=== PATIENT | male | born 1965 | race Caucasian/White ===

== ENCOUNTER 2018-12-15 11:38 | Emergency (ER) | payer OTHER ==
--- NOTE | 2018-12-15 12:35 | ER ---
Nurse's Notes [facility] Name: Frandy Gomes Age: 53 yrs Sex: Male : 1965 Arrival Date: 12/15/2018 Time: 11:42 Bed 18 Private MD: Diagnosis: Cellulitis of right upper limb Presentation: 12/15 11:52 Presenting complaint: Right hand swelling x 1 week. Transition of care: patient was not hb received from another setting of care. Onset of symptoms was November 2018. Risk Assessment: Do you want to hurt yourself or someone else? Patient reports no desire to harm self or others. Initial Sepsis Screen: Does the patient meet any 2 criteria? No. Patient's initial sepsis screen is negative. Does the patient have a suspected source of infection? No. Patient's initial sepsis screen is negative. Care prior to arrival: None. 11:52 Method Of Arrival: Ambulatory hb 11:52 Acuity: VARINDER 4 hb Historical: - Allergies: 11:52 No Known Allergies; hb - Immunization history:: Adult Immunizations up to date. - Social history:: Smoking status: Patient uses tobacco products, smokes one-half pack cigarettes per day. - Ebola Screening: : No symptoms or risks identified at this time. Screenin:01 Abuse screen: Denies threats or abuse. Denies injuries from another. Nutritional ca1 screening: No deficits noted. Tuberculosis screening: No symptoms or risk factors identified. Fall Risk None identified. Assessment: 12:01 General: Appears in no apparent distress. comfortable, Behavior is calm, cooperative, ca1 appropriate for age. Pain: Complains of pain in right hand Pain currently is 6 out of 10 on a pain scale. Quality of pain is described as burning, Pain began a week ago. Neuro: Level of Consciousness is awake, alert, obeys commands, Oriented to person, place, time, situation, Appropriate for age. Cardiovascular: Heart tones S1 S2 present Capillary refill < 3 seconds Patient's skin is warm and dry. Pulses are all present. Respiratory: Airway is patent Respiratory effort is even, unlabored, Respiratory pattern is regular, symmetrical, Breath sounds are clear bilaterally. GI: Abdomen is flat, non-distended, Bowel sounds present X 4 quads. Abd is soft and non tender X 4 quads. : No deficits noted. No signs and/or symptoms were reported regarding the genitourinary system. EENT: No deficits noted. No signs and/or symptoms were reported regarding the EENT system. Derm: Derm: Skin is healthy with good turgor, Skin is pink, warm \T\ dry. cellulitis noted on R hand and R wrist. Musculoskeletal: Circulation, motion, and sensation intact. Capillary refill < 3 seconds, Range of motion: intact in all extremities, Swelling present in right hand. 13:02 Reassessment: Patient appears in no apparent distress at this time. Patient is alert, ca1 oriented x 3, equal unlabored respirations, skin warm/dry/pink. Pt kept 15 minutes for observation following administration of tetanus toxoid. Vital Signs: 11:52 BP 134 / 87; Pulse 106; Resp 16; Temp 98.3; Pulse Ox 100% on R/A; Weight 74.84 kg; hb Height 5 ft. 6 in. (167.64 cm); Pain 3/10; 13:02 BP 116 / 81; Pulse 98; Resp 17 S; Pulse Ox 98% on R/A; ca1 11:52 Body Mass Index 26.63 (74.84 kg, 167.64 cm) hb ED Course: 11:42 Patient arrived in ED. mr 11:45 Aamir Sung, ARLETTE is PHCP. pm1 11:45 Justin Jose MD is Attending Physician. pm1 11:52 Arm band placed on. hb 11:53 Triage completed. hb 12:00 Luzma Nova, RN is Primary Nurse. ca1 12:01 Patient has correct armband on for positive identification. Bed in low position. Call ca1 light in reach. Side rails up X 1. Pulse ox on. NIBP on. 12:01 No provider procedures requiring assistance completed. Patient did not have IV access ca1 during this emergency room visit. 12:19 X-ray completed. Portable x-ray completed in exam room. Patient tolerated procedure jb2 well. 12:23 Hand Right 3 View XRAY In Process Unspecified. EDMS Administered Medications: 13:01 Drug: Tetanus-Diphtheria Toxoid Adult 0.5 ml {Supervisor [employer]: [employer]. Exp: ca1 08/10/2020. Lot #: [id number]. } Route: IM; Site: left deltoid; 13:20 Follow up: Response: No adverse reaction ca1 Outcome: 12:33 Discharge ordered by MD. pm1 13:19 Discharged to home ambulatory. ca1 13:19 Condition: stable 13:19 Discharge instructions given to patient, Instructed on discharge instructions, follow up and referral plans. medication usage, Demonstrated understanding of instructions, follow-up care, medications, Prescriptions given X 3. 13:20 Patient left the ED. ca1 Signatures: Dispatcher [employer] Noyola Jesse jb2 Aamir Sung, COMMERCIAL SALES CONSULTANT COMMERCIAL SALES CONSULTANT pm1 Melisa Epps RN RN Luzma Nova RN RN ca1 Corrections: (The following items were deleted from the chart) 13:02 12:01 Derm: Skin is healthy with good turgor, Skin is pink, warm \T\ dry. ca1 ca1
--- NOTE | 2018-12-15 12:35 | EDPHYS ---
Physician Documentation [facility] Name: Frandy Gomes Age: 53 yrs Sex: Male : 1965 Arrival Date: 12/15/2018 Time: 11:42 Bed 18 Private MD: ED Physician Justin Jose HPI: 12/15 12:32 This 53 yrs old Male presents to ER via Ambulatory with complaints of Hand pm1 Swelling. 12:32 The patient or guardian reports pain, swelling. The complaints affect the right hand. pm1 Context: The problem was sustained at home, resulted from an unknown cause. 12:32 Onset: The symptoms/episode began/occurred 1 week(s) ago. Modifying factors: The pm1 symptoms are alleviated by nothing, the symptoms are aggravated by movement. Associated signs and symptoms: The patient has no apparent associated signs or symptoms, Pertinent negatives: cyanosis distally, decreased sensation distally, fever, numbness distally, tingling distally. Severity of symptoms: in the emergency department the symptoms are unchanged. The patient has not recently seen a physician, and does not have an established primary care provider, just moved to [facility]. Historical: - Allergies: 11:52 No Known Allergies; hb - Immunization history:: Adult Immunizations up to date. - Social history:: Smoking status: Patient uses tobacco products, smokes one-half pack cigarettes per day. - Ebola Screening: : No symptoms or risks identified at this time. ROS: 12:32 Constitutional: Negative for fever, chills, and weight loss, Eyes: Negative for injury, pm1 pain, redness, and discharge, ENT: Negative for injury, pain, and discharge, Neck: Negative for injury, pain, and swelling, Cardiovascular: Negative for chest pain, palpitations, and edema, Respiratory: Negative for shortness of breath, cough, wheezing, and pleuritic chest pain, Abdomen/GI: Negative for abdominal pain, nausea, vomiting, diarrhea, and constipation, Back: Negative for injury and pain. 12:32 Skin: Negative for injury, rash, and discoloration, Neuro: Negative for headache, weakness, numbness, tingling, and seizure. 12:32 MS/extremity: Positive for pain, swelling, of the right hand. Exam: 12:32 Constitutional: This is a well developed, well nourished patient who is awake, alert, pm1 and in no acute distress. Head/Face: Normocephalic, atraumatic. Chest/axilla: Normal chest wall appearance and motion. Nontender with no deformity. No lesions are appreciated. Cardiovascular: Regular rate and rhythm with a normal S1 and S2. No gallops, murmurs, or rubs. Normal PMI, no JVD. No pulse deficits. Respiratory: Lungs have equal breath sounds bilaterally, clear to auscultation and percussion. No rales, rhonchi or wheezes noted. No increased work of breathing, no retractions or nasal flaring. Abdomen/GI: Soft, non-tender, with normal bowel sounds. No distension or tympany. No guarding or rebound. No evidence of tenderness throughout. Back: No spinal tenderness. No costovertebral tenderness. Full range of motion. Skin: Warm, dry with normal turgor. Normal color with no rashes, no lesions, and no evidence of cellulitis. 12:32 Musculoskeletal/extremity: Extremities: grossly normal except: noted in the dorsum of right hand: swelling, tenderness, There is no evidence of decreased ROM, deformity. 12:32 Neuro: Orientation: is normal, Motor: is normal, moves all fours, Gait: is steady, at a normal pace, without difficulty. Vital Signs: 11:52 BP 134 / 87; Pulse 106; Resp 16; Temp 98.3; Pulse Ox 100% on R/A; Weight 74.84 kg; hb Height 5 ft. 6 in. (167.64 cm); Pain 3/10; 13:02 BP 116 / 81; Pulse 98; Resp 17 S; Pulse Ox 98% on R/A; ca1 11:52 Body Mass Index 26.63 (74.84 kg, 167.64 cm) hb MDM: 11:45 Patient medically screened. pm1 11:56 Data reviewed: vital signs. Data interpreted: Pulse oximetry: on room air is 100 %. pm1 Interpretation: normal. 12:32 Counseling: I had a detailed discussion with the patient and/or guardian regarding: the pm1 historical points, exam findings, and any diagnostic results supporting the discharge/admit diagnosis, radiology results, the need for outpatient follow up, to return to the emergency department if symptoms worsen or persist or if there are any questions or concerns that arise at home. 12:55 ED course: patient reports that he has just moved here to this location 1 week ago from pm1 [place]. He has not seen a PCP in many months. has two pages of medications that he wants refilled. Wants Keppra 1000mg PO BID refilled that he has not taken for 1 year. No seizures since stopping Keppra. Wants insulin syringes and test strips. Has insulin bottles at home. Wants an inhaler for history of COPD. Will prescribe medications for cellulitis of hand, abx PO and topical with pain medication. Will prescribe inhaler, syringes and test strips. The rest of the patient's medications need to be restarted by a PCP. 12/15 11:54 Order name: Hand Right 3 View XRAY; Complete Time: 12:46 pm1 Administered Medications: 13:01 Drug: Tetanus-Diphtheria Toxoid Adult 0.5 ml {Supervisor [employer]: [employer]. Exp: ca1 08/10/2020. Lot #: [id number]. } Route: IM; Site: left deltoid; 13:20 Follow up: Response: No adverse reaction ca1 Disposition: 13:28 Co-signature as Attending Physician, Justin Jose MD I agree with the assessment and kdr plan of care. Disposition: 12/15/18 12:33 Discharged to Home. Impression: Cellulitis of right upper limb. - Condition is Stable. - Discharge Instructions: Cellulitis, Adult. - Prescriptions for Bactroban 2 % Topical Ointment - Apply to affected area 1 application by TOPICAL route every 12 hours; 30 gram. Bactrim DS 800- 160 mg Oral Tablet - take 1 tablet by ORAL route every 12 hours for 10 days; 20 tablet. Albuterol Sulfate 90 mcg/actuation - inhale 1-2 puff by INHALATION route every 4-6 hours; 1 Inhaler. Tylenol- Codeine #3 300-30 mg Oral Tablet - take 2 tablets by ORAL route every 6 hours As needed; 20 tablet. - Medication Reconciliation Form, Thank You Letter, Antibiotic Education, Prescription Opioid Use form. - Follow up: Emergency Department; When: As needed; Reason: Worsening of condition. Follow up: Private Physician; When: 2 - 3 days; Reason: Recheck today's complaints, Continuance of care, Re-evaluation by your physician. - Problem is new. - Symptoms have improved. Signatures: Dispatcher [employer] EDMS Justin Jose MD MD kdr Aamir Sung NP [employer] pm1 Melisa Epps, RN RN Luzma Nova RN RN ca1 Corrections: (The following items were deleted from the chart) 13:20 12:33 12/15/2018 12:33 Discharged to Home. Impression: Cellulitis of right upper limb. ca1 Condition is Stable. Discharge Instructions: Cellulitis, Adult. Prescriptions for Bactroban 2 % Topical Ointment - Apply to affected area 1 application by TOPICAL route every 12 hours; 30 gram, Bactrim DS 800-160 mg Oral Tablet - take 1 tablet by ORAL route every 12 hours for 10 days; 20 tablet, Albuterol Sulfate 90 mcg/actuation - inhale 1-2 puff by INHALATION route every 4-6 hours; 1 Inhaler. and Forms are Medication Reconciliation Form, Thank You Letter, Antibiotic Education, Prescription Opioid Use. Follow up: Emergency Department; When: As needed; Reason: Worsening of condition. Follow up: Private Physician; When: 2 - 3 days; Reason: Recheck today's complaints, Continuance of care, Re-evaluation by your physician. Problem is new. Symptoms have improved. pm1
--- NOTE | 2018-12-15 12:36 | RAD REPORT ---
EXAM DESCRIPTION: RAD - Hand Right 3 View - 12/15/2018 12:20 pm CLINICAL HISTORY: Right hand pain FINDINGS: No fracture or dislocation is seen. No bone or joint abnormality
[2018-12-15] MEDS ORDERED: TETANUS & DIPHTHERIA TOX,ADULT 0.5 ML VIAL ONE (12:57)
[2018-12-15 13:24] VITALS: TEMP 98.3
[2018-12-15 13:26] VITALS: BP 116/81; O2SAT 98
== END 2018-12-15 13:20 | disposition home or self-care (01) ==
LOC: ER 11:38
DX: L03.113 Cellulitis of right upper limb (principal); F17.210 Nicotine dependence, cigarettes, uncomplicated; J44.9 Chronic obstructive pulmonary disease, unspecified; Z23 Encounter for immunization
CPT/HCPCS: 90471; 90714; 99284

== ENCOUNTER 2018-12-20 10:42 | Inpatient (IN) | payer OTHER ==
--- OUTSIDE RECORDS SUMMARY | 2018-12-20 10:46 | XMS REPORT ---
:1965 [facility] [address] [place] [address] Care Team Providers Name Role Phone Unavailable Unavailable Unavailable Payers Payer Name Policy Type Policy Number Effective Date Expiration Date Problems This patient has no known problems. Allergies, Adverse Reactions, Alerts Allergy Allergy Status Severity Reaction(s) Onset Inactive Treating Comments Name Type Date Date Clinician No Known DA Active U 2016-04 Allergies -17 00:00:0 0 No Known DA Active U 2016-01 Allergies -03 00:00:0 0 Medications This patient has no known medications. Encounters Start End Encounter Admission Attending Care Care Encounter Date/Time Date/Time Type Type Clinicians Facility Department ID 2018-09-03 2018-09-03 Emergency E [id number] 00:28:00 00:28:00 2018-05-12 2018-05-12 Outpatient [facility] [id number] 00:00:00 00:00:00 2018-04-13 2018-04-13 Outpatient [facility] [id number] 00:00:00 00:00:00 2018-02-23 2018-02-23 Outpatient [facility] [id number] 00:00:00 00:00:00 2018-02-19 2018-02-19 Outpatient [facility] [id number] 00:00:00 00:00:00 2018-02-16 2018-02-16 Outpatient [facility]HS [facility] [id number] 00:00:00 00:00:00 2018-01-25 2018-01-25 Outpatient [facility]HS [facility] [id number] 00:00:00 00:00:00 2018-01-22 2018-01-22 Outpatient [facility]HS [facility] [id number] 15:47:04 15:47:04 2018-01-20 2018-01-20 Outpatient [facility]HS [facility] [id number] 00:00:00 00:00:00 2018-01-19 2018-01-19 Outpatient [facility] [id number] 15:13:11 15:13:11 2018-01-19 2018-01-19 Outpatient [facility]HS [facility] [id number] 00:00:00 00:00:00 2017-12-17 2017-12-17 Outpatient [facility] [id number] 00:00:00 00:00:00 2017-11-10 2017-11-10 Outpatient [facility]HS [facility] [id number] 00:00:00 00:00:00 2017-10-29 2017-10-29 Outpatient [facility] [id number] 00:00:00 00:00:00 2017-10-06 2017-10-06 Outpatient [facility] [id number] 00:00:00 00:00:00 2017-09-15 2017-09-15 Outpatient [facility] [id number] 09:41:29 09:41:29 2017-08-27 2017-08-27 Outpatient [facility] [id number] 08:29:31 08:29:31 2017-08-26 2017-08-26 Outpatient [facility] [id number] 00:00:00 00:00:00 2017-08-21 2017-08-21 Outpatient [facility] [id number] 13:11:02 13:11:02 2017-08-17 2017-08-17 Outpatient [facility] [id number] 00:00:00 00:00:00 2017-08-13 2017-08-13 Outpatient [facility] [id number] 00:00:00 00:00:00 2017-07-10 2017-07-10 Outpatient [facility] [id number] 11:10:51 11:10:51 2017-07-10 2017-07-10 Outpatient [facility] [id number] 10:58:18 10:58:18 2017-07-10 2017-07-10 Outpatient [facility] [id number] 10:27:13 10:27:13 2017-07-09 2017-07-09 Outpatient [facility] [id number] 00:00:00 00:00:00 2017-07-08 2017-07-08 Outpatient [facility] [id number] 09:18:37 09:18:37 2017-07-08 2017-07-08 Outpatient [facility] [id number] 00:00:00 00:00:00 2017-07-08 2017-07-08 Outpatient [facility] [id number] 00:00:00 00:00:00 2017-07-08 2017-07-08 Outpatient [facility] [id number] 00:00:00 00:00:00 2017-06-30 2017-06-30 Outpatient [facility] [id number] 00:00:00 00:00:00 2017-06-29 2017-06-29 Outpatient [facility] [id number] 00:00:00 00:00:00 2017-06-18 2017-06-18 Outpatient [facility] [id number] 00:00:00 00:00:00 2017-05-07 2017-05-07 Outpatient [facility] [id number] 00:00:00 00:00:00 2017-04-21 2017-04-21 Outpatient [facility] [id number] 10:37:11 10:37:11 2017-04-21 2017-04-21 Outpatient [facility] [id number] 10:22:34 10:22:34 2017-04-21 2017-04-21 Outpatient [facility] [id number] 00:00:00 00:00:00 2017-04-14 2017-04-14 Outpatient [facility] [id number] 00:00:00 00:00:00 2017-04-14 2017-04-14 Outpatient [facility] [id number] 00:00:00 00:00:00 2017-02-23 2017-02-23 Outpatient [facility] [id number] 00:00:00 00:00:00 2017-02-18 2017-02-18 Outpatient [facility] [id number] 00:00:00 00:00:00 2017-02-18 2017-02-18 Outpatient [facility] [id number] 00:00:00 00:00:00 2017-02-11 2017-02-11 Outpatient [facility] [id number] 10:36:34 10:36:34 2017-02-03 2017-02-03 Outpatient [facility] [id number] 00:00:00 00:00:00 2017-01-29 2017-01-29 Outpatient [facility] [id number] 00:00:00 00:00:00 2017-01-20 2017-01-20 Outpatient [facility] [id number] 00:00:00 00:00:00 2017-01-06 2017-01-06 Outpatient [facility] [id number] 00:00:00 00:00:00 2016-12-29 2016-12-29 Outpatient [facility] [id number] 00:00:00 00:00:00 2016-12-22 2016-12-22 Outpatient [facility] [id number] 00:00:00 00:00:00 2016-12-05 2016-12-05 Outpatient [facility] [id number] 00:00:00 00:00:00 2016-11-25 2016-11-25 Outpatient [facility] [id number] 00:00:00 00:00:00 2016-11-07 2016-11-07 Outpatient [facility] [id number] 00:00:00 00:00:00 2016-10-22 2016-10-22 Outpatient [facility] [id number] 00:00:00 00:00:00 2016-10-22 2016-10-22 Outpatient [facility] [id number] 00:00:00 00:00:00 2016-10-14 2016-10-14 Outpatient [facility]HS [facility] [id number] 00:00:00 00:00:00 2016-10-14 2016-10-14 Outpatient [facility] [id number] 00:00:00 00:00:00 2016-10-14 2016-10-14 Outpatient [facility] [id number] 00:00:00 00:00:00 2016-10-13 2016-10-13 Outpatient [facility]HS [facility] [id number] 00:00:00 00:00:00 2016-10-06 2016-10-06 Outpatient [facility] [id number] 00:00:00 00:00:00 2016-09-26 2016-09-26 Outpatient [facility] [id number] 13:05:03 13:05:03 2016-09-26 2016-09-26 Outpatient [facility] [id number] 11:08:45 11:08:45 2016-09-26 2016-09-26 Outpatient [facility] [id number] 00:00:00 00:00:00 2016-09-23 2016-09-23 Outpatient [facility] [id number] 08:22:53 08:22:53 2016-09-22 2016-09-22 Outpatient [facility] [id number] 00:00:00 00:00:00 2016-09-02 2016-09-02 Outpatient [facility] [id number] 10:13:54 10:13:54 2016-09-02 2016-09-02 Outpatient [facility] [id number] 09:14:14 09:14:14 2016-09-01 2016-09-01 Outpatient [facility] [id number] 00:00:00 00:00:00 2016-08-27 2016-08-27 Outpatient [facility] [id number] 12:05:53 12:05:53 2016-08-27 2016-08-27 Outpatient [facility] [id number] 00:00:00 00:00:00 2016-08-06 2016-08-06 Outpatient [facility] [id number] 09:30:09 09:30:09 2016-08-05 2016-08-05 Outpatient [facility] [id number] 07:45:01 07:45:01 2016-08-05 2016-08-05 Outpatient [facility] [id number] 07:31:35 07:31:35 2016-08-05 2016-08-05 Outpatient [facility] [id number] 07:03:38 07:03:38 2016-08-05 2016-08-05 Outpatient [facility] [id number] 00:00:00 00:00:00 2016-07-30 2016-07-30 Outpatient [facility] [id number] 08:54:41 08:54:41 2016-07-30 2016-07-30 Outpatient [facility] [id number] 08:31:03 08:31:03 2016-07-30 2016-07-30 Outpatient [facility]HS [id number] 00:00:00 00:00:00 2016-07-04 2016-07-04 Outpatient [facility] [id number] 13:13:54 13:13:54 2016-06-18 2016-06-18 Emergency [facility] [id number] 06:01:16 06:01:16 2016-06-18 2016-06-18 Emergency [facility] [id number] 03:35:11 03:35:11 2016-06-12 2016-06-12 Outpatient [facility] [id number] 15:43:01 15:43:01 2016-06-10 2016-06-10 Outpatient [facility] [id number] 15:07:17 15:07:17 2016-06-03 2016-06-03 Emergency [facility] [id number] 22:18:53 22:18:53 2016-06-03 2016-06-03 Emergency [facility] [id number] 21:25:09 21:25:09 2016-06-03 2016-06-03 Outpatient [facility] [id number] 13:20:06 13:20:06 2016-04-24 2016-04-24 Outpatient [facility] [id number] 15:07:56 15:07:56 2016-04-01 2016-04-01 Outpatient [facility] [id number] 00:00:00 00:00:00 2016-03-19 2016-03-19 Outpatient [facility] [id number] 09:28:43 09:28:43 2016-03-17 2016-03-17 Outpatient [facility] [id number] 14:23:13 14:23:13 2016-03-17 2016-03-17 Outpatient [facility] [id number] 11:07:20 11:07:20 2016-03-17 2016-03-17 Outpatient [facility] [id number] 10:16:12 10:16:12 2016-03-11 2016-03-11 Outpatient [facility] [id number] 11:14:32 11:14:32 2016-02-18 2016-02-18 Outpatient [facility] [id number] 10:29:58 10:29:58 2016-02-12 2016-02-12 Outpatient [facility] [id number] 11:32:37 11:32:37 2016-02-12 2016-02-12 Outpatient [facility] [id number] 10:50:02 10:50:02 2016-02-08 2016-02-08 Outpatient [facility] [id number] 09:42:08 09:42:08 Results Test Description Test Time Test Comments Text Results Atomic Results Result Comments POC Glucose 2018-10-04 10:46:21 Test Item Value Reference Range Comments Glucose POC (test code=Glucose 427 mg/dL 70-115 Notify RN or MDIf you consider your POC) patient critically ill, the Eliza-Accu Check Infrom II meter should not be used for Glucose determination. Draw a venous Glucose and send to the main Lab for analysis. POC [id number] 07:41:17 Test Item Value Reference Range Comments Glucose POC (test 268 mg/dL 70-115 Notify RN or MDIf you consider code=Glucose POC) your patient critically ill, the Eliza-Accu Check Infrom II meter should not be used for Glucose determination. Draw a venous Glucose and send to the main Lab for analysis. POC [id number] 20:06:15 Test Item Value Reference Range Comments Glucose POC (test 259 mg/dL 70-115 If you consider your patient code=Glucose POC) critically ill, the Eliza-Accu Check Infrom II meter should not be used for Glucose determination. Draw a venous Glucose and send to the main Lab for analysis. POC [id number] 16:24:53 Test Item Value Reference Range Comments Glucose POC (test 171 mg/dL 70-115 If you consider your patient code=Glucose POC) critically ill, the Eliza-Accu Check Infrom II meter should not be used for Glucose determination. Draw a venous Glucose and send to the main Lab for analysis. Troponin [id number] 13:20:34 Test Item Value Reference Range Comments Troponin-T (test 14.390 ng/L 0.000-22.000 The CV of the assay at 99th code=Troponin-T) percentile for both male and female patient population is < 10%. A rise and fall in MARKELL with at least one value above the 99th percentile with clinical evidence of myocardial ischemia would support a diagnosis of AMI. A delta of at least 20% is recommended to access acute changes in results above the 99th percentile in serial measurements. Stable MARKELL levels (<20%) delta above the 99th percentile URL would support a diagnosis of chronic myocardial injury. Creatine [id number] 13:19:47 Test Item Value Reference Range Comments CK (test code=CK) 138 U/L 39-308 Creatine Kinase MB [id number] 13:18:50 Test Item Value Reference Range Comments CKMB (test code=CKMB) 4.8 ng/mL 0.0-4.9 Creatine Kinase MB [id number] 13:18:50 Test Item Value Reference Range Comments CKMB (test code=CKMB) 4.8 ng/mL 0.0-4.9 CKMB % (test code=CKMB %) 3.5 % 0.0-3.4 Drugs of Abuse Urine [id number] 13:05:26 Test Item Value Reference Range Comments Amphetamine Screen Ur (test Negative Negative For diagnostic purposes code=Amphetamine Screen Ur) only. Positive results should always be assessed in conjunction with a patient's medical history. Barbiturate Screen Ur (test Negative Negative code=Barbiturate Screen Ur) Benzodiazepines Ur (test Negative Negative code=Benzodiazepines Ur) Cocaine Screen Ur (test Negative Negative code=Cocaine Screen Ur) U Methadone (test code=U Negative Negative Methadone) Opiate Screen Ur (test Negative Negative code=Opiate Screen Ur) U PCP Scrn (test code=U PCP Negative Negative Scrn) U Propoxyphene (test code=U Negative Negative Propoxyphene) Cannabinoid Screen Ur (test Negative Negative code=Cannabinoid Screen Ur) POC [id number] 11:32:18 Test Item Value Reference Range Comments Glucose POC (test 296 mg/dL 70-115 If you consider your patient code=Glucose POC) critically ill, the Eliza-Accu Check Infrom II meter should not be used for Glucose determination. Draw a venous Glucose and send to the main Lab for analysis. Thyroid Stimulating [id number] 07:33:08 Test Item Value Reference Range Comments TSH (test code=TSH) 1.020 mIU/mL 0.270-4.200 Hemoglobin [id number] 07:32:52 Test Item Value Reference Range Comments Hemoglobin A1c (test 11.0 % 4.8-5.9 Non Diabetic 4.8-5.9%Diabetic code=Hemoglobin A1c) <7.0% Lipid [id number] 07:27:53 Test Item Value Reference Range Comments Cholesterol Total (test 156 mg/dL 0-200 RISK OF HEART code=Cholesterol Total) DISEASEPublished by [place] Heart Association Analyte Optimal Borderline Increased RiskCHOL <200 200-239 >240TRIG <150 150-199 >200HDL Male >60 <40HDL Female >60 <50LDL <100 130-159 >160LDL Near optimal is 100-129 Triglycerides (test 429 mg/dL 9-200 code=Triglycerides) HDL (test code=HDL) 23 mg/dL 40-60 LDL (test code=LDL) N/A Trig >400 0-130 LDL calculation is mg/dL unreliable when Triglyceride is greater than 400. VLDL (test code=VLDL) N/A Trig >400 5-40 VLDL calculation is mg/dL unreliable when Triglyceride is greater than 400. Chol/HDL (test 6.8 ratio 0.0-5.0 code=Chol/HDL) LDL/HDL Ratio (test N/A Trig >400 LDL/HDL Ratio calculation code=LDL/HDL Ratio) is unreliable when Triglyceride is greater than 400. Magnesium [id number] 07:27:53 Test Item Value Reference Range Comments Magnesium Level (test code=Magnesium Level) 1.5 mg/dL 1.7-2.5 Phosphorus [id number] 07:27:53 Test Item Value Reference Range Comments Phosphorus Level (test code=Phosphorus Level) 2.80 mg/dL 2.70-4.50 Comprehensive Metabolic [id number] 07:27:52 Test Item Value Reference Range Comments Sodium Level (test code=Sodium 138.0 mmol/L 135.0-145.0 Level) Potassium Level (test code=Potassium 4.1 mmol/L 3.5-5.1 Level) Chloride Level (test code=Chloride 100 mmol/L 98-105 Level) CO2 (test code=CO2) 20 mmol/L 22-29 Anion Gap (test code=Anion Gap) 18 mmol/L 7-16 BUN (test code=BUN) 11.40 mg/dL 6.00-20.00 Creatinine Level (test 0.90 mg/dL 0.70-1.20 code=Creatinine Level) BUN/Creat Ratio (test code=BUN/Creat 13 Ratio) Glucose Level (test code=Glucose 193 mg/dL 70-115 Level) Calcium Level (test code=Calcium 8.5 mg/dL 8.3-10.5 Level) Alk Phos (test code=Alk Phos) 194 U/L 40-129 Bilirubin Total (test code=Bilirubin <0.1 mg/dL 0.1-0.9 Total) Albumin Level (test code=Albumin 3.9 g/dL 3.5-5.2 Level) Protein Total (test code=Protein 6.6 g/dL 6.4-8.3 Total) ALT (test code=ALT) 13 U/L 1-41 AST (test code=AST) 17 U/L 1-40 Specimen Hemolyzed. Globulin (test code=Globulin) 2.7 g/dL 2.9-3.1 A/G Ratio (test code=A/G Ratio) 1.4 ratio Comprehensive Metabolic [id number] 07:27:52 Test Item Value Reference Range Comments Sodium Level (test 138.0 mmol/L 135.0-145.0 code=Sodium Level) Potassium Level (test 4.1 mmol/L 3.5-5.1 code=Potassium Level) Chloride Level (test 100 mmol/L 98-105 code=Chloride Level) CO2 (test code=CO2) 20 mmol/L 22-29 Anion Gap (test 18 mmol/L 7-16 code=Anion Gap) BUN (test code=BUN) 11.40 mg/dL 6.00-20.00 Creatinine Level (test 0.90 mg/dL 0.70-1.20 code=Creatinine Level) BUN/Creat Ratio (test 13 code=BUN/Creat Ratio) Glucose Level (test 193 mg/dL 70-115 code=Glucose Level) Calcium Level (test 8.5 mg/dL 8.3-10.5 code=Calcium Level) Alk Phos (test code=Alk 194 U/L 40-129 Phos) Bilirubin Total (test <0.1 mg/dL 0.1-0.9 code=Bilirubin Total) Albumin Level (test 3.9 g/dL 3.5-5.2 code=Albumin Level) Protein Total (test 6.6 g/dL 6.4-8.3 code=Protein Total) ALT (test code=ALT) 13 U/L 1-41 AST (test code=AST) 17 U/L 1-40 Specimen Hemolyzed. Globulin (test 2.7 g/dL 2.9-3.1 code=Globulin) A/G Ratio (test code=A/G 1.4 ratio Ratio) eGFR AA (test code=eGFR >60 mL/min/1.73 m2 eGFR (estimated AA) Glomerular Filtration Rate) is an estimated value, calculated from the patient's serum creatinine using the MDRD equation. It is NOT the patient's actual GFR. The eGFR provides a more clinically useful measure of kidney disease than serum creatinine alone.This calculation takes sex and race into account, if the information is provided. If the race is not provided, and the patient is -[place], multiply by 1.212. If sex is not provided, and the patient is female, multiply by 0.742. Results for patients <18 years of age have not been validated by the MDRD study and should be interpreted with caution. eGFR Result Interpretation:eGFR > or=60 is in the Normal RangeeGFR < 60 may mean kidney diseaseeGFR < 15 may mean kidney failure Ranges recommended by the National Kidney Foundation, http://nkdep.nih.gov Comprehensive Metabolic [id number] 07:27:52 Test Item Value Reference Range Comments Sodium Level (test 138.0 mmol/L 135.0-145.0 code=Sodium Level) Potassium Level (test 4.1 mmol/L 3.5-5.1 code=Potassium Level) Chloride Level (test 100 mmol/L 98-105 code=Chloride Level) CO2 (test code=CO2) 20 mmol/L 22-29 Anion Gap (test 18 mmol/L 7-16 code=Anion Gap) BUN (test code=BUN) 11.40 mg/dL 6.00-20.00 Creatinine Level (test 0.90 mg/dL 0.70-1.20 code=Creatinine Level) BUN/Creat Ratio (test 13 code=BUN/Creat Ratio) Glucose Level (test 193 mg/dL 70-115 code=Glucose Level) Calcium Level (test 8.5 mg/dL 8.3-10.5 code=Calcium Level) Alk Phos (test code=Alk 194 U/L 40-129 Phos) Bilirubin Total (test <0.1 mg/dL 0.1-0.9 code=Bilirubin Total) Albumin Level (test 3.9 g/dL 3.5-5.2 code=Albumin Level) Protein Total (test 6.6 g/dL 6.4-8.3 code=Protein Total) ALT (test code=ALT) 13 U/L 1-41 AST (test code=AST) 17 U/L 1-40 Specimen Hemolyzed. Globulin (test 2.7 g/dL 2.9-3.1 code=Globulin) A/G Ratio (test code=A/G 1.4 ratio Ratio) eGFR AA (test code=eGFR >60 mL/min/1.73 m2 eGFR (estimated AA) Glomerular Filtration Rate) is an estimated value, calculated from the patient's serum creatinine using the MDRD equation. It is NOT the patient's actual GFR. The eGFR provides a more clinically useful measure of kidney disease than serum creatinine alone.This calculation takes sex and race into account, if the information is provided. If the race is not provided, and the patient is -[place], multiply by 1.212. If sex is not provided, and the patient is female, multiply by 0.742. Results for patients <18 years of age have not been validated by the MDRD study and should be interpreted with caution. eGFR Result Interpretation:eGFR > or=60 is in the Normal RangeeGFR < 60 may mean kidney diseaseeGFR < 15 may mean kidney failure Ranges recommended by the National Kidney Foundation, http://nkdep.nih.gov eGFR Non-AA (test >60.00 mL/min/1.73 eGFR (estimated code=eGFR Non-AA) m2 Glomerular Filtration Rate) is an estimated value, calculated from the patient's serum creatinine using the MDRD equation. It is NOT the patient's actual GFR. The eGFR provides a more clinically useful measure of kidney disease than serum creatinine alone.This calculation takes sex and race into account, if the information is provided. If the race is not provided, and the patient is -[place], multiply by 1.212. If sex is not provided, and the patient is female, multiply by 0.742. Results for patients <18 years of age have not been validated by the MDRD study and should be interpreted with caution. eGFR Result Interpretation:eGFR > or=60 is in the Normal RangeeGFR < 60 may mean kidney diseaseeGFR < 15 may mean kidney failure Ranges recommended by the National Kidney Foundation, http://nkdep.nih.gov POC [id number] 07:20:10 Test Item Value Reference Range Comments Glucose POC (test 225 mg/dL 70-115 If you consider your patient code=Glucose POC) critically ill, the Eliza-Accu Check Infrom II meter should not be used for Glucose determination. Draw a venous Glucose and send to the main Lab for analysis. Creatine [id number] 07:19:03 Test Item Value Reference Range Comments CK (test code=CK) 119 U/L 39-308 Troponin [id number] 07:19:03 Test Item Value Reference Range Comments Troponin-T (test 19.390 ng/L 0.000-22.000 The CV of the assay at 99th code=Troponin-T) percentile for both male and female patient population is < 10%. A rise and fall in MARKELL with at least one value above the 99th percentile with clinical evidence of myocardial ischemia would support a diagnosis of AMI. A delta of at least 20% is recommended to access acute changes in results above the 99th percentile in serial measurements. Stable MARKELL levels (<20%) delta above the 99th percentile URL would support a diagnosis of chronic myocardial injury. Creatine Kinase MB [id number] 07:17:15 Test Item Value Reference Range Comments CKMB (test code=CKMB) 3.8 ng/mL 0.0-4.9 Creatine Kinase MB [id number] 07:17:15 Test Item Value Reference Range Comments CKMB (test code=CKMB) 3.8 ng/mL 0.0-4.9 CKMB % (test code=CKMB %) 3.2 % 0.0-3.4 Complete Blood Count without [id number] 06:59:02 Test Item Value Reference Range Comments WBC (test code=WBC) 6.5 x10 4.4-10.5 RBC (test code=RBC) 4.01 x10 4.10-5.70 Hgb (test code=Hgb) 11.3 g/dL 13.4-17.4 Hct (test code=Hct) 33.6 % 38.7-52.0 MCV (test code=MCV) 83.80 fL 80.00-100.00 MCH (test code=MCH) 28.2 pg 27.0-32.5 MCHC (test code=MCHC) 33.60 g/dL 32.00-37.50 RDW CV (test code=RDW CV) 16.6 % 11.5-14.5 Platelets (test code=Platelets) 177.0 x10 140.0-440.0 MPV (test code=MPV) 9.6 fL nRBC (test code=nRBC) 0 NRBC Abs (test code=NRBC Abs) 0.00 x10 IPF (test code=IPF) 0 % POC [id number] 06:12:19 Test Item Value Reference Range Comments Glucose POC (test 267 mg/dL 70-115 If you consider your patient code=Glucose POC) critically ill, the Eliza-Accu Check Infrom II meter should not be used for Glucose determination. Draw a venous Glucose and send to the main Lab for analysis. POC [id number] 05:00:38 Test Item Value Reference Range Comments Glucose POC (test 61 mg/dL 70-115 If you consider your patient code=Glucose POC) critically ill, the Eliza-Accu Check Infrom II meter should not be used for Glucose determination. Draw a venous Glucose and send to the main Lab for analysis. POC [id number] 04:01:42 Test Item Value Reference Range Comments Glucose POC (test 151 mg/dL 70-115 Notify RN or MDIf you consider code=Glucose POC) your patient critically ill, the Eliza-Accu Check Infrom II meter should not be used for Glucose determination. Draw a venous Glucose and send to the main Lab for analysis. POC [id number] 03:15:14 Test Item Value Reference Range Comments Glucose POC (test 501 mg/dL 70-115 Notify RN or MDIf you consider code=Glucose POC) your patient critically ill, the [facility]-Accu Check Infrom II meter should not be used for Glucose determination. Draw a venous Glucose and send to the main Lab for analysis. Lactic Acid, Plasma (Venous)2018-10-03 02:23:55 Test Item Value Reference Range Comments Lactic Acid, Plasma (Venous) (test code=Lactic 1.9 mmol/L 0.5-1.9 Acid, Plasma (Venous)) POC [id number] 02:08:55 Test Item Value Reference Range Comments pH Art (test code=pH Art) 7.32 7.35-7.45 pH Temp Andrei Art (test code=pH Temp Andrei Art) 7.32 pCO2 Art (test code=pCO2 Art) 42 mmHg 35-45 pCO2 Temp Andrei Art (test code=pCO2 Temp Andrei 42 mmHg Art) pO2 Art (test code=pO2 Art) 77 mmHg 80-100 pO2 Temp Andrei Art (test code=pO2 Temp Andrei Art) 77 mmHg ctHb Art (test code=ctHb Art) 10.4 g/dL 12.2-17.4 O2 Sat Art (test code=O2 Sat Art) 94.4 % 80.0-100.0 FO2Hb Art (test code=FO2Hb Art) 91.2 % 0.0-100.0 FCOHb Art (test code=FCOHb Art) 2.4 % 0.0-20.0 FMetHb Art (test code=FMetHb Art) 1.0 % 0.0-20.0 HCO3 Art (test code=HCO3 Art) 21.2 mmol/L 22.0-26.0 L Hct Art (test code=Hct Art) 32 % 34-52 Na Art (test code=Na Art) 139 mmol/L 135-145 K Art (test code=K Art) 3.1 mmol/L 3.5-4.5 iCa Art (test code=iCa Art) 1.16 mmol/L 1.00-1.50 Cl Art (test code=Cl Art) 105 mmol/L 95-105 Glu Art (test code=Glu Art) 275 mg/dL 75-115 Base Excess Arterial (test code=Base Excess -4.7 Arterial) FiO2 Art (test code=FiO2 Art) 21 % Lactate Art (test code=Lactate Art) 1.6 mmol/L 0.5-2.2 Draw Site (test code=Draw Site) Brachial. R POC [id number] 01:25:51 Test Item Value Reference Range Comments Glucose POC (test 366 mg/dL 70-115 If you consider your patient code=Glucose POC) critically ill, the Eliza-Accu Check Infrom II meter should not be used for Glucose determination. Draw a venous Glucose and send to the main Lab for analysis. [id number] 22:30:52 Test Item Value Reference Range Comments Acetone (Ketones) (test code=Acetone (Ketones)) Negative Negative Lot # (test code=Lot #) [id number] Expiration Dt (test code=Expiration Dt) [id number] Neg Control (test code=Neg Control) Negative Pos Control (test code=Pos Control) Positive Urinalysis with Culture, if [id number] 22:29:03 Test Item Value Reference Range Comments UA Color (test code=UA Color) STRAW Yellow UA Appear (test code=UA CLEAR Clear Appear) UA pH (test code=UA pH) 5 UA Spec Grav (test code=UA 1.020 1.001-1.035 Spec Grav) UA Glucose (test code=UA 1000 mg/dL Negative Glucose) UA Bili (test code=UA Bili) NEG Negative UA Ketones (test code=UA NEG Negative Ketones) UA Blood (test code=UA Blood) NEG Negative UA Protein (test code=UA NEG Negative Protein) UA Urobilinogen (test code=UA 0.2 mg/dL Urobilinogen) UA Nitrite (test code=UA NEG Negative Nitrite) UA Leuk Est (test code=UA Leuk NEG Negative Est) UA Micro Ind? (test code=UA Not Indicated Not Indicated Result created by rule Micro Ind?) [email or web address] Comprehensive Metabolic [id number] 22:13:44 Test Item Value Reference Range Comments Sodium Level (test 120.0 mmol/L 135.0-145.0 code=Sodium Level) Potassium Level (test 5.2 mmol/L 3.5-5.1 code=Potassium Level) Chloride Level (test 81 mmol/L 98-105 code=Chloride Level) CO2 (test code=CO2) 21 mmol/L 22-29 Anion Gap (test 18 mmol/L 7-16 code=Anion Gap) BUN (test code=BUN) 17.60 mg/dL 6.00-20.00 Creatinine Level (test 1.50 mg/dL 0.70-1.20 code=Creatinine Level) BUN/Creat Ratio (test 12 code=BUN/Creat Ratio) Glucose Level (test 920 mg/dL 70-115 Critical results called code=Glucose Level) to Luiz BOSS at 10/02/2018 22:13:21 CDT_ by RS_. Read back and verified? _yes Calcium Level (test 8.4 mg/dL 8.3-10.5 code=Calcium Level) Alk Phos (test code=Alk 236 U/L 40-129 Phos) Bilirubin Total (test 0.3 mg/dL 0.1-0.9 code=Bilirubin Total) Albumin Level (test 4.1 g/dL 3.5-5.2 code=Albumin Level) Protein Total (test 6.7 g/dL 6.4-8.3 code=Protein Total) ALT (test code=ALT) 14 U/L 1-41 AST (test code=AST) 16 U/L 1-40 Globulin (test 2.6 g/dL 2.9-3.1 code=Globulin) A/G Ratio (test code=A/G 1.6 ratio Ratio) eGFR AA (test code=eGFR 59 mL/min/1.73 m2 eGFR (estimated AA) Glomerular Filtration Rate) is an estimated value, calculated from the patient's serum creatinine using the MDRD equation. It is NOT the patient's actual GFR. The eGFR provides a more clinically useful measure of kidney disease than serum creatinine alone.This calculation takes sex and race into account, if the information is provided. If the race is not provided, and the patient is -[place], multiply by 1.212. If sex is not provided, and the patient is female, multiply by 0.742. Results for patients <18 years of age have not been validated by the MDRD study and should be interpreted with caution. eGFR Result Interpretation:eGFR > or=60 is in the Normal RangeeGFR < 60 may mean kidney diseaseeGFR < 15 may mean kidney failure Ranges recommended by the National Kidney Foundation, http://nkdep.nih.gov eGFR Non-AA (test 48.96 mL/min/1.73 eGFR (estimated code=eGFR Non-AA) m2 Glomerular Filtration Rate) is an estimated value, calculated from the patient's serum creatinine using the MDRD equation. It is NOT the patient's actual GFR. The eGFR provides a more clinically useful measure of kidney disease than serum creatinine alone.This calculation takes sex and race into account, if the information is provided. If the race is not provided, and the patient is -[place], multiply by 1.212. If sex is not provided, and the patient is female, multiply by 0.742. Results for patients <18 years of age have not been validated by the MDRD study and should be interpreted with caution. eGFR Result Interpretation:eGFR > or=60 is in the Normal RangeeGFR < 60 may mean kidney diseaseeGFR < 15 may mean kidney failure Ranges recommended by the National Kidney Foundation, http://nkdep.nih.gov Alcohol [id number] 22:02:32 Test Item Value Reference Range Comments Ethanol Level (test 0.30 g/dL 0.00-0.01 Critical results called to RN, code=Ethanol Level) Cathy Hardy at 10/02/2018 22:01:54 CDT_ by RS_. Read back and verified? _yesIntoxicated 0.080 g/dL or more Ethanol Inst (test 302 code=Ethanol Inst) Magnesium [id number] 21:53:52 Test Item Value Reference Range Comments Magnesium Level (test code=Magnesium Level) 1.6 mg/dL 1.7-2.5 Phosphorus [id number] 21:53:52 Test Item Value Reference Range Comments Phosphorus Level (test code=Phosphorus Level) 4.40 mg/dL 2.70-4.50 Automated [id number] 21:32:53 Test Item Value Reference Range Comments Neutro Auto (test code=Neutro Auto) 57.7 % 36.0-70.0 Lymph Auto (test code=Lymph Auto) 28.4 % 12.0-44.0 [place] Auto (test code=[place] Auto) 10.8 % 0.0-11.0 Eos, Auto (test code=Eos, Auto) 1.4 % 0.0-7.0 Basophil Auto (test code=Basophil Auto) 0.7 % 0.0-2.0 Neutro Absolute (test code=Neutro Absolute) 5.5 x10 1.6-7.4 Lymph Absolute (test code=Lymph Absolute) 2.69 x10 .50-4.60 [place] Absolute (test code=[place] Absolute) 1.02 x10 .00-1.20 Eos Absolute (test code=Eos Absolute) 0.13 x10 0.00-0.74 Baso Absolute (test code=Baso Absolute) 0.07 x10 0.00-0.21 IG [id number] 21:32:53 Test Item Value Reference Range Comments IG (test code=IG) 1.0 % 0.0-5.0 IG Abs (test code=IG Abs) 0 x10 Complete Blood Count with [id number] 21:32:52 Test Item Value Reference Range Comments WBC (test code=WBC) 9.5 x10 4.4-10.5 RBC (test code=RBC) 3.85 x10 4.10-5.70 Hgb (test code=Hgb) 10.8 g/dL 13.4-17.4 Hct (test code=Hct) 33.5 % 38.7-52.0 MCV (test code=MCV) 87.00 fL 80.00-100.00 MCHC (test code=MCHC) 32.20 g/dL 32.00-37.50 RDW CV (test code=RDW CV) 16.8 % 11.5-14.5 MCH (test code=MCH) 28.1 pg 27.0-32.5 Platelets (test 246.0 x10 140.0-440.0 code=Platelets) MPV (test code=MPV) 10.4 fL Slide Review (test code=Slide Auto Auto Result created by Review) GL_SJM_SLIDE_REV_AUTO nRBC (test code=nRBC) 0 NRBC Abs (test code=NRBC Abs) 0.00 x10 IPF (test code=IPF) 0 % POC [id number] 20:55:21 Test Item Value Reference Range Comments pH Art (test code=pH Art) 7.28 7.35-7.45 pH Temp Andrei Art (test code=pH Temp Andrei Art) 7.28 pCO2 Art (test code=pCO2 Art) 45 mmHg 35-45 pCO2 Temp Andrei Art (test code=pCO2 Temp Andrei 45 mmHg Art) pO2 Art (test code=pO2 Art) 71 mmHg 80-100 pO2 Temp Andrei Art (test code=pO2 Temp Andrei Art) 71 mmHg ctHb Art (test code=ctHb Art) 11.0 g/dL 12.2-17.4 O2 Sat Art (test code=O2 Sat Art) 91.2 % 80.0-100.0 FO2Hb Art (test code=FO2Hb Art) 87.9 % 0.0-100.0 FCOHb Art (test code=FCOHb Art) 3.6 % 0.0-20.0 FMetHb Art (test code=FMetHb Art) 0.0 % 0.0-20.0 HCO3 Art (test code=HCO3 Art) 21.3 mmol/L 22.0-26.0 L Hct Art (test code=Hct Art) 34 % 34-52 Na Art (test code=Na Art) 124 mmol/L 135-145 K Art (test code=K Art) 4.8 mmol/L 3.5-4.5 iCa Art (test code=iCa Art) 1.15 mmol/L 1.00-1.50 Cl Art (test code=Cl Art) 86 mmol/L 95-105 Glu Art (test code=Glu Art) 892 mg/dL 75-115 L Base Excess Arterial (test code=Base Excess -5.3 Arterial) FiO2 Art (test code=FiO2 Art) 21 % Lactate Art (test code=Lactate Art) 3.1 mmol/L 0.5-2.2 Draw Site (test code=Draw Site) Radial. R COMPREHENSIVE METABOLIC [id number] 22:26:00 Test Item Value Reference Range Comments SODIUM (test code=NA) 137 MMOL/L 137-145 POTASSIUM (test code=K) 4.8 MMOL/L 3.5-5.1 CHLORIDE (test code=CL) 83 MMOL/L 98-107 CARBON DIOXIDE (test code=CO2) 28 MMOL/L 22-30 ANION GAP (test code=GAP) 31 MMOL/L 14-24 GLUCOSE (test code=GLU) 613 MG/DL 74-106 CALLED TO TRUDY A & READBACK ON 08/25/18 AT 2225 Elizabeth Madrigal BLOOD UREA NITROGEN (test 14 MG/DL 9-20 code=BUN) GLOMERULAR FILTRATION RATE > 60 Reporting units: (test code=GFR) ml/min/1.73 m2 (Modified MDRD Formula)Reference Range: > or=60 ml/min/1.73 m2 CREATININE (test code=CREAT) 0.90 MG/DL 0.66-1.25 TOTAL PROTEIN (test code=PROT) 9.6 G/DL 6.2-7.6 ALBUMIN (test code=ALB) 5.2 G/DL 3.5-5.0 CALCIUM (test code=CA) 9.5 MG/DL 8.4-10.2 BILIRUBIN TOTAL (test 0.8 MG/DL 0.2-1.3 code=BILT) SGOT/AST (test code=AST) 120 UNITS/L 17-59 SGPT/ALT (test code=ALT) 92 UNITS/L 21-72 ALKALINE PHOSPHATASE (test 255 UNITS/L 38-126 code=ALKP) [id number] 22:26:00 Test Item Value Reference Range Comments ALCOHOL (test code=ALC) 282.0 MG/DL <10 CALLED TO TRUDY Ortiz & READBACK ON 08/25/18 AT 2226 Elizabeth Madrigal CBC W/O [id number] 22:00:00 Test Item Value Reference Range Comments WHITE BLOOD CELL (test code=WBC) 8.6 K/MM3 3.8-9.8 RED BLOOD CELL (test code=RBC) 4.73 M/MM3 3.95-5.67 HEMOGLOBIN (test code=HGB) 13.0 G/DL 12.4-16.7 HEMATOCRIT (test code=HCT) 39.0 % 35.9-49.5 MEAN CELL VOLUME (test code=MCV) 83 fL 81.7-96.1 MEAN CELL HGB (test code=MCH) 27.5 pg 27.6-33.2 MEAN CELL HGB CONCETRATION (test code=MCHC) 33.3 % 32.9-35.5 RED CELL DISTRIBUTION WIDTH (test code=RDW) 14.9 % 12.1-15.2 PLATELET COUNT (test code=PLT) 194 K/MM3 129-368 NEUTROPHIL # (test code=NT#) 5.67 K/mm3 2.0-7.6 IMMATURE GRANULOCYTE # (test code=IG#) 0.05 x10 3/uL 0-0.03 LYMPHOCYTE # (test code=LY#) 2.40 K/mm3 1.0-3.8 MONOCYTE # (test code=MO#) 0.41 K/mm3 0.1-0.8 EOSINOPHIL # (test code=EO#) 0.02 K/mm3 0.0-0.2 BASOPHIL # (test code=BA#) 0.06 K/mm3 0.0-0.2 NUCLEATED RBC # (test code=NRBC#) 0.00 K/mm3 0.0-0.1 - XR CHEST [id number] 21:09:00 Patient Name: PRIYANKA EVANGELISTA Unit No: [id number] EXAMS: CPT CODE: [id number] XR CHEST 1V [id number] Location of dictation: B2 Portable chest one view. HISTORY: Hyperglycemia, COPD COMMENT: Compared to 05/15/2016. The heart and mediastinum are normal. The lungs are clear. Visualized soft tissues and skeletal structures are unremarkable. 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 There has been no significant changes. IMPRESSION: No active disease in the chest. at 2108 Reported and signed by: Nohelia Keen CC: Aamir Thomason Technologist: Anh Beard (RT) Transcrpt Date/Tm/Trnsp: 08/25/2018 (2108) [facility] Orig Print D/T: S: 08/25/2018 (2112) [facility] NAME: PRIYANKA EVANGELISTA [id number] PHYS: [place] [address] : 1965 AGE: 53 SEX: M LOC: [facility]ERS PHONE #: [phone] EXAM DATE: 08/25/2018 STATUS: PRE ER FAX #: [phone] RADIOLOGY NO: PAGE 1 Signed ReportGLUCOSE BEDSIDE [id number] 20:44:00 Test Item Value Reference Range Comments GLUCOSE BEDSIDE TESTING (test > 600 MG/DL 60-99 Notified Nurse~ code=GLUBED) XR Ribs w/ PA Chest [id number] 01:15:17Patient: PRIYANKA EVANGELISTA Date/Time07/20/2018 00: 30 CDTReason for ExamInjuryReportLOCATION: [id number]: 53-year-old male who presents with rib pain.COMMENT:A frontal radiograph of the chest was obtained with frontal and bilateral oblique projections of both right and left rib cage.The chest examination demonstrates well-expanded and clear lungs.The cardiac silhouette, nata, and mediastinum unremarkable. The skeleton is radiographically intact.An orthopedic replacement is seen in the left shoulder.The rib cage images demonstrate no acute or destructive bony lesions in either the right or left rib cage.IMPRESSION:Unremarkable radiographic examination of the chest, and right and left rib cage. Final Dictated by: MD Salguero RobertLDchristen DT/TM: 07/20/2018 1:13 amSigned by: MD Salguero Robert LSigned (Electronic Signature): 07/20/2018 1:15 amGLUCOSE BEDSIDE [id number] 16:12:00 Test Item Value Reference Range Comments GLUCOSE BEDSIDE TESTING (test code=GLUBED) 271 MG/DL 60-99 [id number] 14:56:00 Test Item Value Reference Range Comments ALCOHOL (test code=ALC) 296.0 MG/DL <10 CALLED TO FANTASMA& READBACK ON 06/10/18 AT 1456 BY Romina Valdes HEPATIC FUNCTION [id number] 14:54:00 Test Item Value Reference Range Comments TOTAL PROTEIN (test code=PROT) 8.9 G/DL 6.2-7.6 ALBUMIN (test code=ALB) 5.2 G/DL 3.5-5.0 BILIRUBIN TOTAL (test code=BILT) 0.7 MG/DL 0.2-1.3 BILIRUBIN DIRECT (test code=BILD) 0.0 MG/DL 0.0-0.3 SGOT/AST (test code=AST) 48 UNITS/L 17-59 SGPT/ALT (test code=ALT) 39 UNITS/L 21-72 ALKALINE PHOSPHATASE (test code=ALKP) 317 UNITS/L 38-126 DRUGS OF ABUSE SCREEN [id number] 14:16:00 Test Item Value Reference Range Comments UR COCAINE (test code=COCAU) NEGATIVE NEGATIVE Cut off Value: 300 ng/mL UR CANNABINOIDS (THC) (test NEGATIVE NEGATIVE Cut off Value: 50 ng/mL code=CANU) UR AMPHETAMINE (test code=AMPHU) NEGATIVE NEGATIVE Cut off Value: 1000 ng/mL UR BARBITURATE QUAL (test NEGATIVE NEGATIVE Cut off Value: 200 ng/mL code=BARBQLU) UR BENZODIAZEPINE (test NEGATIVE NEGATIVE Cut off Value: 200 ng/mL code=BENZU) UR OPIATES QUAL (test NEGATIVE NEGATIVE Cut off Value: 300 ng/mL code=OPIAQLU) UR PHENCYCLIDINE (PCP) (test NEGATIVE NEGATIVE Cut off Value: 25 ng/mL code=PHENCU) BASIC METABOLIC [id number] 14:05:00 Test Item Value Reference Range Comments SODIUM (test code=NA) 134 MMOL/L 137-145 POTASSIUM (test code=K) 4.8 MMOL/L 3.5-5.1 CHLORIDE (test code=CL) 93 MMOL/L 98-107 CARBON DIOXIDE (test code=CO2) 24 MMOL/L 22-30 ANION GAP (test code=GAP) 22 MMOL/L 14-24 GLUCOSE (test code=GLU) 426 MG/DL 74-106 CALLED TO Yohan BROWNE& READBACK ON 06/10/18 AT 1405 BY Tereza Love BLOOD UREA NITROGEN (test 15 MG/DL 9-20 code=BUN) GLOMERULAR FILTRATION RATE > 60 Reporting units: ml/min/1.73 (test code=GFR) m2 (Modified MDRD Formula)Reference Range: > or=60 ml/min/1.73 m2 CREATININE (test code=CREAT) 0.70 MG/DL 0.66-1.25 CALCIUM (test code=CA) 9.5 MG/DL 8.4-10.2 URINALYSIS [id number] 14:00:00 Test Item Value Reference Range Comments UA COLOR (test code=COLU) YELLOW YELLOW UA APPEARANCE (test code=APPU) CLEAR CLEAR UA GLUCOSE DIPSTICK (test 1000 MG/DL NORMAL code=DGLUU) UA BILIRUBIN DIPSTICK (test NEGATIVE MG/DL NEGATIVE code=BILU) UA KETONE DIPSTICK (test NEGATIVE MG/DL NEGATIVE code=KETU) UA SPECIFIC GRAVITY (test 1.005 1.003-1.030 code=SGU) UA BLOOD DIPSTICK (test code=HAILEE) NEGATIVE Ben/mm3 NEGATIVE UA PH DIPSTICK (test code=MARLYN) 5.0 5.0-9.0 UA PROTEIN DIPSTICK (test NEGATIVE MG/DL NEGATIVE code=PROU) UA UROBILINIOGEN DIPSTICK (test NORMAL MG/DL NORMAL code=URO) UA NITRITE DIPSTICK (test NEGATIVE NEGATIVE code=LILA) UA LEUKOCYTE ESTERASE DIPSTICK NEGATIVE /mm3 NEGATIVE (test code=LEUU) UA CULTURE NEEDED? (test NEGATIVE, NO CULTURE Culture Chk code=UACULT) Criteria URINALYSIS [id number] 13:59:00 Test Item Value Reference Range Comments UA COLOR (test code=COLU) YELLOW YELLOW UA APPEARANCE (test code=APPU) CLEAR CLEAR UA GLUCOSE DIPSTICK (test code=DGLUU) 1000 MG/DL NORMAL UA BILIRUBIN DIPSTICK (test code=BILU) NEGATIVE MG/DL NEGATIVE UA KETONE DIPSTICK (test code=KETU) NEGATIVE MG/DL NEGATIVE UA SPECIFIC GRAVITY (test code=SGU) 1.005 1.003-1.030 UA BLOOD DIPSTICK (test code=HAILEE) NEGATIVE Ben/mm3 NEGATIVE UA PH DIPSTICK (test code=MARLYN) 5.0 5.0-9.0 UA PROTEIN DIPSTICK (test code=PROU) NEGATIVE MG/DL NEGATIVE UA UROBILINIOGEN DIPSTICK (test code=URO) NORMAL MG/DL NORMAL UA NITRITE DIPSTICK (test code=LILA) NEGATIVE NEGATIVE UA LEUKOCYTE ESTERASE DIPSTICK (test NEGATIVE /mm3 NEGATIVE code=LEUU) UA CULTURE NEEDED? (test code=UACULT) Criteria Culture Chk PROTHROMBIN [id number] 13:41:00 Test Item Value Reference Range Comments PROTHROMBIN TIME PATIENT (test 11.1 SECONDS 9.6-11.6 code=PTP) INTERNATIONAL NORMAL RATIO 1.1 0.8-1.1 The INR is to be used only (test code=INR) for monitoring oral anticoagulanttherapy. INDICATION INR VALUE 1. Prophylaxis, deep venous thrombosis, including high risk surgery. 2.0 - 3.0 2. Prophylaxis, deep venous thrombosis, hip surgery, treatment for deep venous thrombosis or pulmonary prevention of systemic embolism in patients with valvular heart disease, atrial fibrillation, tissue heart valve, or acute myocardial infarction. 2.0 - 3.0 3. Mechanical prosthesis heart valves, recurrent systemic embolism. 3.0 - 4.5 CBC W/AUTO [id number] 13:30:00 Test Item Value Reference Range Comments WHITE BLOOD CELL (test code=WBC) 8.6 K/MM3 3.8-9.8 RED BLOOD CELL (test code=RBC) 3.33 M/MM3 3.95-5.67 HEMOGLOBIN (test code=HGB) 10.2 G/DL 12.4-16.7 HEMATOCRIT (test code=HCT) 29.9 % 35.9-49.5 MEAN CELL VOLUME (test code=MCV) 90 fL 81.7-96.1 MEAN CELL HGB (test code=MCH) 30.6 pg 27.6-33.2 MEAN CELL HGB CONCETRATION (test code=MCHC) 34.1 % 32.9-35.5 RED CELL DISTRIBUTION WIDTH (test code=RDW) 15.0 % 12.1-15.2 PLATELET COUNT (test code=PLT) 277 K/MM3 129-368 MEAN PLATELET VOLUME (test code=MPV) 9.0 fl 7.4-10.4 NEUTROPHIL % (test code=NT%) 65.2 % 43-75 IMMATURE GRANULOCYTE % (test code=IG%) 0.8 % 0.0-2.0 LYMPHOCYTE % (test code=LY%) 25.1 % 14-44 MONOCYTE % (test code=MO%) 7.8 % 4-13 EOSINOPHIL % (test code=EO%) 0.1 % 0-6 BASOPHIL % (test code=BA%) 1.0 % 0-2 NUCLEATED RBC % (test code=NRBC%) 0.0 % 0-1.0 NEUTROPHIL # (test code=NT#) 5.62 K/mm3 2.0-7.6 IMMATURE GRANULOCYTE # (test code=IG#) 0.07 x10 3/uL 0-0.03 LYMPHOCYTE # (test code=LY#) 2.16 K/mm3 1.0-3.8 MONOCYTE # (test code=MO#) 0.67 K/mm3 0.1-0.8 EOSINOPHIL # (test code=EO#) 0.01 K/mm3 0.0-0.2 BASOPHIL # (test code=BA#) 0.09 K/mm3 0.0-0.2 NUCLEATED RBC # (test code=NRBC#) 0.00 K/mm3 0.0-0.1 GLUCOSE BEDSIDE [id number] 13:01:00 Test Item Value Reference Range Comments GLUCOSE BEDSIDE TESTING (test code=GLUBED) 427 MG/DL 60-99 Notified Nurse~ CHEMISTRY 8 [id number] 13:00:00 Test Item Value Reference Range Comments IONIZED CALCIUM (test MMOL/L 1.12-1.24 code=CAIABG) ISTAT-TCO2 VENOUS (test MMOL/L 23-32 code=TCO2VP) ISTAT-SODIUM (test code=NAP) MMOL/L 137-144 ISTAT-POTASSIUM (test code=KP) MMOL/L 3.1-4.8 ISTAT-CHLORIDE (test code=CLP) MMOL/L 97-108 ISTAT-GLUCOSE (test code=GLUP) MG/DL 60-99 ISTAT-BUN (test code=BUNP) MG/DL 9-21 BEDSIDE CREATININE (test MG/DL 0.6-1.4 code=CREATBED) GLOMERULAR FILTRATION RATE POC 70 56-130 Reporting units: ml/min/1.73 (test code=GFRBED) m2 (Modified MDRD Formula)Reference Range: > or=60 ml/min/1.73 m2 CHEMISTRY 8 [id number] 13:00:00 Test Item Value Reference Range Comments IONIZED CALCIUM (test 1.05 MMOL/L 1.12-1.24 code=CAIABG) ISTAT-TCO2 VENOUS (test 23 MMOL/L 23-32 code=TCO2VP) ISTAT-SODIUM (test code=NAP) 132 MMOL/L 137-144 ISTAT-POTASSIUM (test 4.6 MMOL/L 3.1-4.8 code=KP) ISTAT-CHLORIDE (test 90 MMOL/L 97-108 code=CLP) ISTAT-GLUCOSE (test 426 MG/DL 60-99 code=GLUP) ISTAT-BUN (test code=BUNP) 13 MG/DL 9-21 BEDSIDE CREATININE (test 1.1 MG/DL 0.6-1.4 code=CREATBED) GLOMERULAR FILTRATION RATE 70 56-130 Reporting units: ml/min/1.73 POC (test code=GFRBED) m2 (Modified MDRD Formula)Reference Range: > or=60 ml/min/1.73 m2 BASIC METABOLIC [id number] 11:41:00 Test Item Value Reference Range Comments SODIUM (test code=NA) 142 MMOL/L 137-145 POTASSIUM (test code=K) 4.0 MMOL/L 3.5-5.1 CHLORIDE (test code=CL) 109 MMOL/L 98-107 CARBON DIOXIDE (test code=CO2) 20 MMOL/L 22-30 GLUCOSE (test code=GLU) 294 MG/DL 74-106 BLOOD UREA NITROGEN (test 13 MG/DL 9-20 code=BUN) GLOMERULAR FILTRATION RATE > 60 Reporting units: ml/min/1.73 (test code=GFR) m2 (Modified MDRD Formula)Reference Range: > or=60 ml/min/1.73 m2 CREATININE (test code=CREAT) 0.90 MG/DL 0.66-1.25 CALCIUM (test code=CA) 8.2 MG/DL 8.4-10.2 CBC W/AUTO [id number] 11:37:00 Test Item Value Reference Range Comments WHITE BLOOD CELL (test code=WBC) 7.2 K/MM3 3.8-9.8 RED BLOOD CELL (test code=RBC) 3.15 M/MM3 3.95-5.67 HEMOGLOBIN (test code=HGB) 9.6 G/DL 12.4-16.7 HEMATOCRIT (test code=HCT) 28.9 % 35.9-49.5 MEAN CELL VOLUME (test code=MCV) 92 fL 81.7-96.1 MEAN CELL HGB (test code=MCH) 30.5 pg 27.6-33.2 MEAN CELL HGB CONCETRATION (test code=MCHC) 33.2 % 32.9-35.5 RED CELL DISTRIBUTION WIDTH (test code=RDW) 14.6 % 12.1-15.2 PLATELET COUNT (test code=PLT) 278 K/MM3 129-368 MEAN PLATELET VOLUME (test code=MPV) 9.3 fl 7.4-10.4 NEUTROPHIL % (test code=NT%) 59.6 % 43-75 IMMATURE GRANULOCYTE % (test code=IG%) 1.4 % 0.0-2.0 LYMPHOCYTE % (test code=LY%) 29.6 % 14-44 MONOCYTE % (test code=MO%) 8.0 % 4-13 EOSINOPHIL % (test code=EO%) 0.4 % 0-6 BASOPHIL % (test code=BA%) 1.0 % 0-2 NUCLEATED RBC % (test code=NRBC%) 0.0 % 0-1.0 NEUTROPHIL # (test code=NT#) 4.30 K/mm3 2.0-7.6 IMMATURE GRANULOCYTE # (test code=IG#) 0.10 x10 3/uL 0-0.03 LYMPHOCYTE # (test code=LY#) 2.14 K/mm3 1.0-3.8 MONOCYTE # (test code=MO#) 0.58 K/mm3 0.1-0.8 EOSINOPHIL # (test code=EO#) 0.03 K/mm3 0.0-0.2 BASOPHIL # (test code=BA#) 0.07 K/mm3 0.0-0.2 NUCLEATED RBC # (test code=NRBC#) 0.00 K/mm3 0.0-0.1 [id number] 11:00:00 Test Item Value Reference Range Comments ALCOHOL (test code=ALC) 323.0 MG/DL <10 CALLED TO BERTHA.T& READBACK ON 06/08/18 AT 1100 BY Romina Valdes - XR HIP W/PEL UNI 2+V [id number] 09:57:00 Patient Name: PRIYANKA EVANGELISTA Unit No: [id number] EXAMS: CPT CODE: [id number] XR HIP W/PEL UNI 2+[place] [address] Right hip History: pain Comparison: May 31, 2018and May 30, 2018 Location: R16 Two views of the right hip are submitted. IMPRESSION: Orthopedic hardware is again identified traversing a previously identified intertrochanteric fracture of the proximal right femur. No new fracture and no dislocation is identified. The joint space appears unremarkable. at 0957 Reported and signed by: Nicholas Cotter MD CC: Evan Alfonso MD Technologist: Carter Chatman, RT(R) Transcrpt Date/Tm/Trnsp: 06/08 (0957) [email or web address] OrigPrint D/T: S: 06/08/2018 (1001) [facility] NAME: PRIYANKA EVANGELISTA [id number] PHYS: [place] [address] : 1965 AGE : 53 SEX: M LOC: UNK PHONE #: [phone] EXAM DATE: 06/08/2018 STATUS: DEP ER FAX #: [phone] RADIOLOGY NO: PAGE 1 Signed Report- XR HIP W/PEL UNI 2+V [id number] 09:57:00 Patient Name: PRIYANKA EVANGELISTA Unit No: [id number] EXAMS: CPT CODE: [id number] XR HIP W/PEL UNI 2+[place] [address] Right hip History: pain Comparison: May 31, 2018and May 30, 2018 Location: R16 Two views of the right hip are submitted. IMPRESSION: Orthopedic hardware is again identified traversing a previously identified intertrochanteric fracture of the proximal right femur. No new fracture and no dislocation is identified. The joint space appears unremarkable. at 0957 Reported and signed by: Nicholas Cotter MD CC: Evan Alfonso MD Technologist: Carter Chatman, RT(R) Transcrpt Date/Tm/Trnsp: 06/08/2018 (0957) t.[email or web address].PMT OrigPrint D/T: S: 02/2019 (1001) [facility] NAME: PRIYANKA EVANGELISTA [id number] PHYS : [place] [address] : 02/1966 AGE: 53 SEX: M LOC: Z.ERS PHONE #: [phone] EXAM DATE: 06/08/2018 STATUS: REG ER FAX #: [phone] RADIOLOGY NO: PAGE 1 Signed ReportGLUCOSE BEDSIDE [id number] 12:55:00 Test Item Value Reference Range Comments GLUCOSE BEDSIDE TESTING (test code=GLUBED) 160 MG/DL 60-99 GLUCOSE BEDSIDE [id number] 10:49:00 Test Item Value Reference Range Comments GLUCOSE BEDSIDE TESTING (test code=GLUBED) 186 MG/DL 60-99 BASIC METABOLIC [id number] 06:15:00 Test Item Value Reference Range Comments SODIUM (test code=NA) 124 MMOL/L 137-145 POTASSIUM (test code=K) 4.3 MMOL/L 3.5-5.1 CHLORIDE (test code=CL) 89 MMOL/L 98-107 CARBON DIOXIDE (test code=CO2) 25 MMOL/L 22-30 GLUCOSE (test code=GLU) 184 MG/DL 74-106 BLOOD UREA NITROGEN (test 14 MG/DL 9-20 code=BUN) GLOMERULAR FILTRATION RATE > 60 Reporting units: ml/min/1.73 (test code=GFR) m2 (Modified MDRD Formula)Reference Range: > or=60 ml/min/1.73 m2 CREATININE (test code=CREAT) 0.60 MG/DL 0.66-1.25 CALCIUM (test code=CA) 8.8 MG/DL 8.4-10.2 CBC W/AUTO [id number] 05:54:00 Test Item Value Reference Range Comments WHITE BLOOD CELL (test code=WBC) 4.9 K/MM3 3.8-9.8 RED BLOOD CELL (test code=RBC) 3.00 M/MM3 3.95-5.67 HEMOGLOBIN (test code=HGB) 9.2 G/DL 12.4-16.7 HEMATOCRIT (test code=HCT) 27.2 % 35.9-49.5 MEAN CELL VOLUME (test code=MCV) 91 fL 81.7-96.1 MEAN CELL HGB (test code=MCH) 30.7 pg 27.6-33.2 MEAN CELL HGB CONCETRATION (test code=MCHC) 33.8 % 32.9-35.5 RED CELL DISTRIBUTION WIDTH (test code=RDW) 14.2 % 12.1-15.2 PLATELET COUNT (test code=PLT) 125 K/MM3 129-368 MEAN PLATELET VOLUME (test code=MPV) 9.6 fl 7.4-10.4 NEUTROPHIL % (test code=NT%) 65.6 % 43-75 IMMATURE GRANULOCYTE % (test code=IG%) 0.6 % 0.0-2.0 LYMPHOCYTE % (test code=LY%) 21.1 % 14-44 MONOCYTE % (test code=MO%) 11.3 % 4-13 EOSINOPHIL % (test code=EO%) 1.0 % 0-6 BASOPHIL % (test code=BA%) 0.4 % 0-2 NUCLEATED RBC % (test code=NRBC%) 0.0 % 0-1.0 NEUTROPHIL # (test code=NT#) 3.19 K/mm3 2.0-7.6 IMMATURE GRANULOCYTE # (test code=IG#) 0.03 x10 3/uL 0-0.03 LYMPHOCYTE # (test code=LY#) 1.03 K/mm3 1.0-3.8 MONOCYTE # (test code=MO#) 0.55 K/mm3 0.1-0.8 EOSINOPHIL # (test code=EO#) 0.05 K/mm3 0.0-0.2 BASOPHIL # (test code=BA#) 0.02 K/mm3 0.0-0.2 NUCLEATED RBC # (test code=NRBC#) 0.00 K/mm3 0.0-0.1 GLUCOSE BEDSIDE [id number] 21:08:00 Test Item Value Reference Range Comments GLUCOSE BEDSIDE TESTING (test code=GLUBED) 198 MG/DL 60-99 GLUCOSE BEDSIDE [id number] 18:21:00 Test Item Value Reference Range Comments GLUCOSE BEDSIDE TESTING (test code=GLUBED) 217 MG/DL 60-99 [id number] 13:23:00 Test Item Value Reference Range Comments MAGNESIUM (test code=MAG) 1.6 MG/DL 1.6-2.3 GLUCOSE BEDSIDE [id number] 12:58:00 Test Item Value Reference Range Comments GLUCOSE BEDSIDE TESTING (test code=GLUBED) 334 MG/DL 60-99 GLUCOSE BEDSIDE [id number] 12:40:00 Test Item Value Reference Range Comments GLUCOSE BEDSIDE TESTING (test code=GLUBED) 193 MG/DL 60-99 GLUCOSE BEDSIDE [id number] 10:59:00 Test Item Value Reference Range Comments GLUCOSE BEDSIDE TESTING (test code=GLUBED) 173 MG/DL 60-99 BASIC METABOLIC [id number] 06:55:00 Test Item Value Reference Range Comments SODIUM (test code=NA) 122 MMOL/L 137-145 POTASSIUM (test code=K) 4.3 MMOL/L 3.5-5.1 CHLORIDE (test code=CL) 86 MMOL/L 98-107 CARBON DIOXIDE (test code=CO2) 27 MMOL/L 22-30 ANION GAP (test code=GAP) 13 MMOL/L 14-24 GLUCOSE (test code=GLU) 198 MG/DL 74-106 BLOOD UREA NITROGEN (test 13 MG/DL 9-20 code=BUN) GLOMERULAR FILTRATION RATE > 60 Reporting units: ml/min/1.73 (test code=GFR) m2 (Modified MDRD Formula)Reference Range: > or=60 ml/min/1.73 m2 CREATININE (test code=CREAT) 0.70 MG/DL 0.66-1.25 CALCIUM (test code=CA) 8.8 MG/DL 8.4-10.2 GLUCOSE BEDSIDE [id number] 06:37:00 Test Item Value Reference Range Comments GLUCOSE BEDSIDE TESTING (test code=GLUBED) 220 MG/DL 60-99 CBC W/AUTO [id number] 06:17:00 Test Item Value Reference Range Comments WHITE BLOOD CELL (test code=WBC) 6.0 K/MM3 3.8-9.8 RED BLOOD CELL (test code=RBC) 3.07 M/MM3 3.95-5.67 HEMOGLOBIN (test code=HGB) 9.4 G/DL 12.4-16.7 HEMATOCRIT (test code=HCT) 27.9 % 35.9-49.5 MEAN CELL VOLUME (test code=MCV) 91 fL 81.7-96.1 MEAN CELL HGB (test code=MCH) 30.6 pg 27.6-33.2 MEAN CELL HGB CONCETRATION (test code=MCHC) 33.7 % 32.9-35.5 RED CELL DISTRIBUTION WIDTH (test code=RDW) 14.2 % 12.1-15.2 PLATELET COUNT (test code=PLT) 134 K/MM3 129-368 MEAN PLATELET VOLUME (test code=MPV) 9.9 fl 7.4-10.4 NEUTROPHIL % (test code=NT%) 69.4 % 43-75 IMMATURE GRANULOCYTE % (test code=IG%) 0.7 % 0.0-2.0 LYMPHOCYTE % (test code=LY%) 18.6 % 14-44 MONOCYTE % (test code=MO%) 10.1 % 4-13 EOSINOPHIL % (test code=EO%) 0.7 % 0-6 BASOPHIL % (test code=BA%) 0.5 % 0-2 NUCLEATED RBC % (test code=NRBC%) 0.0 % 0-1.0 NEUTROPHIL # (test code=NT#) 4.15 K/mm3 2.0-7.6 IMMATURE GRANULOCYTE # (test code=IG#) 0.04 x10 3/uL 0-0.03 LYMPHOCYTE # (test code=LY#) 1.11 K/mm3 1.0-3.8 MONOCYTE # (test code=MO#) 0.60 K/mm3 0.1-0.8 EOSINOPHIL # (test code=EO#) 0.04 K/mm3 0.0-0.2 BASOPHIL # (test code=BA#) 0.03 K/mm3 0.0-0.2 NUCLEATED RBC # (test code=NRBC#) 0.00 K/mm3 0.0-0.1 [id number] 21:42:00 Test Item Value Reference Range Comments MAGNESIUM (test code=MAG) 1.9 MG/DL 1.6-2.3 GLUCOSE BEDSIDE [id number] 21:08:00 Test Item Value Reference Range Comments GLUCOSE BEDSIDE TESTING (test code=GLUBED) 101 MG/DL 60-99 GLUCOSE BEDSIDE [id number] 15:54:00 Test Item Value Reference Range Comments GLUCOSE BEDSIDE TESTING (test code=GLUBED) 261 MG/DL 60-99 Notified Nurse~ GLUCOSE BEDSIDE [id number] 11:18:00 Test Item Value Reference Range Comments GLUCOSE BEDSIDE TESTING (test code=GLUBED) 321 MG/DL 60-99 Notified Nurse~ BASIC METABOLIC [id number] 08:23:00 Test Item Value Reference Range Comments SODIUM (test code=NA) 121 MMOL/L 137-145 POTASSIUM (test code=K) 5.0 MMOL/L 3.5-5.1 CHLORIDE (test code=CL) 84 MMOL/L 98-107 CARBON DIOXIDE (test code=CO2) 27 MMOL/L 22-30 ANION GAP (test code=GAP) 15 MMOL/L 14-24 GLUCOSE (test code=GLU) 344 MG/DL 74-106 CALLED TO [facility].Damaso & READBACK ON 06/01/18 AT 0822 BY Romina Valdes BLOOD UREA NITROGEN (test 14 MG/DL 9-20 code=BUN) GLOMERULAR FILTRATION RATE > 60 Reporting units: ml/min/1.73 (test code=GFR) m2 (Modified MDRD Formula)Reference Range: > or=60 ml/min/1.73 m2 CREATININE (test code=CREAT) 0.80 MG/DL 0.66-1.25 CALCIUM (test code=CA) 8.9 MG/DL 8.4-10.2 CBC W/AUTO [id number] 07:18:00 Test Item Value Reference Range Comments WHITE BLOOD CELL (test code=WBC) 6.5 K/MM3 3.8-9.8 RED BLOOD CELL (test code=RBC) 3.37 M/MM3 3.95-5.67 HEMOGLOBIN (test code=HGB) 10.3 G/DL 12.4-16.7 HEMATOCRIT (test code=HCT) 30.4 % 35.9-49.5 MEAN CELL VOLUME (test code=MCV) 90 fL 81.7-96.1 MEAN CELL HGB (test code=MCH) 30.6 pg 27.6-33.2 MEAN CELL HGB CONCETRATION (test code=MCHC) 33.9 % 32.9-35.5 RED CELL DISTRIBUTION WIDTH (test code=RDW) 14.1 % 12.1-15.2 PLATELET COUNT (test code=PLT) 155 K/MM3 129-368 MEAN PLATELET VOLUME (test code=MPV) 9.6 fl 7.4-10.4 NEUTROPHIL % (test code=NT%) 70.8 % 43-75 IMMATURE GRANULOCYTE % (test code=IG%) 0.3 % 0.0-2.0 LYMPHOCYTE % (test code=LY%) 19.6 % 14-44 MONOCYTE % (test code=MO%) 8.6 % 4-13 EOSINOPHIL % (test code=EO%) 0.2 % 0-6 BASOPHIL % (test code=BA%) 0.5 % 0-2 NUCLEATED RBC % (test code=NRBC%) 0.0 % 0-1.0 NEUTROPHIL # (test code=NT#) 4.59 K/mm3 2.0-7.6 IMMATURE GRANULOCYTE # (test code=IG#) 0.02 x10 3/uL 0-0.03 LYMPHOCYTE # (test code=LY#) 1.27 K/mm3 1.0-3.8 MONOCYTE # (test code=MO#) 0.56 K/mm3 0.1-0.8 EOSINOPHIL # (test code=EO#) 0.01 K/mm3 0.0-0.2 BASOPHIL # (test code=BA#) 0.03 K/mm3 0.0-0.2 NUCLEATED RBC # (test code=NRBC#) 0.00 K/mm3 0.0-0.1 GLUCOSE BEDSIDE [id number] 06:36:00 Test Item Value Reference Range Comments GLUCOSE BEDSIDE TESTING (test code=GLUBED) 296 MG/DL 60-99 [id number] 22:45:00 Test Item Value Reference Range Comments MAGNESIUM (test code=MAG) 1.2 MG/DL 1.6-2.3 GLUCOSE BEDSIDE [id number] 19:56:00 Test Item Value Reference Range Comments GLUCOSE BEDSIDE TESTING (test code=GLUBED) 316 MG/DL 60-99 Notified Nurse~ - XR HIP W/PEL UNI 2+V [id number] 13:13:00 Patient Name: PRIYANKA EVANGELISTA Unit No: [id number] EXAMS: CPT CODE: [id number] XR HIP W/PEL UNI 2+[place] [id number] Right hip History: RIGHT FEMUR FRACTURE Comparison: May 30, 2018 Location: R16 13 views of the right hip from the C-arm are submitted. IMPRESSION: The images demonstrate placement of orthopedic hardware traversing a previously identified fracture of the proximal right femur. There is approximation of fracture fragments. at 1313 Reported and signed by: Nicholas Cotter MD CC: Clarissa Reilly DO Technologist: RT Shalom(R) Transcrpt Date/Tm/Trnsp: 05/31/2018 (1313) t.SDR.PMT Orig Print D/T: S: 05/31/2018 (1316) [facility] NAME: PRIYANKA EVANGELISTA [address] [place] [address] PHYS: [place] [address] : 1965 AGE: 53 SEX: M LOC: UNK PHONE #: [phone] EXAM DATE: 05/31/2018 STATUS: DIS IN FAX #: [phone] RADIOLOGY NO: PAGE 1 Signed Report- XR HIP W/ PEL UNI 2+V [id number] 13:13:00 Patient Name: PRIYANKA EVANGELISTA Unit No: [id number] EXAMS: CPT CODE: [id number] XR HIP W/PEL UNI 2+[place] [address] Right hip History: RIGHT FEMUR FRACTURE Comparison: May 30, 2018 Location: R16 13 views of the right hip from the C-arm are submitted. IMPRESSION: The images demonstrate placement of orthopedic hardware traversing a previously identified fracture of the proximal right femur. There is approximation of fracture fragments. at 1313 Reported and signed by: Nicholas Cotter MD CC: Clarissa Reilly DO Technologist: Rohan Machado RT(R) Transcrpt Date/Tm/Trnsp: 05/31/2018 (1313) t.ANGLER.PMT Orig Print D/T: S: 05/31/2018 (5936) [facility] NAME: PRIYANKA EVANGELISTA [address] [address] PHYS: [place] [address] : 1965 AGE: 53 SEX: M LOC: Z.534 A PHONE #: [phone] EXAM DATE: 05/31/2018 STATUS: ADM IN FAX #: [phone] RADIOLOGY NO: PAGE 1 Signed [id number] 12:56:00 Test Item Value Reference Range Comments HEMOGLOBIN (test code=HGB) 11.1 G/DL 12.4-16.7 Specimen comments: Patient in PACUComments to [employer] Trolley Driver: Patient in [id number] 12:56:00 Test Item Value Reference Range Comments HEMATOCRIT (test code=HCT) 34.1 % 35.9-49.5 Specimen comments: Patient in PACUComments to [employer] Trolley Driver: Patient in PACUGLUCOSE BEDSIDE [id number] 09:21:00 Test Item Value Reference Range Comments GLUCOSE BEDSIDE TESTING (test code=GLUBED) 191 MG/DL 60-99 LIPID PROFILE (CORONARY RISK)2018-05-31 07:50:00 Test Item Value Reference Range Comments TRIGLYCERIDES (test code=TRIG) 93 MG/DL TRIGLYCERIDES REFERENCE RANGE:Normal: <150 mg/dLBorderline High: 150-199 mg/dLHigh: 200-499 mg/dLVery High: >=500 mg/dL CHOLESTEROL (test code=CHOL) 191 MG/DL <200 HDL CHOLESTEROL (test 58 MG/DL 40-59 code=HDL) LIPOPROTEIN LDL (test 136 MG/DL 0-99 code=LDL) OPTIMAL.........<100 mg/dLNEAR OPTIMAL/ABOVE OPTIMAL.........100-129 mg/dL BORDERLINE HIGH.........130-159 mg/dL HIGH.........160-189 mg/dL VERY HIGH.........>/=190 mg/dL [id number] 07:50:00 Test Item Value Reference Range Comments MAGNESIUM (test code=MAG) 1.3 MG/DL 1.6-2.3 THYROID STIMULATING [id number] 07:50:00 Test Item Value Reference Range Comments THYROID STIMULATING HORMONE 3.190 MIU/L 0.465-4.68 Please be aware that bias (test code=TSH) results for TSH may occur forpatient who are taking Biotin supplements. LIPID PROFILE (CORONARY RISK)2018-05-31 07:30:00 Test Item Value Reference Range Comments TRIGLYCERIDES (test code=TRIG) 93 MG/DL TRIGLYCERIDES REFERENCE RANGE:Normal: <150 mg/dLBorderline High: 150-199 mg/dLHigh: 200-499 mg/dLVery High: >=500 mg/dL CHOLESTEROL (test code=CHOL) 191 MG/DL <200 HDL CHOLESTEROL (test 58 MG/DL 40-59 code=HDL) LIPOPROTEIN LDL (test 136 MG/DL 0-99 code=LDL) OPTIMAL.........<100 mg/dLNEAR OPTIMAL/ABOVE OPTIMAL.........100-129 mg/dL BORDERLINE HIGH.........130-159 mg/dL HIGH.........160-189 mg/dL VERY HIGH.........>/=190 mg/dL [id number] 07:30:00 Test Item Value Reference Range Comments MAGNESIUM (test code=MAG) 1.3 MG/DL 1.6-2.3 THYROID STIMULATING [id number] 07:30:00 Test Item Value Reference Range Comments THYROID STIMULATING HORMONE (test code=TSH) MIU/L 0.465-4.68 LIPID PROFILE (CORONARY RISK)2018-05-31 07:19:00 Test Item Value Reference Range Comments TRIGLYCERIDES (test code=TRIG) 93 MG/DL TRIGLYCERIDES REFERENCE RANGE:Normal: <150 mg/dLBorderline High: 150-199 mg/dLHigh: 200-499 mg/dLVery High: >=500 mg/dL CHOLESTEROL (test code=CHOL) 191 MG/DL <200 HDL CHOLESTEROL (test 58 MG/DL 40-59 code=HDL) LIPOPROTEIN LDL (test MG/DL 0-99 code=LDL) [id number] 07:19:00 Test Item Value Reference Range Comments MAGNESIUM (test code=MAG) 1.3 MG/DL 1.6-2.3 THYROID STIMULATING [id number] 07:19:00 Test Item Value Reference Range Comments THYROID STIMULATING HORMONE (test code=TSH) MIU/L 0.465-4.68 GLYCOSYLATED HEMOGLOBIN [id number] 22:01:00 Test Item Value Reference Range Comments GLYCOSYLATED HEMOGLOBIN 10.7 % 4.8-5.9 Any condition that shortens (HA1C) (test code=GLYHGB) erythocyte survival or decreasesmean erythrocyte age (e.g., recovery from acute blood loss,hemolytic anemia) will falsely lower HGBA1c resultsregardless of the method used. HGBA1c results from patientswith HbSS, HbCC, and HbSc must be interpreted with cautiongiven the pathological processes, including anemia,increased red cell turnover, transfusion requirements, thatadversely impact HGBA1c as a marker of long-term glycemiccontrol. Alternative forms of testing such as fructosamineshould be considered for these patients. MEAN BLOOD GLUCOSE (test 260 MG/DL 70-110 code=MBG) COMPREHENSIVE METABOLIC [id number] 20:45:00 Test Item Value Reference Range Comments SODIUM (test code=NA) 139 MMOL/L 137-145 POTASSIUM (test code=K) 4.9 MMOL/L 3.5-5.1 CHLORIDE (test code=CL) 101 MMOL/L 98-107 CARBON DIOXIDE (test code=CO2) 24 MMOL/L 22-30 ANION GAP (test code=GAP) 19 MMOL/L 14-24 GLUCOSE (test code=GLU) 332 MG/DL 74-106 CALLED TO [facility] HBE=869& READBACK ON 05/30/18 AT 2044 BY Jeremías Oh BLOOD UREA NITROGEN (test 7 MG/DL 9-20 code=BUN) GLOMERULAR FILTRATION RATE > 60 Reporting units: (test code=GFR) ml/min/1.73 m2 (Modified MDRD Formula)Reference Range: > or=60 ml/min/1.73 m2 CREATININE (test code=CREAT) 0.80 MG/DL 0.66-1.25 TOTAL PROTEIN (test code=PROT) 7.6 G/DL 6.2-7.6 ALBUMIN (test code=ALB) 4.3 G/DL 3.5-5.0 CALCIUM (test code=CA) 9.6 MG/DL 8.4-10.2 BILIRUBIN TOTAL (test < 0.1 MG/DL 0.2-1.3 code=BILT) SGOT/AST (test code=AST) 31 UNITS/L 17-59 SGPT/ALT (test code=ALT) 22 UNITS/L 21-72 ALKALINE PHOSPHATASE (test 192 UNITS/L 38-126 code=ALKP) GLUCOSE BEDSIDE [id number] 16:40:00 Test Item Value Reference Range Comments GLUCOSE BEDSIDE TESTING (test code=GLUBED) 314 MG/DL 60-99 URINALYSIS [id number] 15:07:00 Test Item Value Reference Range Comments UA COLOR (test code=COLU) YELLOW YELLOW UA APPEARANCE (test code=APPU) CLEAR CLEAR UA GLUCOSE DIPSTICK (test code=DGLUU) 1000 MG/DL NORMAL UA BILIRUBIN DIPSTICK (test code=BILU) NEGATIVE MG/DL NEGATIVE UA KETONE DIPSTICK (test code=KETU) NEGATIVE MG/DL NEGATIVE UA SPECIFIC GRAVITY (test code=SGU) 1.010 1.003-1.030 UA BLOOD DIPSTICK (test code=HAILEE) NEGATIVE Ben/mm3 NEGATIVE UA PH DIPSTICK (test code=MARLYN) 5.0 5.0-9.0 UA PROTEIN DIPSTICK (test code=PROU) NEGATIVE MG/DL NEGATIVE UA UROBILINIOGEN DIPSTICK (test code=URO) NORMAL MG/DL NORMAL UA NITRITE DIPSTICK (test code=LILA) NEGATIVE NEGATIVE UA LEUKOCYTE ESTERASE DIPSTICK (test NEGATIVE /mm3 NEGATIVE code=LEUU) UA CULTURE NEEDED? (test code=UACULT) Criteria Culture Chk URINALYSIS [id number] 15:07:00 Test Item Value Reference Range Comments UA COLOR (test code=COLU) YELLOW YELLOW UA APPEARANCE (test code=APPU) CLEAR CLEAR UA GLUCOSE DIPSTICK (test 1000 MG/DL NORMAL code=DGLUU) UA BILIRUBIN DIPSTICK (test NEGATIVE MG/DL NEGATIVE code=BILU) UA KETONE DIPSTICK (test NEGATIVE MG/DL NEGATIVE code=KETU) UA SPECIFIC GRAVITY (test 1.010 1.003-1.030 code=SGU) UA BLOOD DIPSTICK (test code=HAILEE) NEGATIVE Ben/mm3 NEGATIVE UA PH DIPSTICK (test code=MARLYN) 5.0 5.0-9.0 UA PROTEIN DIPSTICK (test NEGATIVE MG/DL NEGATIVE code=PROU) UA UROBILINIOGEN DIPSTICK (test NORMAL MG/DL NORMAL code=URO) UA NITRITE DIPSTICK (test NEGATIVE NEGATIVE code=LILA) UA LEUKOCYTE ESTERASE DIPSTICK NEGATIVE /mm3 NEGATIVE (test code=LEUU) UA CULTURE NEEDED? (test NEGATIVE, NO CULTURE Culture Chk code=UACULT) Criteria GLUCOSE BEDSIDE [id number] 12:16:00 Test Item Value Reference Range Comments GLUCOSE BEDSIDE TESTING (test code=GLUBED) 368 MG/DL 60-99 COMPREHENSIVE METABOLIC [id number] 11:34:00 Test Item Value Reference Range Comments SODIUM (test code=NA) 140 MMOL/L 137-145 POTASSIUM (test code=K) 5.1 MMOL/L 3.5-5.1 CHLORIDE (test code=CL) 99 MMOL/L 98-107 CARBON DIOXIDE (test code=CO2) 27 MMOL/L 22-30 ANION GAP (test code=GAP) 19 MMOL/L 14-24 GLUCOSE (test code=GLU) 487 MG/DL 74-[address] ALFONSO & READBACK ON 05/30/18 AT 1127 Elizabeth Madrigal BLOOD UREA NITROGEN (test 6 MG/DL 9-20 code=BUN) GLOMERULAR FILTRATION RATE > 60 Reporting units: (test code=GFR) ml/min/1.73 m2 (Modified MDRD Formula)Reference Range: > or=60 ml/min/1.73 m2 CREATININE (test code=CREAT) 0.80 MG/DL 0.66-1.25 TOTAL PROTEIN (test code=PROT) 8.2 G/DL 6.2-7.6 ALBUMIN (test code=ALB) 4.7 G/DL 3.5-5.0 CALCIUM (test code=CA) 9.9 MG/DL 8.4-10.2 BILIRUBIN TOTAL (test < 0.1 MG/DL 0.2-1.3 code=BILT) SGOT/AST (test code=AST) 41 UNITS/L 17-59 SGPT/ALT (test code=ALT) 28 UNITS/L 21-72 ALKALINE PHOSPHATASE (test 204 UNITS/L 38-126 code=ALKP) [id number] 11:34:00 Test Item Value Reference Range Comments ALCOHOL (test code=ALC) 348.0 MG/DL <[address] ALFONSO& READBACK ON 05/30/18 AT 1133 BY Elizabeth Machado PROTHROMBIN [id number] 11:11:00 Test Item Value Reference Range Comments PROTHROMBIN TIME PATIENT (test 11.3 SECONDS 9.6-11.6 code=PTP) INTERNATIONAL NORMAL RATIO 1.1 0.8-1.1 The INR is to be used only (test code=INR) for monitoring oral anticoagulanttherapy. INDICATION INR VALUE 1. Prophylaxis, deep venous thrombosis, including high risk surgery. 2.0 - 3.0 2. Prophylaxis, deep venous thrombosis, hip surgery, treatment for deep venous thrombosis or pulmonary prevention of systemic embolism in patients with valvular heart disease, atrial fibrillation, tissue heart valve, or acute myocardial infarction. 2.0 - 3.0 3. Mechanical prosthesis heart valves, recurrent systemic embolism. 3.0 - 4.5 PTT [id number] 11:11:00 Test Item Value Reference Range Comments PTT ACTIVATED (test code=APTT) 25.5 SECONDS 22.0-33.0 CBC W/AUTO [id number] 10:57:00 Test Item Value Reference Range Comments WHITE BLOOD CELL (test code=WBC) 5.5 K/MM3 3.8-9.8 RED BLOOD CELL (test code=RBC) 4.08 M/MM3 3.95-5.67 HEMOGLOBIN (test code=HGB) 12.5 G/DL 12.4-16.7 HEMATOCRIT (test code=HCT) 37.3 % 35.9-49.5 MEAN CELL VOLUME (test code=MCV) 91 fL 81.7-96.1 MEAN CELL HGB (test code=MCH) 30.6 pg 27.6-33.2 MEAN CELL HGB CONCETRATION (test code=MCHC) 33.5 % 32.9-35.5 RED CELL DISTRIBUTION WIDTH (test code=RDW) 14.8 % 12.1-15.2 PLATELET COUNT (test code=PLT) 238 K/MM3 129-368 MEAN PLATELET VOLUME (test code=MPV) 9.6 fl 7.4-10.4 NEUTROPHIL % (test code=NT%) 51.3 % 43-75 IMMATURE GRANULOCYTE % (test code=IG%) 1.1 % 0.0-2.0 LYMPHOCYTE % (test code=LY%) 38.6 % 14-44 MONOCYTE % (test code=MO%) 5.7 % 4-13 EOSINOPHIL % (test code=EO%) 1.5 % 0-6 BASOPHIL % (test code=BA%) 1.8 % 0-2 NUCLEATED RBC % (test code=NRBC%) 0.0 % 0-1.0 NEUTROPHIL # (test code=NT#) 2.80 K/mm3 2.0-7.6 IMMATURE GRANULOCYTE # (test code=IG#) 0.06 x10 3/uL 0-0.03 LYMPHOCYTE # (test code=LY#) 2.11 K/mm3 1.0-3.8 MONOCYTE # (test code=MO#) 0.31 K/mm3 0.1-0.8 EOSINOPHIL # (test code=EO#) 0.08 K/mm3 0.0-0.2 BASOPHIL # (test code=BA#) 0.10 K/mm3 0.0-0.2 NUCLEATED RBC # (test code=NRBC#) 0.00 K/mm3 0.0-0.1 - XR HIP W/PEL UNI 2+V [id number] 09:50:00 Patient Name: PRIYANKA EVANGELISTA Unit No: [id number] EXAMS: CPT CODE: [id number] XR HIP W/PEL UNI 2+[place] [id number] Location code: R 16 Right hip 2 views the: Indication: R hip pain. Comparison: none Findings Degenerative changes of lower lumbar spine. Left hip intramedullary marjorie and pin. Pelvic structures intact. Sacroiliac joints and symphysis pubis intact. Right hip articulation is intact. Intertrochanteric fracture of the right hip, with mild fragment displacement. Soft tissues unremarkable. IMPRESSION: Intertrochanteric fracture right hip. at 0950 Reported and signed by: Christiano Zapata M.D. CC: Evan Alfonso MD Technologist:Noah Rodrigues RT(R); Holger Goff (RT)(R) Transcrpt Date/Tm/Trnsp: 05/30/2018 (0950) [email or web address] Orig Print D/T: S: 05/30/2018 (3553) [facility] NAME: PRIYANKA EVANGELISTA [id number] PHYS: [place] [address] : 1965 AGE: 53 SEX: M LOC: [employer] PHONE #: [phone] EXAM DATE: 05/30/2018 STATUS: DIS IN FAX #: [phone] RADIOLOGY NO: PAGE 1 Signed Report- XR HIP W/PEL UNI 2+V [id number] 09:50:00 Patient Name: PRIYANKA EVANGELISTA Unit No: [id number] EXAMS: CPT CODE: [id number] XR HIP W/PEL UNI 2+[place] [address] Location code: R 16 Right hip 2 views the: Indication: R hip pain. Comparison: none Findings Degenerative changes of lower lumbar spine. Left hip intramedullary marjorie and pin. Pelvic structures intact. Sacroiliac joints and symphysis pubis intact. Right hip articulation is intact. Intertrochanteric fracture of the right hip, with mild fragment displacement. Soft tissues unremarkable. IMPRESSION: Intertrochanteric fracture right hip. at 0950 Reported and signed by: Christiano Zapata M.D. CC: Evan Alfonso MD Technologist:RT Naveed(R); Holger Goff (RT)(R) Transcrpt Date/Tm/Trnsp: 05/30/2018 (6650) [email or web address] Orig Print D/T: S: (0953) [facility] NAME: PRIYANKA EVANGELISTA [id number] PHYS : [place] [address] : 02/1966 AGE: 53 SEX: M LOC: .[employer] PHONE #: [phone] EXAM DATE: STATUS: PRE ER FAX #: [phone] RADIOLOGY NO: PAGE 1 Signed Report- XR HIP W/PEL UNI 2+V [id number] 14:25:00 Patient Name: PRIYANKA EVANGELISTA Unit No: [id number] EXAMS: CPT CODE: [id number] XR HIP W/PEL UNI 2+[place] [address] Fluoroscopy Left hip nailing FINDINGS: An intramedullary nail with an intertrochanteric screw transfixes an intertrochanteric fracture. Hardware appears intact Fluoroscopy time utilized 77 seconds. Please refer to operative report for further details. Electronically Signed by Leonila Lane on 2016at 1425 Reported and signed by: Johnson Lane M.D. CC: Adrianne Tracy MD; Lisa Narvaez Technologist: Rohan Machado, RT(R); Gwen Bales RT(R) Transcrpt Date/Tm/Trnsp: 05/16/2016 (1421) [email or web address] Orig Print D/T:S: 05/16/2016 (1428) [facility] NAME: PRIYANKA EVANGELISTA [id number] PHYS: [place] [address] : 1965 AGE: 51 SEX: M LOC: [employer] PHONE #: [phone] EXAM DATE: 05/16/2016 STATUS: UNK FAX #: [phone] RADIOLOGY NO: PAGE 1 Signed Report- XR WRIST 3+V [id number] 19:15:00 Patient Name: PRIYANKA EVANGELISTA Unit No: [id number] EXAMS: CPT CODE: [id number] XR WRIST 3+[place] [address] Location n 13 Left Wrist, 3 views History: Wristpain Comparison: None available Findings: There is a nondisplaced transverse (but slightly obliqued) fracture at the distal radial metaphysis. No definite intra-articular extension. There is surrounding soft tissue swelling. Other osseous structures atthe wrist appear intact and well aligned. Impression: Nondisplaced fracture of the distal radial metaphysis without evidence of intra-articular extension. at 1915 Reported and signed by: Jacklyn Matamoros M.D. CC: Adrianne Tracy MD Technologist: Gwen Bales, RT(R) Transcrpt Date/Tm/Trnsp: 2015 (1914) [place] Orig Print D/T: S: 01/31/2016 (1917) [facility] NAME: PRIYANKA EVANGELISTA [address] PHYS: [place] [address] : 1965 AGE: 50 SEX: M LOC: [employer] PHONE #: [phone] EXAM DATE: 2015 STATUS: [employer] FAX #: [phone] RADIOLOGY NO: PAGE 1 Signed Report
--- NOTE | 2018-12-20 11:25 | ER ---
Nurse's Notes [facility] Name: Frandy Gomes Age: 53 yrs Sex: Male : 1965 Arrival Date: 12/20/2018 Time: 10:51 Bed 28 Private MD: Diagnosis: Cutaneous abscess of right hand;Cutaneous abscess of hand;Type 2 diabetes mellitus;Hypo-osmolality and hyponatremia;Hypomagnesemia Presentation: 12/20 10:53 Presenting complaint: Patient states: Redness, swelling, and drainage to the right hand aj1 for the past 6 months. He was seen at this ER on December 15 for the same complaint and discharged with a prescription for Bactrim, which he took but it didn't help and has gotten worse. Also reports that he has been out of all of his medications. Transition of care: patient was not received from another setting of care. Onset of symptoms was 2018. Risk Assessment: Do you want to hurt yourself or someone else? Patient reports no desire to harm self or others. Initial Sepsis Screen: Does the patient meet any 2 criteria? No. Patient's initial sepsis screen is negative. Does the patient have a suspected source of infection? Yes: Skin breakdown/wound. Care prior to arrival: None. 10:53 Method Of Arrival: EMS: [facility] aj1 10:53 Acuity: VARINDER 3 aj1 Triage Assessment: 10:58 General: Appears in no apparent distress. uncomfortable, Behavior is calm, cooperative, aj1 appropriate for age. Pain: Complains of pain in right hand Pain currently is 10 out of 10 on a pain scale. Historical: - Allergies: 10:58 No Known Allergies; aj1 - PMHx: 10:58 Diabetes - NIDDM; Seizures; Hypertension; Hyperlipidemia; GERD; COPD; titanium marjorie in aj1 arm and hip; - Immunization history:: Flu vaccine is up to date. - Social history:: Smoking status: Patient uses tobacco products, 2 cigarettes per day. - Ebola Screening: : Patient denies travel to an Ebola-affected area in the 21 days before illness onset. - Family history:: not pertinent. Screenin:04 Abuse screen: Denies threats or abuse. Denies injuries from another. Nutritional aj1 screening: No deficits noted. Tuberculosis screening: No symptoms or risk factors identified. 15:40 Fall Risk None identified. rv Assessment: 11:04 General: Appears in no apparent distress. uncomfortable, Behavior is calm, cooperative, aj1 appropriate for age. Pain: Complains of pain in right hand Pain currently is 10 out of 10 on a pain scale. Neuro: Level of Consciousness is awake, alert, obeys commands, Oriented to person, place, time, situation, Speech is normal. Cardiovascular: Patient's skin is warm and dry. Respiratory: Airway is patent Respiratory effort is even, unlabored, Respiratory pattern is regular, symmetrical. GI: No signs and/or symptoms were reported involving the gastrointestinal system. : No signs and/or symptoms were reported regarding the genitourinary system. EENT: No signs and/or symptoms were reported regarding the EENT system. Derm: redness, swelling, drainage, and blistering noted to right hand. Musculoskeletal: No signs and/or symptoms reported regarding the musculoskeletal system. Circulation, motion, and sensation intact. 12:00 Reassessment: Patient appears in no apparent distress at this time. No changes from aj1 previously documented assessment. Patient and/or family updated on plan of care and expected duration. Pain level reassessed. Patient is alert, oriented x 3, equal unlabored respirations, skin warm/dry/pink. 13:00 Reassessment: Patient appears in no apparent distress at this time. No changes from aj1 previously documented assessment. Patient and/or family updated on plan of care and expected duration. Pain level reassessed. Patient is alert, oriented x 3, equal unlabored respirations, skin warm/dry/pink. 14:00 Reassessment: Patient and/or family updated on plan of care and expected duration. Pain aj1 level reassessed. General: Appears in no apparent distress. comfortable, Behavior is calm, cooperative, appropriate for age. Neuro: Level of Consciousness is awake, alert, obeys commands, Speech is normal. Cardiovascular: Patient's skin is warm and dry. Respiratory: Airway is patent Respiratory effort is even, unlabored, Respiratory pattern is regular, symmetrical. GI: No signs and/or symptoms were reported involving the gastrointestinal system. 15:01 Reassessment: Patient appears in no apparent distress at this time. No changes from aj1 previously documented assessment. Patient and/or family updated on plan of care and expected duration. Pain level reassessed. Patient is alert, oriented x 3, equal unlabored respirations, skin warm/dry/pink. 16:00 Reassessment: Patient appears in no apparent distress at this time. No changes from aj1 previously documented assessment. Patient and/or family updated on plan of care and expected duration. Pain level reassessed. Patient is alert, oriented x 3, equal unlabored respirations, skin warm/dry/pink. Vital Signs: 10:58 BP 120 / 81; Pulse 89; Resp 18; Temp 98.6; Pulse Ox 100% on R/A; Weight 78.47 kg (R); aj1 Height 5 ft. 8 in. (172.72 cm) (R); Pain 10/10; 12:00 BP 97 / 56; Pulse 88; Resp 18; Pulse Ox 98% on R/A; aj1 13:00 BP 100 / 67; Pulse 83; Resp 18; Pulse Ox 99% on R/A; aj1 15:02 BP 107 / 84; Pulse 86; Resp 18; Pulse Ox 100% on R/A; aj1 15:40 BP 105 / 84; Pulse 87; Resp 18; Pulse Ox 99% ; rv 16:23 Temp 98.4(O); aj1 10:58 Body Mass Index 26.30 (78.47 kg, 172.72 cm) aj1 ED Course: 10:51 Patient arrived in ED. aj1 10:52 Robbie Talley MD is Attending Physician. [facility] 10:53 Payton Whelan, RN is Primary Nurse. aj1 10:56 Triage completed. aj1 10:58 Arm band placed on. aj1 11:04 Patient has correct armband on for positive identification. Placed in gown. Bed in low aj1 position. Call light in reach. 11:04 No provider procedures requiring assistance completed. aj1 11:22 Anne Abrams MD is Hospitalizing Provider. jessica 11:34 EKG done, by senior electronics technician. reviewed by Robbie Talley MD. at1 11:52 Initial lab(s) drawn, by la, sent to lab. First set of blood cultures drawn by la. lt1 11:55 Inserted saline lock: 20 gauge in left forearm, using aseptic technique. lt1 12:15 Inserted saline lock: 20 gauge in left forearm, using aseptic technique. aj1 12:15 Second set of blood cultures drawn by la. aj1 12:18 XRAY Chest (1 view) In Process Unspecified. EDMS 12:18 Hand Right 3 View XRAY In Process Unspecified. EDMS 13:13 Zulema Hamilton MD is Hospitalizing Provider. [facility] 16:24 Patient admitted, IV remains in place. aj1 Administered Medications: 12:00 Drug: morphine 2 mg Route: IVP; Site: left forearm; aj1 12:30 Follow up: Response: No adverse reaction; RASS: Alert and Calm (0) aj1 12:00 Drug: Zofran 4 mg Route: IVP; Site: left forearm; aj1 12:30 Follow up: Response: No adverse reaction aj1 12:28 CANCELLED (medication not available at this time): Unasyn 3 grams IVPB once over 30 aj1 mins; (mix in 100 mL NS) 12:28 Not Given (Patient reports he had a tetanus shot earlier this month): aj1 Tetanus-Diphtheria Toxoid Adult 0.5 ml IM once 12:29 Drug: Zosyn 3.375 grams Route: IVPB; Infused Over: 60 mins; Site: right forearm; aj1 13:30 Follow up: IV Status: Completed infusion; IV Intake: 100ml aj1 13:21 Drug: NS 0.9% 1000 ml Route: IV; Rate: 1 bolus; Site: left forearm; aj1 14:40 Follow up: IV Status: Completed infusion; IV Intake: 1000ml aj1 13:21 Drug: NS 0.9% 1000 ml Route: IV; Rate: 125 ml/hr; Site: left forearm; aj1 16:26 Follow up: IV Status: Completed infusion; IV Intake: 400ml aj1 13:23 Drug: Insulin Regular Human 10 units {Co-Signature: jl7 (Rd Hancock RN).} Route: aj1 Sub-Q; Site: left upper abdomen; 15:03 Follow up: Response: No adverse reaction aj1 13:24 Drug: Insulin Regular Human 10 units {Co-Signature: jl7 (Rd Hancock RN).} Route: IVP; aj1 Site: left forearm; 15:03 Follow up: Response: No adverse reaction aj1 13:30 Drug: vancoMYCIN 1 grams Route: IVPB; Infused Over: 2 hrs; Site: left forearm; aj1 16:26 Follow up: IV Status: Completed infusion; IV Intake: 200ml aj1 14:10 Drug: morphine 2 mg {Note: RASS.} Route: IVP; Site: left forearm; aj1 15:02 Follow up: Response: No adverse reaction; RASS: Alert and Calm (0) aj1 14:39 Drug: Magnesium Sulfate 1 grams Route: IVPB; Infused Over: 1 hrs; Site: left forearm; aj1 16:26 Follow up: IV Status: Completed infusion; IV Intake: 100ml aj1 Point of Care Testing: Blood Glucose: 13:20 Blood Glucose: 389 mg/dL; aj1 13:52 Blood Glucose: 376 mg/dL; aj1 Ranges: Intake: 13:30 IV: 100ml; Total: 100ml. aj1 14:40 IV: 1000ml; Total: 1100ml. aj1 16:26 IV: 100ml; Total: 1200ml. aj1 16:26 IV: 200ml; Total: 1400ml. aj1 16:26 IV: 400ml; Total: 1800ml. aj1 Outcome: 11:24 Decision to Hospitalize by Provider. [facility] 16:25 Admitted to Med/surg accompanied by tech, via wheelchair, with chart, Report called to ajWarren Bauman RN on 2nd floor 16:25 Condition: stable 16:25 Discharge instructions given to patient, Instructed on the need for admit, Demonstrated understanding of instructions. 16:27 Patient left the ED. aj1 Signatures: Dispatcher [employer] EDPayton Nava, RN RN aj1 Robbie Talley MD MD cha Gonzales, Amanda, spanish linguist EKG Tat1 Blue Rasheed RN RN rv Tran, Leah [address] Hancock RN jl7 Corrections: (The following items were deleted from the chart) 13:20 13:19 Blood Glucose: Blood Glucose Gmlwfrk=028 mg/dL. aj1 aj1
--- NOTE | 2018-12-20 11:26 | EDPHYS ---
Physician Documentation [facility] Name: Farndy Gomes Age: 53 yrs Sex: Male : 1965 Arrival Date: 12/20/2018 Time: 10:51 Bed 28 Private MD: ED Physician Robbie Talley HPI: 12/20 11:18 This 53 yrs old Male presents to ER via EMS with complaints of Hand Swelling. jessica 11:18 The patient or guardian reports decreased range of motion, pain, swelling, tenderness. jessica The complaints affect the right hand diffusely. Context: The problem was sustained at an unknown location. Onset: The symptoms/episode began/occurred 21 day(s) ago. Modifying factors: The symptoms are alleviated by elevation, the symptoms are aggravated by movement, dependent position. Associated signs and symptoms: The patient has no apparent associated signs or symptoms. Severity of symptoms: At their worst the symptoms were moderate, in the emergency department the symptoms are unchanged, despite home interventions, are actually worse. The patient has not experienced similar symptoms in the past. Historical: - Allergies: 10:58 No Known Allergies; aj1 - PMHx: 10:58 Diabetes - NIDDM; Seizures; Hypertension; Hyperlipidemia; GERD; COPD; titanium marjorie in aj1 arm and hip; - Immunization history:: Flu vaccine is up to date. - Social history:: Smoking status: Patient uses tobacco products, 2 cigarettes per day. - Ebola Screening: : Patient denies travel to an Ebola-affected area in the 21 days before illness onset. - Family history:: not pertinent. ROS: 11:18 Constitutional: Negative for fever, chills, and weight loss, Eyes: Negative for injury, jessica pain, redness, and discharge, ENT: Negative for injury, pain, and discharge, Neck: Negative for injury, pain, and swelling, Cardiovascular: Negative for chest pain, palpitations, and edema, Respiratory: Negative for shortness of breath, cough, wheezing, and pleuritic chest pain, Abdomen/GI: Negative for abdominal pain, nausea, vomiting, diarrhea, and constipation, Back: Negative for injury and pain, : Negative for injury, bleeding, discharge, and swelling, Skin: Negative for injury, rash, and discoloration, Neuro: Negative for headache, weakness, numbness, tingling, and seizure, Psych: Negative for depression, anxiety, suicide ideation, homicidal ideation, and hallucinations, Allergy/Immunology: Negative for hives, rash, and allergies, Endocrine: Negative for neck swelling, polydipsia, polyuria, polyphagia, and marked weight changes, Hematologic/Lymphatic: Negative for swollen nodes, abnormal bleeding, and unusual bruising. 11:18 MS/extremity: Positive for decreased range of motion, pain, swelling, tenderness, of the right hand. Exam: 11:18 Constitutional: This is a well developed, well nourished patient who is awake, alert, jessica and in no acute distress. Head/Face: Normocephalic, atraumatic. Eyes: Pupils equal round and reactive to light, extra-ocular motions intact. Lids and lashes normal. Conjunctiva and sclera are non-icteric and not injected. Cornea within normal limits. Periorbital areas with no swelling, redness, or edema. ENT: Nares patent. No nasal discharge, no septal abnormalities noted. Tympanic membranes are normal and external auditory canals are clear. Oropharynx with no redness, swelling, or masses, exudates, or evidence of obstruction, uvula midline. Mucous membranes moist. Neck: Trachea midline, no thyromegaly or masses palpated, and no cervical lymphadenopathy. Supple, full range of motion without nuchal rigidity, or vertebral point tenderness. No Meningismus. Chest/axilla: Normal chest wall appearance and motion. Nontender with no deformity. No lesions are appreciated. Cardiovascular: Regular rate and rhythm with a normal S1 and S2. No gallops, murmurs, or rubs. Normal PMI, no JVD. No pulse deficits. Respiratory: Lungs have equal breath sounds bilaterally, clear to auscultation and percussion. No rales, rhonchi or wheezes noted. No increased work of breathing, no retractions or nasal flaring. Abdomen/GI: Soft, non-tender, with normal bowel sounds. No distension or tympany. No guarding or rebound. No evidence of tenderness throughout. Back: No spinal tenderness. No costovertebral tenderness. Full range of motion. Male : Normal genitalia with no discharge or lesions. Skin: Warm, dry with normal turgor. Normal color with no rashes, no lesions, and no evidence of cellulitis. Neuro: Awake and alert, GCS 15, oriented to person, place, time, and situation. Cranial nerves II-XII grossly intact. Motor strength 5/5 in all extremities. Sensory grossly intact. Cerebellar exam normal. Normal gait. Psych: Awake, alert, with orientation to person, place and time. Behavior, mood, and affect are within normal limits. 11:18 Musculoskeletal/extremity: ROM: limited active range of motion due to pain, limited passive range of motion due to pain, Circulation is intact in all extremities. Sensation intact. Compartment Syndrome exam of affected extremity: is normal. DVT Exam: negative Homans' sign noted on exam, no appreciated bluish discoloration, pain, swelling, tenderness, erythema, increased warmth, that is moderate. Vital Signs: 10:58 BP 120 / 81; Pulse 89; Resp 18; Temp 98.6; Pulse Ox 100% on R/A; Weight 78.47 kg (R); aj1 Height 5 ft. 8 in. (172.72 cm) (R); Pain 10/10; 12:00 BP 97 / 56; Pulse 88; Resp 18; Pulse Ox 98% on R/A; aj1 13:00 BP 100 / 67; Pulse 83; Resp 18; Pulse Ox 99% on R/A; aj1 15:02 BP 107 / 84; Pulse 86; Resp 18; Pulse Ox 100% on R/A; aj1 15:40 BP 105 / 84; Pulse 87; Resp 18; Pulse Ox 99% ; rv 16:23 Temp 98.4(O); aj1 10:58 Body Mass Index 26.30 (78.47 kg, 172.72 cm) [facility] MDM: 10:52 Patient medically screened. [facility] 13:12 Data reviewed: vital signs, nurses notes, lab test result(s), radiologic studies, plain jessica films. 12/20 11:18 Order name: Basic Metabolic Panel; Complete Time: 13:10 [facility] 12/20 11:18 Order name: CBC with Diff [facility] 12/20 11:18 Order name: LFT's; Complete Time: 13:10 [facility] 12/20 11:18 Order name: Magnesium; Complete Time: 13:10 [facility] 12/20 11:18 Order name: NT PRO-BNP; Complete Time: 13:10 [facility] 12/20 11:18 Order name: PT-INR [facility] 12/20 11:18 Order name: Troponin (emerg Dept Use Only); Complete Time: 13:10 [facility] 12/20 11:18 Order name: XRAY Chest (1 view); Complete Time: 13:10 [facility] 12/20 11:18 Order name: Blood Culture Adult (2) [facility] 12/20 11:18 Order name: UDS; Complete Time: 12:30 [facility] 12/20 11:18 Order name: Hand Right 3 View XRAY; Complete Time: 13:10 [facility] 12/20 11:18 Order name: EKG; Complete Time: 11:22 [facility] 12/20 11:18 Order name: Cardiac monitoring; Complete Time: 12:30 [facility] 12/20 11:18 Order name: EKG - Nurse/Tech; Complete Time: 12:30 [facility] 12/20 11:18 Order name: IV Saline Lock; Complete Time: 12:30 [facility] 12/20 11:18 Order name: Labs collected and sent; Complete Time: 12:30 [facility] 12/20 11:18 Order name: O2 Per Protocol; Complete Time: 11:28 [facility] 12/20 11:18 Order name: O2 Sat Monitoring; Complete Time: 11:28 [facility] Administered Medications: 12:00 Drug: morphine 2 mg Route: IVP; Site: left forearm; aj1 12:30 Follow up: Response: No adverse reaction; RASS: Alert and Calm (0) aj1 12:00 Drug: Zofran 4 mg Route: IVP; Site: left forearm; aj1 12:30 Follow up: Response: No adverse reaction aj1 12:28 CANCELLED (medication not available at this time): Unasyn 3 grams IVPB once over 30 aj1 mins; (mix in 100 mL NS) 12:28 Not Given (Patient reports he had a tetanus shot earlier this month): aj1 Tetanus-Diphtheria Toxoid Adult 0.5 ml IM once 12:29 Drug: Zosyn 3.375 grams Route: IVPB; Infused Over: 60 mins; Site: right forearm; aj1 13:30 Follow up: IV Status: Completed infusion; IV Intake: 100ml aj1 13:21 Drug: NS 0.9% 1000 ml Route: IV; Rate: 1 bolus; Site: left forearm; aj1 14:40 Follow up: IV Status: Completed infusion; IV Intake: 1000ml aj1 13:21 Drug: NS 0.9% 1000 ml Route: IV; Rate: 125 ml/hr; Site: left forearm; aj1 16:26 Follow up: IV Status: Completed infusion; IV Intake: 400ml 13:23 Drug: Insulin Regular Human 10 units {Co-Signature: sherlyn (Rd Hancock RN).} Route: aj1 Sub-Q; Site: left upper abdomen; 15:03 Follow up: Response: No adverse reaction 13:24 Drug: Insulin Regular Human 10 units {Co-Signature: sherlyn (Rd Hancock RN).} Route: IVP; aj1 Site: left forearm; 15:03 Follow up: Response: No adverse reaction 13:30 Drug: vancoMYCIN 1 grams Route: IVPB; Infused Over: 2 hrs; Site: left forearm; aj1 16:26 Follow up: IV Status: Completed infusion; IV Intake: 200ml 14:10 Drug: morphine 2 mg {Note: RASS.} Route: IVP; Site: left forearm; aj1 15:02 Follow up: Response: No adverse reaction; RASS: Alert and Calm (0) 14:39 Drug: Magnesium Sulfate 1 grams Route: IVPB; Infused Over: 1 hrs; Site: left forearm; aj 16:26 Follow up: IV Status: Completed infusion; IV Intake: 100ml aj Point of Care Testing: Blood Glucose: 13:20 Blood Glucose: 389 mg/dL; 13:52 Blood Glucose: 376 mg/dL; aj1 Ranges: Critical Glucose Levels:Adult <50 mg/dl or >400 mg/dl <40 mg/dl or >180 mg/dl Disposition: 12/20/18 11:24 Hospitalization ordered by Zulema Hamilton for Inpatient Admission. Preliminary diagnosis are Cutaneous abscess of right hand, Cutaneous abscess of hand, Type 2 diabetes mellitus, Hypo-osmolality and hyponatremia, Hypomagnesemia. - Bed requested for Telemetry/MedSurg (Inpatient). - Status is Inpatient Admission. aj1 - Condition is Fair. - Problem is new. - Symptoms have improved. UTI on Admission? No Signatures: Dispatcher [employer] Payton Grullon RN RN aj1 Mayuri Toro RN RN dw Anderson, Corey, MD MD cha Jahala Leal RN jl7 Corrections: (The following items were deleted from the chart) 12:28 11:19 Unasyn 3 grams IVPB once over 30 mins; (mix in 100 mL NS) ordered. [facility] aj1 13:13 11:24 Hospitalization Ordered by Anne Abrams MD for Inpatient Admission. Preliminary [facility] diagnosis is Cutaneous abscess of right hand; Cutaneous abscess of hand; Type 2 diabetes mellitus. Bed requested for Telemetry/MedSurg (Inpatient). Status is Inpatient Admission. Condition is Fair. Problem is new. Symptoms have improved. UTI on Admission? No. [facility] 13:13 13:13 12/20/2018 11:24 Hospitalization Ordered by Anne Abrams MD for Inpatient [facility] Admission. Preliminary diagnosis is Cutaneous abscess of right hand; Cutaneous abscess of hand; Type 2 diabetes mellitus; Hypo-osmolality and hyponatremia; Hypomagnesemia. Bed requested for Telemetry/MedSurg (Inpatient). Status is Inpatient Admission. Condition is Fair. Problem is new. Symptoms have improved. UTI on Admission? No. [facility] 14:49 13:13 12/20/2018 11:24 Hospitalization Ordered by Zulema Hamilton MD for Inpatient Admission. Preliminary diagnosis is Cutaneous abscess of right hand; Cutaneous abscess of hand; Type 2 diabetes mellitus; Hypo-osmolality and hyponatremia; Hypomagnesemia. Bed requested for Telemetry/MedSurg (Inpatient). Status is Inpatient Admission. Condition is Fair. Problem is new. Symptoms have improved. UTI on Admission? No. jessica 14:56 14:49 12/20/2018 11:24 Hospitalization Ordered by Zulema Hamilton MD for Inpatient Admission. Preliminary diagnosis is Cutaneous abscess of right hand; Cutaneous abscess of hand; Type 2 diabetes mellitus; Hypo-osmolality and hyponatremia; Hypomagnesemia. Bed requested for Telemetry/MedSurg (Inpatient). Status is Inpatient Admission. Condition is Fair. Problem is new. Symptoms have improved. UTI on Admission? No. dw 16:27 14:56 12/20/2018 11:24 Hospitalization Ordered by Zulema Hamilton MD for Inpatient [facility] Admission. Preliminary diagnosis is Cutaneous abscess of right hand; Cutaneous abscess of hand; Type 2 diabetes mellitus; Hypo-osmolality and hyponatremia; Hypomagnesemia. Bed requested for Telemetry/MedSurg (Inpatient). Status is Inpatient Admission. Condition is Fair. Problem is new. Symptoms have improved. UTI on Admission? No. dw
[2018-12-20] MEDS ORDERED: MORPHINE 2 MG/ML SYR ONE ×2 (11:30→14:00)
[2018-12-20] MEDS ORDERED: TETANUS & DIPHTHERIA TOX,ADULT 0.5 ML VIAL ONE (11:31)
[2018-12-20] MEDS ORDERED: ONDANSETRON 4 MG/2 ML VIAL ONE (11:31)
[2018-12-20] MEDS ORDERED: VANCOMYCIN/NS 1 gm 1 GM/250 ML BAG IV ONE (11:45)
[2018-12-20] MEDS ORDERED: AMPICILLIN/SULBACT 3 GM in NA CHLORIDE 0.9% 100 ML IVPB ONE (11:45)
[2018-12-20] MEDS ORDERED: PIPER/TAZO/NS 3.375gm 3.375 GM/100 ML BAG ONE (12:07)
[2018-12-20 12:11] LABS: Protime INR 1.23
[2018-12-20 12:13] LABS: Basophils % 0.3 % (0-1.3); Hematocrit 34.2 % (39.6-49.0); Lymphocytes % 9.1 % (15.3-44.8); MPV 8.8 fL (7.6-11.3); RBC Red Blood Cell Count 3.87 M/uL (4.33-5.43)
--- NOTE | 2018-12-20 12:14 | RAD REPORT ---
EXAM DESCRIPTION: RAD - Chest Single View - 12/20/2018 12:05 pm CLINICAL HISTORY: COUGH Chest pain. COMPARISON: No comparisons FINDINGS: Portable technique limits examination quality. The lungs are grossly clear. The heart is normal in size. No displaced fractures.Proximal left humeru s prosthesis. IMPRESSION: No acute intrathoracic process suspected.
--- NOTE | 2018-12-20 12:18 | RAD REPORT ---
EXAM DESCRIPTION: RAD - Hand Right 3 View - 12/20/2018 12:04 pm CLINICAL HISTORY: Pain;Swelling COMPARISON: Hand Right 3 View dated 12/15/2018 FINDINGS: A large amount of soft tissue swelling is seen along the dorsal aspect of the hand, progre ssive since the comparative study. No subcutaneous gas seen. No underlying fracture evident.
[2018-12-20 12:21] LABS: Barbiturates NEGATIVE (NEGATIVE); Benzodiazepines NEGATIVE (NEGATIVE); Cocaine NEGATIVE (NEGATIVE); METHAMPHETAM NEGATIVE (NEGATIVE); Methadone NEGATIVE (NEGATIVE); Opiates POSITIVE (NEGATIVE); Phencyclidine NEGATIVE (NEGATIVE); THC Cannibis NEGATIVE (NEGATIVE)
[2018-12-20 12:29] LABS: ALT/SGPT 52 U/L (12-78); AST/SGOT 64 U/L (15-37); Albumin 3.2 g/dL (3.4-5.0); Alkaline Phosphatase 268 U/L (45-117); BUN Blood Urea Nitrogen 19 mg/dL (7-18); Bicarbonate 20 mmol/L (21-32); Bilirubin Direct 0.2 mg/dL (0-0.2); Bilirubin Total 0.5 mg/dL (0.2-1.0); Magnesium 1.7 mg/dL (1.8-2.4); NT PRO-BNP 131 pg/mL (<125); Potassium 4.5 mmol/L (3.5-5.1); Sodium Level 124 mmol/L (136-145); Troponin (Emerg Dept Use Only) < 0.02 ng/mL (0.0-0.045)
[2018-12-20 12:30] LABS: Glucose Level 444 mg/dL (74-106)
[2018-12-20] MEDS ORDERED: INSULIN -REGULAR HUMAN 50 UNIT/0.5 ML ML ONE (13:06)
[2018-12-20] MEDS ORDERED: NA CHLORIDE 0.9% 2,000 ML ONE (13:06)
--- NOTE | 2018-12-20 13:35 | EKG ---
Test Date: 2018-12-20 Test Time: 11:32:36 Marketing Database Coordinator: TALIB MEASUREMENT RESULTS: Intervals: Rate: 85 ME: 138 QRSD: 84 QT: 352 QTc: 418 Hutchinson: P: 63 ME: 138 QRS: 54 T: 25 INTERPRETIVE STATEMENTS: Normal sinus rhythm Normal ECG No previous ECG available for comparison Electronically Signed On 12-20-18 13:34:09 CDT by Nagi Nogueira
[2018-12-20] MEDS ORDERED: MAGNESIUM SULFATE 1 gm IVPB 1 GM/100 ML BAG IV ONE (14:00)
[2018-12-20] MEDS ORDERED: VANCOMYCIN/NS 1 gm 1 GM/250 ML BAG IVPB SCH (16:02)
[2018-12-20] MEDS ORDERED: IPRATROPIUM BROM 0.5MG/2.5ML NEB PRN (16:02)
[2018-12-20] MEDS ORDERED: CEFEPIME 2 GM VIAL IV SCH (16:02)
[2018-12-20] MEDS ORDERED: ONDANSETRON 4 MG/2 ML VIAL IV PRN (16:02)
[2018-12-20] MEDS ORDERED: ALBUTEROL 2.5 MG/3 ML NEB SOL NEB PRN (16:02)
[2018-12-20] MEDS ORDERED: ACETAMINOPHEN 500 MG TAB PO PRN (16:02)
[2018-12-20] MEDS: MORPHINE 2 MG/ML SYR IV PRN ×2 (17:03→21:19)
[2018-12-20] MEDS: INSULIN -REGULAR HUMAN 50 UNIT/0.5 ML ML SQ SCH ×2 (17:03→20:52)
[2018-12-20] MEDS: NA CHLORIDE 0.9% 1,000 ML IV SCH (17:04)
[2018-12-20] MEDS ORDERED: LORazepam 2 MG/ML VIAL IV PRN (17:10)
[2018-12-20] MEDS: THIAMINE HCL 100 MG TABLET PO SCH (17:36)
[2018-12-20] MEDS: FOLIC ACID 1 MG TABLET PO SCH (17:37)
[2018-12-20 18:02] VITALS: BMI 25.2
[2018-12-20] MEDS ORDERED: PANTOPRAZOLE 40 MG INJ IVP ONE (19:46)
[2018-12-20] MEDS ORDERED: SODIUM CHLORIDE 0.9% 10ML INJ IV PRN (19:46)
[2018-12-20] MEDS: CEFEPIME/SWI 2gm 2 GM/20 ML SYR IV SCH (19:59)
--- NOTE | 2018-12-20 23:11 | HP ---
Date of Admission: 12/20/2018 Consultants: Dr. Salinas. Chief Complaint: Abscess on the right hand. History Of Present Illness: Patient is a 53-year-old male with multiple comorbid conditions including diabetes, hypertension, hyperlipidemia, seizures, GERD, COPD, depression, sleep apnea, who was in his usual state of health until 3 weeks prior to admission when the patient had lesion on his 3rd digit of the right hand which scabbed over. Patient continued to pick at it, then subsequently had worsening edema, swelling, erythema of the dorsum of the hand. Patient came in on the to the ER, was evaluated and was seen on the of this month, was evaluated and given p.o. antibiotics and to follow up with his physician. However, patient had worsening of his symptoms and therefore comes into the ER for further evaluation. Patient's symptoms are constant, moderate, progressively worsening. Does report some subjective fever and chills. His workup revealed white blood cell count of 10.6, glucose was 444. X -ray of the hand showed significant swelling along the dorsal aspect of the hand progressive since the . No subcutaneous gas. No fracture. Patient was then referred for admission. When seen in the ER, he was awake, alert, oriented x3, in some mild to moderate distress. Past Medical History: Diabetes mellitus type 2, insulin requiring; hypertension ; hyperlipidemia; seizure disorder; GERD; COPD, non-oxygen dependent; major depressive disorder; obstructive sleep apnea, not on CPAP. Past Surgical History: Patient has titanium implant in the hip and the left arm. Allergies: NO KNOWN DRUG ALLERGIES. Medications: List reviewed. Social History: Patient smokes 2 to 3 cigarettes per day. Has a longstanding history of smoking alcohol. Patient was a heavy drinker in the past and drinking vodka daily. Currently drinks 6 pack in a week. Patient lives locally , recently moved from [place]. Family History: Mother has lymphoma. Father of a heart attack. Grandfather of complications from alcoholism. Review of Systems: Ten-point system reviewed, negative except as per HPI. Physical Examination: Vital Signs: Temperature 98.6, heart rate 89, blood pressure 120/81, respirations 18, O2 100% on room air. General: Awake, alert, oriented x3, in some mild distress due to pain. Appears older than his stated age, ill male. HEENT: Normocephalic, atraumatic. PERRLA. EOMI. Moist mucous membranes. Oropharynx is clear. Poor dentition. Conjunctiva is anicteric. Neck: Supple. No JVD. Trachea midline. CV: S1 and S2. Regular rate and rhythm. Peripheral pulses present. Respiratory: Moving air well bilaterally. No wheezing or stridor. No use of accessory muscles. Gastrointestinal: Abdomen is soft, nontender, nondistended. Positive bowel sounds. No guarding or rigidity. Extremities: No clubbing, cyanosis. Patient has edema of the dorsum of the right hand. No lower extremity edema. No calf tenderness. Neuro: Cranial nerves 2 through 12 intact grossly. No focal neurological deficit. Speech is normal. Skin: Right hand erythema, swelling, warm to touch. Patient has wound on the dorsal aspect of his hand with pustular drainage. Psych: Mood is somewhat anxious. Affect is congruent with mood. Insight and judgment are fair. Laboratory Data: INR 1.23, sodium 124, potassium 4.5, chloride 90, CO2 of 20, BUN 19, creatinine 1.09, glucose 444, calcium 8.7, magnesium 1.7, AST 64, ALT 52 , total bilirubin 0.5. Troponin less than 0.02. Alkaline phosphatase 268, albumin 3.2. UDS positive for opiates. WBC 10.6, H and H 11.6 and 34.2, platelets 226, neutrophils 81%. Blood cultures are pending. Imaging Studies: X-ray of the hand shows diffuse soft tissue swelling of the dorsum of the right hand progressive since comparison study. No subcutaneous gas. No underlying fractures. Chest x-ray personally reviewed shows no acute intrathoracic process. EKG shows normal sinus rhythm and rate of 85. No previous EKG for comparison. Assessment: A 53-year-old male with: 1. Right hand dorsal aspect diabetic wound, failed outpatient treatment with Bactrim. Patient was started on Bactrim on the . Dr. Salinas has been consulted. Patient will need I and D. Neurovascularly intact. Patient denies any IV drug use in the hand. 2. Cellulitis of the right hand. Continue with IV antibiotics. Obtain cultures. 3. Acute hypertension likely related to above. Patient has been bolused 1 L normal saline. We will continue to monitor. Continue with IV fluids maintenance. 4. Diabetes mellitus type 2, not well controlled. We will check hemoglobin A1c. We will start on sliding scale insulin and diabetic education. 5. Mixed hyperlipidemia. 6. History of seizure disorder. Patient is on Keppra, has not had a seizure for over a year and a half. 7. Gastroesophageal reflux disease without esophagitis. 8. Chronic obstructive pulmonary disease, non-oxygen dependent chronic bronchitis. We will continue with nebulizer treatments as needed. 9. Major depressive disorder, in remission, single episode. We will continue with selective serotonin reuptake inhibitors. 10. Obstructive sleep apnea. 11. Deep venous thrombosis prophylaxis, SCDs. No chemical anticoagulation due to impending surgery. Plan: We will admit the patient to Med-Surg, placed as inpatient. Dr. Talley did speak with Dr. Salinas who recommended admission for further evaluation and treatment, debridement in am. ALTON Voice ID: [id number] MTDD
[2018-12-20] MEDS: GABAPENTIN 300 MG CAP PO SCH (23:43)
[2018-12-21] MEDS: MORPHINE 2 MG/ML SYR IV PRN ×3 (01:43→20:30)
[2018-12-21] MEDS: NA CHLORIDE 0.9% 1,000 ML IV SCH ×4 (02:24→22:02)
[2018-12-21 06:15] LABS: Basophils % 0.2 % (0-1.3); Hematocrit 31.8 % (39.6-49.0); Lymphocytes % 11.2 % (15.3-44.8); MPV 8.4 fL (7.6-11.3)
[2018-12-21 06:28] LABS: Potassium 4.3 mmol/L (3.5-5.1)
[2018-12-21] MEDS: INSULIN -REGULAR HUMAN 50 UNIT/0.5 ML ML SQ SCH ×4 (07:30→20:48)
[2018-12-21] MEDS ORDERED: NA CHLORIDE 0.9% 1,000 ML ONE (08:22)
[2018-12-21] MEDS ORDERED: INSULIN -REGULAR HUMAN 50 UNIT/0.5 ML ML ONE ×2 (08:47→10:03)
[2018-12-21] MEDS: CEFEPIME/SWI 2gm 2 GM/20 ML SYR IV SCH ×2 (08:54→20:31)
[2018-12-21] MEDS ORDERED: MIDAZOLAM HCL 2 MG/2 ML INJ ONE (09:01)
[2018-12-21] MEDS ORDERED: FENTANYL CITR 100 MCG/2 ML ONE (09:01)
[2018-12-21] MEDS ORDERED: PROPOFOL 200 MG/20 ML VIAL IV ONE (09:01)
[2018-12-21] MEDS ORDERED: LIDOCAINE 1% MPF 5 ML VIAL ONE (09:01)
[2018-12-21] MEDS: VANCOMYCIN 1.25 GM in NA CHLORIDE 0.9% 250 ML IVPB SCH (09:11)
[2018-12-21] MEDS: HYDROMORPHONE HCL 2 MG/ML inj ONE ×4 (10:03→10:23)
[2018-12-21] MEDS ORDERED: CODEINE 30MG/APAP 300MG TAB PO PRN (10:48)
[2018-12-21] MEDS: GABAPENTIN 300 MG CAP PO SCH ×3 (11:03→20:31)
[2018-12-21] MEDS: FOLIC ACID 1 MG TABLET PO SCH (11:03)
[2018-12-21] MEDS: THIAMINE HCL 100 MG TABLET PO SCH (11:04)
[2018-12-21] MEDS: MEPERIDINE HCL 50 MG/ML IM PRN (14:32)
--- NOTE | 2018-12-21 17:02 | P.PN ---
Subjective Date of Service: 12/21/18 Subjective: Improving Patient seen and examined at bedside. No family at bedside. Chart reviewed and case discussed with nursing staff. Patient continues to go down a smoke, even after being told the. He states that the baby has a nicotine patch, he will continue to go down to smoke. Continues to complain of pain on the right hand. Ambulating appropriately. no acute events noted overnight Review of Systems 10-point ROS is otherwise unremarkable Physical Examination - Vital Signs Temperature: 97.9 F Blood Pressure: 100/65 Pulse: 96 Respirations: 18 Pulse Ox (%): 98 - Physical Exam General: Alert, In no apparent distress, Oriented x3 HEENT: Atraumatic, PERRLA, EOMI Neck: Supple, JVD not distended Respiratory: Clear to auscultation bilaterally, Normal air movement Cardiovascular: Regular rate/rhythm, Normal S1 S2 Gastrointestinal: Normal bowel sounds, No tenderness Musculoskeletal: Tenderness, Other (wound on dorsal aspect of right hand. bandaged, clear/dry/intact) Integumentary: No rashes Neurological: Normal speech, Normal tone, Normal affect Lymphatics: No axilla or inguinal lymphadenopathy Assessment And Plan - Plan A 53-year-old male with: 1. Right hand dorsal aspect diabetic wound, failed outpatient treatment with Bactrim. Patient was started on Bactrim on the . Dr. Salinas has been consulted. Patient is s/p I and D, POD#0. Neurovascularly intact. Patient denies any IV drug use in the hand. 2. Cellulitis of the right hand. Continue with IV antibiotics. pending cultures. 3. Acute hypotension likely related to above. Patient has been bolused 1 L normal saline. We will continue to monitor. Continue with IV fluids maintenance. 4. Diabetes mellitus type 2, not well controlled. Hemoglobin A1c elevated at 9.3. We will continue on sliding scale insulin and diabetic education. He will likely need to be discharged on diabetes medications. 5. Mixed hyperlipidemia. 6. History of seizure disorder. Patient is on Keppra, has not had a seizure for over a year and a half. 7. Gastroesophageal reflux disease without esophagitis. 8. Chronic obstructive pulmonary disease, non-oxygen dependent chronic bronchitis. We will continue with nebulizer treatments as needed. 9. Major depressive disorder, in remission, single episode. We will continue with selective serotonin reuptake inhibitors. 10. Obstructive sleep apnea. 11. Deep venous thrombosis prophylaxis, SCDs. No chemical anticoagulation due to impending surgery. Plan: Patient's return to the OR on for washout and closure. Continue IV antibiotics. Anticipate discharge on or Thursday after closure, if all goes well. Discharge Plan: Home
--- NOTE | 2018-12-21 20:22 | OP ---
Surgeon: Yo Salinas MD Preoperative Diagnosis: Abscess of the right dorsal hand. Postoperative Diagnosis: Abscess of the right dorsal hand. Procedure Performed: Debridement of skin, subcu tissue, I and D of abscess. Anesthesia: General. Procedure In Detail: After satisfactory induction of general anesthesia, right hand was prepped with Betadine scrub, Betadine paint, dry sterile drapes placed in usual manner. The arm was elevated and tourniquet was inflated to 250 mmHg. Hand placed on [place] table. A curvilinear incision made ove r dorsum of the hand extending from the metacarpal head of the middle finger extending down to the wr ist. A scalpel was used to excise skin, watery white pus was obtained. This was cultured and then d ecided to dissect areas of loculated pus. The wound was scrubbed with Betadine scrub brush and jet l avage, irrigated with 3 L of dilute Betadine solution. The tourniquet was released. Electrocautery was used for hemostasis. Wound was packed with half-inch NuGauze soaked in Betadine, Kerlix. Patien t tolerated the procedure well and returned to Recovery. IRAIDA/DAVIN Voice ID: [id number] Report ID: [id number]
[2018-12-21] MEDS: FERROUS SULFATE 325 MG TAB PO SCH (21:00)
[2018-12-21] MEDS ORDERED: TRAZODONE 50 MG TABLET PO PRN (21:00)
[2018-12-21] MEDS ORDERED: HOME MED 1 EA UNK (Duloxetine Hcl [Duloxetine Hcl] 1 TAB) PO SCH (21:00)
[2018-12-21] MEDS ORDERED: HOME MED 1 EA UNK (Gabapentin [Gabapentin] 1 TAB) PO SCH (21:00)
[2018-12-21] MEDS ORDERED: ALBUTEROL INHALER 60 PUFF/8 GM IH PRN (21:00)
[2018-12-21] MEDS: DULOXETINE 30 MG CAP PO SCH (21:42)
[2018-12-22] MEDS: VANCOMYCIN 1.25 GM in NA CHLORIDE 0.9% 250 ML IVPB SCH ×2 (01:46→20:27)
[2018-12-22 05:45] LABS: Basophils % 0.5 % (0-1.3); Hematocrit 29.8 % (39.6-49.0); Lymphocytes % 15.2 % (15.3-44.8); MPV 8.8 fL (7.6-11.3); RBC Red Blood Cell Count 3.44 M/uL (4.33-5.43)
[2018-12-22] MEDS: PANTOPRAZOLE 40MG TABLET PO SCH (05:45)
[2018-12-22] MEDS: NA CHLORIDE 0.9% 1,000 ML IV SCH ×3 (08:44→20:37)
[2018-12-22] MEDS ORDERED: FOLIC ACID 1 MG TABLET PO SCH (09:00)
[2018-12-22] MEDS: PIROXICAM 20 MG PO SCH (09:00)
[2018-12-22] MEDS ORDERED: PANTOPRAZOLE SODIUM PO SCH (09:00)
[2018-12-22] MEDS: LISINOPRIL 10 MG TAB PO SCH (09:00)
[2018-12-22] MEDS: INSULIN -REGULAR HUMAN 50 UNIT/0.5 ML ML SQ SCH ×4 (09:20→20:50)
[2018-12-22] MEDS: METFORMIN ER 500 MG TAB PO SCH ×2 (09:21→17:22)
[2018-12-22] MEDS: FOLIC ACID 1 MG TABLET PO SCH (09:22)
[2018-12-22] MEDS: FENOFIBRATE 160 MG TAB PO SCH (09:22)
[2018-12-22] MEDS: levETIRAcetam 500 MG TAB PO SCH (09:23)
[2018-12-22] MEDS: DULOXETINE 30 MG CAP PO SCH ×2 (09:23→20:38)
[2018-12-22] MEDS: FERROUS SULFATE 325 MG TAB PO SCH ×2 (09:23→20:38)
[2018-12-22] MEDS: ASPIRIN 81 MG CHEWABLE TABLET PO SCH (09:23)
[2018-12-22] MEDS: THIAMINE HCL 100 MG TABLET PO SCH (09:23)
[2018-12-22] MEDS: GABAPENTIN 300 MG CAP PO SCH ×3 (09:23→20:38)
[2018-12-22] MEDS: LORATADINE 10 MG TAB PO SCH (09:24)
[2018-12-22] MEDS: MORPHINE 2 MG/ML SYR IV PRN ×3 (09:28→17:22)
[2018-12-22] MEDS: CEFEPIME/SWI 2gm 2 GM/20 ML SYR IV SCH ×2 (09:42→20:28)
--- NOTE | 2018-12-22 11:24 | P.PN ---
Subjective Date of Service: 12/22/18 Subjective: No new changes, No C/O voiced Patient seen and examined at bedside. No family at bedside. Chart reviewed and case discussed with nursing staff. Patient continues to go down a smoke, even after being told the. He states that the baby has a nicotine patch, he will continue to go down to smoke. Continues to complain of pain on the right hand. Ambulating appropriately. no acute events noted overnight Review of Systems 10-point ROS is otherwise unremarkable Physical Examination - Vital Signs Temperature: 97.5 F Blood Pressure: 119/71 Pulse: 80 Respirations: 19 Pulse Ox (%): 99 - Physical Exam General: Alert, In no apparent distress, Oriented x3 HEENT: Atraumatic, PERRLA, EOMI Neck: Supple, JVD not distended Respiratory: Clear to auscultation bilaterally, Normal air movement Cardiovascular: Regular rate/rhythm, Normal S1 S2 Gastrointestinal: Normal bowel sounds, No tenderness Musculoskeletal: Other (Bnadage clean/dry/intact) Integumentary: No rashes Neurological: Normal speech, Normal tone, Normal affect Lymphatics: No axilla or inguinal lymphadenopathy Assessment And Plan - Plan A 53-year-old male with: 1. Right hand dorsal aspect diabetic wound, failed outpatient treatment with Bactrim. Patient was started on Bactrim on the . Dr. Salinas has been consulted. Patient is s/p I and D, POD#1. Neurovascularly intact. Patient denies any IV drug use in the hand. 2. Cellulitis of the right hand. Continue with IV antibiotics. pending cultures. 3. Acute hypotension likely related to above. Patient has been bolused 1 L normal saline. We will continue to monitor. Continue with IV fluids maintenance. 4. Diabetes mellitus type 2, not well controlled. Hemoglobin A1c elevated at 9.3. We will continue on sliding scale insulin and diabetic education. He will likely need to be discharged on diabetes medications. 5. Mixed hyperlipidemia. 6. History of seizure disorder. Patient is on Keppra, has not had a seizure for over a year and a half. 7. Gastroesophageal reflux disease without esophagitis. 8. Chronic obstructive pulmonary disease, non-oxygen dependent chronic bronchitis. We will continue with nebulizer treatments as needed. 9. Major depressive disorder, in remission, single episode. We will continue with selective serotonin reuptake inhibitors. 10. Obstructive sleep apnea. 11. Deep venous thrombosis prophylaxis, SCDs. No chemical anticoagulation due to impending surgery. Plan: Patient's return to the OR on for washout and closure. Continue IV antibiotics. Anticipate discharge on or Thursday after closure, if all goes well.
[2018-12-22] MEDS: MEPERIDINE HCL 50 MG/ML IM PRN ×2 (11:37→19:09)
--- NOTE | 2018-12-22 18:49 | PN ---
The patient's range of motion improving. Hand pain has gone down. Surgery tomorrow. He is n.p.o. a t midnight. The plan will be debridement site for graft closure. He was warned again not to smoke. IRAIDA/DAVIN Voice ID: [id number] Report ID: [id number]
[2018-12-22] MEDS: MUPIROCIN 2% OINT 22GM TUBE TOP SCH (20:28)
[2018-12-22] MEDS ORDERED: NA CHLORIDE 0.9% 500 ML IV ONE (22:39)
[2018-12-22] MEDS ORDERED: HYDROMORPHONE HCL 1 MG/ML INJ IV ONE (23:00)
[2018-12-23] MEDS: NA CHLORIDE 0.9% 1,000 ML IV SCH ×4 (00:24→18:20)
[2018-12-23] MEDS ORDERED: FENTANYL CITR 100 MCG/2 ML IV ONE (02:00)
[2018-12-23] MEDS: MORPHINE 2 MG/ML SYR IV PRN ×3 (04:50→20:57)
[2018-12-23 05:51] LABS: Absolute Lymphocytes (CBC) 0.9 K/uL (0.7-4.9); Basophils % 0.6 % (0-1.3); Hematocrit 30.5 % (39.6-49.0); Lymphocytes % 17.5 % (15.3-44.8); MPV 8.8 fL (7.6-11.3); RBC Red Blood Cell Count 3.45 M/uL (4.33-5.43)
[2018-12-23 06:18] LABS: BUN Blood Urea Nitrogen 8 mg/dL (7-18); Bicarbonate 28 mmol/L (21-32); Glucose Level 182 mg/dL (74-106); Potassium 4.4 mmol/L (3.5-5.1); Sodium Level 135 mmol/L (136-145)
[2018-12-23] MEDS: PANTOPRAZOLE 40MG TABLET PO SCH ×2 (06:20→12:21)
[2018-12-23] MEDS: MEPERIDINE HCL 50 MG/ML IM PRN (06:48)
[2018-12-23] MEDS: INSULIN -REGULAR HUMAN 50 UNIT/0.5 ML ML SQ SCH ×4 (07:30→21:00)
[2018-12-23] MEDS: METFORMIN ER 500 MG TAB PO SCH ×3 (08:00→17:00)
[2018-12-23] MEDS: THIAMINE HCL 100 MG TABLET PO SCH ×2 (09:00→12:15)
[2018-12-23] MEDS: ASPIRIN 81 MG CHEWABLE TABLET PO SCH (09:00)
[2018-12-23] MEDS: VANCOMYCIN 1.25 GM in NA CHLORIDE 0.9% 250 ML IVPB SCH ×2 (09:00→21:01)
[2018-12-23] MEDS: FERROUS SULFATE 325 MG TAB PO SCH ×4 (09:00→21:00)
[2018-12-23] MEDS: PIROXICAM 20 MG PO SCH (09:00)
[2018-12-23] MEDS: DULOXETINE 30 MG CAP PO SCH ×3 (09:00→21:00)
[2018-12-23] MEDS: GABAPENTIN 300 MG CAP PO SCH ×4 (09:00→21:00)
[2018-12-23] MEDS: LORATADINE 10 MG TAB PO SCH ×2 (09:00→12:15)
[2018-12-23] MEDS: MUPIROCIN 2% OINT 22GM TUBE TOP SCH ×3 (09:00→21:00)
[2018-12-23] MEDS: CEFEPIME/SWI 2gm 2 GM/20 ML SYR IV SCH ×2 (09:00→21:01)
[2018-12-23] MEDS: FENOFIBRATE 160 MG TAB PO SCH (09:00)
[2018-12-23] MEDS: FOLIC ACID 1 MG TABLET PO SCH (09:00)
[2018-12-23] MEDS: levETIRAcetam 500 MG TAB PO SCH ×2 (09:00→12:15)
[2018-12-23] MEDS: LISINOPRIL 10 MG TAB PO SCH ×2 (09:00→12:16)
[2018-12-23] MEDS ORDERED: FENTANYL CITR 100 MCG/2 ML ONE (09:12)
[2018-12-23] MEDS ORDERED: LIDOCAINE 2% MPF 5 ML VIAL ONE (09:12)
[2018-12-23] MEDS ORDERED: PROPOFOL 200 MG/20 ML VIAL IV ONE (09:12)
[2018-12-23] MEDS ORDERED: MIDAZOLAM HCL 2 MG/2 ML INJ ONE (09:12)
[2018-12-23] MEDS ORDERED: NA CHLORIDE 0.9% 1,000 ML ONE (09:40)
[2018-12-23] MEDS ORDERED: KETOROLAC 30 MG/ML INJ ONE (11:21)
[2018-12-23] MEDS: HYDROMORPHONE HCL 1 MG/ML INJ ONE ×2 (11:30→11:35)
--- NOTE | 2018-12-23 11:31 | P.PN ---
Subjective Date of Service: 12/23/18 Subjective: No new changes Patient seen and examined at bedside. No family at bedside. Chart reviewed and case discussed with nursing staff. Patient continues to go down a smoke, even after being told the. He states that the baby has a nicotine patch, he will continue to go down to smoke. Continues to complain of pain on the right hand. Ambulating appropriately. no acute events noted overnight Review of Systems 10-point ROS is otherwise unremarkable Physical Examination - Vital Signs Temperature: 97.0 F Blood Pressure: 131/87 Pulse: 77 Respirations: 16 Pulse Ox (%): 95 - Physical Exam General: Alert, In no apparent distress HEENT: Atraumatic, PERRLA, EOMI Neck: Supple, JVD not distended Respiratory: Clear to auscultation bilaterally, Normal air movement Cardiovascular: Regular rate/rhythm, Normal S1 S2 Gastrointestinal: Normal bowel sounds, No tenderness Musculoskeletal: Other (Bandage clean, dry intact.) Integumentary: No rashes Neurological: Normal speech, Normal tone, Normal affect Lymphatics: No axilla or inguinal lymphadenopathy Assessment And Plan - Plan A 53-year-old male with: 1. Right hand dorsal aspect diabetic wound, failed outpatient treatment with Bactrim. Patient was started on Bactrim on the . Dr. Salinas has been consulted. Patient is s/p I and D, POD#3. Neurovascularly intact. Patient denies any IV drug use in the hand. 2. Cellulitis of the right hand. Continue with IV antibiotics. pending cultures. 3. Acute hypotension likely related to above. Patient has been bolused 1 L normal saline. We will continue to monitor. Continue with IV fluids maintenance. 4. Diabetes mellitus type 2, not well controlled. Hemoglobin A1c elevated at 9.3. We will continue on sliding scale insulin and diabetic education. He will likely need to be discharged on diabetes medications. 5. Mixed hyperlipidemia. 6. History of seizure disorder. Patient is on Keppra, has not had a seizure for over a year and a half. 7. Gastroesophageal reflux disease without esophagitis. 8. Chronic obstructive pulmonary disease, non-oxygen dependent chronic bronchitis. We will continue with nebulizer treatments as needed. 9. Major depressive disorder, in remission, single episode. We will continue with selective serotonin reuptake inhibitors. 10. Obstructive sleep apnea. 11. Deep venous thrombosis prophylaxis, SCDs. No chemical anticoagulation due to impending surgery. Plan: Patient's return to the OR today for washout and closure. Continue IV antibiotics. Anticipate discharge home in the next 24-48 hr if clinical stability.
[2018-12-23] MEDS ORDERED: METOPROLOL TARTRATE 5 MG/5 ML INJ IV ONE (18:33)
--- NOTE | 2018-12-23 22:42 | OP ---
Surgeon: Yo Salinas MD Tugboat Pilot: Keenan. Preoperative Diagnosis: Infected dorsal hand. Postoperative Diagnosis: Infected dorsal hand. Procedure Performed: Debridement of the skin and subcutaneous tissue and range of motion. Anesthesia: General. Procedure In Detail: After satisfactory induction of general anesthesia, the hand was prepped with B etadine scrub, Betadine paint, dry sterile drapes applied in the usual manner. The arm was elevated and exsanguinated with an Esmarch. Tourniquet inflated to 250 mmHg. Hand placed on force ps and curette were used to debride skin and subcu tissue as needed. The wound was scrubbed with Bet adine scrub brush, jet lavaged, irrigated with 3 L of dilute Betadine solution. Tourniquet was relea sed. The 2 flaps were debrided of necrotic tissue on the edges back to the bleeding tissue. The wou nd was left open, packed with Betadine-soaked quarter-inch Nu Gauze and Kerlix. The patient tolerate d the procedure well and returned to Recovery. IRAIDA/DAVIN Voice ID: [id number] Report ID: [id number]
[2018-12-24] MEDS: MEPERIDINE HCL 50 MG/ML IM PRN (00:05)
[2018-12-24] MEDS ORDERED: INSULIN 70/30 100 UNITS/ML SQ ONE ×2 (00:39→03:01)
[2018-12-24] MEDS: MORPHINE 2 MG/ML SYR IV PRN (03:05)
[2018-12-24] MEDS: HYDROCODONE/APAP 10/325 TAB PO PRN ×3 (05:57→18:20)
[2018-12-24] MEDS: PANTOPRAZOLE 40MG TABLET PO SCH (05:57)
[2018-12-24] MEDS: NA CHLORIDE 0.9% 1,000 ML IV SCH ×4 (05:59→21:48)
[2018-12-24] MEDS: INSULIN -REGULAR HUMAN 50 UNIT/0.5 ML ML SQ SCH ×4 (07:30→21:00)
[2018-12-24] MEDS: LISINOPRIL 10 MG TAB PO SCH (09:00)
[2018-12-24] MEDS: PIROXICAM 20 MG PO SCH (09:00)
[2018-12-24] MEDS: LORATADINE 10 MG TAB PO SCH (09:21)
[2018-12-24] MEDS: THIAMINE HCL 100 MG TABLET PO SCH (09:21)
[2018-12-24] MEDS: FERROUS SULFATE 325 MG TAB PO SCH ×2 (09:21→21:35)
[2018-12-24] MEDS: MUPIROCIN 2% OINT 22GM TUBE TOP SCH ×2 (09:21→21:00)
[2018-12-24] MEDS: ASPIRIN 81 MG CHEWABLE TABLET PO SCH (09:21)
[2018-12-24] MEDS: levETIRAcetam 500 MG TAB PO SCH (09:22)
[2018-12-24] MEDS: DULOXETINE 30 MG CAP PO SCH ×2 (09:22→21:38)
[2018-12-24] MEDS: FOLIC ACID 1 MG TABLET PO SCH (09:22)
[2018-12-24] MEDS: METFORMIN ER 500 MG TAB PO SCH ×2 (09:22→16:35)
[2018-12-24] MEDS: FENOFIBRATE 160 MG TAB PO SCH (09:22)
[2018-12-24] MEDS: GABAPENTIN 300 MG CAP PO SCH ×3 (09:22→21:35)
[2018-12-24] MEDS: MEPERIDINE HCL 50 MG/ML IV PRN ×3 (09:25→21:35)
[2018-12-24] MEDS: CEFEPIME/SWI 2gm 2 GM/20 ML SYR IV SCH ×2 (09:32→21:39)
[2018-12-24] MEDS: VANCOMYCIN 1.25 GM in NA CHLORIDE 0.9% 250 ML IVPB SCH ×2 (09:32→21:39)
--- NOTE | 2018-12-24 11:20 | P.PN ---
Subjective Date of Service: 12/24/18 Patient seen and examined at bedside. No family at bedside. Chart reviewed and case discussed with nursing staff. Patient continues to go down a smoke, even after being told no. He is adamant on going to go down to smoke. He states that the baby has a nicotine patch, he will continue to go down to smoke. Continues to complain of pain on the right hand. no acute events noted overnight Review of Systems 10-point ROS is otherwise unremarkable Physical Examination - Vital Signs Temperature: 97.9 F Blood Pressure: 110/72 Pulse: 69 Respirations: 17 Pulse Ox (%): 96 - Physical Exam General: Alert, In no apparent distress, Oriented x3 HEENT: Atraumatic, PERRLA, EOMI Neck: Supple, JVD not distended Respiratory: Clear to auscultation bilaterally, Normal air movement Cardiovascular: Regular rate/rhythm, Normal S1 S2 Gastrointestinal: Normal bowel sounds, No tenderness Musculoskeletal: No tenderness Integumentary: Skin lesion (bandage clean/dry/intact) Neurological: Normal speech, Normal tone, Normal affect Lymphatics: No axilla or inguinal lymphadenopathy Assessment And Plan - Plan A 53-year-old male with: 1. Right hand dorsal aspect diabetic wound, failed outpatient treatment with Bactrim. Patient was started on Bactrim on the . Dr. Salinas has been consulted. Patient is s/p I and D, POD#3. Neurovascularly intact. Patient denies any IV drug use in the hand. 2. Cellulitis of the right hand. Continue with IV antibiotics. pending cultures. 3. Acute hypotension likely related to above. Patient has been bolused 1 L normal saline. We will continue to monitor. Continue with IV fluids maintenance. 4. Diabetes mellitus type 2, not well controlled. Hemoglobin A1c elevated at 9.3. We will continue on sliding scale insulin and diabetic education. He will likely need to be discharged on diabetes medications. 5. Mixed hyperlipidemia. 6. History of seizure disorder. Patient is on Keppra, has not had a seizure for over a year and a half. 7. Gastroesophageal reflux disease without esophagitis. 8. Chronic obstructive pulmonary disease, non-oxygen dependent chronic bronchitis. We will continue with nebulizer treatments as needed. 9. Major depressive disorder, in remission, single episode. We will continue with selective serotonin reuptake inhibitors. 10. Obstructive sleep apnea. 11. Nicotine dependence: Offered nicotine patch to patient but he refuses. States he will continue to go down to smoke. counseled. 11. Deep venous thrombosis prophylaxis, SCDs. No chemical anticoagulation due to impending surgery. Plan: Continue IV antibiotics. Will discuss with Dr. Salinas in regards to further plans.
[2018-12-24 12:06] LABS: Absolute Lymphocytes (CBC) 0.8 K/uL (0.7-4.9); Basophils % 0.6 % (0-1.3); Hematocrit 27.7 % (39.6-49.0); Lymphocytes % 14.8 % (15.3-44.8); MPV 8.3 fL (7.6-11.3); RBC Red Blood Cell Count 3.16 M/uL (4.33-5.43)
[2018-12-24 12:22] LABS: ALT/SGPT 33 U/L (12-78); AST/SGOT 20 U/L (15-37); Albumin 2.8 g/dL (3.4-5.0); Alkaline Phosphatase 210 U/L (45-117); BUN Blood Urea Nitrogen 10 mg/dL (7-18); Bicarbonate 29 mmol/L (21-32); Bilirubin Total 0.2 mg/dL (0.2-1.0); Glucose Level 74 mg/dL (74-106); Potassium 4.3 mmol/L (3.5-5.1); Protein, Total 6.7 g/dL (6.4-8.2); Sodium Level 134 mmol/L (136-145)
[2018-12-24] MEDS: NPH (HUMAN) 100 UNITS/ML INSULIN SQ SCH ×2 (14:00→21:00)
[2018-12-25] MEDS: HYDROCODONE/APAP 10/325 TAB PO PRN ×4 (01:13→23:46)
[2018-12-25] MEDS: MEPERIDINE HCL 50 MG/ML IV PRN ×4 (03:49→19:34)
[2018-12-25] MEDS: PANTOPRAZOLE 40MG TABLET PO SCH (06:19)
[2018-12-25 07:17] LABS: Basophils % 0.6 % (0-1.3); Hematocrit 28.8 % (39.6-49.0); Lymphocytes % 24.3 % (15.3-44.8); MPV 8.4 fL (7.6-11.3); RBC Red Blood Cell Count 3.26 M/uL (4.33-5.43)
[2018-12-25] MEDS: INSULIN -REGULAR HUMAN 50 UNIT/0.5 ML ML SQ SCH (07:30)
[2018-12-25 07:32] LABS: ALT/SGPT 33 U/L (12-78); AST/SGOT 25 U/L (15-37); Albumin 2.9 g/dL (3.4-5.0); Alkaline Phosphatase 220 U/L (45-117); BUN Blood Urea Nitrogen 9 mg/dL (7-18); Bicarbonate 28 mmol/L (21-32); Bilirubin Total 0.2 mg/dL (0.2-1.0); Glucose Level 250 mg/dL (74-106); Potassium 4.4 mmol/L (3.5-5.1); Protein, Total 6.8 g/dL (6.4-8.2); Sodium Level 133 mmol/L (136-145)
[2018-12-25] MEDS: NA CHLORIDE 0.9% 1,000 ML IV SCH ×2 (07:45→15:45)
[2018-12-25] MEDS: MUPIROCIN 2% OINT 22GM TUBE TOP SCH ×2 (09:00→20:24)
[2018-12-25] MEDS: LISINOPRIL 10 MG TAB PO SCH (09:00)
[2018-12-25] MEDS: PIROXICAM 20 MG PO SCH (09:00)
[2018-12-25] MEDS: NPH (HUMAN) 100 UNITS/ML INSULIN SQ SCH ×3 (09:00→20:13)
[2018-12-25] MEDS: FERROUS SULFATE 325 MG TAB PO SCH ×2 (09:37→20:12)
[2018-12-25] MEDS: CEFEPIME/SWI 2gm 2 GM/20 ML SYR IV SCH ×2 (09:37→20:13)
[2018-12-25] MEDS: FENOFIBRATE 160 MG TAB PO SCH (09:37)
[2018-12-25] MEDS: VANCOMYCIN 1.25 GM in NA CHLORIDE 0.9% 250 ML IVPB SCH ×2 (09:37→20:12)
[2018-12-25] MEDS: METFORMIN ER 500 MG TAB PO SCH ×2 (09:37→17:21)
[2018-12-25] MEDS: LORATADINE 10 MG TAB PO SCH (09:38)
[2018-12-25] MEDS: THIAMINE HCL 100 MG TABLET PO SCH (09:38)
[2018-12-25] MEDS: DULOXETINE 30 MG CAP PO SCH ×2 (09:38→12:33)
[2018-12-25] MEDS: FOLIC ACID 1 MG TABLET PO SCH (09:39)
[2018-12-25] MEDS: GABAPENTIN 300 MG CAP PO SCH ×3 (09:39→20:12)
[2018-12-25] MEDS: levETIRAcetam 500 MG TAB PO SCH (09:39)
[2018-12-25] MEDS: ASPIRIN 81 MG CHEWABLE TABLET PO SCH (09:39)
--- NOTE | 2018-12-25 10:47 | P.PN ---
Subjective Date of Service: 12/25/18 Subjective: No new changes Patient seen and examined at bedside. No family at bedside. Chart reviewed and case discussed with nursing staff. Patient continues to go down a smoke, even after being told no. He is adamant on going to go down to smoke. He states that even if he has a nicotine patch, he will continue to go down to smoke. Continues to complain of pain on the right hand. no acute events noted overnight Refused his insulin this morning bc he states his BS will get too low (BS was 200's) He also has been intermittently refusing BP meds bc he does not want his BP to get too low as he needs his pain medications. Review of Systems 10-point ROS is otherwise unremarkable Physical Examination - Vital Signs Temperature: 96.8 F Blood Pressure: 116/81 Pulse: 74 Respirations: 16 Pulse Ox (%): 95 - Physical Exam General: Alert, In no apparent distress, Oriented x3 HEENT: Atraumatic, PERRLA, EOMI Neck: Supple, JVD not distended Respiratory: Clear to auscultation bilaterally, Normal air movement Cardiovascular: Regular rate/rhythm, Normal S1 S2 Gastrointestinal: Normal bowel sounds, No tenderness Musculoskeletal: No tenderness Integumentary: Diabetic ulcer (Bandage clean/dry/intact) Neurological: Normal speech, Normal tone, Normal affect Lymphatics: No axilla or inguinal lymphadenopathy Assessment And Plan - Plan A 53-year-old male with: 1. Right hand dorsal aspect diabetic wound, failed outpatient treatment with Bactrim. Patient was started on Bactrim on the 18. Dr. Salinas has been consulted. Patient is s/p I and D, POD#5. Neurovascularly intact. Patient denies any IV drug use in the hand. 2. Cellulitis of the right hand. Continue with IV antibiotics. pending cultures. 3. Acute hypotension likely related to above. Patient has been bolused 1 L normal saline. We will continue to monitor. Continue with IV fluids maintenance. 4. Diabetes mellitus type 2, not well controlled. Hemoglobin A1c elevated at 9.3. We will continue on sliding scale insulin and diabetic education. He will likely need to be discharged on diabetes medications. 5. Mixed hyperlipidemia. 6. History of seizure disorder. Patient is on Keppra, has not had a seizure for over a year and a half. 7. Gastroesophageal reflux disease without esophagitis. 8. Chronic obstructive pulmonary disease, non-oxygen dependent chronic bronchitis. We will continue with nebulizer treatments as needed. 9. Major depressive disorder, in remission, single episode. We will continue with selective serotonin reuptake inhibitors. 10. Obstructive sleep apnea. 11. Nicotine dependence: Offered nicotine patch to patient but he refuses. States he will continue to go down to smoke. counseled. 11. Deep venous thrombosis prophylaxis, SCDs. No chemical anticoagulation due to impending surgery. Plan: Continue IV antibiotics. Will discuss with Dr. Salinas in regards to further plans.
[2018-12-26] MEDS: MEPERIDINE HCL 50 MG/ML IV PRN ×4 (01:25→20:34)
[2018-12-26] MEDS: PANTOPRAZOLE 40MG TABLET PO SCH (05:28)
[2018-12-26] MEDS: NA CHLORIDE 0.9% 1,000 ML IV SCH ×4 (05:52→23:45)
[2018-12-26 06:23] LABS: Absolute Lymphocytes (CBC) 0.9 K/uL (0.7-4.9); Basophils % 0.6 % (0-1.3); Lymphocytes % 23.1 % (15.3-44.8); MPV 8.2 fL (7.6-11.3); RBC Red Blood Cell Count 3.26 M/uL (4.33-5.43)
[2018-12-26 06:40] LABS: ALT/SGPT 31 U/L (12-78); AST/SGOT 25 U/L (15-37); Albumin 2.9 g/dL (3.4-5.0); Alkaline Phosphatase 234 U/L (45-117); BUN Blood Urea Nitrogen 10 mg/dL (7-18); Bicarbonate 32 mmol/L (21-32); Bilirubin Total 0.2 mg/dL (0.2-1.0); Glucose Level 145 mg/dL (74-106); Potassium 4.3 mmol/L (3.5-5.1); Protein, Total 6.9 g/dL (6.4-8.2); Sodium Level 138 mmol/L (136-145)
[2018-12-26] MEDS: PIROXICAM 20 MG PO SCH (09:00)
[2018-12-26] MEDS: DULOXETINE 30 MG CAP PO SCH (09:40)
[2018-12-26] MEDS: ASPIRIN 81 MG CHEWABLE TABLET PO SCH (09:40)
[2018-12-26] MEDS: levETIRAcetam 500 MG TAB PO SCH (09:40)
[2018-12-26] MEDS: THIAMINE HCL 100 MG TABLET PO SCH (09:40)
[2018-12-26] MEDS: HYDROCODONE/APAP 10/325 TAB PO PRN ×2 (09:40→18:35)
[2018-12-26] MEDS: FENOFIBRATE 160 MG TAB PO SCH (09:40)
[2018-12-26] MEDS: FERROUS SULFATE 325 MG TAB PO SCH ×2 (09:41→20:20)
[2018-12-26] MEDS: LORATADINE 10 MG TAB PO SCH (09:41)
[2018-12-26] MEDS: GABAPENTIN 300 MG CAP PO SCH ×3 (09:41→20:20)
[2018-12-26] MEDS: NPH (HUMAN) 100 UNITS/ML INSULIN SQ SCH ×3 (09:41→20:20)
[2018-12-26] MEDS: FOLIC ACID 1 MG TABLET PO SCH (09:41)
[2018-12-26] MEDS: LISINOPRIL 10 MG TAB PO SCH (09:42)
[2018-12-26] MEDS: VANCOMYCIN 1.25 GM in NA CHLORIDE 0.9% 250 ML IVPB SCH ×2 (09:45→20:19)
[2018-12-26] MEDS: CEFEPIME/SWI 2gm 2 GM/20 ML SYR IV SCH ×2 (09:45→20:20)
[2018-12-26] MEDS: METFORMIN ER 500 MG TAB PO SCH ×2 (10:01→18:32)
[2018-12-26] MEDS: MUPIROCIN 2% OINT 22GM TUBE TOP SCH ×2 (11:30→21:00)
--- NOTE | 2018-12-26 13:05 | P.PN ---
Subjective Date of Service: 12/26/18 Patient seen and examined at bedside. No family at bedside. Chart reviewed and case discussed with nursing staff. Patient continues to go down a smoke, even after being told no. He is adamant on going to go down to smoke. He states that even if he has a nicotine patch, he will continue to go down to smoke. Continues to complain of pain on the right hand. No acute events noted overnight Refused his insulin this morning bc he states his BS will get too low (BS was 200's) He also has been intermittently refusing BP meds bc he does not want his BP to get too low as he needs his pain medications. Review of Systems 10-point ROS is otherwise unremarkable Physical Examination - Vital Signs Temperature: 97.0 F Blood Pressure: 136/85 Pulse: 65 Respirations: 16 Pulse Ox (%): 99 - Physical Exam General: Alert, In no apparent distress HEENT: Atraumatic, PERRLA, EOMI Neck: Supple, JVD not distended Respiratory: Clear to auscultation bilaterally, Normal air movement Cardiovascular: Regular rate/rhythm, Normal S1 S2 Gastrointestinal: Normal bowel sounds, No tenderness Musculoskeletal: No tenderness Integumentary: No rashes Neurological: Normal speech, Normal tone, Normal affect Lymphatics: No axilla or inguinal lymphadenopathy - Studies Microbiology Data (last 24 hrs): 12/20/18 12:24 Blood - Blood Aerobic Blood Culture - Final No growth in 5 days. 12/20/18 12:24 Blood - Blood Anaerobic Blood Culture - Final No growth in 5 days. 12/20/18 11:52 Blood - Blood Aerobic Blood Culture - Final No growth in 5 days. 12/20/18 11:52 Blood - Blood Anaerobic Blood Culture - Final No growth in 5 days. Assessment And Plan - Plan A 53-year-old male with: 1. Right hand dorsal aspect diabetic wound, failed outpatient treatment with Bactrim. Patient was started on Bactrim on the . Dr. Salinas has been consulted. Patient is s/p I and D, POD#5. Neurovascularly intact. Patient denies any IV drug use in the hand. 2. Cellulitis of the right hand. Continue with IV antibiotics. pending cultures. 3. Acute hypotension likely related to above. Patient has been bolused 1 L normal saline. We will continue to monitor. Continue with IV fluids maintenance. 4. Diabetes mellitus type 2, not well controlled. Hemoglobin A1c elevated at 9.3. We will continue on sliding scale insulin and diabetic education. He will likely need to be discharged on diabetes medications. 5. Mixed hyperlipidemia. 6. History of seizure disorder. Patient is on Keppra, has not had a seizure for over a year and a half. 7. Gastroesophageal reflux disease without esophagitis. 8. Chronic obstructive pulmonary disease, non-oxygen dependent chronic bronchitis. We will continue with nebulizer treatments as needed. 9. Major depressive disorder, in remission, single episode. We will continue with selective serotonin reuptake inhibitors. 10. Obstructive sleep apnea. 11. Nicotine dependence: Offered nicotine patch to patient but he refuses. States he will continue to go down to smoke. counseled. 11. Deep venous thrombosis prophylaxis, SCDs. No chemical anticoagulation due to impending surgery. Plan: Continue IV antibiotics. Plan for closure on Friday December 28, 2018.
[2018-12-27] MEDS: MEPERIDINE HCL 50 MG/ML IV PRN ×3 (02:11→17:12)
[2018-12-27] MEDS: HYDROCODONE/APAP 10/325 TAB PO PRN ×3 (05:52→20:35)
[2018-12-27] MEDS: PANTOPRAZOLE 40MG TABLET PO SCH (05:52)
[2018-12-27] MEDS: NA CHLORIDE 0.9% 1,000 ML IV SCH ×6 (05:55→23:45)
[2018-12-27 06:06] LABS: Absolute Lymphocytes (CBC) 0.8 K/uL (0.7-4.9); Basophils % 0.7 % (0-1.3); Hematocrit 29.8 % (39.6-49.0); Lymphocytes % 15.2 % (15.3-44.8); MPV 7.9 fL (7.6-11.3); RBC Red Blood Cell Count 3.36 M/uL (4.33-5.43)
[2018-12-27 06:16] LABS: ALT/SGPT 28 U/L (12-78); AST/SGOT 21 U/L (15-37); Alkaline Phosphatase 197 U/L (45-117); BUN Blood Urea Nitrogen 11 mg/dL (7-18); Bicarbonate 33 mmol/L (21-32); Bilirubin Total 0.2 mg/dL (0.2-1.0); Glucose Level 118 mg/dL (74-106); Potassium 4.2 mmol/L (3.5-5.1); Protein, Total 7.1 g/dL (6.4-8.2); Sodium Level 138 mmol/L (136-145)
[2018-12-27] MEDS: METFORMIN ER 500 MG TAB PO SCH ×2 (08:30→17:06)
[2018-12-27] MEDS: FERROUS SULFATE 325 MG TAB PO SCH ×2 (08:30→20:36)
[2018-12-27] MEDS: FOLIC ACID 1 MG TABLET PO SCH (08:30)
[2018-12-27] MEDS: THIAMINE HCL 100 MG TABLET PO SCH (08:30)
[2018-12-27] MEDS: GABAPENTIN 300 MG CAP PO SCH ×3 (08:30→20:36)
[2018-12-27] MEDS: MUPIROCIN 2% OINT 22GM TUBE TOP SCH ×2 (09:00→20:46)
[2018-12-27] MEDS: PIROXICAM 20 MG PO SCH (09:00)
[2018-12-27] MEDS ORDERED: DRISDOL (VITAMIN D=ERGOCALCIFEROL) 50000 UNIT CAP PO SCH (09:00)
[2018-12-27] MEDS: NPH (HUMAN) 100 UNITS/ML INSULIN SQ SCH ×4 (09:00→20:34)
[2018-12-27] MEDS: VANCOMYCIN 1.25 GM in NA CHLORIDE 0.9% 250 ML IVPB SCH (09:00)
[2018-12-27] MEDS: LORATADINE 10 MG TAB PO SCH (09:05)
[2018-12-27] MEDS: ASPIRIN 81 MG CHEWABLE TABLET PO SCH (09:05)
[2018-12-27] MEDS: DULOXETINE 30 MG CAP PO SCH (09:05)
[2018-12-27] MEDS: CEFEPIME/SWI 2gm 2 GM/20 ML SYR IV SCH ×2 (09:05→20:36)
[2018-12-27] MEDS: levETIRAcetam 500 MG TAB PO SCH (09:05)
--- NOTE | 2018-12-27 10:55 | P.PN ---
Subjective Date of Service: 12/27/18 Subjective: No new changes Patient seen and examined at bedside. No family at bedside. Chart reviewed and case discussed with nursing staff. Patient continues to go down a smoke, even after being told no. He is adamant on going to go down to smoke. He states that even if he has a nicotine patch, he will continue to go down to smoke. Continues to complain of pain on the right hand. No acute events noted overnight Refused his insulin this morning bc he states his BS will get too low (BS was 200's) He also has been intermittently refusing BP meds bc he does not want his BP to get too low as he needs his pain medications. Review of Systems 10-point ROS is otherwise unremarkable Physical Examination - Vital Signs Temperature: 97.1 F Blood Pressure: 132/84 Pulse: 67 Respirations: 18 Pulse Ox (%): 100 - Physical Exam General: Alert, In no apparent distress, Oriented x3 HEENT: Atraumatic, PERRLA, EOMI Neck: Supple, JVD not distended Respiratory: Clear to auscultation bilaterally, Normal air movement Cardiovascular: Regular rate/rhythm, Normal S1 S2 Gastrointestinal: Normal bowel sounds, No tenderness Musculoskeletal: No tenderness Integumentary: No rashes, Other (Bandage clear, dry, intact) Neurological: Normal speech, Normal tone, Normal affect Lymphatics: No axilla or inguinal lymphadenopathy Assessment And Plan - Plan A 53-year-old male with: 1. Right hand dorsal aspect diabetic wound, failed outpatient treatment with Bactrim. Patient was started on Bactrim on the . Dr. Salinas has been consulted. Patient is s/p I and D, POD#5. Neurovascularly intact. Patient denies any IV drug use in the hand. 2. Cellulitis of the right hand. Continue with IV antibiotics. pending cultures. 3. Acute hypotension likely related to above. Patient has been bolused 1 L normal saline. We will continue to monitor. Continue with IV fluids maintenance. 4. Diabetes mellitus type 2, not well controlled. Hemoglobin A1c elevated at 9.3. We will continue on sliding scale insulin and diabetic education. He will likely need to be discharged on diabetes medications. 5. Mixed hyperlipidemia. 6. History of seizure disorder. Patient is on Keppra, has not had a seizure for over a year and a half. 7. Gastroesophageal reflux disease without esophagitis. 8. Chronic obstructive pulmonary disease, non-oxygen dependent chronic bronchitis. We will continue with nebulizer treatments as needed. 9. Major depressive disorder, in remission, single episode. We will continue with selective serotonin reuptake inhibitors. 10. Obstructive sleep apnea. 11. Nicotine dependence: Offered nicotine patch to patient but he refuses. States he will continue to go down to smoke. counseled. 11. Deep venous thrombosis prophylaxis, SCDs. No chemical anticoagulation due to impending surgery. Social work consult for diabetes resources and primary care physician set up. Plan: Continue IV antibiotics. Plan for closure on Friday December 28, 2018.
[2018-12-27] MEDS: FENOFIBRATE 160 MG TAB PO SCH (11:20)
[2018-12-27] MEDS: LISINOPRIL 10 MG TAB PO SCH (11:49)
[2018-12-27] MEDS ORDERED: VANCOMYCIN 1.25 GM in NA CHLORIDE 0.9% 250 ML IVPB SCH (21:00)
[2018-12-28] MEDS: MEPERIDINE HCL 50 MG/ML IV PRN ×2 (00:04→09:56)
[2018-12-28] MEDS: D50W 25 GM/50 ML SYRINGE IV PRN ×2 (01:54→12:35)
[2018-12-28] MEDS: HYDROCODONE/APAP 10/325 TAB PO PRN ×3 (03:21→20:55)
[2018-12-28] MEDS: PANTOPRAZOLE 40MG TABLET PO SCH (05:05)
[2018-12-28] MEDS: FOLIC ACID 1 MG TABLET PO SCH (07:39)
[2018-12-28] MEDS: GABAPENTIN 300 MG CAP PO SCH ×3 (07:39→20:53)
[2018-12-28] MEDS: NPH (HUMAN) 100 UNITS/ML INSULIN SQ SCH (07:39)
[2018-12-28] MEDS: METFORMIN ER 500 MG TAB PO SCH ×2 (07:39→17:07)
[2018-12-28] MEDS: ASPIRIN 81 MG CHEWABLE TABLET PO SCH (07:39)
[2018-12-28] MEDS: DULOXETINE 30 MG CAP PO SCH (07:39)
[2018-12-28] MEDS: LORATADINE 10 MG TAB PO SCH (07:39)
[2018-12-28] MEDS: FERROUS SULFATE 325 MG TAB PO SCH ×2 (07:39→20:52)
[2018-12-28] MEDS: PIROXICAM 20 MG PO SCH (07:40)
[2018-12-28] MEDS: THIAMINE HCL 100 MG TABLET PO SCH (07:40)
[2018-12-28] MEDS: FENOFIBRATE 160 MG TAB PO SCH (07:40)
[2018-12-28] MEDS: NA CHLORIDE 0.9% 1,000 ML IV SCH ×2 (07:45→15:45)
[2018-12-28] MEDS ORDERED: NA CHLORIDE 0.9% 1,000 ML ONE ×2 (08:28→12:45)
[2018-12-28] MEDS ORDERED: FENTANYL CITR 100 MCG/2 ML ONE ×2 (08:32→09:10)
[2018-12-28] MEDS ORDERED: LIDOCAINE 2% MPF 5 ML VIAL ONE ×2 (08:32→09:11)
[2018-12-28] MEDS ORDERED: MIDAZOLAM HCL 2 MG/2 ML INJ ONE ×2 (08:32→09:11)
[2018-12-28] MEDS ORDERED: PROPOFOL 200 MG/20 ML VIAL IV ONE ×2 (08:32→09:10)
[2018-12-28] MEDS: LISINOPRIL 10 MG TAB PO SCH (09:00)
[2018-12-28] MEDS: MUPIROCIN 2% OINT 22GM TUBE TOP SCH ×2 (09:00→20:53)
[2018-12-28] MEDS: levETIRAcetam 500 MG TAB PO SCH (09:00)
[2018-12-28] MEDS: CEFEPIME/SWI 2gm 2 GM/20 ML SYR IV SCH ×2 (09:56→20:53)
[2018-12-28] MEDS: VANCOMYCIN 1.25 GM in NA CHLORIDE 0.9% 250 ML IVPB SCH (09:57)
[2018-12-28] MEDS ORDERED: MINERAL OIL, LITE 10 ML VIAL ONE (10:47)
[2018-12-28] MEDS ORDERED: Mastisol Adhesive Liq ONE (11:38)
[2018-12-28] MEDS: HYDROMORPHONE HCL 2 MG/ML inj ONE ×4 (12:05→12:20)
--- NOTE | 2018-12-28 12:24 | P.PN ---
Subjective Date of Service: 12/28/18 Subjective: No new changes Patient seen and examined at bedside. No family at bedside. Chart reviewed and case discussed with nursing staff. Patient continues to go down a smoke, even after being told no. He is adamant on going to go down to smoke. He states that even if he has a nicotine patch, he will continue to go down to smoke. Continues to complain of pain on the right hand. No acute events noted overnight Overnight, blood sugar dropped to 50s, he was given glucagon. He continued to go down to smoke overnight. He also drank some coffee and reportedly had eaten a cinnamon roll at 3:00 a.m. even though he was aware that he was nothing teacher drink after midnight for surgery today. Review of Systems 10-point ROS is otherwise unremarkable Physical Examination - Vital Signs Temperature: 98.3 F Blood Pressure: 147/98 Pulse: 69 Respirations: 18 Pulse Ox (%): 98 - Physical Exam General: Alert, In no apparent distress HEENT: Atraumatic, PERRLA, EOMI Neck: Supple, JVD not distended Respiratory: Clear to auscultation bilaterally, Normal air movement Cardiovascular: Regular rate/rhythm, Normal S1 S2 Gastrointestinal: Normal bowel sounds, No tenderness Musculoskeletal: No tenderness Integumentary: No rashes Neurological: Normal speech, Normal tone, Normal affect Lymphatics: No axilla or inguinal lymphadenopathy Assessment And Plan - Plan A 53-year-old male with: 1. Right hand dorsal aspect diabetic wound, failed outpatient treatment with Bactrim. Patient was started on Bactrim on the . Dr. Salinas has been consulted. Patient is s/p I and D, POD#5. Neurovascularly intact. Patient denies any IV drug use in the hand. 2. Cellulitis of the right hand. Continue with IV antibiotics. pending cultures. 3. Acute hypotension likely related to above. Patient has been bolused 1 L normal saline. We will continue to monitor. Continue with IV fluids maintenance. 4. Diabetes mellitus type 2, not well controlled. Hemoglobin A1c elevated at 9.3. We will continue on sliding scale insulin and diabetic education. He will likely need to be discharged on diabetes medications. 5. Mixed hyperlipidemia. 6. History of seizure disorder. Patient is on Keppra, has not had a seizure for over a year and a half. 7. Gastroesophageal reflux disease without esophagitis. 8. Chronic obstructive pulmonary disease, non-oxygen dependent chronic bronchitis. We will continue with nebulizer treatments as needed. 9. Major depressive disorder, in remission, single episode. We will continue with selective serotonin reuptake inhibitors. 10. Obstructive sleep apnea. 11. Nicotine dependence: Offered nicotine patch to patient but he refuses. States he will continue to go down to smoke. counseled. 11. Deep venous thrombosis prophylaxis, SCDs. No chemical anticoagulation due to impending surgery. Social work consult for diabetes resources and primary care physician set up. Plan: Continue IV antibiotics. Plan for closure today. Anticipate discharge home tomorrow on oral doxycycline and clindamycin.
[2018-12-28] MEDS: MEPERIDINE HCL 25 MG/0.5 ML ONE ×2 (12:45→12:50)
[2018-12-28] MEDS ORDERED: NPH (HUMAN) 100 UNITS/ML INSULIN SQ SCH (17:00)
[2018-12-28 21:28] VITALS: O2SAT 95
[2018-12-28] MEDS ORDERED: GLUCAGON 1 MG/VIAL IM PRN (22:12)
--- NOTE | 2018-12-28 22:57 | OP ---
Surgeon: Yo Salinas MD Preoperative Diagnosis: Open wound of the right hand. Postoperative Diagnosis: Open wound of the right hand. Procedure Performed: Debridement of skin and subcutaneous tissue, flap advancement, and split-thickn ess skin graft. Anesthesia: General. Description Of Procedure: After satisfactory induction of general anesthesia, the right thigh and ri [facility] arm were prepped with Betadine scrub, Betadine paint, dry sterile drapes placed in the usual [facility] er. Arm was elevated and exsanguinated with an Esmarch. Tourniquet was inflated to 250 mmHg. Hand placed on a [place] table. Curette was used to scrape the wound cleaned as well as forceps and tenot tor scissors. The flaps were undermined and advanced. Then, the skin was harvested from the anterior lateral thigh approximately 9 cm long. It was meshed 1 and 1.5. Opsite was placed over the donor. The graft was held in place with izaiah and the flaps advanced with izaiah closure. D ressings of Xeroform and foam rubber sponge held in place with izaiah. Kerlix. Patient tolerated the procedure well and returned to Recovery. IRAIDA/DAVIN Voice ID: [id number] Report ID: [id number]
[2018-12-29] MEDS: HYDROCODONE/APAP 10/325 TAB PO PRN ×4 (02:04→15:42)
[2018-12-29] MEDS: VANCOMYCIN 1.25 GM in NA CHLORIDE 0.9% 250 ML IVPB SCH (02:06)
[2018-12-29] MEDS: PANTOPRAZOLE 40MG TABLET PO SCH (06:03)
[2018-12-29] MEDS: NA CHLORIDE 0.9% 1,000 ML IV SCH ×2 (07:45→08:45)
[2018-12-29] MEDS: PIROXICAM 20 MG PO SCH (09:00)
[2018-12-29] MEDS: GABAPENTIN 300 MG CAP PO SCH ×2 (09:32→15:41)
[2018-12-29] MEDS: FENOFIBRATE 160 MG TAB PO SCH (09:32)
[2018-12-29] MEDS: FERROUS SULFATE 325 MG TAB PO SCH (09:33)
[2018-12-29] MEDS: LISINOPRIL 10 MG TAB PO SCH (09:33)
[2018-12-29] MEDS: FOLIC ACID 1 MG TABLET PO SCH (09:33)
[2018-12-29] MEDS: ASPIRIN 81 MG CHEWABLE TABLET PO SCH (09:34)
[2018-12-29] MEDS: METFORMIN ER 500 MG TAB PO SCH (09:34)
[2018-12-29] MEDS: LORATADINE 10 MG TAB PO SCH (09:34)
[2018-12-29] MEDS: levETIRAcetam 500 MG TAB PO SCH (09:35)
[2018-12-29] MEDS: THIAMINE HCL 100 MG TABLET PO SCH (09:35)
[2018-12-29] MEDS: DULOXETINE 30 MG CAP PO SCH (09:36)
[2018-12-29] MEDS: CEFEPIME/SWI 2gm 2 GM/20 ML SYR IV SCH (09:36)
[2018-12-29] MEDS: MUPIROCIN 2% OINT 22GM TUBE TOP SCH (09:41)
[2018-12-29] MEDS: NPH (HUMAN) 100 UNITS/ML INSULIN SQ SCH ×2 (10:13→12:23)
[2018-12-29] MEDS: INSULIN -REGULAR HUMAN 50 UNIT/0.5 ML ML SQ SCH ×2 (10:21→11:30)
[2018-12-29 13:00] VITALS: BP 150/87; TEMP 97.4
--- NOTE | 2018-12-29 17:18 | P.DS ---
Admission Date: 12/20/18 Discharge Date: 12/29/18 Disposition: ROUTINE DISCHARGE Discharge Condition: GOOD Reason for Admission: Right hand wound Consultations: Dr. cartwright Brief History of Present Illness: Patient is a 53-year-old male with multiple comorbid conditions including diabetes, hypertension, hyperlipidemia, seizures, GERD, COPD, depression, sleep apnea, who was in his usual state of health until 3 weeks prior to admission when the patient had lesion on his 3rd digit of the right hand which scabbed over. Patient continued to pick at it, then subsequently had worsening edema, swelling, erythema of the dorsum of the hand. Patient came in on the to the ER, was evaluated and was seen on the of this month, was evaluated and given p.o. antibiotics and to follow up with his physician. However, patient had worsening of his symptoms and therefore comes into the ER for further evaluation. Patient's symptoms are constant, moderate, progressively worsening. Does report some subjective fever and chills. His workup revealed white blood cell count of 10.6, glucose was 444. X-ray of the hand showed significant swelling along the dorsal aspect of the hand progressive since the . No subcutaneous gas. No fracture. Patient was then referred for admission. When seen in the ER, he was awake, alert, oriented x3, in some mild to moderate distress. Hospital Course: Patient was admitted with right hand dorsal aspect diabetic wound, which failed outpatient treatment with Bactrim. Dr. Cartwright was consulted. He underwent I and D, washout, and then closure of the wound. Patient tolerated the procedures well. He continued to complain of pain throughout the stay, he was provided with IV pain control which was transitioned to oral. His cultures were positive for MRSA. It seems that patient has a history of noncompliance as he has been taking his insulin on and off. He also refused it here upon multiple [place] [facility] despite education and counseling, he continued to go downstairs to smoke. He was counseled extensively as patient has a diabetic wound with them RSA, it is not safe for him to be smoking. He would continue to go down to smoke regardless. He was very rude to the nursing staff and refused multiple medications except for his pain medications. He does have somebody that was bringing him cigarettes here in the hospital. But when told that he would be discharged, he stated that he is aware to go and he does not want to leave the hospital. He was counseled and educated on wound care changes dressing as well as care. Social work was consulted for diabetes resources and primary care physicians setup. He was provided a list of primary care physicians on the area that accepts his insurance. He was also counseled on proper care for his diabetes, which seems to be uncontrolled. Likely because patient not taking insulin as he is supposed to. His diagnoses and treatment plan was explained to him. All questions were answered. He was medically stable for discharge. He was then discharged home in a safe and stable manner after he was cleared for discharge by . Vital Signs/Physical Exam: Temp Pulse Resp BP Pulse Ox 97.4 F 69 16 150/87 H 98 12/29/18 12:00 12/29/18 12:00 12/29/18 15:42 12/29/18 12:00 12/29/18 15:42 General: Alert, In no apparent distress, Oriented x3 HEENT: Atraumatic, PERRLA, EOMI Neck: Supple, JVD not distended Respiratory: Clear to auscultation bilaterally, Normal air movement Cardiovascular: Regular rate/rhythm, Normal S1 S2 Gastrointestinal: Normal bowel sounds, No tenderness Musculoskeletal: No tenderness Integumentary: Other (Wound on hand bandaged, clean/dry/intact; graft site noted , ) Neurological: Normal speech, Normal tone, Normal affect Lymphatics: No axilla or inguinal lymphadenopathy Laboratory Data at Discharge: WBC 5.1 K/uL (4.3-10.9) D 12/27/18 05:20 Hgb 10.1 g/dL (13.6-17.9) L 12/27/18 05:20 Hct 29.8 % (39.6-49.0) L 12/27/18 05:20 Plt Count 206 K/uL (152-406) 12/27/18 05:20 PT 14.4 SECONDS (9.5-12.5) H 12/20/18 11:52 INR 1.23 12/20/18 11:52 Sodium 138 mmol/L (136-145) 12/27/18 05:20 Potassium 4.2 mmol/L (3.5-5.1) 12/27/18 05:20 BUN 11 mg/dL (7-18) 12/27/18 05:20 Creatinine 0.77 mg/dL (0.55-1.3) 12/28/18 07:50 Glucose 118 mg/dL (74-106) H 12/27/18 05:20 Magnesium 1.7 mg/dL (1.8-2.4) L 12/20/18 11:52 Total Bilirubin 0.2 mg/dL (0.2-1.0) 12/27/18 05:20 AST 21 U/L (15-37) 12/27/18 05:20 ALT 28 U/L (12-78) 12/27/18 05:20 Alkaline Phosphatase 197 U/L (45-117) H 12/27/18 05:20 Home Medications: Albuterol Sulfate [Proair Hfa] 2 puff IH Q4HP PRN 12/20/18 Aspirin Chewable [Aspirin Chewable*] 1 tab PO DAILY 12/20/18 Duloxetine HCl 1 tab PO BEDTIME 12/20/18 Duloxetine HCl 1 tab PO DAILY 12/20/18 Ergocalciferol (Vitamin D2) [Vitamin D2] 50,000 unit PO SEECOM 12/20/18 Fenofibrate 1 tab PO DAILY 12/20/18 Ferrous Sulfate [Ferrous Sulfate*] 1 tab PO BID 12/20/18 Folic Acid 1 tab PO DAILY 12/20/18 Gabapentin 1 tab PO TID 12/20/18 Lisinopril 1 tab PO DAILY 12/20/18 Loratadine [Claritin*] 10 mg PO DAILY 12/20/18 Metformin ER [Glucophage ER*] 1,000 mg PO BIDWM 12/20/18 Pantoprazole Sodium 1 tab PO DAILY 12/20/18 Piroxicam 20 mg PO DAILY 12/20/18 Trazodone [Desyrel*] 1 tab PO BEDTIME PRN 12/20/18 levETIRAcetam [Keppra*] 1,000 mg PO DAILY 12/20/18 Blood Sugar Diagnostic [Onetouch Verio] 1 each MC DAILY #100 strip 12/29/18 Clindamycin HCl 300 mg PO Q6H #56 capsule 12/29/18 Doxycycline Hyclate 100 mg PO BID #28 tablet. 12/29/18 Doxycycline Hyclate 200 mg PO BID 14 Days #56 capsule 12/29/18 Insulin NPH Human [Novolin N (Humulin N)*] 35 units SQ TIDWM #500 ml 12/29/18 Lancets [Onetouch Lancets] 1 each MC DAILY #100 each 12/29/18 Mupirocin Oint [Bactroban 2% Ointment*] 1 appl TOP BID #1 tube 12/29/18 Tramadol HCl [Ultram] 50 mg PO Q6HP PRN #20 tablet 12/29/18 New Medications: Tramadol HCl [Ultram] 50 mg PO Q6HP PRN #20 tablet PRN Reason: Pain Scale 5-7 (Moderate) Blood Sugar Diagnostic [Onetouch Verio] 1 each MC DAILY #100 strip Clindamycin HCl 300 mg PO Q6H #56 capsule Doxycycline Hyclate 100 mg PO BID #28 tablet. Insulin NPH Human [Novolin N (Humulin N)*] 35 units SQ TIDWM #500 ml Lancets [Onetouch Lancets] 1 each MC DAILY #100 each Mupirocin Oint [Bactroban 2% Ointment*] 1 appl TOP BID #1 tube Patient Discharge Instructions: Please follow up with Dr. Cartwright next Thursday. Return to the Emergency room for worsening symptoms. Diet: ADA Activity: Ad sukhwinder Followup: Yo Cartwright MD [ACTIVE - CAN ADMIT] - Time spent managing pt's care (in minutes): 60
== END 2018-12-29 16:40 | disposition home or self-care (01) | DRG 623 ==
LOC: ER 10:42 → ERHOLD 12:25 → 2ND 16:03
PROVIDERS: ADMIT Family Medicine; ATTEND Family Medicine
PROC: 0JBJ0ZZ Excision of Right Hand Subcutaneous Tissue and Fascia, Open Approach (ICD-10-PCS; 2018-12-21)
PROC: 0JBJ0ZZ Excision of Right Hand Subcutaneous Tissue and Fascia, Open Approach (ICD-10-PCS; 2018-12-23)
PROC: 0HXFXZZ Transfer Right Hand Skin, External Approach (ICD-10-PCS; principal; 2018-12-28 09:00)
DX: E11.628 Type 2 diabetes mellitus with other skin complications (principal); L03.113 Cellulitis of right upper limb; I10 Essential (primary) hypertension; K21.9 Gastro-esophageal reflux disease without esophagitis; J44.9 Chronic obstructive pulmonary disease, unspecified; F32.9 Major depressive disorder, single episode, unspecified; E11.65 Type 2 diabetes mellitus with hyperglycemia; E78.2 Mixed hyperlipidemia; G40.909 Epilepsy, unspecified, not intractable, without status epilepticus; F17.210 Nicotine dependence, cigarettes, uncomplicated; G47.30 Sleep apnea, unspecified; Z71.6 Tobacco abuse counseling
CPT/HCPCS: 36415; 71045; 80048; 80053; 80076; 80202; 80307; 82565; 82947; 82962; 83036; 83735; 83880; 84484; 85025; 85610; 87040; 87070; 87075; 87077; 87186; 87205; 88304; 88305; 90714; 93005; 94760; 96365; 96366; 96368; 96372; 96375; 99285; C9113; J0295; J0692; J1170; J2175; J2250; J2270; J2405; J2543; J2704; J3010; J3370; J3475; J7030

== ENCOUNTER 2019-01-08 19:12 | Emergency (ER) | payer OTHER ==
[2019-01-08] MEDS ORDERED: HYDROCODONE/APAP 10/325 TAB ONE (20:11)
[2019-01-08] MEDS ORDERED: NA CHLORIDE 0.9% 1,000 ML ONE ×2 (20:11→21:01)
[2019-01-08] MEDS ORDERED: FAMOTIDINE 20 MG/2 ML VIAL IV ONE (20:21)
[2019-01-08 20:52] LABS: Potassium 5.2 mmol/L (3.5-5.1)
[2019-01-08] MEDS ORDERED: INSULIN -REGULAR HUMAN 50 UNIT/0.5 ML ML ONE (21:03)
--- NOTE | 2019-01-08 22:24 | ER ---
Nurse's Notes [facility] Name: Frandy Gomes Age: 53 yrs Sex: Male : 1965 Arrival Date: 01/08/2019 Time: 19:15 Bed 27 Private MD: Diagnosis: Pain in right hand-post surgical pain;Pain in left hip;Hyperglycemia, unspecified;Patient's other noncompliance with medication regimen Presentation: 01/08 19:16 Presenting complaint: EMS states: C/O pain on R hand S/P Surgical intervention a week wh ago. Pt states he had a procedure done here last week and wasn't able to get his prescriptions. Pain is 10/10 on a pain scale. Pt has Hx of Diabetes, HTN and GERD not taking his home meds. Pt is also C/O of hip pain and acid reflux. EMS checked BS and states it was HIGH from glucometer reading. Transition of care: patient was not received from another setting of care. Onset of symptoms was January 08, 2019. Risk Assessment: Do you want to hurt yourself or someone else? Patient reports no desire to harm self or others. Initial Sepsis Screen: Does the patient meet any 2 criteria? No. Patient's initial sepsis screen is negative. Initial Sepsis Screen: Does the patient have a suspected source of infection? Yes: Skin breakdown/wound. Care prior to arrival: BS checked with reading of HIGH from EMS glucometer. 19:16 [facility] 19:16 Acuity: VARINDER 3 Triage Assessment: 19:25 General: Appears in no apparent distress. unkempt. 19:25 General: Behavior is cooperative, appropriate for age. Historical: - Allergies: 19:25 No Known Allergies; - Home Meds: 19:25 Unable to obtain [Active]; - PMHx: 19:25 COPD; Diabetes - NIDDM; GERD; Hyperlipidemia; Hypertension; Seizures; titanium marjorie in arm and hip; - Immunization history:: Adult Immunizations not up to date. - Social history:: Smoking status: Patient uses tobacco products. - Ebola Screening: : Patient negative for fever greater than or equal to 101.5 degrees Fahrenheit, and additional compatible Ebola Virus Disease symptoms Patient denies exposure to infectious person. Screenin:21 Abuse screen: Denies threats or abuse. Denies injuries from another. Nutritional screening: No deficits noted. Tuberculosis screening: No symptoms or risk factors identified. Fall Risk None identified. Assessment: 19:26 General: Appears in no apparent distress. Behavior is cooperative, appropriate for age. wh Pain: Complains of pain in right hand and left hip Pain does not radiate. Pain currently is 10 out of 10 on a pain scale. Quality of pain is described as aching, Pain began 2-3 days ago. Neuro: Level of Consciousness is awake, alert, obeys commands, Oriented to person, place, time, situation, Appropriate for age. Cardiovascular: Heart tones S1 S2. Respiratory: Airway is patent Respiratory effort is even, unlabored, Respiratory pattern is regular, symmetrical, Breath sounds are clear bilaterally. GI: Abdomen is flat, non-distended. : No signs and/or symptoms were reported regarding the genitourinary system. EENT: No signs and/or symptoms were reported regarding the EENT system. Derm: Surgical wound S/P procedure on R Hand. Musculoskeletal: Circulation, motion, and sensation intact. 20:33 Reassessment: Patient appears in no apparent distress at this time. No changes from previously documented assessment. Patient and/or family updated on plan of care and expected duration. Pain level reassessed. Patient is alert, oriented x 3, equal unlabored respirations, skin warm/dry/pink. C/O Acid reflux Provider notified. 21:45 Reassessment: Patient appears in no apparent distress at this time. No changes from previously documented assessment. Patient and/or family updated on plan of care and expected duration. Pain level reassessed. Patient is alert, oriented x 3, equal unlabored respirations, skin warm/dry/pink. Patient denies pain at this time. Patient states feeling better. Patient states symptoms have improved. 23:03 Reassessment: Patient appears in no apparent distress at this time. No changes from previously documented assessment. Patient and/or family updated on plan of care and expected duration. Pain level reassessed. Patient is alert, oriented x 3, equal unlabored respirations, skin warm/dry/pink. Patient denies pain at this time. Patient states feeling better. Patient states symptoms have improved. Vital Signs: 19:22 BP 124 / 90; Pulse 81; Resp 18; Temp 99.2; Pulse Ox 100% on R/A; 19:35 Weight 75.3 kg; Height 5 ft. 6 in. (167.64 cm); 20:33 BP 104 / 71; Pulse 80; Resp 18; Pulse Ox 100% on R/A; wh 22:30 BP 110 / 76; Pulse 78; Resp 18; Pulse Ox 99% on R/A; 19:35 Body Mass Index 26.79 (75.30 kg, 167.64 cm) ED Course: 19:15 Patient arrived in ED. bb 19:16 Soraya Aguirre is Primary Nurse. wh 19:18 Aamir Sung NP is PHCP. pm1 19:18 Jamey Monroy MD is Attending Physician. pm1 19:21 Triage completed. 19:22 Patient has correct armband on for positive identification. Placed in gown. Bed in low wh position. Call light in reach. Side rails up X 1. Pulse ox on. NIBP on. 19:22 Patient Wound cleaned. 20:11 Radiology exam delayed due to PT NEEDED TO USE THE RESTROOM FIRST AND WANTED PAIN MEDS mh1 FIRST. WILL TRY BACK IN 20 MIN. 20:48 Hip Left 2 View XRAY In Process Unspecified. EDMS 22:24 Yo Salinas MD is Referral Physician. pm1 Administered Medications: 20:17 Drug: NS 0.9% 1000 ml Route: IV; Rate: 1000 ml; Site: right forearm; 23:06 Follow up: Response: No adverse reaction; IV Status: Completed infusion 20:18 Drug: [place] 10 mg-325 mg 1 tabs Route: PO; 23:06 Follow up: Response: No adverse reaction; Pain is decreased; RASS: Alert and Calm (0) 20:34 Drug: Pepcid 20 mg Route: IVP; Site: right forearm; 23:06 Follow up: Response: No adverse reaction 21:11 Drug: Insulin Regular Human 10 units {Co-Signature: aj1 (Payton Whelan RN).} Route: IVP; Site: right forearm; 23:07 Follow up: Response: No adverse reaction; Blood sugar is lowered 21:26 Drug: NS 0.9% 1000 ml Route: IV; Rate: 1000 ml; Site: right forearm; 23:07 Follow up: Response: No adverse reaction; IV Status: Completed infusion Point of Care Testing: Blood Glucose: 19:35 Blood Glucose: High (>450 mg/dL); 22:05 Blood Glucose: 347 mg/dL; 19:35 NOtified Provider Ranges: Outcome: 22:23 Discharge ordered by . pm1 23:08 Patient left the ED. Signatures: Dispatcher [employer] EDMary Holcomb 1 Negrita Warner RN RN bb Aamir Sung NP [employer] OPERATOR pm1 Soraya Aguirre Payton Whelan RN aj1
--- NOTE | 2019-01-08 22:24 | EDPHYS ---
Physician Documentation [facility] Name: Frandy Gomes Age: 53 yrs Sex: Male : 1965 Arrival Date: 01/08/2019 Time: 19:15 Bed 27 Private MD: ED Physician Jamey Monroy HPI: 01/08 19:36 This 53 yrs old Male presents to ER via EMS with complaints of Post Surgical pm1 Pain to Right Hand. 19:36 Right hand pain post debridement for cellulitis to dorsal aspect of right hand. The pm1 patient has been recently been admitted at [facility], was discharged last week. Patient was admitted to hospital on 12/20/2018 for failed cellulitis to right hand post failed outpatient antibiotic therapy. Right hand debridement by Dr. Salinas and patient was discharged home on 12/29/2018. Patient's prescriptions were called into [facility] pharmacy on discharge, but patient reports that he has not picked up any of his medications and is not taking any of his home medications. Patient presents to ER today with complaints of post surgical pain to right hand. He has chronic pain to left hip and would like it evaluated also . Historical: - Allergies: 19:25 No Known Allergies; - Home Meds: 19:25 Unable to obtain [Active]; - PMHx: 19:25 COPD; Diabetes - NIDDM; GERD; Hyperlipidemia; Hypertension; Seizures; titanium marjorie in arm and hip; - Immunization history:: Adult Immunizations not up to date. - Social history:: Smoking status: Patient uses tobacco products. - Ebola Screening: : Patient negative for fever greater than or equal to 101.5 degrees Fahrenheit, and additional compatible Ebola Virus Disease symptoms Patient denies exposure to infectious person. ROS: 19:36 Constitutional: Negative for fever, chills, and weight loss, Eyes: Negative for injury, pm1 pain, redness, and discharge, ENT: Negative for injury, pain, and discharge, Neck: Negative for injury, pain, and swelling, Cardiovascular: Negative for chest pain, palpitations, and edema, Respiratory: Negative for shortness of breath, cough, wheezing, and pleuritic chest pain, Abdomen/GI: Negative for abdominal pain, nausea, vomiting, diarrhea, and constipation, Back: Negative for injury and pain. 19:36 Skin: Negative for injury, rash, and discoloration, Neuro: Negative for headache, weakness, numbness, tingling, and seizure. 19:36 MS/extremity: Positive for pain, of the right hand and left hip, Negative for decreased range of motion, deformity. Exam: 19:36 Constitutional: This is a well developed, well nourished patient who is awake, alert, pm1 and in no acute distress. Head/Face: Normocephalic, atraumatic. Eyes: Pupils equal round and reactive to light, extra-ocular motions intact. Lids and lashes normal. Conjunctiva and sclera are non-icteric and not injected. Cornea within normal limits. Periorbital areas with no swelling, redness, or edema. ENT: Nares patent. No nasal discharge, no septal abnormalities noted. Tympanic membranes are normal and external auditory canals are clear. Oropharynx with no redness, swelling, or masses, exudates, or evidence of obstruction, uvula midline. Mucous membranes moist. Neck: Trachea midline, no thyromegaly or masses palpated, and no cervical lymphadenopathy. Supple, full range of motion without nuchal rigidity, or vertebral point tenderness. No Meningismus. Chest/axilla: Normal chest wall appearance and motion. Nontender with no deformity. No lesions are appreciated. Cardiovascular: Regular rate and rhythm with a normal S1 and S2. No gallops, murmurs, or rubs. Normal PMI, no JVD. No pulse deficits. Respiratory: Lungs have equal breath sounds bilaterally, clear to auscultation and percussion. No rales, rhonchi or wheezes noted. No increased work of breathing, no retractions or nasal flaring. Abdomen/GI: Soft, non-tender, with normal bowel sounds. No distension or tympany. No guarding or rebound. No evidence of tenderness throughout. Back: No spinal tenderness. No costovertebral tenderness. Full range of motion. 19:36 Musculoskeletal/extremity: Extremities: grossly normal except: noted in the left hip: tenderness, There is no evidence of decreased ROM, deformity, swelling, noted in the right hand: no evidence of cellulitis, abscess, drainage. 19:36 Skin: Wound recheck: Dorsal aspect of right hand without any signs of cellulitis, warmth dehiscence or discharge. No decreased range of motion of fingers. Vital Signs: 19:22 BP 124 / 90; Pulse 81; Resp 18; Temp 99.2; Pulse Ox 100% on R/A; 19:35 Weight 75.3 kg; Height 5 ft. 6 in. (167.64 cm); wh 20:33 BP 104 / 71; Pulse 80; Resp 18; Pulse Ox 100% on R/A; wh 22:30 BP 110 / 76; Pulse 78; Resp 18; Pulse Ox 99% on R/A; wh 19:35 Body Mass Index 26.79 (75.30 kg, 167.64 cm) MDM: 19:24 Patient medically screened. pm1 19:27 Data reviewed: vital signs. Data interpreted: Pulse oximetry: on room air is 100 %. pm1 Interpretation: normal. 22:23 Counseling: I had a detailed discussion with the patient and/or guardian regarding: the pm1 historical points, exam findings, and any diagnostic results supporting the discharge/admit diagnosis, lab results, radiology results, the need for outpatient follow up, to return to the emergency department if symptoms worsen or persist or if there are any questions or concerns that arise at home. 22:55 ED course: Patient requesting tramadol instead of tylenol #3. pm1 01/08 19:35 Order name: BMP; Complete Time: 21:05 pm1 12 22:05 Order name: Glucometer Result Nova; Complete Time: 22:26 01/08 19:35 Order name: Hip Left 2 View XRAY pm1 01/08 19:35 Order name: IV Saline Lock; Complete Time: 20:18 pm1 Administered Medications: 20:17 Drug: NS 0.9% 1000 ml Route: IV; Rate: 1000 ml; Site: right forearm; 23:06 Follow up: Response: No adverse reaction; IV Status: Completed infusion 20:18 Drug: Marshall 10 mg-325 mg 1 tabs Route: PO; 23:06 Follow up: Response: No adverse reaction; Pain is decreased; RASS: Alert and Calm (0) 20:34 Drug: Pepcid 20 mg Route: IVP; Site: right forearm; 23:06 Follow up: Response: No adverse reaction 21:11 Drug: Insulin Regular Human 10 units {Co-Signature: aj1 (Payton Whelan RN).} Route: IVP; Site: right forearm; 23:07 Follow up: Response: No adverse reaction; Blood sugar is lowered 21:26 Drug: NS 0.9% 1000 ml Route: IV; Rate: 1000 ml; Site: right forearm; 23:07 Follow up: Response: No adverse reaction; IV Status: Completed infusion Point of Care Testing: Blood Glucose: 19:35 Blood Glucose: High (>450 mg/dL); 22:05 Blood Glucose: 347 mg/dL; 19:35 NOtified Provider Ranges: Critical Glucose Levels:Adult <50 mg/dl or >400 mg/dl <40 mg/dl or >180 mg/dl Disposition: 01/09 04:42 Co-signature as Attending Physician, Jamey Monroy MD. Disposition: 01/08/19 22:23 Discharged to Home. Impression: Pain in right hand - post surgical pain, Pain in left hip, Hyperglycemia, unspecified, Patient's other noncompliance with medication regimen. - Condition is Stable. - Discharge Instructions: Hyperglycemia, Blood Glucose Monitoring, Adult, Hip Pain, Surgical Wound Debridement, Care After. - Prescriptions for Tramadol 50 mg Oral Tablet - take 1 tablet by ORAL route every 8 hours as needed; 12 tablet. - Medication Reconciliation Form, Thank You Letter, Antibiotic Education, Prescription Opioid Use form. - Follow up: Emergency Department; When: As needed; Reason: Worsening of condition. Follow up: Private Physician; When: 2 - 3 days; Reason: Recheck today's complaints, Continuance of care, Re-evaluation by your physician. Follow up: Yo Salinas MD; When: 2 - 3 days; Reason: Recheck today's complaints, Continuance of care, Re-evaluation by your physician. - Problem is new. - Symptoms have improved. Signatures: Dispatcher [employer] EDMS Davis Conde RN RN la1 Aamir Sung, ARLETTE [employer]BERING TE[employer]ER pm1 Soraya Aguirre Jamey Monroy MD MD Payton Whelan RN aj1 Corrections: (The following items were deleted from the chart) 01/08 22:24 22:23 01/08/2019 22:23 Discharged to Home. Impression: Pain in right hand - post pm1 surgical pain; Pain in left hip; Hyperglycemia, unspecified; Patient's other noncompliance with medication regimen. Condition is Stable. Forms are Medication Reconciliation Form, Thank You Letter, Antibiotic Education, Prescription Opioid Use. Follow up: Emergency Department; When: As needed; Reason: Worsening of condition. Follow up: Private Physician; When: 2 - 3 days; Reason: Recheck today's complaints, Continuance of care, Re-evaluation by your physician. Problem is new. Symptoms have improved. pm1 23:08 22:24 01/08/2019 22:23 Discharged to Home. Impression: Pain in right hand - post wh surgical pain; Pain in left hip; Hyperglycemia, unspecified; Patient's other noncompliance with medication regimen. Condition is Stable. Discharge Instructions: Hyperglycemia, Blood Glucose Monitoring, Adult, Hip Pain. Forms are Medication Reconciliation Form, Thank You Letter, Antibiotic Education, Prescription Opioid Use. Follow up: Emergency Department; When: As needed; Reason: Worsening of condition. Follow up: Private Physician; When: 2 - 3 days; Reason: Recheck today's complaints, Continuance of care, Re-evaluation by your physician. Follow up: Yo Salinas; When: 2 - 3 days; Reason: Recheck today's complaints, Continuance of care, Re-evaluation by your physician. Problem is new. Symptoms have improved. pm1
[2019-01-08 23:12] VITALS: TEMP 99.2
[2019-01-08 23:14] VITALS: BP 110/76; O2SAT 99
--- NOTE | 2019-01-09 08:01 | RAD REPORT ---
EXAM DESCRIPTION: RAD - Hip Left 2 View - 01/08/2019 9:00 pm CLINICAL HISTORY: Left hip pain, prior fracture COMPARISON: None. FINDINGS: AP and frogleg views of the left hip were obtained. Surgical hardware is in place from danie or fracture repair. No hardware fracture. No acute fracture changes are identifiable. There is subtle slight flattening of the contour of the femoral head along the superior and superolateral margin. Th ere is relative lucency in the femoral head along the superolateral margin. Early AVN changes are pos sible. There are mild degenerative changes along the superior acetabular rim. Movement of the hardwar e cannot be evaluated in the absence of comparison. No periosteal reaction. No suspicious soft tissue finding. IMPRESSION: No acute fracture changes are seen. No acute hardware finding suspected. Subtle contour changes and lucency in the superior and superolateral aspect of the femoral head could indicate developing AVN.
== END 2019-01-08 23:08 | disposition home or self-care (01) ==
LOC: ER 19:12
DX: M25.552 Pain in left hip (principal); E11.65 Type 2 diabetes mellitus with hyperglycemia; I10 Essential (primary) hypertension; Z91.14 Patient's other noncompliance with medication regimen; Z72.0 Tobacco use
CPT/HCPCS: 96361; 80048; 36415; 82962 ×2; 73502; 96375; 96374; 99284; J7030 ×2

== ENCOUNTER 2019-04-07 08:11 | Day surgery (SDC) | payer OTHER ==
--- OUTSIDE RECORDS SUMMARY | 2019-04-07 08:15 | XMS REPORT ---
:1965 [facility] [address] [place] [address] Care Team Providers Name Role Phone Unavailable [...] Facility Department ID 2018-09-03 2018-09-03 Emergency E [facility] [id number] 00:28:00 00:28:00 2018-05-12 2018-05-12 Outpatient [facility] [id number] 00:00:00 00:00:00 2018-04-13 2018-04-13 Outpatient [facility] [id number] 00:00:00 00:00:00 2018-02-23 2018-02-23 Outpatient [facility] [id number] 00:00:00 00:00:00 2018-02-19 2018-02-19 Outpatient [facility] [id number] 00:00:00 00:00:00 2018-02-16 2018-02-16 Outpatient [facility] [id number] 00:00:00 00:00:00 2018-01-25 2018-01-25 Outpatient [facility] [id number] 00:00:00 00:00:00 2018-01-22 2018-01-22 Outpatient [facility] [id number] 15:47:04 15:47:04 2018-01-20 2018-01-20 Outpatient [facility] [id number] 00:00:00 00:00:00 2018-01-19 2018-01-19 Outpatient [facility] [id number] 15:13:11 15:13:11 2018-01-19 2018-01-19 Outpatient [facility] [id number] 00:00:00 00:00:00 2017-12-17 2017-12-17 Outpatient [facility] [id number] 00:00:00 00:00:00 2017-11-10 2017-11-10 Outpatient [facility] [id number] 00:00:00 00:00:00 2017-10-29 2017-10-29 Outpatient [facility] [id number] 00:00:00 00:00:00 2017-10-06 2017-10-06 Outpatient [facility] [id number] 00:00:00 00:00:00 2017-09-15 2017-09-15 Outpatient [facility] [id number] 09:41:29 09:41:29 2017-08-27 2017-08-27 Outpatient [facility] [id number] 08:29:31 08:29:31 2017-08-26 2017-08-26 Outpatient [facility] [id number] 00:00:00 00:00:00 2017-08-21 2017-08-21 Outpatient [facility] [id number] 13:11:02 13:11:02 2017-08-17 2017-08-17 Outpatient [facility] [id number] 00:00:00 00:00:00 2017-08-13 2017-08-13 Outpatient [facility] [id number] 00:00:00 00:00:00 2017-07-10 2017-07-10 Outpatient [facility] [id number] 11:10:51 11:10:51 2017-07-10 2017-07-10 Outpatient [facility] [id number] 10:58:18 10:58:18 2017-07-10 2017-07-10 Outpatient [facility] [id number] 10:27:13 10:27:13 2017-07-09 2017-07-09 Outpatient [facility] [id number] 00:00:00 00:00:00 2017-07-08 2017-07-08 Outpatient [facility] [id number] 09:18:37 09:18:37 2017-07-08 2017-07-08 Outpatient [facility] [id number] 00:00:00 00:00:00 2017-07-08 2017-07-08 Outpatient [facility] [id number] 00:00:00 00:00:00 2017-07-08 2017-07-08 Outpatient [facility] [id number] 00:00:00 00:00:00 2017-06-30 2017-06-30 Outpatient [facility] [id number] 00:00:00 00:00:00 2017-06-29 2017-06-29 Outpatient [facility] [id number] 00:00:00 00:00:00 2017-06-18 2017-06-18 Outpatient [facility] [id number] 00:00:00 00:00:00 2017-05-07 2017-05-07 Outpatient [facility] [id number] 00:00:00 00:00:00 2017-04-21 2017-04-21 Outpatient [facility] [id number] 10:37:11 10:37:11 2017-04-21 2017-04-21 Outpatient [facility] [id number] 10:22:34 10:22:34 2017-04-21 2017-04-21 Outpatient [facility] [id number] 00:00:00 00:00:00 2017-04-14 2017-04-14 Outpatient [facility] [id number] 00:00:00 00:00:00 2017-04-14 2017-04-14 Outpatient [facility] [id number] 00:00:00 00:00:00 2017-02-23 2017-02-23 Outpatient [facility] [id number] 00:00:00 00:00:00 2017-02-18 2017-02-18 Outpatient [facility] [id number] 00:00:00 00:00:00 2017-02-18 2017-02-18 Outpatient [facility] [id number] 00:00:00 00:00:00 2017-02-11 2017-02-11 Outpatient [facility] [id number] 10:36:34 10:36:34 2017-02-03 2017-02-03 Outpatient [facility] [id number] 00:00:00 00:00:00 2017-01-29 2017-01-29 Outpatient [facility] [id number] 00:00:00 00:00:00 2017-01-20 2017-01-20 Outpatient [facility] [id number] 00:00:00 00:00:00 2017-01-06 2017-01-06 Outpatient [facility] [id number] 00:00:00 00:00:00 2016-12-29 2016-12-29 Outpatient [facility] [id number] 00:00:00 00:00:00 2016-12-22 2016-12-22 Outpatient [facility] [id number] 00:00:00 00:00:00 2016-12-05 2016-12-05 Outpatient [facility] [id number] 00:00:00 00:00:00 2016-11-25 2016-11-25 Outpatient [facility] [id number] 00:00:00 00:00:00 2016-11-07 2016-11-07 Outpatient [facility] [id number] 00:00:00 00:00:00 2016-10-22 2016-10-22 Outpatient [facility] [id number] 00:00:00 00:00:00 2016-10-22 2016-10-22 Outpatient [facility] [id number] 00:00:00 00:00:00 2016-10-14 2016-10-14 Outpatient [facility] [id number] 00:00:00 00:00:00 2016-10-14 2016-10-14 Outpatient [facility] [id number] 00:00:00 00:00:00 2016-10-14 2016-10-14 Outpatient [facility] [id number] 00:00:00 00:00:00 2016-10-13 2016-10-13 Outpatient [facility] [id number] 00:00:00 00:00:00 2016-10-06 2016-10-06 Outpatient [facility] [id number] 00:00:00 00:00:00 2016-09-26 2016-09-26 Outpatient [facility] [id number] 13:05:03 13:05:03 2016-09-26 2016-09-26 Outpatient [facility] [id number] 11:08:45 11:08:45 2016-09-26 2016-09-26 Outpatient [facility] [id number] 00:00:00 00:00:00 2016-09-23 2016-09-23 Outpatient [facility] [id number] 08:22:53 08:22:53 2016-09-22 2016-09-22 Outpatient [facility] [id number] 00:00:00 00:00:00 2016-09-02 2016-09-02 Outpatient [facility] [id number] 10:13:54 10:13:54 2016-09-02 2016-09-02 Outpatient [facility] [id number] 09:14:14 09:14:14 2016-09-01 2016-09-01 Outpatient [facility] [id number] 00:00:00 00:00:00 2016-08-27 2016-08-27 Outpatient [facility] [id number] 12:05:53 12:05:53 2016-08-27 2016-08-27 Outpatient [facility] [id number] 00:00:00 00:00:00 2016-08-06 2016-08-06 Outpatient [facility] [id number] 09:30:09 09:30:09 2016-08-05 2016-08-05 Outpatient [facility] [id number] 07:45:01 07:45:01 2016-08-05 2016-08-05 Outpatient [facility] [id number] 07:31:35 07:31:35 2016-08-05 2016-08-05 Outpatient [facility] [id number] 07:03:38 07:03:38 2016-08-05 2016-08-05 Outpatient [facility] [id number] 00:00:00 00:00:00 2016-07-30 2016-07-30 Outpatient [facility] [id number] 08:54:41 08:54:41 2016-07-30 2016-07-30 Outpatient [facility] [id number] 08:31:03 08:31:03 2016-07-30 2016-07-30 Outpatient [facility] [id number] 00:00:00 00:00:00 2016-07-04 2016-07-04 Outpatient [facility] [id number] 13:13:54 13:13:54 2016-06-18 2016-06-18 Emergency [facility] [id number] 06:01:16 06:01:16 2016-06-18 2016-06-18 Emergency [facility] [id number] 03:35:11 03:35:11 2016-06-12 2016-06-12 Outpatient [facility] [id number] 15:43:01 15:43:01 2016-06-10 2016-06-10 Outpatient [facility] [id number] 15:07:17 15:07:17 2016-06-03 2016-06-03 Emergency [facility] [id number] 22:18:53 22:18:53 2016-06-03 2016-06-03 Emergency [facility] [id number] 21:25:09 21:25:09 2016-06-03 2016-06-03 Outpatient [facility] [id number] 13:20:06 13:20:06 2016-04-24 2016-04-24 Outpatient [facility] [id number] 15:07:56 15:07:56 2016-04-01 2016-04-01 Outpatient [facility] [id number] 00:00:00 00:00:00 2016-03-19 2016-03-19 Outpatient [facility] [id number] 09:28:43 09:28:43 2016-03-17 2016-03-17 Outpatient [facility] [id number] 14:23:13 14:23:13 2016-03-17 2016-03-17 Outpatient [facility] [id number] 11:07:20 11:07:20 2016-03-17 2016-03-17 Outpatient [facility] [id number] 10:16:12 10:16:12 2016-03-11 2016-03-11 Outpatient [facility] [id number] 11:14:32 11:14:32 2016-02-18 2016-02-18 Outpatient [facility] [id number] 10:29:58 10:29:58 2016-02-12 2016-02-12 Outpatient [facility] [id number] 11:32:37 11:32:37 2016-02-12 2016-02-12 Outpatient [facility] [id number] 10:50:02 10:50:02 2016-02-08 2016-02-08 Outpatient [facility] [id number] 09:42:08 09:42:08 Results Test Description Test Time [...] to the main Lab for analysis. POC [id number] 07:41:17 Test Item Value Reference Range Comments Glucose POC (test 268 mg/dL 70-115 Notify RN or MDIf you consider code=Glucose POC) your patient critically ill, the Eliza-Accu Check Infrom II meter should not be used for Glucose determination. Draw a venous Glucose and send to the main Lab for analysis. POC [id number] 20:06:15 Test Item Value Reference Range Comments Glucose POC (test 259 mg/dL 70-115 If you consider your patient code=Glucose POC) critically ill, the Eliza-Accu Check Infrom II meter should not be used for Glucose determination. Draw a venous Glucose and send to the main Lab for analysis. POC [id number] 16:24:53 Test Item Value Reference Range Comments Glucose POC (test 171 mg/dL 70-115 If you consider your patient code=Glucose POC) critically ill, the Eliza-Accu Check Infrom II meter should not be used for Glucose determination. Draw a venous Glucose and send to the main Lab for analysis. Troponin [id number] 13:20:34 Test Item Value Reference Range Comments [...] a diagnosis of chronic myocardial injury. Creatine [id number] 13:19:47 Test Item Value Reference Range Comments CK (test code=CK) 138 U/L 39-308 Creatine Kinase MB [id number] 13:18:50 Test Item Value Reference Range Comments CKMB (test code=CKMB) 4.8 ng/mL 0.0-4.9 Creatine Kinase MB [id number] 13:18:50 Test Item Value Reference Range Comments CKMB (test code=CKMB) 4.8 ng/mL 0.0-4.9 CKMB % (test code=CKMB %) 3.5 % 0.0-3.4 Drugs of Abuse Urine [id number] 13:05:26 Test Item Value Reference Range Comments [...] (test Negative Negative code=Cannabinoid Screen Ur) POC [id number] 11:32:18 Test Item Value Reference Range Comments Glucose POC (test 296 mg/dL 70-115 If you consider your patient code=Glucose POC) critically ill, the Eliza-Accu Check Infrom II meter should not be used for Glucose determination. Draw a venous Glucose and send to the main Lab for analysis. Thyroid Stimulating [id number] 07:33:08 Test Item Value Reference Range Comments TSH (test code=TSH) 1.020 mIU/mL 0.270-4.200 Hemoglobin [id number] 07:32:52 Test Item Value Reference Range Comments Hemoglobin A1c (test 11.0 % 4.8-5.9 Non Diabetic 4.8-5.9%Diabetic code=Hemoglobin A1c) <7.0% Lipid [id number] 07:27:53 Test Item Value Reference Range Comments Cholesterol Total (test 156 mg/dL 0-200 RISK OF HEART code=Cholesterol Total) DISEASEPublished by Canadian Heart Association Analyte Optimal Borderline Increased RiskCHOL [...] when Triglyceride is greater than 400. Magnesium [id number] 07:27:53 Test Item Value Reference Range Comments Magnesium Level (test code=Magnesium Level) 1.5 mg/dL 1.7-2.5 Phosphorus [id number] 07:27:53 Test Item Value Reference Range Comments Phosphorus Level (test code=Phosphorus Level) 2.80 mg/dL 2.70-4.50 Comprehensive Metabolic [id number] 07:27:52 Test Item Value Reference Range Comments [...] (test code=A/G Ratio) 1.4 ratio Comprehensive Metabolic [id number] 07:27:52 Test Item Value Reference Range Comments [...] is not provided, and the patient is -Canadian, multiply by 1.212. If sex is not [...] the National Kidney Foundation, http://nkdep.nih.gov Comprehensive Metabolic Omdow0913-30-60 07:27:52 Test Item Value Reference Range Comments [...] is not provided, and the patient is -Canadian, multiply by 1.212. If sex is not [...] is not provided, and the patient is -Canadian, multiply by 1.212. If sex is not [...] by the National Kidney Foundation, http://nkdep.nih.gov POC Nigwiig3687-86-99 07:20:10 Test Item Value Reference Range Comments Glucose POC (test 225 mg/dL 70-115 If you consider your patient code=Glucose POC) critically ill, the Eliza-Accu Check Infrom II meter should not be used for Glucose determination. Draw a venous Glucose and send to the main Lab for analysis. Creatine [id number] 07:19:03 Test Item Value Reference Range Comments CK (test code=CK) 119 U/L 39-308 Troponin [id number] 07:19:03 Test Item Value Reference Range Comments [...] of chronic myocardial injury. Creatine Kinase MB [id number] 07:17:15 Test Item Value Reference Range Comments CKMB (test code=CKMB) 3.8 ng/mL 0.0-4.9 Creatine Kinase MB [id number] 07:17:15 Test Item Value Reference Range Comments CKMB (test code=CKMB) 3.8 ng/mL 0.0-4.9 CKMB % (test code=CKMB %) 3.2 % 0.0-3.4 Complete Blood Count without [id number] 06:59:02 Test Item Value Reference Range Comments [...] x10 IPF (test code=IPF) 0 % POC [id number] 06:12:19 Test Item Value Reference Range Comments Glucose POC (test 267 mg/dL 70-115 If you consider your patient code=Glucose POC) critically ill, the Eliza-Accu Check Infrom II meter should not be used for Glucose determination. Draw a venous Glucose and send to the main Lab for analysis. POC [id number] 05:00:38 Test Item Value Reference Range Comments Glucose POC (test 61 mg/dL 70-115 If you consider your patient code=Glucose POC) critically ill, the Eliza-Accu Check Infrom II meter should not be used for Glucose determination. Draw a venous Glucose and send to the main Lab for analysis. POC [id number] 04:01:42 Test Item Value Reference Range Comments Glucose POC (test 151 mg/dL 70-115 Notify RN or MDIf you consider code=Glucose POC) your patient critically ill, the Eliza-Accu Check Infrom II meter should not be used for Glucose determination. Draw a venous Glucose and send to the main Lab for analysis. POC [id number] 03:15:14 Test Item Value Reference Range Comments [...] 1.9 mmol/L 0.5-1.9 Acid, Plasma (Venous)) POC [id number] 02:08:55 Test Item Value Reference Range Comments [...] Site (test code=Draw Site) Brachial. R POC [id number] 01:25:51 Test Item Value Reference Range Comments Glucose POC (test 366 mg/dL 70-115 If you consider your patient code=Glucose POC) critically ill, the Eliza-Accu Check Infrom II meter should not be used for Glucose determination. Draw a venous Glucose and send to the main Lab for analysis. [id number] 22:30:52 Test Item Value Reference Range Comments Acetone (Ketones) (test code=Acetone (Ketones)) Negative Negative Lot # (test code=Lot #) [id number] Expiration Dt (test code=Expiration Dt) [id number] Neg Control (test code=Neg Control) Negative Pos Control (test code=Pos Control) Positive Urinalysis with Culture, if [id number] 22:29:03 Test Item Value Reference Range Comments [...] by rule Micro Ind?) GL_SJM_UA_MICRO_IND Comprehensive Metabolic [id number] 22:13:44 Test Item Value Reference Range Comments [...] is not provided, and the patient is -Canadian, multiply by 1.212. If sex is not [...] is not provided, and the patient is -Canadian, multiply by 1.212. If sex is not [...] by the National Kidney Foundation, http://nkdep.nih.gov Alcohol Wqfaz1616-36-23 22:02:32 Test Item Value Reference Range Comments Ethanol Level (test 0.30 g/dL 0.00-0.01 Critical results called to RN, code=Ethanol Level) Cathy Hardy at 10/02/2018 22:01:54 CDT_ by RS_. Read back and verified? _yesIntoxicated 0.080 g/dL or more Ethanol Inst (test 302 code=Ethanol Inst) Magnesium [id number] 21:53:52 Test Item Value Reference Range Comments Magnesium Level (test code=Magnesium Level) 1.6 mg/dL 1.7-2.5 Phosphorus [id number] 21:53:52 Test Item Value Reference Range Comments Phosphorus Level (test code=Phosphorus Level) 4.40 mg/dL 2.70-4.50 Automated [id number] 21:32:53 Test Item Value Reference Range Comments Neutro Auto (test code=Neutro Auto) 57.7 % 36.0-70.0 Lymph Auto (test code=Lymph Auto) 28.4 % 12.0-44.0 Imperial Auto (test code=Imperial Auto) 10.8 % 0.0-11.0 Eos, Auto (test code=Eos, Auto) 1.4 % 0.0-7.0 Basophil Auto (test code=Basophil Auto) 0.7 % 0.0-2.0 Neutro Absolute (test code=Neutro Absolute) 5.5 x10 1.6-7.4 Lymph Absolute (test code=Lymph Absolute) 2.69 x10 .50-4.60 Imperial Absolute (test code=Imperial Absolute) 1.02 x10 .00-1.20 Eos Absolute (test code=Eos Absolute) 0.13 x10 0.00-0.74 Baso Absolute (test code=Baso Absolute) 0.07 x10 0.00-0.21 IG [id number] 21:32:53 Test Item Value Reference Range Comments IG (test code=IG) 1.0 % 0.0-5.0 IG Abs (test code=IG Abs) 0 x10 Complete Blood Count with Seegpcffyqpk5287-85-30 21:32:52 Test Item Value Reference Range Comments [...] x10 IPF (test code=IPF) 0 % POC [id number] 20:55:21 Test Item Value Reference Range Comments [...] (test code=Draw Site) Radial. R COMPREHENSIVE METABOLIC [id number] 22:26:00 Test Item Value Reference Range Comments SODIUM (test code=NA) 137 MMOL/L 137-145 POTASSIUM (test code=K) 4.8 MMOL/L 3.5-5.1 CHLORIDE (test code=CL) 83 MMOL/L 98-107 CARBON DIOXIDE (test code=CO2) 28 MMOL/L 22-30 ANION GAP (test code=GAP) 31 MMOL/L 14-24 GLUCOSE (test code=GLU) 613 MG/DL 74-106 CALLED TO TRUDY Burnett & TRISHA ON 08/25/18 AT 2225 Elizabeth Madrigal BLOOD [...] ALKALINE PHOSPHATASE (test 255 UNITS/L 38-126 code=ALKP) [id number] 22:26:00 Test Item Value Reference Range Comments ALCOHOL (test code=ALC) 282.0 MG/DL <10 CALLED TO TRUDY Ortiz & READBACK ON 08/25/18 AT 2226 Elizabeth Madrigal CBC W/O [id number] 22:00:00 Test Item Value Reference Range Comments [...] code=NRBC#) 0.00 K/mm3 0.0-0.1 - XR CHEST [id number] 21:09:00 Patient Name: PRIYANKA EVANGELISTA Unit No: [id number] EXAMS: CPT CODE: [id number] XR CHEST 1V 16697 Location of dictation: B2 Portable chest one [...] Anh Beard (RT) Transcrpt Date/Tm/Trnsp: 08/25/2018 (2108) [facility] Orig Print D/T: S: 08/25/2018 (2112) [facility] NAME: PRIYANKA EVANGELISTA [id number] PHYS: [place] [address] : 1965 AGE: 53 SEX: M LOC: Z.ERS PHONE #: [phone] EXAM DATE: 08/25/2018 STATUS: PRE ER FAX #: [phone] RADIOLOGY NO: PAGE 1 Signed ReportGLUCOSE BEDSIDE [id number] 20:44:00 Test Item Value Reference Range Comments GLUCOSE BEDSIDE TESTING (test > 600 MG/DL 60-99 Notified Nurse~ code=GLUBED) XR Ribs w/ PA Chest Oysxskpmu3665-05-79 01:15:17Patient: PRIYANKA EVANGELISTA Date/Time07/20/2018 00: 30 CDTReason for ExamInjuryReportLOCATION: [id number]: 53-year-old male who presents with rib pain.COMMENT:A [...] left rib cage. Final Dictated by: MD Jose M, RobertLDictated DT/TM: 07/20/2018 1:13 amSigned by: MD Salguero Robert LSigned (Electronic Signature): 07/20/2018 1:15 amGLUCOSE BEDSIDE [id number] 16:12:00 Test Item Value Reference Range Comments GLUCOSE BEDSIDE TESTING (test code=GLUBED) 271 MG/DL 60-99 [id number] 14:56:00 Test Item Value Reference Range Comments ALCOHOL (test code=ALC) 296.0 MG/DL <10 CALLED TO FANTASMA& READBACK ON 06/10/18 AT 1456 BY Romina Valdes HEPATIC FUNCTION [id number] 14:54:00 Test Item Value Reference Range Comments TOTAL PROTEIN (test code=PROT) 8.9 G/DL 6.2-7.6 ALBUMIN (test code=ALB) 5.2 G/DL 3.5-5.0 BILIRUBIN TOTAL (test code=BILT) 0.7 MG/DL 0.2-1.3 BILIRUBIN DIRECT (test code=BILD) 0.0 MG/DL 0.0-0.3 SGOT/AST (test code=AST) 48 UNITS/L 17-59 SGPT/ALT (test code=ALT) 39 UNITS/L 21-72 ALKALINE PHOSPHATASE (test code=ALKP) 317 UNITS/L 38-126 DRUGS OF ABUSE SCREEN [id number] 14:16:00 Test Item Value Reference Range Comments [...] off Value: 25 ng/mL code=PHENCU) BASIC METABOLIC [id number] 14:05:00 Test Item Value Reference Range Comments [...] CALCIUM (test code=CA) 9.5 MG/DL 8.4-10.2 URINALYSIS [id number] 14:00:00 Test Item Value Reference Range Comments [...] NO CULTURE Culture Chk code=UACULT) Criteria URINALYSIS [id number] 13:59:00 Test Item Value Reference Range Comments [...] NEEDED? (test code=UACULT) Criteria Culture Chk PROTHROMBIN [id number] 13:41:00 Test Item Value Reference Range Comments [...] systemic embolism. 3.0 - 4.5 CBC W/AUTO [id number] 13:30:00 Test Item Value Reference Range Comments [...] (test code=NRBC#) 0.00 K/mm3 0.0-0.1 GLUCOSE BEDSIDE [id number] 13:01:00 Test Item Value Reference Range Comments GLUCOSE BEDSIDE TESTING (test code=GLUBED) 427 MG/DL 60-99 Notified Nurse~ CHEMISTRY 8 [id number] 13:00:00 Test Item Value Reference Range Comments [...] Range: > or=60 ml/min/1.73 m2 CHEMISTRY 8 [id number] 13:00:00 Test Item Value Reference Range Comments [...] Range: > or=60 ml/min/1.73 m2 BASIC METABOLIC [id number] 11:41:00 Test Item Value Reference Range Comments [...] (test code=CA) 8.2 MG/DL 8.4-10.2 CBC W/AUTO [id number] 11:37:00 Test Item Value Reference Range Comments [...] RBC # (test code=NRBC#) 0.00 K/mm3 0.0-0.1 [id number] 11:00:00 Test Item Value Reference Range Comments ALCOHOL (test code=ALC) 323.0 MG/DL <10 CALLED TO BERTHA.T& READBACK ON 06/08/18 AT 1100 BY Romina Valdes - XR HIP W/PEL UNI 2+V [id number] 09:57:00 Patient Name: PRIYANKA EVANGELISTA Unit No: [id number] EXAMS: CPT CODE: [id number] XR HIP W/PEL UNI 2+[place] [address] Right hip History: pain Comparison: May 31, [...] Carter Chatman, RT(R) Transcrpt Date/Tm/Trnsp: 06/08 (0957) t.SDR.[facility] OrigPrint D/T: S: 06/08/2018 (1001) [facility] NAME: PRIYANKA EVANGELISTA [id number] PHYS: [place] [address] : 1965 AGE : 53 SEX: M LOC: UNK PHONE #: [phone] EXAM DATE: 06/08/2018 STATUS: DEP FAX #: [phone] RADIOLOGY NO: PAGE 1 Signed Report- XR HIP W/PEL UNI 2+V [id number] 09:57:00 Patient Name: PRIYANKA EVANGELISTA Unit No: [id number] EXAMS: CPT CODE: [id number] XR HIP W/PEL UNI 2+[place] [id number] Right hip History: pain Comparison: May 31, [...] (0957) t.SDR.PMT OrigPrint D/T: S: 02/2019 (1001) [facility] NAME: PRIYANKA EVANGELISTA [id number] PHYS : [place] [address] : 02/1966 AGE: 53 SEX: M LOC: KATHY PHONE #: [phone] EXAM DATE: 06/08/2018 STATUS: REG ER FAX #: [phone] RADIOLOGY NO: PAGE 1 Signed ReportGLUCOSE BEDSIDE [id number] 12:55:00 Test Item Value Reference Range Comments GLUCOSE BEDSIDE TESTING (test code=GLUBED) 160 MG/DL 60-99 GLUCOSE BEDSIDE [id number] 10:49:00 Test Item Value Reference Range Comments GLUCOSE BEDSIDE TESTING (test code=GLUBED) 186 MG/DL 60-99 BASIC METABOLIC [id number] 06:15:00 Test Item Value Reference Range Comments [...] (test code=CA) 8.8 MG/DL 8.4-10.2 CBC W/AUTO [id number] 05:54:00 Test Item Value Reference Range Comments [...] (test code=NRBC#) 0.00 K/mm3 0.0-0.1 GLUCOSE BEDSIDE [id number] 21:08:00 Test Item Value Reference Range Comments GLUCOSE BEDSIDE TESTING (test code=GLUBED) 198 MG/DL 60-99 GLUCOSE BEDSIDE [id number] 18:21:00 Test Item Value Reference Range Comments GLUCOSE BEDSIDE TESTING (test code=GLUBED) 217 MG/DL 60-99 [id number] 13:23:00 Test Item Value Reference Range Comments MAGNESIUM (test code=MAG) 1.6 MG/DL 1.6-2.3 GLUCOSE BEDSIDE [id number] 12:58:00 Test Item Value Reference Range Comments GLUCOSE BEDSIDE TESTING (test code=GLUBED) 334 MG/DL 60-99 GLUCOSE BEDSIDE [id number] 12:40:00 Test Item Value Reference Range Comments GLUCOSE BEDSIDE TESTING (test code=GLUBED) 193 MG/DL 60-99 GLUCOSE BEDSIDE [id number] 10:59:00 Test Item Value Reference Range Comments GLUCOSE BEDSIDE TESTING (test code=GLUBED) 173 MG/DL 60-99 BASIC METABOLIC [id number] 06:55:00 Test Item Value Reference Range Comments [...] (test code=CA) 8.8 MG/DL 8.4-10.2 GLUCOSE BEDSIDE [id number] 06:37:00 Test Item Value Reference Range Comments GLUCOSE BEDSIDE TESTING (test code=GLUBED) 220 MG/DL 60-99 CBC W/AUTO [id number] 06:17:00 Test Item Value Reference Range Comments [...] RBC # (test code=NRBC#) 0.00 K/mm3 0.0-0.1 [id number] 21:42:00 Test Item Value Reference Range Comments MAGNESIUM (test code=MAG) 1.9 MG/DL 1.6-2.3 GLUCOSE BEDSIDE [id number] 21:08:00 Test Item Value Reference Range Comments GLUCOSE BEDSIDE TESTING (test code=GLUBED) 101 MG/DL 60-99 GLUCOSE BEDSIDE [id number] 15:54:00 Test Item Value Reference Range Comments GLUCOSE BEDSIDE TESTING (test code=GLUBED) 261 MG/DL 60-99 Notified Nurse~ GLUCOSE BEDSIDE [id number] 11:18:00 Test Item Value Reference Range Comments GLUCOSE BEDSIDE TESTING (test code=GLUBED) 321 MG/DL 60-99 Notified Nurse~ BASIC METABOLIC [id number] 08:23:00 Test Item Value Reference Range Comments SODIUM (test code=NA) 121 MMOL/L 137-145 POTASSIUM (test code=K) 5.0 MMOL/L 3.5-5.1 CHLORIDE (test code=CL) 84 MMOL/L 98-107 CARBON DIOXIDE (test code=CO2) 27 MMOL/L 22-30 ANION GAP (test code=GAP) 15 MMOL/L 14-24 GLUCOSE (test code=GLU) 344 MG/DL 74-106 [facility] READBACK ON 06/01/18 AT 0822 BY Romina Valdes BLOOD UREA NITROGEN (test 14 MG/DL 9-20 code=BUN) GLOMERULAR FILTRATION RATE > 60 Reporting units: ml/min/1.73 (test code=GFR) m2 (Modified MDRD Formula)Reference Range: > or=60 ml/min/1.73 m2 CREATININE (test code=CREAT) 0.80 MG/DL 0.66-1.25 CALCIUM (test code=CA) 8.9 MG/DL 8.4-10.2 CBC W/AUTO [id number] 07:18:00 Test Item Value Reference Range Comments [...] (test code=NRBC#) 0.00 K/mm3 0.0-0.1 GLUCOSE BEDSIDE [id number] 06:36:00 Test Item Value Reference Range Comments GLUCOSE BEDSIDE TESTING (test code=GLUBED) 296 MG/DL 60-99 [id number] 22:45:00 Test Item Value Reference Range Comments MAGNESIUM (test code=MAG) 1.2 MG/DL 1.6-2.3 GLUCOSE BEDSIDE [id number] 19:56:00 Test Item Value Reference Range Comments GLUCOSE BEDSIDE TESTING (test code=GLUBED) 316 MG/DL 60-99 Notified Nurse~ - XR HIP W/PEL UNI 2+V [id number] 13:13:00 Patient Name: PRIYANKA EVANGELISTA Unit No: [id number] EXAMS: CPT CODE: [id number] XR HIP W/PEL UNI 2+[place] [address] Right hip History: RIGHT FEMUR FRACTURE Comparison: [...] (1313) t.ANGLER.PMT Orig Print D/T: S: 05/31/2018 (1316) [facility] NAME: PRIYANKA EVANGELISTA [id number] PHYS: [place] [address] : 1965 AGE: 53 SEX: M LOC: Postachio PHONE #: [phone] EXAM DATE: 05/31/2018 STATUS: DIS IN FAX #: [phone] RADIOLOGY NO: PAGE 1 Signed Report- XR HIP W/ PEL UNI 2+V [id number] 13:13:00 Patient Name: PRIYANKA EVANGELISTA Unit No: [id number] EXAMS: CPT CODE: [id number] XR HIP W/PEL UNI 2+[place] [address] Right hip History: RIGHT FEMUR FRACTURE Comparison: [...] Technologist: Rohan Machado RT(R) Transcrpt Date/Tm/Trnsp: 05/31/2018 (1333) t.SDR.PMT Orig Print D/T: S: 05/31/2018 (4320) [facility] NAME: PRIYANKA EVANGELISTA [id number] PHYS: [place] [address] : 1965 AGE: 53 SEX: M LOC: Z.534 A PHONE #: [phone] EXAM DATE: 05/31/2018 STATUS: ADM IN FAX #: [phone] RADIOLOGY NO: PAGE 1 Signed [id number] 12:56:00 Test Item Value Reference Range Comments HEMOGLOBIN (test code=HGB) 11.1 G/DL 12.4-16.7 Specimen comments: Patient in PACUComments to Environmental Services Lead: Patient in [id number] 12:56:00 Test Item Value Reference Range Comments HEMATOCRIT (test code=HCT) 34.1 % 35.9-49.5 Specimen comments: Patient in PACUComments to Environmental Services Lead: Patient in PACUGLUCOSE BEDSIDE [id number] 09:21:00 Test Item Value Reference Range Comments [...] HIGH.........130-159 mg/dL HIGH.........160-189 mg/dL VERY HIGH.........>/=190 mg/dL [id number] 07:50:00 Test Item Value Reference Range Comments MAGNESIUM (test code=MAG) 1.3 MG/DL 1.6-2.3 THYROID STIMULATING [id number] 07:50:00 Test Item Value Reference Range Comments [...] HIGH.........130-159 mg/dL HIGH.........160-189 mg/dL VERY HIGH.........>/=190 mg/dL [id number] 07:30:00 Test Item Value Reference Range Comments MAGNESIUM (test code=MAG) 1.3 MG/DL 1.6-2.3 THYROID STIMULATING [id number] 07:30:00 Test Item Value Reference Range Comments THYROID STIMULATING HORMONE (test code=TSH) MIU/L 0.465-4.68 LIPID PROFILE (CORONARY RISK)2018-05-31 07:19:00 Test Item Value Reference Range Comments TRIGLYCERIDES (test code=TRIG) 93 MG/DL TRIGLYCERIDES REFERENCE RANGE:Normal: <150 mg/dLBorderline High: 150-199 mg/dLHigh: 200-499 mg/dLVery High: >=500 mg/dL CHOLESTEROL (test code=CHOL) 191 MG/DL <200 HDL CHOLESTEROL (test 58 MG/DL 40-59 code=HDL) LIPOPROTEIN LDL (test MG/DL 0-99 code=LDL) [id number] 07:19:00 Test Item Value Reference Range Comments MAGNESIUM (test code=MAG) 1.3 MG/DL 1.6-2.3 THYROID STIMULATING [id number] 07:19:00 Test Item Value Reference Range Comments THYROID STIMULATING HORMONE (test code=TSH) MIU/L 0.465-4.68 GLYCOSYLATED HEMOGLOBIN [id number] 22:01:00 Test Item Value Reference Range Comments [...] (test 260 MG/DL 70-110 code=MBG) COMPREHENSIVE METABOLIC [id number] 20:45:00 Test Item Value Reference Range Comments SODIUM (test code=NA) 139 MMOL/L 137-145 POTASSIUM (test code=K) 4.9 MMOL/L 3.5-5.1 CHLORIDE (test code=CL) 101 MMOL/L 98-107 CARBON DIOXIDE (test code=CO2) 24 MMOL/L 22-30 ANION GAP (test code=GAP) 19 MMOL/L 14-24 GLUCOSE (test code=GLU) 332 MG/DL 74-106 CALLED TO GERA CUMMINS QSB=245& READBACK ON 05/30/18 AT 2045 BY Jeremías Oh BLOOD UREA NITROGEN (test [...] (test 192 UNITS/L 38-126 code=ALKP) GLUCOSE BEDSIDE [id number] 16:40:00 Test Item Value Reference Range Comments GLUCOSE BEDSIDE TESTING (test code=GLUBED) 314 MG/DL 60-99 URINALYSIS [id number] 15:07:00 Test Item Value Reference Range Comments [...] NEEDED? (test code=UACULT) Criteria Culture Chk URINALYSIS [id number] 15:07:00 Test Item Value Reference Range Comments [...] CULTURE Culture Chk code=UACULT) Criteria GLUCOSE BEDSIDE [id number] 12:16:00 Test Item Value Reference Range Comments GLUCOSE BEDSIDE TESTING (test code=GLUBED) 368 MG/DL 60-99 COMPREHENSIVE METABOLIC [id number] 11:34:00 Test Item Value Reference Range Comments [...] ALKALINE PHOSPHATASE (test 204 UNITS/L 38-126 code=ALKP) [id number] 11:34:00 Test Item Value Reference Range Comments ALCOHOL (test code=ALC) 348.0 MG/DL <[address] ALFONSO& READBACK ON 05/30/18 AT 1133 BY Elizabeth Machado PROTHROMBIN [id number] 11:11:00 Test Item Value Reference Range Comments [...] recurrent systemic embolism. 3.0 - 4.5 PTT [id number] 11:11:00 Test Item Value Reference Range Comments PTT ACTIVATED (test code=APTT) 25.5 SECONDS 22.0-33.0 CBC W/AUTO [id number] 10:57:00 Test Item Value Reference Range Comments [...] 0.0-0.1 - XR HIP W/PEL UNI 2+V [id number] 09:50:00 Patient Name: PRIYANKA EVANGELISTA Unit No: [id number] EXAMS: CPT CODE: [id number] XR HIP W/PEL UNI 2+[place] [address] Location code: R 16 Right hip 2 [...] Naveed(R); Holger Goff (RT)(R) Transcrpt Date/Tm/Trnsp: 05/30/2018 (0950) [id number] Orig Print D/T: S: 05/30/2018 (2953) [facility] NAME: PRIYANKA EVANGELISTA [id number] PHYS: [place] [address] : 1965 AGE: 53 SEX: M LOC: Postachio PHONE #: [phone] EXAM DATE: 05/30/2018 STATUS: DIS IN FAX #: [phone] RADIOLOGY NO: PAGE 1 Signed Report- XR HIP W/PEL UNI 2+V [id number] 09:50:00 Patient Name: PRIYANKA EVANGELISTA Unit No: [id number] EXAMS: CPT CODE: [id number] XR HIP W/PEL UNI 2+[place] [address] Location code: R 16 Right hip 2 [...] Naveed(R); Holger Goff (RT)(R) Transcrpt Date/Tm/Trnsp: 05/30/2018 (0950) [id number] Orig Print D/T: S: (0953) [facility] NAME: PRIYANKA EVANGELISTA [id number] PHYS : [place] [address] : 02/1966 AGE: 53 SEX: M LOC: .ERS PHONE #: [phone] EXAM DATE: STATUS: PRE ER FAX #: [phone] RADIOLOGY NO: PAGE 1 Signed Report- XR HIP W/PEL UNI 2+V [id number] 14:25:00 Patient Name: PRIYANKA EVANGELISTA Unit No: [id number] EXAMS: CPT CODE: [id number] XR HIP W/[place] UNI 2+[place] [address] Fluoroscopy Left hip nailing FINDINGS: An intramedullary nail with an intertrochanteric screw transfixes an intertrochanteric fracture. Hardware appears intact Fluoroscopy time utilized 77 seconds. Please refer to operative report for further details. Electronically Signed by Leonila Lane on 2016at 1425 Reported and signed by: Johnson Lane M.D. CC: Adrianne Tracy MD; Lisa Narvaez Technologist: Rohan Machado, RT(R); Gwen Bales RT(R) Transcrpt Date/Tm/Trnsp: 05/16/2016 (1425) [id number] Orig Print D/T:S: 05/16/2016 (1428) [facility] NAME: PRIYANKA EVANGELISTA [id number] PHYS: [place] [address] : 1965 AGE: 51 SEX: M LOC: UNK PHONE #: [phone] EXAM DATE: 05/16/2016 STATUS: UNK FAX #: [phone] RADIOLOGY NO: PAGE 1 Signed Report- XR WRIST 3+V [id number] 19:15:00 Patient Name: PRIYANKA EVANGELISTA Unit No: [id number] EXAMS: CPT CODE: [id number] XR WRIST 3+[place] [address] Location n 13 Left Wrist, 3 views [...] Matamoros M.D. CC: Adrianne Tracy MD Technologist: RT Ra(R) Transcrpt Date/Tm/Trnsp: 2015 (1914) [place] Orig Print D/T: S: 01/31/2016 (1917) [facility] NAME: PRIYANKA EVANGELISTA [id number] PHYS: [place] [address] : 1965 AGE: 50 SEX: M LOC: Postachio PHONE #: [phone] EXAM DATE: 2015 STATUS: UNAmara FAX #: [phone] RADIOLOGY NO: PAGE 1 Signed Report
--- OUTSIDE RECORDS SUMMARY | 2019-04-07 08:16 | XMS REPORT ---
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 polyneuropathy Problem HTN, goal below 130/80 I10 Active Problem Allergic rhinitis, unspecified J30.9 Active seasonality, unspecified trigger Problem Type 2 diabetes mellitus with other E11.29 Active diabetic kidney complication Problem Type 2 diabetes mellitus with 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
--- OUTSIDE RECORDS SUMMARY | 2019-04-07 08:16 | XMS REPORT ---
:1965 Author Organization eClinicalWorks Care Team Providers Name Role Phone Jose Alberto Roberto Provider Role Unavailable Allergies, Adverse Reactions, Alerts Substance Reaction Event Type N.K.D.A. Info Not Available Non Drug Allergy Problems Problem Type Condition Code Onset Dates Condition Status Assessment Non-compliant behavior R46.89 Active Assessment Insomnia, unspecified type G47.00 Active Assessment Type 2 diabetes mellitus with other E11.29 Active diabetic kidney complication Assessment Other chronic pain G89.29 Active Assessment Pain in left hip M25.552 Active Problem HTN, goal below 130/80 I10 Active Assessment Allergic rhinitis, unspecified J30.9 Active seasonality, unspecified trigger Problem Allergic rhinitis, unspecified J30.9 Active seasonality, unspecified trigger Assessment Tobacco use disorder F17.200 Active Problem Tobacco use disorder F17.200 Active Problem Mixed hyperlipidemia E78.2 Active Problem Other chronic pain G89.29 Active Problem Type 2 diabetes mellitus with other E11.29 Active diabetic kidney complication Problem Type 2 diabetes mellitus with E11.42 Active diabetic polyneuropathy Assessment Seizures R56.9 Active Assessment Anemia, unspecified type D64.9 Active Problem Insomnia, unspecified type G47.00 Active Assessment GERD without esophagitis K21.9 Active Problem Chronic obstructive pulmonary J44.9 Active disease, unspecified COPD type Problem Depression with anxiety F41.8 Active Problem skilled nursing (current) use of insulin Z79.4 Active Problem GERD without esophagitis K21.9 Active Assessment HTN, goal below 130/80 I10 Active Assessment Chronic obstructive pulmonary J44.9 Active disease, unspecified COPD type Assessment Depression with anxiety F41.8 Active Assessment Mixed hyperlipidemia E78.2 Active Assessment Type 2 diabetes mellitus with E11.42 Active diabetic polyneuropathy Assessment Proteinuria, unspecified R80.9 Active Assessment 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 Medications Medication Code Code Instructions Start End Status Dosage System Date Date Duloxetine HCl [facility] 32387201726 60 MG Oral Active TAKE 1 CAPSULE TWICE DAILY ProAir HFA [facility] 64506569161 108 (90 Base) Active 2 puffs as MCG/ACT needed Inhalation every 6 hrs Folic Acid [facility] 51643477301 1 MG Orally Active 1 tablet Once a day One Touch NDC 0 Once twice a Active one Delica test day strips Gabapentin [facility] 80539976463 600 MG Oral Active TAKE 1 TABLET BY MOUTH THREE TIMES A DAY Fenofibrate [facility] 91407782994 160 MG Oral Active take 1 tablet Once a day by mouth every day with supper Lisinopril [facility] 29836967960 20 MG Oral Once Active take 1 tablet a day by mouth every day Levetiracetam [facility] 34420514548 1000 MG Orally Dec Active 1 tablet Once a day 2018 Atorvastatin [facility] 62798447989 20 MG Orally Dec Active 1 tablet Calcium Once a day 2018 Metformin HCl [facility] 42805913880 1000 MG Orally Active 1 tablet with a BID meal Trazodone HCl [facility] 03302557777 100 MG Orally Dec Active 1 tablet at Once a day , bedtime 2018 Pantoprazole [facility] 55748872358 40 MG Orally Active 1 tablet Sodium Once a day Tramadol HCl [facility] 03844233364 50 MG Orally Active 1 tablet as Once a day PRN needed SEVERE PAIN Vicodin [facility] 56597055082 5-300 MG Orally Dec Inactive 1 tablet as every 6 hrs 17, needed 2018 Humulin R [facility] 07915974639 100 UNIT/ML Dec Active inject 2-18 Injection twice 13, units per a day 2019 sliding scale OneTouch Verio [facility] 07707583306 - In Vitro 4 Dec Active 1 test strip times a day 2018 Tresiba [facility] 26973264058 200 UNIT/ML Dec Active inject 30 units FlexTouch Subcutaneous 17, Once a day 2018 Cymbalta [facility] 97937828811 60 MG Orally Active 1 capsule Twice a day Insulin Syringe [facility] 19580199370 30G X 1/2 Active 1 syringe subcutaneously six times a day One Touch NDC 0 Active not defined Delica Lancets Humulin N [facility] 42114279815 100 UNIT/ML Inactive INJECT 20 UNITS Subcutaneous SUBCUTANEOUSLY 2 TIMES A DAY WITH MEALS Results No Known Results Summary Purpose eClinicalWorks Submission
[2019-04-07] MEDS ORDERED: CEFAZOLIN/SWI 1gm 1 GM/10 ML SYR ONE (08:52)
--- NOTE | 2019-04-07 09:13 | ER ---
Nurse's Notes [facility] Name: Frandy Gomes Age: 53 yrs Sex: Male : 1965 Arrival Date: 04/07/2019 Time: 08:15 Bed 19 Private MD: Roberto Abrams Diagnosis: Skin graft (allograft) (autograft) infection-right hand Presentation: 04/07 08:27 Presenting complaint: Patient states: R hand pain, hx of right hand sx in 12/2018 with sg skin graft, reports three weeks ago noticed it looked like it was getting infected. pt complains of pain and swelling to the right hand at this time. Transition of care: patient was not received from another setting of care. Onset of symptoms was April 07, 2019. Risk Assessment: Do you want to hurt yourself or someone else? Patient reports no desire to harm self or others. Initial Sepsis Screen: Does the patient meet any 2 criteria? No. Patient's initial sepsis screen is negative. Does the patient have a suspected source of infection? Yes: Skin breakdown/wound. Care prior to arrival: None. 08:27 Method Of Arrival: Wheelchair sg 08:27 Acuity: VARINDER 3 sg Historical: - Allergies: 08:32 No Known Allergies; sg - Home Meds: 08:32 lisinopril 20 mg Oral tab 1 tab once daily [Active]; atorvastatin 40 mg oral tab 1 tab sg once daily [Active]; trazodone 100 mg Oral tab [Active]; insulin regular human injection injection [Active]; - PMHx: 08:32 COPD; Diabetes - NIDDM; GERD; Hyperlipidemia; Hypertension; Seizures; titanium marjorie in sg arm and hip; - Immunization history:: Adult Immunizations up to date, Last tetanus immunization: up to date December 15, 2018. - Social history:: Smoking status: Patient uses tobacco products. - Ebola Screening: : Patient negative for fever greater than or equal to 101.5 degrees Fahrenheit, and additional compatible Ebola Virus Disease symptoms Patient denies exposure to infectious person Patient denies travel to an Ebola-affected area in the 21 days before illness onset No symptoms or risks identified at this time. Screenin:00 Abuse screen: Denies threats or abuse. Denies injuries from another. Nutritional sg screening: No deficits noted. Tuberculosis screening: No symptoms or risk factors identified. Never had TB. Fall Risk None identified. Assessment: 08:30 General: Appears in no apparent distress. unkempt, Behavior is calm, cooperative, sg appropriate for age. Pain: Complains of pain in right hand. Neuro: Level of Consciousness is awake, alert, obeys commands, Oriented to person, place, time, Religion Instructor are equal bilaterally Moves all extremities. Speech is normal, Facial symmetry appears normal. Cardiovascular: Capillary refill is brisk in bilateral fingers Patient's skin is warm and dry. Chest pain is denied. Respiratory: Airway is patent Respiratory effort is even, unlabored, Respiratory pattern is regular, symmetrical. GI: Abdomen is round non-distended. : No signs and/or symptoms were reported regarding the genitourinary system. EENT: No signs and/or symptoms were reported regarding the EENT system. Derm: Skin is pink, warm \T\ dry. Musculoskeletal: Circulation, motion, and sensation intact. Range of motion: intact in all extremities. 08:41 Reassessment: Patient appears in no apparent distress at this time. Sofie FARLEY reports sg pt to go to OR per . 10:04 Reassessment: Patient appears in no apparent distress at this time. Patient is alert, ca1 oriented x 3, equal unlabored respirations, skin warm/dry/pink. Vital Signs: 08:30 BP 103 / 77; Pulse 81; Resp 18; Temp 97.4; Pulse Ox 97% on R/A; Weight 68.04 kg (R); sg Height 5 ft. 8 in. (172.72 cm) (R); Pain 9/10; 09:54 BP 115 / 85; Pulse 68; Resp 17 S; Pulse Ox 100% on R/A; ca1 08:30 Body Mass Index 22.81 (68.04 kg, 172.72 cm) sg ED Course: 08:15 Patient arrived in ED. mr 08:15 Roberto Abrams DO is Private Physician. mr 08:19 Elias Herron, GERA is Primary Nurse. sg 08:19 Robbie Franco PA is PHCP. cp 08:19 Robbie Talley MD is Attending Physician. cp 08:29 Triage completed. sg 08:30 Arm band placed on. sg 09:00 Initial lab(s) drawn, by ED staff, sent to lab. Inserted saline lock: 22 gauge in left sg antecubital area, using aseptic technique. Blood collected. 09:11 Yo Salinas MD is Hospitalizing Provider. cp 09:12 XRAY Chest (1 view) In Process Unspecified. EDMS 09:55 Patient has correct armband on for positive identification. Placed in gown. Bed in low ca1 position. Call light in reach. Side rails up X 1. Pulse ox on. NIBP on. Warm blanket given. 10:04 No provider procedures requiring assistance completed. Patient admitted, IV remains in ca1 place. Administered Medications: 08:41 Not Given (Physician Discretion): Bacitracin Ointment (500 unit/g) 1 application cp Topical once 09:10 Drug: Ancef 1 grams Route: IVPB; Site: left antecubital; sg 10:02 Follow up: Response: No adverse reaction; IV Status: Completed infusion ca1 Outcome: 09:12 Decision to Hospitalize by Provider. cp 10:04 Admitted to OR accompanied by nurse, via wheelchair, room OR, with chart, Report called ca1 to GERA Carlson 10:04 Condition: stable 10:04 Instructed on the need for admit. 10:05 Patient left the ED. ca1 Signatures: Dispatcher [employer] EDMS Elias Herron, RN RN Shell Burks Corey, PA PA cp Acob, Cheryl, RN RN [facility]
--- NOTE | 2019-04-07 09:13 | EDPHYS ---
Physician Documentation [facility] Name: Frandy Gomes Age: 53 yrs Sex: Male : 1965 Arrival Date: 04/07/2019 Time: 08:15 Bed 19 Private MD: Jose Alberto [facility] ED Physician Robbie Talley HPI: 04/07 08:23 This 53 yrs old Male presents to ER via Unassigned with complaints of Hand cp infection. 08:23 The patient or guardian reports possible infection. The complaints affect the dorsum cp right hand. 08:24 Context: resulted from an unknown cause. cp 08:24 Onset: The symptoms/episode began/occurred 3 week(s) ago. cp 08:24 Associated signs and symptoms: Pertinent negatives: fever, injury. Patient reports cp having skin graft placed on dorsum right hand in December 2018. Historical: - Allergies: 08:32 No Known Allergies; sg - Home Meds: 08:32 lisinopril 20 mg Oral tab 1 tab once daily [Active]; atorvastatin 40 mg oral tab 1 tab sg once daily [Active]; trazodone 100 mg Oral tab [Active]; insulin regular human injection injection [Active]; - PMHx: 08:32 COPD; Diabetes - NIDDM; GERD; Hyperlipidemia; Hypertension; Seizures; titanium marjorie in sg arm and hip; - Immunization history:: Adult Immunizations up to date, Last tetanus immunization: up to date December 15, 2018. - Social history:: Smoking status: Patient uses tobacco products. - Ebola Screening: : Patient negative for fever greater than or equal to 101.5 degrees Fahrenheit, and additional compatible Ebola Virus Disease symptoms Patient denies exposure to infectious person Patient denies travel to an Ebola-affected area in the 21 days before illness onset No symptoms or risks identified at this time. ROS: 08:24 Constitutional: Negative for fever. cp 08:24 Skin: Positive for of the dorsum right hand, possible infection, Negative for injury. 08:24 Neuro: Negative for 08:24 Eyes: Negative for injury, pain, redness, and discharge. cp 08:24 Cardiovascular: Negative for chest pain. cp 08:24 Respiratory: Negative for cough, shortness of breath, wheezing. 08:24 Abdomen/GI: Negative for abdominal pain, vomiting, diarrhea, constipation. 08:24 All other systems are negative. Exam: 08:28 Head/Face: Normocephalic, atraumatic. cp 08:28 Constitutional: The patient appears in no acute distress, alert, awake, non-toxic, well developed, well nourished. 08:28 Skin: injury, superficial ulcerations without drainage, noted mild erythema noted dorsum right hand and arms. 08:43 Eyes: Periorbital structures: appear normal, Conjunctiva: normal, no exudate, no cp injection, Sclera: no appreciated abnormality, Lids and lashes: appear normal, bilaterally. 08:43 ENT: External ear(s): are unremarkable, Nose: is normal, Mouth: Lips: moist, Oral mucosa: pink and intact, moist, Posterior pharynx: is normal, airway is patent, no erythema, no exudate. 08:43 Chest/axilla: Inspection: normal, Palpation: is normal, no crepitus, no tenderness. 08:43 Cardiovascular: Rate: normal, Rhythm: regular, Heart sounds: murmur, not appreciated, Edema: is not appreciated, JVD: is not appreciated. 08:43 Respiratory: the patient does not display signs of respiratory distress, Respirations: normal, no use of accessory muscles, no retractions, no splinting, no tachypnea, labored breathing, is not present, Breath sounds: are clear throughout, no decreased breath sounds, no stridor, no wheezing. 08:43 Abdomen/GI: Exam negative for discomfort, distension, guarding, Inspection: abdomen appears normal. 08:43 Neuro: Orientation: to person, place \T\ time. Mentation: is normal, Cerebellar function: is grossly normal, Motor: moves all fours, strength is normal, Sensation: is normal. 09:10 ECG was reviewed by the Attending Physician. cp Vital Signs: 08:30 BP 103 / 77; Pulse 81; Resp 18; Temp 97.4; Pulse Ox 97% on R/A; Weight 68.04 kg (R); sg Height 5 ft. 8 in. (172.72 cm) (R); Pain 9/10; 09:54 BP 115 / 85; Pulse 68; Resp 17 S; Pulse Ox 100% on R/A; ca1 08:30 Body Mass Index 22.81 (68.04 kg, 172.72 cm) sg MDM: 08:23 Patient medically screened. cp 08:35 Differential diagnosis: cellulitis, rejected skin graft, abscess. cp 08:36 Physician consultation: Yo Salinas MD was called at 08:35, was contacted at 08:35, cp regarding patient's condition, and will see patient in ED, shortly. 09:33 Data reviewed: vital signs, nurses notes, EKG, radiologic studies, plain films, I have cp discussed the patient's presentation/case with the attending Emergency Department Physician;. 09:33 Test interpretation: by ED physician or midlevel provider: ECG, plain radiologic cp studies, cxray negative for infiltrates. Counseling: I had a detailed discussion with the patient and/or guardian regarding: the historical points, exam findings, and any diagnostic results supporting the discharge/admit diagnosis, admission to same day surgery. 04/07 08:42 Order name: Basic Metabolic Panel; Complete Time: 17:31 cp 04/07 17:31 Interpretation: Normal except: GLUC 169. cp 04/07 08:42 Order name: CBC with Diff; Complete Time: 09:30 cp 04/07 17:31 Interpretation: Normal except: RBC 4.07; HGB 11.7; HCT 35.1. cp 04/07 08:42 Order name: LFT's; Complete Time: 17:31 cp 04/07 08:42 Order name: PT-INR; Complete Time: 17:31 cp 04/07 17:31 Interpretation: Reviewed. cp 04/07 08:42 Order name: XRAY Chest (1 view); Complete Time: 09:30 cp 04/07 09:31 Interpretation: Report review. cp 04/07 08:42 Order name: EKG; Complete Time: 08:42 cp 04/07 08:42 Order name: Cardiac monitoring; Complete Time: 08:47 cp 04/07 08:42 Order name: EKG - Nurse/Tech; Complete Time: 09:13 cp 04/07 08:42 Order name: IV Saline Lock; Complete Time: 09:13 cp 04/07 08:42 Order name: Labs collected and sent; Complete Time: 09:13 cp 04/07 08:42 Order name: O2 Per Protocol; Complete Time: 08:47 cp 04/07 08:42 Order name: O2 Sat Monitoring; Complete Time: 08:47 cp EC:10 Rate is 76 beats/min. Rhythm is regular. NH interval is normal. QRS interval is normal. cp QT interval is normal. Interpreted by me. Reviewed by me. Administered Medications: 08:41 Not Given (Physician Discretion): Bacitracin Ointment (500 unit/g) 1 application cp Topical once 09:10 Drug: Ancef 1 grams Route: IVPB; Site: left antecubital; 10:02 Follow up: Response: No adverse reaction; IV Status: Completed infusion ca1 Disposition: 16:40 Co-signature as Attending Physician, Robbie Talley MD I agree with the assessment and [facility] plan of care. Disposition: 04/07/19 09:12 Hospitalization ordered by Yo Salinas for Observation. 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 - Bed requested for DAY SURGERY OTHER. - Status is Observation. ca1 - Condition is Stable. - Problem is new. - Symptoms have improved. UTI on Admission? No Signatures: Dispatcher [employer] EDMS Elias Herron RN RN sg Anderson, Corey, MD MD cha Page, Corey, PA PA cp Angeline Brothers eb Luzma Nova RN RN ca1 Corrections: (The following items were deleted from the chart) 08:41 08:27 Dressing - Wound ordered. cp cp 09:19 09:12 Hospitalization Ordered by Yo Salinas MD for Observation. Preliminary eb diagnosis is Skin graft (allograft) (autograft) infection - right hand. Bed requested for DAY SURGERY OTHER. Status is Observation. Condition is Stable. Problem is new. Symptoms have improved. UTI on Admission? No. cp 10:05 08:42 Urine Dipstick-Ancillary ordered. cp ca1 10:05 09:19 04/07/2019 09:12 Hospitalization Ordered by Yo Salinas MD for Observation. ca1 Preliminary diagnosis is Skin graft (allograft) (autograft) infection - right hand. Bed requested for DAY SURGERY OTHER. Status is Observation. Condition is Stable. Problem is new. Symptoms have improved. UTI on Admission? No. eb 17:30 08:24 All other systems are negative, cp cp
[2019-04-07 09:24] LABS: Absolute Lymphocytes (CBC) 1.9 K/uL (0.7-4.9); Basophils % 1.1 % (0-1.3); Hematocrit 35.1 % (39.6-49.0); Lymphocytes % 28.5 % (15.3-44.8); MPV 7.7 fL (7.6-11.3); RBC Red Blood Cell Count 4.07 M/uL (4.33-5.43)
--- NOTE | 2019-04-07 09:28 | RAD REPORT ---
EXAM DESCRIPTION: RAD - Chest Single View - 04/07/2019 9:11 am CLINICAL HISTORY: Preop chest, soft tissue infection treatment COMPARISON: November 2018 TECHNIQUE: AP portable chest image was obtained 0849 hours . FINDINGS: No peripheral mass or consolidation seen. Vague nodular focus lateral right lung field is believed be part of a rib and similar to comparison. This is potentially from old trauma. No failure or volume overload. Heart and vasculature are normal. No measurable pleural effusion and no pneumothorax. No acute bony abnormality seen. Left shoulder prosthesis in place. No acute aortic finding. IMPRESSION: No acute cardiopulmonary process. No significant change from comparison.
[2019-04-07 09:45] LABS: ALT/SGPT 31 U/L (12-78); AST/SGOT 26 U/L (15-37); Albumin 3.4 g/dL (3.4-5.0); Alkaline Phosphatase 171 U/L (45-117); BUN Blood Urea Nitrogen 7 mg/dL (7-18); Bicarbonate 28 mmol/L (21-32); Bilirubin Direct 0.1 mg/dL (0-0.2); Bilirubin Total 0.4 mg/dL (0.2-1.0); Glucose Level 169 mg/dL (74-106); Potassium 4.1 mmol/L (3.5-5.1); Protein, Total 7.2 g/dL (6.4-8.2); Sodium Level 137 mmol/L (136-145)
[2019-04-07 10:04] LABS: Protime INR 1.11
--- OUTSIDE RECORDS SUMMARY | 2019-04-07 10:16 | XMS REPORT ---
[...] Problem Depression with anxiety F41.8 Active Problem [facility] (current) use of insulin Z79.4 Active Problem GERD without esophagitis K21.9 Active Medications Medication Code System Code Instructions Start Date End Date Status Dosage Gabapentin [facility] [id number] 600 MG Orally Active 1 tablet three times a day Results No Known Results Summary Purpose eClinicalWorks Submission
--- OUTSIDE RECORDS SUMMARY | 2019-04-07 10:16 | XMS REPORT ---
:1965 [facility] [address] [place] [address] Care Team Providers Name Role Phone Unavailable [...] MHSW [id number] 00:28:00 00:28:00 2018-05-12 2018-05-12 Outpatient [facility] [id number] 00:00:00 00:00:00 2018-04-13 2018-04-13 Outpatient [facility] [id number] 00:00:00 00:00:00 2018-02-23 2018-02-23 Outpatient [facility] [id number] 00:00:00 00:00:00 2018-02-19 2018-02-19 Outpatient [facility] [id number] 00:00:00 00:00:00 2018-02-16 2018-02-16 Outpatient [facility] [id number] 00:00:00 00:00:00 2018-01-25 2018-01-25 Outpatient [facility] [id number] 00:00:00 00:00:00 2018-01-22 2018-01-22 Outpatient [facility] [id number] 15:47:04 15:47:04 2018-01-20 2018-01-20 Outpatient [facility] [id number] 00:00:00 00:00:00 2018-01-19 2018-01-19 Outpatient [facility] [id number] 15:13:11 15:13:11 2018-01-19 2018-01-19 Outpatient [facility] [id number] 00:00:00 00:00:00 2017-12-17 2017-12-17 Outpatient [facility] [id number] 00:00:00 00:00:00 2017-11-10 2017-11-10 Outpatient [facility] [id number] 00:00:00 00:00:00 2017-10-29 2017-10-29 Outpatient [facility] [id number] 00:00:00 00:00:00 2017-10-06 2017-10-06 Outpatient [facility] [id number] 00:00:00 00:00:00 2017-09-15 2017-09-15 Outpatient [facility] [id number] 09:41:29 09:41:29 2017-08-27 2017-08-27 [facility] [id number] 08:29:31 08:29:31 2017-08-26 2017-08-26 Outpatient [facility] [id number] 00:00:00 00:00:00 2017-08-21 2017-08-21 Outpatient [facility] [id number] 13:11:02 13:11:02 2017-08-17 2017-08-17 Outpatient [facility] [id number] 00:00:00 00:00:00 2017-08-13 2017-08-13 Outpatient [facility] [id number] 00:00:00 00:00:00 2017-07-10 2017-07-10 [facility] [id number] 11:10:51 11:10:51 2017-07-10 2017-07-10 [facility] [id number] 10:58:18 10:58:18 2017-07-10 2017-07-10 Out[facility] [id number] 10:27:13 10:27:13 2017-07-09 2017-07-09 [facility] [id number] 00:00:00 00:00:00 2017-07-08 2017-07-08 Out[facility] [id number] 09:18:37 09:18:37 2017-07-08 2017-07-08 Outpatient [facility] [id number] 00:00:00 00:00:00 2017-07-08 2017-07-08 Outpatient [facility] [id number] 00:00:00 00:00:00 2017-07-08 2017-07-08 Outpatient [facility] [id number] 00:00:00 00:00:00 2017-06-30 2017-06-30 Outpatient [facility] [id number] 00:00:00 00:00:00 2017-06-29 2017-06-29 Outpatient [facility] [id number] 00:00:00 00:00:00 2017-06-18 2017-06-18 Outpatient [facility] [id number] 00:00:00 00:00:00 2017-05-07 2017-05-07 Outpatient [facility] [id number] 00:00:00 00:00:00 2017-04-21 2017-04-21 Outpatient [facility] [id number] 10:37:11 10:37:11 2017-04-21 2017-04-21 Outpatient [facility] [id number] 10:22:34 10:22:34 2017-04-21 2017-04-21 Outpatient [facility] [id number] 00:00:00 00:00:00 2017-04-14 2017-04-14 Outpatient [facility] [id number] 00:00:00 00:00:00 2017-04-14 2017-04-14 Out[facility] [id number] 00:00:00 00:00:00 2017-02-23 2017-02-23 Out[facility] [id number] 00:00:00 00:00:00 2017-02-18 2017-02-18 Outpatient [facility] [id number] 00:00:00 00:00:00 2017-02-18 2017-02-18 Outpatient [facility] [id number] 00:00:00 00:00:00 2017-02-11 2017-02-11 Outpatient [facility] [id number] 10:36:34 10:36:34 2017-02-03 2017-02-03 Outpatient [facility] [id number] 00:00:00 00:00:00 2017-01-29 2017-01-29 Outpatient [facility] [id number] 00:00:00 00:00:00 2017-01-20 2017-01-20 Outpatient [facility] [id number] 00:00:00 00:00:00 2017-01-06 2017-01-06 Outpatient [facility] [id number] 00:00:00 00:00:00 2016-12-29 2016-12-29 Outpatient [facility] [id number] 00:00:00 00:00:00 2016-12-22 2016-12-22 Outpatient [facility] [id number] 00:00:00 00:00:00 2016-12-05 2016-12-05 Outpatient [facility] [id number] 00:00:00 00:00:00 2016-11-25 2016-11-25 Outpatient [facility] [id number] 00:00:00 00:00:00 2016-11-07 2016-11-07 Outpatient [facility] [id number] 00:00:00 00:00:00 2016-10-22 2016-10-22 Outpatient [facility] [id number] 00:00:00 00:00:00 2016-10-22 2016-10-22 Outpatient [facility] [id number] 00:00:00 00:00:00 2016-10-14 2016-10-14 Outpatient [facility] [id number] 00:00:00 00:00:00 2016-10-14 2016-10-14 Outpatient [facility] [id number] 00:00:00 00:00:00 2016-10-14 2016-10-14 Outpatient [facility] [id number] 00:00:00 00:00:00 2016-10-13 2016-10-13 Outpatient [facility] [id number] 00:00:00 00:00:00 2016-10-06 2016-10-06 Outpatient [facility] [id number] 00:00:00 00:00:00 2016-09-26 2016-09-26 Outpatient [facility] [id number] 13:05:03 13:05:03 2016-09-26 2016-09-26 Outpatient [facility] [id number] 11:08:45 11:08:45 2016-09-26 2016-09-26 Outpatient [facility] [id number] 00:00:00 00:00:00 2016-09-23 2016-09-23 Outpatient [facility] [id number] 08:22:53 08:22:53 2016-09-22 2016-09-22 Outpatient [facility] [id number] 00:00:00 00:00:00 2016-09-02 2016-09-02 Outpatient [facility] [id number] 10:13:54 10:13:54 2016-09-02 2016-09-02 Outpatient [facility] [id number] 09:14:14 09:14:14 2016-09-01 2016-09-01 Outpatient [facility] [id number] 00:00:00 00:00:00 2016-08-27 2016-08-27 Outpatient [facility] [id number] 12:05:53 12:05:53 2016-08-27 2016-08-27 Outpatient [facility] [id number] 00:00:00 00:00:00 2016-08-06 2016-08-06 Outpatient [facility] [id number] 09:30:09 09:30:09 2016-08-05 2016-08-05 Outpatient [facility] [id number] 07:45:01 07:45:01 2016-08-05 2016-08-05 Outpatient [facility] [id number] 07:31:35 07:31:35 2016-08-05 2016-08-05 Outpatient [facility] [id number] 07:03:38 07:03:38 2016-08-05 2016-08-05 Outpatient [facility] [id number] 00:00:00 00:00:00 2016-07-30 2016-07-30 Outpatient [facility] [id number] 08:54:41 08:54:41 2016-07-30 2016-07-30 Outpatient [facility] [id number] 08:31:03 08:31:03 2016-07-30 2016-07-30 Outpatient [facility] [id number] 00:00:00 00:00:00 2016-07-04 2016-07-04 Outpatient [facility] [id number] 13:13:54 13:13:54 2016-06-18 2016-06-18 Emergency [facility] [id number] 06:01:16 06:01:16 2016-06-18 2016-06-18 Emergency [facility] [id number] 03:35:11 03:35:11 2016-06-12 2016-06-12 Outpatient [facility] [id number] 15:43:01 15:43:01 2016-06-10 2016-06-10 Outpatient [facility] [id number] 15:07:17 15:07:17 2016-06-03 2016-06-03 Emergency [facility] [id number] 22:18:53 22:18:53 2016-06-03 2016-06-03 Emergency [facility] [id number] 21:25:09 21:25:09 2016-06-03 2016-06-03 Outpatient [facility] [id number] 13:20:06 13:20:06 2016-04-24 2016-04-24 Outpatient [facility] [id number] 15:07:56 15:07:56 2016-04-01 2016-04-01 Outpatient [facility] [id number] 00:00:00 00:00:00 2016-03-19 2016-03-19 Outpatient [facility] [id number] 09:28:43 09:28:43 2016-03-17 2016-03-17 Outpatient [facility] [id number] 14:23:13 14:23:13 2016-03-17 2016-03-17 Outpatient [facility] [id number] 11:07:20 11:07:20 2016-03-17 2016-03-17 Outpatient [facility] [id number] 10:16:12 10:16:12 2016-03-11 2016-03-11 Outpatient [facility] [id number] 11:14:32 11:14:32 2016-02-18 2016-02-18 Outpatient [facility] [id number] 10:29:58 10:29:58 2016-02-12 2016-02-12 Outpatient [facility] [id number] 11:32:37 11:32:37 2016-02-12 2016-02-12 Outpatient [facility] [id number] 10:50:02 10:50:02 2016-02-08 2016-02-08 Outpatient [facility] [id number] 09:42:08 09:42:08 Results Test Description Test Time [...] to the main Lab for analysis. POC [id number] 07:41:17 Test Item Value Reference Range Comments Glucose POC (test 268 mg/dL 70-115 Notify RN or MDIf you consider code=Glucose POC) your patient critically ill, the Eliza-Accu Check Infrom II meter should not be used for Glucose determination. Draw a venous Glucose and send to the main Lab for analysis. POC [id number] 20:06:15 Test Item Value Reference Range Comments Glucose POC (test 259 mg/dL 70-115 If you consider your patient code=Glucose POC) critically ill, the Eliza-Accu Check Infrom II meter should not be used for Glucose determination. Draw a venous Glucose and send to the main Lab for analysis. POC [id number] 16:24:53 Test Item Value Reference Range Comments Glucose POC (test 171 mg/dL 70-115 If you consider your patient code=Glucose POC) critically ill, the Eliza-Accu Check Infrom II meter should not be used for Glucose determination. Draw a venous Glucose and send to the main Lab for analysis. Troponin [id number] 13:20:34 Test Item Value Reference Range Comments [...] a diagnosis of chronic myocardial injury. Creatine [id number] 13:19:47 Test Item Value Reference Range Comments CK (test code=CK) 138 U/L 39-308 Creatine Kinase MB [id number] 13:18:50 Test Item Value Reference Range Comments CKMB (test code=CKMB) 4.8 ng/mL 0.0-4.9 Creatine Kinase MB [id number] 13:18:50 Test Item Value Reference Range Comments CKMB (test code=CKMB) 4.8 ng/mL 0.0-4.9 CKMB % (test code=CKMB %) 3.5 % 0.0-3.4 Drugs of Abuse Urine [id number] 13:05:26 Test Item Value Reference Range Comments [...] (test Negative Negative code=Cannabinoid Screen Ur) POC [id number] 11:32:18 Test Item Value Reference Range Comments Glucose POC (test 296 mg/dL 70-115 If you consider your patient code=Glucose POC) critically ill, the Eliza-Accu Check Infrom II meter should not be used for Glucose determination. Draw a venous Glucose and send to the main Lab for analysis. Thyroid Stimulating Wtfxvyf7930-56-53 07:33:08 Test Item Value Reference Range Comments TSH (test code=TSH) 1.020 mIU/mL 0.270-4.200 Hemoglobin [id number] 07:32:52 Test Item Value Reference Range Comments Hemoglobin A1c (test 11.0 % 4.8-5.9 Non Diabetic 4.8-5.9%Diabetic code=Hemoglobin A1c) <7.0% Lipid [id number] 07:27:53 Test Item Value Reference Range Comments Cholesterol Total (test 156 mg/dL 0-200 RISK OF HEART code=Cholesterol Total) DISEASEPublished by [place] [employer] Analyte Optimal Borderline Increased RiskCHOL [...] when Triglyceride is greater than 400. Magnesium Datna9991-20-99 07:27:53 Test Item Value Reference Range Comments Magnesium Level (test code=Magnesium Level) 1.5 mg/dL 1.7-2.5 Phosphorus [id number] 07:27:53 Test Item Value Reference Range Comments Phosphorus Level (test code=Phosphorus Level) 2.80 mg/dL 2.70-4.50 Comprehensive Metabolic [id number] 07:27:52 Test Item Value Reference Range Comments [...] (test code=A/G Ratio) 1.4 ratio Comprehensive Metabolic [id number] 07:27:52 Test Item Value Reference Range Comments [...] is not provided, and the patient is -[place], multiply by 1.212. If sex is not [...] the National Kidney Foundation, http://nkdep.nih.gov Comprehensive Metabolic [id number] 07:27:52 Test Item Value Reference Range Comments [...] is not provided, and the patient is -[place], multiply by 1.212. If sex is not [...] is not provided, and the patient is -[place], multiply by 1.212. If sex is not [...] by the National Kidney Foundation, http://nkdep.nih.gov POC [id number] 07:20:10 Test Item Value Reference Range Comments Glucose POC (test 225 mg/dL 70-115 If you consider your patient code=Glucose POC) critically ill, the Eliza-Accu Check Infrom II meter should not be used for Glucose determination. Draw a venous Glucose and send to the main Lab for analysis. Creatine [id number] 07:19:03 Test Item Value Reference Range Comments CK (test code=CK) 119 U/L 39-308 Troponin [id number] 07:19:03 Test Item Value Reference Range Comments [...] the 99th percentile in serial measurements. Stable MRAKELL levels (<20%) delta above the 99th percentile URL would support a diagnosis of chronic myocardial injury. Creatine Kinase MB umkpqtqv3077-05-45 07:17:15 Test Item Value Reference Range Comments CKMB (test code=CKMB) 3.8 ng/mL 0.0-4.9 Creatine Kinase MB umzumqay2478-56-94 07:17:15 Test Item Value Reference Range Comments CKMB (test code=CKMB) 3.8 ng/mL 0.0-4.9 CKMB % (test code=CKMB %) 3.2 % 0.0-3.4 Complete Blood Count without [id number] 06:59:02 Test Item Value Reference Range Comments [...] x10 IPF (test code=IPF) 0 % POC [id number] 06:12:19 Test Item Value Reference Range Comments Glucose POC (test 267 mg/dL 70-115 If you consider your patient code=Glucose POC) critically ill, the Eliza-Accu Check Infrom II meter should not be used for Glucose determination. Draw a venous Glucose and send to the main Lab for analysis. POC [id number] 05:00:38 Test Item Value Reference Range Comments Glucose POC (test 61 mg/dL 70-115 If you consider your patient code=Glucose POC) critically ill, the Eliza-Accu Check Infrom II meter should not be used for Glucose determination. Draw a venous Glucose and send to the main Lab for analysis. POC [id number] 04:01:42 Test Item Value Reference Range Comments Glucose POC (test 151 mg/dL 70-115 Notify RN or MDIf you consider code=Glucose POC) your patient critically ill, the Eliza-Accu Check Infrom II meter should not be used for Glucose determination. Draw a venous Glucose and send to the main Lab for analysis. POC [id number] 03:15:14 Test Item Value Reference Range Comments Glucose POC (test 501 mg/dL 70-115 Notify RN or MDIf you consider code=Glucose POC) your patient critically ill, the Elzia-Accu Check Infrom II meter should not be used for Glucose determination. Draw a venous Glucose and send to the main Lab for analysis. Lactic Acid, Plasma (Venous)2018-10-03 02:23:55 Test Item Value Reference Range Comments Lactic Acid, Plasma (Venous) (test code=Lactic 1.9 mmol/L 0.5-1.9 Acid, Plasma (Venous)) POC [id number] 02:08:55 Test Item Value Reference Range Comments [...] Site (test code=Draw Site) Brachial. R POC [id number] 01:25:51 Test Item Value Reference Range Comments Glucose POC (test 366 mg/dL 70-115 If you consider your patient code=Glucose POC) critically ill, the Eliza-Accu Check Infrom II meter should not be used for Glucose determination. Draw a venous Glucose and send to the main Lab for analysis. [id number] 22:30:52 Test Item Value Reference Range Comments Acetone (Ketones) (test code=Acetone (Ketones)) Negative Negative Lot # (test code=Lot #) [id number] Expiration Dt (test code=Expiration Dt) [id number] Neg Control (test code=Neg Control) Negative Pos Control (test code=Pos Control) Positive Urinalysis with Culture, if axornjame4425-05-17 22:29:03 Test Item Value Reference Range Comments [...] by rule Micro Ind?) GL_SJM_UA_MICRO_IND Comprehensive Metabolic Wjrge1919-43-03 22:13:44 Test Item Value Reference Range Comments [...] is not provided, and the patient is -[place], multiply by 1.212. If sex is not [...] is not provided, and the patient is -[place], multiply by 1.212. If sex is not [...] by the National Kidney Foundation, http://nkdep.nih.gov Alcohol Ryprj1026-14-23 22:02:32 Test Item Value Reference Range Comments Ethanol Level (test 0.30 g/dL 0.00-0.01 Critical results called to RN, code=Ethanol Level) Cathy Hardy at 10/02/2018 22:01:54 CDT_ by RS_. Read back and verified? _yesIntoxicated 0.080 g/dL or more Ethanol Inst (test 302 code=Ethanol Inst) Magnesium [id number] 21:53:52 Test Item Value Reference Range Comments Magnesium Level (test code=Magnesium Level) 1.6 mg/dL 1.7-2.5 Phosphorus [id number] 21:53:52 Test Item Value Reference Range Comments Phosphorus Level (test code=Phosphorus Level) 4.40 mg/dL 2.70-4.50 Automated Eylktgdpnsvt8480-81-95 21:32:53 Test Item Value Reference Range Comments Neutro Auto (test code=Neutro Auto) 57.7 % 36.0-70.0 Lymph Auto (test code=Lymph Auto) 28.4 % 12.0-44.0 [place] Auto (test code=[place] Auto) 10.8 % 0.0-11.0 Eos, Auto (test code=Eos, Auto) 1.4 % 0.0-7.0 Basophil Auto (test code=Basophil Auto) 0.7 % 0.0-2.0 Neutro Absolute (test code=Neutro Absolute) 5.5 x10 1.6-7.4 Lymph Absolute (test code=Lymph Absolute) 2.69 x10 .50-4.60 [place] Absolute (test code=[place] Absolute) 1.02 x10 .00-1.20 Eos Absolute (test code=Eos Absolute) 0.13 x10 0.00-0.74 Baso Absolute (test code=Baso Absolute) 0.07 x10 0.00-0.21 IG [id number] 21:32:53 Test Item Value Reference Range Comments IG (test code=IG) 1.0 % 0.0-5.0 IG Abs (test code=IG Abs) 0 x10 Complete Blood Count with Vzzxfepljshm1101-30-98 21:32:52 Test Item Value Reference Range Comments [...] x10 IPF (test code=IPF) 0 % POC [id number] 20:55:21 Test Item Value Reference Range Comments [...] (test code=Draw Site) Radial. R COMPREHENSIVE METABOLIC [id number] 22:26:00 Test Item Value Reference Range Comments [...] ALKALINE PHOSPHATASE (test 255 UNITS/L 38-126 code=ALKP) [id number] 22:26:00 Test Item Value Reference Range Comments ALCOHOL (test code=ALC) 282.0 MG/DL <10 CALLED TO TRUDY Ortiz & READBACK ON 08/25/18 AT 2226 Elizabeth Madrigal CBC W/O [id number] 22:00:00 Test Item Value Reference Range Comments [...] code=NRBC#) 0.00 K/mm3 0.0-0.1 - XR CHEST [id number] 21:09:00 Patient Name: PRIYANKA EVANGELISTA Unit No: [id number] EXAMS: CPT CODE: [id number] XR CHEST 1V 88886 Location of dictation: B2 Portable chest one [...] AlbinaPXC Orig Print D/T: S: 08/25/2018 (2112) [facility] NAME: PRIYANKA EVANGELISTA [id number] PHYS: [place] [address] : 1965 AGE: 53 SEX: M LOC: Z.ERS PHONE #: [phone] EXAM DATE: 08/25/2018 STATUS: PRE ER FAX #: [phone] RADIOLOGY NO: PAGE 1 Signed ReportGLUCOSE BEDSIDE [id number] 20:44:00 Test Item Value Reference Range Comments GLUCOSE BEDSIDE TESTING (test > 600 MG/DL 60-99 Notified Nurse~ code=GLUBED) XR Ribs w/ PA Chest Vgdawpfiw5266-79-81 01:15:17Patient: PRIYANKA EVANGELISTA Date/Time07/20/2018 00: 30 CDTReason for ExamInjuryReportLOCATION: [id number]: 53-year-old male who presents with rib pain.COMMENT:A [...] LSigned (Electronic Signature): 07/20/2018 1:15 amGLUCOSE BEDSIDE [id number] 16:12:00 Test Item Value Reference Range Comments GLUCOSE BEDSIDE TESTING (test code=GLUBED) 271 MG/DL 60-99 [id number] 14:56:00 Test Item Value Reference Range Comments ALCOHOL (test code=ALC) 296.0 MG/DL <10 CALLED TO FANTASMA& READBACK ON 06/10/18 AT 1456 BY Romina Valdes HEPATIC FUNCTION [id number] 14:54:00 Test Item Value Reference Range Comments TOTAL PROTEIN (test code=PROT) 8.9 G/DL 6.2-7.6 ALBUMIN (test code=ALB) 5.2 G/DL 3.5-5.0 BILIRUBIN TOTAL (test code=BILT) 0.7 MG/DL 0.2-1.3 BILIRUBIN DIRECT (test code=BILD) 0.0 MG/DL 0.0-0.3 SGOT/AST (test code=AST) 48 UNITS/L 17-59 SGPT/ALT (test code=ALT) 39 UNITS/L 21-72 ALKALINE PHOSPHATASE (test code=ALKP) 317 UNITS/L 38-126 DRUGS OF ABUSE SCREEN [id number] 14:16:00 Test Item Value Reference Range Comments [...] off Value: 25 ng/mL code=PHENCU) BASIC METABOLIC [id number] 14:05:00 Test Item Value Reference Range Comments [...] CALCIUM (test code=CA) 9.5 MG/DL 8.4-10.2 URINALYSIS [id number] 14:00:00 Test Item Value Reference Range Comments [...] NO CULTURE Culture Chk code=UACULT) Criteria URINALYSIS [id number] 13:59:00 Test Item Value Reference Range Comments [...] NEEDED? (test code=UACULT) Criteria Culture Chk PROTHROMBIN [id number] 13:41:00 Test Item Value Reference Range Comments [...] systemic embolism. 3.0 - 4.5 CBC W/AUTO [id number] 13:30:00 Test Item Value Reference Range Comments [...] (test code=NRBC#) 0.00 K/mm3 0.0-0.1 GLUCOSE BEDSIDE [id number] 13:01:00 Test Item Value Reference Range Comments GLUCOSE BEDSIDE TESTING (test code=GLUBED) 427 MG/DL 60-99 Notified Nurse~ CHEMISTRY 8 [id number] 13:00:00 Test Item Value Reference Range Comments [...] Range: > or=60 ml/min/1.73 m2 CHEMISTRY 8 [id number] 13:00:00 Test Item Value Reference Range Comments [...] Range: > or=60 ml/min/1.73 m2 BASIC METABOLIC [id number] 11:41:00 Test Item Value Reference Range Comments [...] (test code=CA) 8.2 MG/DL 8.4-10.2 CBC W/AUTO [id number] 11:37:00 Test Item Value Reference Range Comments [...] RBC # (test code=NRBC#) 0.00 K/mm3 0.0-0.1 [id number] 11:00:00 Test Item Value Reference Range Comments ALCOHOL (test code=ALC) 323.0 MG/DL <10 CALLED TO BERTHA.T& READBACK ON 06/08/18 AT 1100 BY Romina Valdes - XR HIP W/PEL UNI 2+V [id number] 09:57:00 Patient Name: PRIYANKA EVANGELISTA Unit No: [id number] EXAMS: CPT CODE: [id number] XR HIP W/PEL UNI 2+[place] [address] Right hip History: pain Comparison: May 31, [...] Carter Chatman, RT(R) Transcrpt Date/Tm/Trnsp: 06/08 (0957) t.SDR.[facility] OrigPrint D/T: S: 06/08/2018 (1001) [facility] NAME: PRIYANKA EVANGELISTA [id number] PHYS: [place] [address] : 1965 AGE : 53 SEX: M LOC: UNK PHONE #: [phone] EXAM DATE: 06/08/2018 STATUS: DEP FAX #: [phone] RADIOLOGY NO: PAGE 1 Signed Report- XR HIP W/PEL UNI 2+V [id number] 09:57:00 Patient Name: PRIYANKA EVANGELISTA Unit No: [id number] EXAMS: CPT CODE: [id number] XR HIP W/PEL UNI 2+V RT 87254 Right hip History: pain Comparison: May 31, [...] (0957) t.SDR.PMT OrigPrint D/T: S: 02/2019 (1001) [facility] NAME: PRIYANKA EVANGELISTA [id number] PHYS : [place] [address] : 02/1966 AGE: 53 SEX: M LOC: KATHY PHONE #: [phone] EXAM DATE: 06/08/2018 STATUS: REG ER FAX #: [phone] RADIOLOGY NO: PAGE 1 Signed ReportGLUCOSE BEDSIDE [id number] 12:55:00 Test Item Value Reference Range Comments GLUCOSE BEDSIDE TESTING (test code=GLUBED) 160 MG/DL 60-99 GLUCOSE BEDSIDE [id number] 10:49:00 Test Item Value Reference Range Comments GLUCOSE BEDSIDE TESTING (test code=GLUBED) 186 MG/DL 60-99 BASIC METABOLIC [id number] 06:15:00 Test Item Value Reference Range Comments [...] (test code=CA) 8.8 MG/DL 8.4-10.2 CBC W/AUTO [id number] 05:54:00 Test Item Value Reference Range Comments [...] (test code=NRBC#) 0.00 K/mm3 0.0-0.1 GLUCOSE BEDSIDE [id number] 21:08:00 Test Item Value Reference Range Comments GLUCOSE BEDSIDE TESTING (test code=GLUBED) 198 MG/DL 60-99 GLUCOSE BEDSIDE [id number] 18:21:00 Test Item Value Reference Range Comments GLUCOSE BEDSIDE TESTING (test code=GLUBED) 217 MG/DL 60-99 [id number] 13:23:00 Test Item Value Reference Range Comments MAGNESIUM (test code=MAG) 1.6 MG/DL 1.6-2.3 GLUCOSE BEDSIDE [id number] 12:58:00 Test Item Value Reference Range Comments GLUCOSE BEDSIDE TESTING (test code=GLUBED) 334 MG/DL 60-99 GLUCOSE BEDSIDE [id number] 12:40:00 Test Item Value Reference Range Comments GLUCOSE BEDSIDE TESTING (test code=GLUBED) 193 MG/DL 60-99 GLUCOSE BEDSIDE [id number] 10:59:00 Test Item Value Reference Range Comments GLUCOSE BEDSIDE TESTING (test code=GLUBED) 173 MG/DL 60-99 BASIC METABOLIC [id number] 06:55:00 Test Item Value Reference Range Comments [...] (test code=CA) 8.8 MG/DL 8.4-10.2 GLUCOSE BEDSIDE [id number] 06:37:00 Test Item Value Reference Range Comments GLUCOSE BEDSIDE TESTING (test code=GLUBED) 220 MG/DL 60-99 CBC W/AUTO [id number] 06:17:00 Test Item Value Reference Range Comments [...] RBC # (test code=NRBC#) 0.00 K/mm3 0.0-0.1 [id number] 21:42:00 Test Item Value Reference Range Comments MAGNESIUM (test code=MAG) 1.9 MG/DL 1.6-2.3 GLUCOSE BEDSIDE [id number] 21:08:00 Test Item Value Reference Range Comments GLUCOSE BEDSIDE TESTING (test code=GLUBED) 101 MG/DL 60-99 GLUCOSE BEDSIDE [id number] 15:54:00 Test Item Value Reference Range Comments GLUCOSE BEDSIDE TESTING (test code=GLUBED) 261 MG/DL 60-99 Notified Nurse~ GLUCOSE BEDSIDE [id number] 11:18:00 Test Item Value Reference Range Comments GLUCOSE BEDSIDE TESTING (test code=GLUBED) 321 MG/DL 60-99 Notified Nurse~ BASIC METABOLIC [id number] 08:23:00 Test Item Value Reference Range Comments SODIUM (test code=NA) 121 MMOL/L 137-145 POTASSIUM (test code=K) 5.0 MMOL/L 3.5-5.1 CHLORIDE (test code=CL) 84 MMOL/L 98-107 CARBON DIOXIDE (test code=CO2) 27 MMOL/L 22-30 ANION GAP (test code=GAP) 15 MMOL/L 14-24 GLUCOSE (test code=GLU) 344 MG/DL 74-106 [facility] READBACK ON 06/01/18 AT 0822 BY Romina Valdes BLOOD UREA NITROGEN (test 14 MG/DL 9-20 code=BUN) GLOMERULAR FILTRATION RATE > 60 Reporting units: ml/min/1.73 (test code=GFR) m2 (Modified MDRD Formula)Reference Range: > or=60 ml/min/1.73 m2 CREATININE (test code=CREAT) 0.80 MG/DL 0.66-1.25 CALCIUM (test code=CA) 8.9 MG/DL 8.4-10.2 CBC W/AUTO [id number] 07:18:00 Test Item Value Reference Range Comments [...] (test code=NRBC#) 0.00 K/mm3 0.0-0.1 GLUCOSE BEDSIDE [id number] 06:36:00 Test Item Value Reference Range Comments GLUCOSE BEDSIDE TESTING (test code=GLUBED) 296 MG/DL 60-99 [id number] 22:45:00 Test Item Value Reference Range Comments MAGNESIUM (test code=MAG) 1.2 MG/DL 1.6-2.3 GLUCOSE BEDSIDE [id number] 19:56:00 Test Item Value Reference Range Comments GLUCOSE BEDSIDE TESTING (test code=GLUBED) 316 MG/DL 60-99 Notified Nurse~ - XR HIP W/PEL UNI 2+V [id number] 13:13:00 Patient Name: PRIYANKA EVANGELISTA Unit No: [id number] EXAMS: CPT CODE: [id number] XR HIP W/PEL UNI 2+[place] [address] Right hip History: RIGHT FEMUR FRACTURE Comparison: [...] t.ANGLER.PMT Orig Print D/T: S: 05/31/2018 (1316) [facility] NAME: PRIYANKA EVANGELISTA [id number] PHYS: [place] [address] : 1965 AGE: 53 SEX: M LOC: I-Pulse PHONE #: [phone] EXAM DATE: 05/31/2018 STATUS: DIS IN FAX #: [phone] RADIOLOGY NO: PAGE 1 Signed Report- XR HIP W/ PEL UNI 2+V [id number] 13:13:00 Patient Name: PRIYANKA EVANGELISTA Unit No: [id number] EXAMS: CPT CODE: [id number] XR HIP W/PEL UNI 2+[place] [address] Right hip History: RIGHT FEMUR FRACTURE Comparison: [...] Technologist: Rohan Machado RT(R) Transcrpt Date/Tm/Trnsp: 05/31/2018 (9813) t.SDR.PMT Orig Print D/T: S: 05/31/2018 (7672) [facility] NAME: PRIYANKA EVANGELISTA [id number] PHYS: [place] [address] : 1965 AGE: 53 SEX: M LOC: Z.534 A PHONE #: [phone] EXAM DATE: 05/31/2018 STATUS: ADM IN FAX #: [phone] RADIOLOGY NO: PAGE 1 Signed [id number] 12:56:00 Test Item Value Reference Range Comments HEMOGLOBIN (test code=HGB) 11.1 G/DL 12.4-16.7 Specimen comments: Patient in PACUComments to Aviation Survival Technician: Patient in [id number] 12:56:00 Test Item Value Reference Range Comments HEMATOCRIT (test code=HCT) 34.1 % 35.9-49.5 Specimen comments: Patient in PACUComments to Aviation Survival Technician: Patient in PACUGLUCOSE BEDSIDE [id number] 09:21:00 Test Item Value Reference Range Comments [...] HIGH.........130-159 mg/dL HIGH.........160-189 mg/dL VERY HIGH.........>/=190 mg/dL [id number] 07:50:00 Test Item Value Reference Range Comments MAGNESIUM (test code=MAG) 1.3 MG/DL 1.6-2.3 THYROID STIMULATING [id number] 07:50:00 Test Item Value Reference Range Comments [...] HIGH.........130-159 mg/dL HIGH.........160-189 mg/dL VERY HIGH.........>/=190 mg/dL [id number] 07:30:00 Test Item Value Reference Range Comments MAGNESIUM (test code=MAG) 1.3 MG/DL 1.6-2.3 THYROID STIMULATING [id number] 07:30:00 Test Item Value Reference Range Comments THYROID STIMULATING HORMONE (test code=TSH) MIU/L 0.465-4.68 LIPID PROFILE (CORONARY RISK)2018-05-31 07:19:00 Test Item Value Reference Range Comments TRIGLYCERIDES (test code=TRIG) 93 MG/DL TRIGLYCERIDES REFERENCE RANGE:Normal: <150 mg/dLBorderline High: 150-199 mg/dLHigh: 200-499 mg/dLVery High: >=500 mg/dL CHOLESTEROL (test code=CHOL) 191 MG/DL <200 HDL CHOLESTEROL (test 58 MG/DL 40-59 code=HDL) LIPOPROTEIN LDL (test MG/DL 0-99 code=LDL) [id number] 07:19:00 Test Item Value Reference Range Comments MAGNESIUM (test code=MAG) 1.3 MG/DL 1.6-2.3 THYROID STIMULATING [id number] 07:19:00 Test Item Value Reference Range Comments THYROID STIMULATING HORMONE (test code=TSH) MIU/L 0.465-4.68 GLYCOSYLATED HEMOGLOBIN [id number] 22:01:00 Test Item Value Reference Range Comments [...] (test 260 MG/DL 70-110 code=MBG) COMPREHENSIVE METABOLIC [id number] 20:45:00 Test Item Value Reference Range Comments SODIUM (test code=NA) 139 MMOL/L 137-145 POTASSIUM (test code=K) 4.9 MMOL/L 3.5-5.1 CHLORIDE (test code=CL) 101 MMOL/L 98-107 CARBON DIOXIDE (test code=CO2) 24 MMOL/L 22-30 ANION GAP (test code=GAP) 19 MMOL/L 14-24 GLUCOSE (test code=GLU) 332 MG/DL 74-106 CALLED TO [facility] YLW=794& READBACK ON 05/30/18 AT 2045 BY Jeremías [...] (test 192 UNITS/L 38-126 code=ALKP) GLUCOSE BEDSIDE [id number] 16:40:00 Test Item Value Reference Range Comments GLUCOSE BEDSIDE TESTING (test code=GLUBED) 314 MG/DL 60-99 URINALYSIS [id number] 15:07:00 Test Item Value Reference Range Comments [...] NEEDED? (test code=UACULT) Criteria Culture Chk URINALYSIS [id number] 15:07:00 Test Item Value Reference Range Comments [...] CULTURE Culture Chk code=UACULT) Criteria GLUCOSE BEDSIDE [id number] 12:16:00 Test Item Value Reference Range Comments GLUCOSE BEDSIDE TESTING (test code=GLUBED) 368 MG/DL 60-99 COMPREHENSIVE METABOLIC [id number] 11:34:00 Test Item Value Reference Range Comments [...] ALKALINE PHOSPHATASE (test 204 UNITS/L 38-126 code=ALKP) [id number] 11:34:00 Test Item Value Reference Range Comments ALCOHOL (test code=ALC) 348.0 MG/DL <[address] ALFONSO& READBACK ON 05/30/18 AT 1133 BY Elizabeth Machado PROTHROMBIN [id number] 11:11:00 Test Item Value Reference Range Comments [...] recurrent systemic embolism. 3.0 - 4.5 PTT [id number] 11:11:00 Test Item Value Reference Range Comments PTT ACTIVATED (test code=APTT) 25.5 SECONDS 22.0-33.0 CBC W/AUTO [id number] 10:57:00 Test Item Value Reference Range Comments [...] 0.0-0.1 - XR HIP W/PEL UNI 2+V [id number] 09:50:00 Patient Name: PRIYANKA EVANGELISTA Unit No: [id number] EXAMS: CPT CODE: [id number] XR HIP W/PEL UNI 2+[place] [address] Location code: R 16 Right hip 2 [...] (0950) [id number] Orig Print D/T: S: 05/30/2018 (2753) [facility] NAME: PRIYANKA EVANGELISTA [id number] PHYS: [place] [address] : 1965 AGE: 53 SEX: M LOC: I-Pulse PHONE #: [phone] EXAM DATE: 05/30/2018 STATUS: DIS IN FAX #: [phone] RADIOLOGY NO: PAGE 1 Signed Report- XR HIP W/PEL UNI 2+V [id number] 09:50:00 Patient Name: PRIYANKA EVANGELISTA Unit No: [id number] EXAMS: CPT CODE: [id number] XR HIP W/PEL UNI 2+[place] [address] Location code: R 16 Right hip 2 [...] (0950) AlbinaDRB1 Orig Print D/T: S: (0953) [facility] NAME: PRIYANKA EVANGELISTA [id number] PHYS : [place] [address] : 02/1966 AGE: 53 SEX: M LOC: .ERS PHONE #: [phone] EXAM DATE: STATUS: PRE ER FAX #: [phone] RADIOLOGY NO: PAGE 1 Signed Report- XR HIP W/PEL UNI 2+V [id number] 14:25:00 Patient Name: PRIYANKA EVANGELISTA Unit No: [id number] EXAMS: CPT CODE: [id number] XR HIP W/PEL UNI 2+[place] [address] Fluoroscopy Left hip nailing FINDINGS: An intramedullary [...] (1425) AlbinaRK5 Orig Print D/T:S: 05/16/2016 (1428) [facility] NAME: PRIYANKA EVANGELISTA [id number] PHYS: [place] [address] : 1965 AGE: 51 SEX: M LOC: UNK PHONE #: [phone] EXAM DATE: 05/16/2016 STATUS: UNK FAX #: [phone] RADIOLOGY NO: PAGE 1 Signed Report- XR WRIST 3+V [id number] 19:15:00 Patient Name: PRIYANKA EVANGELISTA Unit No: [id number] EXAMS: CPT CODE: [id number] XR WRIST 3+[place] [address] Location n 13 Left Wrist, 3 views [...] Frederick Orig Print D/T: S: 01/31/2016 (1917) [facility] NAME: PRIYANKA EVANGELISTA [id number] PHYS: [place] [address] : 1965 AGE: 50 SEX: M LOC: I-Pulse PHONE #: [phone] EXAM DATE: 2015 STATUS: [employer] FAX #: [phone] RADIOLOGY NO: PAGE 1 Signed Report
--- OUTSIDE RECORDS SUMMARY | 2019-04-07 10:16 | XMS REPORT ---
[...] Problem Depression with anxiety F41.8 Active Problem longterm (current) use of insulin Z79.4 Active Problem GERD without esophagitis K21.9 Active Assessment HTN, goal below 130/80 I10 Active Assessment Chronic obstructive pulmonary J44.9 Active disease, unspecified COPD type Assessment Depression with anxiety F41.8 Active Assessment Mixed hyperlipidemia E78.2 Active Assessment Type 2 diabetes mellitus with E11.42 Active diabetic polyneuropathy Assessment Proteinuria, unspecified R80.9 Active Assessment roasterman (current) use of insulin Z79.4 Active Medications Medication Code Code Instructions Start End Status Dosage System Date Date Duloxetine HCl [facility] 91930008841 60 MG Oral Active TAKE 1 CAPSULE TWICE DAILY ProAir HFA [facility] 54036443982 108 (90 Base) Active 2 puffs as MCG/ACT needed Inhalation every 6 hrs Folic Acid [facility] 37379047336 1 MG Orally Active 1 tablet Once a day One Touch NDC 0 Once twice a Active one Delica test day strips Gabapentin [facility] 87436954479 600 MG Oral Active TAKE 1 TABLET BY MOUTH THREE TIMES A DAY Fenofibrate [facility] 08037069348 160 MG Oral Active take 1 tablet Once a day by mouth every day with supper Lisinopril [facility] 14149314934 20 MG Oral Once Active take 1 tablet a day by mouth every day Levetiracetam [facility] 77799453552 1000 MG Orally Dec Active 1 tablet Once a day 2018 Atorvastatin [facility] 44953280862 20 MG Orally Dec Active 1 tablet Calcium Once a day 2018 Metformin HCl [facility] 99142325807 1000 MG Orally Active 1 tablet with a BID meal Trazodone HCl [facility] 01803494859 100 MG Orally Dec Active 1 tablet at Once a day , bedtime 2018 Pantoprazole [facility] 10705543897 40 MG Orally Active 1 tablet Sodium Once a day Tramadol HCl [facility] 66485073518 50 MG Orally Active 1 tablet as Once a day PRN needed SEVERE PAIN Vicodin [facility] 92561470418 5-300 MG Orally Dec Inactive 1 tablet as every 6 hrs 17, needed 2018 Humulin R [facility] 48192584329 100 UNIT/ML Dec Active inject 2-18 Injection twice 13, units per a day 2019 sliding scale OneTouch Verio [facility] 79480437101 - In Vitro 4 Dec Active 1 test strip times a day 2018 Tresiba [facility] 36660317158 200 UNIT/ML Dec Active inject 30 units FlexTouch Subcutaneous 17, Once a day 2018 Cymbalta [facility] 18592228202 60 MG Orally Active 1 capsule Twice a day Insulin Syringe [facility] 12088739757 30G X 1/2 Active 1 syringe subcutaneously six times a day One Touch NDC 0 Active not defined Delica Lancets Humulin N [facility] 64800660730 100 UNIT/ML Inactive INJECT 20 UNITS Subcutaneous SUBCUTANEOUSLY 2 TIMES A DAY WITH MEALS Results No Known Results Summary Purpose eClinicalWorks Submission
[2019-04-07] MEDS ORDERED: Ringers Lactate 1,000 ML IV ONE (10:17)
[2019-04-07] MEDS ORDERED: MINERAL OIL, LITE 10 ML VIAL ONE (10:29)
[2019-04-07] MEDS ORDERED: LIDOCAINE 2% MPF 5 ML VIAL ONE (10:40)
[2019-04-07] MEDS ORDERED: propofoL 200 MG/20 ML VIAL IV ONE (10:40)
[2019-04-07] MEDS ORDERED: MIDAZOLAM HCL 2 MG/2 ML INJ ONE (10:40)
[2019-04-07] MEDS ORDERED: FENTANYL CITR 100 MCG/2 ML ONE (10:40)
[2019-04-07] MEDS ORDERED: OXYTOCIN 10 UNIT/ML ML IV ONE (10:41)
[2019-04-07] MEDS ORDERED: EPHEDRINE SULF 50 MG/ML VIAL ONE (11:05)
[2019-04-07 12:20] VITALS: TEMP 97.4
[2019-04-07] MEDS: MEPERIDINE HCL 50 MG/ML ONE ×2 (12:26→12:33)
[2019-04-07] MEDS ORDERED: ONDANSETRON 4 MG/2 ML VIAL ONE (12:26)
[2019-04-07 12:57] VITALS: O2SAT 98
[2019-04-07] MEDS ORDERED: CODEINE 30MG/APAP 300MG TAB PO ONE (13:10)
[2019-04-07] MEDS ORDERED: CODEINE 30MG/APAP 300MG TAB ONE (13:12)
--- NOTE | 2019-04-07 13:23 | EKG ---
Test Date: 2019-04-07 Test Time: 09:03:57 Hay Farmer: SWG MEASUREMENT RESULTS: Intervals: Rate: 76 IA: 134 QRSD: 88 QT: 382 QTc: 429 [place]el: P: 72 IA: 134 QRS: 66 T: 59 INTERPRETIVE STATEMENTS: Normal sinus rhythm Normal ECG Compared to ECG 12/20/2018 11:32:36 No significant changes Electronically Signed On 04-07-19 13:21:00 [employer] SOLUTION ARCHITECT by Dar Nolasco
[2019-04-07 14:05] VITALS: BP 112/78
--- NOTE | 2019-04-07 22:17 | OP ---
Surgeon: Yo Salinas MD Preoperative Diagnosis: Open wounds in the right hand and right forearm. Postoperative Diagnosis: Open wounds in the right hand and right forearm. Procedure Performed: Excision and simple closure of the wrist 3 cm, forearm 1.5 cm., 4.2 cm., 1.7 cm , 2.1 cm, right elbow 2.2 cm, and right volar forearm 1.9 cm. Debridement of skin of the dorsal hand . Anesthesia: General. Procedure In Detail: After satisfactory induction of general anesthesia, the right arm was prepped w ith Betadine scrub, Betadine paint, dry sterile drapes placed around. Curette, forceps, and a scalpe l was used to debride the skin on the dorsal hand. An elliptical incision was made over the multiple lesions of dorsal forearm, volar forearm, and elbow. The wounds were all jet lavaged irrigated and then closed with vertical mattress of simple sutures of 4-0 Prolene. This was 3 cm over the wrist, 1 .5, 4.2, 1.7, and 2.1 over the dorsal forearm, 2.2 cm over the right elbow and 1.9 cm over the volar forearm. Dressed with Xeroform, Kerlix. The patient tolerated the procedure well and returned to re covery. IRAIDA/DAVIN Voice ID: [id number] Report ID: [id number]
== END 2019-04-07 13:40 | disposition home or self-care (01) ==
LOC: ER 08:11 → DS 10:06
PROVIDERS: ATTEND Specialist
PROC: 0JQG0ZZ Repair Right Lower Arm Subcutaneous Tissue and Fascia, Open Approach (ICD-10-PCS; 2019-04-07)
PROC: 0JQJ0ZZ Repair Right Hand Subcutaneous Tissue and Fascia, Open Approach (ICD-10-PCS; principal; 2019-04-07 10:30)
DX: S61.401A Unspecified open wound of right hand, initial encounter (principal); S51.801A Unspecified open wound of right forearm, initial encounter
CPT/HCPCS: 96365; 93005; 85025; 80048; 36415; 85610; 82947; 80076; 88304; 71045; 99285; 12005; J2704; J2590; J2250; J3010; J2175; J0690; J7120; J2405; 88305

== ENCOUNTER 2019-06-11 02:38 | Inpatient (IN) | payer OTHER ==
--- OUTSIDE RECORDS SUMMARY | 2019-06-11 02:45 | XMS REPORT ---
:1965 [facility] [address] [place] [address] Care Team Providers Name Role Phone Unavailable [...] MHSW [id number] 00:28:00 00:28:00 2018-05-12 2018-05-12 Outpatient [facility] [id number] 00:00:00 00:00:00 2018-04-13 2018-04-13 Outpatient [facility] [id number] 00:00:00 00:00:00 2018-02-23 2018-02-23 Outpatient [facility] [id number] 00:00:00 00:00:00 2018-02-19 2018-02-19 Outpatient [facility] [id number] 00:00:00 00:00:00 2018-02-16 2018-02-16 Outpatient [facility] [id number] 00:00:00 00:00:00 2018-01-25 2018-01-25 Outpatient [facility] [id number] 00:00:00 00:00:00 2018-01-22 2018-01-22 Outpatient [facility] [id number] 15:47:04 15:47:04 2018-01-20 2018-01-20 Outpatient [facility] [id number] 00:00:00 00:00:00 2018-01-19 2018-01-19 Outpatient [facility] [id number] 15:13:11 15:13:11 2018-01-19 2018-01-19 Outpatient [facility] [id number] 00:00:00 00:00:00 2017-12-17 2017-12-17 Outpatient [facility] [id number] 00:00:00 00:00:00 2017-11-10 2017-11-10 Outpatient [facility] [id number] 00:00:00 00:00:00 2017-10-29 2017-10-29 Outpatient [facility] [id number] 00:00:00 00:00:00 2017-10-06 2017-10-06 Outpatient [facility] [id number] 00:00:00 00:00:00 2017-09-15 2017-09-15 Outpatient [facility] [id number] 09:41:29 09:41:29 2017-08-27 2017-08-27 Outpatient [facility] [id number] 08:29:31 08:29:31 2017-08-26 2017-08-26 Outpatient [facility] [id number] 00:00:00 00:00:00 2017-08-21 2017-08-21 Outpatient [facility] [id number] 13:11:02 13:11:02 2017-08-17 2017-08-17 Outpatient [facility] [id number] 00:00:00 00:00:00 2017-08-13 2017-08-13 Outpatient [facility] [id number] 00:00:00 00:00:00 2017-07-10 2017-07-10 Outpatient [facility] [id number] 11:10:51 11:10:51 2017-07-10 2017-07-10 Outpatient [facility] [id number] 10:58:18 10:58:18 2017-07-10 2017-07-10 Outpatient [facility] [id number] 10:27:13 10:27:13 2017-07-09 2017-07-09 Outpatient [facility] [id number] 00:00:00 00:00:00 2017-07-08 2017-07-08 Outpatient [facility] [id number] 09:18:37 09:18:37 2017-07-08 2017-07-08 Outpatient [facility] [id number] 00:00:00 00:00:00 2017-07-08 2017-07-08 Outpatient [facility] [id number] 00:00:00 00:00:00 2017-07-08 2017-07-08 Outpatient [facility] [id number] 00:00:00 00:00:00 2017-06-30 2017-06-30 Outpatient [facility] [id number] 00:00:00 00:00:00 2017-06-29 2017-06-29 Outpatient [facility] [id number] 00:00:00 00:00:00 2017-06-18 2017-06-18 Outpatient [facility] [id number] 00:00:00 00:00:00 2017-05-07 2017-05-07 Outpatient [facility] [id number] 00:00:00 00:00:00 2017-04-21 2017-04-21 Outpatient [facility] [id number] 10:37:11 10:37:11 2017-04-21 2017-04-21 Outpatient [facility] [id number] 10:22:34 10:22:34 2017-04-21 2017-04-21 Outpatient [facility] [id number] 00:00:00 00:00:00 2017-04-14 2017-04-14 Outpatient [facility] [id number] 00:00:00 00:00:00 2017-04-14 2017-04-14 Outpatient [facility] [id number] 00:00:00 00:00:00 2017-02-23 2017-02-23 Outpatient [facility] [id number] 00:00:00 00:00:00 2017-02-18 2017-02-18 Outpatient [facility] [id number] 00:00:00 00:00:00 2017-02-18 2017-02-18 Outpatient [facility] [id number] 00:00:00 00:00:00 2017-02-11 2017-02-11 Outpatient [facility] [id number] 10:36:34 10:36:34 2017-02-03 2017-02-03 Outpatient [facility] [id number] 00:00:00 00:00:00 2017-01-29 2017-01-29 Outpatient [facility] [id number] 00:00:00 00:00:00 2017-01-20 2017-01-20 Outpatient [facility] [id number] 00:00:00 00:00:00 2017-01-06 2017-01-06 Outpatient [facility] [id number] 00:00:00 00:00:00 2016-12-29 2016-12-29 Outpatient [facility] [id number] 00:00:00 00:00:00 2016-12-22 2016-12-22 Outpatient [facility] [id number] 00:00:00 00:00:00 2016-12-05 2016-12-05 Outpatient [facility] [id number] 00:00:00 00:00:00 2016-11-25 2016-11-25 Outpatient [facility] [id number] 00:00:00 00:00:00 2016-11-07 2016-11-07 Outpatient [facility] [id number] 00:00:00 00:00:00 2016-10-22 2016-10-22 Outpatient [facility] [id number] 00:00:00 00:00:00 2016-10-22 2016-10-22 Outpatient [facility] [id number] 00:00:00 00:00:00 2016-10-14 2016-10-14 Outpatient [facility] [id number] 00:00:00 00:00:00 2016-10-14 2016-10-14 Outpatient [facility] [id number] 00:00:00 00:00:00 2016-10-14 2016-10-14 Outpatient [facility] [id number] 00:00:00 00:00:00 2016-10-13 2016-10-13 Outpatient [facility] [id number] 00:00:00 00:00:00 2016-10-06 2016-10-06 Outpatient [facility] [id number] 00:00:00 00:00:00 2016-09-26 2016-09-26 Outpatient [facility] [id number] 13:05:03 13:05:03 2016-09-26 2016-09-26 Outpatient [facility] [id number] 11:08:45 11:08:45 2016-09-26 2016-09-26 Outpatient [facility] [id number] 00:00:00 00:00:00 2016-09-23 2016-09-23 Outpatient [facility] [id number] 08:22:53 08:22:53 2016-09-22 2016-09-22 Outpatient [facility] [id number] 00:00:00 00:00:00 2016-09-02 2016-09-02 Outpatient [facility] [id number] 10:13:54 10:13:54 2016-09-02 2016-09-02 Outpatient [facility] [id number] 09:14:14 09:14:14 2016-09-01 2016-09-01 Outpatient [facility] [id number] 00:00:00 00:00:00 2016-08-27 2016-08-27 Outpatient [facility] [id number] 12:05:53 12:05:53 2016-08-27 2016-08-27 Outpatient [facility] [id number] 00:00:00 00:00:00 2016-08-06 2016-08-06 Outpatient [facility] [id number] 09:30:09 09:30:09 2016-08-05 2016-08-05 Outpatient [facility] [id number] 07:45:01 07:45:01 2016-08-05 2016-08-05 Outpatient [facility] [id number] 07:31:35 07:31:35 2016-08-05 2016-08-05 Outpatient [facility] [id number] 07:03:38 07:03:38 2016-08-05 2016-08-05 Outpatient [facility] [id number] 00:00:00 00:00:00 2016-07-30 2016-07-30 Outpatient [facility] [id number] 08:54:41 08:54:41 2016-07-30 2016-07-30 Outpatient [facility] [id number] 08:31:03 08:31:03 2016-07-30 2016-07-30 Outpatient [facility] [id number] 00:00:00 00:00:00 2016-07-04 2016-07-04 Outpatient [facility] [id number] 13:13:54 13:13:54 2016-06-18 2016-06-18 Emergency [facility] [id number] 06:01:16 06:01:16 2016-06-18 2016-06-18 Emergency [facility] [id number] 03:35:11 03:35:11 2016-06-12 2016-06-12 Outpatient [facility] [id number] 15:43:01 15:43:01 2016-06-10 2016-06-10 Outpatient [facility] [id number] 15:07:17 15:07:17 2016-06-03 2016-06-03 Emergency [facility] [id number] 22:18:53 22:18:53 2016-06-03 2016-06-03 Emergency [facility] [id number] 21:25:09 21:25:09 2016-06-03 2016-06-03 Outpatient [facility] [id number] 13:20:06 13:20:06 2016-04-24 2016-04-24 Outpatient [facility] [id number] 15:07:56 15:07:56 2016-04-01 2016-04-01 Outpatient [facility] [id number] 00:00:00 00:00:00 2016-03-19 2016-03-19 Outpatient [facility] [id number] 09:28:43 09:28:43 2016-03-17 2016-03-17 Outpatient [facility] [id number] 14:23:13 14:23:13 2016-03-17 2016-03-17 Outpatient [facility] [id number] 11:07:20 11:07:20 2016-03-17 2016-03-17 Outpatient [facility] [id number] 10:16:12 10:16:12 2016-03-11 2016-03-11 Outpatient [facility] [id number] 11:14:32 11:14:32 2016-02-18 2016-02-18 Outpatient [facility] [id number] 10:29:58 10:29:58 2016-02-12 2016-02-12 Outpatient [facility] [id number] 11:32:37 11:32:37 2016-02-12 2016-02-12 Outpatient [facility] [id number] 10:50:02 10:50:02 2016-02-08 2016-02-08 Outpatient [facility] [id number] 09:42:08 09:42:08 Results Test Description Test Time [...] to the main Lab for analysis. POC [id number] 07:41:17 Test Item Value Reference Range Comments Glucose POC (test 268 mg/dL 70-115 Notify RN or MDIf you consider code=Glucose POC) your patient critically ill, the Eliza-Accu Check Infrom II meter should not be used for Glucose determination. Draw a venous Glucose and send to the main Lab for analysis. POC [id number] 20:06:15 Test Item Value Reference Range Comments Glucose POC (test 259 mg/dL 70-115 If you consider your patient code=Glucose POC) critically ill, the Eliza-Accu Check Infrom II meter should not be used for Glucose determination. Draw a venous Glucose and send to the main Lab for analysis. POC [id number] 16:24:53 Test Item Value Reference Range Comments Glucose POC (test 171 mg/dL 70-115 If you consider your patient code=Glucose POC) critically ill, the Eliza-Accu Check Infrom II meter should not be used for Glucose determination. Draw a venous Glucose and send to the main Lab for analysis. Troponin [id number] 13:20:34 Test Item Value Reference Range Comments [...] a diagnosis of chronic myocardial injury. Creatine Ipqine1456-03-15 13:19:47 Test Item Value Reference Range Comments CK (test code=CK) 138 U/L 39-308 Creatine Kinase MB [id number] 13:18:50 Test Item Value Reference Range Comments CKMB (test code=CKMB) 4.8 ng/mL 0.0-4.9 Creatine Kinase MB juswrutc3417-78-02 13:18:50 Test Item Value Reference Range Comments CKMB (test code=CKMB) 4.8 ng/mL 0.0-4.9 CKMB % (test code=CKMB %) 3.5 % 0.0-3.4 Drugs of Abuse Urine [id number] 13:05:26 Test Item Value Reference Range Comments [...] (test Negative Negative code=Cannabinoid Screen Ur) POC [id number] 11:32:18 Test Item Value Reference Range Comments Glucose POC (test 296 mg/dL 70-115 If you consider your patient code=Glucose POC) critically ill, the Eliza-Accu Check Infrom II meter should not be used for Glucose determination. Draw a venous Glucose and send to the main Lab for analysis. Thyroid Stimulating Xbqienp5183-40-49 07:33:08 Test Item Value Reference Range Comments TSH (test code=TSH) 1.020 mIU/mL 0.270-4.200 Hemoglobin [id number] 07:32:52 Test Item Value Reference Range Comments Hemoglobin A1c (test 11.0 % 4.8-5.9 Non Diabetic 4.8-5.9%Diabetic code=Hemoglobin A1c) <7.0% Lipid [id number] 07:27:53 Test Item Value Reference Range Comments Cholesterol Total (test 156 mg/dL 0-200 RISK OF HEART code=Cholesterol Total) DISEASEPublished by [place] [employer] Association Analyte Optimal Borderline Increased RiskCHOL [...] when Triglyceride is greater than 400. Magnesium Uindq1246-72-16 07:27:53 Test Item Value Reference Range Comments Magnesium Level (test code=Magnesium Level) 1.5 mg/dL 1.7-2.5 Phosphorus [id number] 07:27:53 Test Item Value Reference Range Comments Phosphorus Level (test code=Phosphorus Level) 2.80 mg/dL 2.70-4.50 Comprehensive Metabolic [id number] 07:27:52 Test Item Value Reference Range Comments [...] (test code=A/G Ratio) 1.4 ratio Comprehensive Metabolic [id number] 07:27:52 Test Item Value Reference Range Comments [...] is not provided, and the patient is -Haitian, multiply by 1.212. If sex is not [...] the National Kidney Foundation, http://nkdep.nih.gov Comprehensive Metabolic Hzdtu5186-72-98 07:27:52 Test Item Value Reference Range Comments [...] is not provided, and the patient is -Haitian, multiply by 1.212. If sex is not [...] is not provided, and the patient is -Haitian, multiply by 1.212. If sex is not [...] by the National Kidney Foundation, http://nkdep.nih.gov POC Erwtmrk3651-31-18 07:20:10 Test Item Value Reference Range Comments Glucose POC (test 225 mg/dL 70-115 If you consider your patient code=Glucose POC) critically ill, the Eliza-Accu Check Infrom II meter should not be used for Glucose determination. Draw a venous Glucose and send to the main Lab for analysis. Creatine Wvrjop2418-48-94 07:19:03 Test Item Value Reference Range Comments CK (test code=CK) 119 U/L 39-308 Troponin [id number] 07:19:03 Test Item Value Reference Range Comments [...] of chronic myocardial injury. Creatine Kinase MB hxmeihpy0720-40-68 07:17:15 Test Item Value Reference Range Comments CKMB (test code=CKMB) 3.8 ng/mL 0.0-4.9 Creatine Kinase MB eksorpvc6101-58-07 07:17:15 Test Item Value Reference Range Comments CKMB (test code=CKMB) 3.8 ng/mL 0.0-4.9 CKMB % (test code=CKMB %) 3.2 % 0.0-3.4 Complete Blood Count without Pdog1145-57-69 06:59:02 Test Item Value Reference Range Comments [...] x10 IPF (test code=IPF) 0 % POC Nbjivkn0123-76-43 06:12:19 Test Item Value Reference Range Comments Glucose POC (test 267 mg/dL 70-115 If you consider your patient code=Glucose POC) critically ill, the Eliza-Accu Check Infrom II meter should not be used for Glucose determination. Draw a venous Glucose and send to the main Lab for analysis. POC Rkshiim6709-03-81 05:00:38 Test Item Value Reference Range Comments Glucose POC (test 61 mg/dL 70-115 If you consider your patient code=Glucose POC) critically ill, the Eliza-Accu Check Infrom II meter should not be used for Glucose determination. Draw a venous Glucose and send to the main Lab for analysis. POC Rpdxmxb3445-29-52 04:01:42 Test Item Value Reference Range Comments Glucose POC (test 151 mg/dL 70-115 Notify RN or MDIf you consider code=Glucose POC) your patient critically ill, the Eliza-Accu Check Infrom II meter should not be used for Glucose determination. Draw a venous Glucose and send to the main Lab for analysis. POC [id number] 03:15:14 Test Item Value Reference Range Comments [...] 1.9 mmol/L 0.5-1.9 Acid, Plasma (Venous)) POC [id number] 02:08:55 Test Item Value Reference Range Comments [...] Site (test code=Draw Site) Brachial. R POC Syebedj0831-22-81 01:25:51 Test Item Value Reference Range Comments Glucose POC (test 366 mg/dL 70-115 If you consider your patient code=Glucose POC) critically ill, the Eliza-Accu Check Infrom II meter should not be used for Glucose determination. Draw a venous Glucose and send to the main Lab for analysis. [id number] 22:30:52 Test Item Value Reference Range Comments Acetone (Ketones) (test code=Acetone (Ketones)) Negative Negative Lot # (test code=Lot #) [id number] Expiration Dt (test code=Expiration Dt) [id number] Neg Control (test code=Neg Control) Negative Pos Control (test code=Pos Control) Positive Urinalysis with Culture, if [id number] 22:29:03 Test Item Value Reference Range Comments [...] by rule Micro Ind?) GL_SJM_UA_MICRO_IND Comprehensive Metabolic Zjvtx4030-99-54 22:13:44 Test Item Value Reference Range Comments [...] is not provided, and the patient is -Haitian, multiply by 1.212. If sex is not [...] is not provided, and the patient is -Haitian, multiply by 1.212. If sex is not [...] by the National Kidney Foundation, http://nkdep.nih.gov Alcohol Paywc1277-43-44 22:02:32 Test Item Value Reference Range Comments Ethanol Level (test 0.30 g/dL 0.00-0.01 Critical results called to RN, code=Ethanol Level) Cathy Hardy at 10/02/2018 22:01:54 CDT_ by RS_. Read back and verified? _yesIntoxicated 0.080 g/dL or more Ethanol Inst (test 302 code=Ethanol Inst) Magnesium [id number] 21:53:52 Test Item Value Reference Range Comments Magnesium Level (test code=Magnesium Level) 1.6 mg/dL 1.7-2.5 Phosphorus [id number] 21:53:52 Test Item Value Reference Range Comments Phosphorus Level (test code=Phosphorus Level) 4.40 mg/dL 2.70-4.50 Automated Ignnmrxbiavj6300-29-87 21:32:53 Test Item Value Reference Range Comments Neutro Auto (test code=Neutro Auto) 57.7 % 36.0-70.0 Lymph Auto (test code=Lymph Auto) 28.4 % 12.0-44.0 Mathews Auto (test code=Mathews Auto) 10.8 % 0.0-11.0 Eos, Auto (test code=Eos, Auto) 1.4 % 0.0-7.0 Basophil Auto (test code=Basophil Auto) 0.7 % 0.0-2.0 Neutro Absolute (test code=Neutro Absolute) 5.5 x10 1.6-7.4 Lymph Absolute (test code=Lymph Absolute) 2.69 x10 .50-4.60 Mathews Absolute (test code=Mathews Absolute) 1.02 x10 .00-1.20 Eos Absolute (test code=Eos Absolute) 0.13 x10 0.00-0.74 Baso Absolute (test code=Baso Absolute) 0.07 x10 0.00-0.21 IG [id number] 21:32:53 Test Item Value Reference Range Comments IG (test code=IG) 1.0 % 0.0-5.0 IG Abs (test code=IG Abs) 0 x10 Complete Blood Count with Jzearmmzbzkm2663-79-83 21:32:52 Test Item Value Reference Range Comments [...] x10 IPF (test code=IPF) 0 % POC [id number] 20:55:21 Test Item Value Reference Range Comments [...] (test code=Draw Site) Radial. R COMPREHENSIVE METABOLIC [id number] 22:26:00 Test Item Value Reference Range Comments [...] ALKALINE PHOSPHATASE (test 255 UNITS/L 38-126 code=ALKP) [id number] 22:26:00 Test Item Value Reference Range Comments ALCOHOL (test code=ALC) 282.0 MG/DL <10 CALLED TO TRUDY Ortiz & READBACK ON 08/25/18 AT 2226 Elizabeth Madrigal CBC W/O [id number] 22:00:00 Test Item Value Reference Range Comments [...] code=NRBC#) 0.00 K/mm3 0.0-0.1 - XR CHEST [id number] 21:09:00 Patient Name: PRIYANKA EVANGELISTA Unit No: [id number] EXAMS: CPT CODE: [id number] XR CHEST 1V 87107 Location of dictation: B2 Portable chest one [...] Barney Orig Print D/T: S: 08/25/2018 (2112) [facility] NAME: PRIYANKA EVANGELISTA [id number] [address] PHYS: VANIA [place] [address] : 1965 AGE: 53 SEX: M LOC: Z.ERS PHONE #: [phone] EXAM DATE: 08/25/2018 STATUS: PRE ER FAX #: [phone] RADIOLOGY NO: PAGE 1 Signed ReportGLUCOSE BEDSIDE [id number] 20:44:00 Test Item Value Reference Range Comments GLUCOSE BEDSIDE TESTING (test > 600 MG/DL 60-99 Notified Nurse~ code=GLUBED) XR Ribs w/ PA Chest [id number] 01:15:17Patient: PRIYANKA EVANGELISTA Date/Time07/20/2018 00: 30 CDTReason for ExamInjuryReportLOCATION: [id number]: 53-year-old male who presents with rib pain.COMMENT:A [...] cage. Final Dictated by: MD Jose M, Wicho DT/TM: 07/20/2018 1:13 amSigned by: MD Salguero Robert LSigned (Electronic Signature): 07/20/2018 1:15 amGLUCOSE BEDSIDE [id number] 16:12:00 Test Item Value Reference Range Comments GLUCOSE BEDSIDE TESTING (test code=GLUBED) 271 MG/DL 60-99 [id number] 14:56:00 Test Item Value Reference Range Comments ALCOHOL (test code=ALC) 296.0 MG/DL <10 CALLED TO FANTASMA& READBACK ON 06/10/18 AT 1456 BY Romina Valdes HEPATIC FUNCTION [id number] 14:54:00 Test Item Value Reference Range Comments TOTAL PROTEIN (test code=PROT) 8.9 G/DL 6.2-7.6 ALBUMIN (test code=ALB) 5.2 G/DL 3.5-5.0 BILIRUBIN TOTAL (test code=BILT) 0.7 MG/DL 0.2-1.3 BILIRUBIN DIRECT (test code=BILD) 0.0 MG/DL 0.0-0.3 SGOT/AST (test code=AST) 48 UNITS/L 17-59 SGPT/ALT (test code=ALT) 39 UNITS/L 21-72 ALKALINE PHOSPHATASE (test code=ALKP) 317 UNITS/L 38-126 DRUGS OF ABUSE SCREEN [id number] 14:16:00 Test Item Value Reference Range Comments [...] off Value: 25 ng/mL code=PHENCU) BASIC METABOLIC [id number] 14:05:00 Test Item Value Reference Range Comments [...] CALCIUM (test code=CA) 9.5 MG/DL 8.4-10.2 URINALYSIS [id number] 14:00:00 Test Item Value Reference Range Comments [...] NO CULTURE Culture Chk code=UACULT) Criteria URINALYSIS [id number] 13:59:00 Test Item Value Reference Range Comments [...] NEEDED? (test code=UACULT) Criteria Culture Chk PROTHROMBIN [id number] 13:41:00 Test Item Value Reference Range Comments [...] systemic embolism. 3.0 - 4.5 CBC W/AUTO [id number] 13:30:00 Test Item Value Reference Range Comments [...] (test code=NRBC#) 0.00 K/mm3 0.0-0.1 GLUCOSE BEDSIDE [id number] 13:01:00 Test Item Value Reference Range Comments GLUCOSE BEDSIDE TESTING (test code=GLUBED) 427 MG/DL 60-99 Notified Nurse~ CHEMISTRY 8 [id number] 13:00:00 Test Item Value Reference Range Comments [...] Range: > or=60 ml/min/1.73 m2 CHEMISTRY 8 [id number] 13:00:00 Test Item Value Reference Range Comments [...] Range: > or=60 ml/min/1.73 m2 BASIC METABOLIC [id number] 11:41:00 Test Item Value Reference Range Comments [...] (test code=CA) 8.2 MG/DL 8.4-10.2 CBC W/AUTO [id number] 11:37:00 Test Item Value Reference Range Comments [...] RBC # (test code=NRBC#) 0.00 K/mm3 0.0-0.1 [id number] 11:00:00 Test Item Value Reference Range Comments ALCOHOL (test code=ALC) 323.0 MG/DL <10 CALLED TO BERTHA.T& READBACK ON 06/08/18 AT 1100 BY Romina Valdes - XR HIP W/PEL UNI 2+V [id number] 09:57:00 Patient Name: PRIYANKA EVANGELISTA Unit No: [id number] EXAMS: CPT CODE: [id number] XR HIP W/PEL UNI 2+[place] [address] Right hip History: pain Comparison: May 31, [...] Carter Chatman, RT(R) Transcrpt Date/Tm/Trnsp: 06/08 (0957) t.ANGLER.[facility] OrigPrint D/T: S: 06/08/2018 (1001) [facility] NAME: PRIYANKA EVANGELISTA [address] [address] PHYS: [place] [address] : 1965 AGE : 53 SEX: M LOC: UNK PHONE #: [phone] EXAM DATE: 06/08/2018 STATUS: DEP ER FAX #: [phone] RADIOLOGY NO: PAGE 1 Signed Report- XR HIP W/PEL UNI 2+V [id number] 09:57:00 Patient Name: PRIYANKA EVANGELISTA Unit No: [id number] EXAMS: CPT CODE: [id number] XR HIP W/PEL UNI 2+[place] [address] Right hip History: pain Comparison: May 31, [...] (0957) t.SDR.PMT OrigPrint D/T: S: 02/2019 (1001) [facility] NAME: PRIYANKA EVANGELISTA [address] [address] PHYS : [place] [address] : 02/1966 AGE: 53 SEX: M LOC: Z.ERS PHONE #: [phone] EXAM DATE: 06/08/2018 STATUS: REG ER FAX #: [phone] RADIOLOGY NO: PAGE 1 Signed ReportGLUCOSE BEDSIDE [id number] 12:55:00 Test Item Value Reference Range Comments GLUCOSE BEDSIDE TESTING (test code=GLUBED) 160 MG/DL 60-99 GLUCOSE BEDSIDE [id number] 10:49:00 Test Item Value Reference Range Comments GLUCOSE BEDSIDE TESTING (test code=GLUBED) 186 MG/DL 60-99 BASIC METABOLIC [id number] 06:15:00 Test Item Value Reference Range Comments [...] (test code=CA) 8.8 MG/DL 8.4-10.2 CBC W/AUTO [id number] 05:54:00 Test Item Value Reference Range Comments [...] (test code=NRBC#) 0.00 K/mm3 0.0-0.1 GLUCOSE BEDSIDE [id number] 21:08:00 Test Item Value Reference Range Comments GLUCOSE BEDSIDE TESTING (test code=GLUBED) 198 MG/DL 60-99 GLUCOSE BEDSIDE [id number] 18:21:00 Test Item Value Reference Range Comments GLUCOSE BEDSIDE TESTING (test code=GLUBED) 217 MG/DL 60-99 [id number] 13:23:00 Test Item Value Reference Range Comments MAGNESIUM (test code=MAG) 1.6 MG/DL 1.6-2.3 GLUCOSE BEDSIDE [id number] 12:58:00 Test Item Value Reference Range Comments GLUCOSE BEDSIDE TESTING (test code=GLUBED) 334 MG/DL 60-99 GLUCOSE BEDSIDE [id number] 12:40:00 Test Item Value Reference Range Comments GLUCOSE BEDSIDE TESTING (test code=GLUBED) 193 MG/DL 60-99 GLUCOSE BEDSIDE [id number] 10:59:00 Test Item Value Reference Range Comments GLUCOSE BEDSIDE TESTING (test code=GLUBED) 173 MG/DL 60-99 BASIC METABOLIC [id number] 06:55:00 Test Item Value Reference Range Comments [...] (test code=CA) 8.8 MG/DL 8.4-10.2 GLUCOSE BEDSIDE [id number] 06:37:00 Test Item Value Reference Range Comments GLUCOSE BEDSIDE TESTING (test code=GLUBED) 220 MG/DL 60-99 CBC W/AUTO [id number] 06:17:00 Test Item Value Reference Range Comments [...] RBC # (test code=NRBC#) 0.00 K/mm3 0.0-0.1 [id number] 21:42:00 Test Item Value Reference Range Comments MAGNESIUM (test code=MAG) 1.9 MG/DL 1.6-2.3 GLUCOSE BEDSIDE [id number] 21:08:00 Test Item Value Reference Range Comments GLUCOSE BEDSIDE TESTING (test code=GLUBED) 101 MG/DL 60-99 GLUCOSE BEDSIDE [id number] 15:54:00 Test Item Value Reference Range Comments GLUCOSE BEDSIDE TESTING (test code=GLUBED) 261 MG/DL 60-99 Notified Nurse~ GLUCOSE BEDSIDE [id number] 11:18:00 Test Item Value Reference Range Comments GLUCOSE BEDSIDE TESTING (test code=GLUBED) 321 MG/DL 60-99 Notified Nurse~ BASIC METABOLIC [id number] 08:23:00 Test Item Value Reference Range Comments SODIUM (test code=NA) 121 MMOL/L 137-145 POTASSIUM (test code=K) 5.0 MMOL/L 3.5-5.1 CHLORIDE (test code=CL) 84 MMOL/L 98-107 CARBON DIOXIDE (test code=CO2) 27 MMOL/L 22-30 ANION GAP (test code=GAP) 15 MMOL/L 14-24 GLUCOSE (test code=GLU) 344 MG/DL 74-106 [facility] READBACK ON 06/01/18 AT 0822 BY Romina Valdes BLOOD UREA NITROGEN (test 14 MG/DL 9-20 code=BUN) GLOMERULAR FILTRATION RATE > 60 Reporting units: ml/min/1.73 (test code=GFR) m2 (Modified MDRD Formula)Reference Range: > or=60 ml/min/1.73 m2 CREATININE (test code=CREAT) 0.80 MG/DL 0.66-1.25 CALCIUM (test code=CA) 8.9 MG/DL 8.4-10.2 CBC W/AUTO [id number] 07:18:00 Test Item Value Reference Range Comments [...] (test code=NRBC#) 0.00 K/mm3 0.0-0.1 GLUCOSE BEDSIDE [id number] 06:36:00 Test Item Value Reference Range Comments GLUCOSE BEDSIDE TESTING (test code=GLUBED) 296 MG/DL 60-99 [id number] 22:45:00 Test Item Value Reference Range Comments MAGNESIUM (test code=MAG) 1.2 MG/DL 1.6-2.3 GLUCOSE BEDSIDE [id number] 19:56:00 Test Item Value Reference Range Comments GLUCOSE BEDSIDE TESTING (test code=GLUBED) 316 MG/DL 60-99 Notified Nurse~ - XR HIP W/PEL UNI 2+V [id number] 13:13:00 Patient Name: PRIYANKA EVANGELISTA Unit No: [id number] EXAMS: CPT CODE: [id number] XR HIP W/PEL UNI 2+[place] [address] Right hip History: RIGHT FEMUR FRACTURE Comparison: [...] t.SDR.PMT Orig Print D/T: S: 05/31/2018 (1316) [facility] NAME: PRIYANKA EVANGELISTA [address] [place] [address] PHYS: [place] [address] : 1965 AGE: 53 SEX: M LOC: [employer] PHONE #: [phone] EXAM DATE: 05/31/2018 STATUS: DIS IN FAX #: [phone] RADIOLOGY NO: PAGE 1 Signed Report- XR HIP W/ PEL UNI 2+V [id number] 13:13:00 Patient Name: PRIYANKA EVANGELISTA Unit No: [id number] EXAMS: CPT CODE: [id number] XR HIP W/PEL UNI 2+[place] [address] Right hip History: RIGHT FEMUR FRACTURE Comparison: [...] (1313) t.ANGLER.PMT Orig Print D/T: S: 05/31/2018 (5426) [facility] NAME: PRIYANKA EVANGELISTA [address] PHYS: [place] [address] : 1965 AGE: 53 SEX: M LOC: Z.534 A PHONE #: [phone] EXAM DATE: 05/31/2018 STATUS: ADM IN FAX #: [phone] RADIOLOGY NO: PAGE 1 Signed [id number] 12:56:00 Test Item Value Reference Range Comments HEMOGLOBIN (test code=HGB) 11.1 G/DL 12.4-16.7 Specimen comments: Patient in PACUComments to Pit Inspector: Patient in [id number] 12:56:00 Test Item Value Reference Range Comments HEMATOCRIT (test code=HCT) 34.1 % 35.9-49.5 Specimen comments: Patient in PACUComments to Pit Inspector: Patient in PACUGLUCOSE BEDSIDE [id number] 09:21:00 Test Item Value Reference Range Comments [...] HIGH.........130-159 mg/dL HIGH.........160-189 mg/dL VERY HIGH.........>/=190 mg/dL [id number] 07:50:00 Test Item Value Reference Range Comments MAGNESIUM (test code=MAG) 1.3 MG/DL 1.6-2.3 THYROID STIMULATING [id number] 07:50:00 Test Item Value Reference Range Comments [...] HIGH.........130-159 mg/dL HIGH.........160-189 mg/dL VERY HIGH.........>/=190 mg/dL [id number] 07:30:00 Test Item Value Reference Range Comments MAGNESIUM (test code=MAG) 1.3 MG/DL 1.6-2.3 THYROID STIMULATING [id number] 07:30:00 Test Item Value Reference Range Comments THYROID STIMULATING HORMONE (test code=TSH) MIU/L 0.465-4.68 LIPID PROFILE (CORONARY RISK)2018-05-31 07:19:00 Test Item Value Reference Range Comments TRIGLYCERIDES (test code=TRIG) 93 MG/DL TRIGLYCERIDES REFERENCE RANGE:Normal: <150 mg/dLBorderline High: 150-199 mg/dLHigh: 200-499 mg/dLVery High: >=500 mg/dL CHOLESTEROL (test code=CHOL) 191 MG/DL <200 HDL CHOLESTEROL (test 58 MG/DL 40-59 code=HDL) LIPOPROTEIN LDL (test MG/DL 0-99 code=LDL) [id number] 07:19:00 Test Item Value Reference Range Comments MAGNESIUM (test code=MAG) 1.3 MG/DL 1.6-2.3 THYROID STIMULATING [id number] 07:19:00 Test Item Value Reference Range Comments THYROID STIMULATING HORMONE (test code=TSH) MIU/L 0.465-4.68 GLYCOSYLATED HEMOGLOBIN [id number] 22:01:00 Test Item Value Reference Range Comments [...] (test 260 MG/DL 70-110 code=MBG) COMPREHENSIVE METABOLIC [id number] 20:45:00 Test Item Value Reference Range Comments SODIUM (test code=NA) 139 MMOL/L 137-145 POTASSIUM (test code=K) 4.9 MMOL/L 3.5-5.1 CHLORIDE (test code=CL) 101 MMOL/L 98-107 CARBON DIOXIDE (test code=CO2) 24 MMOL/L 22-30 ANION GAP (test code=GAP) 19 MMOL/L 14-24 GLUCOSE (test code=GLU) 332 MG/DL 74-106 CALLED TO [facility] PZT=842& READBACK ON 05/30/18 AT 5 BY Jeremías Oh BLOOD UREA NITROGEN (test [...] (test 192 UNITS/L 38-126 code=ALKP) GLUCOSE BEDSIDE [id number] 16:40:00 Test Item Value Reference Range Comments GLUCOSE BEDSIDE TESTING (test code=GLUBED) 314 MG/DL 60-99 URINALYSIS [id number] 15:07:00 Test Item Value Reference Range Comments [...] NEEDED? (test code=UACULT) Criteria Culture Chk URINALYSIS [id number] 15:07:00 Test Item Value Reference Range Comments [...] CULTURE Culture Chk code=UACULT) Criteria GLUCOSE BEDSIDE [id number] 12:16:00 Test Item Value Reference Range Comments GLUCOSE BEDSIDE TESTING (test code=GLUBED) 368 MG/DL 60-99 COMPREHENSIVE METABOLIC [id number] 11:34:00 Test Item Value Reference Range Comments [...] ALKALINE PHOSPHATASE (test 204 UNITS/L 38-126 code=ALKP) [id number] 11:34:00 Test Item Value Reference Range Comments ALCOHOL (test code=ALC) 348.0 MG/DL <[address] ALFONSO& READBACK ON 05/30/18 AT 1133 BY Elizabeth Machado PROTHROMBIN [id number] 11:11:00 Test Item Value Reference Range Comments [...] recurrent systemic embolism. 3.0 - 4.5 PTT [id number] 11:11:00 Test Item Value Reference Range Comments PTT ACTIVATED (test code=APTT) 25.5 SECONDS 22.0-33.0 CBC W/AUTO [id number] 10:57:00 Test Item Value Reference Range Comments [...] 0.0-0.1 - XR HIP W/PEL UNI 2+V [id number] 09:50:00 Patient Name: PRIYANKA EVANGELISTA Unit No: [id number] EXAMS: CPT CODE: [id number] XR HIP W/PEL UNI 2+[place] [address] Location code: R 16 Right hip 2 [...] (0950) AlbinaDRB1 Orig Print D/T: S: 05/30/2018 (7453) [facility] NAME: PRIYANKA EVANGELISTA [address] PHYS: [place] [address] : 1965 AGE: 53 SEX: M LOC: [employer] PHONE #: [phone] EXAM DATE: 05/30/2018 STATUS: DIS IN FAX #: [phone] RADIOLOGY NO: PAGE 1 Signed Report- XR HIP W/PEL UNI 2+V [id number] 09:50:00 Patient Name: PRIYANKA EVANGELISTA Unit No: [id number] EXAMS: CPT CODE: [id number] XR HIP W/PEL UNI 2+[place] [address] Location code: R 16 Right hip 2 [...] Naveed(R); Holger Goff (RT)(R) Transcrpt Date/Tm/Trnsp: 05/30/2018 (1850) AlbinaDRB1 Orig Print D/T: S: (0953) [facility] NAME: PRIYANKA EVANGELISTA [address] PHYS : [place] [address] : 02/1966 AGE: 53 SEX: M LOC: .[facility] PHONE #: [phone] EXAM DATE: STATUS: PRE ER FAX #: [phone] RADIOLOGY NO: PAGE 1 Signed Report- XR HIP W/PEL UNI 2+V [id number] 14:25:00 Patient Name: PRIYANKA EVANGELISTA Unit No: [id number] EXAMS: CPT CODE: [id number] XR HIP W/[place] UNI 2+[place] [address] Fluoroscopy Left hip nailing FINDINGS: An intramedullary nail with an intertrochanteric screw transfixes an intertrochanteric fracture. Hardware appears intact Fluoroscopy time utilized 77 seconds. Please refer to operative report for further details. Electronically Signed by Leonila Lane on 2016at 1425 Reported and signed by: Johnson Lane M.D. CC: Adrianne Tracy MD; Lisa Narvaez Technologist: Rohan Machado, RT(R); RT Ra(R) Transcrpt Date/Tm/Trnsp: 05/16/2016 (1425) tLEONORR.[email or web address] Orig Print D/T:S: 05/16/2016 (1428) [facility] NAME: PRIYANKA EVANGELISTA [address] PHYS: [place] [address] : 1965 AGE: 51 SEX: M LOC: [facility] PHONE #: [phone] EXAM DATE: 05/16/2016 STATUS: UNK FAX #: [phone] RADIOLOGY NO: PAGE 1 Signed Report- XR WRIST 3+V [id number] 19:15:00 Patient Name: PRIYANKA EVANGELISTA Unit No: [id number] EXAMS: CPT CODE: [id number] XR WRIST 3+[place] [address] Location n 13 Left Wrist, 3 views [...] Frederick Orig Print D/T: S: 01/31/2016 (1917) [facility] NAME: PRIYANKA EVANGELISTA [address] PHYS: [place] [address] : 1965 AGE: 50 SEX: M LOC: [employer] PHONE #: [phone] EXAM DATE: 2015 STATUS: [employer] FAX #: [phone] RADIOLOGY NO: PAGE 1 Signed Report
--- OUTSIDE RECORDS SUMMARY | 2019-06-11 02:45 | XMS REPORT ---
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 Medications Medication Code Code Instructions Start End Status Dosage System Date Date Duloxetine HCl [facility] 04785027480 60 MG Oral Active TAKE 1 CAPSULE TWICE DAILY ProAir HFA [facility] 75736532172 108 (90 Base) Active 2 puffs as MCG/ACT needed Inhalation every 6 hrs Folic Acid [facility] 25885182085 1 MG Orally Active 1 tablet Once a day One Touch NDC 0 Once twice a Active one Delica test day strips Gabapentin [facility] 01216351554 600 MG Oral Active TAKE 1 TABLET BY MOUTH THREE TIMES A DAY Fenofibrate [facility] 73674539448 160 MG Oral Active take 1 tablet Once a day by mouth every day with supper Lisinopril [facility] 61130538147 20 MG Oral Once Active take 1 tablet a day by mouth every day Levetiracetam [facility] 32545799799 1000 MG Orally Dec Active 1 tablet Once a day 2018 Atorvastatin [facility] 13457549681 20 MG Orally Dec Active 1 tablet Calcium Once a day 2018 Metformin HCl [facility] 46673813740 1000 MG Orally Active 1 tablet with a BID meal Trazodone HCl [facility] 01380875055 100 MG Orally Dec Active 1 tablet at Once a day , bedtime 2018 Pantoprazole [facility] 79093575405 40 MG Orally Active 1 tablet Sodium Once a day Tramadol HCl [facility] 21168407201 50 MG Orally Active 1 tablet as Once a day PRN needed SEVERE PAIN Vicodin [facility] 29712054893 5-300 MG Orally Dec Inactive 1 tablet as every 6 hrs 17, needed 2018 Humulin R [facility] 96778198001 100 UNIT/ML Dec Active inject 2-18 Injection twice 13, units per a day 2019 sliding scale OneTouch Verio [facility] 22114874092 - In Vitro 4 Dec Active 1 test strip times a day 2018 Tresiba [facility] 63601196664 200 UNIT/ML Dec Active inject 30 units FlexTouch Subcutaneous 17, Once a day 2018 Cymbalta [facility] 93580675880 60 MG Orally Active 1 capsule Twice a day Insulin Syringe [facility] 41272899000 30G X 1/2 Active 1 syringe subcutaneously six times a day One Touch NDC 0 Active not defined Delica Lancets Humulin N [facility] 96740433273 100 UNIT/ML Inactive INJECT 20 UNITS Subcutaneous SUBCUTANEOUSLY 2 TIMES A DAY WITH MEALS Results No Known Results Summary Purpose eClinicalWorks Submission
--- OUTSIDE RECORDS SUMMARY | 2019-06-11 02:45 | XMS REPORT ---
[...] Problem Depression with anxiety F41.8 Active Problem halfway (current) use of insulin Z79.4 Active Problem GERD without esophagitis K21.9 Active Medications Medication Code System Code Instructions Start Date End Date Status Dosage Gabapentin [facility] [place] 68840629586 600 MG Orally Active 1 tablet three times a day Results No Known Results Summary Purpose eClinicalWorks Submission
--- OUTSIDE RECORDS SUMMARY | 2019-06-11 02:45 | XMS REPORT ---
:1965 Author Organization eClinicalWorks Care Team Providers Name Role Phone Jose Alberto Roberto Provider Role Unavailable Allergies No Known Allergies [...] Problem Depression with anxiety F41.8 Active Problem correction (current) use of insulin Z79.4 Active Problem GERD without esophagitis K21.9 Active Assessment Type 2 diabetes mellitus with E11.42 Active diabetic polyneuropathy Assessment GERD without esophagitis K21.9 Active Problem HTN, goal below 130/80 I10 Active Assessment Depression with anxiety F41.8 Active Problem Allergic rhinitis, unspecified J30.9 Active seasonality, unspecified trigger Medications Medication Code Code Instructions Start End Status Dosage System Date Date Metformin HCl [facility] 65428793876 500 MG Oral Inactive TAKE 2 TABLETS BY MOUTH EVERY DAY Pantoprazole ND 02375182700 40 MG Orally Active 1 tablet Sodium Once a day Humulin R ND 63794608910 100 UNIT/ML Mar 11, Active inject Injection twice 2019 2-18 units a day per sliding scale One Touch NDC 0 Once twice a Inactive one Delica test day strips OneTouch Verio [facility] 74252151533 - In Vitro Mar 11, Active 1 test times a day 2018 strip Cymbalta ND 22396333735 60 MG Orally Active 1 capsule Twice a day Duloxetine HCl ND 00365894828 60 MG Oral Inactive TAKE 1 CAPSULE TWICE DAILY Results No Known Results Summary Purpose eClinicalWorks Submission
[2019-06-11 03:26] LABS: Absolute Lymphocytes (CBC) 0.6 K/uL (0.7-4.9); Basophils % 0.4 % (0-1.3); Lymphocytes % 5.5 % (15.3-44.8); MPV 9.4 fL (7.6-11.3); RBC Red Blood Cell Count 3.79 M/uL (4.33-5.43)
[2019-06-11] MEDS ORDERED: CEFTRIAXONE/SWI 1gm 1 GM/10 ML SYR ONE ×2 (03:33→08:45)
[2019-06-11 03:35] LABS: Protime INR 1.13
[2019-06-11 03:40] LABS: Urine Blood 1+ (NEG); Urine Glucose 2+ (NEG); Urine Protein 1+ (NEG); Urine Specific Gravity 1.015 (1.005-1.030)
[2019-06-11 03:46] LABS: Barbiturates NEGATIVE (NEGATIVE); Benzodiazepines NEGATIVE (NEGATIVE); Cocaine NEGATIVE (NEGATIVE); METHAMPHETAM NEGATIVE (NEGATIVE); Methadone NEGATIVE (NEGATIVE); Opiates NEGATIVE (NEGATIVE); Phencyclidine NEGATIVE (NEGATIVE); THC Cannibis NEGATIVE (NEGATIVE)
[2019-06-11 03:47] LABS: ALT/SGPT 19 U/L (12-78); AST/SGOT 13 U/L (15-37); Albumin 4.4 g/dL (3.4-5.0); Alkaline Phosphatase 211 U/L (45-117); Amylase Level 47 U/L (25-115); BUN Blood Urea Nitrogen 68 mg/dL (7-18); Bicarbonate 18 mmol/L (21-32); Bilirubin Direct 0.1 mg/dL (0-0.2); Bilirubin Total 0.6 mg/dL (0.2-1.0); Creatine Phosphokinase 303 U/L (39-308); Lipase 38 U/L (73-393); Protein, Total 9.5 g/dL (6.4-8.2); Sodium Level 124 mmol/L (136-145); Troponin (Emerg Dept Use Only) < 0.02 ng/mL (0.0-0.045)
[2019-06-11 03:55] LABS: Blood Morphology Comment NOT SEEN (NOT SEEN); Platelet Estimate ADEQ
[2019-06-11 03:58] LABS: Glucose Level 755 mg/dL (74-106); Magnesium 0.8 mg/dL (1.8-2.4)
[2019-06-11] MEDS ORDERED: INSULIN -REGULAR HUMAN 50 UNIT/0.5 ML ML ONE ×2 (04:13→06:21)
[2019-06-11] MEDS ORDERED: LORazepam 2 MG/ML VIAL ONE (04:16)
[2019-06-11 05:25] LABS: Urine Amorphous Sediment 1+ /HPF (NONE SEEN); Urine Bacteria 20-50 /HPF (NONE SEEN); Urine Culture Reflex Order NOT NEEDED; Urine Mucus 1+ /HPF (NONE SEEN)
[2019-06-11 05:26] LABS: Urine Sperm PRESENT (NONE SEEN)
--- NOTE | 2019-06-11 05:44 | ER ---
Nurse's Notes [facility] Name: Frandy Gomes Age: 54 yrs Sex: Male : 1965 Arrival Date: 06/11/2019 Time: 02:42 Bed 2 Private MD: Diagnosis: Diabetes mellitus due to underlying condition with ketoacidosis with coma;Acute kidney failure;Altered mental status, unspecified;Retention of urine;Hypomagnesemia;Cutaneous abscess of right upper limb Presentation: 06/10 02:46 Chief complaint: EMS states: Called for patient found on ground by landlord; unknown if lp1 patient fell, altered per EMS, yelling; Per EMS, patient hypertensive, tachycardic, wounds/sores noted to general body. Coronavirus screen: Unknown, patient unable to answer. Ebola Screen: Unable to complete the Ebola screening because:. Initial Sepsis Screen: Does the patient meet any 2 criteria? Altered Mental Status. HR > 90 bpm. Yes Does the patient have a suspected source of infection? Yes: Other: unknown. Risk Assessment: Do you want to hurt yourself or someone else? Unable to obtain. 02:46 Method Of Arrival: EMS: [facility] lp1 02:46 Acuity: VARINDER 2 lp1 02:56 Care prior to arrival: IV initiated. 20 GA, in the left forearm, Glucose check: 573. lp1 02:57 Note Patient soiled in urine and stool. lp1 07:20 Onset of symptoms is unknown. sv Historical: - Allergies: 02:56 No Known Allergies; lp1 - Home Meds: 02:56 levetiracetam 1,000 mg oral tab 1 tab daily [Active]; lisinopril 20 mg Oral tab 1 tab lp1 once daily [Active]; duloxetine 60 mg oral cpDR 1 cap twice a day [Active]; Folic Acid 1000 mg Oral once daily [Active]; trazodone 100 mg Oral tab nightly [Active]; fenofibrate 160 mg oral tab 1 tab once daily [Active]; gabapentin 600 mg oral tab 1 tab 3 times per day [Active]; atorvastatin 20 mg oral tab 1 tab once daily [Active]; metformin 1,000 mg Oral tab 1 tab 2 times per day [Active]; pantoprazole 40 mg oral TbEC 1 tab once daily [Active]; - PMHx: 02:56 COPD; Diabetes - NIDDM; GERD; Hyperlipidemia; Hypertension; Seizures; titanium marjorie in lp1 arm and hip; - PSHx: 02:56 Unable to obtain; lp1 - Immunization history:: Adult Immunizations unknown. - Social history:: Smoking status: unknown. Screenin:26 Nutritional screening: No deficits noted. Tuberculosis screening: No symptoms or risk ea factors identified. Fall Risk IV access (20 points). 07:20 Abuse screen: unknown. sv Assessment: 03:00 General: Appears unkempt, Behavior is restless. Pain: Unable to use pain scale. FLACC ea scale score is 0 out of 10. Neuro: Level of Consciousness is awake, confused, pt unable to follow commands. Oriented to none. Respiratory: Airway is patent Respiratory effort is even, unlabored, Respiratory pattern is regular, symmetrical. Derm: Skin has lesions on curtis upper and lower extremities, anterior and posterior trunk and perineal area Skin temperature is warm Pt has multiple skin lesions on whole body. 04:01 Reassessment: Lab at bedside for lab draw at 0310. ea 04:15 Reassessment: Pt resting in bed with eyes open, respirations even and unlabored, chest ea expansions even and symmetrical. Pt oriented to zero, he is unable to answer questions or follow commands. Pt responds to painful stimulus. 05:50 Reassessment: Pt resting in bed with eye closed, respirations even and unlabored, chest ea expansions even and symmetrical. No s/s of pain or discomfort noted at this time. 07:20 General: Appears in no apparent distress. uncomfortable, unkempt, malnourished, sv Behavior is drowsy, restless, uncooperative. Pain: Unable to use pain scale. Patient is disoriented. Does not appear to understand pain scale. Patient appears restless, FLACC scale score is 0 out of 10. Neuro: Level of Consciousness is lethargic, obtunded, Oriented to none. Cardiovascular: Heart tones S1 S2 present Patient's skin is warm and dry. Pulses are palpable in right radial artery and left radial artery Rhythm is sinus tachycardia. Respiratory: Airway is patent Respiratory effort is even, unlabored, Respiratory pattern is regular, symmetrical. GI: Abdomen is flat, Abd is soft and non tender X 4 quads. : [place] in place to gravity drainage. Derm: Skin has lesions on the entire body, some appear to be abscess, and some have been scabbed over. Skin is pale, Skin temperature is warm Decubitus located on bilateral elbow(s) sacrum is stage I is draining none noted. Musculoskeletal: Range of motion: intact in all extremities. 08:00 Reassessment: No changes from previously documented assessment. Informed Dr Talley of how the pt is presenting. He came to the bedside to assess the pt. 09:30 Reassessment: No changes from previously documented assessment. sv 10:30 Reassessment: No changes from previously documented assessment. sv 11:15 Reassessment: No changes from previously documented assessment. sv Vital Signs: 02:46 BP 186 / 121; Pulse 110; Resp 19; lp1 03:15 Temp 99.0(A); ea 03:25 Weight 63.5 kg; Height 6 ft. (182.88 cm); ea 04:00 BP 178 / 112; Pulse 117; Resp 24; Pulse Ox 100% on R/A; rv 04:30 BP 159 / 104; Pulse 137; Resp 16; Pulse Ox 100% on R/A; rv 05:00 BP 146 / 100; Pulse 129; Resp 18; Pulse Ox 100% ; rv 05:15 BP 154 / 101; Pulse 126; Resp 21; Temp 98; Pulse Ox 100% on R/A; rv 06:22 BP 151 / 108; Pulse 110; Resp 19; Pulse Ox 100% ; ea 07:00 BP 155 / 107; Pulse 118; Resp 18; Temp 98; Pulse Ox 100% ; ea 07:20 BP 147 / 106; Pulse 120; Resp 17; Pulse Ox 100% ; sv 08:00 BP 158 / 109; Pulse 123 MON; Resp 16; Pulse Ox 100% on R/A; sv 09:20 BP 138 / 100; Pulse 127; Resp 15; Pulse Ox 98% on R/A; sv 10:00 BP 158 / 99; Pulse 122; Resp 16; Pulse Ox 100% on R/A; sv 11:00 BP 161 / 101; Pulse 105; Resp 16; Temp 100.5(C); Pulse Ox 100% on R/A; sv 11:45 BP 156 / 99; Pulse 99; Resp 17; Temp 99.4(C); Pulse Ox 100% on R/A; sv 03:25 Body Mass Index 18.99 (63.50 kg, 182.88 cm) ea 08:00 Sinus tachycardia sv Javier Coma Score: 07:20 Eye Response: none(1). Verbal Response: incomprehensible(2). Motor Response: flexion sv (decorticate)(3). Total: 6. ED Course: 02:42 Patient arrived in ED. lp1 02:50 Triage completed. lp1 02:51 Arm band placed on. lp1 02:53 Kp Lockett MD is Attending Physician. tw4 02:55 Ruthie Butt, GERA is Primary Nurse. ea 02:57 Patient has correct armband on for positive identification. Bed in low position. Side lp1 rails up X2. Placed in gown. school lunch monitor on. Pulse ox on. NIBP on. 03:32 Chest Single View XRAY In Process Unspecified. EDMS 03:32 Urine Drug Screen Sent. ds4 03:32 Missed attempt(s): 18 gauge in right antecubital area. ea 03:35 Missed attempt(s): 20 gauge in right forearm. ea 03:58 Notified ED physician of a critical lab result(s). Glucose 755, Creatinine 5.72, lp1 Magnesium 0.8. 04:52 CT Head C Spine In Process Unspecified. EDMS 04:54 Abdomen In Process Unspecified. EDMS 05:14 No provider procedures requiring assistance completed. Patient admitted, IV remains in ea place. 05:34 AMMONIA Sent. ds4 05:34 Urine Culture Sent. ds4 05:42 Jocelin Noonan MD is Hospitalizing Provider. tw4 05:55 Inserted saline lock: 22 gauge in right forearm, using aseptic technique. Blood ds4 collected. 06:13 Lactate Sent. ds4 06:15 Glucose Sent. ds4 08:26 Attending Physician role handed off by Kp Lockett MD jessica 08:26 Robbie Talley MD is Attending Physician. jessica 09:30 Assist provider with lumbar puncture: Set up LP tray. Performed by Robbie Talley MD sv CSF is clear. Sample collected. Sample sent to lab. Puncture site dressed with band aid, Procedure was successful. Patient tolerated well. 09:[address] via stretcher. sv 10:04 Patient moved back from CT. sv 10:45 Assisted provider with central line placement. Set up central line tray. Triple lumen sv line placed in right femoral. Line placed by Robbie Talley MD Placement verified by blood return, Dressed with Tegaderm, Blood was collected. Patient tolerated well. Before procedure, did Practitioner(s) obtain informed consent? No. Patient \T\ family education about procedure, CLABSI prevention and S/S of infection? No. Time-out/Briefing performed prior to start of procedure? Yes. Was handwashing/sanitizing done immediately prior to procedure? Yes. Was patient positioned to in a way to prevent air embolism? Yes. Was procedure site sterilized? Yes, with chlorhexidine. Was the site allowed to dry? Yes. Was local anesthetic and/or sedation utilized? Yes. During the procedure, did the Practitioner(s) maintain a sterile field? Yes. Were unused ports clamped during insertion? Yes. Was a 2nd qualified MD obtained after 3 unsuccessful insertion attempts? Yes. Was blood aspirated from each lumen? Yes. After the procedure, did the Practitioner(s) clean the site and apply a sterile dressing? Yes. 11:07 Glucose Level Sent. sv 11:20 Primary Nurse role handed off by Ruthie Butt RN sv 11:20 Radha Henson, GERA is Primary Nurse. sv Administered Medications: 03:00 Drug: NS 0.9% (30 ml/kg) 30 ml/kg Route: IV; Rate: bolus; Site: left forearm; 07:20 Follow up: Response: No adverse reaction; IV Status: Completed infusion; IV Intake: sv 1905ml 03:35 Drug: Rocephin - (cefTRIAXone) 1 grams Route: IVPB; Infused Over: 30 mins; Site: left ea forearm; 04:05 Drug: Insulin Regular Human 10 units {Co-Signature: andrade (Sherri Nogueira RN).} Route: IVP; ea Site: left forearm; 06:23 Follow up: Response: No adverse reaction ea 04:15 Drug: Ativan 1 mg Route: IVP; Site: left forearm; 05:00 Follow up: Response: No adverse reaction ea 06:45 Drug: Insulin Drip - (Insulin Regular Human 100 units, NS 0.9% 100 ml) {Co-Signature: rosana zafar (Sherri Nogueira RN).} Route: IV; Rate: calculated rate; Site: left forearm; 08:55 Follow up: Rate change 5 calculated rate sv 11:43 Follow up: Response: No adverse reaction; IV Status: Infusion continued upon admission sv 09:30 Drug: Rocephin - (cefTRIAXone) 1 grams Route: IVPB; Infused Over: 30 mins; Site: right sv forearm; 09:32 Follow up: Response: No adverse reaction; IV Status: Completed infusion; IV Intake: sv 10ml ; given IVP per pharmacy 10:18 Drug: ProTONIX 80 mg Route: IVP; Site: right forearm; sv 11:00 Follow up: Response: No adverse reaction sv 10:18 Drug: ProTONIX 8 mg/hr Route: IV; Rate: 25 ml/hr; Site: right forearm; sv 11:42 Follow up: Response: No adverse reaction; IV Status: Infusion continued upon admission sv 11:45 Follow up: Response: No adverse reaction; IV Status: Infusion continued upon admission sv 10:54 Drug: Magnesium Sulfate 2 grams {Note: ordered by Dr Talley to give it over 20 mins.} sv Route: IVPB; Infused Over: 20 mins; Site: right femoral; 11:18 Follow up: Response: No adverse reaction; IV Status: Completed infusion; IV Intake: 50mlsv 11:04 Drug: Aspirin Suppository 300 mg Route: [place]; sv 11:42 Follow up: Response: No adverse reaction sv 11:04 Drug: Tylenol Suppository 650 mg Route: [place]; sv 11:42 Follow up: Response: No adverse reaction sv 11:04 Drug: NS 0.9% 1000 ml Route: IV; Rate: 1 bolus; Site: right femoral; sv 11:40 Follow up: Response: No adverse reaction; IV Status: Completed infusion; IV Intake: sv 1000ml 11:17 Drug: vancoMYCIN 20 mg/kg Route: IVPB; Site: right femoral; sv 11:43 Follow up: Response: No adverse reaction; IV Status: Infusion continued upon admission sv 11:43 Follow up: Response: No adverse reaction; IV Status: Infusion continued upon admission sv Intake: 07:20 IV: 1905ml; Total: 1905ml. sv 09:32 IV: 10ml; Total: 1915ml. sv 11:18 IV: 50ml; Total: 1965ml. sv 11:40 IV: 1000ml; Total: 2965ml. sv Output: 07:20 Urine: 2400ml (Ke[place]); Total: 2400ml. sv 11:51 Urine: 340ml (Keene); Total: 2740ml. sv Outcome: 05:44 Decision to Hospitalize by Provider. tw4 11:46 Admitted to ICU accompanied by nurse, accompanied by tech, via stretcher, room 3, on sv monitor, with chart, Report called to Nanci BOSS 11:46 Condition: stable 11:46 Instructed on the need for admit. 12:01 Patient left the ED. hb Signatures: Dispatcher [employer] EDMS Radha Henson RN RN Robbie Talley MD MD cha Pena, Laura, RN RN lp1 Lorenzo Vail ds4 Melisa Epps RN RN Ruthie Butt, RN Kp Corona ea, MD MD tw4 Blue Rasheed, RN Sherri Gross RN RN Sherri Nogueira RN Corrections: (The following items were deleted from the chart) 02:57 02:57 Note Patient soiled in urine and feces lp1 lp1 06:05 05:59 GLUCOSE+C.LAB.BRZ drawn and sent. 4 EDMS 11:32 08:55 Rate change 5 calculated rate sv sv 11:48 11:00 BP 161 / 101; Pulse 105bpm; Resp 16bpm; Pulse Ox 100% RA; sv sv 11:48 11:45 BP 156 / 99; Pulse 99bpm; Resp 17bpm; Pulse Ox 100% RA; sv sv 16:21 11:42 Response: No adverse reaction; IV Status: Infusion continued upon admission sv sv 16:22 11:43 Response: No adverse reaction; IV Status: Infusion continued upon admission sv sv
--- NOTE | 2019-06-11 05:45 | EDPHYS ---
Physician Documentation [facility] Name: Frandy Gomes Age: 54 yrs Sex: Male : 1965 Arrival Date: 06/11/2019 Time: 02:42 Bed 2 Private MD: ED Physician Robbie Talley HPI: 06/10 06:47 This 54 yrs old Male presents to ER via EMS with complaints of Altered Mental tw4 Status. 06:47 The patient presents with decreased mental status, decreased responsiveness. Onset: The tw4 symptoms/episode began/occurred today. Possible causes: unknown. Associated signs and symptoms: The patient has no apparent associated signs or symptoms. Current symptoms: In the emergency department the patient's symptoms are unchanged from the initial presentation. Patient's baseline: Neuro: alert and fully oriented, Motor: no deficits, Ambulation: walks without assistance. Unable to obtain HPI due to obtunded state. The patient has not experienced similar symptoms in the past. pt last seen by neighbors today at 10am... pt was checked on this evening and found unresponsive on floor of apartment . Historical: - Allergies: 02:56 No Known Allergies; lp1 - Home Meds: 02:56 levetiracetam 1,000 mg oral tab 1 tab daily [Active]; lisinopril 20 mg Oral tab 1 tab lp1 once daily [Active]; duloxetine 60 mg oral cpDR 1 cap twice a day [Active]; Folic Acid 1000 mg Oral once daily [Active]; trazodone 100 mg Oral tab nightly [Active]; fenofibrate 160 mg oral tab 1 tab once daily [Active]; gabapentin 600 mg oral tab 1 tab 3 times per day [Active]; atorvastatin 20 mg oral tab 1 tab once daily [Active]; metformin 1,000 mg Oral tab 1 tab 2 times per day [Active]; pantoprazole 40 mg oral TbEC 1 tab once daily [Active]; - PMHx: 02:56 COPD; Diabetes - NIDDM; GERD; Hyperlipidemia; Hypertension; Seizures; titanium marjorie in lp1 arm and hip; - PSHx: 02:56 Unable to obtain; lp1 - Immunization history:: Adult Immunizations unknown. - Social history:: Smoking status: unknown. ROS: 06:47 Unable to obtain ROS due to comatose state, obtunded state. tw4 Exam: 06:47 Head/Face: Normocephalic, atraumatic. Eyes: Pupils equal round and reactive to light, tw4 extra-ocular motions intact. Lids and lashes normal. Conjunctiva and sclera are non-icteric and not injected. Cornea within normal limits. Periorbital areas with no swelling, redness, or edema. Chest/axilla: Normal chest wall appearance and motion. Nontender with no deformity. No lesions are appreciated. 06:47 Constitutional: The patient appears lethargic, listless, unkempt. 06:47 Cardiovascular: Rate: tachycardic, actual rate is 111 bpm, Rhythm: regular, Pulses: no pulse deficits are appreciated. Vital Signs: 02:46 BP 186 / 121; Pulse 110; Resp 19; lp1 03:15 Temp 99.0(A); ea 03:25 Weight 63.5 kg; Height 6 ft. (182.88 cm); ea 04:00 BP 178 / 112; Pulse 117; Resp 24; Pulse Ox 100% on R/A; rv 04:30 BP 159 / 104; Pulse 137; Resp 16; Pulse Ox 100% on R/A; rv 05:00 BP 146 / 100; Pulse 129; Resp 18; Pulse Ox 100% ; rv 05:15 BP 154 / 101; Pulse 126; Resp 21; Temp 98; Pulse Ox 100% on R/A; rv 06:22 BP 151 / 108; Pulse 110; Resp 19; Pulse Ox 100% ; ea 07:00 BP 155 / 107; Pulse 118; Resp 18; Temp 98; Pulse Ox 100% ; ea 07:20 BP 147 / 106; Pulse 120; Resp 17; Pulse Ox 100% ; sv 08:00 BP 158 / 109; Pulse 123 MON; Resp 16; Pulse Ox 100% on R/A; sv 09:20 BP 138 / 100; Pulse 127; Resp 15; Pulse Ox 98% on R/A; sv 10:00 BP 158 / 99; Pulse 122; Resp 16; Pulse Ox 100% on R/A; sv 11:00 BP 161 / 101; Pulse 105; Resp 16; Temp 100.5(C); Pulse Ox 100% on R/A; sv 11:45 BP 156 / 99; Pulse 99; Resp 17; Temp 99.4(C); Pulse Ox 100% on R/A; sv 03:25 Body Mass Index 18.99 (63.50 kg, 182.88 cm) ea 08:00 Sinus tachycardia sv Javier Coma Score: 07:20 Eye Response: none(1). Verbal Response: incomprehensible(2). Motor Response: flexion sv (decorticate)(3). Total: 6. Procedures: 09:23 Lumbar Puncture: Patient placed in left lateral decubitus position. Prepped with jessica Betadine. Draped using sterile technique. Collected 20 ml's of Puncture site dressed with band aid, Patient tolerated well. Central Line: the site was prepped with Betadine, a triple lumen catheter was inserted, in the right in 1 attempts. MDM: 02:58 Patient medically screened. tw4 06:55 Differential Diagnosis: CVA, electrolyte abnormality, alcohol intoxication, tw4 intracranial bleed, meningitis, overdose, pneumonia, seizure, sepsis, volume depletion. Data reviewed: vital signs, nurses notes. Data reviewed: EMS record, lab test result(s), CBC, electrolytes, hepatic panel, EKG, radiologic studies, CT scan, plain films. 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 Test interpretation: by ED physician or midlevel provider: ECG, plain radiologic studies. Physician consultation: Jocelin Noonan MD regarding admission, to the ICU, patient's condition, and will see patient in ED, would like consultation with Nephrology discussed with Dr Valdez at [phone]. ED course: Pt found to be in DKA and acute renal faulire. Will place on insulin drip at 0.1unit/kg and admit ot the ICU. Discussed with Dr Noonan who agrees with treatment plan and admission . 06/10 02:55 Order name: UDS 06/10 02:55 Order name: Basic Metabolic Panel 06/10 02:55 Order name: CBC with Diff 06/10 02:55 Order name: Ckmb 06/10 02:55 Order name: CPK 06/10 02:55 Order name: Hepatic Function 06/10 02:55 Order name: Lipase 06/10 02:55 Order name: Magnesium 06/10 02:55 Order name: Protime (+inr) 06/10 02:55 Order name: Ptt, Activated 06/10 02:55 Order name: Troponin (emerg Dept Use Only) 06/10 02:55 Order name: Ketone, Serum; Complete Time: 05:44 06/10 05:45 Interpretation: Abnormal: ACET SMALL. 06/10 02:55 Order name: Lactate; Complete Time: 05:44 06/10 02:55 Order name: Blood Culture Adult (2) 06/10 02:55 Order name: Procalcitonin; Complete Time: 05:44 06/10 02:56 Order name: Urine Drug Screen; Complete Time: 05:44 EDMS 06/10 02:56 Order name: Basic Metabolic Panel; Complete Time: 05:44 EDMS 06/10 05:45 Interpretation: NA 124; CL 88; CO2 18; GLUC 755; BUN 68; CRE 5.72. 06/10 02:56 Order name: CBC with Automated Diff; Complete Time: 05:44 EDMS 06/10 05:45 Interpretation: Normal except: WBC 11.2; RBC 3.79; HGB 10.7; HCT 33.0; NEUT A 10.0; tw4 LYMA 0.6; LYM% 5.5; RAÚL% 89.7. 06/10 02:56 Order name: CKMB Creatine Kinase MB; Complete Time: 05:44 EDMS 06/10 05:46 Interpretation: Normal except: CKMB 6.0. 06/10 02:56 Order name: Creatine Phosphokinase; Complete Time: 05:44 EDMS 06/10 02:56 Order name: Liver (Hepatic) Function; Complete Time: 05:44 EDMS 06/10 05:46 Interpretation: Normal except: AST 13; ALK 211; TP 9.5; GLOB 5.1; A/G 0.9. 06/10 02:56 Order name: Lipase; Complete Time: 05:44 EDMS 06/10 05:46 Interpretation: Normal except: LIP 38. 06/10 02:56 Order name: Magnesium; Complete Time: 05:44 EDMS 06/10 02:56 Order name: Protime (+INR); Complete Time: 05:44 EDMS 06/10 02:56 Order name: PTT, Activated Partial Thromb; Complete Time: 05:44 EDMS 06/10 02:56 Order name: Troponin (Emerg Dept Use Only); Complete Time: 05:44 EDMS 06/10 02:59 Order name: Urine Microscopic Only; Complete Time: 05:44 tw4 06/10 03:07 Order name: Alcohol Level; Complete Time: 05:44 tw4 06/10 03:26 Order name: Amylase Level; Complete Time: 05:44 EDMS 06/10 03:32 Order name: Urine Culture ds4 06/10 03:34 Order name: Urine Dipstick--Ancillary (enter results); Complete Time: 05:44 ds4 06/10 03:57 Order name: Manual Differential; Complete Time: 05:44 EDMS 06/10 05:47 Interpretation: Normal except: SEGS 90; LYM 6. tw4 06/10 04:12 Order name: AMMONIA; Complete Time: 08:31 ea 06/10 05:28 Order name: Glucose, Ancillary Testing; Complete Time: 05:44 EDMS 06/10 05:34 Order name: Glucose; Complete Time: 08:31 ds4 06/10 05:59 Order name: Lactate; Complete Time: 08:31 ds4 06/10 06:49 Order name: ABG Arterial Blood Gas; Complete Time: 08:31 EDMS 06/10 07:30 Order name: Acetone Level EDMS 06/10 07:30 Order name: CBC with Automated Diff EDMS 06/10 07:30 Order name: Comprehensive Metabolic Panel EDMS 06/10 07:30 Order name: Lactate EDMS 06/10 07:30 Order name: Basic Metabolic Panel EDMS 06/10 07:30 Order name: Basic Metabolic Panel EDMS 06/10 07:30 Order name: Basic Metabolic Panel EDMS 06/10 07:30 Order name: Basic Metabolic Panel EDMS 06/10 07:30 Order name: Basic Metabolic Panel EDMS 06/10 07:30 Order name: Basic Metabolic Panel EDMS 06/10 07:35 Order name: Lipid Profile EDMS 06/10 07:35 Order name: Lipid Profile EDMS 06/10 07:44 Order name: Magnesium EDMS 06/10 07:44 Order name: Magnesium; Complete Time: 09:18 EDMS 06/10 07:44 Order name: Magnesium EDMS 06/10 07:44 Order name: Magnesium EDMS 06/10 07:44 Order name: Magnesium EDMS 06/10 08:11 Order name: Glucose, Ancillary Testing; Complete Time: 08:31 EDME 06/10 08:22 Order name: Glucose Level [facility] 06/10 08:29 Order name: ABG [facility] 06/10 08:31 Order name: CBC with Diff [facility] 06/10 08:31 Order name: Comprehensive Metabolic Panel [facility] 06/10 08:31 Order name: Urine Osmolality [facility] 06/10 02:55 Order name: CT Head C Spine tw 06/10 02:55 Order name: EKG; Complete Time: 02:57 tw 06/10 02:55 Order name: Cardiac monitoring; Complete Time: 03:33 tw4 06/10 02:55 Order name: EKG - Nurse/Tech; Complete Time: 03:32 tw 06/10 02:55 Order name: IV Saline Lock; Complete Time: 03:32 tw4 06/10 02:55 Order name: Labs collected and sent; Complete Time: 03:32 tw06/10 02:55 Order name: NPO; Complete Time: 03:32 tw 06/10 02:55 Order name: O2 Per Protocol; Complete Time: 03:32 tw4 06/10 02:55 Order name: O2 Sat Monitoring; Complete Time: 03:32 tw4 06/10 02:55 Order name: Urine Dipstick-Ancillary (obtain specimen); Complete Time: 03:32 tw4 06/10 02:59 Order name: Chest Single View XRAY; Complete Time: 10:58 tw 06/10 02:59 Order name: Accucheck; Complete Time: 06:00 tw4 06/10 02:59 Order name: IV Saline Lock - Large Bore; Complete Time: 03:59 tw 06/10 04:02 Order name: Abdomen [facility] 06/10 07:35 Order name: CONS Pharmacy Consult [facility] 06/10 07:35 Order name: CONS Physician Consult [facility] 06/10 07:35 Order name: NPO [facility] 06/10 08:23 Order name: Labs - recollect needed: green top recollect; Complete Time: 08:39 eb 06/10 08:31 Order name: Urine Sodium Random [facility] 06/10 08:31 Order name: Osmolality, Serum [facility] 06/10 08:31 Order name: Spinal Fluid Profile [facility] 06/10 08:31 Order name: Lumbar Puncture Setup; Complete Time: 11:52 [facility] 06/10 09:04 Order name: Glucose, Ancillary Testing; Complete Time: 09:18 EDMS 06/10 09:10 Order name: UR SODIUM; Complete Time: 09:18 EDMS 06/10 09:10 Order name: CBC with Automated Diff; Complete Time: 09:18 EDMS 06/10 09:13 Order name: Comprehensive Metabolic Panel; Complete Time: 09:18 EDMS 06/10 09:20 Order name: Central Line Kit; Complete Time: 11:52 [facility] 06/10 09:20 Order name: CT Head Brain wo Cont [facility] 06/10 09:20 Order name: Osmolality, Urine; Complete Time: 10:58 EDMS 06/10 09:23 Order name: Lactate Sepsis 2 HR Follow-up; Complete Time: 10:58 EDMS 06/10 09:28 Order name: ABG Arterial Blood Gas; Complete Time: 10:58 EDMS 06/10 09:46 Order name: CSF Culture EDMS 06/10 09:46 Order name: CSF Bacterial Antigens (Tube 1 EDME 06/10 09:47 Order name: CSF Glucose; Complete Time: 10:58 EDMS 06/10 09:59 Order name: Body Fluid Cell Count; Complete Time: 10:58 EDMS 06/10 10:02 Order name: CT; Complete Time: 10:58 EDMS 06/10 10:35 Order name: Glucose, Ancillary Testing; Complete Time: 10:58 EDMS 06/10 11:43 Order name: Osmolality, Serum EDMS 06/10 12:00 Order name: Glucose, Ancillary Testing EDMS EC:47 Rate is 111 beats/min. Rhythm is regular. QRS Alkol is Normal. VT interval is normal. tw4 QRS interval is normal. QT interval is normal. No Q waves. T waves are Normal. T waves are Peaked in leads V2, V3, V4. No ST changes noted. Clinical impression: Sinus tachycardia. Interpreted by me. Reviewed by me. Administered Medications: 03:00 Drug: NS 0.9% (30 ml/kg) 30 ml/kg Route: IV; Rate: bolus; Site: left forearm; ea 07:20 Follow up: Response: No adverse reaction; IV Status: Completed infusion; IV Intake: sv 1905ml 03:35 Drug: Rocephin - (cefTRIAXone) 1 grams Route: IVPB; Infused Over: 30 mins; Site: left ea forearm; 04:05 Drug: Insulin Regular Human 10 units {Co-Signature: andrade (Sherri Nogueira RN).} Route: IVP; ea Site: left forearm; 06:23 Follow up: Response: No adverse reaction ea 04:15 Drug: Ativan 1 mg Route: IVP; Site: left forearm; 05:00 Follow up: Response: No adverse reaction ea 06:45 Drug: Insulin Drip - (Insulin Regular Human 100 units, NS 0.9% 100 ml) {Co-Signature: rosana (Sherri Nogueira RN).} Route: IV; Rate: calculated rate; Site: left forearm; 08:55 Follow up: Rate change 5 calculated rate sv 11:43 Follow up: Response: No adverse reaction; IV Status: Infusion continued upon admission sv 09:30 Drug: Rocephin - (cefTRIAXone) 1 grams Route: IVPB; Infused Over: 30 mins; Site: right sv forearm; 09:32 Follow up: Response: No adverse reaction; IV Status: Completed infusion; IV Intake: sv 10ml ; given IVP per pharmacy 10:18 Drug: ProTONIX 80 mg Route: IVP; Site: right forearm; sv 11:00 Follow up: Response: No adverse reaction sv 10:18 Drug: ProTONIX 8 mg/hr Route: IV; Rate: 25 ml/hr; Site: right forearm; sv 11:42 Follow up: Response: No adverse reaction; IV Status: Infusion continued upon admission sv 11:45 Follow up: Response: No adverse reaction; IV Status: Infusion continued upon admission sv 10:54 Drug: Magnesium Sulfate 2 grams {Note: ordered by Dr Talley to give it over 20 mins.} sv Route: IVPB; Infused Over: 20 mins; Site: right femoral; 11:18 Follow up: Response: No adverse reaction; IV Status: Completed infusion; IV Intake: 50mlsv 11:04 Drug: Aspirin Suppository 300 mg Route: VT; sv 11:42 Follow up: Response: No adverse reaction sv 11:04 Drug: Tylenol Suppository 650 mg Route: VT; sv 11:42 Follow up: Response: No adverse reaction sv 11:04 Drug: NS 0.9% 1000 ml Route: IV; Rate: 1 bolus; Site: right femoral; sv 11:40 Follow up: Response: No adverse reaction; IV Status: Completed infusion; IV Intake: sv 1000ml 11:17 Drug: vancoMYCIN 20 mg/kg Route: IVPB; Site: right femoral; sv 11:43 Follow up: Response: No adverse reaction; IV Status: Infusion continued upon admission sv 11:43 Follow up: Response: No adverse reaction; IV Status: Infusion continued upon admission sv Disposition: 06:58 Critical Care:. tw4 06/11 06:52 Chart complete. tw4 Disposition: 06/11/19 05:44 Hospitalization ordered by Jocelin Noonan for Inpatient Admission. Preliminary diagnosis are Diabetes mellitus due to underlying condition with ketoacidosis with coma, Acute kidney failure, Altered mental status, unspecified, Retention of urine, Hypomagnesemia, Cutaneous abscess of right upper limb. - Bed requested for Intensive Care Unit. - Status is Inpatient Admission. hb - Condition is Serious. - Problem is new. - Symptoms are unchanged. Critical care time excluding procedures: 06/10 06:58 Critical care time: Bedside Care: 35 minutes, Consultation: 10 minutes. Total time: 45 tw4 minutes Signatures: Dispatcher [employer] Radha Menendez RN Mayuri Sutton, RN Robbie Marcus MD MD cha Pena, Laura, RN RN lp1 Melisa Epps, RN Ruthie Reid, RN Kp Corona ea, MD MD tw4 Angeline Brothers Amy, RN GERA Sherri Nogueira RN Corrections: (The following items were deleted from the chart) 03:26 03:01 AMYLASE, SERUM+C.LAB.BRZ ordered. EDMS EDMS 04:02 02:57 Abdomen Pelvis W Con+CT.RAD.BRZ ordered. EDMS EDMS 04:51 03:50 Head Brain Wo Cont+CT.RAD.BRZ ordered. EDMS EDMS 06:05 05:35 GLUCOSE+C.LAB.BRZ ordered. EDMS EDMS 06:24 05:44 Hospitalization Ordered by Jocelin Noonan MD for Inpatient Admission. Preliminary eb diagnosis is Diabetes mellitus due to underlying condition with ketoacidosis with coma; Acute kidney failure; Altered mental status, unspecified. Bed requested for Intensive Care Unit. Status is Inpatient Admission. Condition is Serious. Problem is new. Symptoms are unchanged. tw4 08:01 06:24 06/11/2019 05:44 Hospitalization Ordered by Jocelin Noonan MD for Inpatient dw Admission. Preliminary diagnosis is Diabetes mellitus due to underlying condition with ketoacidosis with coma; Acute kidney failure; Altered mental status, unspecified. Bed requested for Intensive Care Unit. Status is Inpatient Admission. Condition is Serious. Problem is new. Symptoms are unchanged. eb 08:21 08:07 GLUCOSE+C.LAB.BRZ ordered. EDMS EDMS 09:22 08:01 06/11/2019 05:44 Hospitalization Ordered by Jocelin Noonan MD for Inpatient jessica Admission. Preliminary diagnosis is Diabetes mellitus due to underlying condition with ketoacidosis with coma; Acute kidney failure; Altered mental status, unspecified. Bed requested for Intensive Care Unit. Status is Inpatient Admission. Condition is Serious. Problem is new. Symptoms are unchanged. dw 12:01 09:22 06/11/2019 05:44 Hospitalization Ordered by Jocelin Noonan MD for Inpatient hb Admission. Preliminary diagnosis is Diabetes mellitus due to underlying condition with ketoacidosis with coma; Acute kidney failure; Altered mental status, unspecified; Retention of urine; Hypomagnesemia; Cutaneous abscess of right upper limb. Bed requested for Intensive Care Unit. Status is Inpatient Admission. Condition is Serious. Problem is new. Symptoms are unchanged. jessica
[2019-06-11 06:50] LABS: Arterial Blood Carboxyhemoglob 1.2 % (0-1.5); Blood O2 Saturation 96.2 % (92-98.5)
[2019-06-11] MEDS ORDERED: GLUCAGON 1 MG/VIAL IM PRN (07:29)
[2019-06-11] MEDS ORDERED: D50W 25 GM/50 ML SYRINGE/VIAL IV PRN (07:29)
[2019-06-11] MEDS ORDERED: INSULIN -REGULAR HUMAN 100 UNIT in NA CHLORIDE 0.9% 100 ML IV SCH (07:30)
--- NOTE | 2019-06-11 07:39 | P.HP ---
Certification for Inpatient Patient admitted to: Inpatient With expected LOS: >2 Midnights Patient will require the following post-hospital care: None Practitioner: I am a practitioner with admitting privileges, knowledge of patient current condition, hospital course, and medical plan of care. Services: Services provided to patient in accordance with Admission requirements found in Title 42 Section 412.3 of the Code of Federal Regulations Patient History Date of Service: 06/11/19 Reason for admission: Patient was found unresponsive by his neighbors History of Present Illness: Patient is a 54-year-old gentleman who was found unresponsive by his neighbors. Patient was brought into the emergency room. Patient was found to have acute renal failure and significantly elevated blood sugar levels. Patient was started on IV hydration and an insulin drip. Patient was found have obstructive uropathy. There was no nephrolithiasis. Notified Nephrology and [place] catheter placement and 1000cc of urine output. At this time, patient will be admitted to the hospital for further evaluation. We may need repeat renal ultrasound to evaluate hydronephrosis. Patient will be admitted to ICU for evaluation. Continue neuro checks q.2 hr. Allergies No Known Allergies Allergy (Verified 12/20/18 19:16) Home Medications: Albuterol Sulfate [Proair Hfa] 2 puff IH Q4HP PRN 12/20/18 Aspirin Chewable [Aspirin Chewable*] 1 tab PO DAILY 12/20/18 Duloxetine HCl 1 tab PO BEDTIME 12/20/18 Duloxetine HCl 1 tab PO DAILY 12/20/18 Ergocalciferol (Vitamin D2) [Vitamin D2] 50,000 unit PO SEECOM 12/20/18 Fenofibrate 1 tab PO DAILY 12/20/18 Ferrous Sulfate [Ferrous Sulfate*] 1 tab PO BID 12/20/18 Folic Acid 1 tab PO DAILY 12/20/18 Gabapentin 1 tab PO TID 12/20/18 Loratadine [Claritin*] 10 mg PO DAILY 12/20/18 Metformin ER [Glucophage ER*] 1,000 mg PO BIDWM 12/20/18 Pantoprazole Sodium 1 tab PO DAILY 12/20/18 Piroxicam 20 mg PO DAILY 12/20/18 Trazodone [Desyrel*] 1 tab PO BEDTIME PRN 12/20/18 levETIRAcetam [Keppra*] 1,000 mg PO DAILY 12/20/18 lisinopriL [Lisinopril] 1 tab PO DAILY 12/20/18 Blood Sugar Diagnostic [Onetouch Verio] 1 each MC DAILY #100 strip 12/29/18 Doxycycline Hyclate 100 mg PO BID #28 tablet. 12/29/18 Doxycycline Hyclate 200 mg PO BID 14 Days #56 capsule 12/29/18 Insulin NPH Human [Novolin N (Humulin N)*] 35 units SQ TIDWM #500 ml 12/29/18 Lancets [Onetouch Lancets] 1 each MC DAILY #100 each 12/29/18 Mupirocin Oint [Bactroban 2% Ointment*] 1 appl TOP BID #1 tube 12/29/18 Tramadol HCl [Ultram] 50 mg PO Q6HP PRN #20 tablet 12/29/18 clindamycin HCL [Clindamycin HCl] 300 mg PO Q6H #56 capsule 12/29/18 - Past Medical/Surgical History Diabetic: Yes -: DM-IDDM -: Seizure -: HTN -: HLD -: COPD -: GERD -: L humerous sx with Titanium marjorie placement -: L hip and R hip sx - Family History Father Medical History: Heart disease, Other (see notes) Notes: from [place] - Social History Alcohol use: Yes CD- Drugs: No Caffeine use: Yes Review of Systems 10-point ROS is otherwise unremarkable Physical Examination - Vital Signs Temperature: 99 F Blood Pressure: 140/70 Pulse: 80 Respirations: 18 Pulse Ox (%): 99 - Physical Exam General: Unresponsive (Difficult to arouse) HEENT: Atraumatic, PERRLA, Mucous membr. moist/pink, EOMI, Sclerae nonicteric Neck: Supple, 2+ carotid pulse no bruit, No LAD, Without JVD or thyroid abnormality Respiratory: Clear to auscultation bilaterally, Normal air movement Cardiovascular: Regular rate/rhythm, Normal S1 S2, No murmurs Gastrointestinal: Normal bowel sounds, Soft and benign, Non-distended, No tenderness Musculoskeletal: No clubbing, No swelling, No tenderness Integumentary: No rashes Neurological: Sensation intact, Cranial nerves 3-12 intact (Cranial nerves are grossly intact), Abnormal gait, Abnormal speech, Abnormal strength, Abnormal affect Lymphatics: No axilla or inguinal lymphadenopathy - Studies Laboratory Data (last 24 hrs) 06/11/19 05:24: Glucose 561 H* 06/11/19 03:04: Amylase Cancelled 06/11/19 03:04: PT 13.3 H, INR 1.13, APTT 28.7 06/11/19 03:04: WBC 11.2 H, Hgb 10.7 L, Hct 33.0 L, Plt Count 226 06/11/19 03:04: Sodium 124 L, Potassium 5.0, BUN 68 H, Creatinine 5.72 H*, Glucose 755 H*, Magnesium 0.8 L* D, Total Bilirubin 0.6, AST 13 L, ALT 19, Alkaline Phosphatase 211 H, Amylase 47, Lipase 38 L Microbiology Data (last 24 hrs): 06/11/19 03:04 Blood - Blood Anaerobic Blood Culture - Final Assessment & Plan - Problems (Diagnosis) (1) Acute kidney injury Current Visit: Yes Status: Acute (2) DKA (diabetic ketoacidoses) Current Visit: Yes Status: Acute (3) Obstructive uropathy Current Visit: Yes Status: Acute (4) Unresponsive Current Visit: Yes Status: Acute (5) History of seizure Current Visit: Yes Status: Acute - Plan Plan: 1. Aggressive IV hydration 2. Insulin drip 3. Monitor electrolytes every 4 hr 4. Check acetone level 5. Neurochecks 6. Anti epileptics 7. Nephrology consultation 8. Repeat renal ultrasound 9. IV antibiotics 10. Supplement magnesium 11. GI and DVT prophylaxis Discharge Plan: Home Plan to discharge in: Greater than 2 days - Advance Directives Does patient have a Living Will: No Does patient have a Durable POA for Healthcare: No - Code Status/Comfort Care Code Status Assessed: Yes Code Status: Full Code Critical Care: No Time Spent Managing PTS Care (In Minutes): 50
[2019-06-11] MEDS ORDERED: NACHLORIDE 0.45% 1,000 ML with NA BICARB 8.4% 50 MEQ IV SCH ×2 (08:00)
--- NOTE | 2019-06-11 08:28 | EKG ---
Test Date: 2019-06-11 Test Time: 02:57:08 Drug Room Clerk: LALIT MEASUREMENT RESULTS: Intervals: Rate: 111 WI: 136 QRSD: 78 QT: 324 QTc: 440 [place]: P: 78 WI: 136 QRS: 66 T: 49 INTERPRETIVE STATEMENTS: Sinus tachycardia Otherwise normal ECG Compared to ECG 04/07/2019 09:03:57 Sinus rhythm no longer present Electronically Signed On 06-11-19 08:27:39 CDT by Dar Nolasco
[2019-06-11 08:37] LABS: Arterial Blood Carboxyhemoglob 1.2 % (0-1.5); Blood O2 Saturation 96.3 % (92-98.5)
[2019-06-11] MEDS: ENOXAPARIN 40 MG/0.4 ML SQ SCH (09:00)
[2019-06-11] MEDS: Magnesium Sulfate 2gm IVPB 2 G/50 ML BAG IV SCH ×3 (09:00→13:30)
[2019-06-11] MEDS ORDERED: CEFTRIAXONE/SWI 1gm 1 GM/10 ML SYR IVP SCH (09:00)
[2019-06-11 09:06] LABS: Absolute Lymphocytes (CBC) 0.9 K/uL (0.7-4.9); Basophils % 0.2 % (0-1.3); Hematocrit 34.2 % (39.6-49.0); Lymphocytes % 6.2 % (15.3-44.8); MPV 8.6 fL (7.6-11.3); RBC Red Blood Cell Count 4.02 M/uL (4.33-5.43)
[2019-06-11 09:10] LABS: Albumin 4.4 g/dL (3.4-5.0); Bilirubin Total 0.6 mg/dL (0.2-1.0); Potassium 3.8 mmol/L (3.5-5.1); Protein, Total 9.9 g/dL (6.4-8.2)
[2019-06-11 09:13] LABS: Magnesium 0.9 mg/dL (1.8-2.4)
[2019-06-11 09:47] LABS: CSF Glucose 332 mg/dL (40-70)
[2019-06-11 09:58] LABS: Appearance CLEAR (CLEAR); Body Fluid Source CSF; Body Fluid WBC 2 /mm^3; Color of fluid Colorless (COLORLESS)
[2019-06-11 09:59] LABS: Appearance CLEAR (CLEAR); Body Fluid Source CSF; Body Fluid WBC 2 /mm^3; Color of fluid Colorless (COLORLESS); Fluid Total Volume 4 ml
[2019-06-11] MEDS ORDERED: VANCOMYCIN 1.25 GM in NA CHLORIDE 0.9% 250 ML IVPB ONE (10:00)
[2019-06-11] MEDS: PANTOPRAZOLE INJ 80 MG in NA CHLORIDE 0.9% 250 ML IV SCH ×2 (10:00→20:45)
--- NOTE | 2019-06-11 10:01 | RAD REPORT ---
EXAM DESCRIPTION: CT - Head Brain Wo Cont - 06/11/2019 9:53 am CLINICAL HISTORY: DECLINING STATE, altered mental status, patient found on ground COMPARISON: Head C Spine Mpr Wo Con dated 06/11/2019 TECHNIQUE: Axial 5 mm thick images of the head were obtained without IV contrast. All CT scans are performed using dose optimization technique as appropriate and may include automated exposure control or mA/KV adjustment according to patient size. FINDINGS: No intracranial hemorrhage, mass, edema or shift of mid-line structures. No acute infarcti on changes seen. Atrophy and chronic ischemic changes again noted. No cortical edema or sulcal efface ment. Ventricles are normal. Minimal soft tissue prominence posterior left parietal scalp may be a sm all hematoma. Mastoid air cells and visualized portions of the paranasal sinuses are clear. No acute bony findings. IMPRESSION: No new intracranial finding. Exam is similar to the study performed 5 hours earlier.
--- NOTE | 2019-06-11 10:08 | RAD REPORT ---
EXAM DESCRIPTION: RAD - Chest Single View - 06/11/2019 3:35 am CLINICAL HISTORY: syncope, shortness of breath, fall COMPARISON: Portable March 2019 TECHNIQUE: AP portable chest image was obtained 06/11/2019 3:35 am . FINDINGS: No focal lung parenchymal process. Heart and vasculature are normal. No measurable pleural effusion and no pneumothorax. No acute bone finding. Left shoulder prosthesis in place. No acute aor tic findings suspected. IMPRESSION: No acute cardiopulmonary process. No suspicious change from comparison.
[2019-06-11] MEDS ORDERED: Magnesium Sulfate 2gm IVPB 6 G/150 ML BAG IV ONE (10:35)
[2019-06-11] MEDS: levETIRAcetam 500 MG in NA CHLORIDE 0.9% 100 ML IV SCH ×2 (10:45→20:25)
[2019-06-11] MEDS ORDERED: NA CHLORIDE 0.9% 1,000 ML ONE (10:54)
[2019-06-11] MEDS ORDERED: PANTOPRAZOLE 40 MG INJ IVP SCH (11:00)
[2019-06-11] MEDS ORDERED: ASPIRIN 600 MG/SUPP PR ONE (11:03)
[2019-06-11] MEDS ORDERED: ACETAMINOPHEN 650MG/RECT SUPP PR ONE (11:04)
[2019-06-11 11:38] LABS: BUN Blood Urea Nitrogen 63 mg/dL (7-18); Bicarbonate 20 mmol/L (21-32); Glucose Level 250 mg/dL (74-106); Potassium 3.4 mmol/L (3.5-5.1); Sodium Level 141 mmol/L (136-145)
[2019-06-11] MEDS ORDERED: D5W 1,000 ML with NA BICARB 8.4% 50 MEQ IV SCH ×2 (14:00)
--- NOTE | 2019-06-11 15:34 | P.CNS ---
Date of Consult: 06/11/19 Reason for Consult: NELSON Chief Complaint: Patient was found unresponsive by his neighbors Allergies No Known Allergies Allergy (Verified 12/20/18 19:16) - Past Medical/Surgical History Diabetic: Yes -: DM-IDDM -: Seizure -: HTN -: HLD -: COPD -: GERD -: L humerous sx with Titanium marjorie placement -: L hip and R hip sx - Family History Father Medical History: Heart disease, Other (see notes) Notes: from [place] - Social History Smoking Status: Unknown if ever smoked Alcohol use: Yes CD- Drugs: No Caffeine use: Yes Physical Examination Temp Pulse Resp BP Pulse Ox 99.4 F 95 H 16 154/98 H 100 06/11/19 12:15 06/11/19 14:00 06/11/19 14:00 06/11/19 14:00 06/11/19 14:00 Laboratory Data (last 24 hrs) 06/11/19 05:24: Glucose 561 H* 06/11/19 03:04: Amylase Cancelled 06/11/19 03:04: PT 13.3 H, INR 1.13, APTT 28.7 06/11/19 03:04: WBC 11.2 H, Hgb 10.7 L, Hct 33.0 L, Plt Count 226 06/11/19 03:04: Sodium 124 L, Potassium 5.0, BUN 68 H, Creatinine 5.72 H*, Glucose 755 H*, Magnesium 0.8 L* D, Total Bilirubin 0.6, AST 13 L, ALT 19, Alkaline Phosphatase 211 H, Amylase 47, Lipase 38 L - Problems (1) Acute kidney injury Current Visit: Yes Status: Acute Conclusions/Impression: pt is unable to provide Hx , HX obtained from chart a 54 Y/o man with PMhx of DM, HTN, seizure disorder brought for after he found unresponsive pt found unresponsive Cr was 4.7, with acidosis and hyperglycemia ROS unable to obtain general: lethargic, cahcexi Neck; Supple, No elevated JVD hear: RRR, normal S1,2 no murmur or rub Chest: CTAB, no rlaes or wheezes Abdomen: Sscaphoid, soft, NT Extremities No edema skin: multiple lesion all over the body A/P NELSON due to dehydration and obstructive uropathy will change IVF ot 1/2 NS at rate of 2/3 of his UO renal dose meds will rpt US in 2 days Hyperosmolar coma will dc bicarb drip cont insulin metabolic encepahlopathy head CT negative will add thiamin Hx of seizure disorder on Keppra hypokalmeia replace prn
[2019-06-11 15:46] LABS: Potassium 3.2 mmol/L (3.5-5.1)
[2019-06-11] MEDS: D5 0.45 NS 1,000 ML IV SCH (17:39)
[2019-06-11 19:45] LABS: Hematocrit 31.5 % (39.6-49.0)
[2019-06-11 20:00] LABS: Magnesium 2.5 mg/dL (1.8-2.4); Potassium 3.1 mmol/L (3.5-5.1)
[2019-06-11] MEDS: FOLIC ACID 1 MG in NA CHLORIDE 0.9% 50 ML IV SCH (20:25)
[2019-06-11] MEDS: KCL 20 MEQ/100 mL IVPB 20 MEQ/100 ML BAG IV SCH ×2 (20:26→23:06)
[2019-06-11] MEDS: THIAMINE 200 MG/2 ML INJ IVP SCH (20:26)
[2019-06-11] MEDS: NACHLORIDE 0.45% 1,000 ML IV SCH (20:52)
[2019-06-12 00:21] LABS: Potassium 3.2 mmol/L (3.5-5.1)
[2019-06-12] MEDS ORDERED: LORazepam 2 MG/ML VIAL ONE (00:38)
[2019-06-12] MEDS ORDERED: LORazepam 2 MG/ML VIAL IV STA (00:39)
[2019-06-12] MEDS: NACHLORIDE 0.45% 1,000 ML IV SCH ×3 (03:00→19:00)
[2019-06-12] MEDS ORDERED: KCL 20 MEQ/100 mL IVPB 20 MEQ/100 ML BAG IV SCH (04:00)
[2019-06-12 05:54] LABS: Absolute Lymphocytes (CBC) 0.9 K/uL (0.7-4.9); Basophils % 0.3 % (0-1.3); Hematocrit 28.4 % (39.6-49.0); Lymphocytes % 8.4 % (15.3-44.8); MPV 8.1 fL (7.6-11.3); RBC Red Blood Cell Count 3.36 M/uL (4.33-5.43)
[2019-06-12] MEDS: D5 0.45 NS 1,000 ML IV SCH ×3 (05:56→15:31)
[2019-06-12] MEDS: PANTOPRAZOLE INJ 80 MG in NA CHLORIDE 0.9% 250 ML IV SCH ×2 (05:59→16:00)
[2019-06-12 06:10] LABS: Magnesium 1.9 mg/dL (1.8-2.4)
[2019-06-12 06:37] LABS: Albumin 3.7 g/dL (3.4-5.0); Bilirubin Total 0.5 mg/dL (0.2-1.0); Potassium 3.5 mmol/L (3.5-5.1); Protein, Total 8.4 g/dL (6.4-8.2)
[2019-06-12 07:13] LABS: Phosphorus 4.2 mg/dL (2.5-4.9)
[2019-06-12] MEDS ORDERED: LORazepam 2 MG/ML VIAL IV PRN (07:44)
[2019-06-12] MEDS: ENOXAPARIN 40 MG/0.4 ML SQ SCH (09:00)
[2019-06-12] MEDS: THIAMINE 200 MG/2 ML INJ IVP SCH (09:03)
[2019-06-12] MEDS: levETIRAcetam 500 MG in NA CHLORIDE 0.9% 100 ML IV SCH ×2 (09:04→20:53)
[2019-06-12] MEDS: FOLIC ACID 1 MG in NA CHLORIDE 0.9% 50 ML IV SCH (09:04)
[2019-06-12] MEDS: CEFTRIAXONE/SWI 1gm 1 GM/10 ML SYR IVP SCH (10:11)
--- NOTE | 2019-06-12 11:42 | P.PN ---
Subjective Date of Service: 06/12/19 Chief Complaint: Patient was found unresponsive by his neighbors Conclusions/Impression: Subjective a 54 Y/o man with PMhx of DM, HTN, seizure disorder brought for after he found unresponsive pt found unresponsive Cr was 4.7, with acidosis and hyperglycemia today more alert, not oriented Cr trending down will rpt US tomorrow to evaluate for hydronephrosis resolution Past Medical/Surgical History Diabetic: Yes -: DM-IDDM -: Seizure -: HTN -: HLD -: COPD -: GERD -: L humerous sx with Titanium marjorie placement -: L hip and R hip sx - Family History Father Medical History: Heart disease, Other (see notes) Notes: from [place] - Social History Smoking Status: Unknown if ever smoked Alcohol use: Yes CD- Drugs: No Caffeine use: Yes general: alert, not oriented Neck; Supple, No elevated JVD hear: RRR, normal S1,2 no murmur or rub Chest: CTAB, no rlaes or wheezes Abdomen: Sscaphoid, soft, NT Extremities No edema skin: multiple lesion all over the body A/P NELSON due to dehydration and obstructive uropathy will change IVF ot 1/2 NS at rate of 2/3 of his UO renal dose meds will rpt US tomorrow Obstructive uropathy will rpt US tomorrow and if no improvement will consult urology DM on insulin metabolic encepahlopathy head CT negative cont thiamin will add folic acid Hx of seizure disorder on Keppra hypokalmeia replace prn Physical Examination - Vital Signs Temperature: 98.6 F Blood Pressure: 145/88 Pulse: 82 Respirations: 15 Pulse Ox (%): 98 - Studies Microbiology Data (last 24 hrs): 06/11/19 03:04 Blood - Blood Anaerobic Blood Culture - Final Assessment And Plan - Current Problems (Diagnosis) (1) Acute kidney injury Current Visit: Yes Status: Acute
[2019-06-12] MEDS: MORPHINE 2 MG/ML SYR IV PRN ×2 (16:47→23:19)
[2019-06-12] MEDS: ENOXAPARIN 30 MG/0.3 ML SQ SCH (16:48)
[2019-06-12] MEDS: LORazepam 2 MG/ML VIAL IV PRN ×2 (17:21→23:42)
--- NOTE | 2019-06-12 17:50 | PN ---
Subjective: Currently, patient is lying in bed. He is sleeping, but easily arousable. He is confus ed. Does not complain of any chest pain or abdominal pain. He is not agitated today. Review of Systems: Otherwise unobtainable. Physical Examination: Vital Signs: Blood pressure is 145/88, respiratory rate 15, pulse 82, temperature 98.6, saturating 1 00% on room air. General: Patient is sleeping but easily arousable. Does not look in any distress, but he is confuse d. HEENT: Atraumatic, normocephalic. PERRLA. Oral mucosa is moist. Neck: Supple. No JVD. No bruits. Chest: Clear to auscultation. No rales, no wheezing. Heart: Regular rate and rhythm. S1, S2 normal. No gallop or murmur. Abdomen: Soft, nontender. No masses. Positive bowel sounds. Extremities: No clubbing, cyanosis, or edema. Skin: With diffuse open lesion on upper and lower extremity. Neurologic: Deferred. The patient is arousable, but he is not following commands. He is not able t o communicate. Laboratory Data: Today, showed CBC within normal except for hemoglobin 9.8 and neutrophil of 82.9. Chemistry within normal except for chloride 112, carbon dioxide 20, BUN of 48, creatinine of 3.5, glu cose of 118, alkaline phosphatase 145. Anion gap closed yesterday at 10 currently. Assessment And Plan: 1.Diabetic ketoacidosis of now and gap closed. Patient continued to be on insulin drip because he i s not able to eat, so we will hold off switching him to subcutaneous insulin until he is more awake a nd able to have oral intake. Workup so far for the diabetic ketoacidosis was inconclusive with blood cultures so far negative. UA showed less than 10,000 colony. Patient is empirically on IV antibiot ic with vancomycin and ceftriaxone, continue for now. 2.Metabolic encephalopathy. Patient continued to be confused. We do not know his baseline. He has a history of seizure. His CAT scan was negative for stroke yesterday. The patient had CT of the he ad. I will proceed with MRI tomorrow. I will also order neurology consult by Dr. Quevedo. Hopeful ly, he will see patient tomorrow. 3.History of seizure, none since admission. Patient on Keppra, we will continue that. I will check level in the morning. 4.Acute renal failure. Appreciate Nephrology input, ?dehydration. Continue patient on IV fluids. The patient has obstructive uropathy. The patient currently on half-normal saline. Ultrasound will be done tomorrow and depend on the results, we may consult Urology. 5.Diabetes mellitus. I will check hemoglobin A1c. 6.Unknown history of alcohol intake, but will continue folic and thiamine that was ordered by Nephro bernie. 7.Hypokalemia, replace. 8.Deep vein thrombosis prophylaxis, on Lovenox 40. We will need to switch to 30 because patient has renal insufficiency. MT/MODL Voice ID: [id number] Report ID: [id number]
[2019-06-13] MEDS: D5 0.45 NS 1,000 ML IV SCH ×2 (02:35→08:00)
[2019-06-13] MEDS: NACHLORIDE 0.45% 1,000 ML IV SCH ×5 (03:00→23:01)
[2019-06-13 05:06] LABS: Absolute Lymphocytes (CBC) 0.9 K/uL (0.7-4.9); Basophils % 0.5 % (0-1.3); Hematocrit 28.8 % (39.6-49.0); Lymphocytes % 14.2 % (15.3-44.8); MPV 8.1 fL (7.6-11.3)
[2019-06-13] MEDS: PANTOPRAZOLE INJ 80 MG in NA CHLORIDE 0.9% 250 ML IV SCH (05:10)
[2019-06-13 05:36] LABS: Phosphorus 3.2 mg/dL (2.5-4.9)
[2019-06-13] MEDS ORDERED: Magnesium Sulfate 2gm IVPB 2 G/50 ML BAG IV ONE ×2 (05:36→19:41)
[2019-06-13 05:40] LABS: Magnesium 1.2 mg/dL (1.8-2.4)
[2019-06-13] MEDS: KCL 20 MEQ/100 mL IVPB 20 MEQ/100 ML BAG IV SCH ×2 (05:52→07:55)
[2019-06-13] MEDS ORDERED: GLUCAGON 1 MG/VIAL IM PRN (06:40)
[2019-06-13] MEDS ORDERED: D50W 25 GM/50 ML SYRINGE/VIAL IV PRN (06:40)
--- NOTE | 2019-06-13 06:48 | P.PN ---
Subjective Date of Service: 06/13/19 Patient doing better. He is much more awake today. He is wanting to each. We will go ahead and start him on a diabetic diet. We will give him his long- acting insulin. We will discontinue his insulin drip. Continue with IV hydration with normal saline at this time after insulin drip is discontinued. Review of Systems 10-point ROS is otherwise unremarkable Physical Examination - Vital Signs Temperature: 97.7 F Blood Pressure: 137/105 Pulse: 97 Respirations: 10 Pulse Ox (%): 96 - Physical Exam General: Alert, In no apparent distress, Other (Still a little confused but he is much more awake and alert today.) Respiratory: Clear to auscultation bilaterally, Normal air movement Cardiovascular: Regular rate/rhythm, Normal S1 S2, No murmurs Gastrointestinal: Normal bowel sounds, Soft and benign, Non-distended, No tenderness Musculoskeletal: No clubbing, No swelling, No tenderness Integumentary: No rashes Neurological: Sensation intact, Cranial nerves 3-12 intact, Abnormal strength - Studies Microbiology Data (last 24 hrs): 06/11/19 03:04 Blood - Blood Anaerobic Blood Culture - Final Medications List Reviewed: Yes Assessment & Plan - Problems (Diagnosis) (1) Acute kidney injury Current Visit: Yes Status: Acute (2) DKA (diabetic ketoacidoses) Current Visit: Yes Status: Acute (3) Obstructive uropathy Current Visit: Yes Status: Acute (4) Unresponsive Current Visit: Yes Status: Acute (5) History of seizure Current Visit: Yes Status: Acute (6) Coffee ground emesis Current Visit: Yes Status: Acute (7) Generalized weakness Current Visit: Yes Status: Acute - Plan Plan: 1. Aggressive IV hydration; with switches D5 over to normal saline if okay with Nephrology. We will discontinue his insulin drip. Continue monitoring his electrolytes per Nephrology recommendations. 2. Insulin drip will be discontinued 3. Monitor electrolytes daily 4. Acetone level has been negative 5. start Keppra twice a day orally and discontinue IV Keppra 6. Physical therapy evaluation 7. Continue potassium and magnesium supplementation 8. Monitor hemoglobin and continue Protonix twice daily 9. GI and DVT prophylaxis Discharge Plan: Home Plan to discharge in: Greater than 2 days - Advance Directives Does patient have a Living Will: No Does patient have a Durable POA for Healthcare: No - Code Status/Comfort Care Code Status Assessed: Yes Code Status: Full Code Critical Care: No Time Spent Managing PTS Care (In Minutes): 30
[2019-06-13] MEDS ORDERED: MAGNESIUM 50% 3 GM in NA CHLORIDE 0.9% 100 ML IV ONE (07:30)
[2019-06-13] MEDS: INSULIN 70/30 100 UNITS/ML SQ SCH ×2 (08:53→16:52)
[2019-06-13] MEDS ORDERED: lisinopriL 20 MG TAB PO SCH (09:00)
[2019-06-13] MEDS ORDERED: HOME MED 1 EA UNK (Levetiracetam [Keppra] 1,000 MG) PO SCH (09:00)
[2019-06-13] MEDS: FOLIC ACID 1 MG TABLET PO SCH (09:00)
[2019-06-13] MEDS ORDERED: PANTOPRAZOLE 40MG TABLET PO SCH (09:00)
[2019-06-13] MEDS: ENOXAPARIN 30 MG/0.3 ML SQ SCH (10:18)
[2019-06-13] MEDS: FOLIC ACID 1 MG in NA CHLORIDE 0.9% 50 ML IV SCH (10:18)
[2019-06-13] MEDS: CEFTRIAXONE/SWI 1gm 1 GM/10 ML SYR IVP SCH (10:19)
[2019-06-13] MEDS: THIAMINE 200 MG/2 ML INJ IVP SCH (10:20)
--- NOTE | 2019-06-13 10:48 | RAD REPORT ---
EXAM DESCRIPTION: US - Renal Ultrasound-Complete - 06/13/2019 10:32 am CLINICAL HISTORY: evaluate for hydronephrosisHydronephrosis, abnormal renal function, abnormal CT st udy COMPARISON: Abdomen Pelvis Wo Contrast dated 06/11/2019 FINDINGS: The right kidney measures 11.4 x 5.96.5 cm. The left kidney measures 10.7 x 6.2 x 5.3 cm. Cortical thickness is normal. Echogenicity is increased slightly. This is nonspecific but can be see n with medical renal disease. No solid mass lesion identified. Bilateral hydronephrosis present. Dila tion is similar to slightly decreased from comparison. Urinary bladder is mostly contracted. Keene catheter in place. Bladder wall thickening is present. Th is could be chronic bladder wall thickening that seen with outlet obstruction. Wall thickening from c ystitis is possible. IMPRESSION: Hydronephrosis similar to slightly decreased from the prior June [address] CT study. Slight increase in cortical echogenicity is present. This is nonspecific and can be body habitus rashard fact or mild medical renal disease. Bladder wall thickening is seen in the partially filled bladder. Keene catheter in place. Wall thicke nora from cystitis and chronic outlet obstruction are both possible.
--- NOTE | 2019-06-13 11:13 | RAD REPORT ---
EXAM DESCRIPTION: CT - CTHCSPWOC - 06/11/2019 5:27 am CLINICAL HISTORY: The patient is 54 years old and is Male; syncope TECHNIQUE: Axial computed tomography images of the head/brain and cervical spine without intravenous contrast. Sagittal and coronal reformatted images were created and reviewed. This CT exam was pe rformed using one or more of the following dose reduction techniques: automated exposure control, a djustment of the mA and/or kV according to patient size, and/or use of iterative reconstruction techn ique. COMPARISON: No relevant prior studies available. FINDINGS: BRAIN: There is diffuse cerebral atrophy present, consistent with this patient's age. There is patchy hypoattenuation of the deep white matter which is non-specific, but most likely owing to chronic small vessel ischemic change in a patient of this age group. No intracranial hemorrhage , mass effect, or midline shift seen. There are no extra-axial fluid collections. VENTRICLES: Unremarkable. No ventriculomegaly. SKULL: No acute fracture. SINUSES: Unremarkable as visualized. No acute sinusitis. MASTOID AIR CELLS: Unremarkable as visualized. No mastoid effusion. VERTEBRAE: The vertebral body heights and alignment are maintained. No acute fracture. DISCS/SPINAL CANAL/NEURAL FORAMINA: There is multi-level intervertebral disc height loss. There are disc-osteophyte complexes at several levels, with associated mild spinal canal narrowing. There i s also facet hypertrophy and uncovertebral joint osteophytosis, with associated multilevel neural for aminal narrowing. SOFT TISSUES: The soft tissues are normal. LUNG APICES: The lung apices are clear. IMPRESSION: 1. No acute intracranial findings. 2. Spondylosis of the cervical spine without acute findings. Electronically signed by: Dori Yarbrough MD 06/11/2019 5:10 AM CDT Due to temporary technical issues with the PACS/Fluency reporting system, reports are being signed by the in house radiologist as a courtesy to ensure prompt reporting. The interpreting radiologist is f ully responsible for the content of the report.
[2019-06-13] MEDS: DULOXETINE 30 MG CAP PO SCH ×2 (11:17→20:23)
[2019-06-13] MEDS: GABAPENTIN 300 MG CAP PO SCH ×3 (11:17→20:23)
[2019-06-13] MEDS: FENOFIBRATE 160 MG TAB PO SCH (11:17)
--- NOTE | 2019-06-13 11:17 | RAD REPORT ---
EXAM DESCRIPTION: CT - Abdomen Pelvis Wo Contrast - 06/11/2019 5:27 am CLINICAL HISTORY: The patient is 54 years old and is Male; PAIN TECHNIQUE: Axial computed tomography images of the abdomen and pelvis without intravenous contrast. Sagittal and coronal reformatted images were created and reviewed. This CT exam was performed usi ng one or more of the following dose reduction techniques: automated exposure control, adjustment o f the mA and/or kV according to patient size, and/or use of iterative reconstruction technique. COMPARISON: No relevant prior studies available. FINDINGS: ARTIFACTS: The exam is suboptimal secondary to motion artifact. LUNG BASES: Unremarkable. No mass. No consolidation. ABDOMEN: LIVER: The liver demonstrates a subtle nodular contour. GALLBLADDER AND BILE DUCTS: No calcified stones. No ductal dilation. PANCREAS: Unremarkable. No ductal dilation. SPLEEN: The spleen is enlarged. ADRENALS: Unremarkable. No mass. KIDNEYS AND URETERS: Bilateral hydroureteronephrosis is noted. No obstructing calculus of either kidney is seen. STOMACH AND BOWEL: The stomach is significantly distended with fluid and air. The small bowel an d colon are normal in caliber. A moderate amount stool is present throughout the colon. There is no b owel obstruction. PELVIS: APPENDIX: The appendix is normal in caliber without surrounding inflammation. BLADDER: Diffuse bladder wall thickening is present. A Keene catheter is present within the blad rober. No stones. REPRODUCTIVE: Unremarkable as visualized. ABDOMEN and PELVIS: INTRAPERITONEAL SPACE: Unremarkable. No free air. No significant fluid collection. BONES/JOINTS: Postsurgical change of the bilateral proximal femoral is noted. Multilevel degen erative change of the spine is present. SOFT TISSUES: The soft tissues are normal. VASCULATURE: Unremarkable. No abdominal aortic aneurysm. LYMPH NODES: Unremarkable. No enlarged lymph nodes. IMPRESSION: 1. Moderate bladder distention with associated bladder wall thickening. Findings may b e secondary to cystitis. 2. Mild to moderate bilateral hydroureteronephrosis without obstructing calculus. Findings may be s econdary to the process within the bladder. 3. Fluid and air distended stomach which may be secondary to recent ingestion. Gastroparesis is wit hin the differential. Electronically signed by: Dori Yarbrough MD 06/11/2019 5:13 AM CDT Due to temporary technical issues with the PACS/Fluency reporting system, reports are being signed by the in house radiologist as a courtesy to ensure prompt reporting. The interpreting radiologist is f ully responsible for the content of the report.
[2019-06-13] MEDS: levETIRAcetam 500 MG TAB PO SCH (11:18)
[2019-06-13] MEDS: PANTOPRAZOLE 40MG TABLET PO SCH ×2 (11:18→20:24)
[2019-06-13] MEDS ORDERED: chlordiazePOXIDE HCl 5 MG CAP PO PRN (12:25)
[2019-06-13] MEDS: INSULIN -REGULAR HUMAN 50 UNIT/0.5 ML ML SQ SCH ×3 (12:53→20:22)
[2019-06-13] MEDS: LORazepam 2 MG/ML VIAL IV PRN (13:03)
[2019-06-13 16:13] LABS: Magnesium 1.5 mg/dL (1.8-2.4); Potassium 3.8 mmol/L (3.5-5.1)
[2019-06-13] MEDS: TAMSULOSIN 0.4 MG SR CAP PO SCH (16:52)
--- NOTE | 2019-06-13 18:57 | CON ---
Reason For Consultation: Consultation called because of altered mental status. History Of Present Illness: Mr. Gomes is a 54-year-old patient with history of uncontrolled diabetes mellitus, chronic alcohol abuse, complex partial seizures, who was found unresponsive by neighbors. At [facility], his head CT scan showed no acute intracranial abnormalities. There was a br uise in the back of his scalp with a slight hematoma. A repeat CT scan within 7 hours showed no blee ding or any acute changes. Cervical spine CT scan identified no acute findings. There was spondylos is otherwise. He also had abdomen and pelvis CT scan, which showed moderate bladder distention possi nnamdi secondary to cystitis, moderate bilateral hydroureteronephrosis without an obstructing calculus, which was felt to be due to processes within the bladder. There was fluid and air distending of the stomach with suggestion of possible gastroparesis. The patient was admitted to the ICU for further m anagement. From earlier today when speaking with the nursing staff, the patient had regained awarene ss, was up interacting and eating, and then became very belligerent, wanted to leave and started to s ee things not present, which the staff notes that he says he gets even many times, possibly related t o chronic alcohol use and alcohol withdrawal symptoms. He was given benzodiazepines for alcohol with drawal. He is currently sedated and in ICU bed. Past Medical History: As indicated in addition to dyslipidemia, COPD, gastroesophageal reflux diseas e. Surgical History: Left humerus surgery with titanium marjorie, left hip and right hip surgery. Family History: Heart disease in father. Social History: Chronic alcohol use, possible tobacco use as well, and caffeine use. Allergies: NO KNOWN DRUG ALLERGIES. Home Medications: Albuterol ProAir HFA 2 puffs every 4 hours as needed, aspirin 81 mg daily, duloxet ine 100 mg twice daily, vitamin D2 30,000 units per week, fenofibrate 1 tablet daily, ferrous sulfate daily, folic acid daily, gabapentin 3 times daily, levetiracetam 1000 mg daily, lisinopril daily, tr azodone at bedtime, pantoprazole daily, metformin extended release 1000 mg twice daily, Claritin 10 m g daily. He does take NPH NovoLog insulin 35 units 3 times daily. Clindamycin 300 mg every 6 hours, tramadol 50 mg every 6 hours as needed. Review of Systems: Not possible. The patient is sedated with benzodiazepines for alcohol withdrawal and possible early DTs. Physical Examination: Vital Signs: Blood pressure 111/81, pulse 77 to 91, respiratory rate 12 to 18, temperature 98.3, oxy gen saturation 100% on room air. Weight 138 pounds, height 5 feet 9 inches, BMI 20.4. General: Mr. Gomes is in ICU bed. He is in no acute distress. He is sedated again from benzodiazep magdalena. He does have a graying full perez. HEENT: He has slight bruising on the back of the head, otherwise atraumatic. Sclerae appears anicte ced. Oropharynx is moist and pink. Neck: Supple. Chest: Clear. Heart: Regular. Extremities: Show no significant edema or cyanosis. Neurologic: Unable to perform a full neurological examination. The face is symmetric. Staff noted that he moved the arms equally well without any focal findings and did respond to their interaction a ppropriately while he was awake. His tone is normal. Reflexes symmetric. Laboratory Studies: White blood cell count 6.4, hemoglobin 9.6, hematocrit 28.8, platelets 164. INR 1.13. His most recent chemistry, sodium 141, potassium 3.0, chloride 112, carbon oxide 21, BUN 35, creatinine 2.74, and his glucose ranged from 240 to 313. Calcium 8.3, magnesium very low at 1.2, francisco sphorus 3.2. Hemoglobin A1c is 12.3. Lactic acid 0.7. Cholesterol panel, LDL 78, HDL 54, triglycer ides 129, total cholesterol 158. His procalcitonin was negative at 0.18. His lumbar puncture reveal ed a small amount of acetone with glucose 332, protein 54, wbc's 2, red blood cells 20, and a drug sc reen was negative. Assessment: Mr. Gomes is a 54-year-old patient with multifactorial reasons for his encephalopathy in cluding significant metabolic derangements, likely delirium tremens from alcohol withdrawal and possi nnamdi a Korsakoff psychosis related to his alcohol use, in addition to renal failure and dehydration. He has no evidence of a systemic or central nervous system infection. He has no evidence of any foca l neurological deficits or stroke. Plan: Continue with current supportive care with hydration to assess his recovery of renal function. Aggressive management of his uncontrolled diabetes mellitus. Continue with Kefelisara, unlikely that t he patient is seizing at this point. At some point, he may be able to withstand an MRI of the brain and may do an EEG when convenient. Continue Keppra 1000 mg as likely it is to be more than once a da y, potentially 500 mg twice daily. The patient should begin to return towards his baseline within th e next 3 days. INDERJIT/DAVIN Voice ID: [id number] Report ID: [id number]
[2019-06-13] MEDS: TRAZODONE 50 MG TABLET PO SCH (20:23)
[2019-06-13] MEDS: ATORVASTATIN 20 MG TAB PO SCH (20:24)
--- NOTE | 2019-06-14 01:14 | PN ---
Date of Progress Note: 06/12/2019 Chief Complaint: Diabetes mellitus, diabetic kidney disease, hypertensive kidney disease. History Of Present Illness: Patient is in ICU. He remains unresponsive. Creatinine level was up to 4.7. He had metabolic acidosis with hyperglycemia and uncontrolled diabetes with DKA. Patient has acute kidney injury due to volume depletion and obstructive uropathy. He has a bladder outlet obstruction and Keene catheter was used. Patient is on IV fluids for hydration to prevent renal hypoperfusion. Patient has encephalopathy. CT scan of the head was found to be negative for acute changes. He is on thiamine for metabolic encephalopathy. He has history of seizure on Keppra. He was found to have hypokalemia, potassium level was below normal ranges and he received replacement. Review of Systems: Unobtainable. Physical Examination: Lungs: Diminished breath sounds in the bases. Heart: S1-S2. Abdomen: Soft, benign. Extremities: Minimal edema. Multiple skin excoriations and chronic dermatitis. Laboratory Work: Hemoglobin 9.6, WBC 6.4, platelet count 165,000, glucose 296, sodium 141, potassium 3.0, chloride 112, CO2 21, BUN 35, creatinine 2.75, calcium 8.3, phosphorus 3.2, magnesium 1.2. Impression And Plan: 1. Acute kidney injury secondary to severe prerenal azotemia, renal hypoperfusion secondary to uncontrolled diabetes with hyperglycemia. Metabolic acidosis is improving. 2. Hypokalemia. Replacement was ordered. Monitor magnesium level and replace magnesium. 3. Diabetes mellitus, uncontrolled. Avoid nephrotoxic medication. Continue IV fluids. Monitor electrolytes. Adjust hydration. 4. Seizure. Continue treatment with medication, check CK level to rule out rhabdomyolysis. I spent total 36 min including 25 min to coordinate care plan. ANGELIA/DAVIN Voice ID: [id number] Report ID: [id number] KATHYA
[2019-06-14 05:14] LABS: Absolute Lymphocytes (CBC) 0.8 K/uL (0.7-4.9); Basophils % 0.5 % (0-1.3); Hematocrit 26.8 % (39.6-49.0); Lymphocytes % 13.2 % (15.3-44.8); MPV 8.1 fL (7.6-11.3); RBC Red Blood Cell Count 3.09 M/uL (4.33-5.43)
[2019-06-14 05:35] VITALS: BMI 20.1
[2019-06-14 05:39] LABS: Magnesium 1.7 mg/dL (1.8-2.4); Phosphorus 3.5 mg/dL (2.5-4.9); Potassium 3.3 mmol/L (3.5-5.1)
[2019-06-14] MEDS ORDERED: NA CHLORIDE 0.9% 1,000 ML IV ONE (07:11)
[2019-06-14] MEDS ORDERED: MAGNESIUM SULFATE 1 gm IVPB 1 GM/100 ML BAG IV ONE (07:11)
[2019-06-14] MEDS ORDERED: NA CHLORIDE 0.9% 1,000 ML ONE (07:13)
[2019-06-14] MEDS: KCL 20 MEQ/100 mL IVPB 20 MEQ/100 ML BAG IV SCH ×2 (07:25→09:19)
[2019-06-14] MEDS: INSULIN -REGULAR HUMAN 50 UNIT/0.5 ML ML SQ SCH ×4 (07:30→21:30)
--- NOTE | 2019-06-14 07:53 | P.PN ---
Subjective Date of Service: 06/14/19 Primary Care Provider: unknown Chief Complaint: Patient was found unresponsive by his neighbors Subjective: Other (Patient lethargic. Blood pressures were low this morning.) Physical Examination - Vital Signs Temperature: 98.6 F Blood Pressure: 77/58 Pulse: 96 Respirations: 17 Pulse Ox (%): 99 - Physical Exam General: Alert, Cooperative HEENT: Atraumatic Neck: Supple Respiratory: Clear to auscultation bilaterally, Normal air movement Cardiovascular: Normal pulses, Regular rate/rhythm Gastrointestinal: Soft and benign, Non-distended, No masses, No rebound, No guarding Integumentary: No erythema, No warmth, No cyanosis Neurological: Normal strength at 5/5 x4 extr, Normal tone - Studies Medications List Reviewed: Yes Assessment & Plan Discharge Plan: Other (SNF) Plan to discharge in: 72 Hours Physician Review Additional Text: Impression: Metabolic encephalopathy with acute renal injury likely volume depletion Hypotension likely from volume depletion and medication with history of hypertension Alcohol abuse with possible withdrawal Bilateral hydronephrosis likely related to chronic outlet obstruction suspect BPH Seizure disorder Diabetes mellitus type 2 with DKA resolved with hyperglycemia Anemia of chronic disease Plan: Metabolic encephalopathy with acute renal injury likely volume depletion: Blood pressure was low this morning. Will give 2 L fluid bolus to maintain blood pressure. Will monitor blood pressure closely. Patient may require more hydration. Continue IV fluid maintenance. Will discontinue lisinopril. Will also discontinue Librium due to increased sedation. Once blood pressure stable will ambulate. If ambulating well and stable will transfer to the floor. Antibiotics were discontinued yesterday since no evidence of infection noted. Blood cultures negative. Urine cultures negative. Will discuss case with nephrology. Patient will likely require skilled placement at discharge. Will discuss with social director. Hypotension likely from volume depletion and medication with history of hypertension: Will discontinue lisinopril. Continue IV fluid hydration. Will monitor closely. Bilateral hydronephrosis likely related to chronic outlet obstruction suspect BPH: Continue Flomax. Will monitor closely. Catheter in place. Will discuss with urology if available. Will also discuss with nephrology. Alcohol abuse with possible withdrawal: Librium was causing the patient too much sedation. Will discontinue. Will provide Ativan as needed. Seizure disorder: Continue with Keppra. Will obtain MRI to once patient is less agitated. Original CT scan unremarkable. Case discussed with Neurology yesterday. Diabetes mellitus type 2 with DKA resolved with hyperglycemia: DKA has resolved. Continue to adjust basal insulin. Sliding scale in place. Anemia of chronic disease: Will monitor closely. Time Spent Managing Pts Care (In Minutes): 55
[2019-06-14] MEDS: NACHLORIDE 0.45% 1,000 ML IV SCH ×2 (08:27→20:22)
[2019-06-14] MEDS: INSULIN 70/30 100 UNITS/ML SQ SCH ×2 (08:37→17:52)
[2019-06-14] MEDS: GABAPENTIN 300 MG CAP PO SCH ×3 (09:00→21:30)
[2019-06-14] MEDS: FOLIC ACID 1 MG TABLET PO SCH (09:16)
[2019-06-14] MEDS: DULOXETINE 30 MG CAP PO SCH ×2 (09:16→21:29)
[2019-06-14] MEDS: PANTOPRAZOLE 40MG TABLET PO SCH ×2 (09:17→21:30)
[2019-06-14] MEDS: TAMSULOSIN 0.4 MG SR CAP PO SCH (09:17)
[2019-06-14] MEDS: FENOFIBRATE 160 MG TAB PO SCH (09:17)
[2019-06-14] MEDS: ENOXAPARIN 30 MG/0.3 ML SQ SCH (09:17)
[2019-06-14] MEDS: THIAMINE 200 MG/2 ML INJ IVP SCH (09:17)
[2019-06-14] MEDS: levETIRAcetam 500 MG TAB PO SCH (09:17)
--- NOTE | 2019-06-14 10:30 | P.PN ---
Subjective Date of Service: 06/15/19 Primary Care Provider: unknown Chief Complaint: Patient was found unresponsive by his neighbors Conclusions/Impression: Subjective a 54 Y/o man with PMhx of DM, HTN, seizure disorder brought for after he found unresponsive pt found unresponsive Cr was 4.7, with acidosis and hyperglycemia Today More alert and oriented BP on the low side, will dc flomax repeated US still shows hydro, will keep Graham and Urology F/U as an OP Cr trending down Past Medical/Surgical History Diabetic: Yes -: DM-IDDM -: Seizure -: HTN -: HLD -: COPD -: GERD -: L humerous sx with Titanium marjorie placement -: L hip and R hip sx - Family History Father Medical History: Heart disease, Other (see notes) Notes: from [place] - Social History Smoking Status: Unknown if ever smoked Alcohol use: Yes CD- Drugs: No Caffeine use: Yes general: alert, not oriented AAOX1-2 NEck: supple, No elevated JVD hear: RRR, normal S1,2 no murmur or rub Chest: CTAB, no rlaes or wheezes Abdomen: Scaphoid, soft, NT Extremities No edema skin: multiple lesion all over the body A/P NELSON due to dehydration and obstructive uropathy Cont IVF renal dose meds will keep graham , Urology f/u as an OP DM on insulin metabolic encepahlopathy head CT negative improving now off ABx CSF with high glucose and protein Hx of seizure disorder on Keppra hypokalmeia and hypomagnesemia replace prn Physical Examination - Vital Signs Temperature: 98.6 F Blood Pressure: 77/58 Pulse: 96 Respirations: 17 Pulse Ox (%): 99 - Studies Medications List Reviewed: Yes Assessment And Plan - Current Problems (Diagnosis) (1) Acute kidney injury Current Visit: Yes Status: Acute
[2019-06-14] MEDS: TRAZODONE 50 MG TABLET PO SCH (21:30)
[2019-06-14] MEDS: ATORVASTATIN 20 MG TAB PO SCH (21:30)
[2019-06-14] MEDS: MORPHINE 2 MG/ML SYR IV PRN (22:31)
[2019-06-15 05:03] LABS: Basophils % 0.3 % (0-1.3); Lymphocytes % 16.8 % (15.3-44.8); MPV 8.4 fL (7.6-11.3); RBC Red Blood Cell Count 3.02 M/uL (4.33-5.43)
[2019-06-15 05:42] LABS: Ferritin 134.7 ng/mL (26-388); Potassium 3.1 mmol/L (3.5-5.1)
[2019-06-15 05:43] LABS: Magnesium 1.3 mg/dL (1.8-2.4)
[2019-06-15] MEDS: NACHLORIDE 0.45% 1,000 ML IV SCH ×2 (05:56→08:00)
[2019-06-15] MEDS: KCL 20 MEQ/100 mL IVPB 20 MEQ/100 ML BAG IV SCH ×4 (06:00→16:00)
[2019-06-15] MEDS: MAGNESIUM SULFATE 1 gm IVPB 1 GM/100 ML BAG IV SCH ×2 (06:01→08:00)
[2019-06-15] MEDS: INSULIN -REGULAR HUMAN 50 UNIT/0.5 ML ML SQ SCH ×4 (07:30→22:22)
--- NOTE | 2019-06-15 08:57 | P.PN ---
Subjective Date of Service: 06/15/19 Primary Care Provider: unknown Chief Complaint: Patient was found unresponsive by his neighbors Subjective: Other (Patient more alert today. Patient reports pain to the left hip. Reporting some limping.) Physical Examination - Vital Signs Temperature: 97.9 F Blood Pressure: 93/67 Pulse: 79 Respirations: 11 Pulse Ox (%): 99 - Physical Exam General: Alert, In no apparent distress, Cooperative HEENT: Atraumatic Neck: Supple Respiratory: Clear to auscultation bilaterally, Normal air movement Cardiovascular: Normal pulses, Regular rate/rhythm Gastrointestinal: Normal bowel sounds, Soft and benign, Non-distended Musculoskeletal: No warmth, Tenderness (Mild pain to the left hip region.) Integumentary: No erythema, No warmth, No cyanosis, Other (Muscle wasting to the upper lower extremities.) Neurological: Normal speech, Normal strength at 5/5 x4 extr, Normal tone, Normal affect - Studies Microbiology Data (last 24 hrs): 06/11/19 03:04 Blood - Blood Anaerobic Blood Culture - Final Medications List Reviewed: Yes Assessment & Plan Discharge Plan: Other ([facility] facility) Plan to discharge in: 48 Hours Physician Review Additional Text: Impression: Metabolic encephalopathy with acute renal injury likely volume depletion Hypotension likely from volume depletion and medication with history of hypertension Alcohol abuse with possible withdrawal Bilateral hydronephrosis likely related to chronic outlet obstruction suspect BPH Seizure disorder Diabetes mellitus type 2 with DKA resolved with hyperglycemia Anemia of chronic disease Left hip pain. Plan: Metabolic encephalopathy with acute renal injury likely volume depletion: Continue IV fluid. Blood pressure stable this time. Will ambulate with physical therapy and occupational therapy. Patient desires to go to a skilled facility. Will have social work evaluate for this. Blood pressure medications have been discontinued. Librium also has been discontinued. No significant agitated noted at this time. Blood cultures negative. Urine culture negative. Patient off antibiotic therapy. Continue IV fluid hydration. Will monitor closely. Patient reported some left hip pain x-ray. Anticipate improvement over the next 48 hr. Will transfer to the floor if stable. Hypotension likely from volume depletion and medication with history of hypertension: Patient now off lisinopril. Continue IV fluid hydration. If stable will transfer to the floor. Bilateral hydronephrosis likely related to chronic outlet obstruction suspect BPH: Continue Flomax. Will monitor closely. Catheter in place. Urology is not available. Will continue to have catheter in place. This can be addressed as an outpatient. Alcohol abuse with possible withdrawal: Patient now off Librium. Significant agitation noted. Will provide Ativan as needed. Seizure disorder: Continue with Keppra. Will obtain MRI to once patient is less agitated. Original CT scan unremarkable. Case discussed with Neurology yesterday. Diabetes mellitus type 2 with DKA resolved with hyperglycemia: DKA has resolved. Continue to adjust basal insulin. Sliding scale in place. Anemia of chronic disease: Will monitor closely. Will start iron, B12 and thiamine supplementation. Left hip pain: Will check x-ray. Will have physical therapy assess ambulation. Will pursue skilled placement. Time Spent Managing Pts Care (In Minutes): 55
[2019-06-15] MEDS ORDERED: TAMSULOSIN 0.4 MG SR CAP PO SCH (09:00)
[2019-06-15] MEDS: CYANOCOBALAMIN 1,000 MCG TAB PO SCH (09:00)
[2019-06-15] MEDS: INSULIN 70/30 100 UNITS/ML SQ SCH ×2 (09:20→19:50)
[2019-06-15] MEDS: THIAMINE HCL 100 MG TABLET PO SCH (09:21)
[2019-06-15] MEDS: ENOXAPARIN 30 MG/0.3 ML SQ SCH (09:21)
[2019-06-15] MEDS: GABAPENTIN 300 MG CAP PO SCH ×3 (09:22→22:23)
[2019-06-15] MEDS: levETIRAcetam 500 MG TAB PO SCH (09:22)
[2019-06-15] MEDS: DULOXETINE 30 MG CAP PO SCH ×2 (09:22→22:23)
[2019-06-15] MEDS: FERROUS SULFATE 325 MG TAB PO SCH (09:23)
[2019-06-15] MEDS: FOLIC ACID 1 MG TABLET PO SCH (09:23)
[2019-06-15] MEDS: FENOFIBRATE 160 MG TAB PO SCH (09:23)
[2019-06-15] MEDS: PANTOPRAZOLE 40MG TABLET PO SCH ×2 (09:23→22:23)
--- NOTE | 2019-06-15 09:26 | RAD REPORT ---
EXAM DESCRIPTION: RAD - Hip Left 2 View - 06/15/2019 9:14 am CLINICAL HISTORY: left hip pain COMPARISON: Hip Left 2 View dated 01/08/2019 FINDINGS: Proximal femoral nail is present on the left. No hardware loosening seen. Crescentic area of sclerosis and lucency seen in the superior aspect of the left femoral head suspicious for AVN. IMPRESSION: Left femoral head AVN suspected.
[2019-06-15] MEDS: MIDODRINE HCL 5 MG TABLET PO SCH ×2 (14:37→21:00)
[2019-06-15] MEDS: NA CHLORIDE 0.9% 1,000 ML IV SCH (14:37)
[2019-06-15] MEDS: HYDROCODONE/APAP 7.5/325 MG TAB PO PRN ×2 (14:50→22:24)
[2019-06-15] MEDS ORDERED: POTASSIUM CL SA 10 MEQ TAB PO ONE (15:00)
[2019-06-15] MEDS ORDERED: Magnesium Sulfate 2gm IVPB 2 G/50 ML BAG IV ONE (15:00)
--- NOTE | 2019-06-15 15:03 | PN ---
Date of Progress Note: 06/15/2019 Subjective: Patient was admitted with acute kidney injury secondary to prerenal. Patient on hydrati on, kidney function gradually improving. Patient has severe hypokalemia and hypomagnesemia. Patient is still obtunded. Physical Examination: Vital Signs: When I saw the patient, blood pressure 93/67, pulse of 79, afebrile. The patient had go od urine output of 4 L. Chest: Faint crackles on the left base. Heart: S1, S2. Systolic murmur. Extremities: No edema. Neuro: Nonfocal. Laboratory Data: Sodium 138, potassium 3.1, bicarb 25, BUN 21, creatinine 1.7, calcium 8.3, magnesiu m 1.3. Iron saturation is 16, ferritin 134. Current Medications: The patient is on include; Flomax, Lovenox, atorvastatin, gabapentin, Keppra, f olic acid, insulin. Assessment And Plan: 1.Acute kidney injury secondary to prerenal. Continues to recover. We will continue to monitor the patient. 2.Hypokalemia and hypomagnesemia. We will supplement. 3.Iron-deficiency anemia. Continue IV hydration. We will start the patient on gentle dose of midod rine. 4.Encephalopathy, possibly secondary to seizure. 5.Alcohol withdrawal. We will follow up with the primary. STEPHEN Voice ID: [id number] Report ID: [id number]
[2019-06-15] MEDS: TRAZODONE 50 MG TABLET PO SCH (22:24)
[2019-06-15] MEDS: ATORVASTATIN 20 MG TAB PO SCH (22:24)
[2019-06-16 05:00] LABS: Absolute Lymphocytes (CBC) 1.5 K/uL (0.7-4.9); Basophils % 0.5 % (0-1.3); Hematocrit 26.5 % (39.6-49.0); Lymphocytes % 21.3 % (15.3-44.8); MPV 8.5 fL (7.6-11.3); RBC Red Blood Cell Count 3.07 M/uL (4.33-5.43)
[2019-06-16 05:24] LABS: Magnesium 1.5 mg/dL (1.8-2.4); Potassium 4.5 mmol/L (3.5-5.1)
[2019-06-16] MEDS ORDERED: Magnesium Sulfate 2gm IVPB 2 G/50 ML BAG IV ONE ×2 (06:03→08:49)
[2019-06-16] MEDS: INSULIN -REGULAR HUMAN 50 UNIT/0.5 ML ML SQ SCH ×3 (07:30→17:03)
[2019-06-16] MEDS: NA CHLORIDE 0.9% 1,000 ML IV SCH ×2 (09:00→13:00)
[2019-06-16] MEDS: DULOXETINE 30 MG CAP PO SCH (10:49)
[2019-06-16] MEDS: THIAMINE HCL 100 MG TABLET PO SCH (10:49)
[2019-06-16] MEDS: GABAPENTIN 300 MG CAP PO SCH ×2 (10:50→15:20)
[2019-06-16] MEDS: FOLIC ACID 1 MG TABLET PO SCH (10:50)
[2019-06-16] MEDS: PANTOPRAZOLE 40MG TABLET PO SCH (10:50)
[2019-06-16] MEDS: FERROUS SULFATE 325 MG TAB PO SCH (10:50)
[2019-06-16] MEDS: MIDODRINE HCL 5 MG TABLET PO SCH ×3 (10:50→21:00)
[2019-06-16] MEDS: levETIRAcetam 500 MG TAB PO SCH (10:50)
[2019-06-16] MEDS: CYANOCOBALAMIN 1,000 MCG TAB PO SCH (10:50)
[2019-06-16] MEDS: ENOXAPARIN 30 MG/0.3 ML SQ SCH (10:51)
[2019-06-16] MEDS: INSULIN 70/30 100 UNITS/ML SQ SCH (12:01)
--- NOTE | 2019-06-16 14:09 | PN ---
Date of Progress Note: 06/16/2019 Subjective: The patient is more awake today. The patient was admitted with acute kidney injury seco ndary to prerenal, dehydration, alcoholic encephalopathy. Physical Examination: Vital Signs: When I saw the patient, blood pressure 112/81, pulse of 69. Earlier, blood pressure wa s down to the 84. Yesterday, patient was started on midodrine. Patient had significant urine output yesterday of 11 L. Today, so far undocumented of 9 L. Chest: Clear to auscultation. Heart: S1, S2. Regular. Abdomen: Soft, nontender. Extremities: No edema. Neurologic: Alert. No focal. Laboratory Data: WBC 7, H and H 8.9/26.5, platelets 212. Sodium 138, potassium 4.5, bicarb 26, BUN 22, creatinine down to 1.6, glucose 223, calcium 8.7, magnesium 1.5. Current Medications: The patient is on, include: Midodrine 5 mg t.i.d., Lovenox, atorvastatin, bob pentin, trazodone, folic acid. Assessment And Plan: 1.Acute kidney injury secondary to obstructive uropathy on polyuric state. Currently, looks to me s till on the dry side. I am going to go ahead and increase IV fluid to 100 per hour. Then, we will t ry to taper it later on depending on the progress for the patient. 2.Hypokalemia, status post supplement. 3.Hypomagnesemia. Continue supplement. 4.Alcoholic withdrawal. As by primary. MA/MODL Voice ID: [id number] Report ID: [id number]
--- NOTE | 2019-06-16 14:40 | P.PN ---
Subjective Date of Service: 06/16/19 Primary Care Provider: unknown Chief Complaint: Patient was found unresponsive by his neighbors Subjective: Improving, Doing well Physical Examination - Vital Signs Temperature: 97.6 F Blood Pressure: 112/81 Pulse: 69 Respirations: 18 Pulse Ox (%): 96 - Physical Exam General: Alert, In no apparent distress, Cooperative HEENT: Atraumatic Neck: Supple Respiratory: Clear to auscultation bilaterally, Normal air movement Cardiovascular: Normal pulses, Regular rate/rhythm Gastrointestinal: Normal bowel sounds, Soft and benign, Non-distended Neurological: Normal speech, Normal strength at 5/5 x4 extr, Normal tone, Normal affect - Studies Microbiology Data (last 24 hrs): 06/11/19 03:20 Catheterized Urine [place] Count - Final BETWEEN 10,000 & 100,000 CFU/ML 06/11/19 03:20 Catheterized Urine - Final Streptococcus Anginosus Grp 06/11/19 03:04 Blood - Blood Aerobic Blood Culture - Final Acinetobacter Lwoffi Group 06/11/19 03:04 Blood - Blood Blood Culture Gram Stain - Final 06/11/19 03:04 Blood - Blood Anaerobic Blood Culture - Final Medications List Reviewed: Yes Assessment & Plan Discharge Plan: Home Plan to discharge in: Greater than 2 days Physician Review Additional Text: Impression: Metabolic encephalopathy with acute renal injury likely volume depletion Bacteremia, 1/2 blood culture positive for Acinetobacter: Hypotension multifactorial likely from volume depletion, medication, polyuric state Alcohol abuse with possible withdrawal Bilateral hydronephrosis likely related to chronic outlet obstruction suspect BPH Seizure disorder Diabetes mellitus type 2 with DKA resolved with hyperglycemia Anemia of chronic disease Left hip pain suspect avascular necrosis. Plan: Metabolic encephalopathy with acute renal injury likely volume depletion: Encephalopathy has resolved. Patient still appears dry. Patient on IV fluids and midodrine. Patient in polyuric state due to excessive urine output. Case discussed with pulmonology. Will continue IV fluids. Will monitor output closely. Continue with nephrology recommendation. Patient does not have any benefit for skilled placement. Will need to pursue home health at discharge. Bacteremia, 1/2 blood culture positive for Acinetobacter: Patient has been afebrile for several days. White count also within normal range. Will need to treat since this is a gram-negative marjorie. Case discussed with pharmacy. Will start doxycycline. Will repeat blood culture. Will also repeat urinalysis. Hypotension multifactorial likely from volume depletion, medication, and polyuric state: Patient now off lisinopril. Continue IV fluid hydration. Pulmonology to further monitor and taper. Patient on Midodrine Bilateral hydronephrosis likely related to chronic outlet obstruction suspect BPH: Patient no longer on Flomax. Will monitor closely. Catheter in place. Urology is not available. Will continue to have catheter in place. This can be addressed as an outpatient. Alcohol abuse with possible withdrawal: Patient now off Librium. Significant agitation noted. Will provide Ativan as needed. Seizure disorder: Continue with Sameera. Case discussed with Neurology. No need for MRI at this time. Diabetes mellitus type 2 with DKA resolved with hyperglycemia: DKA has resolved. Continue to adjust basal insulin. Sliding scale in place. Anemia of chronic disease: Will monitor closely. Will start iron, B12 and thiamine supplementation. Left hip pain suspect avascular necrosis: X-ray shows suspect avascular necrosis of the hip. This can be further evaluated as an outpatient. Patient will need orthopedic evaluation. Patient may require surgery in the future. Time Spent Managing Pts Care (In Minutes): 55
[2019-06-16] MEDS: DOXYCYCLINE 100 MG CAP PO SCH (15:20)
[2019-06-16] MEDS: HYDROCODONE/APAP 7.5/325 MG TAB PO PRN (15:28)
[2019-06-16 17:37] LABS: Urine Appearance CLEAR; Urine Bilirubin NEGATIVE (NEG); Urine Blood 3+ (NEG); Urine Color YELLOW; Urine Glucose 3+ (NEG); Urine Protein 2+ (NEG); Urine Urobilinogen 0.2 mg/dL (0.2-1.0)
[2019-06-16 17:39] LABS: UR PROTEIN 77 mg/dL (<11.9)
[2019-06-16 17:43] LABS: Urine Microscopic Reflex ORDER UMIC
[2019-06-16 17:45] LABS: UR CREAT < 13.0 mg/dL (20-370)
[2019-06-16 18:16] LABS: Urine Bacteria <20 /HPF (NONE SEEN); Urine Culture Reflex Order NOT NEEDED; Urine Mucus 1+ /HPF (NONE SEEN); Urine RBC 20-50 /HPF (NONE SEEN); Urine Yeast PRESENT (NONE SEEN)
[2019-06-16] MEDS ORDERED: MAGNESIUM SULFATE 1 gm IVPB 1 GM/100 ML BAG IV ONE (21:00)
[2019-06-16] MEDS ORDERED: INSULIN GLARGINE 100 UNITS/ML SQ SCH (21:00)
[2019-06-17] MEDS: HYDROCODONE/APAP 7.5/325 MG TAB PO PRN (00:08)
[2019-06-17] MEDS: ATORVASTATIN 20 MG TAB PO SCH ×2 (00:09→20:35)
[2019-06-17] MEDS: TRAZODONE 50 MG TABLET PO SCH ×2 (00:09→20:34)
[2019-06-17] MEDS: DULOXETINE 30 MG CAP PO SCH ×3 (00:09→20:31)
[2019-06-17] MEDS: DOXYCYCLINE 100 MG CAP PO SCH ×3 (00:09→20:54)
[2019-06-17] MEDS: PANTOPRAZOLE 40MG TABLET PO SCH ×3 (00:09→20:37)
[2019-06-17] MEDS: GABAPENTIN 300 MG CAP PO SCH ×5 (00:09→20:36)
[2019-06-17] MEDS: INSULIN -REGULAR HUMAN 50 UNIT/0.5 ML ML SQ SCH ×7 (00:10→20:52)
[2019-06-17] MEDS: NA CHLORIDE 0.9% 1,000 ML IV SCH ×5 (00:20→20:31)
[2019-06-17 06:05] LABS: Absolute Lymphocytes (CBC) 1.6 K/uL (0.7-4.9); Basophils % 0.4 % (0-1.3); Hematocrit 26.9 % (39.6-49.0); Lymphocytes % 20.1 % (15.3-44.8); MPV 8.8 fL (7.6-11.3); RBC Red Blood Cell Count 3.09 M/uL (4.33-5.43)
[2019-06-17 07:06] LABS: Albumin 2.9 g/dL (3.4-5.0); Magnesium 1.5 mg/dL (1.8-2.4); Phosphorus 2.6 mg/dL (2.5-4.9); Uric Acid 1.9 mg/dL (3.5-7.2)
[2019-06-17 07:07] LABS: Thyroid Stimulating Hormone 5.19 uIU/mL (0.360-3.740)
[2019-06-17 07:09] LABS: Potassium 5.6 mmol/L (3.5-5.1)
[2019-06-17] MEDS: levETIRAcetam 500 MG TAB PO SCH (09:02)
[2019-06-17] MEDS: THIAMINE HCL 100 MG TABLET PO SCH (09:02)
[2019-06-17] MEDS: FERROUS SULFATE 325 MG TAB PO SCH (09:02)
[2019-06-17] MEDS: MIDODRINE HCL 5 MG TABLET PO SCH ×3 (09:03→20:36)
[2019-06-17] MEDS: FOLIC ACID 1 MG TABLET PO SCH (09:03)
[2019-06-17] MEDS: CYANOCOBALAMIN 1,000 MCG TAB PO SCH (09:03)
[2019-06-17] MEDS: ENOXAPARIN 30 MG/0.3 ML SQ SCH (09:03)
[2019-06-17] MEDS: INSULIN GLARGINE 100 UNITS/ML SQ SCH ×2 (09:05→20:51)
[2019-06-17] MEDS: HYDROCODONE/APAP 10/325 TAB PO PRN ×2 (09:27→20:37)
[2019-06-17] MEDS ORDERED: SOD POLYSTYREN SUL 15 GM/60 ML UCUP PO ONE (09:31)
[2019-06-17] MEDS ORDERED: ALBUTEROL 2.5 MG/3 ML NEB SOL NEB ONE (09:32)
--- NOTE | 2019-06-17 09:44 | P.PN ---
Subjective Date of Service: 06/17/19 Primary Care Provider: unknown Chief Complaint: Patient was found unresponsive by his neighbors Subjective: Doing well (Still putting out excess amounts of output.) Physical Examination - Vital Signs Temperature: 98.2 F Blood Pressure: 87/57 Pulse: 77 Respirations: 16 Pulse Ox (%): 99 - Physical Exam General: Alert, In no apparent distress, Cooperative HEENT: Atraumatic Neck: Supple Respiratory: Clear to auscultation bilaterally, Normal air movement Cardiovascular: Normal pulses, Regular rate/rhythm Gastrointestinal: Normal bowel sounds, Soft and benign, Non-distended Integumentary: No erythema, No warmth, No cyanosis Neurological: Normal speech, Normal strength at 5/5 x4 extr, Normal tone, Normal affect - Studies Microbiology Data (last 24 hrs): 06/11/19 03:20 Catheterized Urine [place] Count - Final BETWEEN 10,000 & 100,000 CFU/ML 06/11/19 03:20 Catheterized Urine - Final Streptococcus Anginosus Grp Medications List Reviewed: Yes Assessment & Plan Discharge Plan: Home Plan to discharge in: 72 Hours Physician Review Additional Text: Impression: Polyuria likely related to outlet obstruction with hyperkalemia Metabolic encephalopathy with acute renal injury likely volume depletion Bacteremia, 1/2 blood culture positive for Acinetobacter: Hypotension multifactorial likely from volume depletion, medication, polyuric state Alcohol abuse with possible withdrawal Bilateral hydronephrosis likely related to chronic outlet obstruction suspect BPH Seizure disorder Diabetes mellitus type 2 with DKA resolved with hyperglycemia Anemia of chronic disease Left hip pain suspect avascular necrosis. Plan: Polyuria likely related to outlet obstruction with hyperkalemia: Case discussed with nephrology. Nephrology to adjust IV fluids. Potassium elevated this was a repeat. Will provide Kayexalate and provide albuterol. Patient already with hyperglycemia. Will adjust basal insulin. Will change too aggressive sliding scale as well. Will transfer patient to the ICU due to polyuria and hypotension. Will need to monitor input and output closely. Will need to monitor blood pressure closely. Await further recommendations from nephrology. Metabolic encephalopathy with acute renal injury likely volume depletion: Encephalopathy has resolved. Continue as above. Await Nephrology recommendations. Will continue IV fluids. Will monitor output closely. Bacteremia, 1/2 blood culture positive for Acinetobacter: Patient started on doxycycline. Will repeat blood culture. Will also repeat urinalysis. Hypotension multifactorial likely from volume depletion, medication, and polyuric state: Continue as above Bilateral hydronephrosis likely related to chronic outlet obstruction suspect BPH: Continue as above Alcohol abuse with possible withdrawal: Patient now off Librium. Significant agitation noted. Will provide Ativan as needed. Seizure disorder: Continue with Keppra. Case discussed with Neurology. No need for MRI at this time. Diabetes mellitus type 2 with DKA resolved with hyperglycemia: DKA has resolved. Basal insulin adjusted. Continue as above. Anemia of chronic disease: Will monitor closely. Continue with supplementation. Left hip pain suspect avascular necrosis: X-ray shows suspect avascular necrosis of the hip. This can be further evaluated as an outpatient. Patient will need orthopedic evaluation. Patient may require surgery in the future. Time Spent Managing Pts Care (In Minutes): 55
[2019-06-17] MEDS: ALBUTEROL 2.5 MG/3 ML NEB SOL NEB SCH ×2 (10:45→14:00)
[2019-06-17] MEDS ORDERED: INSULIN -REGULAR HUMAN 50 UNIT/0.5 ML ML SQ ONE (11:55)
--- NOTE | 2019-06-17 12:05 | P.PN ---
Subjective Date of Service: 06/17/19 Primary Care Provider: unknown Chief Complaint: Patient was found unresponsive by his neighbors Conclusions/Impression: Subjective a 54 Y/o man with PMhx of DM, HTN, seizure disorder brought for after he found unresponsive pt found unresponsive Cr was 4.7, with acidosis and hyperglycemia Today K 6.0 with high BS insulin increased , will add calcium gluconate , And albuterol and kaeyxalate UP ~500ml/hr eill increase NS to 250ml/hr will transfer to ICU Past Medical/Surgical History Diabetic: Yes -: DM-IDDM -: Seizure -: HTN -: HLD -: COPD -: GERD -: L humerous sx with Titanium marjorie placement -: L hip and R hip sx - Family History Father Medical History: Heart disease, Other (see notes) Notes: from [place] - Social History Smoking Status: Unknown if ever smoked Alcohol use: Yes CD- Drugs: No Caffeine use: Yes general: AAOX2-3 NEck: supple, No elevated JVD hear: RRR, normal S1,2 no murmur or rub Chest: CTAB, no rlaes or wheezes Abdomen: Scaphoid, soft, NT Extremities No edema skin: multiple lesion all over the body A/P NELSON due to dehydration and obstructive uropathy resolved renal dose meds will keep graham , Urology f/u as an OP polyuria due to obstructive uropathy will increase IVF rate hyperkalmeia possibly due to dehydration and hyperglycemia treatment as above DM on insulin Hx of seizure disorder on Keppra Physical Examination - Vital Signs Temperature: 98.2 F Blood Pressure: 87/57 Pulse: 77 Respirations: 16 Pulse Ox (%): 99 - Studies Microbiology Data (last 24 hrs): 06/11/19 03:20 Catheterized Urine [place] Count - Final BETWEEN 10,000 & 100,000 CFU/ML 06/11/19 03:20 Catheterized Urine - Final Streptococcus Anginosus Grp Medications List Reviewed: Yes Assessment And Plan - Current Problems (Diagnosis) (1) Acute kidney injury Current Visit: Yes Status: Acute
[2019-06-17] MEDS ORDERED: CALCIUM GLUC 10% INJ 4.65 MEQ in NA CHLORIDE 0.9% 100 ML IV ONE (12:30)
[2019-06-17 17:15] LABS: BUN Blood Urea Nitrogen 28 mg/dL (7-18); Bicarbonate 27 mmol/L (21-32); Glucose Level 398 mg/dL (74-106); Potassium 4.1 mmol/L (3.5-5.1); Sodium Level 134 mmol/L (136-145)
[2019-06-17 17:16] LABS: Magnesium 1.1 mg/dL (1.8-2.4)
[2019-06-17] MEDS ORDERED: Magnesium Sulfate 2gm IVPB 2 G/50 ML BAG IV ONE ×2 (17:30→23:53)
[2019-06-18] MEDS: NA CHLORIDE 0.9% 1,000 ML IV SCH ×4 (00:01→12:40)
[2019-06-18 05:36] LABS: Albumin 2.8 g/dL (3.4-5.0); Magnesium 1.7 mg/dL (1.8-2.4); Phosphorus 2.9 mg/dL (2.5-4.9); Potassium 4.5 mmol/L (3.5-5.1)
[2019-06-18 05:39] LABS: Absolute Lymphocytes (CBC) 1.5 K/uL (0.7-4.9); Basophils % 0.4 % (0-1.3); Hematocrit 24.2 % (39.6-49.0); Lymphocytes % 22.4 % (15.3-44.8); MPV 8.5 fL (7.6-11.3)
[2019-06-18] MEDS: THIAMINE HCL 100 MG TABLET PO SCH (08:27)
[2019-06-18] MEDS: DULOXETINE 30 MG CAP PO SCH ×2 (08:27→20:37)
[2019-06-18] MEDS: levETIRAcetam 500 MG TAB PO SCH (08:27)
[2019-06-18] MEDS: ENOXAPARIN 30 MG/0.3 ML SQ SCH (08:27)
[2019-06-18] MEDS: MIDODRINE HCL 5 MG TABLET PO SCH ×3 (08:27→20:37)
[2019-06-18] MEDS: GABAPENTIN 300 MG CAP PO SCH ×3 (08:27→20:37)
[2019-06-18] MEDS: FERROUS SULFATE 325 MG TAB PO SCH (08:27)
[2019-06-18] MEDS: FOLIC ACID 1 MG TABLET PO SCH (08:27)
[2019-06-18] MEDS: INSULIN GLARGINE 100 UNITS/ML SQ SCH ×2 (08:28→20:36)
[2019-06-18] MEDS: INSULIN -REGULAR HUMAN 50 UNIT/0.5 ML ML SQ SCH ×4 (08:28→20:37)
[2019-06-18] MEDS: PANTOPRAZOLE 40MG TABLET PO SCH ×2 (08:28→20:38)
[2019-06-18] MEDS: DOXYCYCLINE 100 MG CAP PO SCH ×2 (08:35→20:37)
[2019-06-18] MEDS: CYANOCOBALAMIN 1,000 MCG TAB PO SCH (08:35)
--- NOTE | 2019-06-18 08:41 | P.PN ---
Subjective Date of Service: 06/18/19 Primary Care Provider: unknown Chief Complaint: Patient was found unresponsive by his neighbors Subjective: Improving, Other (Blood pressure still slightly low.) Physical Examination - Vital Signs Temperature: 97.4 F Blood Pressure: 104/69 Pulse: 80 Respirations: 17 Pulse Ox (%): 97 - Physical Exam General: Alert, In no apparent distress HEENT: Atraumatic Neck: Supple Respiratory: Clear to auscultation bilaterally, Normal air movement Cardiovascular: Normal pulses, Regular rate/rhythm Gastrointestinal: Normal bowel sounds, Soft and benign, Non-distended, No masses , No rebound, No guarding Other Physical/Emotional Findings: Input around 9000, output 11,000. - Studies Medications List Reviewed: Yes Assessment & Plan Discharge Plan: Home Plan to discharge in: Greater than 2 days Physician Review Additional Text: Impression: Polyuria likely related to outlet obstruction with hyperkalemia Metabolic encephalopathy with acute renal injury likely volume depletion Bacteremia, 1/2 blood culture positive for Acinetobacter: Hypotension multifactorial likely from volume depletion, medication, polyuric state Alcohol abuse with possible withdrawal Bilateral hydronephrosis likely related to chronic outlet obstruction suspect BPH Seizure disorder Diabetes mellitus type 2 with DKA resolved with hyperglycemia Anemia of chronic disease Left hip pain suspect avascular necrosis. Plan: Polyuria likely related to outlet obstruction with hyperkalemia: Patient still behind in total fluid intake. Will discuss with nephrology. Nephrology to adjust IV fluids. Blood sugar better control. Continue adjust insulin. Will monitor input and output closely. Await further recommendations from nephrology. Metabolic encephalopathy with acute renal injury likely volume depletion: Encephalopathy has resolved. Continue as above. Await Nephrology recommendations. Will continue IV fluids. Will monitor output closely. Bacteremia, 1/2 blood culture positive for Acinetobacter: Continue antibiotic coverage doxycycline. Will repeat blood culture. Will also repeat urinalysis. Hypotension multifactorial likely from volume depletion, medication, and polyuric state: Continue as above Bilateral hydronephrosis likely related to chronic outlet obstruction suspect BPH: Continue as above Alcohol abuse with possible withdrawal: Patient now off Librium. Significant agitation noted. Will provide Ativan as needed. Seizure disorder: Continue with Keppra. Case discussed with Neurology. No need for MRI at this time. Diabetes mellitus type 2 with DKA resolved with hyperglycemia: DKA has resolved. Basal insulin adjusted. Continue as above. Anemia of chronic disease: Will monitor closely. Continue with supplementation. Left hip pain suspect avascular necrosis: X-ray shows suspect avascular necrosis of the hip. This can be further evaluated as an outpatient. Patient will need orthopedic evaluation. Patient may require surgery in the future. Time Spent Managing Pts Care (In Minutes): 55
[2019-06-18] MEDS: HYDROCODONE/APAP 10/325 TAB PO PRN (08:48)
[2019-06-18] MEDS: TRAZODONE 50 MG TABLET PO SCH (20:37)
[2019-06-18] MEDS: ATORVASTATIN 20 MG TAB PO SCH (20:38)
--- NOTE | 2019-06-18 23:39 | PN ---
Date of Progress Note: 06/18/2019 Chief Complaint: Acute kidney injury, nonoliguric, associated with hyperkalemia. Creatinine level was 4.7. History Of Present Illness: Patient was found to have acidosis and hyperglycemia with uncontrolled diabetes. Patient was started on IV fluids, received Kayexalate, albuterol, and calcium gluconate to treat hyperkalemia. Patient was transferred to ICU. Primarily, patient was admitted after he was found unresponsive by his neighbors. He remains encephalopathic and cannot follow commands. He is awake, although he does not respond to questions. He has history of diabetes mellitus, seizure disorder, hypertension. Review of Systems: Unobtainable. Physical Examination: Lungs: Clear to auscultation bilaterally. Heart: S1, S2. No pericardial friction rub. Abdomen: Soft, benign, nontender. Extremities: No edema. Laboratory Data: Hemoglobin 8.1, WBC 6.8, platelet count is 195,000. Sodium 138, potassium 4.5, chloride 104, CO2 of 29, BUN 22, creatinine 1.4, magnesium 1.7, glucose 325. Impression And Plan: 1. Acute on chronic kidney injury. Renal function is gradually improving. 2. Hypomagnesemia. Replacement was ordered. 3. Diabetes mellitus with renal manifestation. Monitor proteinuria. 4. Encephalopathy. Per primary team. 5. Hypertension. Continue blood pressure medication. Adjust for systolic blood pressure greater than 120. 6. Resolving acute kidney injury. Avoid nephrotoxic medication. 7. History of seizure. Continue Keppra. 8. Polyuria due to obstructive uropathy. Plan is to increase IV fluids rate and monitor fluid balance. I spent total 36 min including 25 min to coordinate care plan. ANGELIA/DAVIN Voice ID: [id number] Report ID: [id number] KATHYA
[2019-06-19] MEDS: HYDROCODONE/APAP 10/325 TAB PO PRN ×2 (01:55→16:38)
[2019-06-19 05:43] LABS: Albumin 3.2 g/dL (3.4-5.0); Potassium 4.6 mmol/L (3.5-5.1)
[2019-06-19] MEDS: FERROUS SULFATE 325 MG TAB PO SCH (08:38)
[2019-06-19] MEDS: CYANOCOBALAMIN 1,000 MCG TAB PO SCH (08:38)
[2019-06-19] MEDS: INSULIN -REGULAR HUMAN 50 UNIT/0.5 ML ML SQ SCH ×4 (08:38→20:07)
[2019-06-19] MEDS: MIDODRINE HCL 5 MG TABLET PO SCH ×3 (08:38→20:07)
[2019-06-19] MEDS: levETIRAcetam 500 MG TAB PO SCH (08:38)
[2019-06-19] MEDS: FOLIC ACID 1 MG TABLET PO SCH (08:38)
[2019-06-19] MEDS: THIAMINE HCL 100 MG TABLET PO SCH (08:38)
[2019-06-19] MEDS: DOXYCYCLINE 100 MG CAP PO SCH ×2 (08:38→20:06)
[2019-06-19] MEDS: DULOXETINE 30 MG CAP PO SCH ×2 (08:38→20:05)
[2019-06-19] MEDS: PANTOPRAZOLE 40MG TABLET PO SCH ×2 (08:38→20:06)
[2019-06-19] MEDS: INSULIN GLARGINE 100 UNITS/ML SQ SCH ×2 (08:39→20:08)
[2019-06-19] MEDS: ENOXAPARIN 30 MG/0.3 ML SQ SCH (08:39)
[2019-06-19] MEDS: GABAPENTIN 300 MG CAP PO SCH ×3 (08:39→20:06)
--- NOTE | 2019-06-19 09:58 | P.PN ---
Subjective Date of Service: 06/19/19 Primary Care Provider: unknown Chief Complaint: Patient was found unresponsive by his neighbors Subjective: Improving, Doing well (Yesterday total input 6682, total output 7600. Patient pulled out femoral catheter and IV. Patient doing well. Blood pressure stable.) Physical Examination - Vital Signs Temperature: 97 F Blood Pressure: 119/73 Pulse: 69 Respirations: 12 Pulse Ox (%): 97 - Physical Exam General: Alert, In no apparent distress, Oriented x3, Cooperative HEENT: Atraumatic Neck: Supple Respiratory: Clear to auscultation bilaterally, Normal air movement Cardiovascular: Normal pulses, Regular rate/rhythm Gastrointestinal: Normal bowel sounds, Soft and benign, Non-distended, No masses , No rebound, No guarding Neurological: Normal speech, Normal strength at 5/5 x4 extr, Normal tone, Normal affect Other Physical/Emotional Findings: Input around 9000, output 11,000. - Studies Medications List Reviewed: Yes Assessment & Plan Discharge Plan: Home Plan to discharge in: 48 Hours Physician Review Additional Text: Impression: Polyuria likely related to outlet obstruction with hyperkalemia Metabolic encephalopathy with acute renal injury likely volume depletion Bacteremia, 1/2 blood culture positive for Acinetobacter: Hypotension multifactorial likely from volume depletion, medication, polyuric state Alcohol abuse with possible withdrawal Bilateral hydronephrosis likely related to chronic outlet obstruction suspect BPH Seizure disorder Diabetes mellitus type 2 with DKA resolved with hyperglycemia Anemia of chronic disease Left hip pain suspect avascular necrosis. Plan: Polyuria likely related to outlet obstruction with hyperkalemia: Urine input and output near equal. Patient still behind in fluids. Patient pulled out IV yesterday including femoral line. Will continue to manage his oral intake with output. Will discuss with nephrology. Possible transfer to the floor and monitoring input output closely. Recheck urinalysis. Continue antibiotic therapy. Will discuss further with nephrology about plan of care. Possible discharge in the next 24-48 hr with stability in his input/output. I will turn the service over to the hospitalist team tomorrow. I will go the plan of care with him. Metabolic encephalopathy with acute renal injury likely volume depletion: Encephalopathy has resolved. Continue as above. Await Nephrology recommendations. Continue as above Bacteremia, 1/2 blood culture positive for Acinetobacter: Continue antibiotic coverage doxycycline. Repeat blood culture so far negative. Will recheck urinalysis.. Hypotension multifactorial likely from volume depletion, medication, and polyuric state: Continue as above Bilateral hydronephrosis likely related to chronic outlet obstruction suspect BPH: Continue midodrine. Continue with close monitoring of input/output. Alcohol abuse with possible withdrawal: No significant agitation noted at this time. Will monitor closely. Seizure disorder: Continue with Keppra. Case discussed with Neurology. No need for MRI at this time. Diabetes mellitus type 2 with DKA resolved with hyperglycemia: DKA has resolved. Blood sugar better control. Continue to adjust basal insulin. Anemia of chronic disease: Will monitor closely. Continue with supplementation. Left hip pain suspect avascular necrosis: X-ray shows suspect avascular necrosis of the hip. This can be further evaluated as an outpatient. Patient will need orthopedic evaluation. Patient may require surgery in the future. Will continue to provide medication for pain. Time Spent Managing Pts Care (In Minutes): 55
[2019-06-19 13:51] LABS: Urine Appearance CLOUDY; Urine Bilirubin NEGATIVE (NEG); Urine Blood 3+ (NEG); Urine Color YELLOW; Urine Glucose 3+ (NEG); Urine Protein 2+ (NEG); Urine Specific Gravity 1.015 (1.005-1.030); Urine Urobilinogen 0.2 mg/dL (0.2-1.0); Urine pH 6.5 (5.0-7.0)
[2019-06-19 13:58] LABS: Urine Bacteria NONE SEEN /HPF (NONE SEEN); Urine Culture Reflex Order REFLEXED; Urine RBC >50 /HPF (NONE SEEN); Urine Yeast PRESENT (NONE SEEN); Urine Yeast with Hyphae PRESENT
[2019-06-19] MEDS ORDERED: TAMSULOSIN 0.4 MG SR CAP PO SCH (19:17)
[2019-06-19] MEDS: ATORVASTATIN 20 MG TAB PO SCH (20:05)
[2019-06-19 20:58] VITALS: TEMP 98
[2019-06-19 20:59] VITALS: BP 95/57
[2019-06-19] MEDS: TRAZODONE 50 MG TABLET PO SCH (21:00)
--- NOTE | 2019-06-19 21:47 | P.PN ---
Date of Service: 06/19/19 pt wants to leave AMA . counselling done about still urine retention but eager to leave
[2019-06-19 22:18] VITALS: O2SAT 100
--- NOTE | 2019-06-19 22:40 | PN ---
Date of Progress Note: 06/19/2019 Chief Complaint: Obstructive uropathy, acute on chronic kidney injury. Subjective: Patient has a Keene catheter placed here and has polyuria postobstructive and is on electrolyte replacement protocol. The patient primarily was found to have hyperkalemia, which resolved because he was treated with Kayexalate and after renal function stabilized and treatment of Kayexalate was administered with calcium gluconate to stabilize potassium, level improved. Patient remains in ICU. He has history of diabetes mellitus, seizure disorder, and hypertension. He is somewhat confused. Cannot provide review of systems. Physical Examination: Lungs: Clear to auscultation bilaterally. Heart: S1, S2. Abdomen: Soft, benign. Extremities: No edema. Laboratory Data: Hemoglobin 8.9, WBC 6.8, platelet count is 195,000. Chemistry showed sodium 137, potassium 4.6, chloride 103, CO2 of 29, BUN 24, creatinine 1.41, glucose 194, calcium 8.8, phosphorus 3.0. Impression And Plan: 1. Acute on chronic kidney injury, postobstructive diuresis. Potassium level remains within normal limits. Plan is to start Flomax and attempts will be made to discontinue Keene catheter and to monitor urine output and bladder scan. Patient although may need urology consultation. 2. History of seizure. Continue Keppra. 3. Polyuria due to obstructive uropathy. Continue intravenous fluids. Adjust fluid rate accordingly. 4. Diabetes mellitus with renal manifestation. Monitor proteinuria. 5. Hypomagnesemia. Replacement was ordered. 6. Hyperkalemia, resolved. Potassium level within normal limits. I spent total 36 min including 26 min to coordinate care plan. ANGELIA/DAVIN Voice ID: [id number] Report ID: [id number] KATHYA
--- NOTE | 2019-06-20 05:16 | P.DS ---
Admission Date: 06/11/19 Discharge Date: 06/19/19 Primary Care Provider: unknown Disposition: AMA-LEFT AGAINST MEDICAL ADVIC Discharge Condition: SERIOUS Reason for Admission: Patient was found unresponsive by his neighbors Vital Signs/Physical Exam: Temp Pulse Resp BP Pulse Ox 98.0 F 75 18 95/57 L 95 06/19/19 20:00 06/19/19 20:58 06/19/19 20:58 06/19/19 20:58 06/19/19 20:58 Other Physical/Emotional Findings: Input around 9000, output 11,000. Laboratory Data at Discharge: WBC 6.8 K/uL (4.3-10.9) D 06/18/19 05:04 Hgb 8.1 g/dL (13.6-17.9) L 06/18/19 05:04 Hct 24.2 % (39.6-49.0) L 06/18/19 05:04 Plt Count 195 K/uL (152-406) D 06/18/19 05:04 PT 13.3 SECONDS (9.5-12.5) H 06/11/19 03:04 INR 1.13 06/11/19 03:04 APTT 28.7 SECONDS (24.3-36.9) 06/11/19 03:04 Sodium 137 mmol/L (136-145) 06/19/19 05:12 Potassium 4.6 mmol/L (3.5-5.1) 06/19/19 05:12 BUN 24 mg/dL (7-18) H 06/19/19 05:12 Creatinine 1.41 mg/dL (0.55-1.3) H 06/19/19 05:12 Glucose 194 mg/dL (74-106) H 06/19/19 05:12 Uric Acid 1.9 mg/dL (3.5-7.2) L 06/17/19 05:25 Phosphorus 3.0 mg/dL (2.5-4.9) 06/19/19 05:12 Magnesium 1.7 mg/dL (1.8-2.4) L D 06/18/19 05:04 Total Bilirubin 0.5 mg/dL (0.2-1.0) 06/12/19 05:39 AST 14 U/L (15-37) L 06/12/19 05:39 ALT 14 U/L (12-78) 06/12/19 05:39 Alkaline Phosphatase 145 U/L (45-117) H 06/12/19 05:39 Triglycerides 129 mg/dL (<150) 06/12/19 05:39 Cholesterol 158 mg/dL (<200) 06/12/19 05:39 HDL Cholesterol 54 mg/dL (40-60) 06/12/19 05:39 Cholesterol/HDL Ratio 2.93 06/12/19 05:39 Amylase 47 U/L (25-115) 06/11/19 03:04 Lipase 38 U/L (73-393) L 06/11/19 03:04 Home Medications: Atorvastatin Calcium [Lipitor] 20 mg PO BEDTIME 06/12/19 Duloxetine HCl [Cymbalta] 60 mg PO BID 06/12/19 Fenofibrate [Tricor] 160 mg PO DAILY 06/12/19 Folic Acid 1 mg PO DAILY 06/12/19 Gabapentin 600 mg PO TID 06/12/19 Levetiracetam [Keppra] 1,000 mg PO DAILY 06/12/19 Lisinopril [Zestril] 20 mg PO DAILY 06/12/19 Metformin HCl [Glucophage] 1,000 mg PO BIDAC 06/12/19 Pantoprazole Sodium [Protonix] 40 mg PO DAILY 06/12/19 Trazodone [Desyrel] 100 mg PO BEDTIME 06/12/19
== END 2019-06-19 21:57 | disposition left against medical advice (07) | DRG 682 ==
LOC: ER 02:38 → ERHOLD 07:31 → 3RD-ICU 11:39 → 4TH 06-15 16:23 → 3RD-ICU 06-17 12:15 → 2ND 06-19 15:45
PROVIDERS: ADMIT Hospitalist; ATTEND Family Medicine
PROC: 009U3ZX Drainage of Spinal Canal, Percutaneous Approach, Diagnostic (ICD-10-PCS; principal; 2019-06-11)
PROC: 06HY33Z Insertion of Infusion Device into Lower Vein, Percutaneous Approach (ICD-10-PCS; 2019-06-11)
DX: N17.9 Acute kidney failure, unspecified (principal); E11.11 Type 2 diabetes mellitus with ketoacidosis with coma; L02.413 Cutaneous abscess of right upper limb; R64 Cachexia; Z68.1 Body mass index [BMI] 19.9 or less, adult; F10.231 Alcohol dependence with withdrawal delirium; F10.259 Alcohol dependence with alcohol-induced psychotic disorder, unspecified; R78.81 Bacteremia; N13.39 Other hydronephrosis; E83.42 Hypomagnesemia; R33.9 Retention of urine, unspecified; Z79.899 Other long term (current) drug therapy; J44.9 Chronic obstructive pulmonary disease, unspecified; K21.9 Gastro-esophageal reflux disease without esophagitis; I10 Essential (primary) hypertension; Z79.4 Long term (current) use of insulin; Z96.698 Presence of other orthopedic joint implants; E86.0 Dehydration; E87.6 Hypokalemia; R79.89 Other specified abnormal findings of blood chemistry; R56.9 Unspecified convulsions; D63.8 Anemia in other chronic diseases classified elsewhere; D50.9 Iron deficiency anemia, unspecified; E87.5 Hyperkalemia; M25.552 Pain in left hip; G31.2 Degeneration of nervous system due to alcohol
CPT/HCPCS: 36415; 62270; 70450; 71045; 72125; 74176; 76770; 80048; 80053; 80061; 80069; 80076; 80177; 80307; 80320; 81001; 81003; 81015; 82010; 82140; 82150; 82533; 82550; 82553; 82570; 82607; 82728; 82805; 82945; 82947; 83036; 83540; 83605; 83690; 83735; 83930; 83935; 84100; 84132; 84145; 84156; 84157; 84300; 84439; 84443; 84466; 84484; 84550; 85014; 85018; 85025; 85610; 85730; 86403; 87040; 87070; 87077; 87086; 87088; 87186; 87205; 89050; 93005; 94640; 96361; 96365; 96366; 96367; 96368; 96375; 97112; 97116; 97161; 97530; 99285; C9113; J0610; J0696; J1650; J1815; J1953; J2270; J3411; J3475; J7030; J7799

== ENCOUNTER 2019-06-20 01:02 | Inpatient (IN) | payer OTHER ==
--- OUTSIDE RECORDS SUMMARY | 2019-06-20 01:09 | XMS REPORT ---
:1965 [facility] Address [address] [place] [address] Care Team Providers Name Role Phone Unavailable [...] MHSW [id number] 00:28:00 00:28:00 2018-05-12 2018-05-12 Outpatient [facility] [id number] 00:00:00 00:00:00 2018-04-13 2018-04-13 Outpatient [facility] [id number] 00:00:00 00:00:00 2018-02-23 2018-02-23 Outpatient [facility] [id number] 00:00:00 00:00:00 2018-02-19 2018-02-19 Outpatient [facility] [id number] 00:00:00 00:00:00 2018-02-16 2018-02-16 Outpatient [facility] [id number] 00:00:00 00:00:00 2018-01-25 2018-01-25 Outpatient [facility] [id number] 00:00:00 00:00:00 2018-01-22 2018-01-22 Outpatient [facility] [id number] 15:47:04 15:47:04 2018-01-20 2018-01-20 Outpatient [facility] [id number] 00:00:00 00:00:00 2018-01-19 2018-01-19 Outpatient [facility] [id number] 15:13:11 15:13:11 2018-01-19 2018-01-19 Outpatient [facility] [id number] 00:00:00 00:00:00 2017-12-17 2017-12-17 Outpatient [facility] [id number] 00:00:00 00:00:00 2017-11-10 2017-11-10 Outpatient [facility] [id number] 00:00:00 00:00:00 2017-10-29 2017-10-29 Outpatient [facility] [id number] 00:00:00 00:00:00 2017-10-06 2017-10-06 Outpatient [facility] [id number] 00:00:00 00:00:00 2017-09-15 2017-09-15 Outpatient [facility] [id number] 09:41:29 09:41:29 2017-08-27 2017-08-27 [facility] [id number] 08:29:31 08:29:31 2017-08-26 2017-08-26 Outpatient [facility] [id number] 00:00:00 00:00:00 2017-08-21 2017-08-21 Outpatient [facility] [id number] 13:11:02 13:11:02 2017-08-17 2017-08-17 Outpatient [facility] [id number] 00:00:00 00:00:00 2017-08-13 2017-08-13 Outpatient [facility] [id number] 00:00:00 00:00:00 2017-07-10 2017-07-10 Outpatient [facility] [id number] 11:10:51 11:10:51 2017-07-10 2017-07-10 Outpatient [facility] [id number] 10:58:18 10:58:18 2017-07-10 2017-07-10 Outpatient [facility] [id number] 10:27:13 10:27:13 2017-07-09 2017-07-09 Outpatient [facility] [id number] 00:00:00 00:00:00 2017-07-08 2017-07-08 Outpatient [facility] [id number] 09:18:37 09:18:37 2017-07-08 2017-07-08 Outpatient [facility] [id number] 00:00:00 00:00:00 2017-07-08 2017-07-08 Outpatient [facility] [id number] 00:00:00 00:00:00 2017-07-08 2017-07-08 Outpatient [facility] [id number] 00:00:00 00:00:00 2017-06-30 2017-06-30 Outpatient [facility] [id number] 00:00:00 00:00:00 2017-06-29 2017-06-29 Outpatient [facility] [id number] 00:00:00 00:00:00 2017-06-18 2017-06-18 Outpatient [facility] [id number] 00:00:00 00:00:00 2017-05-07 2017-05-07 Outpatient [facility] [id number] 00:00:00 00:00:00 2017-04-21 2017-04-21 Outpatient [facility] [id number] 10:37:11 10:37:11 2017-04-21 2017-04-21 Outpatient [facility] [id number] 10:22:34 10:22:34 2017-04-21 2017-04-21 Outpatient [facility] [id number] 00:00:00 00:00:00 2017-04-14 2017-04-14 Outpatient [facility] [id number] 00:00:00 00:00:00 2017-04-14 2017-04-14 Outpatient [facility] [id number] 00:00:00 00:00:00 2017-02-23 2017-02-23 Outpatient [facility] [id number] 00:00:00 00:00:00 2017-02-18 2017-02-18 Outpatient [facility] [id number] 00:00:00 00:00:00 2017-02-18 2017-02-18 Outpatient [facility] [id number] 00:00:00 00:00:00 2017-02-11 2017-02-11 Outpatient [facility] [id number] 10:36:34 10:36:34 2017-02-03 2017-02-03 Outpatient [facility] [id number] 00:00:00 00:00:00 2017-01-29 2017-01-29 Outpatient [facility] [id number] 00:00:00 00:00:00 2017-01-20 2017-01-20 Outpatient [facility] [id number] 00:00:00 00:00:00 2017-01-06 2017-01-06 Outpatient [facility] [id number] 00:00:00 00:00:00 2016-12-29 2016-12-29 Outpatient [facility] [id number] 00:00:00 00:00:00 2016-12-22 2016-12-22 Outpatient [facility] [id number] 00:00:00 00:00:00 2016-12-05 2016-12-05 Outpatient [facility] [id number] 00:00:00 00:00:00 2016-11-25 2016-11-25 Outpatient [facility] [id number] 00:00:00 00:00:00 2016-11-07 2016-11-07 Outpatient [facility] [id number] 00:00:00 00:00:00 2016-10-22 2016-10-22 Outpatient [facility] [id number] 00:00:00 00:00:00 2016-10-22 2016-10-22 Outpatient [facility] [id number] 00:00:00 00:00:00 2016-10-14 2016-10-14 Outpatient [facility] [id number] 00:00:00 00:00:00 2016-10-14 2016-10-14 Outpatient [facility] [id number] 00:00:00 00:00:00 2016-10-14 2016-10-14 Outpatient [facility] [id number] 00:00:00 00:00:00 2016-10-13 2016-10-13 Outpatient [facility] [id number] 00:00:00 00:00:00 2016-10-06 2016-10-06 Outpatient [facility] [id number] 00:00:00 00:00:00 2016-09-26 2016-09-26 Outpatient [facility] [id number] 13:05:03 13:05:03 2016-09-26 2016-09-26 Outpatient [facility] [id number] 11:08:45 11:08:45 2016-09-26 2016-09-26 Outpatient [facility] [id number] 00:00:00 00:00:00 2016-09-23 2016-09-23 Outpatient [facility] [id number] 08:22:53 08:22:53 2016-09-22 2016-09-22 Outpatient [facility] [id number] 00:00:00 00:00:00 2016-09-02 2016-09-02 Outpatient [facility] [id number] 10:13:54 10:13:54 2016-09-02 2016-09-02 Outpatient [facility] [id number] 09:14:14 09:14:14 2016-09-01 2016-09-01 Outpatient [facility] [id number] 00:00:00 00:00:00 2016-08-27 2016-08-27 Outpatient [facility] [id number] 12:05:53 12:05:53 2016-08-27 2016-08-27 Outpatient [facility] [id number] 00:00:00 00:00:00 2016-08-06 2016-08-06 Outpatient [facility] [id number] 09:30:09 09:30:09 2016-08-05 2016-08-05 Outpatient [facility] [id number] 07:45:01 07:45:01 2016-08-05 2016-08-05 Outpatient [facility] [id number] 07:31:35 07:31:35 2016-08-05 2016-08-05 Outpatient [facility] [id number] 07:03:38 07:03:38 2016-08-05 2016-08-05 Outpatient [facility] [id number] 00:00:00 00:00:00 2016-07-30 2016-07-30 Outpatient [facility] [id number] 08:54:41 08:54:41 2016-07-30 2016-07-30 Outpatient [facility] [id number] 08:31:03 08:31:03 2016-07-30 2016-07-30 Outpatient [facility] [id number] 00:00:00 00:00:00 2016-07-04 2016-07-04 Outpatient [facility] [id number] 13:13:54 13:13:54 2016-06-18 2016-06-18 Emergency [facility] [id number] 06:01:16 06:01:16 2016-06-18 2016-06-18 Emergency [facility] [id number] 03:35:11 03:35:11 2016-06-12 2016-06-12 Outpatient [facility] [id number] 15:43:01 15:43:01 2016-06-10 2016-06-10 Outpatient [facility] [id number] 15:07:17 15:07:17 2016-06-03 2016-06-03 Emergency [facility] [id number] 22:18:53 22:18:53 2016-06-03 2016-06-03 Emergency [facility] [id number] 21:25:09 21:25:09 2016-06-03 2016-06-03 Outpatient [facility] [id number] 13:20:06 13:20:06 2016-04-24 2016-04-24 Outpatient [facility] [id number] 15:07:56 15:07:56 2016-04-01 2016-04-01 Outpatient [facility] [id number] 00:00:00 00:00:00 2016-03-19 2016-03-19 Outpatient [facility] [id number] 09:28:43 09:28:43 2016-03-17 2016-03-17 Outpatient [facility] [id number] 14:23:13 14:23:13 2016-03-17 2016-03-17 Outpatient [facility] [id number] 11:07:20 11:07:20 2016-03-17 2016-03-17 Outpatient [facility] [id number] 10:16:12 10:16:12 2016-03-11 2016-03-11 Outpatient [facility] [id number] 11:14:32 11:14:32 2016-02-18 2016-02-18 Outpatient [facility] [id number] 10:29:58 10:29:58 2016-02-12 2016-02-12 Outpatient [facility] [id number] 11:32:37 11:32:37 2016-02-12 2016-02-12 Outpatient [facility] [id number] 10:50:02 10:50:02 2016-02-08 2016-02-08 Outpatient [facility] [id number] 09:42:08 09:42:08 Results Test Description Test Time [...] to the main Lab for analysis. POC [id number] 07:41:17 Test Item Value Reference Range Comments Glucose POC (test 268 mg/dL 70-115 Notify RN or MDIf you consider code=Glucose POC) your patient critically ill, the Eliza-Accu Check Infrom II meter should not be used for Glucose determination. Draw a venous Glucose and send to the main Lab for analysis. POC [id number] 20:06:15 Test Item Value Reference Range Comments Glucose POC (test 259 mg/dL 70-115 If you consider your patient code=Glucose POC) critically ill, the Eliza-Accu Check Infrom II meter should not be used for Glucose determination. Draw a venous Glucose and send to the main Lab for analysis. POC [id number] 16:24:53 Test Item Value Reference Range Comments Glucose POC (test 171 mg/dL 70-115 If you consider your patient code=Glucose POC) critically ill, the Eliza-Accu Check Infrom II meter should not be used for Glucose determination. Draw a venous Glucose and send to the main Lab for analysis. Troponin [id number] 13:20:34 Test Item Value Reference Range Comments [...] a diagnosis of chronic myocardial injury. Creatine [id number] 13:19:47 Test Item Value Reference Range Comments CK (test code=CK) 138 U/L 39-308 Creatine Kinase MB [id number] 13:18:50 Test Item Value Reference Range Comments CKMB (test code=CKMB) 4.8 ng/mL 0.0-4.9 Creatine Kinase MB [id number] 13:18:50 Test Item Value Reference Range Comments CKMB (test code=CKMB) 4.8 ng/mL 0.0-4.9 CKMB % (test code=CKMB %) 3.5 % 0.0-3.4 Drugs of Abuse Urine [id number] 13:05:26 Test Item Value Reference Range Comments [...] (test Negative Negative code=Cannabinoid Screen Ur) POC [id number] 11:32:18 Test Item Value Reference Range Comments Glucose POC (test 296 mg/dL 70-115 If you consider your patient code=Glucose POC) critically ill, the Eliza-Accu Check Infrom II meter should not be used for Glucose determination. Draw a venous Glucose and send to the main Lab for analysis. Thyroid Stimulating Mpzikvz4319-84-32 07:33:08 Test Item Value Reference Range Comments TSH (test code=TSH) 1.020 mIU/mL 0.270-4.200 Hemoglobin [id number] 07:32:52 Test Item Value Reference Range Comments Hemoglobin A1c (test 11.0 % 4.8-5.9 Non Diabetic 4.8-5.9%Diabetic code=Hemoglobin A1c) <7.0% Lipid [id number] 07:27:53 Test Item Value Reference Range Comments Cholesterol Total (test 156 mg/dL 0-200 RISK OF HEART code=Cholesterol Total) DISEASEPublished by [place] [employer] Analyte Optimal Borderline Increased RiskCHOL [...] when Triglyceride is greater than 400. Magnesium [id number] 07:27:53 Test Item Value Reference Range Comments Magnesium Level (test code=Magnesium Level) 1.5 mg/dL 1.7-2.5 Phosphorus [id number] 07:27:53 Test Item Value Reference Range Comments Phosphorus Level (test code=Phosphorus Level) 2.80 mg/dL 2.70-4.50 Comprehensive Metabolic [id number] 07:27:52 Test Item Value Reference Range Comments [...] (test code=A/G Ratio) 1.4 ratio Comprehensive Metabolic Fiqai1801-05-99 07:27:52 Test Item Value Reference Range Comments [...] is not provided, and the patient is -[place], multiply by 1.212. If sex is not [...] the National Kidney Foundation, http://nkdep.nih.gov Comprehensive Metabolic [id number] 07:27:52 Test Item Value Reference Range Comments [...] is not provided, and the patient is -[place], multiply by 1.212. If sex is not [...] is not provided, and the patient is -[place], multiply by 1.212. If sex is not [...] by the National Kidney Foundation, http://nkdep.nih.gov POC [id number] 07:20:10 Test Item Value Reference Range Comments Glucose POC (test 225 mg/dL 70-115 If you consider your patient code=Glucose POC) critically ill, the Eliza-Accu Check Infrom II meter should not be used for Glucose determination. Draw a venous Glucose and send to the main Lab for analysis. Creatine [id number] 07:19:03 Test Item Value Reference Range Comments CK (test code=CK) 119 U/L 39-308 Troponin [id number] 07:19:03 Test Item Value Reference Range Comments [...] of chronic myocardial injury. Creatine Kinase MB bccpshdl3015-29-46 07:17:15 Test Item Value Reference Range Comments CKMB (test code=CKMB) 3.8 ng/mL 0.0-4.9 Creatine Kinase MB pzitlzvx5484-58-27 07:17:15 Test Item Value Reference Range Comments CKMB (test code=CKMB) 3.8 ng/mL 0.0-4.9 CKMB % (test code=CKMB %) 3.2 % 0.0-3.4 Complete Blood Count without [id number] 06:59:02 Test Item Value Reference Range Comments [...] x10 IPF (test code=IPF) 0 % POC [id number] 06:12:19 Test Item Value Reference Range Comments Glucose POC (test 267 mg/dL 70-115 If you consider your patient code=Glucose POC) critically ill, the Eliza-Accu Check Infrom II meter should not be used for Glucose determination. Draw a venous Glucose and send to the main Lab for analysis. POC [id number] 05:00:38 Test Item Value Reference Range Comments Glucose POC (test 61 mg/dL 70-115 If you consider your patient code=Glucose POC) critically ill, the Eliza-Accu Check Infrom II meter should not be used for Glucose determination. Draw a venous Glucose and send to the main Lab for analysis. POC [id number] 04:01:42 Test Item Value Reference Range Comments Glucose POC (test 151 mg/dL 70-115 Notify RN or MDIf you consider code=Glucose POC) your patient critically ill, the Eliza-Accu Check Infrom II meter should not be used for Glucose determination. Draw a venous Glucose and send to the main Lab for analysis. POC [id number] 03:15:14 Test Item Value Reference Range Comments [...] 1.9 mmol/L 0.5-1.9 Acid, Plasma (Venous)) POC [id number] 02:08:55 Test Item Value Reference Range Comments [...] Site (test code=Draw Site) Brachial. R POC Ljxwhkr0791-06-31 01:25:51 Test Item Value Reference Range Comments Glucose POC (test 366 mg/dL 70-115 If you consider your patient code=Glucose POC) critically ill, the Eliza-Accu Check Infrom II meter should not be used for Glucose determination. Draw a venous Glucose and send to the main Lab for analysis. [id number] 22:30:52 Test Item Value Reference Range Comments Acetone (Ketones) (test code=Acetone (Ketones)) Negative Negative Lot # (test code=Lot #) [id number] Expiration Dt (test code=Expiration Dt) [id number] Neg Control (test code=Neg Control) Negative Pos Control (test code=Pos Control) Positive Urinalysis with Culture, if [id number] 22:29:03 Test Item Value Reference Range Comments [...] by rule Micro Ind?) GL_SJM_UA_MICRO_IND Comprehensive Metabolic [id number] 22:13:44 Test Item Value Reference Range Comments [...] is not provided, and the patient is -[place], multiply by 1.212. If sex is not [...] is not provided, and the patient is -[place], multiply by 1.212. If sex is not [...] by the National Kidney Foundation, http://nkdep.nih.gov Alcohol Lxqwz9857-10-79 22:02:32 Test Item Value Reference Range Comments Ethanol Level (test 0.30 g/dL 0.00-0.01 Critical results called to RN, code=Ethanol Level) Cathy Hardy at 10/02/2018 22:01:54 CDT_ by RS_. Read back and verified? _yesIntoxicated 0.080 g/dL or more Ethanol Inst (test 302 code=Ethanol Inst) Magnesium [id number] 21:53:52 Test Item Value Reference Range Comments Magnesium Level (test code=Magnesium Level) 1.6 mg/dL 1.7-2.5 Phosphorus [id number] 21:53:52 Test Item Value Reference Range Comments Phosphorus Level (test code=Phosphorus Level) 4.40 mg/dL 2.70-4.50 Automated [id number] 21:32:53 Test Item Value Reference Range Comments Neutro Auto (test code=Neutro Auto) 57.7 % 36.0-70.0 Lymph Auto (test code=Lymph Auto) 28.4 % 12.0-44.0 Powell Auto (test code=Powell Auto) 10.8 % 0.0-11.0 Eos, Auto (test code=Eos, Auto) 1.4 % 0.0-7.0 Basophil Auto (test code=Basophil Auto) 0.7 % 0.0-2.0 Neutro Absolute (test code=Neutro Absolute) 5.5 x10 1.6-7.4 Lymph Absolute (test code=Lymph Absolute) 2.69 x10 .50-4.60 Powell Absolute (test code=Powell Absolute) 1.02 x10 .00-1.20 Eos Absolute (test code=Eos Absolute) 0.13 x10 0.00-0.74 Baso Absolute (test code=Baso Absolute) 0.07 x10 0.00-0.21 IG [id number] 21:32:53 Test Item Value Reference Range Comments IG (test code=IG) 1.0 % 0.0-5.0 IG Abs (test code=IG Abs) 0 x10 Complete Blood Count with Utsmkbzgrnua1624-07-14 21:32:52 Test Item Value Reference Range Comments [...] x10 IPF (test code=IPF) 0 % POC [id number] 20:55:21 Test Item Value Reference Range Comments [...] (test code=Draw Site) Radial. R COMPREHENSIVE METABOLIC [id number] 22:26:00 Test Item Value Reference Range Comments [...] ALKALINE PHOSPHATASE (test 255 UNITS/L 38-126 code=ALKP) [id number] 22:26:00 Test Item Value Reference Range Comments ALCOHOL (test code=ALC) 282.0 MG/DL <10 CALLED TO TRUDY Ortiz & READBACK ON 08/25/18 AT 2226 Elizabeth Madrigal CBC W/O [id number] 22:00:00 Test Item Value Reference Range Comments [...] code=NRBC#) 0.00 K/mm3 0.0-0.1 - XR CHEST [id number] 21:09:00 Patient Name: PRIYANKA EVANGELISTA Unit No: [id number] EXAMS: CPT CODE: [id number] XR CHEST 1V 50974 Location of dictation: B2 Portable chest one [...] Barney Orig Print D/T: S: 08/25/2018 (2112) [facility] NAME: PRIYANKA EVANGELISTA [id number] [address] PHYS: [place] [address] : 1965 AGE: 53 SEX: M LOC: Z.ERS PHONE #: [phone] EXAM DATE: 08/25/2018 STATUS: PRE ER FAX #: [phone] RADIOLOGY NO: PAGE 1 Signed ReportGLUCOSE BEDSIDE [id number] 20:44:00 Test Item Value Reference Range Comments GLUCOSE BEDSIDE TESTING (test > 600 MG/DL 60-99 Notified Nurse~ code=GLUBED) XR Ribs w/ PA Chest Dvzivfrss6707-11-96 01:15:17Patient: PRIYANKA EVANGELISTA Date/Time07/20/2018 00: 30 CDTReason for ExamInjuryReportLOCATION: [id number]: 53-year-old male who presents with rib pain.COMMENT:A [...] LSigned (Electronic Signature): 07/20/2018 1:15 amGLUCOSE BEDSIDE [id number] 16:12:00 Test Item Value Reference Range Comments GLUCOSE BEDSIDE TESTING (test code=GLUBED) 271 MG/DL 60-99 [id number] 14:56:00 Test Item Value Reference Range Comments ALCOHOL (test code=ALC) 296.0 MG/DL <10 CALLED TO FANTASMA& READBACK ON 06/10/18 AT 1456 BY Romina Valdes HEPATIC FUNCTION [id number] 14:54:00 Test Item Value Reference Range Comments TOTAL PROTEIN (test code=PROT) 8.9 G/DL 6.2-7.6 ALBUMIN (test code=ALB) 5.2 G/DL 3.5-5.0 BILIRUBIN TOTAL (test code=BILT) 0.7 MG/DL 0.2-1.3 BILIRUBIN DIRECT (test code=BILD) 0.0 MG/DL 0.0-0.3 SGOT/AST (test code=AST) 48 UNITS/L 17-59 SGPT/ALT (test code=ALT) 39 UNITS/L 21-72 ALKALINE PHOSPHATASE (test code=ALKP) 317 UNITS/L 38-126 DRUGS OF ABUSE SCREEN [id number] 14:16:00 Test Item Value Reference Range Comments [...] off Value: 25 ng/mL code=PHENCU) BASIC METABOLIC [id number] 14:05:00 Test Item Value Reference Range Comments [...] CALCIUM (test code=CA) 9.5 MG/DL 8.4-10.2 URINALYSIS [id number] 14:00:00 Test Item Value Reference Range Comments [...] NO CULTURE Culture Chk code=UACULT) Criteria URINALYSIS [id number] 13:59:00 Test Item Value Reference Range Comments [...] NEEDED? (test code=UACULT) Criteria Culture Chk PROTHROMBIN [id number] 13:41:00 Test Item Value Reference Range Comments [...] systemic embolism. 3.0 - 4.5 CBC W/AUTO [id number] 13:30:00 Test Item Value Reference Range Comments [...] (test code=NRBC#) 0.00 K/mm3 0.0-0.1 GLUCOSE BEDSIDE [id number] 13:01:00 Test Item Value Reference Range Comments GLUCOSE BEDSIDE TESTING (test code=GLUBED) 427 MG/DL 60-99 Notified Nurse~ CHEMISTRY 8 [id number] 13:00:00 Test Item Value Reference Range Comments [...] Range: > or=60 ml/min/1.73 m2 CHEMISTRY 8 [id number] 13:00:00 Test Item Value Reference Range Comments [...] Range: > or=60 ml/min/1.73 m2 BASIC METABOLIC [id number] 11:41:00 Test Item Value Reference Range Comments [...] (test code=CA) 8.2 MG/DL 8.4-10.2 CBC W/AUTO [id number] 11:37:00 Test Item Value Reference Range Comments [...] RBC # (test code=NRBC#) 0.00 K/mm3 0.0-0.1 [id number] 11:00:00 Test Item Value Reference Range Comments ALCOHOL (test code=ALC) 323.0 MG/DL <10 CALLED TO BERTHA.T& READBACK ON 06/08/18 AT 1100 BY Romina Valdes - XR HIP W/PEL UNI 2+V [id number] 09:57:00 Patient Name: PRIYANKA EVANGELISTA Unit No: [id number] EXAMS: CPT CODE: [id number] XR HIP W/PEL UNI 2+[place] [address] Right hip History: pain Comparison: May 31, [...] Carter Chatman, RT(R) Transcrpt Date/Tm/Trnsp: 06/08 (0957) t.[facility] OrigPrint D/T: S: 06/08/2018 (1001) [facility] NAME: PRIYANKA EVANGELISTA [id number] PHYS: [place] [address] : 1965 AGE : 53 SEX: M LOC: UNK PHONE #: [phone] EXAM DATE: 06/08/2018 STATUS: DEP ER FAX #: [phone] RADIOLOGY NO: PAGE 1 Signed Report- XR HIP W/PEL UNI 2+V [id number] 09:57:00 Patient Name: PRIYANKA EVANGELISTA Unit No: [id number] EXAMS: CPT CODE: [id number] XR HIP W/PEL UNI 2+[place] [id number] Right hip History: pain Comparison: May 31, [...] (0957) t.SDR.PMT OrigPrint D/T: S: 02/2019 (1001) [facility] NAME: PRIYANKA EVANGELISTA [id number] [address] PHYS : [place] [address] : 02/1966 AGE: 53 SEX: M LOC: Z.ERS PHONE #: [phone] EXAM DATE: 06/08/2018 STATUS: REG ER FAX #: [phone] RADIOLOGY NO: PAGE 1 Signed ReportGLUCOSE BEDSIDE [id number] 12:55:00 Test Item Value Reference Range Comments GLUCOSE BEDSIDE TESTING (test code=GLUBED) 160 MG/DL 60-99 GLUCOSE BEDSIDE [id number] 10:49:00 Test Item Value Reference Range Comments GLUCOSE BEDSIDE TESTING (test code=GLUBED) 186 MG/DL 60-99 BASIC METABOLIC [id number] 06:15:00 Test Item Value Reference Range Comments [...] (test code=CA) 8.8 MG/DL 8.4-10.2 CBC W/AUTO [id number] 05:54:00 Test Item Value Reference Range Comments [...] (test code=NRBC#) 0.00 K/mm3 0.0-0.1 GLUCOSE BEDSIDE [id number] 21:08:00 Test Item Value Reference Range Comments GLUCOSE BEDSIDE TESTING (test code=GLUBED) 198 MG/DL 60-99 GLUCOSE BEDSIDE [id number] 18:21:00 Test Item Value Reference Range Comments GLUCOSE BEDSIDE TESTING (test code=GLUBED) 217 MG/DL 60-99 [id number] 13:23:00 Test Item Value Reference Range Comments MAGNESIUM (test code=MAG) 1.6 MG/DL 1.6-2.3 GLUCOSE BEDSIDE [id number] 12:58:00 Test Item Value Reference Range Comments GLUCOSE BEDSIDE TESTING (test code=GLUBED) 334 MG/DL 60-99 GLUCOSE BEDSIDE [id number] 12:40:00 Test Item Value Reference Range Comments GLUCOSE BEDSIDE TESTING (test code=GLUBED) 193 MG/DL 60-99 GLUCOSE BEDSIDE [id number] 10:59:00 Test Item Value Reference Range Comments GLUCOSE BEDSIDE TESTING (test code=GLUBED) 173 MG/DL 60-99 BASIC METABOLIC [id number] 06:55:00 Test Item Value Reference Range Comments [...] (test code=CA) 8.8 MG/DL 8.4-10.2 GLUCOSE BEDSIDE [id number] 06:37:00 Test Item Value Reference Range Comments GLUCOSE BEDSIDE TESTING (test code=GLUBED) 220 MG/DL 60-99 CBC W/AUTO [id number] 06:17:00 Test Item Value Reference Range Comments [...] RBC # (test code=NRBC#) 0.00 K/mm3 0.0-0.1 [id number] 21:42:00 Test Item Value Reference Range Comments MAGNESIUM (test code=MAG) 1.9 MG/DL 1.6-2.3 GLUCOSE BEDSIDE [id number] 21:08:00 Test Item Value Reference Range Comments GLUCOSE BEDSIDE TESTING (test code=GLUBED) 101 MG/DL 60-99 GLUCOSE BEDSIDE [id number] 15:54:00 Test Item Value Reference Range Comments GLUCOSE BEDSIDE TESTING (test code=GLUBED) 261 MG/DL 60-99 Notified Nurse~ GLUCOSE BEDSIDE [id number] 11:18:00 Test Item Value Reference Range Comments GLUCOSE BEDSIDE TESTING (test code=GLUBED) 321 MG/DL 60-99 Notified Nurse~ BASIC METABOLIC [id number] 08:23:00 Test Item Value Reference Range Comments SODIUM (test code=NA) 121 MMOL/L 137-145 POTASSIUM (test code=K) 5.0 MMOL/L 3.5-5.1 CHLORIDE (test code=CL) 84 MMOL/L 98-107 CARBON DIOXIDE (test code=CO2) 27 MMOL/L 22-30 ANION GAP (test code=GAP) 15 MMOL/L 14-24 GLUCOSE (test code=GLU) 344 MG/DL 74-106 [facility] READBACK ON 06/01/18 AT 0822 BY Romina Valdes BLOOD UREA NITROGEN (test 14 MG/DL 9-20 code=BUN) GLOMERULAR FILTRATION RATE > 60 Reporting units: ml/min/1.73 (test code=GFR) m2 (Modified MDRD Formula)Reference Range: > or=60 ml/min/1.73 m2 CREATININE (test code=CREAT) 0.80 MG/DL 0.66-1.25 CALCIUM (test code=CA) 8.9 MG/DL 8.4-10.2 CBC W/AUTO [id number] 07:18:00 Test Item Value Reference Range Comments [...] (test code=NRBC#) 0.00 K/mm3 0.0-0.1 GLUCOSE BEDSIDE [id number] 06:36:00 Test Item Value Reference Range Comments GLUCOSE BEDSIDE TESTING (test code=GLUBED) 296 MG/DL 60-99 [id number] 22:45:00 Test Item Value Reference Range Comments MAGNESIUM (test code=MAG) 1.2 MG/DL 1.6-2.3 GLUCOSE BEDSIDE [id number] 19:56:00 Test Item Value Reference Range Comments GLUCOSE BEDSIDE TESTING (test code=GLUBED) 316 MG/DL 60-99 Notified Nurse~ - XR HIP W/PEL UNI 2+V [id number] 13:13:00 Patient Name: PRIYANKA EVANGELISTA Unit No: [id number] EXAMS: CPT CODE: [id number] XR HIP W/PEL UNI 2+[place] [address] Right hip History: RIGHT FEMUR FRACTURE Comparison: [...] t.SDR.PMT Orig Print D/T: S: 05/31/2018 (1316) [facility] NAME: PRIYANKA EVANGELISTA [address] [place] [address] PHYS: [place] [address] : 1965 AGE: 53 SEX: M LOC: [facility] PHONE #: [phone] EXAM DATE: 05/31/2018 STATUS: DIS IN FAX #: [phone] RADIOLOGY NO: PAGE 1 Signed Report- XR HIP W/ PEL UNI 2+V [id number] 13:13:00 Patient Name: PRIYANKA EVANGELISTA Unit No: [id number] EXAMS: CPT CODE: [id number] XR HIP W/PEL UNI 2+[place] [address] Right hip History: RIGHT FEMUR FRACTURE Comparison: [...] (1313) t.ANGLER.PMT Orig Print D/T: S: 05/31/2018 (2646) [facility] NAME: PRIYANKA EVANGELISTA [id number] PHYS: [place] [address] : 1965 AGE: 53 SEX: M LOC: Z.534 A PHONE #: [phone] EXAM DATE: 05/31/2018 STATUS: ADM IN FAX #: [phone] RADIOLOGY NO: PAGE 1 Signed [id number] 12:56:00 Test Item Value Reference Range Comments HEMOGLOBIN (test code=HGB) 11.1 G/DL 12.4-16.7 Specimen comments: Patient in PACUComments to Spring Coverer: Patient in [id number] 12:56:00 Test Item Value Reference Range Comments HEMATOCRIT (test code=HCT) 34.1 % 35.9-49.5 Specimen comments: Patient in PACUComments to [employer] Coverer: Patient in PACUGLUCOSE BEDSIDE [id number] 09:21:00 Test Item Value Reference Range Comments [...] HIGH.........130-159 mg/dL HIGH.........160-189 mg/dL VERY HIGH.........>/=190 mg/dL [id number] 07:50:00 Test Item Value Reference Range Comments MAGNESIUM (test code=MAG) 1.3 MG/DL 1.6-2.3 THYROID STIMULATING [id number] 07:50:00 Test Item Value Reference Range Comments [...] HIGH.........130-159 mg/dL HIGH.........160-189 mg/dL VERY HIGH.........>/=190 mg/dL [id number] 07:30:00 Test Item Value Reference Range Comments MAGNESIUM (test code=MAG) 1.3 MG/DL 1.6-2.3 THYROID STIMULATING [id number] 07:30:00 Test Item Value Reference Range Comments THYROID STIMULATING HORMONE (test code=TSH) MIU/L 0.465-4.68 LIPID PROFILE (CORONARY RISK)2018-05-31 07:19:00 Test Item Value Reference Range Comments TRIGLYCERIDES (test code=TRIG) 93 MG/DL TRIGLYCERIDES REFERENCE RANGE:Normal: <150 mg/dLBorderline High: 150-199 mg/dLHigh: 200-499 mg/dLVery High: >=500 mg/dL CHOLESTEROL (test code=CHOL) 191 MG/DL <200 HDL CHOLESTEROL (test 58 MG/DL 40-59 code=HDL) LIPOPROTEIN LDL (test MG/DL 0-99 code=LDL) [id number] 07:19:00 Test Item Value Reference Range Comments MAGNESIUM (test code=MAG) 1.3 MG/DL 1.6-2.3 THYROID STIMULATING [id number] 07:19:00 Test Item Value Reference Range Comments THYROID STIMULATING HORMONE (test code=TSH) MIU/L 0.465-4.68 GLYCOSYLATED HEMOGLOBIN [id number] 22:01:00 Test Item Value Reference Range Comments [...] (test 260 MG/DL 70-110 code=MBG) COMPREHENSIVE METABOLIC [id number] 20:45:00 Test Item Value Reference Range Comments SODIUM (test code=NA) 139 MMOL/L 137-145 POTASSIUM (test code=K) 4.9 MMOL/L 3.5-5.1 CHLORIDE (test code=CL) 101 MMOL/L 98-107 CARBON DIOXIDE (test code=CO2) 24 MMOL/L 22-30 ANION GAP (test code=GAP) 19 MMOL/L 14-24 GLUCOSE (test code=GLU) 332 MG/DL 74-106 CALLED TO GERA CUMMINS FSV=101& READBACK ON 05/30/18 AT 5 BY Jeremías [...] (test 192 UNITS/L 38-126 code=ALKP) GLUCOSE BEDSIDE [id number] 16:40:00 Test Item Value Reference Range Comments GLUCOSE BEDSIDE TESTING (test code=GLUBED) 314 MG/DL 60-99 URINALYSIS [id number] 15:07:00 Test Item Value Reference Range Comments [...] NEEDED? (test code=UACULT) Criteria Culture Chk URINALYSIS [id number] 15:07:00 Test Item Value Reference Range Comments [...] CULTURE Culture Chk code=UACULT) Criteria GLUCOSE BEDSIDE [id number] 12:16:00 Test Item Value Reference Range Comments GLUCOSE BEDSIDE TESTING (test code=GLUBED) 368 MG/DL 60-99 COMPREHENSIVE METABOLIC [id number] 11:34:00 Test Item Value Reference Range Comments [...] ALKALINE PHOSPHATASE (test 204 UNITS/L 38-126 code=ALKP) [id number] 11:34:00 Test Item Value Reference Range Comments ALCOHOL (test code=ALC) 348.0 MG/DL <[address] ALFONSO& READBACK ON 05/30/18 AT 1133 BY Elizabeth Machado PROTHROMBIN [id number] 11:11:00 Test Item Value Reference Range Comments [...] recurrent systemic embolism. 3.0 - 4.5 PTT [id number] 11:11:00 Test Item Value Reference Range Comments PTT ACTIVATED (test code=APTT) 25.5 SECONDS 22.0-33.0 CBC W/AUTO [id number] 10:57:00 Test Item Value Reference Range Comments [...] 0.0-0.1 - XR HIP W/PEL UNI 2+V [id number] 09:50:00 Patient Name: PRIYANKA EVANGELISTA Unit No: [id number] EXAMS: CPT CODE: [id number] XR HIP W/PEL UNI 2+[place] [address] Location code: R 16 Right hip 2 [...] (0950) AlbinaDRB1 Orig Print D/T: S: 05/30/2018 (4653) [facility] NAME: PRIYANKA EVANGELISTA [id number] PHYS: [place] [address] : 1965 AGE: 53 SEX: M LOC: [employer] PHONE #: [phone] EXAM DATE: 05/30/2018 STATUS: DIS IN FAX #: [phone] RADIOLOGY NO: PAGE 1 Signed Report- XR HIP W/PEL UNI 2+V [id number] 09:50:00 Patient Name: PRIYANKA EVANGELISTA Unit No: [id number] EXAMS: CPT CODE: [id number] XR HIP W/PEL UNI 2+[place] [address] Location code: R 16 Right hip 2 [...] Naveed(R); Holger Goff (RT)(R) Transcrpt Date/Tm/Trnsp: 05/30/2018 (2550) AlbinaDRB1 Orig Print D/T: S: (0953) [facility] NAME: PRIYANKA EVANGELISTA [address] PHYS : [place] [address] : 02/1966 AGE: 53 SEX: M LOC: .[facility] PHONE #: [phone] EXAM DATE: STATUS: PRE ER FAX #: [phone] RADIOLOGY NO: PAGE 1 Signed Report- XR HIP W/PEL UNI 2+V [id number] 14:25:00 Patient Name: PRIYANKA EVANGELISTA Unit No: [id number] EXAMS: CPT CODE: [id number] XR HIP W/PEL UNI 2+[place] [address] Fluoroscopy Left hip nailing FINDINGS: An intramedullary [...] (1425) tLEONORR.RK5 Orig Print D/T:S: 05/16/2016 (1428) [facility] NAME: PRIYANKA EVANGELISTA [id number] PHYS: [place] [address] : 1965 AGE: 51 SEX: M LOC: [facility] PHONE #: [phone] EXAM DATE: 05/16/2016 STATUS: UNK FAX #: [phone] RADIOLOGY NO: PAGE 1 Signed Report- XR WRIST 3+V [id number] 19:15:00 Patient Name: PRIYANKA EVANGELISTA Unit No: [id number] EXAMS: CPT CODE: [id number] XR WRIST 3+V [place] [address] Location n 13 Left Wrist, 3 views [...] Frederick Orig Print D/T: S: 01/31/2016 (1917) [facility] NAME: PRIYANKA EVANGELISTA [id number] PHYS: [place] [address] : 1965 AGE: 50 SEX: M LOC: [employer] PHONE #: [phone] EXAM DATE: 2015 STATUS: [facility] FAX #: [phone] RADIOLOGY NO: PAGE 1 Signed Report
--- OUTSIDE RECORDS SUMMARY | 2019-06-20 01:09 | XMS REPORT ---
[...] Problem Depression with anxiety F41.8 Active Problem alf (current) use of insulin Z79.4 Active Problem [...] Dosage System Date Date Duloxetine HCl [facility] 55792926304 60 MG Oral Active TAKE 1 CAPSULE TWICE DAILY ProAir HFA [facility] 60915609440 108 (90 Base) Active 2 puffs as MCG/ACT needed Inhalation every 6 hrs Folic Acid [facility] 93519530301 1 MG Orally Active 1 tablet Once a day One Touch NDC 0 Once twice a Active one Delica test day strips Gabapentin [facility] 75254595450 600 MG Oral Active TAKE 1 TABLET BY MOUTH THREE TIMES A DAY Fenofibrate [facility] 80564686544 160 MG Oral Active take 1 tablet Once a day by mouth every day with supper Lisinopril [facility] 25761211095 20 MG Oral Once Active take 1 tablet a day by mouth every day Levetiracetam [facility] 29953792570 1000 MG Orally Dec Active 1 tablet Once a day 2018 Atorvastatin [facility] 16872038265 20 MG Orally Dec Active 1 tablet Calcium Once a day 2018 Metformin HCl [facility] 69987741364 1000 MG Orally Active 1 tablet with a BID meal Trazodone HCl [facility] 38999269409 100 MG Orally Dec Active 1 tablet at Once a day , bedtime 2018 Pantoprazole [facility] 97607291119 40 MG Orally Active 1 tablet Sodium Once a day Tramadol HCl [facility] 93772144712 50 MG Orally Active 1 tablet as Once a day PRN needed SEVERE PAIN Vicodin [facility] 27686759039 5-300 MG Orally Dec Inactive 1 tablet as every 6 hrs 17, needed 2018 Humulin R [facility] 98881029151 100 UNIT/ML Dec Active inject 2-18 Injection twice 13, units per a day 2019 sliding scale OneTouch Verio [facility] 17903022887 - In Vitro 4 Dec Active 1 test strip times a day 2018 Tresiba [facility] 38644862097 200 UNIT/ML Dec Active inject 30 units FlexTouch Subcutaneous 17, Once a day 2018 Cymbalta [facility] 97631802711 60 MG Orally Active 1 capsule Twice a day Insulin Syringe [facility] 69330080864 30G X 1/2 Active 1 syringe subcutaneously six times a day One Touch NDC 0 Active not defined Delica Lancets Humulin N [facility] 28220764203 100 UNIT/ML Inactive INJECT 20 UNITS Subcutaneous SUBCUTANEOUSLY 2 TIMES A DAY WITH MEALS Results No Known Results Summary Purpose eClinicalWorks Submission
--- OUTSIDE RECORDS SUMMARY | 2019-06-20 01:10 | XMS REPORT ---
[...] Problem Depression with anxiety F41.8 Active Problem senior care (current) use of insulin Z79.4 Active Problem GERD without esophagitis K21.9 Active Medications Medication Code System Code Instructions Start Date End Date Status Dosage Gabapentin [facility] 37014505914 600 MG Orally Active 1 tablet three times a day Results No Known Results Summary Purpose eClinicalWorks Submission
--- OUTSIDE RECORDS SUMMARY | 2019-06-20 01:10 | XMS REPORT ---
[...] Problem Depression with anxiety F41.8 Active Problem group home (current) use of insulin Z79.4 Active Problem [...] Status Dosage System Date Date Metformin HCl [facility] 45955860362 500 MG Oral Inactive TAKE 2 TABLETS BY MOUTH EVERY DAY Pantoprazole ND 95249661923 40 MG Orally Active 1 tablet Sodium Once a day Humulin R ND 51123139607 100 UNIT/ML Mar 11, Active inject Injection twice 2019 2-18 units a day per sliding scale One Touch NDC 0 Once twice a Inactive one Delica test day strips OneTouch Verio [facility] 64084020502 - In Vitro Mar 11, Active 1 test times a day 2018 strip Cymbalta ND 01844751913 60 MG Orally Active 1 capsule Twice a day Duloxetine HCl ND 60658461297 60 MG Oral Inactive TAKE 1 CAPSULE TWICE DAILY Results No Known Results Summary Purpose eClinicalWorks Submission
[2019-06-20] MEDS ORDERED: NA CHLORIDE 0.9% 1,000 ML ONE (01:44)
[2019-06-20 02:09] LABS: Protime INR 1.13
[2019-06-20 02:10] LABS: Absolute Lymphocytes (CBC) 1.5 K/uL (0.7-4.9); Basophils % 0.4 % (0-1.3); Lymphocytes % 13.2 % (15.3-44.8); MPV 7.9 fL (7.6-11.3); RBC Red Blood Cell Count 3.29 M/uL (4.33-5.43)
[2019-06-20 03:25] LABS: ALT/SGPT 36 U/L (12-78); AST/SGOT 24 U/L (15-37); Albumin 3.5 g/dL (3.4-5.0); Alkaline Phosphatase 185 U/L (45-117); BUN Blood Urea Nitrogen 36 mg/dL (7-18); Bicarbonate 27 mmol/L (21-32); Bilirubin Direct < 0.1 mg/dL (0-0.2); Bilirubin Total 0.2 mg/dL (0.2-1.0); Glucose Level 75 mg/dL (74-106); Magnesium 0.7 mg/dL (1.8-2.4); NT PRO-BNP 178 pg/mL (<125); Sodium Level 136 mmol/L (136-145); Troponin (Emerg Dept Use Only) < 0.02 ng/mL (0.0-0.045)
[2019-06-20 03:28] LABS: Urine Bacteria <20 /HPF (NONE SEEN); Urine Culture Reflex Order NOT NEEDED
[2019-06-20 03:28] LABS: Urine Blood 1+ (NEG); Urine Glucose 2+ (NEG); Urine Protein NEGATIVE (NEG); Urine Specific Gravity 1.025 (1.005-1.030)
[2019-06-20 03:35] LABS: Barbiturates NEGATIVE (NEGATIVE); Benzodiazepines NEGATIVE (NEGATIVE); Cocaine NEGATIVE (NEGATIVE); METHAMPHETAM NEGATIVE (NEGATIVE); Methadone NEGATIVE (NEGATIVE); Opiates NEGATIVE (NEGATIVE); Phencyclidine NEGATIVE (NEGATIVE); THC Cannibis NEGATIVE (NEGATIVE)
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
--- NOTE | 2019-06-20 04:27 | EDPHYS ---
Physician Documentation [facility] Name: Frandy Gomes Age: 54 yrs Sex: Male : 1965 Arrival Date: 06/20/2019 Time: 01:04 Bed 6 Private MD: ED Physician Roge Henderson HPI: 06/19 01:37 This 54 yrs old Male presents to ER via EMS with complaints of Hip Pain. pkl 01:37 Patient apparently AMA earlier tonight. Patient was admitted to the hospital on 06/11/19 pkl for altered mental status, DKA, obstructive uropathy and acute renal injury. Patient fell into the ditch on the way home. Patient brought in by ambulance complaining of pain in his left hip.. Historical: - Allergies: 01:11 No Known Allergies; lp1 - Home Meds: 01:11 atorvastatin 20 mg Oral tab 1 tab once daily [Active]; duloxetine 60 mg Oral cpDR 1 cap lp1 twice a day [Active]; fenofibrate 160 mg Oral tab 1 tab once daily [Active]; Folic Acid 1000 mg Oral once daily [Active]; gabapentin 600 mg Oral tab 1 tab 3 times per day [Active]; levetiracetam 1,000 mg Oral tab 1 tab daily [Active]; lisinopril 20 mg Oral tab 1 tab once daily [Active]; metformin 1,000 mg Oral tab 1 tab 2 times per day [Active]; pantoprazole 40 mg Oral TbEC 1 tab once daily [Active]; trazodone 100 mg Oral tab nightly [Active]; - PMHx: 01:11 COPD; Diabetes - NIDDM; GERD; Hyperlipidemia; Hypertension; Seizures; titanium marjorie in lp1 arm and hip; - PSHx: 01:11 L hip surgery; R hip surgery; lp1 - Immunization history:: Adult Immunizations unknown. - Social history:: Smoking status: Patient reports the use of cigarette tobacco products, denies chronic smoking, but will smoke occasionally. ROS: 01:37 Eyes: Negative for injury, pain, redness, and discharge, ENT: Negative for injury, pkl pain, and discharge, Neck: Negative for injury, pain, and swelling, Cardiovascular: Negative for chest pain, palpitations, and edema, Respiratory: Negative for shortness of breath, cough, wheezing, and pleuritic chest pain, Abdomen/GI: Negative for abdominal pain, nausea, vomiting, diarrhea, and constipation, Back: Negative for injury and pain. 01:37 : Positive for difficulty urinating. 01:37 MS/extremity: Positive for pain, of the left hip. 01:37 Skin: Positive for multiple sores all over body. 01:54 Neuro: Negative for altered mental status, loss of consciousness. pkl Exam: 01:54 Head/Face: Normocephalic, atraumatic. Eyes: Pupils equal round and reactive to light, pkl extra-ocular motions intact. Lids and lashes normal. Conjunctiva and sclera are non-icteric and not injected. Cornea within normal limits. Periorbital areas with no swelling, redness, or edema. ENT: Nares patent. No nasal discharge, no septal abnormalities noted. Tympanic membranes are normal and external auditory canals are clear. Oropharynx with no redness, swelling, or masses, exudates, or evidence of obstruction, uvula midline. Mucous membranes moist. Neck: Trachea midline, no thyromegaly or masses palpated, and no cervical lymphadenopathy. Supple, full range of motion without nuchal rigidity, or vertebral point tenderness. No Meningismus. Chest/axilla: Normal chest wall appearance and motion. Nontender with no deformity. No lesions are appreciated. Cardiovascular: Regular rate and rhythm with a normal S1 and S2. No gallops, murmurs, or rubs. Normal PMI, no JVD. No pulse deficits. Respiratory: Lungs have equal breath sounds bilaterally, clear to auscultation and percussion. No rales, rhonchi or wheezes noted. No increased work of breathing, no retractions or nasal flaring. Abdomen/GI: Soft, non-tender, with normal bowel sounds. No distension or tympany. No guarding or rebound. No evidence of tenderness throughout. Back: No spinal tenderness. No costovertebral tenderness. Full range of motion. 01:54 Musculoskeletal/extremity: Extremities: grossly normal except: noted in the left hip: pain. 01:54 Skin: multiple sores all over body. 01:54 Neuro: Orientation: appropriate for stated age, Mentation: Cranial nerves: grossly normal, Motor: is normal. 03:14 ECG was reviewed by the Attending Physician. NSR, KS interval 158 ms, QRS pkl duration 78 ms. Vent. rate 90 bpm Vital Signs: 01:06 BP 104 / 76; Pulse 96; Resp 20; Temp 97.7(O); Pulse Ox 93% on R/A; Weight 69.4 kg (R); lp1 Height 5 ft. 8 in. (172.72 cm); Pain 10/10; 01:30 BP 98 / 69; Pulse 90; Resp 13; Pulse Ox 100% on R/A; lp1 02:30 BP 101 / 72; Pulse 96; Resp 19; Pulse Ox 99% on R/A; lp1 03:15 BP 103 / 73; Pulse 92; Resp 12; Pulse Ox 99% on R/A; lp1 04:15 BP 89 / 60; Pulse 100; Resp 16; Pulse Ox 100% on R/A; lp1 05:27 BP 103 / 66; Pulse 98; Resp 15; Pulse Ox 100% on R/A; lp1 06:00 BP 98 / 62; Pulse 95; Resp 16; Pulse Ox 99% on R/A; rr5 01:06 Body Mass Index 23.26 (69.40 kg, 172.72 cm) lp1 MDM: 01:04 Patient medically screened. pkl 04:22 Data reviewed: vital signs, nurses notes, lab test result(s), EKG, radiologic studies, pkl CT scan, plain films. 04:36 ED course: Patient does not want to be transferred elsewhere. Dr. Hall will see pkl patient in ER. 06/19 01:32 Order name: Basic Metabolic Panel; Complete Time: 03:29 pkl 06/19 01:32 Order name: CBC with Diff; Complete Time: 02:19 pkl 06/19 01:32 Order name: LFT's; Complete Time: 03:29 pkl 06/19 01:32 Order name: Magnesium; Complete Time: 03:29 pkl 06/19 01:32 Order name: NT PRO-BNP; Complete Time: 03:29 pkl 06/19 01:32 Order name: PT-INR; Complete Time: 02:19 pkl 06/19 01:32 Order name: Troponin (emerg Dept Use Only); Complete Time: 03:29 pkl 06/19 02:23 Order name: UDS; Complete Time: 03:37 pkl 06/19 02:31 Order name: Urine Dipstick--Ancillary (enter results); Complete Time: 03:29 mw2 06/19 02:36 Order name: Urine Microscopic Only rr5 06/19 02:37 Order name: Urine Microscopic Only; Complete Time: 03:29 EDMS 06/19 04:22 Order name: ETOH Level; Complete Time: 06:14 rr5 06/19 05:08 Order name: UR CREAT EDMS 06/19 05:08 Order name: UR SODIUM EDMS 06/19 01:32 Order name: XRAY Chest (1 view) pkl 06/19 01:32 Order name: EKG; Complete Time: 01:33 pkl 06/19 01:32 Order name: Hip Left 2 View XRAY pkl 06/19 03:01 Order name: Hip Left Wo Con EDMS 06/19 05:08 Order name: CONS Pharmacy Consult EDMS 06/19 05:08 Order name: Case Management Consult EDMS 06/19 05:08 Order name: Thyroid Stimulating Hormone; Complete Time: 06:14 EDMS 06/19 05:09 Order name: CBC with Automated Diff EDMS 06/19 05:09 Order name: CBC with Automated Diff EDMS 06/19 05:09 Order name: CBC with Automated Diff EDMS 06/19 05:09 Order name: CBC with Automated Diff EDMS 06/19 05:09 Order name: Comprehensive Metabolic Panel EDMS 06/19 05:09 Order name: Comprehensive Metabolic Panel EDMS 06/19 05:55 Order name: T4 Free; Complete Time: 06:14 EDMS 06/19 01:32 Order name: Cardiac monitoring; Complete Time: 01:40 pkl 06/19 01:32 Order name: EKG - Nurse/Tech; Complete Time: 01:46 pkl 06/19 01:32 Order name: IV Saline Lock; Complete Time: 01:46 pkl 06/19 01:32 Order name: Labs collected and sent; Complete Time: 01:46 pkl 06/19 01:32 Order name: O2 Per Protocol; Complete Time: 01:40 pkl 06/19 01:32 Order name: O2 Sat Monitoring; Complete Time: 01:40 pkl 06/19 02:23 Order name: Keene; Complete Time: 02:31 pkl 06/19 05:08 Order name: CONS Physician Consult EDMS 06/19 05:08 Order name: CONS Physician Consult EDMS 06/19 05:08 Order name: Physical Therapy Consult [facility] 06/19 05:08 Order name: NPO [facility] Administered Medications: 01:45 Drug: NS 0.9% 1000 ml Route: IV; Rate: 125 ml/hr; Site: right forearm; lp1 05:27 Follow up: IV Status: Infusion continued upon admission lp1 Disposition: 06/20/19 04:26 Hospitalization ordered by Yi Hall for Inpatient Admission. Preliminary diagnosis is Acute partially impacted complex left femoral head fracture without dislocation. Urinary distention. S/P Fall. - Bed requested for Telemetry/MedSurg (Inpatient). - Status is Inpatient Admission. lp1 - Condition is Stable. - Problem is new. - Symptoms are unchanged. Signatures: Dispatcher [employer] EDSC Roge Henderson MD MD pkl Nahomy Gifford RN RN lp1 Alexia Morrison RN RN cg Corrections: (The following items were deleted from the chart) 03:01 02:49 CT LEFT HIP WO CONTRAST ordered. [facility] EDSC 04:28 04:26 Hospitalization Ordered by Yi Hall MD for Inpatient Admission. Preliminary pkl diagnosis is Acute partially impacted complex left femoral head fracture without dislocation. Urinary distention. Bed requested for Telemetry/MedSurg (Inpatient). Status is Inpatient Admission. Condition is Stable. Problem is new. Symptoms are unchanged. pkl 04:41 04:22 ED course: Talked to Dr. Hall, admit. pkl pkl 05:22 04:28 06/20/2019 04:26 Hospitalization Ordered by Yi Hall MD for Inpatient cg Admission. Preliminary diagnosis is Acute partially impacted complex left femoral head fracture without dislocation. Urinary distention. S/P Fall. Bed requested for Telemetry/MedSurg (Inpatient). Status is Inpatient Admission. Condition is Stable. Problem is new. Symptoms are unchanged. pkl 06:11 05:22 06/20/2019 04:26 Hospitalization Ordered by Yi Hall MD for Inpatient lp1 Admission. Preliminary diagnosis is Acute partially impacted complex left femoral head fracture without dislocation. Urinary distention. S/P Fall. Bed requested for Telemetry/MedSurg (Inpatient). Status is Inpatient Admission. Condition is Stable. Problem is new. Symptoms are unchanged. cg
[2019-06-20] MEDS ORDERED: MORPHINE 2 MG/ML SYR IV PRN (04:56)
[2019-06-20] MEDS ORDERED: ALBUTEROL 2.5 MG/3 ML NEB SOL NEB PRN ×2 (04:56→15:00)
[2019-06-20] MEDS ORDERED: ONDANSETRON 4 MG/2 ML VIAL IV PRN (04:56)
[2019-06-20 05:41] LABS: Thyroid Stimulating Hormone 5.19 uIU/mL (0.360-3.740)
[2019-06-20 06:29] VITALS: BMI 22.9
[2019-06-20] MEDS: Magnesium Sulfate 2gm IVPB 2 G/50 ML BAG IV SCH ×2 (06:46→19:00)
[2019-06-20] MEDS: Ringers Lactate 1,000 ML IV SCH ×3 (06:46→20:33)
--- NOTE | 2019-06-20 07:24 | EKG ---
Test Date: 2019-06-20 Test Time: 01:43:04 Medical Services Manager: VINICIO MEASUREMENT RESULTS: Intervals: Rate: 90 [place]: 158 QRSD: 78 QT: 344 QTc: 420 [place]: P: 52 [place]: 158 QRS: 43 T: 47 INTERPRETIVE STATEMENTS: Normal sinus rhythm Normal ECG Compared to ECG 06/11/2019 02:57:08 Sinus tachycardia no longer present Electronically Signed On 06-20-19 07:24:27 CDT by Dar Nolasco
[2019-06-20] MEDS: INSULIN -REGULAR HUMAN 50 UNIT/0.5 ML ML SQ SCH ×4 (07:30→21:06)
--- NOTE | 2019-06-20 08:07 | HP ---
Date of Admission: 06/20/2019 Presenting Complaint: Fall with left hip pain. Hpi: Eliseo Wise is a 54-year-old male with past medical history of hypertension, diabet es mellitus, seizure disorder, COPD, history of previous bilateral hip replacements at [facility], who was initially admitted here 7 days ago for altered mental status, was noted to have urosepsis wit h obstructive uropathy requiring Keene placement and treatment for cystitis. He also at that time polo d change in mental status and had Neurology evaluation for possible recurrent seizures. The patient had a prolonged hospital course, but was improving and yesterday had his Keene removed, but was still having urinary retention, but at late last night, the patient decided to leave AMA. He was initiall y evaluated and noted to be oriented x3 and the patient signed AMA papers and left. However, he was brought back to the ED by the EMS after he was found in a ditch on his way home. The patient states he while leaving the hospital, he had unsteady gait and had fell into a ditch before being rescued by the police. He admits to pain in the posterolateral side of the left hip now. He denies any headac he or dizziness. He is requesting pain medication. In the ED, he had a Keene reinserted with over 1 200 cc of urine output. The patient denies any recent alcohol intake or drug use. He is refusing to be transferred to [facility] for Orthopedics evaluation. During patient's hospitalization, the patient was initially managed for DKA. Past Medical History: Significant for hypertension, seizure disorder, diabetes mellitus, COPD, GERD, hyperlipidemia, previous left humeral surgery with titanium marjorie placement, bilateral hip replacement at [facility], recent cystitis with urine retention. Past Surgical History: As noted above. Family History: Significant for coronary artery disease. Social History: Patient admits to previous alcohol use. He states his alcohol intake was 2 months a go. He admits to tobacco use, but denies any illicit drug use. Review of Systems: All systems reviewed x14 were negative except as mentioned above. Home Medication: Previous inpatient home medications reviewed as well as current inpatient medicatio ns also reviewed. Allergies: NO KNOWN DRUG ALLERGIES. Physical Examination: Current Vitals: Blood pressure of 88/57, pulse of 96, temp of 97.7, respiratory rate of 20, pulse ox of 83 on room air. Weight of 69.4 kg. General: A middle-aged male, chronically ill looking, curre ntly lying in bed. Head: Atraumatic, normocephalic. Pupils equal and reactive to light, anicteric. Neck: No JVD. No carotid bruit. Respiratory: Good air entry. No crepitation. Cardiovascular: S1, S2. Rate and rhythm regular GI: Abdomen full, soft, nontender. Bowel sounds positive. : Keene catheter in-situ with clear lonnie-colored urine. No suprapubic fullness. Normal external genitalia. Rectal: Deferred. Musculoskeletal: Multiple healing abrasions over the lower extremities and tender ness over the left hip area, but no overt hematoma. Patient moving extremities with no calf tenderne ss. Neuro: Patient is alert, oriented. Cranial nerves 2 through 12 grossly intact. Laboratory Data: Sodium 136, potassium 4, BUN 36, creatinine 1.78, previous was 1.4 yesterday. Last hemoglobin A1c 1 week ago was 12.3, magnesium of 0.7, ProBNP of 178. Troponin less than 0.02. WBC 11, platelets 290, hemoglobin 9.8. Urinalysis shows 5-10 rbc's. No nitrites, no wbc. Urine drug sc reen was essentially negative. Serum alcohol pending. INR 1.1. Chest x-ray shows no acute patholog y. Hip x-ray shows impacted nondisplaced fracture of the femoral neck with intramedullary marjorie. EKG showed normal sinus rhythm, no ST-segment changes. Impression: 1.Left femoral neck prosthetic fracture. 2.Cystitis. 3.Persistent urinary retention, presumed due to BPH. 4.Hypotension. 5.Acute renal failure. 6.Diabetes mellitus with recent diabetic ketoacidosis. 7.History of seizure disorder with recent altered mental status. Plan: 1.We will admit patient to inpatient. We will consult Orthopedic Surgery in a.m. The patient will need to be transferred to [facility] because he feels his surgery was not well done there. If although not willing to do surgery, the patient may need to be transferred out to [facility] again . 2.We will do pain medication with morphine p.r.n. 3.We do subcutaneous heparin for DVT prophylaxis for now. We are going to continue aggressive IV hy dration. We leave Keene inserted for now. 4.We will continue antibiotics for cystitis as well as Flomax. 5.Given patient's borderline low blood pressure, we started patient on low-dose midodrine. We will replete magnesium. 6.We will resume patient on antiseizure medications and follow. 7.DVT prophylaxis, heparin subcu for now. 8.Advanced directives, patient is full code. Total time spent in review of record, discussion with patient and evaluation, greater than 65 minutes . EO/MODL Voice ID: [id number]
--- NOTE | 2019-06-20 08:12 | RAD REPORT ---
EXAM DESCRIPTION: RAD - Hip Left 2 View - 06/20/2019 4:01 am CLINICAL HISTORY: Left hip pain status post injury FINDINGS: Compression screw and intramedullary marjorie have been placed into the left femur Areas of lucency and sclerosis within the femoral head and neck indicate avascular necrosis. No gross fracture or dislocation seen. Osteoporosis. If patient has clinical symptoms to suggest an occult fracture then CT would be recommended
--- NOTE | 2019-06-20 08:13 | RAD REPORT ---
EXAM DESCRIPTION: Disha Single View06/20/2019 4:01 am CLINICAL HISTORY: Chest pain COMPARISON: June 11, 2019 FINDINGS: The lungs appear clear of acute infiltrate. The heart is normal size IMPRESSION: No acute abnormalities displayed
[2019-06-20] MEDS: HEPARIN 5000 UNIT/ML 1 ML VIAL SQ SCH ×2 (08:34→16:41)
[2019-06-20] MEDS: FOLIC ACID 1 MG TABLET PO SCH (08:34)
[2019-06-20] MEDS: MIDODRINE HCL 5 MG TABLET PO SCH ×3 (08:34→21:05)
[2019-06-20] MEDS: levETIRAcetam 500 MG TAB PO SCH ×2 (08:34→12:03)
[2019-06-20] MEDS: FAMOTIDINE 20 MG TAB PO SCH ×2 (08:34→20:40)
[2019-06-20] MEDS: FENOFIBRATE 160 MG TAB PO SCH (08:34)
[2019-06-20] MEDS: DULOXETINE 30 MG CAP PO SCH ×3 (08:34→21:05)
[2019-06-20] MEDS: NICOTINE 21 MG/PAT TD SCH (09:00)
[2019-06-20] MEDS ORDERED: levoFLOXacin 750 MG TAB PO SCH ×2 (09:00→12:00)
[2019-06-20] MEDS ORDERED: CEFTRIAXONE 1 GM/NS 50 ML 1 GM/50 ML BAG IV SCH (09:00)
[2019-06-20] MEDS: CEFTRIAXONE/SWI 1gm 1 GM/10 ML SYR IV SCH (09:53)
--- NOTE | 2019-06-20 11:13 | RAD REPORT ---
EXAM DESCRIPTION: CT - Hip Left Wo Con - 06/20/2019 4:52 am CLINICAL HISTORY: Pain. Fall. COMPARISON: CT abdomen and pelvis without contrast 06/11/2019. TECHNIQUE: Axial 2.[address] imaging of the left hip performed. Reformatted coronal and sagittal image s obtained. No contrast utilized. Automated exposure control, adjustment of the mA and/or kV according to patient size, or use of itera tive reconstruction was performed. FINDINGS: There is a transcervical fixation nail in the proximal left femur with intramedullary marjorie. There is patchy sclerosis within multiple areas of abnormal lucency left femoral head and neck due t o remote trauma. There is a superimposed acute partially impacted fracture of the left femoral head. There is no dislo cation. No hip effusion. The included portions of the left hemipelvis appear intact. The bladder is thickened. There is intrabladder air due to Keene catheterization. Normal prostate siz e. Prostate contains dystrophic calcification. Large amount of fecal loading within the rectum. Nonen larged left inguinal lymph nodes. IMPRESSION: 1. Acute partially impacted complex left femoral head fracture without dislocation. In tact fixation hardware. 2. Cystitis. Electronically signed by: Kelley Braswell DO 06/20/2019 4:03 AM CDT Due to temporary technical issues with the PACS/Fluency reporting system, reports are being signed by the in house radiologist as a courtesy to ensure prompt reporting. The interpreting radiologist is f ully responsible for the content of the report.
[2019-06-20] MEDS: Oxycodone HCl/Acetaminophen 1 TAB TAB PO PRN ×2 (12:12→21:05)
--- NOTE | 2019-06-20 12:16 | P.PN ---
Date of Service: 06/20/19 Patient seen and examined. Denies report patient bled for his peripheral IV site when it came out. Patient has no complaint except pain in the left hip area. CT he reports acute partially impacted left femoral neck fracture without displaced. Femoral fracture not identified on the hip x-ray. I spoke to Dr. Greco will disagrees with radiology report. Dr. Greco also stated patient will need to be transferred to his orthopedic surgeon or tertiary center in there is indeed a fracture. Patient has significant pain in the left hip area which was not present before he left this hospital AMA and before he fell. We will go ahead and initiate transfer to [facility] where he had his previous for hip prosthesis placed. Noted severe hypomagnesemia which is being repleted IV. Will check hemoglobin given significant bleed from the IV line as reported by the nurse.
[2019-06-20] MEDS: ATORVASTATIN 20 MG TAB PO SCH (21:06)
[2019-06-20] MEDS: TAMSULOSIN 0.4 MG SR CAP PO SCH (21:06)
[2019-06-20] MEDS: MAGNESIUM OXIDE 400 MG TAB PO SCH (21:06)
--- NOTE | 2019-06-20 23:38 | PN ---
Date of Progress Note: 06/20/2019 Chief Complaint: Acute on chronic kidney injury, obstructive uropathy. History Of Present Illness: Patient developed urinary retention and had a Keene catheter inserted. Patient developed polyuria postobstructive and electrolyte replacement protocol was initiated primarily. He had hyperkalemia due to obstructive uropathy and bladder outlet obstruction. Subsequently, potassium level stabilized with treatment. He received calcium gluconate and Kayexalate. Patient has a history of noncompliance. He requested to be discharged to home yesterday and came this morning because he sustained falls. He is admitted and a lab work is pending to check electrolytes. Review of Systems: Denies chest pain or palpitations. Physical Examination: Lungs: Clear to auscultation bilaterally. Heart: S1, S2. Abdomen: Soft, benign. Extremities: Slight edema. Impression And Plan: 1. Acute on chronic kidney injury, postobstructive diuresis. Recommend to continue Flomax. Attempt to remove Keene catheter was made. Patient although required reinsertion of Keene catheter. Monitor diuresis. Adjust electrolyte replacement. 2. History of seizure. Continue Keppra. 3. Polyuria due to postobstructive diuresis, adjust intake and IV fluids. 4. Hypomagnesemia, hypokalemia replacement according to lab results. I spent total 36 min including 25 min to coordinate care plan. ANGELIA/DAVIN Voice ID: [id number] Report ID: [id number] KATHYA
[2019-06-21] MEDS: HEPARIN 5000 UNIT/ML 1 ML VIAL SQ SCH ×3 (00:59→17:06)
[2019-06-21] MEDS: Ringers Lactate 1,000 ML IV SCH ×3 (03:42→21:00)
[2019-06-21] MEDS: Magnesium Sulfate 2gm IVPB 2 G/50 ML BAG IV SCH (03:42)
[2019-06-21] MEDS: CEFTRIAXONE/SWI 1gm 1 GM/10 ML SYR IV SCH (09:00)
[2019-06-21] MEDS: NICOTINE 21 MG/PAT TD SCH (09:00)
[2019-06-21] MEDS: FAMOTIDINE 20 MG TAB PO SCH ×2 (09:07→22:06)
[2019-06-21] MEDS: levETIRAcetam 500 MG TAB PO SCH (09:07)
[2019-06-21] MEDS: MIDODRINE HCL 5 MG TABLET PO SCH ×2 (09:08→22:06)
[2019-06-21] MEDS: DULOXETINE 30 MG CAP PO SCH ×2 (09:08→22:07)
[2019-06-21] MEDS: MAGNESIUM OXIDE 400 MG TAB PO SCH ×2 (09:08→22:05)
[2019-06-21] MEDS: FOLIC ACID 1 MG TABLET PO SCH (09:08)
[2019-06-21] MEDS: FENOFIBRATE 160 MG TAB PO SCH (09:08)
[2019-06-21] MEDS: INSULIN -REGULAR HUMAN 50 UNIT/0.5 ML ML SQ SCH ×4 (09:09→22:07)
--- NOTE | 2019-06-21 12:55 | P.PN ---
Subjective Date of Service: 06/20/19 Chief Complaint: Fall, left hip pain Patient has been refusing blood draws and some of his medications. I am told he wanted to leave AMA yesterday. He states his left hip pain was about the same before the fall. He removed his IV line and refused further IV insertion. He also refused IV magnesium replacement yesterday. We are still waiting for a bed for possible transfer to [facility] to be seen by his orthopedic surgeon. Physical Examination - Vital Signs Temperature: 98.3 F Blood Pressure: 108/60 Pulse: 87 Respirations: 16 Pulse Ox (%): 97 - Physical Exam General: Alert, In no apparent distress, Oriented x3 HEENT: Mucous membr. moist/pink Neck: Supple Respiratory: Clear to auscultation bilaterally, Normal air movement Cardiovascular: No edema, Regular rate/rhythm, Normal S1 S2 Gastrointestinal: Normal bowel sounds, Soft and benign, No tenderness Musculoskeletal: No erythema, Other (Left hip joint is tender to palpation.) Integumentary: No rashes Neurological: Other (Nonfocal.) Assessment And Plan - Current Problems (Diagnosis) (1) Fall Current Visit: Yes Status: Acute (2) Hip fracture Current Visit: Yes Status: Acute (3) Acute kidney injury Current Visit: No Status: Acute (4) History of seizure Current Visit: No Status: Acute (5) Urinary retention Current Visit: Yes Status: Acute (6) Obstructive uropathy Current Visit: No Status: Acute - Plan Continue supportive measures. Pain management as needed. Monitor electrolytes and replete. Oral magnesium supplementation if patient refuses IV. Aggressive blood sugar control Retrieve medical records from [facility]. Bedrest for now. Maintained the Keene catheter for urinary retention.
[2019-06-21] MEDS: NA CHLORIDE 0.9% 1,000 ML IV SCH (13:19)
[2019-06-21] MEDS: ATORVASTATIN 20 MG TAB PO SCH (22:06)
[2019-06-21] MEDS: TAMSULOSIN 0.4 MG SR CAP PO SCH (22:06)
[2019-06-21] MEDS: Oxycodone HCl/Acetaminophen 1 TAB TAB PO PRN (22:21)
--- NOTE | 2019-06-21 22:53 | CON ---
Date of Consultation: 06/21/2019 Reason For Consultation: Elevated BUN and creatinine. History Of Present Illness: This is 54-year-old gentleman, well-known to me from a previous admissio n with significant past medical history of hypertension, obstructive uropathy, diabetes, seizure, AUDITOR D, GERD. Patient recently admitted to the hospital with acute kidney injury secondary to obstructive uropathy. Patient was treated, recovered. Upon admission to the hospital, creatinine was 5.7 with hyperkalemia. On discharge, creatinine was down to 1.4. Patient was discharged yesterday, apparentl y found discharged against medical advice, then found in a ditch. Patient brought to the hospital, f ound to have elevated BUN and creatinine. Again, for that reason, patient was admitted. Patient has altered mental status. Upon arrival, creatinine was 1.7. Upon discharge, creatinine 1.4. Keene wa s inserted. Patient had good urine output. Past Medical History: 1.Hypertension. 2.Seizure. 3.Diabetes. 4.COPD. 5.GERD. 6.Hyperlipidemia. 7.Left humeral surgery. 8.Cystitis. Past Surgical History: Left humeral surgery, bilateral hip replacement. Family History: Positive for coronary artery disease. Social History: Previous alcohol. Active smoker. Denies drug use. Review of Systems: Head and Neck: No red eye. No ear pain. GI: Has abdominal pain. : No polyuria. Has urinary retention. 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 Respiratory: No shortness of breath. Cardiovascular: No chest pain. Endocrine: No polydipsia. Skin: No rash. Neuro: Has altered mental status. Musculoskeletal: Generalized fatigue. Medications: Current medications in the hospital include: 1.Atorvastatin. 2.Midodrine. 3.Flomax. 4.Lorazepam. 5.IV fluid, but patient refusing. Physical Examination: Vital Signs: Blood pressure 95/62, pulse of 78. Chest: Clear to auscultation. Heart: S1, S2. Regular. Abdomen: Soft, nontender. Extremities: No edema. Neuro: Nonfocal. Confused. Laboratory Data: Sodium 136, potassium 4, bicarb 27, BUN 36, creatinine 1.7. BNP 178. TSH of 5. Assessment And Plan: 1.Acute kidney injury secondary to obstructive uropathy/poor perfusion. Acute tubular necrosis seco ndary to low blood pressure. We reinforced for the patient the need for IV fluid. We will resume IV fluid. We will continue Keene drainage and resume the Flomax. 2.Hypertension. Currently, blood pressure on the lower side. Hold all blood pressure medication. Continue IV fluid. 3.Altered mental status. We will follow up with primary. STEPHEN Voice ID: [id number] Report ID: [id number]
[2019-06-22] MEDS: Oxycodone HCl/Acetaminophen 1 TAB TAB PO PRN ×3 (01:58→21:17)
[2019-06-22] MEDS: HEPARIN 5000 UNIT/ML 1 ML VIAL SQ SCH ×3 (01:58→16:07)
[2019-06-22] MEDS: Ringers Lactate 1,000 ML IV SCH ×3 (05:00→21:00)
[2019-06-22] MEDS: INSULIN -REGULAR HUMAN 50 UNIT/0.5 ML ML SQ SCH ×4 (07:30→21:20)
[2019-06-22] MEDS: MAGNESIUM OXIDE 400 MG TAB PO SCH ×2 (09:00→21:00)
[2019-06-22] MEDS: NICOTINE 21 MG/PAT TD SCH (09:00)
[2019-06-22] MEDS: CEFTRIAXONE/SWI 1gm 1 GM/10 ML SYR IV SCH (09:00)
[2019-06-22] MEDS: FOLIC ACID 1 MG TABLET PO SCH (09:00)
[2019-06-22] MEDS: FENOFIBRATE 160 MG TAB PO SCH (09:00)
[2019-06-22] MEDS: MIDODRINE HCL 5 MG TABLET PO SCH ×2 (09:00→21:19)
[2019-06-22] MEDS: DULOXETINE 30 MG CAP PO SCH ×2 (09:00→21:18)
[2019-06-22] MEDS: FAMOTIDINE 20 MG TAB PO SCH ×2 (09:00→21:18)
[2019-06-22] MEDS: levETIRAcetam 500 MG TAB PO SCH (09:00)
[2019-06-22] MEDS: NA CHLORIDE 0.9% 1,000 ML IV SCH (10:00)
--- NOTE | 2019-06-22 12:12 | P.PN ---
Subjective Date of Service: 06/22/19 Chief Complaint: Fall, left hip pain Patient has been refusing blood draws and some of his medications. He is now complaining of pain in her left hip and unable to bear weight on it He removed his IV line and refused further IV insertion. He also refused IV magnesium replacement. We are still waiting for a bed for possible transfer to [facility] to be seen by his orthopedic surgeon. Physical Examination - Vital Signs Temperature: 98.4 F Blood Pressure: 108/73 Pulse: 84 Respirations: 18 Pulse Ox (%): 100 - Physical Exam General: Alert, In no apparent distress, Oriented x3 HEENT: Atraumatic Cardiovascular: No edema, Regular rate/rhythm, Normal S1 S2 Gastrointestinal: Soft and benign, No tenderness Musculoskeletal: Other (No limited ROM) Integumentary: Rash(es) (Multiple hypopigmented lesions noted on both upper and lower limbs.) Neurological: Other (Nonfocal.) Assessment And Plan - Current Problems (Diagnosis) (1) Fall Current Visit: Yes Status: Acute (2) Hip fracture Current Visit: Yes Status: Acute (3) Acute kidney injury Current Visit: No Status: Acute (4) History of seizure Current Visit: No Status: Acute (5) Urinary retention Current Visit: Yes Status: Acute (6) Obstructive uropathy Current Visit: No Status: Acute - Plan Patient refuses labs and IV fluid. He refused to take all his medications this morning. Pain management as needed. Monitor electrolytes and replete if patient will cooperate Insulin sliding scale for glucose management. Waiting for medical records from [facility] to be faxed here for review. Maintain the Keene catheter for history of urinary retention.
--- NOTE | 2019-06-22 12:40 | PN ---
Date of Progress Note: 06/22/2019 Subjective: Patient was admitted with acute kidney injury. After fall, patient poor compliant. Pat ient refused lab, refused IV fluid, still has Keene. Physical Examination: Vital Signs: When I saw the patient, blood pressure 108/73, pulse of 83. Chest: Clear to auscultation. Heart: S1, S2. Regular. Abdomen: Soft, nontender. Extremities: No edema. Keene in place. Neurologic: Alert. No focal. Laboratory Data: There is no lab data new. Last lab data on the and H .11/25. Sodium 136, potassium 4, bicarb 27, BUN 36, creatinine 1.78. Current Medications: The patient on, patient refused IV fluid, ceftriaxone not given, midodrine 5 b. i.d., albuterol, Flomax, atorvastatin, Keppra. Assessment And Plan: 1.Acute kidney injury secondary to prerenal. Patient refused intravenous fluid. Refused any treatm ent. We will watch with the Primary. 2.Obstructive uropathy. Continue Flomax. 3.Fall as by Primary. 4.Necrosis hip as by Primary and Ortho. MA/MODL Voice ID: [id number] Report ID: [id number]
[2019-06-22] MEDS ORDERED: GLUCAGON 1 MG/VIAL IM PRN (20:37)
[2019-06-22] MEDS ORDERED: D50W 25 GM/50 ML SYRINGE/VIAL IV PRN (20:37)
[2019-06-22] MEDS ORDERED: INSULIN 70/30 100 UNITS/ML SQ ONE (20:39)
[2019-06-22] MEDS: ATORVASTATIN 20 MG TAB PO SCH (21:18)
[2019-06-22] MEDS: TAMSULOSIN 0.4 MG SR CAP PO SCH (21:20)
[2019-06-23] MEDS: Oxycodone HCl/Acetaminophen 1 TAB TAB PO PRN ×2 (01:20→20:51)
[2019-06-23] MEDS: HEPARIN 5000 UNIT/ML 1 ML VIAL SQ SCH ×3 (01:20→16:25)
[2019-06-23] MEDS: Ringers Lactate 1,000 ML IV SCH ×2 (05:00→12:23)
[2019-06-23] MEDS: NA CHLORIDE 0.9% 1,000 ML IV SCH (06:00)
[2019-06-23] MEDS: INSULIN -REGULAR HUMAN 50 UNIT/0.5 ML ML SQ SCH ×4 (07:30→21:50)
[2019-06-23] MEDS ORDERED: D50W 25 GM/50 ML SYRINGE/VIAL IV PRN (07:48)
[2019-06-23] MEDS ORDERED: GLUCAGON 1 MG/VIAL IM PRN (07:48)
[2019-06-23] MEDS ORDERED: INSULIN GLARGINE 100 UNITS/ML SQ ONE ×2 (07:49→19:00)
[2019-06-23] MEDS: FENOFIBRATE 160 MG TAB PO SCH (08:17)
[2019-06-23] MEDS: FOLIC ACID 1 MG TABLET PO SCH (08:17)
[2019-06-23] MEDS: NICOTINE 21 MG/PAT TD SCH (08:17)
[2019-06-23] MEDS: MAGNESIUM OXIDE 400 MG TAB PO SCH ×2 (08:17→20:52)
[2019-06-23] MEDS: MIDODRINE HCL 5 MG TABLET PO SCH ×2 (08:17→20:50)
[2019-06-23] MEDS: levETIRAcetam 500 MG TAB PO SCH (08:17)
[2019-06-23] MEDS: DULOXETINE 30 MG CAP PO SCH ×2 (08:17→20:50)
[2019-06-23] MEDS: FAMOTIDINE 20 MG TAB PO SCH ×2 (08:17→20:51)
[2019-06-23] MEDS: CEFTRIAXONE/SWI 1gm 1 GM/10 ML SYR IV SCH (08:17)
--- NOTE | 2019-06-23 13:53 | PN ---
Date of Progress Note: 06/23/2019 Subjective: The patient is still refusing any lab, refusing IV fluid. Physical Examination: Vital Signs: Blood pressure 108/75, pulse of 75, afebrile. Chest: Clear to auscultation. Heart: S1, S2. Regular. Abdomen: Soft, nontender. Extremities: Tenderness on the hip area. Neurologic: Alert. No focal. Laboratory Data: No recent lab. Current Medications: The patient on, include IV fluid, not taking; midodrine 5 mg; ceftriaxone; hepa rin; fenofibrate; atorvastatin; Flomax; lorazepam. Assessment And Plan: 1.Acute kidney injury, secondary to obstructive uropathy. Unfortunately, I do not have any lab data . Continue Flomax. Continue Keene to gravity drain. We discontinue fenofibrate. 2.Hypertension, control optimal. 3.Nonischemic necrosis, hip. We will follow up with the primary. Plan for transfer. 4.Diabetes, as by primary. THEODORE/DAVIN Voice ID: [id number] Report ID: [id number]
--- NOTE | 2019-06-23 14:03 | P.PN ---
Subjective Date of Service: 06/23/19 Chief Complaint: Fall, left hip pain Patient has been refusing blood draws and some of his medications. He is complaining of pain in the left hip and unable to bear weight on it. He removed his IV line and refused further IV insertion. We are still waiting for a bed for possible transfer to [facility] to be seen by his orthopedic surgeon. Physical Examination - Vital Signs Temperature: 97.1 F Blood Pressure: 108/75 Pulse: 75 Respirations: 15 Pulse Ox (%): 97 - Physical Exam General: In no apparent distress, Oriented x3 HEENT: Mucous membr. moist/pink Neck: Supple Respiratory: Clear to auscultation bilaterally, Normal air movement Cardiovascular: No edema Capillary refill: <2 Seconds Gastrointestinal: Normal bowel sounds, Soft and benign Musculoskeletal: Other (ROM about the hip joints are not decreased.) Integumentary: No rashes Neurological: Other (Nonfocal.) Assessment And Plan - Current Problems (Diagnosis) (1) Fall Current Visit: Yes Status: Acute (2) Hip fracture Current Visit: Yes Status: Acute (3) Acute kidney injury Current Visit: No Status: Acute (4) History of seizure Current Visit: No Status: Acute (5) Urinary retention Current Visit: Yes Status: Acute (6) Obstructive uropathy Current Visit: No Status: Acute - Plan Patient refuses labs and IV fluid. He is also refusing to take his medications and sometimes refuse glucose checks Pain management as needed. Monitor electrolytes and replete if patient will cooperate Insulin sliding scale for glucose management. Medical records from [facility] reviewed. Patient had his right prosthesis placed by Dr. Covarrubias. Awaiting Physician to physician sign out regarding patient. Radiology images reviewed with Dr. Dunbar. Patient has fracture of the head of the left femur. Head of the left femur also has avascular necrosis. Maintained the Keene catheter for history of urinary retention.
[2019-06-23] MEDS: HOME MED 1 EA UNK (Metformin Hcl [Glucophage] 1,000 MG) PO SCH (16:17)
[2019-06-23 16:38] LABS: Absolute Lymphocytes (CBC) 0.8 K/uL (0.7-4.9); Basophils % 0.7 % (0-1.3); Hematocrit 24.9 % (39.6-49.0); Lymphocytes % 10.6 % (15.3-44.8); MPV 8.6 fL (7.6-11.3); RBC Red Blood Cell Count 2.76 M/uL (4.33-5.43)
[2019-06-23] MEDS ORDERED: INSULIN 70/30 100 UNITS/ML SQ ONE (20:39)
[2019-06-23] MEDS: TAMSULOSIN 0.4 MG SR CAP PO SCH (20:51)
[2019-06-23] MEDS: ATORVASTATIN 20 MG TAB PO SCH (20:51)
[2019-06-24] MEDS: NA CHLORIDE 0.9% 1,000 ML IV SCH ×4 (02:00→20:00)
[2019-06-24] MEDS: HEPARIN 5000 UNIT/ML 1 ML VIAL SQ SCH ×3 (03:13→17:23)
[2019-06-24] MEDS ORDERED: DIPHENHYDRAMINE 50 MG/ML VIAL IV ONE (05:03)
[2019-06-24 05:49] LABS: Absolute Lymphocytes (CBC) 2.1 K/uL (0.7-4.9); Basophils % 0.8 % (0-1.3); Hematocrit 25.5 % (39.6-49.0); Lymphocytes % 19.3 % (15.3-44.8); MPV 8.5 fL (7.6-11.3); RBC Red Blood Cell Count 2.96 M/uL (4.33-5.43)
[2019-06-24 06:03] LABS: Potassium 4.7 mmol/L (3.5-5.1)
[2019-06-24] MEDS: HOME MED 1 EA UNK (Metformin Hcl [Glucophage] 1,000 MG) PO SCH (07:30)
[2019-06-24] MEDS ORDERED: METFORMIN HCL 500 MG TAB PO SCH (08:00)
[2019-06-24] MEDS: DULOXETINE 30 MG CAP PO SCH ×2 (08:46→21:42)
[2019-06-24] MEDS: FAMOTIDINE 20 MG TAB PO SCH ×2 (08:46→21:42)
[2019-06-24] MEDS: MAGNESIUM OXIDE 400 MG TAB PO SCH ×2 (08:47→21:41)
[2019-06-24] MEDS: FOLIC ACID 1 MG TABLET PO SCH (08:47)
[2019-06-24] MEDS: MIDODRINE HCL 5 MG TABLET PO SCH ×2 (08:47→21:40)
[2019-06-24] MEDS: levETIRAcetam 500 MG TAB PO SCH (08:47)
[2019-06-24] MEDS: CEFTRIAXONE/SWI 1gm 1 GM/10 ML SYR IV SCH (08:47)
[2019-06-24] MEDS: INSULIN -REGULAR HUMAN 50 UNIT/0.5 ML ML SQ SCH ×4 (08:48→21:40)
[2019-06-24] MEDS: NICOTINE 21 MG/PAT TD SCH (09:00)
--- NOTE | 2019-06-24 13:05 | P.PN ---
Subjective Date of Service: 06/24/19 Chief Complaint: Fall, left hip pain Subjective a 54 Y/o man with PMhx of DM, HTN, seizure disorder brought for after he found unresponsive pt found unresponsive Today Cr trending up , BS still elevated graham removed as per pt request will order renal US HX of polyuria, will increase D5W Past Medical/Surgical History Diabetic: Yes -: DM-IDDM -: Seizure -: HTN -: HLD -: COPD -: GERD -: L humerous sx with Titanium marjorie placement -: L hip and R hip sx - Family History Father Medical History: Heart disease, Other (see notes) Notes: from [place] - Social History Smoking Status: Unknown if ever smoked Alcohol use: Yes CD- Drugs: No Caffeine use: Yes general: alert, not oriented AAOX1-2 NEck: supple, No elevated JVD hear: RRR, normal S1,2 no murmur or rub Chest: CTAB, no rlaes or wheezes Abdomen: Scaphoid, soft, NT Extremities No edema skin: multiple lesion all over the body A/P NELSON due to dehydration and obstructive uropathy Cont IVF refused graham will order us DM non compliant with meds on insulin Hx of seizure disorder on Keppra Physical Examination - Vital Signs Temperature: 97.6 F Blood Pressure: 93/66 Pulse: 107 Respirations: 18 Pulse Ox (%): 100
--- NOTE | 2019-06-24 13:14 | P.PN ---
Subjective Date of Service: 06/24/19 Chief Complaint: Fall, left hip pain Patient has been refusing blood draws and his medications. I spoke to patient's orthopedic surgeon Dr. Roberts hole stated patient has left hip fracture repair should be an elective procedure and not emergent and there is no need to transfer. Patient was seen ambulating to and from bathroom with no issues. Noted patient had his Keene catheter removed. Nurse reports he has been voiding without complain. He agreed to do blood work and blood sugar checks when he heard he no longer has to transfered. He was informed he needs to follow with Dr. Roberts as an outpatient. At this point, his blood sugar was severely elevated to 900. I recommended IV insulin, IV hydration and transfer to ICU for close monitoring. Patient refused IV insertion. His blood sugar was managed with subcutaneous regular insulin and Lantus insulin. His current blood sugar has improved to 200s. Noted his serum creatinine has trended up. Case discussed with nephrology-Dr. Loyd. Patient cannot be on metformin. He declined SNF rehab placement. Physical Examination - Vital Signs Temperature: 97.6 F Blood Pressure: 93/66 Pulse: 107 Respirations: 18 Pulse Ox (%): 100 - Physical Exam General: Alert, In no apparent distress, Oriented x3 HEENT: Mucous membr. moist/pink Neck: Supple Respiratory: Clear to auscultation bilaterally, Normal air movement Cardiovascular: No edema, Regular rate/rhythm, Normal S1 S2 Gastrointestinal: Normal bowel sounds, Soft and benign, No tenderness Musculoskeletal: No swelling, No erythema Integumentary: No rashes Neurological: Other (Nonfocal) Assessment And Plan - Current Problems (Diagnosis) (1) Fall Current Visit: Yes Status: Acute (2) Hip fracture Current Visit: Yes Status: Acute (3) Acute kidney injury Current Visit: No Status: Acute (4) History of seizure Current Visit: No Status: Acute (5) Urinary retention Current Visit: Yes Status: Acute (6) Obstructive uropathy Current Visit: No Status: Acute - Plan IV hydration Bladder scan and reinsert Keene catheter if urinary retention and the patient will cooperate. Pain management as needed. Monitor electrolytes, renal function and replete electrolytes if patient will cooperate. Insulin sliding scale for glucose management. Trial of glipizide and Januvia. He is high risk for noncompliance with insulin therapy. .
[2019-06-24] MEDS: glipiZIDE 5 MG TAB PO SCH (13:50)
[2019-06-24] MEDS: SITAGLIPTIN PHOS 100 MG TAB PO SCH (13:50)
--- NOTE | 2019-06-24 16:09 | RAD REPORT ---
EXAM DESCRIPTION: US - Renal Ultrasound-Complete - 06/24/2019 3:54 pm CLINICAL HISTORY: . Acute renal insufficiency COMPARISON: June 13, 2019 FINDINGS: The right kidney measures 11 cm with a normal echotexture. Mild hydronephrosis unchanged The left kidney measures 11 cm with a normal echotexture. Mild to moderate hydronephrosis has mildly progressed The bladder is mildly distended. Bladder wall is thickened IMPRESSION: Mild right hydronephrosis unchanged [id number] left hydronephrosis mildly progressed.
[2019-06-24] MEDS: Oxycodone HCl/Acetaminophen 1 TAB TAB PO PRN (18:43)
[2019-06-24] MEDS: ATORVASTATIN 20 MG TAB PO SCH (21:38)
[2019-06-24] MEDS: TAMSULOSIN 0.4 MG SR CAP PO SCH (21:40)
[2019-06-24] MEDS: LORAZEPAM 0.5 MG TABLET PO PRN (21:53)
[2019-06-25] MEDS: Oxycodone HCl/Acetaminophen 1 TAB TAB PO PRN ×3 (00:21→10:23)
[2019-06-25] MEDS: HEPARIN 5000 UNIT/ML 1 ML VIAL SQ SCH ×3 (00:21→16:13)
[2019-06-25] MEDS: NA CHLORIDE 0.9% 1,000 ML IV SCH ×3 (04:00→20:00)
[2019-06-25 08:00] LABS: Potassium 6.4 mmol/L (3.5-5.1)
[2019-06-25] MEDS: MAGNESIUM OXIDE 400 MG TAB PO SCH ×2 (08:21→20:32)
[2019-06-25] MEDS: DULOXETINE 30 MG CAP PO SCH ×2 (08:21→20:31)
[2019-06-25] MEDS: FAMOTIDINE 20 MG TAB PO SCH ×2 (08:21→20:33)
[2019-06-25] MEDS: INSULIN -REGULAR HUMAN 50 UNIT/0.5 ML ML SQ SCH ×4 (08:22→20:32)
[2019-06-25] MEDS: glipiZIDE 5 MG TAB PO SCH (08:22)
[2019-06-25] MEDS: SITAGLIPTIN PHOS 100 MG TAB PO SCH (08:22)
[2019-06-25] MEDS: MIDODRINE HCL 5 MG TABLET PO SCH ×2 (08:22→20:35)
[2019-06-25] MEDS: levETIRAcetam 500 MG TAB PO SCH (08:22)
[2019-06-25] MEDS: FOLIC ACID 1 MG TABLET PO SCH (08:22)
[2019-06-25] MEDS: CEFTRIAXONE/SWI 1gm 1 GM/10 ML SYR IV SCH (08:23)
[2019-06-25] MEDS: NICOTINE 21 MG/PAT TD SCH (08:23)
[2019-06-25] MEDS ORDERED: GLUCAGON 1 MG/VIAL IM PRN (08:34)
[2019-06-25] MEDS ORDERED: D50W 25 GM/50 ML SYRINGE/VIAL IV PRN (08:34)
[2019-06-25] MEDS ORDERED: haloperidoL 5 MG TAB PO ONE (10:00)
[2019-06-25] MEDS ORDERED: SOD POLYSTYREN SUL 15 GM/60 ML UCUP PO ONE (10:00)
[2019-06-25] MEDS ORDERED: INSULIN -REGULAR HUMAN 50 UNIT/0.5 ML ML SQ ONE (10:05)
[2019-06-25] MEDS: INSULIN GLARGINE 100 UNITS/ML SQ SCH (10:23)
[2019-06-25] MEDS ORDERED: INSULIN -REGULAR HUMAN 50 UNIT/0.5 ML ML IV ONE (10:30)
[2019-06-25] MEDS ORDERED: haloperidoL 5 MG TAB PO SCH (11:00)
[2019-06-25] MEDS ORDERED: NA CHLORIDE 0.9% 1,000 ML IV SCH (11:00)
[2019-06-25] MEDS ORDERED: FUROSEMIDE 40 MG/4 ML VIAL IV ONE (11:00)
[2019-06-25] MEDS ORDERED: ALBUTEROL 2.5 MG/3 ML NEB SOL NEB ONE (11:00)
--- NOTE | 2019-06-25 11:45 | P.PN ---
Subjective Date of Service: 06/25/19 Chief Complaint: Fall, left hip pain Noted patient's potassium level is up to 6.4. Creatinine is trending up. His blood sugar is up to 533. Patient seen and evaluated. He is alert and oriented x3 but deemed to have poor insight with regards to his medical condition. Patient keeps on refusing treatment. I discussed his risk of cardiac arrest and with hyperkalemia. I discussed with him about the cause of the hyperkalemia being obstructive uropathy, hydronephrosis and the need for Keene catheter to be reinserted to relieve the obstruction. He was retaining up to 700 ml of urine in his bladder as of yesterday. Patient keeps on refusing Keene catheter reinsertion. He also refused IV insertion. All he wants to do is to go home. He states he feels fine and all we are doing is bordering him. I discussed with him about the need to discuss his medical condition with his other family members. Patient agreed. I called his sister Ms. Maritza Hand and updated her on patient's current medical condition and his refusal of treatment. She offered to have her chat with him and asked him to cooperate with treatment. He has been ambulating but with a limp. Physical Examination - Vital Signs Temperature: 97.6 F Blood Pressure: 108/64 Pulse: 74 Respirations: 18 Pulse Ox (%): 99 - Physical Exam General: Alert, In no apparent distress Respiratory: Clear to auscultation bilaterally, Normal air movement Cardiovascular: Regular rate/rhythm, Normal S1 S2 Gastrointestinal: Normal bowel sounds, Soft and benign, Non-distended Musculoskeletal: No swelling Neurological: Normal speech, Normal strength at 5/5 x4 extr, Other (Oriented x4. ) Assessment And Plan - Current Problems (Diagnosis) (1) Fall Current Visit: Yes Status: Acute (2) Hip fracture Current Visit: Yes Status: Acute (3) Acute kidney injury Current Visit: No Status: Acute (4) History of seizure Current Visit: No Status: Acute (5) Urinary retention Current Visit: Yes Status: Acute (6) Obstructive uropathy Current Visit: No Status: Acute (7) Hyperkalemia Current Visit: Yes Status: Acute (8) Acute renal failure Current Visit: Yes Status: Acute - Plan I showed patient is labs result for him to understand his potassium and Gluocse levels are critical and need to addressed immediately. oral Kayexalate, Albuterol nebs have been ordered. Patient given regular insulin to treat hyperglycemia. Lantus insulin also ordered to be given. Keene catheter insertion ordered. Pre-medicate with pain meds before insertion. Trial of oral haldol. Family updated on patient's refusal of treatment. Patient has been seen by nephrology. IV fluid also ordered Pain management as needed. Monitor electrolytes, renal function and replete electrolytes if patient will cooperate. Insulin sliding scale for glucose management. He is high risk for noncompliance with insulin therapy.
--- NOTE | 2019-06-25 12:27 | PN ---
Date of Progress Note: 06/25/2019 Subjective: Patient was admitted with acute kidney injury. Patient been for the last few days, refusing any treatment, refusing IV fluid, refusing Keene insertion. Patient found to have obstructive uropathy. Physical Examination: Vital Signs: Blood pressure 108/64, pulse of 74. Chest: Clear to auscultation. Heart: S1, S2 regular. Abdomen: Soft, nontender, suprapubic dullness. Extremities: No edema. Neurologic: Alert and oriented. No focal. Laboratory Data: WBC 11, H and H 8.8/25.5, platelets 278. Sodium 121, potassium 6.4, bicarb 24, BUN 59, creatinine 2.5, calcium 8.3. Assessment And Plan: 1. Acute kidney injury multifactorial secondary to obstructive uropathy, poor perfusion acute tubular necrosis, dehydration prerenal secondary to poor intake and Obstructive Uropathy , complicated with hyperkalemia and hyponatremia. I had long discussion with the patient in the presence of the nurses regarding the need to insert Keene, start aggressive hydration and treat his hyperkalemia. Patient is still refusing any Keene, refusing any IV fluid. I explained risks, benefits, and alternative including cardiac arrest secondary to hyperkalemia patient is still refusing. We discussed with the hospitalist regarding patient refusal treatment. 2. We will monitor. I am going to give the patient albuterol, IV fluid, and reinforce to insert a Keene if patient allows. 3. Hyperkalemia secondary to renal failure. Patient is still refusing any treatment. We will go ahead and give albuterol, insulin, try to continue the hydration, then bolus then Lasix with Kayexalate. 4. Hyponatremia secondary to renal failure/depletional. Patient need IV fluid, but still refusing. Patient again refusing any treatment. Discussed with the hospitalist. Time Spent: 45 minutes. STEPHEN Voice ID: [id number] Report ID: [id number] KATHYA
--- NOTE | 2019-06-25 14:03 | P.PN ---
Date of Service: 06/25/19 Upon lengthy discussion with the patient, I suspect patient may be lacking full mental capacity to understand the depth of his medical problems, treatment processes and complications that may arise from refusal of treatment. All he wants is to be kept comfortable. I called his sister who is also listed as the next of kin and discussed patient' s poor insight. I discussed the option of hospice which is probably the best option at this time given that patient seeks comfort rather than active treatment. Also he has multiple medical problems including obstructive uropathy , electrolyte imbalances and poorly controlled diabetes that will require his long-term cooperation for successful treatment, which he is lacking. Patient's sister brought up the option of sedating him for needed procedures including graham catheter given his lack of capacity but that will only be a temporary fix. He will wake up and would want the graham catheter out or remove it himself , refuse blood sugar checks and insulin therapy, and his medications. She mentioned she will talk to him 1 more time to cooperate with treatment, otherwise would be considering hospice evaluation. Case was discussed with psychiatrist Dr. Choe who agrees patient may lack full mental capacity and may have to fall on next kin for medical decisions. Dr. Choe will see and evaluate him on Thursday. Patient took the Kayexalate, refused albuterol nebs, refused IV insertion, and refusing blood glucose checks. Repeat BMP is ordered to follow potassium level.
[2019-06-25 16:18] LABS: Potassium 5.6 mmol/L (3.5-5.1)
[2019-06-25] MEDS: TAMSULOSIN 0.4 MG SR CAP PO SCH (20:32)
[2019-06-25] MEDS: ATORVASTATIN 20 MG TAB PO SCH (20:32)
[2019-06-26] MEDS: Oxycodone HCl/Acetaminophen 1 TAB TAB PO PRN ×2 (00:06→22:21)
[2019-06-26] MEDS: LORAZEPAM 0.5 MG TABLET PO PRN (00:06)
[2019-06-26] MEDS: HEPARIN 5000 UNIT/ML 1 ML VIAL SQ SCH ×2 (01:00→08:55)
[2019-06-26] MEDS: NA CHLORIDE 0.9% 1,000 ML IV SCH ×3 (04:00→20:00)
[2019-06-26] MEDS: CEFTRIAXONE/SWI 1gm 1 GM/10 ML SYR IV SCH (08:27)
[2019-06-26] MEDS: INSULIN -REGULAR HUMAN 50 UNIT/0.5 ML ML SQ SCH ×4 (08:52→22:22)
[2019-06-26] MEDS: SITAGLIPTIN PHOS 100 MG TAB PO SCH (08:53)
[2019-06-26] MEDS: MIDODRINE HCL 5 MG TABLET PO SCH ×2 (08:53→22:23)
[2019-06-26] MEDS: levETIRAcetam 500 MG TAB PO SCH (08:53)
[2019-06-26] MEDS: FAMOTIDINE 20 MG TAB PO SCH ×2 (08:53→22:22)
[2019-06-26] MEDS: INSULIN GLARGINE 100 UNITS/ML SQ SCH (08:53)
[2019-06-26] MEDS: DULOXETINE 30 MG CAP PO SCH ×2 (08:53→22:22)
[2019-06-26] MEDS: MAGNESIUM OXIDE 400 MG TAB PO SCH ×2 (08:54→22:22)
[2019-06-26] MEDS: NICOTINE 21 MG/PAT TD SCH (08:55)
[2019-06-26] MEDS: FOLIC ACID 1 MG TABLET PO SCH (08:57)
--- NOTE | 2019-06-26 11:55 | P.PN ---
Subjective Date of Service: 06/26/19 Chief Complaint: Fall, left hip pain Patient keeps refusing his medications. He has refused Keene catheter insertion. Potassium level is down to 5.6. No significant changes in his creatinine. He denies any fullness in the abdomen or bladder. Physical Examination - Vital Signs Temperature: 97.0 F Blood Pressure: 112/67 Pulse: 80 Respirations: 16 Pulse Ox (%): 94 - Physical Exam General: Oriented x3, Other (Awake, uncooperative.) Respiratory: Clear to auscultation bilaterally, Normal air movement Cardiovascular: No edema Gastrointestinal: Normal bowel sounds, Soft and benign, Non-distended, No tenderness Musculoskeletal: No swelling Neurological: Other (Nonfocal.) Assessment And Plan - Current Problems (Diagnosis) (1) Fall Status: Acute (2) Hip fracture Status: Acute (3) Acute kidney injury Status: Acute (4) History of seizure Status: Acute (5) Urinary retention Status: Acute (6) Obstructive uropathy Status: Acute (7) Hyperkalemia Status: Acute (8) Acute renal failure Status: Acute - Plan Patient has been refusing medical treatment. Keene catheter insertion is needed given hydronephrosis if patient will cooperate. Hyponatremia could be a spurious reading related to hyperglycemia. Nephrology is following. Patient refused IV insertion and IV Fluid. Pain management as needed. Monitor electrolytes, renal function and replete electrolytes if patient will cooperate. Insulin sliding scale and Lantus for glucose management. I am not able to titrate Lantus due to patient's noncompliance with blood sugar checks. Continue Tamiflu for urinary obstruction. Repeat Kayexalate for hyperkalemia. Intermittent bladder scan to assess for urinary retention. Psychiatry consult tomorrow to evaluate for capacity to make medical decisions.
[2019-06-26] MEDS ORDERED: SOD POLYSTYREN SUL 15 GM/60 ML UCUP PO ONE (13:00)
--- NOTE | 2019-06-26 14:47 | PN ---
Date of Progress Note: 06/26/2019 Subjective: The patient was admitted with acute kidney injury secondary to obstructive uropathy, complicated with hyperkalemia. Patient refused any treatment or intervention. Refused Keene or IV fluid, given treatment for his hyperkalemia. Physical Examination: Vital Signs: Blood pressure 114/73, pulse of 68, afebrile. Chest: Clear to auscultation. Heart: S1, S2, regular. Abdomen: Soft nontender. Dullness in the suprapubic area. Extremities: No edema. Laboratory Data: WBC 11, H and H 8.8/25.5, platelets 278. Sodium 129, potassium 5.6, bicarb 27, BUN 60, creatinine 2.4, calcium of 8.9, blood sugar above 300 and 400. Assessment And Plan: 1. Acute kidney injury secondary to obstructive uropathy, prerenal, secondary to diuresis, worsening. The patient refused any intervention. I had long discussion with the patient regarding the need for IV fluid, the need for Keene. Patient still refused. Understands risks, benefits, alternative. 2. Hyperkalemia. Patient refused any treatment. Probably, it is secondary to renal failure. We will continue to monitor. 3. hypo NA secondary to hyperglycemia. The patient refused any treatment. We will follow up. 4. Obstructive uropathy. The patient refused Keene and medication. Continue Flomax if the patient accepted. THEODORE/DAVIN Voice ID: [id number] Report ID: [id number] MTDD
[2019-06-26] MEDS: ATORVASTATIN 20 MG TAB PO SCH (22:21)
[2019-06-26] MEDS: TAMSULOSIN 0.4 MG SR CAP PO SCH (22:23)
[2019-06-27] MEDS: NA CHLORIDE 0.9% 1,000 ML IV SCH ×4 (04:00→20:00)
[2019-06-27 04:56] LABS: Potassium 4.8 mmol/L (3.5-5.1)
[2019-06-27] MEDS: INSULIN -REGULAR HUMAN 50 UNIT/0.5 ML ML SQ SCH ×4 (05:40→20:54)
[2019-06-27] MEDS: Oxycodone HCl/Acetaminophen 1 TAB TAB PO PRN ×2 (05:46→20:56)
[2019-06-27] MEDS: levETIRAcetam 500 MG TAB PO SCH (08:36)
[2019-06-27] MEDS: FOLIC ACID 1 MG TABLET PO SCH (08:37)
[2019-06-27] MEDS: MIDODRINE HCL 5 MG TABLET PO SCH ×2 (08:37→20:55)
[2019-06-27] MEDS: FAMOTIDINE 20 MG TAB PO SCH ×2 (08:37→20:55)
[2019-06-27] MEDS: SITAGLIPTIN PHOS 100 MG TAB PO SCH (08:37)
[2019-06-27] MEDS: MAGNESIUM OXIDE 400 MG TAB PO SCH ×2 (08:38→20:55)
[2019-06-27] MEDS: DULOXETINE 30 MG CAP PO SCH ×2 (08:38→20:55)
[2019-06-27] MEDS: NICOTINE 21 MG/PAT TD SCH (08:38)
[2019-06-27] MEDS: INSULIN GLARGINE 100 UNITS/ML SQ SCH (08:39)
--- NOTE | 2019-06-27 13:25 | P.PN ---
Subjective Date of Service: 06/27/19 Primary Care Provider: none Chief Complaint: Fall, left hip pain Subjective: Improving, Doing well Physical Examination - Vital Signs Temperature: 97.3 F Blood Pressure: 122/71 Pulse: 80 Respirations: 16 Pulse Ox (%): 100 - Physical Exam General: Alert, In no apparent distress, Cooperative HEENT: Atraumatic Neck: Supple Respiratory: Clear to auscultation bilaterally, Normal air movement Cardiovascular: Normal pulses, Regular rate/rhythm Gastrointestinal: Normal bowel sounds, Soft and benign, Non-distended Neurological: Normal speech, Normal strength at 5/5 x4 extr, Normal tone, Normal affect - Studies Medications List Reviewed: Yes Assessment & Plan Discharge Plan: Home Plan to discharge in: 24 Hours Physician Review Additional Text: Impression: 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 AVN findings are present in the left femoral head with multiple acute fracture lines. Patient is ambulating. Fall precautions in place. No intervention recommended at this time. This was discuss with previous hospitalists an orthopedics. Patient will need follow up with orthopedics to further address. Discuss with patient about plan of care. Patient considering [facility] placement versus home with home health or with hospice. Will have psychiatry evaluate patient to determine whether he is medically capable to make his own decisions. Suspect underlying mental illness. Acute on chronic renal failure stage 4: Need to continue with monitoring of strict input and output. Will discuss with nephrology to determine when patient can be discharge. 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 Patient will require strict regimen. Polydipsia: Need to monitor closely. Obstructive uropathy: Spoke with Urology. No intervention needed at this time. Continue Flomax. Patient declines Keene catheter. Time Spent Managing Pts Care (In Minutes): 55
[2019-06-27] MEDS: TAMSULOSIN 0.4 MG SR CAP PO SCH (20:55)
[2019-06-27] MEDS: ATORVASTATIN 20 MG TAB PO SCH (20:55)
--- NOTE | 2019-06-27 21:06 | PN ---
Date of Progress Note: 06/27/2019 Chief Complaint: Acute kidney injury secondary to obstructive uropathy, complicated with severe hyperkalemia. History Of Present Illness: Patient refused any interventional treatment, refused Keene catheter and IV fluids. The patient refused treatment for hyperkalemia. Potassium level was 5.6. Patient was found to have sodium up to 129. The patient agreed to have Flomax for treatment of obstructive uropathy. Review of Systems: Denies complaints. Physical Examination: Lungs: Clear to auscultation bilaterally. Heart: S1, S2. Abdomen: Soft, benign. Extremities: Slight edema. Laboratory Data: Hemoglobin 8.9, WBC 11,000, platelet count 278,000. Sodium 129, potassium 4.8, chloride 95, CO2 27, BUN 59, creatinine 2.63, glucose 450. Impression And Plan: 1. Creatinine level is fluctuating. On June 19, it was 1.78 and due to obstructive uropathy, it has elevated up to 2.63. Renal function has declined. Patient though has uncontrolled diabetes, which may be contributory to prerenal azotemia. Patient refused IV fluids. 2. Hyponatremia. Corrected sodium is in acceptable range. Patient has severe hyperglycemia, which is contributory to the result of sodium 129. 3. Hyperkalemia, resolved. Continue low-potassium diet. 4. Obstructive uropathy. The patient receives treatments, although he agreed to have Flomax. Continue Flomax. Adjust the dose accordingly. I spent total 36 min including 25 min to coordinate care plan. ANGELIA/DAVIN Voice ID: [id number] Report ID: [id number] [id number]
[2019-06-28 05:10] LABS: Potassium 4.8 mmol/L (3.5-5.1)
[2019-06-28] MEDS: Oxycodone HCl/Acetaminophen 1 TAB TAB PO PRN ×2 (05:26→11:08)
[2019-06-28] MEDS: NA CHLORIDE 0.9% 1,000 ML IV SCH (05:27)
[2019-06-28] MEDS: INSULIN -REGULAR HUMAN 50 UNIT/0.5 ML ML SQ SCH ×2 (07:30→13:11)
[2019-06-28] MEDS: INSULIN GLARGINE 100 UNITS/ML SQ SCH (08:45)
[2019-06-28] MEDS: SITAGLIPTIN PHOS 100 MG TAB PO SCH (08:46)
[2019-06-28] MEDS: GABAPENTIN 300 MG CAP PO SCH ×2 (08:46→13:06)
[2019-06-28] MEDS: levETIRAcetam 500 MG TAB PO SCH (08:46)
[2019-06-28] MEDS: FOLIC ACID 1 MG TABLET PO SCH (08:46)
[2019-06-28] MEDS: FAMOTIDINE 20 MG TAB PO SCH (08:47)
[2019-06-28] MEDS: DULOXETINE 30 MG CAP PO SCH (08:47)
[2019-06-28] MEDS: MIDODRINE HCL 5 MG TABLET PO SCH (08:47)
[2019-06-28] MEDS: NICOTINE 21 MG/PAT TD SCH (08:49)
[2019-06-28] MEDS: MAGNESIUM OXIDE 400 MG TAB PO SCH (08:49)
--- NOTE | 2019-06-28 08:55 | P.DS ---
Admission Date: 06/20/19 Discharge Date: 06/28/19 Primary Care Provider: none Disposition: DC HOME/HOME HEALTH CARE Discharge Condition: GOOD Reason for Admission: Fall, left hip pain Consultations: Urology-Dr. Giles Orthopedics-Dr. Robledo Nephrology-Dr. Lux PSYC-Dr. Hernandez Procedures: Xray hip: FINDINGS: Compression screw and intramedullary marjorie have been placed into the left femur Areas of lucency and sclerosis within the femoral head and neck indicate avascular necrosis. No gross fracture or dislocation seen. Osteoporosis. CT Scan: FINDINGS: There is a transcervical fixation nail in the proximal left femur with intramedullary marjorie. There is patchy sclerosis within multiple areas of abnormal lucency left femoral head and neck due to remote trauma. There is a superimposed acute partially impacted fracture of the left femoral head. There is no dislocation. No hip effusion. The included portions of the left hemipelvis appear intact. The bladder is thickened. There is intrabladder air due to Keene catheterization. Normal prostate size. Prostate contains dystrophic calcification. Large amount of fecal loading within the rectum. Nonenlarged left inguinal lymph nodes. IMPRESSION: 1. Acute partially impacted complex left femoral head fracture without dislocation. Intact fixation hardware. ADDENDUM As detailed on the June 19 left hip films, AVN findings are present in the left femoral head along with multiple acute fracture lines. Additional findings on the CT report and plain film report are again noted. Patient likely has developed multiple fragmented serpiginous fracture lines related to the AVN. Renal US: FINDINGS: The right kidney measures 11 cm with a normal echotexture. Mild hydronephrosis unchanged The left kidney measures 11 cm with a normal echotexture. Mild to moderate hydronephrosis has mildly progressed The bladder is mildly distended. Bladder wall is thickened IMPRESSION: Mild right hydronephrosis unchanged [id number] left hydronephrosis mildly progressed. 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 Patient recently hospitalized for obstructive uropathy and urinary retention. Patient left AMA on his last admission. The patient was brought back to the ER by EMS after he was found in a ditch on his way home. He stated that his gait was unsteady. He he fell into the ditch. Patient reported left hip pain. He denied any headache or dizziness. Patient requesting medication for pain. In the emergency room. Keene catheter was reinserted. Hospital Course: Patient presented with a fall after leaving the hospital AMA from a prior admission. Patient was found in a ditch. CT scan revealed avascular necrosis of the left femoral head with multiple acute fracture lines. Patient was seen by Orthopedics. No intervention was required at this time. During the course of his stay hospitalist did reach out to his prior orthopedic surgeon that performed arthroplasty of the left femur to discuss further. Initiation of transfer was discussed. After further review by a his prior orthopedic surgeon , no need for transfer or intervention at this time. Recommendation was to continue with physical therapy. Patient will need follow up with his prior orthopedic surgeon for further evaluation of the avascular necrosis of the left femoral head. Patient will likely require hip replacement in the future. This will be addressed as an outpatient. At this time patient is ambulatory. Patient still has pain. Patient with history of chronic pain with neuropathy in the past. Patient has seen pain management. A long discussion was discussed with the patient about his chronic pain. At discharge will recommend to continue gabapentin 600 mg 3 times a day. Will give a limited supply of Tylenol 3 for acute pain. Will recommend that he follow up with his chronic pain management physician to consider other options. Patient has use oxycodone in the past. If the patient requires oxycodone patient will need to see his chronic pain management physician. Fall risk precautions will be provided. Prior to discharge home health and physical therapy will be arranged. Case discussed at length with his brother who was also a physician. His brother plans to monitor his brother closely although he lives in [place]. His brother phone [phone]. If home health will be provided his number so that he has some family contact. During the course of his stay patient also had acute on chronic renal failure stage 4 with electrolyte abnormalities including hyperkalemia likely related to his obstructive uropathy. Nephrology and Urology was consulted. During the course of his stay patient was non compliant with recommendations of Keene catheter and IV fluids. Patient without Keene catheter at this time. Urology recommended no further intervention. Urology recommended to continue Flomax. At discharge sodium, potassium and renal function stable at this time. Patient with stage IV renal failure. Patient will go home with Flomax 0.4 mg daily. For his electrolyte abnormalities patient will continue with magnesium 400 mg twice daily. Patient may follow up with urology in 1-2 weeks to follow up this hospitalization. Patient will need to follow up with nephrology in 1-2 weeks as well. Recommendation to recheck lab-BMP in 1 week to monitor progress. Patient will need to match his input and output closely. If his renal function and electrolytes continue to be abnormal patient may require further hospitalization. Patient with diabetes mellitus type 2 insulin-dependent with hyperglycemia. Blood sugars were elevated during the course of his stay. Medications were adjusted. At discharge he will continue with Lantus 20 units subcu daily. Patient will also continue with Januvia 25 mg daily. Recommend to monitor blood sugars at least twice daily. Recommend to maintain blood sugars less 140 fasting and less than 200 after meals. Patient may need to increase his Lantus by 2 units daily if his blood sugars remain above 300. Further adjustment in his medication can be done by his PCP. Recommend follow up closely with PCP to further monitor and address. Patient with history of seizure disorder. This has remained stable. At discharge she will continue with his current medication Keppra 1000 mg daily. Patient with history of alcohol abuse. Drug screen and alcohol level was within normal range upon admission. This was discussed in detail with patient and brother. Recommend to continue alcohol cessation. This will need to be further monitored and addressed by his PCP. Will recommend for patient to continue folic acid 1 mg 1 pill daily and thiamine 100 mg daily. Due to his electrolyte abnormalities and increased output, patient also had orthostatic hypotension. Patient with history of hypertension. His blood pressure medications have been discontinued. Patient currently stable on Midodrine. Patient will continue with midodrine 5 mg twice daily. May need to hold admitted trend if blood pressure remains above 140/90. Recommend to monitor blood pressures daily to further address. Further adjustment in medication may be required. This can be done with the help of Nephrology or his PCP. Patient with GERD. Patient will continue with Protonix 40 mg daily. Patient with history of hyperlipidemia. Patient may continue with Lipitor 20 mg daily and Tricor 160 mg daily. Patient with history of noncompliance with plan of care and medications. Compliance with plan of care will need to be monitored closely. Because of his noncompliance the patient was evaluated by psychiatry to assess his mental capacity to make his own decisions. Patient was deemed appropriate. Patient able to make his own decisions. Patient desires to be discharged at this time with home health. Vital Signs/Physical Exam: Temp Pulse Resp BP Pulse Ox 97.7 F 80 18 119/88 99 06/28/19 08:00 06/28/19 08:00 06/28/19 08:00 06/28/19 08:00 06/28/19 08:00 General: Alert, In no apparent distress, Oriented x3, Cooperative HEENT: Atraumatic Neck: Supple Respiratory: Clear to auscultation bilaterally, Normal air movement Cardiovascular: Normal pulses, Regular rate/rhythm Gastrointestinal: Normal bowel sounds, Soft and benign, Non-distended, No tenderness, No masses, No rebound Neurological: Normal speech, Normal strength at 5/5 x4 extr, Normal tone, Normal affect Laboratory Data at Discharge: WBC 11.0 K/uL (4.3-10.9) H D 06/24/19 05:15 Hgb 8.8 g/dL (13.6-17.9) L 06/24/19 05:15 Hct 25.5 % (39.6-49.0) L 06/24/19 05:15 Plt Count 278 K/uL (152-406) D 06/24/19 05:15 PT 13.3 SECONDS (9.5-12.5) H 06/20/19 01:45 INR 1.13 06/20/19 01:45 Sodium 136 mmol/L (136-145) 06/28/19 04:49 Potassium 4.8 mmol/L (3.5-5.1) 06/28/19 04:49 BUN 52 mg/dL (7-18) H 06/28/19 04:49 Creatinine 2.55 mg/dL (0.55-1.3) H 06/28/19 04:49 Glucose 113 mg/dL (74-106) H 06/28/19 04:49 Magnesium 1.1 mg/dL (1.8-2.4) L* 06/20/19 16:47 Total Bilirubin 0.2 mg/dL (0.2-1.0) 06/20/19 01:45 AST 24 U/L (15-37) 06/20/19 01:45 ALT 36 U/L (12-78) 06/20/19 01:45 Alkaline Phosphatase 185 U/L (45-117) H 06/20/19 01:45 Home Medications: Atorvastatin Calcium [Lipitor*] 20 mg PO BEDTIME 06/12/19 Duloxetine HCl [Cymbalta] 60 mg PO BID 06/12/19 Fenofibrate [Tricor*] 160 mg PO DAILY 06/12/19 Folic Acid 1 mg PO DAILY 06/12/19 Levetiracetam [Keppra] 1,000 mg PO DAILY 06/12/19 Pantoprazole Sodium [Protonix] 40 mg PO DAILY 06/12/19 Codeine/APAP [Tylenol W/Codeine #3 tab] 1 tab PO TID PRN #15 tab 06/28/19 Gabapentin 600 mg PO TID #90 tablet 06/28/19 Insulin Glargine Human [Lantus*] 20 units SQ DAILY WITH BREAKFAST #1 bottle Magnesium Oxide [Mag 0X*] 400 mg PO BID #60 tab 06/28/19 Midodrine HCl [Proamatine*] 5 mg PO BID #60 tab 06/28/19 Sitagliptin Phosphate [Januvia] 25 mg PO DAILY #30 tablet 06/28/19 Tamsulosin [Flomax*] 0.4 mg PO BEDTIME #30 cap 06/28/19 Thiamine HCl 100 mg PO DAILY #90 tablet 06/28/19 New Medications: Codeine/APAP [Tylenol W/Codeine #3 tab] 1 tab PO TID PRN #15 tab PRN Reason: Pain Gabapentin 600 mg PO TID #90 tablet Insulin Glargine Human [Lantus*] 20 units SQ DAILY WITH BREAKFAST #1 bottle Magnesium Oxide [Mag 0X*] 400 mg PO BID #60 tab Midodrine HCl [Proamatine*] 5 mg PO BID #60 tab Sitagliptin Phosphate [Januvia] 25 mg PO DAILY #30 tablet Tamsulosin [Flomax*] 0.4 mg PO BEDTIME #30 cap Thiamine HCl 100 mg PO DAILY #90 tablet Patient Discharge Instructions: 1. Patient will need to follow up with his PCP in 1 week to follow up this hospitalization. 2. Patient presented with a fall after leaving the hospital AMA from a prior admission. Patient was found in a ditch. CT scan revealed avascular necrosis of the left femoral head with multiple acute fracture lines. Patient was seen by Orthopedics. No intervention was required at this time. During the course of his stay hospitalist did reach out to his prior orthopedic surgeon that performed arthroplasty of the left femur to discuss further. Initiation of transfer was discussed. After further review by a his prior orthopedic surgeon, no need for transfer or intervention at this time. Recommendation was to continue with physical therapy. Patient will need follow up with his prior orthopedic surgeon for further evaluation of the avascular necrosis of the left femoral head. Patient will likely require hip replacement in the future. This will be addressed as an outpatient. At this time patient is ambulatory. Patient still has pain. Patient with history of chronic pain with neuropathy in the past. Patient has seen pain management. A long discussion was discussed with the patient about his chronic pain. At discharge will recommend to continue gabapentin 600 mg 3 times a day. Will give a limited supply of Tylenol 3 for acute pain. Will recommend that he follow up with his chronic pain management physician to consider other options. Patient has use oxycodone in the past. If the patient requires oxycodone patient will need to see his chronic pain management physician. Fall risk precautions will be provided. Prior to discharge home health and physical therapy will be arranged. Case discussed at length with his brother who was also a physician. His brother plans to monitor his brother closely although he lives in [place]. His brother phone [phone]. If home health will be provided his number so that he has some family contact. 3. During the course of his stay patient also had acute on chronic renal failure stage 4 with electrolyte abnormalities including hyperkalemia likely related to his obstructive uropathy. Nephrology and Urology was consulted. During the course of his stay patient was non compliant with recommendations of Keene catheter and IV fluids. Patient without Keene catheter at this time. Urology recommended no further intervention. Urology recommended to continue Flomax. At discharge sodium, potassium and renal function stable at this time. Patient with stage IV renal failure. Patient will go home with Flomax 0.4 mg daily. For his electrolyte abnormalities patient will continue with magnesium 400 mg twice daily. Patient may follow up with urology in 1-2 weeks to follow up this hospitalization. Patient will need to follow up with nephrology in 1-2 weeks as well. Recommendation to recheck lab-BMP in 1 week to monitor progress. Patient will need to match his input and output closely. If his renal function and electrolytes continue to be abnormal patient may require further hospitalization. 4. Patient with diabetes mellitus type 2 insulin-dependent with hyperglycemia. Blood sugars were elevated during the course of his stay. Medications were adjusted. At discharge he will continue with Lantus 20 units subcu daily. Patient will also continue with Januvia 25 mg daily. Recommend to monitor blood sugars at least twice daily. Recommend to maintain blood sugars less 140 fasting and less than 200 after meals. Patient may need to increase his Lantus by 2 units daily if his blood sugars remain above 300. Further adjustment in his medication can be done by his PCP. Recommend follow up closely with PCP to further monitor and address. 5. Patient with history of seizure disorder. This has remained stable. At discharge she will continue with his current medication Keppra 1000 mg daily. 6. Patient with history of alcohol abuse. Drug screen and alcohol level was within normal range upon admission. This was discussed in detail with patient and brother. Recommend to continue alcohol cessation. This will need to be further monitored and addressed by his PCP. Will recommend for patient to continue folic acid 1 mg 1 pill daily and thiamine 100 mg daily. 7. Due to his electrolyte abnormalities and increased output, patient also had orthostatic hypotension. Patient with history of hypertension. His blood pressure medications have been discontinued. Patient currently stable on Midodrine. Patient will continue with midodrine 5 mg twice daily. May need to hold admitted trend if blood pressure remains above 140/90. Recommend to monitor blood pressures daily to further address. Further adjustment in medication may be required. This can be done with the help of Nephrology or his PCP. 8. Patient with GERD. Patient will continue with Protonix 40 mg daily. 9. Patient with history of hyperlipidemia. Patient may continue with Lipitor 20 mg daily and Tricor 160 mg daily. 10. Patient with history of noncompliance with plan of care and medications. Compliance with plan of care will need to be monitored closely. Because of his noncompliance the patient was evaluated by psychiatry to assess his mental capacity to make his own decisions. Patient was deemed appropriate. Patient able to make his own decisions. Patient desires to be discharged at this time with home health. Diet: ADA Activity: Fall precautions Time spent managing pt's care (in minutes): 55
[2019-06-28 09:09] VITALS: O2SAT 99
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
--- NOTE | 2019-06-28 13:25 | PN ---
Date of Progress Note: 06/28/2019 Subjective: Patient was admitted with acute kidney injury secondary to obstructive uropathy with hyp erkalemia. Patient remove his Keene and refused any IV fluid or any Keene insertion. Physical Examination: Vital Signs: Blood pressure 116/63, pulse of 78. Chest: Clear to auscultation. Heart: S1, S2. Regular. Abdomen: Soft, nontender. Dullness on the suprapubic area. Extremities: No edema. Laboratory Data: WBC 11, H and H 8.8/25.5, platelets 276. Sodium 136, potassium 4.8, bicarb 27, BUN 52, creatinine 2.5, calcium 8.9. Current Medications: The patient on include albuterol, midodrine, Flomax, atorvastatin, gabapentin, folic acid, Pepcid, Zofran. Again, patient refused all basic treatment. Assessment And Plan: 1.Acute kidney injury, secondary to obstructive uropathy. Again, patient refused treatment. Advice the patient the need for Keene and leg bag. Continue on Flomax, will follow up with Urology as outp atient. Patient will think about it. 2.Hypertension, currently hypotension. Continue on Flomax and midodrine. 3.Obstructive uropathy as above. 4.Hyperkalemia, resolved. THEODORE/DAVIN Voice ID: [id number] Report ID: [id number]
[2019-07-01 08:38] VITALS: BP 112/67; TEMP 97
== END 2019-06-28 14:32 | disposition home health service (06) | DRG 535 ==
LOC: ER 01:02 → ERHOLD 05:16 → 4TH 05:43
PROVIDERS: ADMIT Internal Medicine; ATTEND Family Medicine
DX: S72.002A Fracture of unspecified part of neck of left femur, initial encounter for closed fracture (principal); G93.41 Metabolic encephalopathy; M97.02XA Periprosthetic fracture around internal prosthetic left hip joint, initial encounter; N13.8 Other obstructive and reflux uropathy; E87.1 Hypo-osmolality and hyponatremia; M90.552 Osteonecrosis in diseases classified elsewhere, left thigh; N18.4 Chronic kidney disease, stage 4 (severe); N17.9 Acute kidney failure, unspecified; Z96.643 Presence of artificial hip joint, bilateral; J44.9 Chronic obstructive pulmonary disease, unspecified; K21.9 Gastro-esophageal reflux disease without esophagitis; E78.5 Hyperlipidemia, unspecified; N30.90 Cystitis, unspecified without hematuria; N40.1 Benign prostatic hyperplasia with lower urinary tract symptoms; R33.8 Other retention of urine; I95.9 Hypotension, unspecified; Z79.899 Other long term (current) drug therapy; F17.210 Nicotine dependence, cigarettes, uncomplicated; W18.30XA Fall on same level, unspecified, initial encounter; R35.8 Other polyuria; E83.42 Hypomagnesemia; E87.6 Hypokalemia; E87.5 Hyperkalemia; E11.65 Type 2 diabetes mellitus with hyperglycemia; I12.9 Hypertensive chronic kidney disease with stage 1 through stage 4 chronic kidney disease, or unspecified chronic kidney disease; E11.22 Type 2 diabetes mellitus with diabetic chronic kidney disease; Z79.4 Long term (current) use of insulin; Z91.19 Patient's noncompliance with other medical treatment and regimen; E86.0 Dehydration; Z91.14 Patient's other noncompliance with medication regimen; F41.9 Anxiety disorder, unspecified; F32.5 Major depressive disorder, single episode, in full remission; E11.40 Type 2 diabetes mellitus with diabetic neuropathy, unspecified; F10.10 Alcohol abuse, uncomplicated
CPT/HCPCS: 36415; 51702; 71045; 73700; 76770; 80048; 80076; 80307; 80320; 81003; 81015; 82570; 82947; 83735; 83880; 84300; 84439; 84443; 84484; 85018; 85025; 85610; 93005; 96360; 96361; 99285; J0696; J1200; J1644; J1815; J3475; J7030; J7120

== ENCOUNTER 2019-07-01 05:35 | Emergency (ER) | payer OTHER ==
--- OUTSIDE RECORDS SUMMARY | 2019-07-01 05:40 | XMS REPORT ---
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 27225268015 60 MG Oral Active TAKE 1 CAPSULE TWICE DAILY ProAir HFA [facility] 72721130079 108 (90 Base) Active 2 puffs as MCG/ACT needed Inhalation every 6 hrs Folic Acid [facility] 47501869763 1 MG Orally Active 1 tablet Once a day One Touch NDC 0 Once twice a Active one Delica test day strips Gabapentin [facility] 01396560301 600 MG Oral Active TAKE 1 TABLET BY MOUTH THREE TIMES A DAY Fenofibrate [facility] 11540169749 160 MG Oral Active take 1 tablet Once a day by mouth every day with supper Lisinopril [facility] 71164951714 20 MG Oral Once Active take 1 tablet a day by mouth every day Levetiracetam [facility] 34833287636 1000 MG Orally Dec Active 1 tablet Once a day 2018 Atorvastatin [facility] 69821101994 20 MG Orally Dec Active 1 tablet Calcium Once a day 2018 Metformin HCl [facility] 19464969698 1000 MG Orally Active 1 tablet with a BID meal Trazodone HCl [facility] 55880054588 100 MG Orally Dec Active 1 tablet at Once a day , bedtime 2018 Pantoprazole [facility] 33777580854 40 MG Orally Active 1 tablet Sodium Once a day Tramadol HCl [facility] 73296456943 50 MG Orally Active 1 tablet as Once a day PRN needed SEVERE PAIN Vicodin [facility] 85061064701 5-300 MG Orally Dec Inactive 1 tablet as every 6 hrs 17, needed 2018 Humulin R [facility] 98416417900 100 UNIT/ML Dec Active inject 2-18 Injection twice 13, units per a day 2019 sliding scale OneTouch Verio [facility] 17321949411 - In Vitro 4 Dec Active 1 test strip times a day 2018 Tresiba [facility] 89163371530 200 UNIT/ML Dec Active inject 30 units FlexTouch Subcutaneous 17, Once a day 2018 Cymbalta [facility] 86252002587 60 MG Orally Active 1 capsule Twice a day Insulin Syringe [facility] 16138697839 30G X 1/2 Active 1 syringe subcutaneously six times a day One Touch NDC 0 Active not defined Delica Lancets Humulin N [facility] 31365012233 100 UNIT/ML Inactive INJECT 20 UNITS Subcutaneous SUBCUTANEOUSLY 2 TIMES A DAY WITH MEALS Results No Known Results Summary Purpose eClinicalWorks Submission
--- OUTSIDE RECORDS SUMMARY | 2019-07-01 05:40 | XMS REPORT ---
[...] Problem Depression with anxiety F41.8 Active Problem intermediate (current) use of insulin Z79.4 Active Problem GERD without esophagitis K21.9 Active Medications Medication Code System Code Instructions Start Date End Date Status Dosage Gabapentin [facility] 21869623283 600 MG Orally Active 1 tablet three times a day Results No Known Results Summary Purpose eClinicalWorks Submission
--- OUTSIDE RECORDS SUMMARY | 2019-07-01 05:40 | XMS REPORT ---
:1965 Author Organization [facility] Address [address] [place] [address] Care Team Providers Name Role Phone Unavailable [...] MHSW [id number] 00:28:00 00:28:00 2018-05-12 2018-05-12 Outpatient [facility] [id number] 00:00:00 00:00:00 2018-04-13 2018-04-13 Outpatient [facility] [id number] 00:00:00 00:00:00 2018-02-23 2018-02-23 Outpatient [facility] [id number] 00:00:00 00:00:00 2018-02-19 2018-02-19 Outpatient [facility] [id number] 00:00:00 00:00:00 2018-02-16 2018-02-16 Outpatient [facility]HS [facility] [id number] 00:00:00 00:00:00 2018-01-25 2018-01-25 Outpatient [facility]HS [facility] [id number] 00:00:00 00:00:00 2018-01-22 2018-01-22 Outpatient [facility]HS [facility] [id number] 15:47:04 15:47:04 2018-01-20 2018-01-20 Outpatient [facility]HS [facility] [id number] 00:00:00 00:00:00 2018-01-19 2018-01-19 Outpatient [facility]HS [facility] [id number] 15:13:11 15:13:11 2018-01-19 2018-01-19 Outpatient [facility]HS [facility] [id number] 00:00:00 00:00:00 2017-12-17 2017-12-17 Outpatient [facility]HS [facility] [id number] 00:00:00 00:00:00 2017-11-10 2017-11-10 Outpatient [facility]HS [facility] [id number] 00:00:00 00:00:00 2017-10-29 2017-10-29 Outpatient [facility]HS [facility] [id number] 00:00:00 00:00:00 2017-10-06 2017-10-06 Outpatient [facility]HS [facility] [id number] 00:00:00 00:00:00 2017-09-15 2017-09-15 Outpatient [facility] [id number] 09:41:29 09:41:29 2017-08-27 2017-08-27 Outpatient [facility] [id number] 08:29:31 08:29:31 2017-08-26 2017-08-26 Outpatient [facility] [id number] 00:00:00 00:00:00 2017-08-21 2017-08-21 Outpatient [facility]HS [facility] [id number] 13:11:02 13:11:02 2017-08-17 2017-08-17 Outpatient [facility]HS [facility] [id number] 00:00:00 00:00:00 2017-08-13 2017-08-13 Outpatient [facility] [id number] 00:00:00 00:00:00 2017-07-10 2017-07-10 Outpatient [facility]HS [facility] [id number] 11:10:51 11:10:51 2017-07-10 2017-07-10 Outpatient [facility]HS [facility] [id number] 10:58:18 10:58:18 2017-07-10 2017-07-10 Outpatient [facility] [id number] 10:27:13 10:27:13 2017-07-09 2017-07-09 Outpatient [facility] [id number] 00:00:00 00:00:00 2017-07-08 2017-07-08 Outpatient [facility] [id number] 09:18:37 09:18:37 2017-07-08 2017-07-08 Outpatient [facility]HS [facility] [id number] 00:00:00 00:00:00 2017-07-08 2017-07-08 Outpatient [facility]HS [facility] [id number] 00:00:00 00:00:00 2017-07-08 2017-07-08 Outpatient [facility]HS [facility] [id number] 00:00:00 00:00:00 2017-06-30 2017-06-30 Outpatient [facility] [id number] 00:00:00 00:00:00 2017-06-29 2017-06-29 Outpatient [facility]HS [facility] [id number] 00:00:00 00:00:00 2017-06-18 2017-06-18 Outpatient [facility]HS [facility] [id number] 00:00:00 00:00:00 2017-05-07 2017-05-07 Outpatient [facility]HS [facility] [id number] 00:00:00 00:00:00 2017-04-21 2017-04-21 Outpatient [facility]HS [facility] [id number] 10:37:11 10:37:11 2017-04-21 2017-04-21 Outpatient [facility]HS [facility] [id number] 10:22:34 10:22:34 2017-04-21 2017-04-21 Outpatient [facility]HS [facility] [id number] 00:00:00 00:00:00 2017-04-14 2017-04-14 Outpatient [facility]HS [facility] [id number] 00:00:00 00:00:00 2017-04-14 2017-04-14 Outpatient [facility]HS [facility] [id number] 00:00:00 00:00:00 2017-02-23 2017-02-23 Outpatient [facility]HS [facility] [id number] 00:00:00 00:00:00 2017-02-18 2017-02-18 Outpatient [facility]HS [facility] [id number] 00:00:00 00:00:00 2017-02-18 2017-02-18 Outpatient [facility]HS [facility] [id number] 00:00:00 00:00:00 2017-02-11 2017-02-11 Outpatient [facility]HS [facility] [id number] 10:36:34 10:36:34 2017-02-03 2017-02-03 Outpatient [facility]HS [facility] [id number] 00:00:00 00:00:00 2017-01-29 2017-01-29 Outpatient [facility]HS [facility] [id number] 00:00:00 00:00:00 2017-01-20 2017-01-20 Outpatient [facility]HS [facility] [id number] 00:00:00 00:00:00 2017-01-06 2017-01-06 Outpatient [facility]HS [facility] [id number] 00:00:00 00:00:00 2016-12-29 2016-12-29 Outpatient [facility]HS [facility] [id number] 00:00:00 00:00:00 2016-12-22 2016-12-22 Outpatient HHS [facility] [id number] 00:00:00 00:00:00 2016-12-05 2016-12-05 Outpatient HHS [facility] [id number] 00:00:00 00:00:00 2016-11-25 2016-11-25 Outpatient [facility]HS [facility] [id number] 00:00:00 00:00:00 2016-11-07 2016-11-07 Outpatient [facility]HS [facility] [id number] 00:00:00 00:00:00 2016-10-22 2016-10-22 Outpatient HHS [facility] [id number] 00:00:00 00:00:00 2016-10-22 2016-10-22 Outpatient HHS [facility] [id number] 00:00:00 00:00:00 2016-10-14 2016-10-14 Outpatient HHS [facility] [id number] 00:00:00 00:00:00 2016-10-14 2016-10-14 Outpatient HHS [facility] [id number] 00:00:00 00:00:00 2016-10-14 2016-10-14 Outpatient HHS [facility] [id number] 00:00:00 00:00:00 2016-10-13 2016-10-13 Outpatient HHS [facility] [id number] 00:00:00 00:00:00 2016-10-06 2016-10-06 Outpatient HHS [facility] [id number] 00:00:00 00:00:00 2016-09-26 2016-09-26 Outpatient HHS [facility] [id number] 13:05:03 13:05:03 2016-09-26 2016-09-26 Outpatient HHS [facility] [id number] 11:08:45 11:08:45 2016-09-26 2016-09-26 Outpatient [facility] [id number] 00:00:00 00:00:00 2016-09-23 2016-09-23 Outpatient [facility] [id number] 08:22:53 08:22:53 2016-09-22 2016-09-22 Outpatient [facility] [id number] 00:00:00 00:00:00 2016-09-02 2016-09-02 Outpatient [facility] [id number] 10:13:54 10:13:54 2016-09-02 2016-09-02 Outpatient [facility] [id number] 09:14:14 09:14:14 2016-09-01 2016-09-01 Outpatient [facility] [id number] 00:00:00 00:00:00 2016-08-27 2016-08-27 Outpatient [facility] [id number] 12:05:53 12:05:53 2016-08-27 2016-08-27 Outpatient [facility] [id number] 00:00:00 00:00:00 2016-08-06 2016-08-06 Outpatient [facility] [id number] 09:30:09 09:30:09 2016-08-05 2016-08-05 Outpatient [facility] [id number] 07:45:01 07:45:01 2016-08-05 2016-08-05 Outpatient [facility] [id number] 07:31:35 07:31:35 2016-08-05 2016-08-05 Outpatient [facility] [id number] 07:03:38 07:03:38 2016-08-05 2016-08-05 Outpatient [facility] [id number] 00:00:00 00:00:00 2016-07-30 2016-07-30 Outpatient [facility] [id number] 08:54:41 08:54:41 2016-07-30 2016-07-30 Outpatient [facility] [id number] 08:31:03 08:31:03 2016-07-30 2016-07-30 Outpatient [facility] [id number] 00:00:00 00:00:00 2016-07-04 2016-07-04 Outpatient [facility] [id number] 13:13:54 13:13:54 2016-06-18 2016-06-18 Emergency [facility] [id number] 06:01:16 06:01:16 2016-06-18 2016-06-18 Emergency [facility] [id number] 03:35:11 03:35:11 2016-06-12 2016-06-12 Outpatient [facility] [id number] 15:43:01 15:43:01 2016-06-10 2016-06-10 Outpatient [facility] [id number] 15:07:17 15:07:17 2016-06-03 2016-06-03 Emergency [facility] [id number] 22:18:53 22:18:53 2016-06-03 2016-06-03 Emergency [facility] [id number] 21:25:09 21:25:09 2016-06-03 2016-06-03 Outpatient [facility] [id number] 13:20:06 13:20:06 2016-04-24 2016-04-24 Outpatient [facility] [id number] 15:07:56 15:07:56 2016-04-01 2016-04-01 Outpatient [facility] [id number] 00:00:00 00:00:00 2016-03-19 2016-03-19 Outpatient [facility] [id number] 09:28:43 09:28:43 2016-03-17 2016-03-17 Outpatient [facility] [id number] 14:23:13 14:23:13 2016-03-17 2016-03-17 Outpatient [facility] [id number] 11:07:20 11:07:20 2016-03-17 2016-03-17 Outpatient [facility] [id number] 10:16:12 10:16:12 2016-03-11 2016-03-11 Outpatient [facility] [id number] 11:14:32 11:14:32 2016-02-18 2016-02-18 Outpatient [facility] [id number] 10:29:58 10:29:58 2016-02-12 2016-02-12 Outpatient [facility] [id number] 11:32:37 11:32:37 2016-02-12 2016-02-12 Outpatient [facility] [id number] 10:50:02 10:50:02 2016-02-08 2016-02-08 Outpatient [facility] [id number] 09:42:08 09:42:08 Results Test Description Test Time [...] to the main Lab for analysis. POC [id number] 07:41:17 Test Item Value Reference Range Comments Glucose POC (test 268 mg/dL 70-115 Notify RN or MDIf you consider code=Glucose POC) your patient critically ill, the Eliza-Accu Check Infrom II meter should not be used for Glucose determination. Draw a venous Glucose and send to the main Lab for analysis. POC [id number] 20:06:15 Test Item Value Reference Range Comments Glucose POC (test 259 mg/dL 70-115 If you consider your patient code=Glucose POC) critically ill, the Eliza-Accu Check Infrom II meter should not be used for Glucose determination. Draw a venous Glucose and send to the main Lab for analysis. POC [id number] 16:24:53 Test Item Value Reference Range Comments Glucose POC (test 171 mg/dL 70-115 If you consider your patient code=Glucose POC) critically ill, the Eliza-Accu Check Infrom II meter should not be used for Glucose determination. Draw a venous Glucose and send to the main Lab for analysis. Troponin [id number] 13:20:34 Test Item Value Reference Range Comments [...] a diagnosis of chronic myocardial injury. Creatine [id number] 13:19:47 Test Item Value Reference Range Comments CK (test code=CK) 138 U/L 39-308 Creatine Kinase MB [id number] 13:18:50 Test Item Value Reference Range Comments CKMB (test code=CKMB) 4.8 ng/mL 0.0-4.9 Creatine Kinase MB [id number] 13:18:50 Test Item Value Reference Range Comments CKMB (test code=CKMB) 4.8 ng/mL 0.0-4.9 CKMB % (test code=CKMB %) 3.5 % 0.0-3.4 Drugs of Abuse Urine [id number] 13:05:26 Test Item Value Reference Range Comments [...] (test Negative Negative code=Cannabinoid Screen Ur) POC [id number] 11:32:18 Test Item Value Reference Range Comments Glucose POC (test 296 mg/dL 70-115 If you consider your patient code=Glucose POC) critically ill, the Eliza-Accu Check Infrom II meter should not be used for Glucose determination. Draw a venous Glucose and send to the main Lab for analysis. Thyroid Stimulating [id number] 07:33:08 Test Item Value Reference Range Comments TSH (test code=TSH) 1.020 mIU/mL 0.270-4.200 Hemoglobin [id number] 07:32:52 Test Item Value Reference Range Comments Hemoglobin A1c (test 11.0 % 4.8-5.9 Non Diabetic 4.8-5.9%Diabetic code=Hemoglobin A1c) <7.0% Lipid [id number] 07:27:53 Test Item Value Reference Range Comments Cholesterol Total (test 156 mg/dL 0-200 RISK OF HEART code=Cholesterol Total) DISEASEPublished by [place] [employer] Analyte Optimal Borderline Increased RiskCHOL [...] when Triglyceride is greater than 400. Magnesium [id number] 07:27:53 Test Item Value Reference Range Comments Magnesium Level (test code=Magnesium Level) 1.5 mg/dL 1.7-2.5 Phosphorus [id number] 07:27:53 Test Item Value Reference Range Comments Phosphorus Level (test code=Phosphorus Level) 2.80 mg/dL 2.70-4.50 Comprehensive Metabolic [id number] 07:27:52 Test Item Value Reference Range Comments [...] (test code=A/G Ratio) 1.4 ratio Comprehensive Metabolic [id number] 07:27:52 Test Item Value Reference Range Comments [...] is not provided, and the patient is -[place] Citizen, multiply by 1.212. If sex is not [...] the National Kidney Foundation, http://nkdep.nih.gov Comprehensive Metabolic [id number] 07:27:52 Test Item Value Reference Range Comments [...] is not provided, and the patient is -[place] Citizen, multiply by 1.212. If sex is not [...] is not provided, and the patient is -[place] Citizen, multiply by 1.212. If sex is not [...] by the National Kidney Foundation, http://nkdep.nih.gov POC [id number] 07:20:10 Test Item Value Reference Range Comments Glucose POC (test 225 mg/dL 70-115 If you consider your patient code=Glucose POC) critically ill, the Eliza-Accu Check Infrom II meter should not be used for Glucose determination. Draw a venous Glucose and send to the main Lab for analysis. Creatine [id number] 07:19:03 Test Item Value Reference Range Comments CK (test code=CK) 119 U/L 39-308 Troponin [id number] 07:19:03 Test Item Value Reference Range Comments [...] of chronic myocardial injury. Creatine Kinase MB [id number] 07:17:15 Test Item Value Reference Range Comments CKMB (test code=CKMB) 3.8 ng/mL 0.0-4.9 Creatine Kinase MB [id number] 07:17:15 Test Item Value Reference Range Comments CKMB (test code=CKMB) 3.8 ng/mL 0.0-4.9 CKMB % (test code=CKMB %) 3.2 % 0.0-3.4 Complete Blood Count without [id number] 06:59:02 Test Item Value Reference Range Comments [...] x10 IPF (test code=IPF) 0 % POC [id number] 06:12:19 Test Item Value Reference Range Comments Glucose POC (test 267 mg/dL 70-115 If you consider your patient code=Glucose POC) critically ill, the Eliza-Accu Check Infrom II meter should not be used for Glucose determination. Draw a venous Glucose and send to the main Lab for analysis. POC [id number] 05:00:38 Test Item Value Reference Range Comments Glucose POC (test 61 mg/dL 70-115 If you consider your patient code=Glucose POC) critically ill, the Eliza-Accu Check Infrom II meter should not be used for Glucose determination. Draw a venous Glucose and send to the main Lab for analysis. POC [id number] 04:01:42 Test Item Value Reference Range Comments Glucose POC (test 151 mg/dL 70-115 Notify RN or MDIf you consider code=Glucose POC) your patient critically ill, the Eliza-Accu Check Infrom II meter should not be used for Glucose determination. Draw a venous Glucose and send to the main Lab for analysis. POC [id number] 03:15:14 Test Item Value Reference Range Comments [...] 1.9 mmol/L 0.5-1.9 Acid, Plasma (Venous)) POC [id number] 02:08:55 Test Item Value Reference Range Comments [...] Site (test code=Draw Site) Brachial. R POC [id number] 01:25:51 Test Item Value Reference Range Comments Glucose POC (test 366 mg/dL 70-115 If you consider your patient code=Glucose POC) critically ill, the Eliza-Accu Check Infrom II meter should not be used for Glucose determination. Draw a venous Glucose and send to the main Lab for analysis. [id number] 22:30:52 Test Item Value Reference Range Comments Acetone (Ketones) (test code=Acetone (Ketones)) Negative Negative Lot # (test code=Lot #) [id number] Expiration Dt (test code=Expiration Dt) [id number] Neg Control (test code=Neg Control) Negative Pos Control (test code=Pos Control) Positive Urinalysis with Culture, if [id number] 22:29:03 Test Item Value Reference Range Comments [...] by rule Micro Ind?) GL_SJM_UA_MICRO_IND Comprehensive Metabolic [id number] 22:13:44 Test Item Value Reference Range Comments [...] is not provided, and the patient is -[place] Citizen, multiply by 1.212. If sex is not [...] is not provided, and the patient is -[place] Citizen, multiply by 1.212. If sex is not [...] by the National Kidney Foundation, http://nkdep.nih.gov Alcohol Rviac5082-49-79 22:02:32 Test Item Value Reference Range Comments Ethanol Level (test 0.30 g/dL 0.00-0.01 Critical results called to RN, code=Ethanol Level) Cathy Hardy at 10/02/2018 22:01:54 CDT_ by RS_. Read back and verified? _yesIntoxicated 0.080 g/dL or more Ethanol Inst (test 302 code=Ethanol Inst) Magnesium [id number] 21:53:52 Test Item Value Reference Range Comments Magnesium Level (test code=Magnesium Level) 1.6 mg/dL 1.7-2.5 Phosphorus [id number] 21:53:52 Test Item Value Reference Range Comments Phosphorus Level (test code=Phosphorus Level) 4.40 mg/dL 2.70-4.50 Automated [id number] 21:32:53 Test Item Value Reference Range Comments Neutro Auto (test code=Neutro Auto) 57.7 % 36.0-70.0 Lymph Auto (test code=Lymph Auto) 28.4 % 12.0-44.0 [place] Auto (test code=[place] Auto) 10.8 % 0.0-11.0 Eos, Auto (test code=Eos, Auto) 1.4 % 0.0-7.0 Basophil Auto (test code=Basophil Auto) 0.7 % 0.0-2.0 Neutro Absolute (test code=Neutro Absolute) 5.5 x10 1.6-7.4 Lymph Absolute (test code=Lymph Absolute) 2.69 x10 .50-4.60 [place] Absolute (test code=[place] Absolute) 1.02 x10 .00-1.20 Eos Absolute (test code=Eos Absolute) 0.13 x10 0.00-0.74 Baso Absolute (test code=Baso Absolute) 0.07 x10 0.00-0.21 IG [id number] 21:32:53 Test Item Value Reference Range Comments IG (test code=IG) 1.0 % 0.0-5.0 IG Abs (test code=IG Abs) 0 x10 Complete Blood Count with Zbmnvbcuydfq3929-03-26 21:32:52 Test Item Value Reference Range Comments [...] x10 IPF (test code=IPF) 0 % POC [id number] 20:55:21 Test Item Value Reference Range Comments [...] (test code=Draw Site) Radial. R COMPREHENSIVE METABOLIC [id number] 22:26:00 Test Item Value Reference Range Comments [...] ALKALINE PHOSPHATASE (test 255 UNITS/L 38-126 code=ALKP) [id number] 22:26:00 Test Item Value Reference Range Comments ALCOHOL (test code=ALC) 282.0 MG/DL <10 CALLED TO TRUDY Ortiz & READBACK ON 08/25/18 AT 2226 Elizabeth Madrigal CBC W/O [id number] 22:00:00 Test Item Value Reference Range Comments [...] code=NRBC#) 0.00 K/mm3 0.0-0.1 - XR CHEST [id number] 21:09:00 Patient Name: PRIYANKA EVANGELISTA Unit No: [id number] EXAMS: CPT CODE: [id number] XR CHEST 1V 75059 Location of dictation: B2 Portable chest one [...] AlbinaPXC Orig Print D/T: S: 08/25/2018 (2112) [facility] NAME: PRIYANKA EVANGELISTA [address] PHYS: [place] [address] : 1965 AGE: 53 SEX: M LOC: Z.ERS PHONE #: [phone] EXAM DATE: 08/25/2018 STATUS: PRE ER FAX #: [phone] RADIOLOGY NO: PAGE 1 Signed ReportGLUCOSE BEDSIDE [id number] 20:44:00 Test Item Value Reference Range Comments GLUCOSE BEDSIDE TESTING (test > 600 MG/DL 60-99 Notified Nurse~ code=GLUBED) XR Ribs w/ PA Chest [id number] 01:15:17Patient: PRIYANKA EVANGELISTA Date/Time07/20/2018 00: 30 CDTReason for ExamInjuryReportLOCATION: [id number]: 53-year-old male who presents with rib pain.COMMENT:A [...] LSigned (Electronic Signature): 07/20/2018 1:15 amGLUCOSE BEDSIDE [id number] 16:12:00 Test Item Value Reference Range Comments GLUCOSE BEDSIDE TESTING (test code=GLUBED) 271 MG/DL 60-99 [id number] 14:56:00 Test Item Value Reference Range Comments ALCOHOL (test code=ALC) 296.0 MG/DL <10 CALLED TO FANTASMA& READBACK ON 06/10/18 AT 1456 BY Romina Valdes HEPATIC FUNCTION [id number] 14:54:00 Test Item Value Reference Range Comments TOTAL PROTEIN (test code=PROT) 8.9 G/DL 6.2-7.6 ALBUMIN (test code=ALB) 5.2 G/DL 3.5-5.0 BILIRUBIN TOTAL (test code=BILT) 0.7 MG/DL 0.2-1.3 BILIRUBIN DIRECT (test code=BILD) 0.0 MG/DL 0.0-0.3 SGOT/AST (test code=AST) 48 UNITS/L 17-59 SGPT/ALT (test code=ALT) 39 UNITS/L 21-72 ALKALINE PHOSPHATASE (test code=ALKP) 317 UNITS/L 38-126 DRUGS OF ABUSE SCREEN [id number] 14:16:00 Test Item Value Reference Range Comments [...] off Value: 25 ng/mL code=PHENCU) BASIC METABOLIC [id number] 14:05:00 Test Item Value Reference Range Comments [...] CALCIUM (test code=CA) 9.5 MG/DL 8.4-10.2 URINALYSIS [id number] 14:00:00 Test Item Value Reference Range Comments [...] NO CULTURE Culture Chk code=UACULT) Criteria URINALYSIS [id number] 13:59:00 Test Item Value Reference Range Comments [...] NEEDED? (test code=UACULT) Criteria Culture Chk PROTHROMBIN [id number] 13:41:00 Test Item Value Reference Range Comments [...] systemic embolism. 3.0 - 4.5 CBC W/AUTO [id number] 13:30:00 Test Item Value Reference Range Comments [...] (test code=NRBC#) 0.00 K/mm3 0.0-0.1 GLUCOSE BEDSIDE [id number] 13:01:00 Test Item Value Reference Range Comments GLUCOSE BEDSIDE TESTING (test code=GLUBED) 427 MG/DL 60-99 Notified Nurse~ CHEMISTRY 8 [id number] 13:00:00 Test Item Value Reference Range Comments [...] Range: > or=60 ml/min/1.73 m2 CHEMISTRY 8 [id number] 13:00:00 Test Item Value Reference Range Comments [...] Range: > or=60 ml/min/1.73 m2 BASIC METABOLIC [id number] 11:41:00 Test Item Value Reference Range Comments [...] (test code=CA) 8.2 MG/DL 8.4-10.2 CBC W/AUTO [id number] 11:37:00 Test Item Value Reference Range Comments [...] RBC # (test code=NRBC#) 0.00 K/mm3 0.0-0.1 [id number] 11:00:00 Test Item Value Reference Range Comments ALCOHOL (test code=ALC) 323.0 MG/DL <10 CALLED TO BERTHA.T& READBACK ON 06/08/18 AT 1100 BY Romina Valdes - XR HIP W/PEL UNI 2+V [id number] 09:57:00 Patient Name: PRIYANKA EVANGELISTA Unit No: [id number] EXAMS: CPT CODE: [id number] XR HIP W/PEL UNI 2+[place] [id number] Right hip History: pain Comparison: May 31, [...] Carter Chatman, RT(R) Transcrpt Date/Tm/Trnsp: 06/08 (0957) t.SDR.[facility] OrigPrint D/T: S: 06/08/2018 (1001) [facility] NAME: PRIYANKA EVANGELISTA [address] PHYS: [place] [address] : 1965 AGE : 53 SEX: M LOC: UNK PHONE #: [phone] EXAM DATE: 06/08/2018 STATUS: DEP FAX #: [phone] RADIOLOGY NO: PAGE 1 Signed Report- XR HIP W/PEL UNI 2+V [id number] 09:57:00 Patient Name: PRIYANKA EVANGELISTA Unit No: [id number] EXAMS: CPT CODE: [id number] XR HIP W/PEL UNI 2+[place] [address] Right hip History: pain Comparison: May 31, [...] (0957) t.SDR.PMT OrigPrint D/T: S: 02/2019 (1001) [facility] NAME: PRIYANKA EVANGELISTA [address] PHYS : [place] [address] : 02/1966 AGE: 53 SEX: M LOC: KATHY PHONE #: [phone] EXAM DATE: 06/08/2018 STATUS: REG ER FAX #: [phone] RADIOLOGY NO: PAGE 1 Signed ReportGLUCOSE BEDSIDE [id number] 12:55:00 Test Item Value Reference Range Comments GLUCOSE BEDSIDE TESTING (test code=GLUBED) 160 MG/DL 60-99 GLUCOSE BEDSIDE [id number] 10:49:00 Test Item Value Reference Range Comments GLUCOSE BEDSIDE TESTING (test code=GLUBED) 186 MG/DL 60-99 BASIC METABOLIC [id number] 06:15:00 Test Item Value Reference Range Comments [...] (test code=CA) 8.8 MG/DL 8.4-10.2 CBC W/AUTO [id number] 05:54:00 Test Item Value Reference Range Comments [...] (test code=NRBC#) 0.00 K/mm3 0.0-0.1 GLUCOSE BEDSIDE [id number] 21:08:00 Test Item Value Reference Range Comments GLUCOSE BEDSIDE TESTING (test code=GLUBED) 198 MG/DL 60-99 GLUCOSE BEDSIDE [id number] 18:21:00 Test Item Value Reference Range Comments GLUCOSE BEDSIDE TESTING (test code=GLUBED) 217 MG/DL 60-99 [id number] 13:23:00 Test Item Value Reference Range Comments MAGNESIUM (test code=MAG) 1.6 MG/DL 1.6-2.3 GLUCOSE BEDSIDE [id number] 12:58:00 Test Item Value Reference Range Comments GLUCOSE BEDSIDE TESTING (test code=GLUBED) 334 MG/DL 60-99 GLUCOSE BEDSIDE [id number] 12:40:00 Test Item Value Reference Range Comments GLUCOSE BEDSIDE TESTING (test code=GLUBED) 193 MG/DL 60-99 GLUCOSE BEDSIDE [id number] 10:59:00 Test Item Value Reference Range Comments GLUCOSE BEDSIDE TESTING (test code=GLUBED) 173 MG/DL 60-99 BASIC METABOLIC [id number] 06:55:00 Test Item Value Reference Range Comments [...] (test code=CA) 8.8 MG/DL 8.4-10.2 GLUCOSE BEDSIDE [id number] 06:37:00 Test Item Value Reference Range Comments GLUCOSE BEDSIDE TESTING (test code=GLUBED) 220 MG/DL 60-99 CBC W/AUTO [id number] 06:17:00 Test Item Value Reference Range Comments [...] RBC # (test code=NRBC#) 0.00 K/mm3 0.0-0.1 [id number] 21:42:00 Test Item Value Reference Range Comments MAGNESIUM (test code=MAG) 1.9 MG/DL 1.6-2.3 GLUCOSE BEDSIDE [id number] 21:08:00 Test Item Value Reference Range Comments GLUCOSE BEDSIDE TESTING (test code=GLUBED) 101 MG/DL 60-99 GLUCOSE BEDSIDE [id number] 15:54:00 Test Item Value Reference Range Comments GLUCOSE BEDSIDE TESTING (test code=GLUBED) 261 MG/DL 60-99 Notified Nurse~ GLUCOSE BEDSIDE [id number] 11:18:00 Test Item Value Reference Range Comments GLUCOSE BEDSIDE TESTING (test code=GLUBED) 321 MG/DL 60-99 Notified Nurse~ BASIC METABOLIC [id number] 08:23:00 Test Item Value Reference Range Comments SODIUM (test code=NA) 121 MMOL/L 137-145 POTASSIUM (test code=K) 5.0 MMOL/L 3.5-5.1 CHLORIDE (test code=CL) 84 MMOL/L 98-107 CARBON DIOXIDE (test code=CO2) 27 MMOL/L 22-30 ANION GAP (test code=GAP) 15 MMOL/L 14-24 GLUCOSE (test code=GLU) 344 MG/DL 74-106 [facility] & READBACK ON 06/01/18 AT 0822 BY Romina Valdes BLOOD UREA NITROGEN (test 14 MG/DL 9-20 code=BUN) GLOMERULAR FILTRATION RATE > 60 Reporting units: ml/min/1.73 (test code=GFR) m2 (Modified MDRD Formula)Reference Range: > or=60 ml/min/1.73 m2 CREATININE (test code=CREAT) 0.80 MG/DL 0.66-1.25 CALCIUM (test code=CA) 8.9 MG/DL 8.4-10.2 CBC W/AUTO [id number] 07:18:00 Test Item Value Reference Range Comments [...] (test code=NRBC#) 0.00 K/mm3 0.0-0.1 GLUCOSE BEDSIDE [id number] 06:36:00 Test Item Value Reference Range Comments GLUCOSE BEDSIDE TESTING (test code=GLUBED) 296 MG/DL 60-99 [id number] 22:45:00 Test Item Value Reference Range Comments MAGNESIUM (test code=MAG) 1.2 MG/DL 1.6-2.3 GLUCOSE BEDSIDE [id number] 19:56:00 Test Item Value Reference Range Comments GLUCOSE BEDSIDE TESTING (test code=GLUBED) 316 MG/DL 60-99 Notified Nurse~ - XR HIP W/PEL UNI 2+V [id number] 13:13:00 Patient Name: PRIYANKA EVANGELISTA Unit No: [id number] EXAMS: CPT CODE: [id number] XR HIP W/PEL UNI 2+[place] [address] Right hip History: RIGHT FEMUR FRACTURE Comparison: [...] t.ANGLER.PMT Orig Print D/T: S: 05/31/2018 (1316) [facility] NAME: PRIYANKA EVANGELISTA [address] PHYS: [place] [address] : 1965 AGE: 53 SEX: M LOC: [employer] PHONE #: [phone] EXAM DATE: 05/31/2018 STATUS: DIS IN FAX #: [phone] RADIOLOGY NO: PAGE 1 Signed Report- XR HIP W/ PEL UNI 2+V [id number] 13:13:00 Patient Name: PRIYANKA EVANGELISTA Unit No: [id number] EXAMS: CPT CODE: [id number] XR HIP W/PEL UNI 2+[place] [address] Right hip History: RIGHT FEMUR FRACTURE Comparison: [...] Technologist: Rohan Machado RT(R) Transcrpt Date/Tm/Trnsp: 05/31/2018 (0693) t.SDR.PMT Orig Print D/T: S: 05/31/2018 (9529) [facility] NAME: PRIYANKA EVANGELISTA [address] PHYS: [place] [address] : 1965 AGE: 53 SEX: M LOC: Z.534 A PHONE #: [phone] EXAM DATE: 05/31/2018 STATUS: ADM IN FAX #: [phone] RADIOLOGY NO: PAGE 1 Signed [id number] 12:56:00 Test Item Value Reference Range Comments HEMOGLOBIN (test code=HGB) 11.1 G/DL 12.4-16.7 Specimen comments: Patient in PACUComments to Recruitment Intern: Patient in [id number] 12:56:00 Test Item Value Reference Range Comments HEMATOCRIT (test code=HCT) 34.1 % 35.9-49.5 Specimen comments: Patient in PACUComments to Recruitment Intern: Patient in PACUGLUCOSE BEDSIDE [id number] 09:21:00 Test Item Value Reference Range Comments [...] HIGH.........130-159 mg/dL HIGH.........160-189 mg/dL VERY HIGH.........>/=190 mg/dL [id number] 07:50:00 Test Item Value Reference Range Comments MAGNESIUM (test code=MAG) 1.3 MG/DL 1.6-2.3 THYROID STIMULATING [id number] 07:50:00 Test Item Value Reference Range Comments [...] HIGH.........130-159 mg/dL HIGH.........160-189 mg/dL VERY HIGH.........>/=190 mg/dL [id number] 07:30:00 Test Item Value Reference Range Comments MAGNESIUM (test code=MAG) 1.3 MG/DL 1.6-2.3 THYROID STIMULATING [id number] 07:30:00 Test Item Value Reference Range Comments THYROID STIMULATING HORMONE (test code=TSH) MIU/L 0.465-4.68 LIPID PROFILE (CORONARY RISK)2018-05-31 07:19:00 Test Item Value Reference Range Comments TRIGLYCERIDES (test code=TRIG) 93 MG/DL TRIGLYCERIDES REFERENCE RANGE:Normal: <150 mg/dLBorderline High: 150-199 mg/dLHigh: 200-499 mg/dLVery High: >=500 mg/dL CHOLESTEROL (test code=CHOL) 191 MG/DL <200 HDL CHOLESTEROL (test 58 MG/DL 40-59 code=HDL) LIPOPROTEIN LDL (test MG/DL 0-99 code=LDL) [id number] 07:19:00 Test Item Value Reference Range Comments MAGNESIUM (test code=MAG) 1.3 MG/DL 1.6-2.3 THYROID STIMULATING [id number] 07:19:00 Test Item Value Reference Range Comments THYROID STIMULATING HORMONE (test code=TSH) MIU/L 0.465-4.68 GLYCOSYLATED HEMOGLOBIN [id number] 22:01:00 Test Item Value Reference Range Comments [...] (test 260 MG/DL 70-110 code=MBG) COMPREHENSIVE METABOLIC [id number] 20:45:00 Test Item Value Reference Range Comments SODIUM (test code=NA) 139 MMOL/L 137-145 POTASSIUM (test code=K) 4.9 MMOL/L 3.5-5.1 CHLORIDE (test code=CL) 101 MMOL/L 98-107 CARBON DIOXIDE (test code=CO2) 24 MMOL/L 22-30 ANION GAP (test code=GAP) 19 MMOL/L 14-24 GLUCOSE (test code=GLU) 332 MG/DL 74-106 CALLED TO GERA CUMMINS ZCE=817& READBACK ON 05/30/18 AT 2045 BY Jeremías [...] (test 192 UNITS/L 38-126 code=ALKP) GLUCOSE BEDSIDE [id number] 16:40:00 Test Item Value Reference Range Comments GLUCOSE BEDSIDE TESTING (test code=GLUBED) 314 MG/DL 60-99 URINALYSIS [id number] 15:07:00 Test Item Value Reference Range Comments [...] NEEDED? (test code=UACULT) Criteria Culture Chk URINALYSIS [id number] 15:07:00 Test Item Value Reference Range Comments [...] CULTURE Culture Chk code=UACULT) Criteria GLUCOSE BEDSIDE [id number] 12:16:00 Test Item Value Reference Range Comments GLUCOSE BEDSIDE TESTING (test code=GLUBED) 368 MG/DL 60-99 COMPREHENSIVE METABOLIC [id number] 11:34:00 Test Item Value Reference Range Comments [...] ALKALINE PHOSPHATASE (test 204 UNITS/L 38-126 code=ALKP) [id number] 11:34:00 Test Item Value Reference Range Comments ALCOHOL (test code=ALC) 348.0 MG/DL <[address] ALFONSO& READBACK ON 05/30/18 AT 1133 BY Elizabeth Machado PROTHROMBIN [id number] 11:11:00 Test Item Value Reference Range Comments [...] recurrent systemic embolism. 3.0 - 4.5 PTT [id number] 11:11:00 Test Item Value Reference Range Comments PTT ACTIVATED (test code=APTT) 25.5 SECONDS 22.0-33.0 CBC W/AUTO [id number] 10:57:00 Test Item Value Reference Range Comments [...] 0.0-0.1 - XR HIP W/PEL UNI 2+V [id number] 09:50:00 Patient Name: PRIYANKA EVANGELISTA Unit No: [id number] EXAMS: CPT CODE: [id number] XR HIP W/PEL UNI 2+[place] [address] Location code: R 16 Right hip 2 [...] (0950) [id number] Orig Print D/T: S: 05/30/2018 (6553) [facility] NAME: PRIYANKA EVANGELISTA [address] PHYS: [place] [address] : 1965 AGE: 53 SEX: M LOC: [employer] PHONE #: [phone] EXAM DATE: 05/30/2018 STATUS: DIS IN FAX #: [phone] RADIOLOGY NO: PAGE 1 Signed Report- XR HIP W/PEL UNI 2+V [id number] 09:50:00 Patient Name: PRIYANKA EVANGELISTA Unit No: [id number] EXAMS: CPT CODE: [id number] XR HIP W/PEL UNI 2+V [place] [address] Location code: R 16 Right hip 2 [...] (0950) AlbinaDRB1 Orig Print D/T: S: (0953) [facility] NAME: PRIYANKA EVANGELISTA [address] PHYS : [place] [address] : 02/1966 AGE: 53 SEX: M LOC: .ERS PHONE #: [phone] EXAM DATE: STATUS: PRE ER FAX #: [phone] RADIOLOGY NO: PAGE 1 Signed Report- XR HIP W/PEL UNI 2+V [id number] 14:25:00 Patient Name: PRIYANKA EVANGELISTA Unit No: [id number] EXAMS: CPT CODE: [id number] XR HIP W/PEL UNI 2+[place] [address] Fluoroscopy Left hip nailing FINDINGS: An intramedullary [...] (1425) AlbinaRK5 Orig Print D/T:S: 05/16/2016 (1428) [facility] NAME: PRIYANKA EVANGELISTA [address] PHYS: [place] [address] : 1965 AGE: 51 SEX: M LOC: UNK PHONE #: [phone] EXAM DATE: 05/16/2016 STATUS: UNK FAX #: [phone] RADIOLOGY NO: PAGE 1 Signed Report- XR WRIST 3+V [id number] 19:15:00 Patient Name: PRIYANKA EVANGELISTA Unit No: [id number] EXAMS: CPT CODE: [id number] XR WRIST 3+[place] [address] Location n 13 Left Wrist, 3 views [...] Frederick Orig Print D/T: S: 01/31/2016 (1917) [facility] NAME: PRIYANKA EVANGELISTA [address] PHYS: [place] [address] : 1965 AGE: 50 SEX: M LOC: [employer] PHONE #: [phone] EXAM DATE: 2015 STATUS: UNSkyBulls FAX #: [phone] RADIOLOGY NO: PAGE 1 Signed Report
--- OUTSIDE RECORDS SUMMARY | 2019-07-01 05:40 | XMS REPORT ---
[...] Problem Depression with anxiety F41.8 Active Problem retirement (current) use of insulin Z79.4 Active Problem [...] Status Dosage System Date Date Metformin HCl [facility] 42705326479 500 MG Oral Inactive TAKE 2 TABLETS BY MOUTH EVERY DAY Pantoprazole ND 13647118449 40 MG Orally Active 1 tablet Sodium Once a day Humulin R ND 49380095909 100 UNIT/ML Mar 11, Active inject Injection twice 2019 2-18 units a day per sliding scale One Touch NDC 0 Once twice a Inactive one Delica test day strips OneTouch Verio [facility] 48782571600 - In Vitro Mar 11, Active 1 test times a day 2018 strip Cymbalta ND 74208943897 60 MG Orally Active 1 capsule Twice a day Duloxetine HCl ND 24963911053 60 MG Oral Inactive TAKE 1 CAPSULE TWICE DAILY Results No Known Results Summary Purpose eClinicalWorks Submission
[2019-07-01] MEDS ORDERED: CEFTRIAXONE/SWI 1gm 1 GM/10 ML SYR ONE (06:26)
[2019-07-01] MEDS ORDERED: NA CHLORIDE 0.9% 1,000 ML ONE (06:26)
[2019-07-01 06:35] LABS: Albumin 3.8 g/dL (3.4-5.0); Bilirubin Total 0.3 mg/dL (0.2-1.0); Potassium 3.9 mmol/L (3.5-5.1); Protein, Total 8.3 g/dL (6.4-8.2)
[2019-07-01 06:36] LABS: Basophils % 0.6 % (0-1.3); Hematocrit 24.8 % (39.6-49.0); Lymphocytes % 10.4 % (15.3-44.8); MPV 7.9 fL (7.6-11.3); RBC Red Blood Cell Count 2.75 M/uL (4.33-5.43)
--- NOTE | 2019-07-01 07:48 | ER ---
Nurse's Notes [facility] Name: Frandy Gomes Age: 54 yrs Sex: Male : 1965 Arrival Date: 07/01/2019 Time: 05:36 Bed 19 Private MD: Diagnosis: Dysuria;Pain in left hip-femoral head fracture, avascular necrosis;Abuse of non-psychoactive substances;Anemia, unspecified;Unspecified kidney failure Presentation: 06/30 05:50 Chief complaint: Patient states: "my urinary catheter is leaking all over me" pt is bb uncooperative, and belligerent asking inappropriate questions and making inappropriate comments. Coronavirus screen: Patient denies fever greater than 100.4F, cough, shortness of breath, or difficulty breathing. Proceed with normal triage process. Ebola Screen: No symptoms or risks identified at this time. Initial Sepsis Screen: Does the patient meet any 2 criteria? No. Patient's initial sepsis screen is negative. Does the patient have a suspected source of infection? No. Patient's initial sepsis screen is negative. Risk Assessment: Do you want to hurt yourself or someone else? Patient reports no desire to harm self or others. Onset of symptoms is unknown. 05:50 Method Of Arrival: Ambulatory bb 05:50 Acuity: VARINDER 3 jv1 Historical: - Allergies: 05:54 No Known Allergies; bb - Home Meds: 05:54 atorvastatin 20 mg Oral tab 1 tab once daily [Active]; duloxetine 60 mg Oral cpDR 1 cap bb twice a day [Active]; fenofibrate 160 mg Oral tab 1 tab once daily [Active]; Folic Acid 1000 mg Oral once daily [Active]; gabapentin 600 mg Oral tab 1 tab 3 times per day [Active]; levetiracetam 1,000 mg Oral tab 1 tab daily [Active]; lisinopril 20 mg Oral tab 1 tab once daily [Active]; metformin 1,000 mg Oral tab 1 tab 2 times per day [Active]; pantoprazole 40 mg Oral TbEC 1 tab once daily [Active]; trazodone 100 mg Oral tab nightly [Active]; - PMHx: 05:54 COPD; Diabetes - NIDDM; GERD; Hyperlipidemia; Hypertension; Seizures; titanium marjorie in bb arm and hip; - PSHx: 05:54 L hip surgery; R hip surgery; bb - Immunization history:: Adult Immunizations unknown. - Social history:: Smoking status: unknown. - Family history:: not pertinent. Screenin:40 Abuse screen: Denies threats or abuse. Denies injuries from another. Nutritional jv1 screening: No deficits noted. Tuberculosis screening: No symptoms or risk factors identified. Fall Risk Fall in past 12 months (25 points). IV access (20 points). Assessment: 05:40 General: Appears in no apparent distress. unkempt, Behavior is agitated, anxious, jv1 uncooperative. Pain: Complains of pain in left lower quadrant and right lower quadrant, left hip Pain does not radiate. Pain currently is 8 out of 10 on a pain scale. Quality of pain is described as aching. Neuro: Level of Consciousness is awake, alert, obeys commands, Oriented to person, place, time, Regional Sales Director are equal bilaterally Moves all extremities. Speech is normal. Cardiovascular: Denies chest pain, Heart tones S1 S2 Capillary refill < 3 seconds. Respiratory: Airway is patent Respiratory effort is even, unlabored, Respiratory pattern is Breath sounds are clear. GI: Abdomen is flat, non-distended, Bowel sounds present X 4 quads. Abd is soft and non tender. : Graham in place Urine is cloudy, pt stated graham is leaking and noted that his diaper is fully soaked. EENT: No deficits noted. Derm: Skin pt has open wounds on his bilateral upper extremity and lower extremities Wound noted curtis arms and legs. Musculoskeletal: Capillary refill < 3 seconds, Reports pain in left hip since 3 days ago. 06:00 Reassessment: removed existing graham leg bag pt tolerated well. bb 06:10 Reassessment: instructed pt as per Dr. Talley's order to notify nurse once he feels jv1 the urge to void as we need to collect urine and we need to measure his post void residual. pt verbalized understanding. cleaned pt and placed new briefs as well. 06:44 Reassessment: Patient appears in no apparent distress at this time. No changes from jv1 previously documented assessment. Patient and/or family updated on plan of care and expected duration. Pain level reassessed. Patient is alert, oriented x 3, equal unlabored respirations, skin warm/dry/pink. 07:00 Reassessment: RECD REPORT FROM MIRANDA BOSS. 54YO HM P/W URINARY PROBLEM. PT BELLIGERENT bp WITH NIGHT STAFF, SCREAMING "KEEPING ME IN THIS ROOM IS ABUSE" AND USING PROFANITY. PT REDIRECTED TO APPROPRIATE BEHAVIOR. 07:20 Reassessment: PT REFUSING TO STAY IN ROOM AND FURTHER TREATMENT. PT DIRECTED THAT bp LOITERING IN LAW IS INAPPROPRIATE AT THIS TIME, PT ENGAGING IN FURTHER VERBAL ABUSE OF STAFF. 07:48 Reassessment: PT REFUSING TO RE-ENTER ROOM OR COOPERATE WITH FURTHER MEDICAL TREATMENT. bp PT D/C OWN PIV AND STAFF PLACED DRESSING. PT REFUSED TO SIGN AMA, AMBULATED OFF UNIT WITH STEADY GAIT. Vital Signs: 05:50 BP 114 / 90; Pulse 59; Resp 16 S; Temp 99(O); Pulse Ox 100% on R/A; Weight 68.04 kg jv1 (R); Height 5 ft. 6 in. (167.64 cm); 05:50 BP 114 / 90; Pulse 59; Resp 16; Temp 99; Pulse Ox 100% on R/A; Pain 8/10; jv1 06:45 BP 139 / 93; Pulse 108; Resp 18; Temp 99; Pulse Ox 99% ; jv1 07:26 BP 152 / 99; Pulse 112; Resp 18; Pulse Ox 100% ; bp 05:50 Body Mass Index 24.21 (68.04 kg, 167.64 cm) jv1 ED Course: 05:36 Patient arrived in ED. cl3 05:37 Robbie Talley MD is Attending Physician. jessica 05:53 Triage completed. bb 05:54 Arm band placed on Patient placed in an exam room, on a stretcher, on pulse oximetry. bb 06:05 Initial lab(s) drawn, by me, sent to lab. Inserted saline lock: 20 gauge in right bb antecubital area, using aseptic technique. Blood collected. 06:33 Pelvis XRAY In Process Unspecified. EDMS 06:34 Hip Left 2 View XRAY In Process Unspecified. EDMS 06:45 Patient has correct armband on for positive identification. Bed in low position. Call jv1 light in reach. Side rails up X2. 07:23 Navdeep Crowley, GERA is Primary Nurse. bp 07:44 Adam Lux MD is Referral Physician. jessica 07:45 Elias Ortega MD is Referral Physician. jessica 07:47 Sunita Giles MD is Referral Physician. jessica 07:49 No provider procedures requiring assistance completed. IV discontinued, intact, bp bleeding controlled, No redness/swelling at site. Pressure dressing applied. Administered Medications: 06:23 Drug: NS 0.9% 1000 ml Route: IV; Rate: 1 bolus; Site: right antecubital; bb 06:54 Follow up: Response: No adverse reaction; IV Status: Completed infusion jv1 06:24 Drug: Rocephin 1 grams Route: IV; Rate: per protocol; Site: right antecubital; bb 06:40 Follow up: Response: No adverse reaction; IV Status: Completed infusion jv1 07:50 Not Given (Patient Refused): Flomax 0.4 mg PO once bp Outcome: 07:49 AMA Left before signing form. bp 07:49 Condition: stable 07:51 Patient left the ED. bp Signatures: Dispatcher [employer] EDMS Robbie Talley MD MD cha Ballard, Brenda RN RN Navdeep Barkley RN RN bp Vicente, Joyce, RN RN jFarhad Gracia cl3 Corrections: (The following items were deleted from the chart) 06:19 05:50 BP 114 / 90; Resp 16bpm; Spontaneous; Pulse Ox 100% RA; Temp 99F Oral; 68.04 kg jv1 Reported; Height 5 ft. 6 in.; BMI: 24.2; bb 06:19 05:50 Acuity: VARINDER 4 bb jv1 06:44 06:31 General: Appears in no apparent distress. unkempt, Behavior is agitated, anxious, jv1 uncooperative, jv1
--- NOTE | 2019-07-01 07:48 | EDPHYS ---
Physician Documentation [facility] Name: Frandy Gomes Age: 54 yrs Sex: Male : 1965 Arrival Date: 07/01/2019 Time: 05:36 Bed 19 Private MD: Robbie Mcnally HPI: 06/30 06:01 This 54 yrs old Male presents to ER via Ambulatory with complaints of Problem jessica With Urinary Catheter. 06:01 The patient presents with abdominal pain. Onset: The symptoms/episode began/occurred 2 jessica day(s) ago. The patient presents with a Keene catheter problem, is leaking urine. Onset: The symptoms/episode began/occurred 2 day(s) ago. Modifying factors: The symptoms are alleviated by nothing, the symptoms are aggravated by nothing. Associated signs and symptoms: The patient has no apparent associated signs or symptoms. The symptoms do not radiate. Severity of pain: At its worst the pain was mild in the emergency department the pain is unchanged. Historical: - Allergies: 05:54 No Known Allergies; bb - Home Meds: 05:54 atorvastatin 20 mg Oral tab 1 tab once daily [Active]; duloxetine 60 mg Oral cpDR 1 cap bb twice a day [Active]; fenofibrate 160 mg Oral tab 1 tab once daily [Active]; Folic Acid 1000 mg Oral once daily [Active]; gabapentin 600 mg Oral tab 1 tab 3 times per day [Active]; levetiracetam 1,000 mg Oral tab 1 tab daily [Active]; lisinopril 20 mg Oral tab 1 tab once daily [Active]; metformin 1,000 mg Oral tab 1 tab 2 times per day [Active]; pantoprazole 40 mg Oral TbEC 1 tab once daily [Active]; trazodone 100 mg Oral tab nightly [Active]; - PMHx: 05:54 COPD; Diabetes - NIDDM; GERD; Hyperlipidemia; Hypertension; Seizures; titanium marjorie in bb arm and hip; - PSHx: 05:54 L hip surgery; R hip surgery; bb - Immunization history:: Adult Immunizations unknown. - Social history:: Smoking status: unknown. - Family history:: not pertinent. ROS: 06:01 Constitutional: Negative for fever, chills, and weight loss, Eyes: Negative for injury, jessica pain, redness, and discharge, ENT: Negative for injury, pain, and discharge, Neck: Negative for injury, pain, and swelling, Cardiovascular: Negative for chest pain, palpitations, and edema, Respiratory: Negative for shortness of breath, cough, wheezing, and pleuritic chest pain, Back: Negative for injury and pain, MS/Extremity: Negative for injury and deformity, Skin: Negative for injury, rash, and discoloration, Neuro: Negative for headache, weakness, numbness, tingling, and seizure, Psych: Negative for depression, anxiety, suicide ideation, homicidal ideation, and hallucinations, Allergy/Immunology: Negative for hives, rash, and allergies, Endocrine: Negative for neck swelling, polydipsia, polyuria, polyphagia, and marked weight changes, Hematologic/Lymphatic: Negative for swollen nodes, abnormal bleeding, and unusual bruising. 06:01 Abdomen/GI: Positive for abdominal pain, of the suprapubic area, right lower quadrant and left lower quadrant. Exam: 06:01 Constitutional: This is a well developed, well nourished patient who is awake, alert, jessica and in no acute distress. Head/Face: Normocephalic, atraumatic. Eyes: Pupils equal round and reactive to light, extra-ocular motions intact. Lids and lashes normal. Conjunctiva and sclera are non-icteric and not injected. Cornea within normal limits. Periorbital areas with no swelling, redness, or edema. ENT: Nares patent. No nasal discharge, no septal abnormalities noted. Tympanic membranes are normal and external auditory canals are clear. Oropharynx with no redness, swelling, or masses, exudates, or evidence of obstruction, uvula midline. Mucous membranes moist. Neck: Trachea midline, no thyromegaly or masses palpated, and no cervical lymphadenopathy. Supple, full range of motion without nuchal rigidity, or vertebral point tenderness. No Meningismus. Chest/axilla: Normal chest wall appearance and motion. Nontender with no deformity. No lesions are appreciated. Cardiovascular: Regular rate and rhythm with a normal S1 and S2. No gallops, murmurs, or rubs. Normal PMI, no JVD. No pulse deficits. Respiratory: Lungs have equal breath sounds bilaterally, clear to auscultation and percussion. No rales, rhonchi or wheezes noted. No increased work of breathing, no retractions or nasal flaring. Back: No spinal tenderness. No costovertebral tenderness. Full range of motion. Male : Normal genitalia with no discharge or lesions. Skin: Warm, dry with normal turgor. Normal color with no rashes, no lesions, and no evidence of cellulitis. MS/ Extremity: Pulses equal, no cyanosis. Neurovascular intact. Full, normal range of motion. Neuro: Awake and alert, GCS 15, oriented to person, place, time, and situation. Cranial nerves II-XII grossly intact. Motor strength 5/5 in all extremities. Sensory grossly intact. Cerebellar exam normal. Normal gait. Psych: Awake, alert, with orientation to person, place and time. Behavior, mood, and affect are within normal limits. 06:01 Abdomen/GI: Inspection: abdomen appears normal, Bowel sounds: normal, Palpation: abdomen is soft and non-tender, Liver: is firm, Hernia: not appreciated. Vital Signs: 05:50 BP 114 / 90; Pulse 59; Resp 16 S; Temp 99(O); Pulse Ox 100% on R/A; Weight 68.04 kg jv1 (R); Height 5 ft. 6 in. (167.64 cm); 05:50 BP 114 / 90; Pulse 59; Resp 16; Temp 99; Pulse Ox 100% on R/A; Pain 8/10; jv1 06:45 BP 139 / 93; Pulse 108; Resp 18; Temp 99; Pulse Ox 99% ; jv1 07:26 BP 152 / 99; Pulse 112; Resp 18; Pulse Ox 100% ; bp 05:50 Body Mass Index 24.21 (68.04 kg, 167.64 cm) jv1 MDM: 05:42 Patient medically screened. [facility] 06:03 Data reviewed: vital signs, nurses notes, lab test result(s), radiologic studies. [facility] 06/30 06:00 Order name: CBC with Diff; Complete Time: 06:56 [facility] 06/30 06:00 Order name: Comprehensive Metabolic Panel; Complete Time: 06:56 [facility] 06/30 06:00 Order name: Pelvis XRAY [facility] 06/30 06:00 Order name: Hip Left 2 View XRAY [facility] Administered Medications: 06:23 Drug: NS 0.9% 1000 ml Route: IV; Rate: 1 bolus; Site: right antecubital; bb 06:54 Follow up: Response: No adverse reaction; IV Status: Completed infusion jv1 06:24 Drug: Rocephin 1 grams Route: IV; Rate: per protocol; Site: right antecubital; 06:40 Follow up: Response: No adverse reaction; IV Status: Completed infusion jv1 07:50 Not Given (Patient Refused): Flomax 0.4 mg PO once bp Disposition: 07/01/19 07:47 Patient has left against medical advice. Impression: Dysuria, Pain in left hip - femoral head fracture, avascular necrosis, Abuse of non-psychoactive substances, Anemia, unspecified, Unspecified kidney failure. - Patients states they are going to Home. - Condition is Stable. - Discharge Instructions: Joint Pain, Arthritis, Keene Catheter Care, Adult, Hip Fracture, Musculoskeletal Pain, Substance Use Disorder, Hip Pain, Arthritis, [id number], Chronic Kidney Disease, Adult, [id number], Joint Pain, [id number]. - Prescriptions for Bactrim DS 800- 160 mg Oral Tablet - take 1 tablet by ORAL route every 12 hours for 7 days; 14 tablet. Flomax 0.4 mg Oral Capsule, Sust. Release 24 hr - take 1 capsule by ORAL route once daily 1/2 hour following the same meal each day; 21 capsule. Follow up: Private Physician; When: 1 - 2 days; Reason: Recheck today's complaints, Continuance of care, Re-evaluation by your physician. Follow up: Adam Lux MD; When: 2 - 3 days; Reason: Recheck today's complaints, Continuance of care, Re-evaluation by your physician. Follow up: Elias Ortega MD; When: 2 - 3 days; Reason: Recheck today's complaints, Re-evaluation by your physician. Follow up: Sunita Giles MD; When: 2 - 3 days; Reason: Recheck today's complaints, Re-evaluation by your physician. - Problem is new. - Symptoms have improved. Signatures: Dispatcher [employer] Robbie Cardona MD MD cha Ballard, Brenda, RN RN Navdeep Barkley, GERA RN Kinjal Vergara RN jv1 Corrections: (The following items were deleted from the chart) 07:50 06:58 Bladder Scanner ordered. jessica 07:51 07:47 07/01/2019 07:47 Patients has left against medical advice. Impression: Dysuria; bp Pain in left hip - femoral head fracture, avascular necrosis; Abuse of non-psychoactive substances; Anemia, unspecified; Unspecified kidney failure. Patient states they are going to Home. Condition is Stable. Discharge Instructions: Joint Pain, Arthritis, Keene Catheter Care, Adult, Musculoskeletal Pain, Substance Use Disorder, Hip Pain, Joint Pain, [id number], Hip Fracture. Prescriptions for Bactrim DS 800-160 mg Oral Tablet - take 1 tablet by ORAL route every 12 hours for 7 days; 14 tablet, Flomax 0.4 mg Oral Capsule, Sust. Release 24 hr - take 1 capsule by ORAL route once daily 1/2 hour following the same meal each day; 21 capsuleFollow up: Private Physician; When: 1 - 2 days; Reason: Recheck today's complaints, Continuance of care, Re-evaluation by your physician. Follow up: Adam Lux; When: 2 - 3 days; Reason: Recheck today's complaints, Continuance of care, Re-evaluation by your physician. Follow up: Elias Ortega; When: 2 - 3 days; Reason: Recheck today's complaints, Re-evaluation by your physician. Follow up: Sunita Giles; When: 2 - 3 days; Reason: Recheck today's complaints, Re-evaluation by your physician. Problem is new. Symptoms have improved. jessica
[2019-07-01 08:00] VITALS: TEMP 99
[2019-07-01 08:01] VITALS: BP 152/99; O2SAT 100
--- NOTE | 2019-07-01 08:51 | RAD REPORT ---
EXAM DESCRIPTION: RAD - Pelvis - 07/01/2019 6:33 am CLINICAL HISTORY: Hip pain FINDINGS: Bones are osteoporotic. Compression screw and intramedullary marjorie affix old femoral fractures. Avascular necrosis involves the left femoral head. The bones are osteoporotic. No acute fracture or dislocation is seen
--- NOTE | 2019-07-01 08:51 | RAD REPORT ---
EXAM DESCRIPTION: RAD - Hip Left 2 View - 07/01/2019 6:34 am CLINICAL HISTORY: Left hip pain FINDINGS: Bones are osteoporotic. Compression screw and intramedullary marjorie affix old femoral fracture. Avascular necrosis involves the left femoral head. The bones are osteoporotic. No acute fracture or dislocation is seen
== END 2019-07-01 07:51 | disposition left against medical advice (07) ==
LOC: ER 05:35
DX: S72.052A Unspecified fracture of head of left femur, initial encounter for closed fracture (principal); M87.9 Osteonecrosis, unspecified; D64.9 Anemia, unspecified; F55.8 Abuse of other non-psychoactive substances; N19 Unspecified kidney failure; I10 Essential (primary) hypertension; E11.9 Type 2 diabetes mellitus without complications; E78.5 Hyperlipidemia, unspecified; G40.909 Epilepsy, unspecified, not intractable, without status epilepticus
CPT/HCPCS: 36415; 72170; 80053; 85025; 96365; 99284; J0696; J7030

== ENCOUNTER 2019-07-02 10:34 | Inpatient (IN) | payer OTHER ==
--- OUTSIDE RECORDS SUMMARY | 2019-07-02 10:39 | XMS REPORT ---
:1965 [facility] Address [address] [place] [address] Care Team Providers Name Role Phone Unavailable [...] [id number] [id number] 00:28:00 00:28:00 2018-05-12 2018-05-12 Outpatient [facility] [id number] 00:00:00 00:00:00 2018-04-13 2018-04-13 Outpatient [facility] [id number] 00:00:00 00:00:00 2018-02-23 2018-02-23 Outpatient [facility] [id number] 00:00:00 00:00:00 2018-02-19 2018-02-19 Outpatient [facility] [id number] 00:00:00 00:00:00 2018-02-16 2018-02-16 Outpatient [facility] [id number] 00:00:00 00:00:00 2018-01-25 2018-01-25 Outpatient [facility] [id number] 00:00:00 00:00:00 2018-01-22 2018-01-22 Outpatient [facility] [id number] 15:47:04 15:47:04 2018-01-20 2018-01-20 Outpatient [facility] [id number] 00:00:00 00:00:00 2018-01-19 2018-01-19 Outpatient [facility] [id number] 15:13:11 15:13:11 2018-01-19 2018-01-19 Outpatient [facility] [id number] 00:00:00 00:00:00 2017-12-17 2017-12-17 Outpatient [facility] [id number] 00:00:00 00:00:00 2017-11-10 2017-11-10 Outpatient [facility] [id number] 00:00:00 00:00:00 2017-10-29 2017-10-29 Outpatient [facility] [id number] 00:00:00 00:00:00 2017-10-06 2017-10-06 Outpatient [facility] [id number] 00:00:00 00:00:00 2017-09-15 2017-09-15 Outpatient [facility] [id number] 09:41:29 09:41:29 2017-08-27 2017-08-27 Outpatient [facility] [id number] 08:29:31 08:29:31 2017-08-26 2017-08-26 Outpatient [facility] [id number] 00:00:00 00:00:00 2017-08-21 2017-08-21 Outpatient [facility] [id number] 13:11:02 13:11:02 2017-08-17 2017-08-17 Outpatient [facility] [id number] 00:00:00 00:00:00 2017-08-13 2017-08-13 Outpatient [facility] [id number] 00:00:00 00:00:00 2017-07-10 2017-07-10 Outpatient [facility] [id number] 11:10:51 11:10:51 2017-07-10 2017-07-10 Outpatient [facility] [id number] 10:58:18 10:58:18 2017-07-10 2017-07-10 Outpatient [facility] [id number] 10:27:13 10:27:13 2017-07-09 2017-07-09 Outpatient [facility] [id number] 00:00:00 00:00:00 2017-07-08 2017-07-08 Outpatient [facility] [id number] 09:18:37 09:18:37 2017-07-08 2017-07-08 Outpatient [facility] [id number] 00:00:00 00:00:00 2017-07-08 2017-07-08 Outpatient [facility] [id number] 00:00:00 00:00:00 2017-07-08 2017-07-08 Outpatient [facility] [id number] 00:00:00 00:00:00 2017-06-30 2017-06-30 Outpatient [facility] [id number] 00:00:00 00:00:00 2017-06-29 2017-06-29 Outpatient [facility] [id number] 00:00:00 00:00:00 2017-06-18 2017-06-18 Outpatient [facility] [id number] 00:00:00 00:00:00 2017-05-07 2017-05-07 Outpatient [facility] [id number] 00:00:00 00:00:00 2017-04-21 2017-04-21 Outpatient [facility] [id number] 10:37:11 10:37:11 2017-04-21 2017-04-21 Outpatient [facility] [id number] 10:22:34 10:22:34 2017-04-21 2017-04-21 Outpatient [facility] [id number] 00:00:00 00:00:00 2017-04-14 2017-04-14 Outpatient [facility] [id number] 00:00:00 00:00:00 2017-04-14 2017-04-14 Outpatient [facility] [id number] 00:00:00 00:00:00 2017-02-23 2017-02-23 Outpatient [facility] [id number] 00:00:00 00:00:00 2017-02-18 2017-02-18 Outpatient [facility] [id number] 00:00:00 00:00:00 2017-02-18 2017-02-18 Outpatient [facility] [id number] 00:00:00 00:00:00 2017-02-11 2017-02-11 Outpatient [facility] [id number] 10:36:34 10:36:34 2017-02-03 2017-02-03 Outpatient [facility] [id number] 00:00:00 00:00:00 2017-01-29 2017-01-29 Outpatient [facility] [id number] 00:00:00 00:00:00 2017-01-20 2017-01-20 Outpatient [facility] [id number] 00:00:00 00:00:00 2017-01-06 2017-01-06 Outpatient [facility] [id number] 00:00:00 00:00:00 2016-12-29 2016-12-29 Outpatient [facility] [id number] 00:00:00 00:00:00 2016-12-22 2016-12-22 Outpatient [facility] [id number] 00:00:00 00:00:00 2016-12-05 2016-12-05 Outpatient [facility] [id number] 00:00:00 00:00:00 2016-11-25 2016-11-25 Outpatient [facility] [id number] 00:00:00 00:00:00 2016-11-07 2016-11-07 Outpatient [facility] [id number] 00:00:00 00:00:00 2016-10-22 2016-10-22 Outpatient [facility] [id number] 00:00:00 00:00:00 2016-10-22 2016-10-22 Outpatient [facility] [id number] 00:00:00 00:00:00 2016-10-14 2016-10-14 Outpatient [facility] [id number] 00:00:00 00:00:00 2016-10-14 2016-10-14 Outpatient [facility] [id number] 00:00:00 00:00:00 2016-10-14 2016-10-14 Outpatient [facility] [id number] 00:00:00 00:00:00 2016-10-13 2016-10-13 Outpatient [facility] [id number] 00:00:00 00:00:00 2016-10-06 2016-10-06 Outpatient [facility]HS [facility] [id number] 00:00:00 00:00:00 2016-09-26 2016-09-26 Outpatient [facility]HS [facility] [id number] 13:05:03 13:05:03 2016-09-26 2016-09-26 Outpatient [facility] [id number] 11:08:45 11:08:45 2016-09-26 2016-09-26 Outpatient [facility] [id number] 00:00:00 00:00:00 2016-09-23 2016-09-23 Outpatient [facility] [id number] 08:22:53 08:22:53 2016-09-22 2016-09-22 Outpatient [facility] [id number] 00:00:00 00:00:00 2016-09-02 2016-09-02 Outpatient [facility] [id number] 10:13:54 10:13:54 2016-09-02 2016-09-02 Outpatient [facility] [id number] 09:14:14 09:14:14 2016-09-01 2016-09-01 Outpatient [facility] [id number] 00:00:00 00:00:00 2016-08-27 2016-08-27 Outpatient [facility] [id number] 12:05:53 12:05:53 2016-08-27 2016-08-27 Outpatient [facility] [id number] 00:00:00 00:00:00 2016-08-06 2016-08-06 Outpatient [facility] [id number] 09:30:09 09:30:09 2016-08-05 2016-08-05 Outpatient [facility] [id number] 07:45:01 07:45:01 2016-08-05 2016-08-05 Outpatient [facility] [id number] 07:31:35 07:31:35 2016-08-05 2016-08-05 Outpatient [facility] [id number] 07:03:38 07:03:38 2016-08-05 2016-08-05 Outpatient [facility] [id number] 00:00:00 00:00:00 2016-07-30 2016-07-30 Outpatient [facility] [id number] 08:54:41 08:54:41 2016-07-30 2016-07-30 Outpatient [facility] [id number] 08:31:03 08:31:03 2016-07-30 2016-07-30 Outpatient [facility] [id number] 00:00:00 00:00:00 2016-07-04 2016-07-04 Outpatient [facility] [id number] 13:13:54 13:13:54 2016-06-18 2016-06-18 Emergency [facility] [id number] 06:01:16 06:01:16 2016-06-18 2016-06-18 Emergency [facility] [id number] 03:35:11 03:35:11 2016-06-12 2016-06-12 Outpatient [facility] [id number] 15:43:01 15:43:01 2016-06-10 2016-06-10 Outpatient [facility] [id number] 15:07:17 15:07:17 2016-06-03 2016-06-03 Emergency [facility] [id number] 22:18:53 22:18:53 2016-06-03 2016-06-03 Emergency [facility] [id number] 21:25:09 21:25:09 2016-06-03 2016-06-03 Outpatient [facility] [id number] 13:20:06 13:20:06 2016-04-24 2016-04-24 Outpatient [facility] [id number] 15:07:56 15:07:56 2016-04-01 2016-04-01 Outpatient [facility] [id number] 00:00:00 00:00:00 2016-03-19 2016-03-19 Outpatient [facility] [id number] 09:28:43 09:28:43 2016-03-17 2016-03-17 Outpatient [facility] [id number] 14:23:13 14:23:13 2016-03-17 2016-03-17 Outpatient [facility] [id number] 11:07:20 11:07:20 2016-03-17 2016-03-17 Outpatient [facility] [id number] 10:16:12 10:16:12 2016-03-11 2016-03-11 Outpatient [facility] [id number] 11:14:32 11:14:32 2016-02-18 2016-02-18 Outpatient [facility] [id number] 10:29:58 10:29:58 2016-02-12 2016-02-12 Outpatient [facility] [id number] 11:32:37 11:32:37 2016-02-12 2016-02-12 Outpatient [facility] [id number] 10:50:02 10:50:02 2016-02-08 2016-02-08 Outpatient [facility] [id number] 09:42:08 09:42:08 Results Test Description Test Time [...] to the main Lab for analysis. POC [id number] 07:41:17 Test Item Value Reference Range Comments Glucose POC (test 268 mg/dL 70-115 Notify RN or MDIf you consider code=Glucose POC) your patient critically ill, the Eliza-Accu Check Infrom II meter should not be used for Glucose determination. Draw a venous Glucose and send to the main Lab for analysis. POC [id number] 20:06:15 Test Item Value Reference Range Comments Glucose POC (test 259 mg/dL 70-115 If you consider your patient code=Glucose POC) critically ill, the Eliza-Accu Check Infrom II meter should not be used for Glucose determination. Draw a venous Glucose and send to the main Lab for analysis. POC [id number] 16:24:53 Test Item Value Reference Range Comments Glucose POC (test 171 mg/dL 70-115 If you consider your patient code=Glucose POC) critically ill, the Eliza-Accu Check Infrom II meter should not be used for Glucose determination. Draw a venous Glucose and send to the main Lab for analysis. Troponin [id number] 13:20:34 Test Item Value Reference Range Comments [...] a diagnosis of chronic myocardial injury. Creatine [id number] 13:19:47 Test Item Value Reference Range Comments CK (test code=CK) 138 U/L 39-308 Creatine Kinase MB [id number] 13:18:50 Test Item Value Reference Range Comments CKMB (test code=CKMB) 4.8 ng/mL 0.0-4.9 Creatine Kinase MB [id number] 13:18:50 Test Item Value Reference Range Comments CKMB (test code=CKMB) 4.8 ng/mL 0.0-4.9 CKMB % (test code=CKMB %) 3.5 % 0.0-3.4 Drugs of Abuse Urine [id number] 13:05:26 Test Item Value Reference Range Comments [...] (test Negative Negative code=Cannabinoid Screen Ur) POC [id number] 11:32:18 Test Item Value Reference Range Comments Glucose POC (test 296 mg/dL 70-115 If you consider your patient code=Glucose POC) critically ill, the Eliza-Accu Check Infrom II meter should not be used for Glucose determination. Draw a venous Glucose and send to the main Lab for analysis. Thyroid Stimulating [id number] 07:33:08 Test Item Value Reference Range Comments TSH (test code=TSH) 1.020 mIU/mL 0.270-4.200 Hemoglobin [id number] 07:32:52 Test Item Value Reference Range Comments Hemoglobin A1c (test 11.0 % 4.8-5.9 Non Diabetic 4.8-5.9%Diabetic code=Hemoglobin A1c) <7.0% Lipid [id number] 07:27:53 Test Item Value Reference Range Comments Cholesterol Total (test 156 mg/dL 0-200 RISK OF HEART code=Cholesterol Total) DISEASEPublished by [place] [employer] Association Analyte Optimal Borderline Increased RiskCHOL [...] when Triglyceride is greater than 400. Magnesium [id number] 07:27:53 Test Item Value Reference Range Comments Magnesium Level (test code=Magnesium Level) 1.5 mg/dL 1.7-2.5 Phosphorus [id number] 07:27:53 Test Item Value Reference Range Comments Phosphorus Level (test code=Phosphorus Level) 2.80 mg/dL 2.70-4.50 Comprehensive Metabolic [id number] 07:27:52 Test Item Value Reference Range Comments [...] (test code=A/G Ratio) 1.4 ratio Comprehensive Metabolic [id number] 07:27:52 Test Item Value Reference Range Comments [...] is not provided, and the patient is -Liberian, multiply by 1.212. If sex is not [...] the National Kidney Foundation, http://nkdep.nih.gov Comprehensive Metabolic [id number] 07:27:52 Test Item Value Reference Range Comments [...] is not provided, and the patient is -Liberian, multiply by 1.212. If sex is not [...] is not provided, and the patient is -Liberian, multiply by 1.212. If sex is not [...] by the National Kidney Foundation, http://nkdep.nih.gov POC [id number] 07:20:10 Test Item Value Reference Range Comments Glucose POC (test 225 mg/dL 70-115 If you consider your patient code=Glucose POC) critically ill, the Eliza-Accu Check Infrom II meter should not be used for Glucose determination. Draw a venous Glucose and send to the main Lab for analysis. Creatine [id number] 07:19:03 Test Item Value Reference Range Comments CK (test code=CK) 119 U/L 39-308 Troponin [id number] 07:19:03 Test Item Value Reference Range Comments [...] of chronic myocardial injury. Creatine Kinase MB yxlphori1753-18-26 07:17:15 Test Item Value Reference Range Comments CKMB (test code=CKMB) 3.8 ng/mL 0.0-4.9 Creatine Kinase MB [id number] 07:17:15 Test Item Value Reference Range Comments CKMB (test code=CKMB) 3.8 ng/mL 0.0-4.9 CKMB % (test code=CKMB %) 3.2 % 0.0-3.4 Complete Blood Count without [id number] 06:59:02 Test Item Value Reference Range Comments [...] x10 IPF (test code=IPF) 0 % POC [id number] 06:12:19 Test Item Value Reference Range Comments Glucose POC (test 267 mg/dL 70-115 If you consider your patient code=Glucose POC) critically ill, the Eliza-Accu Check Infrom II meter should not be used for Glucose determination. Draw a venous Glucose and send to the main Lab for analysis. POC [id number] 05:00:38 Test Item Value Reference Range Comments Glucose POC (test 61 mg/dL 70-115 If you consider your patient code=Glucose POC) critically ill, the Eliza-Accu Check Infrom II meter should not be used for Glucose determination. Draw a venous Glucose and send to the main Lab for analysis. POC [id number] 04:01:42 Test Item Value Reference Range Comments Glucose POC (test 151 mg/dL 70-115 Notify RN or MDIf you consider code=Glucose POC) your patient critically ill, the Eliza-Accu Check Infrom II meter should not be used for Glucose determination. Draw a venous Glucose and send to the main Lab for analysis. POC [id number] 03:15:14 Test Item Value Reference Range Comments [...] 1.9 mmol/L 0.5-1.9 Acid, Plasma (Venous)) POC [id number] 02:08:55 Test Item Value Reference Range Comments [...] Site (test code=Draw Site) Brachial. R POC [id number] 01:25:51 Test Item Value Reference Range Comments Glucose POC (test 366 mg/dL 70-115 If you consider your patient code=Glucose POC) critically ill, the Eliza-Accu Check Infrom II meter should not be used for Glucose determination. Draw a venous Glucose and send to the main Lab for analysis. [id number] 22:30:52 Test Item Value Reference Range Comments Acetone (Ketones) (test code=Acetone (Ketones)) Negative Negative Lot # (test code=Lot #) [id number] Expiration Dt (test code=Expiration Dt) [id number] Neg Control (test code=Neg Control) Negative Pos Control (test code=Pos Control) Positive Urinalysis with Culture, if [id number] 22:29:03 Test Item Value Reference Range Comments [...] by rule Micro Ind?) GL_SJM_UA_MICRO_IND Comprehensive Metabolic [id number] 22:13:44 Test Item Value Reference Range Comments [...] is not provided, and the patient is -Liberian, multiply by 1.212. If sex is not [...] is not provided, and the patient is -Liberian, multiply by 1.212. If sex is not [...] by the National Kidney Foundation, http://nkdep.nih.gov Alcohol [id number] 22:02:32 Test Item Value Reference Range Comments Ethanol Level (test 0.30 g/dL 0.00-0.01 Critical results called to RN, code=Ethanol Level) Cathy Hardy at 10/02/2018 22:01:54 CDT_ by RS_. Read back and verified? _yesIntoxicated 0.080 g/dL or more Ethanol Inst (test 302 code=Ethanol Inst) Magnesium [id number] 21:53:52 Test Item Value Reference Range Comments Magnesium Level (test code=Magnesium Level) 1.6 mg/dL 1.7-2.5 Phosphorus [id number] 21:53:52 Test Item Value Reference Range Comments Phosphorus Level (test code=Phosphorus Level) 4.40 mg/dL 2.70-4.50 Automated [id number] 21:32:53 Test Item Value Reference Range Comments Neutro Auto (test code=Neutro Auto) 57.7 % 36.0-70.0 Lymph Auto (test code=Lymph Auto) 28.4 % 12.0-44.0 [place] Auto (test code=[place] Auto) 10.8 % 0.0-11.0 Eos, Auto (test code=Eos, Auto) 1.4 % 0.0-7.0 Basophil Auto (test code=Basophil Auto) 0.7 % 0.0-2.0 Neutro Absolute (test code=Neutro Absolute) 5.5 x10 1.6-7.4 Lymph Absolute (test code=Lymph Absolute) 2.69 x10 .50-4.60 [place] Absolute (test code=[place] Absolute) 1.02 x10 .00-1.20 Eos Absolute (test code=Eos Absolute) 0.13 x10 0.00-0.74 Baso Absolute (test code=Baso Absolute) 0.07 x10 0.00-0.21 IG [id number] 21:32:53 Test Item Value Reference Range Comments IG (test code=IG) 1.0 % 0.0-5.0 IG Abs (test code=IG Abs) 0 x10 Complete Blood Count with Rmbtklaggatu3414-22-43 21:32:52 Test Item Value Reference Range Comments [...] x10 IPF (test code=IPF) 0 % POC [id number] 20:55:21 Test Item Value Reference Range Comments [...] (test code=Draw Site) Radial. R COMPREHENSIVE METABOLIC [id number] 22:26:00 Test Item Value Reference Range Comments [...] ALKALINE PHOSPHATASE (test 255 UNITS/L 38-126 code=ALKP) [id number] 22:26:00 Test Item Value Reference Range Comments ALCOHOL (test code=ALC) 282.0 MG/DL <10 CALLED TO TRUDY Ortiz & READBACK ON 08/25/18 AT 2226 Elizabeth Madrigal CBC W/O [id number] 22:00:00 Test Item Value Reference Range Comments [...] code=NRBC#) 0.00 K/mm3 0.0-0.1 - XR CHEST [id number] 21:09:00 Patient Name: PRIYANKA EVANGELISTA Unit No: [id number] EXAMS: CPT CODE: [id number] XR CHEST 1V 53412 Location of dictation: B2 Portable chest one [...] Barney Orig Print D/T: S: 08/25/2018 (2112) [facility] NAME: PRIYANKA EVANGELISTA [id number] PHYS: VAN[place] [address] : 1965 AGE: 53 SEX: M LOC: [facility]ERS PHONE #: [phone] EXAM DATE: 08/25/2018 STATUS: PRE ER FAX #: [phone] RADIOLOGY NO: PAGE 1 Signed ReportGLUCOSE BEDSIDE [id number] 20:44:00 Test Item Value Reference Range Comments GLUCOSE BEDSIDE TESTING (test > 600 MG/DL 60-99 Notified Nurse~ code=GLUBED) XR Ribs w/ PA Chest [id number] 01:15:17Patient: PRIYANKA EVANGELISTA Date/Time07/20/2018 00: 30 CDTReason for ExamInjuryReportLOCATION: [id number]: 53-year-old male who presents with rib pain.COMMENT:A [...] LSigned (Electronic Signature): 07/20/2018 1:15 amGLUCOSE BEDSIDE [id number] 16:12:00 Test Item Value Reference Range Comments GLUCOSE BEDSIDE TESTING (test code=GLUBED) 271 MG/DL 60-99 [id number] 14:56:00 Test Item Value Reference Range Comments ALCOHOL (test code=ALC) 296.0 MG/DL <10 CALLED TO FANTASMA& READBACK ON 06/10/18 AT 1456 BY Romina Valdes HEPATIC FUNCTION [id number] 14:54:00 Test Item Value Reference Range Comments TOTAL PROTEIN (test code=PROT) 8.9 G/DL 6.2-7.6 ALBUMIN (test code=ALB) 5.2 G/DL 3.5-5.0 BILIRUBIN TOTAL (test code=BILT) 0.7 MG/DL 0.2-1.3 BILIRUBIN DIRECT (test code=BILD) 0.0 MG/DL 0.0-0.3 SGOT/AST (test code=AST) 48 UNITS/L 17-59 SGPT/ALT (test code=ALT) 39 UNITS/L 21-72 ALKALINE PHOSPHATASE (test code=ALKP) 317 UNITS/L 38-126 DRUGS OF ABUSE SCREEN [id number] 14:16:00 Test Item Value Reference Range Comments [...] off Value: 25 ng/mL code=PHENCU) BASIC METABOLIC [id number] 14:05:00 Test Item Value Reference Range Comments [...] CALCIUM (test code=CA) 9.5 MG/DL 8.4-10.2 URINALYSIS [id number] 14:00:00 Test Item Value Reference Range Comments [...] NO CULTURE Culture Chk code=UACULT) Criteria URINALYSIS [id number] 13:59:00 Test Item Value Reference Range Comments [...] NEEDED? (test code=UACULT) Criteria Culture Chk PROTHROMBIN [id number] 13:41:00 Test Item Value Reference Range Comments [...] systemic embolism. 3.0 - 4.5 CBC W/AUTO [id number] 13:30:00 Test Item Value Reference Range Comments [...] (test code=NRBC#) 0.00 K/mm3 0.0-0.1 GLUCOSE BEDSIDE [id number] 13:01:00 Test Item Value Reference Range Comments GLUCOSE BEDSIDE TESTING (test code=GLUBED) 427 MG/DL 60-99 Notified Nurse~ CHEMISTRY 8 [id number] 13:00:00 Test Item Value Reference Range Comments [...] Range: > or=60 ml/min/1.73 m2 CHEMISTRY 8 [id number] 13:00:00 Test Item Value Reference Range Comments [...] Range: > or=60 ml/min/1.73 m2 BASIC METABOLIC [id number] 11:41:00 Test Item Value Reference Range Comments [...] (test code=CA) 8.2 MG/DL 8.4-10.2 CBC W/AUTO [id number] 11:37:00 Test Item Value Reference Range Comments [...] RBC # (test code=NRBC#) 0.00 K/mm3 0.0-0.1 [id number] 11:00:00 Test Item Value Reference Range Comments ALCOHOL (test code=ALC) 323.0 MG/DL <10 CALLED TO BERTHA.T& READBACK ON 06/08/18 AT 1100 BY Romina Valdes - XR HIP W/PEL UNI 2+V [id number] 09:57:00 Patient Name: PRIYANKA EVANGELISTA Unit No: [id number] EXAMS: CPT CODE: [id number] XR HIP W/PEL UNI 2+[place] [address] Right hip History: pain Comparison: May 31, [...] Carter Chatman, RT(R) Transcrpt Date/Tm/Trnsp: 06/08 (0957) t[facility] OrigPrint D/T: S: 06/08/2018 (1001) [facility] NAME: PRIYANKA EVANGELISTA [id number] [address] PHYS: [place] [address] : 1965 AGE : 53 SEX: M LOC: UNK PHONE #: [phone] EXAM DATE: 06/08/2018 STATUS: DEP ER FAX #: [phone] RADIOLOGY NO: PAGE 1 Signed Report- XR HIP W/PEL UNI 2+V [id number] 09:57:00 Patient Name: PRIYANKA EVANGELISTA Unit No: [id number] EXAMS: CPT CODE: [id number] XR HIP W/PEL UNI 2+[place] [address] Right hip History: pain Comparison: May 31, [...] (0957) t.SDR.PMT OrigPrint D/T: S: 02/2019 (1001) [facility] NAME: PRIYANKA EVANGELISTA [id number] PHYS : [place] [address] : 02/1966 AGE: 53 SEX: M LOC: Z.ERS PHONE #: [phone] EXAM DATE: 06/08/2018 STATUS: REG ER FAX #: [phone] RADIOLOGY NO: PAGE 1 Signed ReportGLUCOSE BEDSIDE [id number] 12:55:00 Test Item Value Reference Range Comments GLUCOSE BEDSIDE TESTING (test code=GLUBED) 160 MG/DL 60-99 GLUCOSE BEDSIDE [id number] 10:49:00 Test Item Value Reference Range Comments GLUCOSE BEDSIDE TESTING (test code=GLUBED) 186 MG/DL 60-99 BASIC METABOLIC [id number] 06:15:00 Test Item Value Reference Range Comments [...] (test code=CA) 8.8 MG/DL 8.4-10.2 CBC W/AUTO [id number] 05:54:00 Test Item Value Reference Range Comments [...] (test code=NRBC#) 0.00 K/mm3 0.0-0.1 GLUCOSE BEDSIDE [id number] 21:08:00 Test Item Value Reference Range Comments GLUCOSE BEDSIDE TESTING (test code=GLUBED) 198 MG/DL 60-99 GLUCOSE BEDSIDE [id number] 18:21:00 Test Item Value Reference Range Comments GLUCOSE BEDSIDE TESTING (test code=GLUBED) 217 MG/DL 60-99 [id number] 13:23:00 Test Item Value Reference Range Comments MAGNESIUM (test code=MAG) 1.6 MG/DL 1.6-2.3 GLUCOSE BEDSIDE [id number] 12:58:00 Test Item Value Reference Range Comments GLUCOSE BEDSIDE TESTING (test code=GLUBED) 334 MG/DL 60-99 GLUCOSE BEDSIDE [id number] 12:40:00 Test Item Value Reference Range Comments GLUCOSE BEDSIDE TESTING (test code=GLUBED) 193 MG/DL 60-99 GLUCOSE BEDSIDE [id number] 10:59:00 Test Item Value Reference Range Comments GLUCOSE BEDSIDE TESTING (test code=GLUBED) 173 MG/DL 60-99 BASIC METABOLIC [id number] 06:55:00 Test Item Value Reference Range Comments [...] (test code=CA) 8.8 MG/DL 8.4-10.2 GLUCOSE BEDSIDE [id number] 06:37:00 Test Item Value Reference Range Comments GLUCOSE BEDSIDE TESTING (test code=GLUBED) 220 MG/DL 60-99 CBC W/AUTO [id number] 06:17:00 Test Item Value Reference Range Comments [...] RBC # (test code=NRBC#) 0.00 K/mm3 0.0-0.1 [id number] 21:42:00 Test Item Value Reference Range Comments MAGNESIUM (test code=MAG) 1.9 MG/DL 1.6-2.3 GLUCOSE BEDSIDE [id number] 21:08:00 Test Item Value Reference Range Comments GLUCOSE BEDSIDE TESTING (test code=GLUBED) 101 MG/DL 60-99 GLUCOSE BEDSIDE [id number] 15:54:00 Test Item Value Reference Range Comments GLUCOSE BEDSIDE TESTING (test code=GLUBED) 261 MG/DL 60-99 Notified Nurse~ GLUCOSE BEDSIDE [id number] 11:18:00 Test Item Value Reference Range Comments GLUCOSE BEDSIDE TESTING (test code=GLUBED) 321 MG/DL 60-99 Notified Nurse~ BASIC METABOLIC [id number] 08:23:00 Test Item Value Reference Range Comments SODIUM (test code=NA) 121 MMOL/L 137-145 POTASSIUM (test code=K) 5.0 MMOL/L 3.5-5.1 CHLORIDE (test code=CL) 84 MMOL/L 98-107 CARBON DIOXIDE (test code=CO2) 27 MMOL/L 22-30 ANION GAP (test code=GAP) 15 MMOL/L 14-24 GLUCOSE (test code=GLU) 344 MG/DL 74-106 [facility] READBACK ON 06/01/18 AT 0822 BY Romina Valdes BLOOD UREA NITROGEN (test 14 MG/DL 9-20 code=BUN) GLOMERULAR FILTRATION RATE > 60 Reporting units: ml/min/1.73 (test code=GFR) m2 (Modified MDRD Formula)Reference Range: > or=60 ml/min/1.73 m2 CREATININE (test code=CREAT) 0.80 MG/DL 0.66-1.25 CALCIUM (test code=CA) 8.9 MG/DL 8.4-10.2 CBC W/AUTO [id number] 07:18:00 Test Item Value Reference Range Comments [...] (test code=NRBC#) 0.00 K/mm3 0.0-0.1 GLUCOSE BEDSIDE [id number] 06:36:00 Test Item Value Reference Range Comments GLUCOSE BEDSIDE TESTING (test code=GLUBED) 296 MG/DL 60-99 [id number] 22:45:00 Test Item Value Reference Range Comments MAGNESIUM (test code=MAG) 1.2 MG/DL 1.6-2.3 GLUCOSE BEDSIDE [id number] 19:56:00 Test Item Value Reference Range Comments GLUCOSE BEDSIDE TESTING (test code=GLUBED) 316 MG/DL 60-99 Notified Nurse~ - XR HIP W/PEL UNI 2+V [id number] 13:13:00 Patient Name: PRIYANKA EVANGELISTA Unit No: [id number] EXAMS: CPT CODE: [id number] XR HIP W/PEL UNI 2+[place] [address] Right hip History: RIGHT FEMUR FRACTURE Comparison: [...] t.SDR.PMT Orig Print D/T: S: 05/31/2018 (1316) [facility] NAME: PRIYANKA EVANGELISTA [address] [place] [address] PHYS: [place] [address] : 1965 AGE: 53 SEX: M LOC: [employer] PHONE #: [phone] EXAM DATE: 05/31/2018 STATUS: DIS IN FAX #: [phone] RADIOLOGY NO: PAGE 1 Signed Report- XR HIP W/ PEL UNI 2+V [id number] 13:13:00 Patient Name: PRIYANKA EVANGELISTA Unit No: [id number] EXAMS: CPT CODE: [id number] XR HIP W/PEL UNI 2+[place] [address] Right hip History: RIGHT FEMUR FRACTURE Comparison: [...] (1313) t.ANGLER.PMT Orig Print D/T: S: 05/31/2018 (8116) [facility] NAME: PRIYANKA EVANGELISTA [address] PHYS: [place] [address] : 1965 AGE: 53 SEX: M LOC: Z.534 A PHONE #: [phone] EXAM DATE: 05/31/2018 STATUS: ADM IN FAX #: [phone] RADIOLOGY NO: PAGE 1 Signed [id number] 12:56:00 Test Item Value Reference Range Comments HEMOGLOBIN (test code=HGB) 11.1 G/DL 12.4-16.7 Specimen comments: Patient in PACUComments to [employer]: Patient in [id number] 12:56:00 Test Item Value Reference Range Comments HEMATOCRIT (test code=HCT) 34.1 % 35.9-49.5 Specimen comments: Patient in PACUComments to [employer]: Patient in PACUGLUCOSE BEDSIDE [id number] 09:21:00 Test Item Value Reference Range Comments [...] HIGH.........130-159 mg/dL HIGH.........160-189 mg/dL VERY HIGH.........>/=190 mg/dL [id number] 07:50:00 Test Item Value Reference Range Comments MAGNESIUM (test code=MAG) 1.3 MG/DL 1.6-2.3 THYROID STIMULATING [id number] 07:50:00 Test Item Value Reference Range Comments [...] HIGH.........130-159 mg/dL HIGH.........160-189 mg/dL VERY HIGH.........>/=190 mg/dL [id number] 07:30:00 Test Item Value Reference Range Comments MAGNESIUM (test code=MAG) 1.3 MG/DL 1.6-2.3 THYROID STIMULATING [id number] 07:30:00 Test Item Value Reference Range Comments THYROID STIMULATING HORMONE (test code=TSH) MIU/L 0.465-4.68 LIPID PROFILE (CORONARY RISK)2018-05-31 07:19:00 Test Item Value Reference Range Comments TRIGLYCERIDES (test code=TRIG) 93 MG/DL TRIGLYCERIDES REFERENCE RANGE:Normal: <150 mg/dLBorderline High: 150-199 mg/dLHigh: 200-499 mg/dLVery High: >=500 mg/dL CHOLESTEROL (test code=CHOL) 191 MG/DL <200 HDL CHOLESTEROL (test 58 MG/DL 40-59 code=HDL) LIPOPROTEIN LDL (test MG/DL 0-99 code=LDL) [id number] 07:19:00 Test Item Value Reference Range Comments MAGNESIUM (test code=MAG) 1.3 MG/DL 1.6-2.3 THYROID STIMULATING [id number] 07:19:00 Test Item Value Reference Range Comments THYROID STIMULATING HORMONE (test code=TSH) MIU/L 0.465-4.68 GLYCOSYLATED HEMOGLOBIN [id number] 22:01:00 Test Item Value Reference Range Comments [...] (test 260 MG/DL 70-110 code=MBG) COMPREHENSIVE METABOLIC [id number] 20:45:00 Test Item Value Reference Range Comments SODIUM (test code=NA) 139 MMOL/L 137-145 POTASSIUM (test code=K) 4.9 MMOL/L 3.5-5.1 CHLORIDE (test code=CL) 101 MMOL/L 98-107 CARBON DIOXIDE (test code=CO2) 24 MMOL/L 22-30 ANION GAP (test code=GAP) 19 MMOL/L 14-24 GLUCOSE (test code=GLU) 332 MG/DL 74-106 CALLED TO [facility] CUMMINS IJK=373& READBACK ON 05/30/18 AT 5 BY Jeremías [...] (test 192 UNITS/L 38-126 code=ALKP) GLUCOSE BEDSIDE [id number] 16:40:00 Test Item Value Reference Range Comments GLUCOSE BEDSIDE TESTING (test code=GLUBED) 314 MG/DL 60-99 URINALYSIS [id number] 15:07:00 Test Item Value Reference Range Comments [...] NEEDED? (test code=UACULT) Criteria Culture Chk URINALYSIS [id number] 15:07:00 Test Item Value Reference Range Comments [...] CULTURE Culture Chk code=UACULT) Criteria GLUCOSE BEDSIDE [id number] 12:16:00 Test Item Value Reference Range Comments GLUCOSE BEDSIDE TESTING (test code=GLUBED) 368 MG/DL 60-99 COMPREHENSIVE METABOLIC [id number] 11:34:00 Test Item Value Reference Range Comments [...] ALKALINE PHOSPHATASE (test 204 UNITS/L 38-126 code=ALKP) [id number] 11:34:00 Test Item Value Reference Range Comments ALCOHOL (test code=ALC) 348.0 MG/DL <[address] ALFONSO& READBACK ON 05/30/18 AT 1133 BY Elizabeth Machado PROTHROMBIN [id number] 11:11:00 Test Item Value Reference Range Comments [...] recurrent systemic embolism. 3.0 - 4.5 PTT [id number] 11:11:00 Test Item Value Reference Range Comments PTT ACTIVATED (test code=APTT) 25.5 SECONDS 22.0-33.0 CBC W/AUTO [id number] 10:57:00 Test Item Value Reference Range Comments [...] 0.0-0.1 - XR HIP W/PEL UNI 2+V [id number] 09:50:00 Patient Name: PRIYANKA EVANGELISTA Unit No: [id number] EXAMS: CPT CODE: [id number] XR HIP W/PEL UNI 2+[place] [address] Location code: R 16 Right hip 2 [...] (0950) AlbinaDRB1 Orig Print D/T: S: 05/30/2018 (6053) [facility] NAME: PRIYANKA EVANGELISTA [address] PHYS: [place] [address] : 1965 AGE: 53 SEX: M LOC: [employer] PHONE #: [phone] EXAM DATE: 05/30/2018 STATUS: DIS IN FAX #: [phone] RADIOLOGY NO: PAGE 1 Signed Report- XR HIP W/PEL UNI 2+V [id number] 09:50:00 Patient Name: PRIYANKA EVANGELISTA Unit No: [id number] EXAMS: CPT CODE: [id number] XR HIP W/PEL UNI 2+[place] [address] Location code: R 16 Right hip 2 [...] Naveed(R); Holger Goff (RT)(R) Transcrpt Date/Tm/Trnsp: 05/30/2018 (9050) AlbinaDRB1 Orig Print D/T: S: (0953) [facility] NAME: PRIYANKA EVANGELISTA [id number] PHYS : [place] [address] : 02/1966 AGE: 53 SEX: M LOC: .[facility] PHONE #: [phone] EXAM DATE: STATUS: PRE ER FAX #: [phone] RADIOLOGY NO: PAGE 1 Signed Report- XR HIP W/PEL UNI 2+V [id number] 14:25:00 Patient Name: PRIYANKA EVANGELISTA Unit No: [id number] EXAMS: CPT CODE: [id number] XR HIP W/PEL UNI 2+[place] [address] Fluoroscopy Left hip nailing FINDINGS: An intramedullary [...] (1425) tLEONORR.RK5 Orig Print D/T:S: 05/16/2016 (1428) [facility] NAME: PRIYANKA EVANGELISTA [address] PHYS: [place] [address] : 1965 AGE: 51 SEX: M LOC: [facility] PHONE #: [phone] EXAM DATE: 05/16/2016 STATUS: UNK FAX #: [phone] RADIOLOGY NO: PAGE 1 Signed Report- XR WRIST 3+V [id number] 19:15:00 Patient Name: PRIYANKA EVANGELISTA Unit No: [id number] EXAMS: CPT CODE: [id number] XR WRIST 3+[place] [address] Location n 13 Left Wrist, 3 views [...] Frederick Orig Print D/T: S: 01/31/2016 (1917) [facility] NAME: PRIYANKA EVANGELISTA [id number] PHYS: [place] [address] : 1965 AGE: 50 SEX: M LOC: [employer] PHONE #: [phone] EXAM DATE: 2015 STATUS: [employer] FAX #: [phone] RADIOLOGY NO: PAGE 1 Signed Report
--- OUTSIDE RECORDS SUMMARY | 2019-07-02 10:39 | XMS REPORT ---
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 Medications Medication Code Code Instructions Start End Status Dosage System Date Date Duloxetine HCl [facility] 73862238118 60 MG Oral Active TAKE 1 CAPSULE TWICE DAILY ProAir HFA [facility] 91448256953 108 (90 Base) Active 2 puffs as MCG/ACT needed Inhalation every 6 hrs Folic Acid [facility] 49319645464 1 MG Orally Active 1 tablet Once a day One Touch NDC 0 Once twice a Active one Delica test day strips Gabapentin [facility] 73536969170 600 MG Oral Active TAKE 1 TABLET BY MOUTH THREE TIMES A DAY Fenofibrate [facility] 34310558759 160 MG Oral Active take 1 tablet Once a day by mouth every day with supper Lisinopril [facility] 81057712120 20 MG Oral Once Active take 1 tablet a day by mouth every day Levetiracetam [facility] 42037312180 1000 MG Orally Dec Active 1 tablet Once a day 2018 Atorvastatin [facility] 64272744106 20 MG Orally Dec Active 1 tablet Calcium Once a day 2018 Metformin HCl [facility] 06707200012 1000 MG Orally Active 1 tablet with a BID meal Trazodone HCl [facility] 11843454273 100 MG Orally Dec Active 1 tablet at Once a day , bedtime 2018 Pantoprazole [facility] 53110603705 40 MG Orally Active 1 tablet Sodium Once a day Tramadol HCl [facility] 58945531443 50 MG Orally Active 1 tablet as Once a day PRN needed SEVERE PAIN Vicodin [facility] 05400724212 5-300 MG Orally Dec Inactive 1 tablet as every 6 hrs 17, needed 2018 Humulin R [facility] 11571049747 100 UNIT/ML Dec Active inject 2-18 Injection twice 13, units per a day 2019 sliding scale OneTouch Verio [facility] 81779161601 - In Vitro 4 Dec Active 1 test strip times a day 2018 Tresiba [facility] 35347722093 200 UNIT/ML Dec Active inject 30 units FlexTouch Subcutaneous 17, Once a day 2018 Cymbalta [facility] 33716790359 60 MG Orally Active 1 capsule Twice a day Insulin Syringe [facility] 66961242787 30G X 1/2 Active 1 syringe subcutaneously six times a day One Touch NDC 0 Active not defined Delica Lancets Humulin N [facility] 10218642474 100 UNIT/ML Inactive INJECT 20 UNITS Subcutaneous SUBCUTANEOUSLY 2 TIMES A DAY WITH MEALS Results No Known Results Summary Purpose eClinicalWorks Submission
--- OUTSIDE RECORDS SUMMARY | 2019-07-02 10:39 | XMS REPORT | Summary of Care ---
:1965 Author Organization [facility] - Health Address [address] [place] [address] Care Team Providers Name Role Phone Pcp, Patient Does Not Have A Primary Care Provider Encounter Details Date Type Department Care Team Description 07/01/2019 Orders Only [facility] Doctor Unassigned, No [address] [facility] [place] [address] [address] [place] [address] Allergies No Known Allergiesdocumented as of this encounter (statuses as of 07/01/2019) Medications Medication Sig Dispensed Refills Start Date End Date Status clindamycin 300 mg Take 1 capsule by 21 capsule 0 12/29/2018 Active capsuleIndications: mouth 3 (three) Cellulitis of right times daily. hand metFORMIN 500 mg Take 2 tablets by 14 tablet 0 12/29/2018 Active tabletIndications: mouth 2 (two) Cellulitis of right times daily. hand ibuprofen 800 mg Take 1 tablet by 21 tablet 0 12/29/2018 Active tabletIndications: mouth every 8 Cellulitis of right (eight) hours as hand needed (PAIN). documented as of this encounter (statuses as of 07/01/2019) Active Problems Not on filedocumented as of this encounter (statuses as of 07/01/2019) Social History Tobacco Use Types Packs/Day Years Used Date Never Assessed Sex Assigned at Date Recorded Not on file Job Start Date Occupation Industry Not on file Not on file Not on file Travel History Travel Start Travel End No recent travel history available. documented as of this encounter Last Filed Vital Signs Not on filedocumented in this encounter Plan of Treatment Health Maintenance Due Date Last Done Comments DTaP,Tdap,and Td Vaccines (1 - 1984 Tdap) COLONOSCOPY 2015 Zoster Recombinant Vaccine 2015 (SHINGRIX) (1 of 2) INFLUENZA VACCINE (#1) 2018 PNEUMOCOCCAL 0-64 YEARS COMBINED Aged Out No longer eligible based on SERIES patient's age to complete this topic documented as of this encounter Procedures Procedure Name Priority Date/Time Associated Diagnosis Comments CONSENT/REFUSAL FOR Routine 07/01/2019 12:59 PM CDT DIAGNOSIS AND TREATMENT documented in this encounter Results Not on filedocumented in this encounter Insurance Payer Benefit Plan / Subscriber ID Effective Dates Phone Address Type Group [facility] xxxxxxxxx 2018-Present Medicaid COMM PLAN - PLUS MANAGED MEDICAID documented as of this encounter
--- OUTSIDE RECORDS SUMMARY | 2019-07-02 10:39 | XMS REPORT ---
[...] Problem Depression with anxiety F41.8 Active Problem residential (current) use of insulin Z79.4 Active Problem GERD without esophagitis K21.9 Active Medications Medication Code System Code Instructions Start Date End Date Status Dosage Gabapentin [facility] 94976815949 600 MG Orally Active 1 tablet three times a day Results No Known Results Summary Purpose eClinicalWorks Submission
--- OUTSIDE RECORDS SUMMARY | 2019-07-02 10:39 | XMS REPORT ---
[...] Status Dosage System Date Date Metformin HCl [facility] 16742112865 500 MG Oral Inactive TAKE 2 TABLETS BY MOUTH EVERY DAY Pantoprazole ND 17721559845 40 MG Orally Active 1 tablet Sodium Once a day Humulin R ND 28654591165 100 UNIT/ML Mar 11, Active inject Injection twice 2019 2-18 units a day per sliding scale One Touch NDC 0 Once twice a Inactive one Delica test day strips OneTouch Verio [facility] 17165243878 - In Vitro Mar 11, Active 1 test times a day 2018 strip Cymbalta ND 60269108514 60 MG Orally Active 1 capsule Twice a day Duloxetine HCl ND 22262265046 60 MG Oral Inactive TAKE 1 CAPSULE TWICE DAILY Results No Known Results Summary Purpose eClinicalWorks Submission
--- OUTSIDE RECORDS SUMMARY | 2019-07-02 10:40 | XMS REPORT | Summary of Care ---
:1965 Author Organization [facility] Address [address] [place] [address] Care Team Providers Name Role Phone Pcp, Patient Does Not Have A Primary Care Provider Reason for Referral Radiology Services (STAT) Status Reason Specialty Diagnoses / Referred By Referred To Procedures Contact Contact New Request Diagnostic Diagnoses Fever in adult María Elena Chapman Radiology Procedures XR CHEST 1 VW COVID XR CHEST 1 VW MD Mame [address] [place] [address] [id number] [place] [address] Reason for Visit Reason Comments Hip Pain Auth/Cert Status Reason Specialty Diagnoses / Referred By Referred To Procedures Contact Contact Emergency [facility] [address] [place] [address] [place] [address] Encounter Details Date Type Department Care Team Description 07/01/2019 Emergency ADC-Emergency María Elena Chapman S, Fever in adult ( Primary Dx); Department Chronic left hip pain; [address] [place] [address] [address] [facility] Chronic kidney disease, unspecified CKD stage; [place] [address] [id number] Uncontrolled type 2 diabetes mellitus with hyperglycemia [phone] [place] [address] Allergies No Known Allergiesdocumented as of this [...] encounter (statuses as of 07/01/2019) Active Problems No known active problemsdocumented as of this encounter (statuses as of 2019) Social History Tobacco Use Types Packs/Day Years Used Date Never Assessed Sex Assigned at Date Recorded Not on file Job Start Date Occupation Industry Not on file Not on file Not on file Travel History Travel Start Travel End No recent travel history available. documented as of this encounter Last Filed Vital Signs Vital Sign Reading Time Taken Comments Blood Pressure 117/78 07/01/2019 7:00 PM CDT Pulse 109 07/01/2019 7:00 PM CDT Temperature 37.2 C (99 F) 07/01/2019 7:00 PM CDT Respiratory Rate 17 07/01/2019 7:00 PM CDT Oxygen Saturation 99% 07/01/2019 7:00 PM CDT Inhaled Oxygen Concentration - - Weight 77.1 kg (170 lb) 07/01/2019 1:44 PM CDT Height - - Body Mass Index 23.71 12/29/2018 10:37 PM CDT documented in this encounter Discharge Instructions María Elena Torres MD - 07/01/2019 DIAGNOSIS Diagnoses that have been ruled out: None Diagnoses that are still under consideration: None Final diagnoses: Fever in adult Chronic left hip pain Chronic kidney disease, unspecified CKD stage Uncontrolled type 2 diabetes mellitus with hyperglycemia NO LIFE-THREATENING FINDINGS ON TODAY'S EXAM. PROCEDURES IN THE ER TODAY: Orders Placed This Encounter Procedures XR CHEST 1 VW COVID CBC WITH DIFF COMP. METABOLIC PANEL (66896) BLOOD CULTURE SCREEN BLOOD CULTURE SCREEN ADC / LCC - DRUG SCREEN TRIAGE URINALYSIS URINE CULTURE ADC,CLC OR LCC ONLY - INFLUENZA A & B DIRECT ANTIGEN Lactic Acid Whole Blood POCT GLUCOSE(AGE >30DAYS) CBC WITH DIFFERENTIAL CORONAVIRUS COVID-19 TESTING POCT GLUCOSE (AUTOMATED) MEDICATIONS ADMINISTERED IN THE ER TODAY AND DISCHARGE MEDICATIONS: Orders Placed This Encounter Medications NaCl 0.9% (NS) IV infusion 1,000 mL acetaminophen (TYLENOL) tablet 1,000 mg NaCl 0.9% (NS) IV infusion 1,000 mL FOLLOW-UP RECOMMENDATIONS: RECOMMEND FOLLOW-UP WITH YOUR PRIMARY CARE PROVIDER MAY FOLLOW-UP WITH A PROVIDER OF YOUR CHOICE, SUCH : 1. A PHYSICIAN OF YOUR CHOICE 2. [facility], . LOCATIONS IN [facility] 3. [facility], [address], [place]; OR, IF YOU WISH TO FOLLOW-UP WITHIN THE [facility], MAY TRY THESE OPTIONS (CLINIC APPOINTMENTS AVAILABLE ON [id number] BASIS): 1. SCHEDULE AN APPOINTMENT ONLINE AT [email or web address] 2. OR CALL THE [facility] AT OR 3. OR CALL YOUR [facility] PHYSICIAN'S OFFICE DIRECTLY IF YOU ARE ALREADY AN ESTABLISHED [facility] PATIENT. RETURN TO ER FOR WORSENING OF SYMPTOMS documented in this encounter Plan of Treatment Name Type Priority Associated Diagnoses Date/Time BLOOD CULTURE SCREEN LAB STAT Fever in adult 07/01/2019 2:35 PM CDT BLOOD CULTURE SCREEN LAB STAT Fever in adult 07/01/2019 2:35 PM CDT Name Type Priority Associated Diagnoses Order Schedule ADC / LCC - DRUG SCREEN LAB Routine Fever in adult ONCE for 1 Occurrences TRIAGE starting 07/01/2019 until 07/01/2019 URINALYSIS LAB Routine Fever in adult ONCE for 1 Occurrences starting 07/01/2019 until 07/01/2019 URINE CULTURE LAB Routine Fever in adult ONCE for 1 Occurrences starting 07/01/2019 until 07/01/2019 Health Maintenance Due Date Last Done Comments DTaP,Tdap,and Td Vaccines (1 - 1984 Tdap) COLONOSCOPY 2015 Zoster Recombinant Vaccine 2015 (SHINGRIX) (1 of 2) INFLUENZA VACCINE (#1) 2018 PNEUMOCOCCAL 0-64 YEARS COMBINED Aged Out No longer eligible based on SERIES patient's age to complete this topic documented as of this encounter Procedures Procedure Name Priority Date/Time Associated Comments Diagnosis POCT GLUCOSE(AGE SHIREEN 07/01/2019 4:03 Fever in adult Results for this >30DAYS) PM CDT procedure are in the results section. CORONAVIRUS COVID-19 STAT 07/01/2019 2:56 Fever in adult Results for this TESTING PM CDT procedure are in the results section. XR CHEST 1 VW COVID STAT 07/01/2019 2:40 Fever in adult Results for this PM CDT procedure are in the results section. LACTIC ACID WHOLE STAT 07/01/2019 2:37 Fever in adult Results for this BLOOD PM CDT procedure are in the results section. ADC,CLC OR LCC ONLY - STAT 07/01/2019 2:37 Fever in adult Results for this INFLUENZA A & B PM CDT procedure are in DIRECT ANTIGEN the results section. CBC WITH DIFFERENTIAL STAT 07/01/2019 2:35 Fever in adult Results for this PM CDT procedure are in the results section. CBC WITH DIFFERENTIAL STAT 07/01/2019 2:35 Fever in adult Results for this PM CDT procedure are in the results section. COMP. METABOLIC PANEL STAT 07/01/2019 2:35 Fever in adult Results for this (37486) PM CDT procedure are in the results section. POCT GLUCOSE Routine 07/01/2019 2:22 Results for this (AUTOMATED) PM CDT procedure are in the results section. EKG-12 LEAD Routine 07/01/2019 1:55 PM CDT NOTICE OF PRIVACY Routine 07/01/2019 12:59 PRACTICES PM CDT documented in this encounter Results POCT GLUCOSE(AGE >30DAYS) (07/01/2019 4:03 PM CDT) [facility] POCT Glu (age>30days) 294 (A) 70 - 110 mg/dL Specimen Blood - CAPILLARY CORONAVIRUS COVID-19 TESTING (07/01/2019 2:56 PM CDT) [facility] SARS-CoV-2 Not Detected Not Detected [facility] Specimen Swab - NASOPHARYNGEAL SWAB Narrative Performed At [facility] COVID-19 Assay is an isothermal nucleic [facility] acid amplification test intended for the qualitative detection of nucleic acid from SARS-CoV-2 viral RNA in nasopharyngeal ([employer]) specimens. It is used under Emergency Use Authorization (EUA) by FDA. The limit of detection (LOD) of the assay is 125 Genome Equivalents/mL. A positive result is indicative of the presence of SARS-CoV-2 RNA. Clinical correlation with patient history and other diagnostic information is necessary to determine patient infection status. A negative (Not Detected) result does not preclude SARS-CoV-2 infection and should not be used as the sole basis for patient management decisions. Invalid: Please collect a new specimen for repeat patient testing if clinically indicated. Performing Organization Address City/State/Zipcode Phone Number [facility] CLIA: [id number], [address] [place] [address] XR CHEST 1 VW COVID (07/01/2019 2:40 PM CDT) Specimen Impressions Performed At PACS/VR/DOSE No acute intrathoracic abnormality, specifically no detectable radiographic findings to suggest COVID-19 pneumonia. Disclaimer: Generally, the findings on chest imaging in COVID-19 are not specific, and overlap with other infections, including influenza, H1N1, SARS and MERS. According to the Centers for Disease Control (CDC) and recent statement of the [employer], viral testing remains the only specific method of diagnosis. Confirmation with the viral test is required, even if radiologic findings are suggestive of COVID-[address]. Preliminary Report Dictated by Resident: Antonia Salomon I, Maile Tee MD., have reviewed this study and agree with the above report. Narrative Performed At PROCEDURE: CHEST, SINGLE VIEW PACS/VR/DOSE CLINICAL INDICATION: Fever COMPARISON: None FINDINGS: Lungs: Aside from mild central vascular congestion, the lungs are clear without focal consolidation. No pleural effusion or pneumothorax is seen. The heart is normal in size. No acute bony abnormality. Postsurgical changes of left shoulder arthroplasty are partially visualized. Procedure Note [facility], Radiant Results Inft User - 07/01/2019 4:08 PM CDT PROCEDURE: CHEST, SINGLE VIEW CLINICAL INDICATION: Fever COMPARISON: None FINDINGS: Lungs: Aside from mild central vascular congestion, the lungs are clear without focal consolidation. No pleural effusion or pneumothorax is seen. The heart is normal in size. No acute bony abnormality. Postsurgical changes of left shoulder arthroplasty are partially visualized. IMPRESSION No acute intrathoracic abnormality, specifically no detectable radiographic findings to suggest COVID-19 pneumonia. Disclaimer: Generally, the findings on chest imaging in COVID-19 are not specific, and overlap with other infections, including influenza, H1N1, SARS and MERS. According to the Centers for Disease Control (CDC) and recent statement of the [employer], viral testing remains the only specific method of diagnosis. Confirmation with the viral test is required, even if radiologic findings are suggestive of COVID-[address] Preliminary Report Dictated by Resident: Antonia Salomon I, Maile Tee MD., have reviewed this study and agree with the above report. Performing Organization Address City/State/Zipcode Phone Number PACS/VR/DOSE Lactic Acid Whole Blood (07/01/2019 2:37 PM CDT) LACTIC ACID 1.02 0.50 - 2.20 mmol/L [facility] Specimen Blood - VENOUS Performing Organization Address [facility] Phone Number [facility] CLIA: [id number], [address], [place] [address] [phone] ADC,CLC OR LCC ONLY - INFLUENZA A & B DIRECT ANTIGEN (07/01/2019 2:37 PM CDT) Influenza A Negative Negative [facility] Influenza B Negative Negative [facility] Specimen Swab - NARE, LEFT SIDE Performing Organization Address [facility] Phone Number [facility] CLIA: [id number], [address] [place], [place] [address] [address] CBC WITH DIFFERENTIAL (07/01/2019 2:35 PM CDT) WBC 10.20 4.20 - 10.70 [facility] 10*3/L [facility] RBC 2.78 (L) 4.26 - 5.52 [facility] 10*6/L HOSPITAL LABORATORY HGB 8.2 (L) 12.2 - 16.4 [facility] g/dL [facility] HCT 25.1 (L) 38.4 - 49.3 % [facility] MCV 90.3 81.7 - 95.6 fL [facility] MCH 29.5 26.1 - 32.7 pg [facility] MCHC 32.7 31.2 - 35.0 [facility] g/dL [facility] RDW-SD 47.5 38.5 - 51.6 fL [facility] RDW-CV 14.4 12.1 - 15.4 % [facility] PLT 210 150 - 328 [facility] 10*3/L [facility] MPV 9.8 9.8 - 13.0 fL [facility] NRBC/100 WBC 0.0 0.0 - 10.0 /100 [facility] WBCs [facility] NRBC x10^3 <0.01 10*3/L [facility] GRAN MAT (NEUT) % 86.4 % [facility] IMM GRAN % 0.50 % [facility] LYMPH % 4.7 % [facility] MONO % 8.0 % [facility] EOS % 0.1 % [facility] BASO % 0.3 % [facility] GRAN MAT x10^3(ANC) 8.81 (H) 1.99 - 6.95 [facility] 10*3/uL [facility] IMM GRAN x10^3 0.05 0.00 - 0.06 [facility] 10*3/uL [facility] LYMPH x10^3 0.48 (L) 1.09 - 3.23 [facility] 10*3/uL [facility] MONO x10^3 0.82 0.36 - 1.02 [facility] 10*3/uL [facility] EOS x10^3 <0.03 (L) 0.06 - 0.53 [facility] 10*3/uL [facility] BASO x10^3 0.03 0.01 - 0.09 [place] [address]*3/uL [facility] Specimen Blood - VENOUS Performing Organization Address City/State/Zipcode Phone Number [facility] CLIA: [id number], [address], [place] [id number] [phone] COMP. METABOLIC PANEL ([id number]) (07/01/2019 2:35 PM CDT) NA 137 135 - 145 [facility] mmol/L [facility] K 5.0 3.5 - 5.0 [facility] mmol/L [facility] CL 97 (L) 98 - 108 mmol/L [facility] CO2 TOTAL 21 (L) 23 - 31 mmol/L [facility] AGAP 19 (H) 2 - 16 [facility] BUN 32 (H) 7 - 23 mg/dL [facility] GLUCOSE 279 (H) 70 - 110 mg/dL [facility] CREATININE 1.73 (H) 0.60 - 1.25 [facility] mg/dL [facility] TOTAL BILI 0.5 0.1 - 1.1 mg/dL [facility] CALCIUM 9.7 8.6 - 10.6 [facility] mg/dL [facility] T PROTEIN 8.1 6.3 - 8.2 g/dL [facility] ALBUMIN 4.8 3.5 - 5.0 g/dL [facility] ALK PHOS 176 (H) 34 - 122 U/L [facility] ALTv 43 5 - 50 U/L [facility] AST(SGOT) 27 13 - 40 U/L [facility] eGFR Calculation 41.4 mL/min/1.73m2 [facility] ([facility] [place]) eGFR Calculation 50.1 mL/min/1.73m2 [facility] () [facility] Specimen Blood - VENOUS Narrative Performed At Association of Glomerular Filtration Rate (GFR) [facility] and Staging of Kidney Disease* + + +- + | GFR (mL/min/1.73 m2) | With Kidney Damage | Without Kidney Damage + + +- + | >90 | Stage one | Normal + + +- + | 60-89 | Stage two | Decreased GFR + + +- + | 30-59 | Stage three | Stage three + + +- + | 15-29 | Stage four | Stage four + + +- + | <15 (or dialysis) | Stage five | Stage five + + +- + *Each stage assumes the associated GFR level has been in effect for at least three months. Stages 1 to 5, with or without kidney disease, indicate chronic kidney disease. Notes: Determination of stages one and two (with eGFR >59mL/min/1.73 m2) requires estimation of kidney damage for at least three months as defined by structural or functional abnormalities of the kidney, manifested by either: Pathological abnormalities or Markers of kidney damage (including abnormalities in the composition of the blood or urine or abnormalities in imaging tests). Performing Organization Address City/State/Zipcode Phone Number [facility] CLIA: [id number], [address] [place] [address] POCT GLUCOSE (AUTOMATED) (07/01/2019 2:22 PM CDT) POCT GLU 294 (H) 70 - 110 mg/dL [facility] Specimen Blood Performing Organization Address City/State/Zipcode Phone Number [facility] CLIA: [id number], [address] [place] [address] documented in this encounter Visit Diagnoses Diagnosis Fever in adult - Primary Chronic left hip pain Pain in joint, pelvic region and thigh Chronic kidney disease, unspecified CKD stage Uncontrolled type 2 diabetes mellitus with hyperglycemia documented in this encounter Administered Medications Medication Order MAR Action Action Date Dose Rate Site NaCl 0.9% (NS) IV infusion New Bag 07/01/2019 3:34 PM CDT 1,000 mL 999 mL/ hr 1,000 mL at 999 mL/hr, Intravenous, CONTINUOUS, Starting Thu07/01/19 at 1500, Until Discontinued, Routine NaCl 0.9% (NS) IV infusion 1,000 New Bag 07/01/2019 5:49 PM CDT 1,000 mL 999 mL/hr mL at 999 mL/hr, Intravenous, CONTINUOUS, Starting Thu07/01/19 at 1715, Until Discontinued, Routine Medication Order MAR Action Action Date Dose Rate Site acetaminophen (TYLENOL) tablet Given 07/01/2019 3:00 PM CDT 1,000 mg 1,000 mg 1,000 mg, Oral, ONCE, 1 dose, Thu07/01/19 at 1500, Routine documented in this encounter Insurance Payer Benefit Plan / Subscriber ID Effective Dates Phone Address Type Group [facility] xxxxxxxxx 2018-Present Medicaid COMM PLAN - PLUS MANAGED MEDICAID [facility] [address], (Work) [place] [address] documented as of this encounter"
--- OUTSIDE RECORDS SUMMARY | 2019-07-02 10:40 | XMS REPORT | Summary of Care ---
:1965 Author Organization [facility] - Health Address [address] [place] [address] Care Team Providers Name Role Phone Pcp, Patient Does Not Have A Primary Care Provider Reason for Visit Reason Comments Other Encounter Details Date Type Department Care Team Description 07/01/2019 Emergency ADC-Emergency Hector Albrecht DO Homeless (Primary Dx) Department [address] [place] [address]. [address] [place] [address] [address] [place] [address] [place] [address] [phone] Allergies No Known Allergiesdocumented as of this [...] Sign Reading Time Taken Comments Blood Pressure 132/87 07/01/2019 11:23 PM CDT Pulse 107 07/01/2019 11:23 PM CDT Temperature 37.1 C (98.7 F) 07/01/2019 11:23 PM CDT Respiratory Rate 20 07/01/2019 11:23 PM CDT Oxygen Saturation 93% 07/01/2019 11:23 PM CDT Inhaled Oxygen Concentration - - Weight 77.1 kg (170 lb) 07/01/2019 10:58 PM CDT Height 177.8 cm (5' 10") 07/01/2019 10:58 PM CDT Body Mass Index 24.39 07/01/2019 10:58 PM CDT documented in this encounter Plan of Treatment Health Maintenance Due Date Last Done Comments DTaP,Tdap,and Td Vaccines (1 - 1984 Tdap) COLONOSCOPY 2015 Zoster Recombinant Vaccine 2015 (SHINGRIX) (1 of 2) INFLUENZA VACCINE (#1) 2018 PNEUMOCOCCAL 0-64 YEARS COMBINED Aged Out No longer eligible based on SERIES patient's age to complete this topic documented as of this encounter Results Not on filedocumented in this encounter Visit Diagnoses Diagnosis Homeless - Primary Lack of housing documented in this encounter Insurance Payer Benefit Plan / Subscriber ID Effective Dates Phone Address Type Group [facility] xxxxxxxxx 2018-Present Medicaid COMM PLAN - PLUS MANAGED MEDICAID (Home) [address] (Work) [place] [address] documented as of this encounter
[2019-07-02] MEDS ORDERED: MAGNE/ALUM HYDROXD 30 ML UCUP ONE (11:01)
[2019-07-02] MEDS ORDERED: NA CHLORIDE 0.9% 1,000 ML ONE ×2 (11:01→12:43)
[2019-07-02] MEDS ORDERED: LIDOCAINE VISCOUS 2% SOLN 15 ML UDC ONE (11:01)
[2019-07-02 11:15] LABS: Absolute Lymphocytes (CBC) 0.6 K/uL (0.7-4.9); Basophils % 0.5 % (0-1.3); Hematocrit 24.3 % (39.6-49.0); Lymphocytes % 3.8 % (15.3-44.8); MPV 8.5 fL (7.6-11.3); RBC Red Blood Cell Count 2.74 M/uL (4.33-5.43)
[2019-07-02 11:16] LABS: Potassium 4.2 mmol/L (3.5-5.1)
[2019-07-02 11:42] LABS: Blood Morphology Comment NOT SEEN (NOT SEEN); Platelet Estimate ADEQ; Urine White Blood Cell Casts OK
--- NOTE | 2019-07-02 12:39 | RAD REPORT ---
EXAM DESCRIPTION: Disha Single View07/02/2019 12:28 pm CLINICAL HISTORY: cough COMPARISON: 05/2019 FINDINGS: The lungs appear clear of acute infiltrate. The heart is normal size IMPRESSION: No acute abnormalities displayed
[2019-07-02] MEDS ORDERED: INSULIN -REGULAR HUMAN 50 UNIT/0.5 ML ML ONE ×3 (12:40→14:46)
[2019-07-02 12:44] LABS: Urine Blood 3+ (NEG); Urine Glucose 1+ (NEG); Urine Protein 1+ (NEG); Urine pH 6.5 (5.0-7.0)
[2019-07-02 12:55] LABS: Barbiturates NEGATIVE (NEGATIVE); Benzodiazepines NEGATIVE (NEGATIVE); Cocaine NEGATIVE (NEGATIVE); METHAMPHETAM POSITIVE (NEGATIVE); Methadone NEGATIVE (NEGATIVE); Opiates NEGATIVE (NEGATIVE); Phencyclidine NEGATIVE (NEGATIVE); THC Cannibis NEGATIVE (NEGATIVE)
[2019-07-02 12:58] LABS: Urine Bacteria LOADED /HPF (NONE SEEN); Urine Culture Reflex Order NOT NEEDED; Urine RBC 20-50 /HPF (NONE SEEN)
--- NOTE | 2019-07-02 13:06 | ER ---
Nurse's Notes [facility] Name: Frandy Gomes Age: 54 yrs Sex: Male : 1965 Arrival Date: 07/02/2019 Time: 10:35 Bed 6 Private MD: Diagnosis: Dehydration;Diabetes mellitus due to underlying condition with ketoacidosis without coma;Urinary tract infection, site not specified Presentation: 07/01 10:36 Chief complaint: EMS states: HE REFUSED TO LEAVE HEB, SO THEY CALLED PD, PD DIDN'T WANT bp HIM SO THEY CALLED US TO TRANSPORT TO THE HOSPITAL. Coronavirus screen: Patient denies fever greater than 100.4F, cough, shortness of breath, or difficulty breathing. Ebola Screen: No symptoms or risks identified at this time. Initial Sepsis Screen: Does the patient meet any 2 criteria? HR > 90 bpm. No. Patient's initial sepsis screen is negative. Does the patient have a suspected source of infection? No. Patient's initial sepsis screen is negative. Risk Assessment: Do you want to hurt yourself or someone else? Patient reports no desire to harm self or others. 10:36 Acuity: VARINDER 5 bp 10:36 Method Of Arrival: EMS: [facility] bp 10:53 Acuity: VARINDER 3 iw Triage Assessment: 10:38 General: Appears in no apparent distress. distressed, unkempt, Behavior is anxious, bp uncooperative. Pain: Complains of pain in right hip. EENT: No deficits noted. Neuro: No deficits noted. Cardiovascular: No deficits noted. Respiratory: No deficits noted. GI: No signs and/or symptoms were reported involving the gastrointestinal system. : No signs and/or symptoms were reported regarding the genitourinary system. Derm: No deficits noted. Musculoskeletal: No deficits noted. Historical: - Allergies: 10:38 No Known Allergies; bp - Home Meds: 10:38 None [Active]; bp - PMHx: 10:38 COPD; Diabetes - NIDDM; GERD; Hyperlipidemia; Hypertension; Seizures; titanium marjorie in bp arm and hip; - Immunization history:: Adult Immunizations unknown. - Social history:: Smoking status: Patient reports the use of cigarette tobacco products, unknown amount Patient uses street drugs. - Family history:: not pertinent. - Hospitalizations: : No recent hospitalization is reported. Screenin:39 Abuse screen: Denies threats or abuse. Denies injuries from another. Nutritional bp screening: No deficits noted. Tuberculosis screening: No symptoms or risk factors identified. Fall Risk None identified. Assessment: 10:39 General: SEE TRIAGE NOTE. PT REFUSING VS MONITORING. bp 11:12 Reassessment: PT UNCOOPERATIVE WITH FURTHER HEALTH CARE OR ASSESSMENT, STATING "I JUST bp NEED TO GET SOME SLEEP.". 11:55 Reassessment: PT REFUSING CXR AND TO PROVIDE URINE SPECIMEN, YELLING AT STAFF TO LEAVE bp HIM ALONE, HE'S TRYING TO SLEEP. 12:15 General: Smells of URINE. Neuro: Level of Consciousness is PATIENT FALLS ASLEEP WHILE vc BEING SPOKEN TO.. Oriented to person, place. Cardiovascular:. Respiratory: Respiratory effort is even, unlabored, Respiratory pattern is regular, symmetrical. : Urine is cloudy. :. Derm: Skin temperature is cool PATIENT HAS SORES ALL OVER ENTIRE BODY. 12:20 Reassessment: PT STATES THAT IT ALLEN WHEN HE URINATES, MD NOTIFIED. vc 14:35 Reassessment: Patient and/or family updated on plan of care and expected duration. Pain sv level reassessed. General: Behavior is uncooperative. Derm: Skin temperature is hot. Vital Signs: 10:36 BP 130 / 80; Pulse 118; Resp 18; Temp 98.3; Pulse Ox 98% ; bp 11:12 BP 121 / 81; Pulse 105; Resp 19; Pulse Ox 100% on R/A; bp 11:55 BP 138 / 86; Pulse 100; Resp 16; Pulse Ox 100% ; bp 12:40 BP 130 / 84; Pulse 109; Resp 20; Pulse Ox 100% ; sv 13:00 BP 128 / 68; Pulse 123; Resp 20; Temp 100.3(O); Pulse Ox 97% on R/A; vc 14:10 BP 145 / 88; Pulse 122; Resp 20; Pulse Ox 97% ; sv 14:47 Temp 102.9(A); sv ED Course: 10:35 Patient arrived in ED. bp 10:36 Dany Churchill MD is Attending Physician. rn 10:37 Triage completed. bp 10:38 Arm band placed on. bp 10:39 Navdeep Crowley, RN is Primary Nurse. bp 10:39 Patient has correct armband on for positive identification. Bed in low position. Call bp light in reach. Side rails up X2. 10:50 Inserted saline lock: 20 gauge in right forearm, using aseptic technique. Blood bp collected. 10:56 EKG done, by ED staff, reviewed by Dany Churchill MD. jb1 12:24 XRAY Chest (1 view) Sent. sv 12:24 Urine collected: clean catch specimen, clear. sv 12:28 XRAY Chest (1 view) In Process Unspecified. EDMS 12:56 Primary Nurse role handed off by Navdeep Crowley, GERA vc 12:56 Yi Nagel, GERA is Primary Nurse. vc 13:06 Zulema Hamilton MD is Hospitalizing Provider. rn 14:28 No provider procedures requiring assistance completed. Patient admitted, IV remains in sv place. intact. 14:51 Basic Metabolic Panel Sent. sv Administered Medications: 10:50 Drug: NS 0.9% 1000 ml Route: IV; Rate: 1000 ml; Site: right forearm; bp 12:24 Follow up: Response: No adverse reaction; IV Status: Completed infusion; IV Intake: sv 1000ml 10:50 Drug: GI Cocktail without - (Maalox Suspension 30 ml, Lidocaine Liquid 2 % 15 bp ml) Route: PO; 12:06 Follow up: Response: No adverse reaction vc 12:36 Drug: Insulin Regular Human 5 units {Co-Signature: sv (Radha Henson RN).} Route: iw Sub-Q; Site: left upper abdomen; 13:36 Follow up: Response: No adverse reaction vc 12:40 Drug: NS 0.9% 1000 ml Route: IV; Rate: 1000 ml; Site: right forearm; sv 14:00 Follow up: Response: No adverse reaction; IV Status: Completed infusion; IV Intake: sv 1000ml 13:20 Drug: Zofran (Ondansetron) 4 mg Route: IVP; Site: right hand; vc 14:00 Follow up: Response: No adverse reaction sv 13:40 Drug: Rocephin 1 grams Route: IV; Rate: calculated rate; Site: right hand; vc 13:42 Follow up: Response: No adverse reaction; IV Status: Completed infusion; IV Intake: 10mlsv 13:50 Drug: Insulin Regular Human 5 units {Co-Signature: vc (Yi Nagel RN).} Route: sv IVP; Site: right forearm; 14:30 Follow up: Response: No adverse reaction sv 14:38 CANCELLED (Duplicate Order): Tylenol 15 mg/kg PO once; not to exceed 1,000 milligrams rn 14:46 Drug: Tylenol 1000 mg Route: PO; sv 14:51 Follow up: Response: No adverse reaction sv 14:46 Drug: Insulin Regular Human 5 units {Co-Signature: vc (Yi Nagel RN).} Route: sv Sub-Q; Site: right lower abdomen; 14:51 Follow up: Response: No adverse reaction sv Intake: 12:24 IV: 1000ml; Total: 1000ml. sv 13:42 IV: 10ml; Total: 1010ml. sv 14:00 IV: 1000ml; Total: 2010ml. sv Output: 12:24 Urine: 500ml (Voided); Total: 500ml. sv Outcome: 13:06 Decision to Hospitalize by Provider. rn 14:28 Admitted to Tele accompanied by tech, via stretcher, room 202, with chart, Report sv called to Marj BOSS 14:28 Condition: stable 14:28 Instructed on the need for admit. 14:50 Patient left the ED. sv Signatures: Dispatcher [employer] EDMS Brennan Galicia Stephanie, RN RN sv Williams, Irene, RN RN iw Nieto, Roman, MD MD rn Peltier, Brian, RN RN bp Yi Nagel RN RN vc Radha Nagel RN, vc Corrections: (The following items were deleted from the chart) 14:50 14:29 BP 145 / 88; Pulse 122bpm; Resp 20bpm; Pulse Ox 97%; sv sv
--- NOTE | 2019-07-02 13:07 | EDPHYS ---
Physician Documentation [facility] Name: Frandy Gomes Age: 54 yrs Sex: Male : 1965 Arrival Date: 07/02/2019 Time: 10:35 Bed 6 Private MD: ED Physician Dany Churchill HPI: 07/01 10:40 This 54 yrs old Male presents to ER via EMS with complaints of CHRONIC PAIN. rn 10:40 Per report, patient refused to leave HEB, patient reports chronic pain to both hips, no rn recent injury, seen here yesterday for urinary complaint. Today reports acid reflux, burning in his chest, pain in both hips. Denies suicidal/homicidal ideation. Denies hallucinations. . Onset: The symptoms/episode began/occurred at an unknown time. Severity of symptoms: At their worst the symptoms were mild in the emergency department the symptoms are unchanged. The patient has experienced similar episodes in the past. The patient has been recently seen by a physician: The patient has been recently seen at the [facility] Emergency Department, yesterday. Historical: - Allergies: 10:38 No Known Allergies; bp - Home Meds: 10:38 None [Active]; bp - PMHx: 10:38 COPD; Diabetes - NIDDM; GERD; Hyperlipidemia; Hypertension; Seizures; titanium marjorie in bp arm and hip; - Immunization history:: Adult Immunizations unknown. - Social history:: Smoking status: Patient reports the use of cigarette tobacco products, unknown amount Patient uses street drugs. - Family history:: not pertinent. - Hospitalizations: : No recent hospitalization is reported. ROS: 10:44 Constitutional: Negative for fever, chills, and weight loss, Eyes: Negative for injury, rn pain, redness, and discharge, Cardiovascular: Negative for chest pain, palpitations, and edema, Respiratory: Negative for shortness of breath, cough, wheezing, and pleuritic chest pain, Abdomen/GI: Negative for abdominal pain, vomiting, diarrhea, and constipation, Back: Negative for injury and pain, MS/Extremity: Negative for injury and deformity, Skin: Negative for injury, rash, and discoloration, Neuro: Negative for headache, numbness, tingling, and seizure. Exam: 10:44 Constitutional: Thin male, sitting on own power, seems agitated Head/Face: rn Normocephalic, atraumatic. ENT: dry MM Cardiovascular: Tachycardic, intact distal pulses Respiratory: Speaking full sentences Abdomen/GI: soft, non-tender MS/ Extremity: Pulses equal, no cyanosis. Neurovascular intact. Full, normal range of motion. Equal circumference. Neuro: Awake and alert, GCS 15, oriented to person, place, time, and situation. Cranial nerves II-XII grossly intact. Motor strength 4/5 in all extremities. Sensory grossly intact. 11:04 ECG was reviewed by the Attending Physician. rn Vital Signs: 10:36 BP 130 / 80; Pulse 118; Resp 18; Temp 98.3; Pulse Ox 98% ; bp 11:12 BP 121 / 81; Pulse 105; Resp 19; Pulse Ox 100% on R/A; bp 11:55 BP 138 / 86; Pulse 100; Resp 16; Pulse Ox 100% ; bp 12:40 BP 130 / 84; Pulse 109; Resp 20; Pulse Ox 100% ; sv 13:00 BP 128 / 68; Pulse 123; Resp 20; Temp 100.3(O); Pulse Ox 97% on R/A; vc 14:10 BP 145 / 88; Pulse 122; Resp 20; Pulse Ox 97% ; sv 14:47 Temp 102.9(A); sv MDM: 10:36 Patient medically screened. rn 11:48 ED course: Pt continues to refuse xray and urine sample, states hasn't slept in days rn and just needs to rest. Explained to him our concerns of abnormal blood tests and need to search for infection/triggers, patient is not cooperative at all. Is alert and oriented, does not seem encephalopathic, just very difficult to reason with. This is not much different from yesterday when he left AMA and chose to urinate all over the floor and bed prior to leaving. . 13:03 Differential Diagnosis UTI, dehydration, drug abuse, DKA, hyperglycemia. Data reviewed: rn vital signs, nurses notes, lab test result(s), EKG, radiologic studies, plain films, and as a result, I will admit patient. Counseling: I had a detailed discussion with the patient and/or guardian regarding: the historical points, exam findings, and any diagnostic results supporting the discharge/admit diagnosis, lab results, radiology results, the need for further work-up and treatment in the hospital. Response to treatment: the patient's symptoms have mildly improved after treatment, and as a result, I will admit patient. ED course: Pt with mild DKA, dehydration, UTI, admitted to Dr. Hamilton, glucose not very high, will try to close gap with fluids/subQ and IV insulin and reeval need for drip. . 07/01 10:38 Order name: CBC with Diff rn 07/01 10:38 Order name: Basic Metabolic Panel; Complete Time: 11:31 rn 07/01 10:38 Order name: Urine Microscopic Only; Complete Time: 13:06 rn 07/01 10:48 Order name: Urine Drug Screen; Complete Time: 13:06 rn 07/01 11:42 Order name: CBC Smear Scan; Complete Time: 12:21 EDKY 07/01 12:34 Order name: Urine Dipstick--Ancillary (enter results); Complete Time: 12:45 07/01 11:33 Order name: XRAY Chest (1 view); Complete Time: 12:40 rn 07/01 12:35 Order name: Urine Culture 07/01 13:01 Order name: Basic Metabolic Panel EDKY 07/01 10:38 Order name: IV Start; Complete Time: 10:56 rn 07/01 10:38 Order name: Glucose Level; Complete Time: 10:56 rn 07/01 10:38 Order name: EKG; Complete Time: 10:38 rn 07/01 10:38 Order name: EKG - Nurse/Tech; Complete Time: 10:56 rn 07/01 10:38 Order name: Urine Dipstick-Ancillary (obtain specimen); Complete Time: 12:24 rn EC:04 Rate is 114 beats/min. Rhythm is regular. QRS [place] is Normal. [place] interval is normal. rn QRS interval is normal. QT interval is normal. No Q waves. T waves are Normal. No ST changes noted. Clinical impression: Sinus tachycardia. Interpreted by me. Reviewed by me. Administered Medications: 10:50 Drug: NS 0.9% 1000 ml Route: IV; Rate: 1000 ml; Site: right forearm; bp 12:24 Follow up: Response: No adverse reaction; IV Status: Completed infusion; IV Intake: sv 1000ml 10:50 Drug: GI Cocktail without - (Maalox Suspension 30 ml, Lidocaine Liquid 2 % 15 bp ml) Route: PO; 12:06 Follow up: Response: No adverse reaction vc 12:36 Drug: Insulin Regular Human 5 units {Co-Signature: hannah (Radha Henson RN).} Route: iw Sub-Q; Site: left upper abdomen; 13:36 Follow up: Response: No adverse reaction vc 12:40 Drug: NS 0.9% 1000 ml Route: IV; Rate: 1000 ml; Site: right forearm; sv 14:00 Follow up: Response: No adverse reaction; IV Status: Completed infusion; IV Intake: sv 1000ml 13:20 Drug: Zofran (Ondansetron) 4 mg Route: IVP; Site: right hand; vc 14:00 Follow up: Response: No adverse reaction sv 13:40 Drug: Rocephin 1 grams Route: IV; Rate: calculated rate; Site: right hand; vc 13:42 Follow up: Response: No adverse reaction; IV Status: Completed infusion; IV Intake: 10mlsv 13:50 Drug: Insulin Regular Human 5 units {Co-Signature: (Yi Nagel RN).} Route: sv IVP; Site: right forearm; 14:30 Follow up: Response: No adverse reaction sv 14:38 CANCELLED (Duplicate Order): Tylenol 15 mg/kg PO once; not to exceed 1,000 milligrams rn 14:46 Drug: Tylenol 1000 mg Route: PO; sv 14:51 Follow up: Response: No adverse reaction sv 14:46 Drug: Insulin Regular Human 5 units {Co-Signature: (Yi Nagel RN).} Route: sv Sub-Q; Site: right lower abdomen; 14:51 Follow up: Response: No adverse reaction sv Disposition: 07/02/19 13:06 Hospitalization ordered by Zulema Hamilton for Inpatient Admission. Preliminary diagnosis are Dehydration, Diabetes mellitus due to underlying condition with ketoacidosis without coma, Urinary tract infection, site not specified. - Bed requested for Telemetry/MedSurg (Inpatient). - Status is Inpatient Admission. sv - Condition is Stable. - Problem is new. - Symptoms have improved. Signatures: Dispatcher [employer] Radha Menendez RN RN sv Williams, Irene, RN RN iw Nieto, Roman, MD MD rn Peltier, Brian, RN RN bp Botello, Elizabeth eb Calcote, Vanessa, RN RN vc Radha Henson RN sv Yi Nagel RN vc Corrections: (The following items were deleted from the chart) 13:32 13:06 Hospitalization Ordered by Zulema Hamilton MD for Inpatient Admission. Preliminary eb diagnosis is Dehydration; Diabetes mellitus due to underlying condition with ketoacidosis without coma; Urinary tract infection, site not specified. Bed requested for Telemetry/MedSurg (Inpatient). Status is Inpatient Admission. Condition is Stable. Problem is new. Symptoms have improved. rn 14:38 14:37 Tylenol 15 mg/kg PO once; not to exceed 1,000 milligrams ordered. rn rn 14:50 13:32 07/02/2019 13:06 Hospitalization Ordered by Zulema Hamilton MD for Inpatient sv Admission. Preliminary diagnosis is Dehydration; Diabetes mellitus due to underlying condition with ketoacidosis without coma; Urinary tract infection, site not specified. Bed requested for Telemetry/MedSurg (Inpatient). Status is Inpatient Admission. Condition is Stable. Problem is new. Symptoms have improved. eb
[2019-07-02] MEDS ORDERED: ONDANSETRON 4 MG/2 ML VIAL ONE (13:17)
[2019-07-02] MEDS ORDERED: CEFTRIAXONE/SWI 1gm 1 GM/10 ML SYR ONE (13:47)
[2019-07-02] MEDS ORDERED: ACETAMINOPHEN 500 MG TAB ONE (14:46)
[2019-07-02 14:54] LABS: Potassium 3.4 mmol/L (3.5-5.1)
[2019-07-02] MEDS ORDERED: ONDANSETRON 4 MG/2 ML VIAL IV PRN (15:00)
[2019-07-02] MEDS ORDERED: D50W 25 GM/50 ML SYRINGE/VIAL IV PRN (15:11)
[2019-07-02] MEDS ORDERED: GLUCAGON 1 MG/VIAL IM PRN (15:11)
--- NOTE | 2019-07-02 15:20 | P.HP ---
Certification for Inpatient Patient admitted to: Inpatient With expected LOS: >2 Midnights Practitioner: I am a practitioner with admitting privileges, knowledge of patient current condition, hospital course, and medical plan of care. Services: Services provided to patient in accordance with Admission requirements found in Title 42 Section 412.3 of the Code of Federal Regulations Patient History Date of Service: 07/02/19 Reason for admission: DKA History of Present Illness: Patient is a 54-year-old male with past medical history of diabetes obstructive uropathy probable COPD noncompliance. Was recently discharged from the hospital 5 days ago. Patient comes in with confusion was found at B causing disruption and police were involved and subsequently EMS brought into the hospital. Patient's workup [place] [address] creatinine of 1.96. Patient was recently discharged with an indwelling catheter however this time did not have a catheter. Patient is found to have UTI. Patient's somewhat confused difficult to obtain history from him. History is gathered from previous records ER staff and his brother. Patient's symptoms are constant moderate progressively worsening. patient was given 1 g of Rocephin. IV and subcutaneous insulin IV fluid bolus x2 Patient was referred for admission. when seen in the ER he was awake alert oriented x2 in some mild distress. Allergies metformin Allergy (Verified 06/20/19 07:12) Itching/Hives/Rash Home Medications: Atorvastatin Calcium [Lipitor*] 20 mg PO BEDTIME 06/12/19 Duloxetine HCl [Cymbalta] 60 mg PO BID 06/12/19 Fenofibrate [Tricor*] 160 mg PO DAILY 06/12/19 Folic Acid 1 mg PO DAILY 06/12/19 Levetiracetam [Keppra] 1,000 mg PO DAILY 06/12/19 Pantoprazole Sodium [Protonix] 40 mg PO DAILY 06/12/19 Codeine/APAP [Tylenol W/Codeine #3 tab] 1 tab PO TID PRN #15 tab 06/28/19 Gabapentin 600 mg PO TID #90 tablet 06/28/19 Insulin Glargine Human [Lantus*] 20 units SQ DAILY WITH BREAKFAST #1 bottle Magnesium Oxide [Mag 0X*] 400 mg PO BID #60 tab 06/28/19 Midodrine HCl [Proamatine*] 5 mg PO BID #60 tab 06/28/19 Sitagliptin Phosphate [Januvia] 25 mg PO DAILY #30 tablet 06/28/19 Tamsulosin [Flomax*] 0.4 mg PO BEDTIME #30 cap 06/28/19 Thiamine HCl 100 mg PO DAILY #90 tablet 06/28/19 - Past Medical/Surgical History Diabetic: Yes -: DM-IDDM -: Seizure -: HTN -: HLD -: COPD -: GERD -: L humerous sx with Titanium marjorie placement -: L hip and R hip sx - Family History Father -: Heart disease, Other (see notes) Notes: from ID Mother -: Heart disease Notes: dementia - Social History Smoking Status: Current some day smoker Alcohol use: No CD- Drugs: No Caffeine use: Yes Place of Residence: Home Review of Systems 10-point ROS is otherwise unremarkable Genitourinary: As per HPI Neurological: As per HPI Physical Examination - Vital Signs Temperature: 102.9 F Blood Pressure: 145/88 Pulse: 122 Respirations: 20 - Physical Exam General: Alert, Oriented x2, Mild distress, Other (Appears older than stated age ill-appearing male) HEENT: Atraumatic, PERRLA, Other (Dry mucous membranes), EOMI, Sclerae nonicteric Neck: Supple, JVD not distended Respiratory: Clear to auscultation bilaterally, Normal air movement Cardiovascular: No edema, Normal pulses, Regular rate/rhythm, Normal S1 S2 Gastrointestinal: Normal bowel sounds, Soft and benign, Non-distended, No tenderness Musculoskeletal: No clubbing, No tenderness Integumentary: No rashes Neurological: Normal speech, Normal strength at 5/5 x4 extr, Normal tone, Cranial nerves 3-12 intact, Normal affect - Studies Laboratory Data (last 24 hrs) 07/02/19 10:50: Sodium 132 L, Potassium 4.2, BUN 44 H, Creatinine 1.96 H, Glucose 295 H 07/02/19 10:50: WBC 17.0 H D, Hgb 8.0 L, Hct 24.3 L, Plt Count 220 Imagings Data: chest x-ray No acute abnormalities Assessment and Plan - Plan #Mild DKA. Patient has gap 17 glucose of 300 will check ketones. If start on IV fluids. Patient was given insulin subcutaneous 5 units and an additional 5 units IV. Repeat BMP shows gap down to 14. Will give 10 units tonight subcu. Will continue with IV fluids. Repeat BMP in 8 hr # acute metabolic encephalopathy likely due to UTI and DKA. Improving with fluid resuscitation #Acute cystitis with hematuria patient was recently discharged with indwelling [place] catheter for obstructive uropathy unclear why he does not have a catheter at this time all. will continue with IV antibiotics. Follow up on urine cultures. # acute kidney injury. Likely due to dehydration and DKA. Continue to monitor kidney function and consult nephrology #COPD chronic bronchitis. stable continued a monitor O2 levels not O2 dependent # History of obstructive uropathy continue Flomax # drug abuse with amphetamine. [facility] Specialist when more awake and alert # noncompliance DVT prophylaxis with Lovenox renally dosed - Advance Directives Does patient have a Living Will: No Does patient have a Durable POA for Healthcare: No
[2019-07-02 15:48] VITALS: BMI 22.8
[2019-07-02] MEDS ORDERED: INSULIN -REGULAR HUMAN 50 UNIT/0.5 ML ML SQ SCH (16:30)
[2019-07-02] MEDS: NA CHLORIDE 0.9% 1,000 ML IV SCH ×2 (16:54→23:57)
[2019-07-02] MEDS: INSULIN -REGULAR HUMAN 50 UNIT/0.5 ML ML SQ SCH ×2 (18:00→21:52)
[2019-07-02 19:40] LABS: Potassium 3.2 mmol/L (3.5-5.1)
[2019-07-02] MEDS ORDERED: HOME MED 1 EA UNK (Duloxetine Hcl [Cymbalta] 60 MG) PO SCH (21:00)
[2019-07-02] MEDS ORDERED: HOME MED 1 EA UNK (Gabapentin [Gabapentin] 600 MG) PO SCH (21:00)
[2019-07-02] MEDS: DULOXETINE 30 MG CAP PO SCH (21:50)
[2019-07-02] MEDS: TAMSULOSIN 0.4 MG SR CAP PO SCH (21:50)
[2019-07-02] MEDS: MIDODRINE HCL 5 MG TABLET PO SCH (21:50)
[2019-07-02] MEDS: GABAPENTIN 300 MG CAP PO SCH (21:50)
[2019-07-02] MEDS: ACETAMINOPHEN 500 MG TAB PO PRN (21:51)
[2019-07-02] MEDS: ATORVASTATIN 20 MG TAB PO SCH (21:51)
[2019-07-02] MEDS: INSULIN GLARGINE 100 UNITS/ML SQ SCH (21:52)
[2019-07-02] MEDS: CEFEPIME/SWI 2gm 2 GM/20 ML SYR IVP SCH (21:53)
[2019-07-02] MEDS ORDERED: ACETAMINOPHEN 650MG/RECT SUPP PR PRN (23:40)
--- NOTE | 2019-07-02 23:45 | P.PN ---
Date of Service: 07/02/19 pt having persistent tachycardia and recurrent fever despite po tylenol doses . noted by staff to having emesis today and drooping from the mouth - will obtain a KUB to r/o obstruction , will switch tylenol to MS since absence IV acetaminophen -c/w IVF -c/w abx - expected HR to improved with control of Temp
[2019-07-03] MEDS: INSULIN -REGULAR HUMAN 50 UNIT/0.5 ML ML SQ SCH ×6 (00:19→21:03)
[2019-07-03] MEDS: NA CHLORIDE 0.9% 1,000 ML IV SCH ×3 (04:20→19:53)
[2019-07-03 06:35] LABS: Albumin 2.6 g/dL (3.4-5.0); Bilirubin Total 0.3 mg/dL (0.2-1.0); Phosphorus 3.3 mg/dL (2.5-4.9); Potassium 3.4 mmol/L (3.5-5.1); Protein, Total 6.3 g/dL (6.4-8.2)
[2019-07-03 06:37] LABS: Magnesium 1.3 mg/dL (1.8-2.4)
--- NOTE | 2019-07-03 07:25 | P.PN ---
Subjective Date of Service: 07/03/19 Chief Complaint: DKA Subjective: Improving Patient seen and examined chart reviewed and case discussed with RN. Updated brother regarding patient's condition. Patient much more awake and alert this morning. Asking for something to eat. Patient had multiple high spiking fevers last night. Review of Systems 10-point ROS is otherwise unremarkable General: As per HPI Physical Examination - Vital Signs Temperature: 99.3 F Blood Pressure: 101/69 Pulse: 107 Respirations: 18 Pulse Ox (%): 100 - Physical Exam General: Alert, Oriented x3, Mild distress, Other (Appears older than stated age ill-appearing) HEENT: Atraumatic, PERRLA, EOMI Neck: Supple, JVD not distended Respiratory: Clear to auscultation bilaterally, Normal air movement Cardiovascular: No edema, Normal S1 S2, Irregular heart rate/rhythm (Sinus tachycardia) Gastrointestinal: Normal bowel sounds, Soft and benign, Non-distended, No tenderness Musculoskeletal: No tenderness Integumentary: No rashes Neurological: Normal speech, Normal strength at 5/5 x4 extr, Normal tone, Normal affect - Studies Laboratory Data (last 24 hrs) 07/02/19 10:50: Sodium 132 L, Potassium 4.2, BUN 44 H, Creatinine 1.96 H, Glucose 295 H 07/02/19 10:50: WBC 17.0 H D, Hgb 8.0 L, Hct 24.3 L, Plt Count 220 Imagings Data: KUB pending Medications List Reviewed: Yes Assessment And Plan - Plan #Fever unclear etiology. May be secondary to UTI And/or possible alcohol withdrawal. Patient has history of alcohol abuse. Patient also tachycardic. Continue with IV fluids. Blood cultures are pending follow up on urine cultures. #Mild DKA. Improving gap is closing. Will continue on IV fluids will adjust rate to 100 mL. start on long-acting insulin and continue sliding scale insulin. # acute metabolic encephalopathy likely due to UTI and DKA. resolved. #Acute cystitis with hematuria will continue with IV antibiotics. Follow up on urine cultures. # acute kidney injury. Likely due to dehydration and DKA. Continue to monitor kidney function and follow up with nephrology recommendations. creatinine slightly worse today. #COPD chronic bronchitis. stable continued a monitor O2 levels not O2 dependent # History of obstructive uropathy continue Flomax # drug abuse with amphetamine. Counseled # noncompliance DVT prophylaxis with Lovenox renally dosed. placement will be an issue for this patient. His insurance does not have any stiff benefit this patient states that he does not have a home to go back to. Spoke at length with his brother who is a physician and had come down from [place] however states that he is unable to take care of the patient.
--- NOTE | 2019-07-03 07:43 | EKG ---
Test Date: 2019-07-02 Test Time: 10:50:16 Events And Promotions Assistant: CARL MEASUREMENT RESULTS: Intervals: Rate: 114 OR: 128 QRSD: 82 QT: 328 QTc: 452 [place]: P: 49 OR: 128 QRS: 55 T: 45 INTERPRETIVE STATEMENTS: Sinus tachycardia Otherwise normal ECG Compared to ECG 06/20/2019 01:43:04 Sinus rhythm no longer present Electronically Signed On 07-03-19 07:43:28 CDT by Dar Nolasco
[2019-07-03] MEDS: INSULIN GLARGINE 100 UNITS/ML SQ SCH ×2 (07:59→21:03)
[2019-07-03] MEDS: FOLIC ACID 1 MG TABLET PO SCH (08:00)
[2019-07-03] MEDS: GABAPENTIN 300 MG CAP PO SCH ×3 (08:00→19:52)
[2019-07-03] MEDS: DULOXETINE 30 MG CAP PO SCH ×2 (08:01→19:52)
[2019-07-03] MEDS: levETIRAcetam 500 MG TAB PO SCH (08:01)
[2019-07-03] MEDS: FENOFIBRATE 160 MG TAB PO SCH (08:01)
[2019-07-03] MEDS: THIAMINE HCL 100 MG TABLET PO SCH (08:01)
[2019-07-03] MEDS: SITAGLIPTIN PHOSPHATE 25 MG PO SCH (08:01)
[2019-07-03] MEDS: MIDODRINE HCL 5 MG TABLET PO SCH ×2 (08:01→19:52)
[2019-07-03 08:37] LABS: Absolute Lymphocytes (CBC) 0.5 K/uL (0.7-4.9); Basophils % 0.1 % (0-1.3); Hematocrit 21.6 % (39.6-49.0); Lymphocytes % 7.2 % (15.3-44.8); MPV 8.9 fL (7.6-11.3); RBC Red Blood Cell Count 2.41 M/uL (4.33-5.43)
[2019-07-03] MEDS ORDERED: PANTOPRAZOLE 40MG TABLET PO SCH (09:00)
[2019-07-03] MEDS ORDERED: Magnesium Sulfate 2gm IVPB 2 G/50 ML BAG IV ONE (09:00)
[2019-07-03] MEDS ORDERED: HOME MED 1 EA UNK (Levetiracetam [Keppra] 1,000 MG) PO SCH (09:00)
[2019-07-03] MEDS ORDERED: POTASSIUM 25 MEQ EFFERV TAB PO ONE (09:00)
[2019-07-03] MEDS: CEFEPIME/SWI 2gm 2 GM/20 ML SYR IVP SCH ×2 (09:22→19:54)
--- NOTE | 2019-07-03 10:55 | P.CNS ---
Date of Consult: 07/03/19 Reason for Consult: NELSON Chief Complaint: DKA History of Present Illness: pt is a poor historian , HX obtained from chart a 54 Y/o man with PMhx of DM, HTN, seizure disorder [facility] by [facility] for distributive behavior , and AMS pt with frequent admission , non com,pliant with treatment , was discharged 5 days ago, he was refsuing graham placement in ER Cr 1.9, spikes fever of 104 with hyperglycemia ROS denied chest pain, palpitation, nausea , vomiting or diarrhea general: lethargic, cahcexi Neck; Supple, No elevated JVD hear: RRR, normal S1,2 no murmur or rub Chest: CTAB, no rlaes or wheezes Abdomen: Sscaphoid, soft, NT Extremities No edema skin: multiple lesion all over the body A/P NELSON due to dehydration and obstructive uropathy Cont IVF renal dose meds refsing graham catheter metabolic encepahlopathy improving Hx of seizure disorder on Keppra hypokalmeia and hypomagnesemia replace prn mild DKA resolved fever UTI cont Abx f/u cultures time spent 45 minutes Allergies metformin Allergy (Verified 06/20/19 07:12) Itching/Hives/Rash Home Medications: Atorvastatin Calcium [Lipitor*] 20 mg PO BEDTIME 06/12/19 Duloxetine HCl [Cymbalta] 60 mg PO BID 06/12/19 Fenofibrate [Tricor*] 160 mg PO DAILY 06/12/19 Folic Acid 1 mg PO DAILY 06/12/19 Levetiracetam [Keppra] 1,000 mg PO DAILY 06/12/19 Pantoprazole Sodium [Protonix] 40 mg PO DAILY 06/12/19 Codeine/APAP [Tylenol W/Codeine #3 tab] 1 tab PO TID PRN #15 tab 06/28/19 Gabapentin 600 mg PO TID #90 tablet 06/28/19 Insulin Glargine Human [Lantus*] 20 units SQ DAILY WITH BREAKFAST #1 bottle Magnesium Oxide [Mag 0X*] 400 mg PO BID #60 tab 06/28/19 Midodrine HCl [Proamatine*] 5 mg PO BID #60 tab 06/28/19 Sitagliptin Phosphate [Januvia] 25 mg PO DAILY #30 tablet 06/28/19 Tamsulosin [Flomax*] 0.4 mg PO BEDTIME #30 cap 06/28/19 Thiamine HCl 100 mg PO DAILY #90 tablet 06/28/19 - Past Medical/Surgical History Diabetic: Yes -: DM-IDDM -: Seizure -: HTN -: HLD -: COPD -: GERD -: L humerous sx with Titanium marjorie placement -: L hip and R hip sx - Family History Father Medical History: Heart disease, Other (see notes) Notes: from [place] Mother Medical History: Heart disease Notes: dementia - Social History Smoking Status: Current every day smoker Alcohol use: No CD- Drugs: No Caffeine use: Yes Place of Residence: Home Physical Examination Temp Pulse Resp BP Pulse Ox 97.2 F 101 H 20 128/83 96 07/03/19 08:00 07/03/19 08:00 07/03/19 08:00 07/03/19 08:00 07/03/19 08:00 Laboratory Data (last 24 hrs) 07/02/19 10:50: Sodium 132 L, Potassium 4.2, BUN 44 H, Creatinine 1.96 H, Glucose 295 H 07/02/19 10:50: WBC 17.0 H D, Hgb 8.0 L, Hct 24.3 L, Plt Count 220
--- NOTE | 2019-07-03 11:38 | RAD REPORT ---
EXAM DESCRIPTION: RAD - Abdomen 1 View (KUB) - 07/03/2019 12:51 am CLINICAL HISTORY: r/o GI obstruction Pain COMPARISON: Chest Single View dated 07/02/2019 FINDINGS: Examination was limited by patient cooperation issues. A few mildly prominent bowel loops in the upper abdomen are seen, no bowel obstruction evident. No suspicious calcifications. No significant bony findings. Serpiginous air density is seen projecting over the pelvis may represent sequela of emphysematous cys titis. IMPRESSION: No definitive finding to indicate bowel obstruction. Serpiginous air density seen projecting over the pelvis centrally, may indicate emphysematous cystiti s. Advise clinical correlation.
[2019-07-03] MEDS: SUCRALFATE 1 GM TABLET PO SCH ×3 (13:00→19:52)
[2019-07-03 14:39] LABS: Hematocrit 18.6 % (39.6-49.0)
[2019-07-03] MEDS ORDERED: NA CHLORIDE 0.9% 250 ML IV SCH (16:00)
[2019-07-03] MEDS: CODEINE 30MG/APAP 300MG TAB PO PRN ×2 (16:55→23:03)
[2019-07-03] MEDS ORDERED: MAGNESIUM SULFATE 1 gm IVPB 1 GM/100 ML BAG IV ONE (17:02)
[2019-07-03] MEDS: PANTOPRAZOLE 40MG TABLET PO SCH (19:52)
[2019-07-03] MEDS: ATORVASTATIN 20 MG TAB PO SCH (19:52)
[2019-07-03] MEDS: TAMSULOSIN 0.4 MG SR CAP PO SCH (19:52)
[2019-07-03] MEDS: ACETAMINOPHEN 500 MG TAB PO PRN (19:53)
[2019-07-04 03:19] LABS: Hematocrit 19.1 % (39.6-49.0)
[2019-07-04 03:31] LABS: Magnesium 1.8 mg/dL (1.8-2.4); Potassium 3.6 mmol/L (3.5-5.1)
[2019-07-04] MEDS ORDERED: FUROSEMIDE 20 MG/ 2ML VIAL IV ONE (03:39)
[2019-07-04] MEDS ORDERED: MAGNESIUM SULFATE 1 gm IVPB 1 GM/100 ML BAG IV ONE (03:41)
[2019-07-04] MEDS ORDERED: POTASSIUM CL SA 10 MEQ TAB PO ONE (03:42)
[2019-07-04] MEDS ORDERED: NA CHLORIDE 0.9% 250 ML ONE (03:51)
[2019-07-04] MEDS: NA CHLORIDE 0.9% 1,000 ML IV SCH (03:52)
[2019-07-04] MEDS: ACETAMINOPHEN 500 MG TAB PO PRN (04:44)
[2019-07-04] MEDS: levETIRAcetam 500 MG TAB PO SCH (07:28)
[2019-07-04] MEDS: GABAPENTIN 300 MG CAP PO SCH ×2 (07:28→12:52)
[2019-07-04] MEDS: DULOXETINE 30 MG CAP PO SCH (07:28)
[2019-07-04] MEDS: FENOFIBRATE 160 MG TAB PO SCH (07:28)
[2019-07-04] MEDS: THIAMINE HCL 100 MG TABLET PO SCH (07:29)
[2019-07-04] MEDS: FOLIC ACID 1 MG TABLET PO SCH (07:29)
[2019-07-04] MEDS: SUCRALFATE 1 GM TABLET PO SCH ×2 (07:29→12:52)
[2019-07-04] MEDS: MIDODRINE HCL 5 MG TABLET PO SCH (07:29)
[2019-07-04] MEDS: PANTOPRAZOLE 40MG TABLET PO SCH (07:29)
[2019-07-04] MEDS: SITAGLIPTIN PHOSPHATE 25 MG PO SCH (07:30)
[2019-07-04] MEDS: INSULIN GLARGINE 100 UNITS/ML SQ SCH (07:50)
[2019-07-04] MEDS: INSULIN -REGULAR HUMAN 50 UNIT/0.5 ML ML SQ SCH ×2 (07:51→11:30)
[2019-07-04 08:07] VITALS: O2SAT 97
[2019-07-04] MEDS: CEFEPIME/SWI 2gm 2 GM/20 ML SYR IVP SCH (09:00)
--- NOTE | 2019-07-04 09:54 | P.PN ---
Subjective Date of Service: 07/04/19 Chief Complaint: DKA Patient seen and examined chart reviewed and case discussed with RN. Updated brother regarding patient's condition. Currently on 4th floor to r out COVID. No further hematemesis. Requiring multiple PRBCs Review of Systems 10-point ROS is otherwise unremarkable Gastrointestinal: As per HPI Physical Examination - Vital Signs Temperature: 99.5 F Blood Pressure: 102/66 Pulse: 102 Respirations: 18 Pulse Ox (%): 97 - Physical Exam General: Alert, In no apparent distress, Oriented x3 HEENT: Atraumatic, PERRLA, EOMI Neck: Supple, JVD not distended Respiratory: Clear to auscultation bilaterally, Normal air movement Cardiovascular: No edema, Normal pulses, Regular rate/rhythm, Normal S1 S2 Gastrointestinal: Normal bowel sounds, Soft and benign, Non-distended, Tenderness Musculoskeletal: No tenderness Integumentary: No rashes Neurological: Normal speech, Normal tone, Normal affect - Studies Laboratory Last Values WBC 6.9 K/uL (4.3-10.9) D 07/03/19 05:46 RBC 2.41 M/uL (4.33-5.43) L 07/03/19 05:46 Hgb 6.3 g/dL (13.6-17.9) L* 07/04/19 02:55 Hct 19.1 % (39.6-49.0) L* 07/04/19 02:55 MCV 89.7 fL (80-100) 07/03/19 05:46 MCH 29.7 pg (27.0-35.0) 07/03/19 05:46 MCHC 33.2 g/dL (32.0-36.0) 07/03/19 05:46 RDW 15.4 % (12.1-15.2) H 07/03/19 05:46 Plt Count 119 K/uL (152-406) L D 07/03/19 05:46 MPV 8.9 fL (7.6-11.3) 07/03/19 05:46 Neutrophils % 82.0 % (41.7-73.7) H 07/03/19 05:46 Lymphocytes % 7.2 % (15.3-44.8) L 07/03/19 05:46 Monocytes % 10.7 % (3.3-12.3) 07/03/19 05:46 Eosinophils % 0.0 % (0-4.4) 07/03/19 05:46 Basophils % 0.1 % (0-1.3) 07/03/19 05:46 Absolute Neutrophils 5.6 K/uL (1.8-8.0) 07/03/19 05:46 Absolute Lymphocytes 0.5 K/uL (0.7-4.9) L 07/03/19 05:46 Absolute Monocytes 0.7 K/uL (0.1-1.3) 07/03/19 05:46 Absolute Eosinophils 0.0 K/uL (0-0.5) 07/03/19 05:46 Absolute Basophils 0.0 K/uL (0-0.5) 07/03/19 05:46 Morphology Comment Not seen (NOT SEEN) 07/02/19 10:50 Sodium 131 mmol/L (136-145) L 07/04/19 02:55 Potassium 3.6 mmol/L (3.5-5.1) 07/04/19 02:55 Chloride 102 mmol/L (98-107) 07/04/19 02:55 Carbon Dioxide 20 mmol/L (21-32) L 07/04/19 02:55 BUN 56 mg/dL (7-18) H 07/04/19 02:55 Creatinine 1.82 mg/dL (0.55-1.3) H 07/04/19 02:55 Estimated GFR 39 mL/min (=/>90) L 07/04/19 02:55 Glucose 327 mg/dL (74-106) H 07/04/19 02:55 POC Glucose 307 mg/dl (65-120) H 07/04/19 07:43 Serum Osmolality 299 mOsm/kg (275-300) 07/02/19 19:08 Lactic Acid 1.0 mmol/L (0.4-2.0) 07/03/19 17:26 Calcium 7.4 mg/dL (8.5-10.1) L 07/04/19 02:55 Phosphorus 3.3 mg/dL (2.5-4.9) 07/03/19 05:46 Magnesium 1.8 mg/dL (1.8-2.4) 07/04/19 02:55 Total Bilirubin 0.3 mg/dL (0.2-1.0) 07/03/19 05:46 AST 22 U/L (15-37) 07/03/19 05:46 ALT 28 U/L (12-78) 07/03/19 05:46 Alkaline Phosphatase 126 U/L (45-117) H 07/03/19 05:46 Serum Total Protein 6.3 g/dL (6.4-8.2) L D 07/03/19 05:46 Albumin 2.6 g/dL (3.4-5.0) L D 07/03/19 05:46 Globulin 3.7 g/dL (2.3-3.5) H 07/03/19 05:46 Albumin/Globulin Ratio 0.7 (1.1-1.8) L 07/03/19 05:46 Urine pH 6.5 (5.0-7.0) 07/02/19 12:34 Ur Specific Fieldon 1.020 (1.005-1.030) 07/02/19 12:34 Glucose (UA)(Auto) 1+ (NEG) 07/02/19 12:34 Urine Ketones Trace (NEG) 07/02/19 12:34 Urine Blood 3+ (NEG) H 07/02/19 12:34 Urine Nitrite Negative (NEG) 07/02/19 12:34 Ur Leukocyte Esterase 1+ (NEG) H 07/02/19 12:34 Urine RBC 20-50 /HPF (NONE SEEN) H 07/02/19 12:24 Urine WBC 20-50 /HPF (<5) H 07/02/19 12:24 Ur Squamous Epith Cells <5 /HPF (NONE SEEN) 07/02/19 12:24 Urine Bacteria Loaded /HPF (NONE SEEN) H 07/02/19 12:24 Urine Culture Reflexed Not needed 07/02/19 12:24 Urine Total Protein 1+ (NEG) H 07/02/19 12:34 Opiates Screen Negative (NEGATIVE) 07/02/19 12:24 Methadone Screen Negative (NEGATIVE) 07/02/19 12:24 Ur Barbiturates Screen Negative (NEGATIVE) 07/02/19 12:24 Ur Phencyclidine Scrn Negative (NEGATIVE) 07/02/19 12:24 Amphetamines Screen Positive (NEGATIVE) H 07/02/19 12:24 Benzodiazepines Screen Negative (NEGATIVE) 07/02/19 12:24 Cocaine Screen Negative (NEGATIVE) 07/02/19 12:24 Ur THC Screen Negative (NEGATIVE) 07/02/19 12:24 Acetone Level Large (NEG) H 07/02/19 19:08 ABO/Rh O POSITIVE 07/03/19 16:35 Solid Phase Ab Screen Negative 07/03/19 16:35 Crossmatch See Detail 07/03/19 16:35 Microbiology Data (last 24 hrs): 07/02/19 12:24 Clean Catch Urine [place] Count - Final >100,000 CFU/ML. 07/02/19 12:24 Clean Catch Urine - Final Escherichia Coli Esbl Medications List Reviewed: Yes Assessment And Plan - Plan #Upper GI Bleed patient had hematemesis. No further episodes since yesterday. Continue Protonix b.i.d.. Patient is on 2nd unit of PRBCs. The GI available will need to transfer for higher level of care #Acute anemia secondary to blood loss. Monitor H&H. Hemoglobin still around 6 after 1 unit of PRBC. Will transfuse 1 more unit. And recheck H&H 2 hr post. Lasix 20 mg IV after transfusion #Fever likely secondary to UTI temperature is better now. Continue with IV fluids. Blood cultures Gram negative rods and urine culture growing out ESBL ecoli. Adjust antibiotics to meropenem. #Mild DKA. Improving gap is closing. Will continue on IV fluids will adjust rate to 100 mL. start on long-acting insulin and continue sliding scale insulin. # acute metabolic encephalopathy likely due to UTI and DKA. resolved. #Acute cystitis with hematuria will continue with IV antibiotics. urine cultures growing E. S. B. L ecoli. Will likely need 2-4 weeks of IV antibiotics. # acute kidney injury. Likely due to dehydration and DKA. Continue to monitor kidney function and follow up with nephrology recommendations. creatinine slightly worse today. #COPD chronic bronchitis. stable continued a monitor O2 levels not O2 dependent # History of obstructive uropathy continue Flomax # drug abuse with amphetamine. Counseled # noncompliance DVT prophylaxis with Lovenox renally dosed. Will need to transfer patient for higher level of care due to GI bleed. No GI available.
[2019-07-04] MEDS ORDERED: Meropenem 1,000 MG in NA CHLORIDE 0.9% 100 ML IV SCH ×2 (10:00→21:00)
[2019-07-04 10:16] LABS: Hematocrit 24.2 % (39.6-49.0)
[2019-07-04] MEDS ORDERED: SODIUM CHLORIDE 0.9% 10ML INJ IV PRN (11:02)
[2019-07-04 11:53] VITALS: BP 102/63; TEMP 99.4
[2019-07-04] MEDS ORDERED: Meropenem 1000 MG/VIAL IV SCH (12:00)
[2019-07-04] MEDS ORDERED: PANTOPRAZOLE 40 MG INJ IVP SCH (21:00)
--- NOTE | 2019-07-04 22:26 | PN ---
Date of Progress Note: 07/04/2019 Chief Complaint: Diabetes mellitus, acute kidney injury on chronic kidney disease, hypertension, amriama betic kidney disease. History Of Present Illness: Patient is a 54-year-old man with history of diabetes mellitus, hyperten eran, seizure. He was brought to the hospital because of altered mental status. He was started on I V fluids for volume depletion and to alleviate acute kidney injury, prevent prerenal azotemia. Patie nt refused Keene catheter. He has a history of obstructive uropathy, bladder outlet obstruction, alt mukesh he refused to have a Keene catheter placed. Patient was found to have metabolic encephalopathy . Today, hemoglobin level dropped and patient is to be transferred to higher level of care with GI c onsult. The patient was found to have hypokalemia and hypomagnesemia and replacement was ordered. Review of Systems: Denies new complaints. Physical Examination: Lungs: Clear to auscultation bilaterally. HEART: S1, S2. Abdomen: Soft, benign. Extremities: Edema of mild degree. Laboratory Data: Hemoglobin 6.3. Patient received blood transfusion. Hemoglobin level improved to 8.1. Sodium 131, potassium 3.6, chloride 102, CO2 of 20, BUN 56, creatinine 1.82, glucose 327, calci um 7.4, magnesium 1.8. Impression: 1.Rpkfs-ex-ywheaqp kidney injury, prerenal azotemia secondary to volume depletion with element of ob structive uropathy. Patient refused Keene catheter. 2.Patient has uncontrolled diabetes, received insulin for control of diabetes. Monitor sodium level and sodium level is below normal ranges, although blood glucose is elevated over 300. The patient i s on insulin. 3.Anemia. Hemoglobin level drops. Patient is to have GI workup. 4.Hypertension. Monitor blood pressure closely. Adjust medication. EB/MODL Voice ID: [id number] Report ID: [id number]
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
== END 2019-07-04 13:15 | disposition short-term general hospital (02) | DRG 637 ==
LOC: ER 10:34 → 2ND 12:56 → 4TH 07-03 13:25
PROVIDERS: ADMIT Family Medicine; ATTEND Family Medicine
PROC: 30233N1 Transfusion of Nonautologous Red Blood Cells into Peripheral Vein, Percutaneous Approach (ICD-10-PCS; principal; 2019-07-03)
PROC: 30233N1 Transfusion of Nonautologous Red Blood Cells into Peripheral Vein, Percutaneous Approach (ICD-10-PCS; 2019-07-04)
DX: E11.10 Type 2 diabetes mellitus with ketoacidosis without coma (principal); G93.41 Metabolic encephalopathy; N30.01 Acute cystitis with hematuria; Z16.12 Extended spectrum beta lactamase (ESBL) resistance; R78.81 Bacteremia; N17.9 Acute kidney failure, unspecified; R64 Cachexia; K92.0 Hematemesis; D62 Acute posthemorrhagic anemia; B96.1 Klebsiella pneumoniae [K. pneumoniae] as the cause of diseases classified elsewhere; J42 Unspecified chronic bronchitis; R00.0 Tachycardia, unspecified; E11.65 Type 2 diabetes mellitus with hyperglycemia; E78.5 Hyperlipidemia, unspecified; K21.9 Gastro-esophageal reflux disease without esophagitis; G40.909 Epilepsy, unspecified, not intractable, without status epilepticus; E11.22 Type 2 diabetes mellitus with diabetic chronic kidney disease; N18.9 Chronic kidney disease, unspecified; I12.9 Hypertensive chronic kidney disease with stage 1 through stage 4 chronic kidney disease, or unspecified chronic kidney disease; E87.6 Hypokalemia; E83.42 Hypomagnesemia; F15.10 Other stimulant abuse, uncomplicated; Z68.22 Body mass index [BMI] 22.0-22.9, adult; Z79.4 Long term (current) use of insulin; Z03.818 Encounter for observation for suspected exposure to other biological agents ruled out
CPT/HCPCS: 36415; 71045; 72170; 74018; 80048; 80053; 80307; 81003; 81015; 82010; 82947; 83605; 83735; 83930; 84100; 85014; 85018; 85025; 86850; 86900; 86901; 87040; 87077; 87086; 87088; 87186; 87205; 93005; 94760; 96361; 96365; 96372; 96374; 96375; 99284; 99285; J0692; J0696; J1815; J1940; J2405; J3475; J7030; P9016; U0001

== ENCOUNTER 2019-07-07 01:35 | Inpatient (IN) | payer OTHER ==
[2019-07-07] MEDS ORDERED: MORPHINE 2 MG/ML SYR IV PRN (01:39)
[2019-07-07] MEDS ORDERED: ONDANSETRON 4 MG/2 ML VIAL IV PRN (01:39)
[2019-07-07] MEDS ORDERED: ACETAMINOPHEN 500 MG TAB PO PRN (01:39)
[2019-07-07] MEDS ORDERED: GLUCAGON 1 MG/VIAL IM PRN ×2 (01:43→11:57)
[2019-07-07] MEDS ORDERED: D50W 25 GM/50 ML SYRINGE/VIAL IV PRN ×2 (01:43→11:57)
--- OUTSIDE RECORDS SUMMARY | 2019-07-07 01:44 | XMS REPORT ---
:1965 Author Organization [facility] t Address [address] [place] [address] Care Team Providers Name Role Phone JENNIFER BANUELOS Unavailable Unavailable Payers Payer Name Policy Type Policy Number Effective Date Expiration D ate Problems This patient has no known problems. Allergies, Adverse Reactions, Alerts Allergy Allergy Status Severity Reaction(s) Onset Inactive Treating C omments Name Type Date Date Clinician No Known DA Active U 2016-04 Allergies -17 00:00:0 0 No Known DA Active U 2016-01 Allergies -03 00:00:0 0 Medications This patient has no known medications. Encounters Start End Encounter Admission Attending Care Care Encounter Date/Time Date/Time Type Type Clinicians Facility Department ID 2018-09-03 2018-09-03 Emergency E [facility] [id number] 00:28:00 00:28:00 2018-05-12 2018-05-12 Outpatient [facility] [id number] 00:00:00 00:00:00 2018-04-13 2018-04-13 Outpatient [facility] [id number] 00:00:00 00:00:00 2018-02-23 2018-02-23 Outpatient [facility] [id number] 00:00:00 00:00:00 2018-02-19 2018-02-19 Outpatient [facility] [id number] 00:00:00 00:00:00 2018-02-16 2018-02-16 Outpatient [facility] [id number] 00:00:00 00:00:00 2018-01-25 2018-01-25 Outpatient [facility] [id number] 00:00:00 00:00:00 2018-01-22 2018-01-22 Outpatient [facility] [id number] 15:47:04 15:47:04 2018-01-20 2018-01-20 Outpatient [facility] [id number] 00:00:00 00:00:00 2018-01-19 2018-01-19 Outpatient [facility] [id number] 15:13:11 15:13:11 2018-01-19 2018-01-19 Outpatient [facility] [id number] 00:00:00 00:00:00 2017-12-17 2017-12-17 Outpatient [facility] [id number] 00:00:00 00:00:00 2017-11-10 2017-11-10 Outpatient [facility] [id number] 00:00:00 00:00:00 2017-10-29 2017-10-29 Outpatient [facility] [id number] 00:00:00 00:00:00 2017-10-06 2017-10-06 Outpatient [facility] [id number] 00:00:00 00:00:00 2017-09-15 2017-09-15 Outpatient [facility] [id number] 09:41:29 09:41:29 2017-08-27 2017-08-27 Outpatient [facility] [id number] 08:29:31 08:29:31 2017-08-26 2017-08-26 Outpatient [facility] [id number] 00:00:00 00:00:00 2017-08-21 2017-08-21 Outpatient [facility] [id number] 13:11:02 13:11:02 2017-08-17 2017-08-17 Outpatient [facility] [id number] 00:00:00 00:00:00 2017-08-13 2017-08-13 Outpatient [facility] [id number] 00:00:00 00:00:00 2017-07-10 2017-07-10 Outpatient [facility] [id number] 11:10:51 11:10:51 2017-07-10 2017-07-10 Outpatient [facility] [id number] 10:58:18 10:58:18 2017-07-10 2017-07-10 Outpatient [facility] [id number] 10:27:13 10:27:13 2017-07-09 2017-07-09 Outpatient [facility] [id number] 00:00:00 00:00:00 2017-07-08 2017-07-08 Outpatient [facility] [id number] 09:18:37 09:18:37 2017-07-08 2017-07-08 Outpatient [facility] [id number] 00:00:00 00:00:00 2017-07-08 2017-07-08 Outpatient [facility] [id number] 00:00:00 00:00:00 2017-07-08 2017-07-08 Outpatient [facility] [id number] 00:00:00 00:00:00 2017-06-30 2017-06-30 Outpatient [facility] [id number] 00:00:00 00:00:00 2017-06-29 2017-06-29 Outpatient [facility] [id number] 00:00:00 00:00:00 2017-06-18 2017-06-18 Outpatient [facility] [id number] 00:00:00 00:00:00 2017-05-07 2017-05-07 Outpatient [facility] [id number] 00:00:00 00:00:00 2017-04-21 2017-04-21 Outpatient [facility] [id number] 10:37:11 10:37:11 2017-04-21 2017-04-21 Outpatient [facility] [id number] 10:22:34 10:22:34 2017-04-21 2017-04-21 Outpatient [facility] [id number] 00:00:00 00:00:00 2017-04-14 2017-04-14 Outpatient [facility] [id number] 00:00:00 00:00:00 2017-04-14 2017-04-14 Outpatient [facility] [id number] 00:00:00 00:00:00 2017-02-23 2017-02-23 Outpatient [facility] [id number] 00:00:00 00:00:00 2017-02-18 2017-02-18 Outpatient [facility] [id number] 00:00:00 00:00:00 2017-02-18 2017-02-18 Outpatient [facility] [id number] 00:00:00 00:00:00 2017-02-11 2017-02-11 Outpatient [facility] [id number] 10:36:34 10:36:34 2017-02-03 2017-02-03 Outpatient [facility] [id number] 00:00:00 00:00:00 2017-01-29 2017-01-29 Outpatient [facility] [id number] 00:00:00 00:00:00 2017-01-20 2017-01-20 Outpatient [facility] [id number] 00:00:00 00:00:00 2017-01-06 2017-01-06 Outpatient [facility] [id number] 00:00:00 00:00:00 2016-12-29 2016-12-29 Outpatient [facility] [id number] 00:00:00 00:00:00 2016-12-22 2016-12-22 Outpatient [facility] [id number] 00:00:00 00:00:00 2016-12-05 2016-12-05 Outpatient [facility] [id number] 00:00:00 00:00:00 2016-11-25 2016-11-25 Outpatient [facility] [id number] 00:00:00 00:00:00 2016-11-07 2016-11-07 Outpatient [facility] [id number] 00:00:00 00:00:00 2016-10-22 2016-10-22 Outpatient [facility]HS [facility] [id number] 00:00:00 00:00:00 2016-10-22 2016-10-22 Outpatient [facility] [id number] 00:00:00 00:00:00 2016-10-14 2016-10-14 Outpatient [facility] [id number] 00:00:00 00:00:00 2016-10-14 2016-10-14 Outpatient [facility] [id number] 00:00:00 00:00:00 2016-10-14 2016-10-14 Outpatient [facility] [id number] 00:00:00 00:00:00 2016-10-13 2016-10-13 Outpatient [facility] [id number] 00:00:00 00:00:00 2016-10-06 2016-10-06 Outpatient [facility] [id number] 00:00:00 00:00:00 2016-09-26 2016-09-26 Outpatient [facility] [id number] 13:05:03 13:05:03 2016-09-26 2016-09-26 Outpatient [facility] [id number] 11:08:45 11:08:45 2016-09-26 2016-09-26 Outpatient [facility] [id number] 00:00:00 00:00:00 2016-09-23 2016-09-23 Outpatient [facility]HS [facility] [id number] 08:22:53 08:22:53 2016-09-22 2016-09-22 Outpatient [facility] [id number] 00:00:00 00:00:00 2016-09-02 2016-09-02 Outpatient [facility]HS [facility] [id number] 10:13:54 10:13:54 2016-09-02 2016-09-02 Outpatient [facility] [id number] 09:14:14 09:14:14 2016-09-01 2016-09-01 Outpatient [facility] [id number] 00:00:00 00:00:00 2016-08-27 2016-08-27 Outpatient [facility] [id number] 12:05:53 12:05:53 2016-08-27 2016-08-27 Outpatient [facility] [id number] 00:00:00 00:00:00 2016-08-06 2016-08-06 Outpatient [facility] [id number] 09:30:09 09:30:09 2016-08-05 2016-08-05 Outpatient [facility] [id number] 07:45:01 07:45:01 2016-08-05 2016-08-05 Outpatient [facility] [id number] 07:31:35 07:31:35 2016-08-05 2016-08-05 Outpatient [facility] [id number] 07:03:38 07:03:38 2016-08-05 2016-08-05 Outpatient [facility] [id number] 00:00:00 00:00:00 2016-07-30 2016-07-30 Outpatient [facility] [id number] 08:54:41 08:54:41 2016-07-30 2016-07-30 Outpatient [facility] [id number] 08:31:03 08:31:03 2016-07-30 2016-07-30 Outpatient [facility] [id number] 00:00:00 00:00:00 2016-07-04 2016-07-04 Outpatient [facility] [id number] 13:13:54 13:13:54 2016-06-18 2016-06-18 Emergency [facility] [id number] 06:01:16 06:01:16 2016-06-18 2016-06-18 Emergency [facility] [id number] 03:35:11 03:35:11 2016-06-12 2016-06-12 Outpatient [facility] [id number] 15:43:01 15:43:01 2016-06-10 2016-06-10 Outpatient [facility] [id number] 15:07:17 15:07:17 2016-06-03 2016-06-03 Emergency [facility] [id number] 22:18:53 22:18:53 2016-06-03 2016-06-03 Emergency [facility] [id number] 21:25:09 21:25:09 2016-06-03 2016-06-03 Outpatient [facility] [id number] 13:20:06 13:20:06 2016-04-24 2016-04-24 Outpatient [facility] [id number] 15:07:56 15:07:56 2016-04-01 2016-04-01 Outpatient [facility] [id number] 00:00:00 00:00:00 2016-03-19 2016-03-19 Outpatient [facility] [id number] 09:28:43 09:28:43 2016-03-17 2016-03-17 Outpatient [facility] [id number] 14:23:13 14:23:13 2016-03-17 2016-03-17 Outpatient [facility] [id number] 11:07:20 11:07:20 2016-03-17 2016-03-17 Outpatient [facility] [id number] 10:16:12 10:16:12 2016-03-11 2016-03-11 Outpatient [facility] [id number] 11:14:32 11:14:32 2016-02-18 2016-02-18 Outpatient [facility] [id number] 10:29:58 10:29:58 2016-02-12 2016-02-12 Outpatient [facility] [id number] 11:32:37 11:32:37 2016-02-12 2016-02-12 Outpatient [facility] [id number] 10:50:02 10:50:02 2016-02-08 2016-02-08 Outpatient [facility] [id number] 09:42:08 09:42:08 Results Test Description Test Time Test Comments Text Results Atomic Results Result Comments POCT-GLUCOSE METER 2019-07-06 21:58:00 Test Item Value Reference Range Comments POC-GLUCOSE METER (BEAKER) 269 mg/dL 70-110 : [facility] [address] (test code = 1538) [place], [address]: Op erator/Audit Consultant ID = [id number] for SAMANTHA VAZQUEZ PROTEIN, RANDOM [id number] 19:54:00 Test Item Value Reference Range Comments PROTEIN, URINE (BEAKER) (test code = 1569) < mg/dL 0-14 Attending Psychiatrist ID - BSCREATININE, RANDOM [id number] 19:53:00 Test Item Value Reference Range Comments CREATININE URINE (BEAKER) (test code = 375) 10.0 mg/dL Reference Range: No NormalsOperator ID - BSOSMOLALITY, [id number] 19:45:00 Test Item Value Reference Range Comments OSMOLALITY URINE (BEAKER) (test code = 614) 176 mOsm/kg 40-1 ,400 SODIUM, RANDOM [id number] 19:42:00 Test Item Value Reference Range Comments SODIUM URINE (BEAKER) (test code = 243) 47 meq/L Reference Range: No NormalsOperator ID - BSCHLORIDE, RANDOM [id number] 19:42:00 Test Item Value Reference Range Comments CHLORIDE URINE (BEAKER) (test code = 682) 49 meq/L Reference Range: No NormalsOperator ID - BSPOTASSIUM, RANDOM [id number] 19:42:00 Test Item Value Reference Range Comments POTASSIUM URINE (BEAKER) (test code = 195) 5.8 meq/L Reference Range: No NormalsOperator ID - BSU/S, RENAL, [id number] 19:15:00Reason for exam:->AKIFINAL REPORT Renal ultrasound dated 07/06/2019 Comment: Real-time transabdominal renal ultrasound was performed.Right kidney measures 13.7 x 7.4 x 7.4 cm. Left kidney measures 13.5 x 6.6 x 7.8 cm. Right renal cortex measures 2.0 cm. Left renal cortex measures 2.4 cm. Echogenicity of both renal parenchyma is increased. There is moderate hydronephrosis on the right and mild hydronephrosis on the left. The urinary bladder measures 900 cc. Post void bladder measures 160 cc. Doppler ultrasound demonstrates patent main renal artery and vein bilaterally. Impression: Bilateral hydronephrosis. Signed: Jaskaran Brown MDReport Verified Date/Time: 07/06/2019 19:15:15 Reading Location: [facility] C013W Consult Reading Room -GLUCOSE [id number] 17:41:00 Test Item Value Reference Range Comments POC-GLUCOSE METER (BEAKER) 318 mg/dL 70-110 : [facility] AT [address] (test code = 1538) [facility], [address]: Attending Psychiatrist/Technic meredith ID = [id number] for DUKES, QUINC Y POCT-GLUCOSE [id number] 11:56:00 Test Item Value Reference Range Comments POC-GLUCOSE METER (BEAKER) 341 mg/dL 70-110 : [facility] AT [address] (test code = 1538) [facility], [address]: Attending Psychiatrist/Technic meredith ID = [id number] for DUKES, QUINC Y HEMOGLOBIN [id number] 09:56:00 Test Item Value Reference Range Comments HEMOGLOBIN A1C (BEAKER) (test code = 368) 9.4 % 4.3-6. 1 POCT-GLUCOSE [id number] 08:06:00 Test Item Value Reference Range Comments POC-GLUCOSE METER (BEAKER) 331 mg/dL 70-110 : [facility] AT [address] (test code = 1538) [facility], [address]: Attending Psychiatrist/Technic meredith ID = [id number] for DUKES, QUINC Y [id number] 04:16:00 Test Item Value Reference Range Comments MAGNESIUM (BEAKER) (test code = 627) 1.2 mg/dL 1.6-2.6 Attending Psychiatrist ID - EFFIE MCOMPREHENSIVE METABOLIC [id number] 04:16:00 Test Item Value Reference Range Comments TOTAL PROTEIN (BEAKER) (test 5.5 gm/dL 6.0-8.3 code = 770) ALBUMIN (BEAKER) (test code = 2.7 g/dL 3.5-5.0 1145) ALKALINE PHOSPHATASE (BEAKER) 158 U/L 40-150 (test code = 346) BILIRUBIN TOTAL (BEAKER) 0.2 mg/dL 0.2-1.2 (test code = 377) SODIUM (BEAKER) (test code = 131 meq/L 136-145 381) POTASSIUM (BEAKER) (test code 4.2 meq/L 3.5-5.1 = 379) CHLORIDE (BEAKER) (test code 102 meq/L 98-107 = 382) CO2 (BEAKER) (test code = 22 meq/L 22-29 355) BLOOD UREA NITROGEN (BEAKER) 36 mg/dL 7-21 (test code = 354) CREATININE (BEAKER) (test 1.95 mg/dL 0.57-1.25 code = 358) GLUCOSE RANDOM (BEAKER) (test 387 mg/dL 70-105 code = 652) CALCIUM (BEAKER) (test code = 7.7 mg/dL 8.4-10.2 697) AST (SGOT) (BEAKER) (test 24 U/L 5-34 code = 353) ALT (SGPT) (BEAKER) (test 20 U/L 6-55 code = 347) EGFR (BEAKER) (test code = INSUF FICIENT CLINICAL DATA TO 1092) CALCULATE ESTIMA SWETA GFR. Attending Psychiatrist ID - EFFIE MCBC (HEMOGRAM ONLY)2019-07-06 03:55:00 Test Item Value Reference Range Comments WHITE BLOOD CELL COUNT (BEAKER) (test code = 4.9 K/ L 3.5 -10.5 775) RED BLOOD CELL COUNT (BEAKER) (test code = 761) 2.50 M/ L 4.63-6.08 HEMOGLOBIN (BEAKER) (test code = 410) 7.3 GM/DL 13.7-17.5 HEMATOCRIT (BEAKER) (test code = 411) 21.7 % 40.1-51.0 MEAN CORPUSCULAR VOLUME (BEAKER) (test code = 86.8 fL 79 .0-92.2 753) MEAN CORPUSCULAR HEMOGLOBIN (BEAKER) (test code 29.2 pg 25.7-32.2 = 751) MEAN CORPUSCULAR HEMOGLOBIN CONC (BEAKER) (test 33.6 GM/DL 32.3-36.5 code = 752) RED CELL DISTRIBUTION WIDTH (BEAKER) (test code 13.9 % 11.6-14.4 = 412) PLATELET COUNT (BEAKER) (test code = 756) 101 K/CU MM 150-45 0 MEAN PLATELET VOLUME (BEAKER) (test code = 754) 11.1 fL 9.4-12.4 NUCLEATED RED BLOOD CELLS (BEAKER) (test code = 0 /100 WBC 0-0 413) URINALYSIS W/ REFLEX URINE [id number] 01:41:00 Test Item Value Reference Range Comments COLOR (BEAKER) (test code = 470) Colorless CLARITY (BEAKER) (test code = 469) Clear SPECIFIC GRAVITY UA (BEAKER) (test code = 468) 1.002 1 .001-1.035 PH UA (BEAKER) (test code = 467) 6.0 5.0-8.0 PROTEIN UA (BEAKER) (test code = 464) Negative Negative GLUCOSE UA (BEAKER) (test code = 365) 1000 mg/dL Negative KETONES UA (BEAKER) (test code = 371) Negative Negative BILIRUBIN UA (BEAKER) (test code = 462) Negative Negative BLOOD UA (BEAKER) (test code = 461) Negative Negative NITRITE UA (BEAKER) (test code = 465) Negative Negative LEUKOCYTE ESTERASE UA (BEAKER) (test code = 466) Large Negative UROBILINOGEN UA (BEAKER) (test code = 463) 0.2 mg/dL 0.2-1 .0 RBC UA (BEAKER) (test code = 519) 1 /HPF WBC UA (BEAKER) (test code = 520) 22 /HPF BACTERIA (BEAKER) (test code = 517) Rare SQUAMOUS EPITHELIAL (BEAKER) (test code = 516) < /HPF SOURCE(BEAKER) (test code = 2795) Attending Psychiatrist ID - [auto]Attending Psychiatrist ID - techPOCT-GLUCOSE [id number] 21:18:00 Test Item Value Reference Range Comments POC-GLUCOSE METER (BEAKER) 359 mg/dL 70-110 : [facility] [address] [facility] (test code = 1538) [facility], [address]: Attending Psychiatrist/Technic meredith ID = [id number] for THEODORE HICKEY JOSEY POCT-GLUCOSE [id number] 17:27:00 Test Item Value Reference Range Comments POC-GLUCOSE METER (BEAKER) 332 mg/dL 70-110 : [facility] [address] [facility] (test code = 1538) [facility], [address]: Attending Psychiatrist/Technic meredith ID = [id number] for SINA ALEX SKELTON POCT-GLUCOSE [id number] 12:23:00 Test Item Value Reference Range Comments POC-GLUCOSE METER (BEAKER) 197 mg/dL 70-110 : [facility] AT [address] (test code = 1538) [facility], [address]: Attending Psychiatrist/Technic meredith ID = [id number] for ARA VALENTIN POCT-GLUCOSE [id number] 09:14:00 Test Item Value Reference Range Comments POC-GLUCOSE METER (BEAKER) 217 mg/dL 70-110 : [facility] AT [address] (test code = 1538) [facility], [address]: Attending Psychiatrist/Technic meredith ID = [id number] for SINA ALEX SKELTON POCT-GLUCOSE [id number] 07:35:00 Test Item Value Reference Range Comments POC-GLUCOSE METER (BEAKER) 259 mg/dL 70-110 : [facility] AT [address] (test code = 1538) [facility], [address]: Attending Psychiatrist/Technic meredith ID = [id number] for DESTINEE SHARMIN CAITLINNARESH BASIC METABOLIC [id number] 05:00:00 Test Item Value Reference Range Comments SODIUM (BEAKER) (test code = 129 meq/L 136-145 381) POTASSIUM (BEAKER) (test 3.6 meq/L 3.5-5.1 code = 379) CHLORIDE (BEAKER) (test code 102 meq/L 98-107 = 382) CO2 (BEAKER) (test code = 21 meq/L 22-29 355) BLOOD UREA NITROGEN (BEAKER) 48 mg/dL 7-21 (test code = 354) CREATININE (BEAKER) (test 1.92 mg/dL 0.57-1.25 code = 358) GLUCOSE RANDOM (BEAKER) 237 mg/dL 70-105 (test code = 652) CALCIUM (BEAKER) (test code 7.9 mg/dL 8.4-10.2 = 697) EGFR (BEAKER) (test code = INSUF FICIENT CLINICAL DATA TO 1092) CALCULATE ESTIMA SWETA GFR. Attending Psychiatrist ID - BSCREATINE KINASE (CK)2019-07-05 05:00:00 Test Item Value Reference Range Comments CREATINE KINASE TOTAL (BEAKER) (test code = 380) 19 U/L 29-200 Attending Psychiatrist ID - BSLIPID [id number] 04:55:00 Test Item Value Reference Range Comments TRIGLYCERIDES (BEAKER) (test code = 540) 278 mg/dL CHOLESTEROL (BEAKER) (test code = 631) 91 mg/dL HDL CHOLESTEROL (BEAKER) (test code = 976) 7 mg/dL LDL CHOLESTEROL CALCULATED (BEAKER) (test code = 28 mg/dL 633) Triglyceride Reference Range: Low Risk <150 Borderline 150-199 High Risk 200-499 Very High Risk >=500Cholesterol Reference Range: Low Risk <200 Borderline 200-239 High Risk >240HDL Cholesterol Reference Range: Low Risk >=60 High Risk <40LDL Cholesterol Reference Range: Optimal <100 Near Optimal 100-129 Borderline 130-159 High 160-189 Very High >=190 Attending Psychiatrist ID - BSHEPATIC FUNCTION [id number] 04:55:00 Test Item Value Reference Range Comments TOTAL PROTEIN (BEAKER) (test code = 770) 5.6 gm/dL 6.0-8.3 ALBUMIN (BEAKER) (test code = 1145) 2.8 g/dL 3.5-5.0 BILIRUBIN TOTAL (BEAKER) (test code = 377) 0.4 mg/dL 0.2-1 .2 BILIRUBIN DIRECT (BEAKER) (test code = 706) 0.2 mg/dL 0.1- 0.5 ALKALINE PHOSPHATASE (BEAKER) (test code = 346) 124 U/L 40-150 AST (SGOT) (BEAKER) (test code = 353) 16 U/L 5-34 ALT (SGPT) (BEAKER) (test code = 347) 16 U/L 6-55 Attending Psychiatrist ID - BSCBC (HEMOGRAM ONLY)2019-07-05 04:38:00 Test Item Value Reference Range Comments WHITE BLOOD CELL COUNT (BEAKER) (test code = 4.3 K/ L 3.5 -10.5 775) RED BLOOD CELL COUNT (BEAKER) (test code = 761) 2.43 M/ L 4.63-6.08 HEMOGLOBIN (BEAKER) (test code = 410) 7.1 GM/DL 13.7-17.5 HEMATOCRIT (BEAKER) (test code = 411) 21.2 % 40.1-51.0 MEAN CORPUSCULAR VOLUME (BEAKER) (test code = 87.2 fL 79 .0-92.2 753) MEAN CORPUSCULAR HEMOGLOBIN (BEAKER) (test code 29.2 pg 25.7-32.2 = 751) MEAN CORPUSCULAR HEMOGLOBIN CONC (BEAKER) (test 33.5 GM/DL 32.3-36.5 code = 752) RED CELL DISTRIBUTION WIDTH (BEAKER) (test code 13.9 % 11.6-14.4 = 412) PLATELET COUNT (BEAKER) (test code = 756) 102 K/CU MM 150-45 0 MEAN PLATELET VOLUME (BEAKER) (test code = 754) 10.8 fL 9.4-12.4 NUCLEATED RED BLOOD CELLS (BEAKER) (test code = 0 /100 WBC 0-0 413) PROTHROMBIN [id number] 04:31:00 Test Item Value Reference Range Comments PROTIME (BEAKER) (test code = 759) 15.3 seconds 11.9-14.2 INR (BEAKER) (test code = 370) 1.2 <=5.9 Effective 08/25/2018: PT Reference Range ChangeNew: 11.9-14.2 Previous: 11.7- 14.7RECOMMENDED COUMADIN/WARFARIN INR THERAPY RANGESSTANDARD DOSE: 2.0-3.0 Includes: PROPHYLAXIS for venous thrombosis, systemic embolization; TREATMENT for venous thrombosis and/or pulmonary embolus.HIGH RISK: Target INR is2.5-3.5 for patients wiht mechanical heart valves.(CELLAVISION MANUAL DIFF)2019-07-04 23:19:00 Test Item Value Reference Range Comments NEUTROPHILS - REL (CELLAVISION)(BEAKER) (test code 71 % = 2816) LYMPHOCYTES - REL (CELLAVISION)(BEAKER) (test code 13 % = 2817) MONOCYTES - REL (CELLAVISION)(BEAKER) (test code = 11 % 2818) BANDS - REL (CELLAVISION)(BEAKER) (test code = 5 % 0 -10 2826) NEUTROPHILS - ABS (CELLAVISION)(BEAKER) (test code 2.84 K/ul 1.78-5.38 = 2830) LYMPHOCYTES - ABS (CELLAVISION)(BEAKER) (test code 0.52 K/ul 1.32-3.57 = 2831) MONOCYTES - ABS (CELLAVISION)(BEAKER) (test code = 0.44 K/uL 0.30-0.82 2832) BANDS - ABS (CELLAVISION)(BEAKER) (test code = 0.20 K/uL 0 .00-0.80 2840) TOTAL COUNTED (BEAKER) (test code = 1351) 100 RBC MORPHOLOGY (BEAKER) (test code = 762) Normal GIANT PLATELETS (BEAKER) (test code = 313) Present VACUOLATED NEUTROPHILS (BEAKER) (test code = 483) Present ARTIFACT (CELLAVISION)(BEAKER) (test code = 3432) Present PLATELET CONCENTRATION (CELLAVISION)(BEAKER) (test Decreased code = 3438) Attending Psychiatrist DELORES - Britmarsha comments: Slide comments:CBC W/PLT COUNT & AUTO [id number] 22:48:00 Test Item Value Reference Range Comments WHITE BLOOD CELL COUNT (BEAKER) (test code = 775) 4.0 K/ L 3.5-10.5 RED BLOOD CELL COUNT (BEAKER) (test code = 761) 2.48 M/ L 4.63-6.08 HEMOGLOBIN (BEAKER) (test code = 410) 7.4 GM/DL 13.7-17.5 HEMATOCRIT (BEAKER) (test code = 411) 21.8 % 40.1-51.0 MEAN CORPUSCULAR VOLUME (BEAKER) (test code = 87.9 fL 79 .0-92.2 753) MEAN CORPUSCULAR HEMOGLOBIN (BEAKER) (test code = 29.8 pg 25.7-32.2 751) MEAN CORPUSCULAR HEMOGLOBIN CONC (BEAKER) (test 33.9 GM/DL 32.3-36.5 code = 752) RED CELL DISTRIBUTION WIDTH (BEAKER) (test code = 13.8 % 11.6-14.4 412) PLATELET COUNT (BEAKER) (test code = 756) 92 K/CU MM 150-45 0 MEAN PLATELET VOLUME (BEAKER) (test code = 754) 11.1 fL 9.4-12.4 NUCLEATED RED BLOOD CELLS (BEAKER) (test code = 0 /100 WBC 0-0 413) COMPREHENSIVE METABOLIC [id number] 18:31:00 Test Item Value Reference Range Comments TOTAL PROTEIN (BEAKER) (test 6.0 gm/dL 6.0-8.3 Spe cimen moderately hemolyzed code = 770) ALBUMIN (BEAKER) (test code = 2.9 g/dL 3.5-5.0 Sp ecimen moderately hemolyzed 1145) ALKALINE PHOSPHATASE (BEAKER) 125 U/L 40-150 (test code = 346) BILIRUBIN TOTAL (BEAKER) 0.3 mg/dL 0.2-1.2 Specime n moderately hemolyzed (test code = 377) SODIUM (BEAKER) (test code = 126 meq/L 136-145 381) POTASSIUM (BEAKER) (test code 4.6 meq/L 3.5-5.1 Sp ecimen moderately hemolyzed = 379) CHLORIDE (BEAKER) (test code 101 meq/L 98-107 = 382) CO2 (BEAKER) (test code = 17 meq/L 22-29 355) BLOOD UREA NITROGEN (BEAKER) 51 mg/dL 7-21 (test code = 354) CREATININE (BEAKER) (test 2.11 mg/dL 0.57-1.25 Specim en moderately hemolyzed code = 358) GLUCOSE RANDOM (BEAKER) (test 160 mg/dL 70-105 code = 652) CALCIUM (BEAKER) (test code = 7.6 mg/dL 8.4-10.2 697) AST (SGOT) (BEAKER) (test 27 U/L 5-34 Specim en moderately hemolyzed code = 353) ALT (SGPT) (BEAKER) (test 19 U/L 6-55 Specim en moderately hemolyzed code = 347) EGFR (BEAKER) (test code = INSUF FICIENT CLINICAL DATA TO 1092) CALCULATE ESTIMA SWETA GFR. Attending Psychiatrist ID - BSPOCT-GLUCOSE [id number] 16:51:00 Test Item Value Reference Range Comments POC-GLUCOSE METER (BEAKER) 165 mg/dL 70-110 : FAITH SWETA AT [facility] [address] (test code = 1538) [facility], 7 7030: Attending Psychiatrist/Technic meredith ID = [id number] for JOSSELINE CHEEMA POC [id number] 10:46:21 Test Item Value Reference Range Comments Glucose POC (test code = 427 mg/dL 70-115 Notify RN or MDIf you consider Glucose POC) your patient cri tically ill, the Eliza-Accu C heck Infrom II meter should not be used for Glucose determin ation. Draw a venous Glucose a nd send to the main Lab for dunia lysis. POC [id number] 07:41:17 Test Item Value Reference Range Comments Glucose POC (test code = 268 mg/dL 70-115 Notify RN or MDIf you consider Glucose POC) your patient cri tically ill, the Eliza-Accu C heck Infrom II meter should not be used for Glucose determin ation. Draw a venous Glucose a nd send to the main Lab for dunia lysis. POC [id number] 20:06:15 Test Item Value Reference Range Comments Glucose POC (test code = 259 mg/dL 70-115 If you consider your patient Glucose POC) critically ill, the Eliza-Accu Check Infrom II meter should not be used for Glucose determination. D raw a venous Glucose and send to the main Lab for analysis . POC [id number] 16:24:53 Test Item Value Reference Range Comments Glucose POC (test code = 171 mg/dL 70-115 If you consider your patient Glucose POC) critically ill, the Eliza-Accu Check Infrom II meter should not be used for Glucose determination. D raw a venous Glucose and send to the main Lab for analysis . Troponin [id number] 13:20:34 Test Item Value Reference Range Comments Troponin-T (test code = 14.390 ng/L 0.000-22.000 The CV o f the assay at 99th Troponin-T) percentile for b oth male and female patient p opulation is < 10%. A rise and fall in MARKELL with at least one grecia ue above the 99th percentile with clinical evidence of myoc ardial ischemia would support a diagnosis of AMI. A delta of at least 20% is recommended to a ccess acute changes in resul ts above the 99th percentile in serial measurements. St able MARKELL levels (<20%) delta abo ve the 99th percentile URL w ould support a diagnosis of chr onic myocardial injury. Creatine [id number] 13:19:47 Test Item Value Reference Range Comments CK (test code = CK) 138 U/L 39-308 Creatine Kinase MB [id number] 13:18:50 Test Item Value Reference Range Comments CKMB (test code = CKMB) 4.8 ng/mL 0.0-4.9 Creatine Kinase MB [id number] 13:18:50 Test Item Value Reference Range Comments CKMB (test code = CKMB) 4.8 ng/mL 0.0-4.9 CKMB % (test code = CKMB %) 3.5 % 0.0-3.4 Drugs of Abuse Urine [id number] 13:05:26 Test Item Value Reference Range Comments Amphetamine Screen Ur (test code Negative Negative For diagnostic purposes = Amphetamine Screen Ur) only. P ositive results should always be assessed in conjunction with a patient's medical history. Barbiturate Screen Ur (test code Negative Negative = Barbiturate Screen Ur) Benzodiazepines Ur (test code = Negative Negative Benzodiazepines Ur) Cocaine Screen Ur (test code = Negative Negative Cocaine Screen Ur) U Methadone (test code = U Negative Negative Methadone) Opiate Screen Ur (test code = Negative Negative Opiate Screen Ur) U PCP Scrn (test code = U PCP Negative Negative Scrn) U Propoxyphene (test code = U Negative Negative Propoxyphene) Cannabinoid Screen Ur (test code Negative Negative = Cannabinoid Screen Ur) POC [id number] 11:32:18 Test Item Value Reference Range Comments Glucose POC (test code = 296 mg/dL 70-115 If you consider your patient Glucose POC) critically ill, the Eliza-Accu Check Infrom II meter should not be used for Glucose determination. D raw a venous Glucose and send to the main Lab for analysis . Thyroid Stimulating [id number] 07:33:08 Test Item Value Reference Range Comments TSH (test code = TSH) 1.020 mIU/mL 0.270-4.200 Hemoglobin [id number] 07:32:52 Test Item Value Reference Range Comments Hemoglobin A1c (test code = 11.0 % 4.8-5.9 Non Diabetic 4.8-5.9%Diabetic Hemoglobin A1c) <7.0% Lipid [id number] 07:27:53 Test Item Value Reference Range Comments Cholesterol Total (test 156 mg/dL 0-200 RISK OF HEART code = Cholesterol Total) DISEAS EPublished by [employer]te Optimal Borderline Increased RiskCH OL <200 200-239 >240TRIG <150 150-199 >200HDL Male >60 <40HDL Female > 60 <50LDL <100 130-159 >16 0LDL Near optimal is 100-1 29 Triglycerides (test code 429 mg/dL 9-200 = Triglycerides) HDL (test code = HDL) 23 mg/dL 40-60 LDL (test code = LDL) N/A Trig >400 0-130 LDL calcul ation is mg/dL unreliable when Triglyceride is greater than 400. VLDL (test code = VLDL) N/A Trig >400 5-40 VLDL gwen culation is mg/dL unreliable when Triglyceride is greater than 400. Chol/HDL (test code = 6.8 ratio 0.0-5.0 Chol/HDL) LDL/HDL Ratio (test code N/A Trig >400 LDL/HDL Ratio calculation = LDL/HDL Ratio) is unreliable w hen Triglyceride is greater than 400. Magnesium [id number] 07:27:53 Test Item Value Reference Range Comments Magnesium Level (test code = Magnesium Level) 1.5 mg/dL 1. 7-2.5 Phosphorus [id number] 07:27:53 Test Item Value Reference Range Comments Phosphorus Level (test code = Phosphorus Level) 2.80 mg/dL 2.70-4.50 Comprehensive Metabolic [id number] 07:27:52 Test Item Value Reference Range Comments Sodium Level (test code = Sodium 138.0 mmol/L 135.0-145.0 Level) Potassium Level (test code = 4.1 mmol/L 3.5-5.1 Potassium Level) Chloride Level (test code = Chloride 100 mmol/L 98-105 Level) CO2 (test code = CO2) 20 mmol/L 22-29 Anion Gap (test code = Anion Gap) 18 mmol/L 7-16 BUN (test code = BUN) 11.40 mg/dL 6.00-20.00 Creatinine Level (test code = 0.90 mg/dL 0.70-1.20 Creatinine Level) BUN/Creat Ratio (test code = 13 BUN/Creat Ratio) Glucose Level (test code = Glucose 193 mg/dL 70-115 Level) Calcium Level (test code = Calcium 8.5 mg/dL 8.3-10.5 Level) Alk Phos (test code = Alk Phos) 194 U/L 40-129 Bilirubin Total (test code = <0.1 mg/dL 0.1-0.9 Bilirubin Total) Albumin Level (test code = Albumin 3.9 g/dL 3.5-5.2 Level) Protein Total (test code = Protein 6.6 g/dL 6.4-8.3 Total) ALT (test code = ALT) 13 U/L 1-41 AST (test code = AST) 17 U/L 1-40 Specimen H emolyzed. Globulin (test code = Globulin) 2.7 g/dL 2.9-3.1 A/G Ratio (test code = A/G Ratio) 1.4 ratio Comprehensive Metabolic [id number] 07:27:52 Test Item Value Reference Range Comments Sodium Level (test code = 138.0 mmol/L 135.0-145.0 Sodium Level) Potassium Level (test 4.1 mmol/L 3.5-5.1 code = Potassium Level) Chloride Level (test code 100 mmol/L 98-105 = Chloride Level) CO2 (test code = CO2) 20 mmol/L 22-29 Anion Gap (test code = 18 mmol/L 7-16 Anion Gap) BUN (test code = BUN) 11.40 mg/dL 6.00-20.00 Creatinine Level (test 0.90 mg/dL 0.70-1.20 code = Creatinine Level) BUN/Creat Ratio (test 13 code = BUN/Creat Ratio) Glucose Level (test code 193 mg/dL 70-115 = Glucose Level) Calcium Level (test code 8.5 mg/dL 8.3-10.5 = Calcium Level) Alk Phos (test code = Alk 194 U/L 40-129 Phos) Bilirubin Total (test <0.1 mg/dL 0.1-0.9 code = Bilirubin Total) Albumin Level (test code 3.9 g/dL 3.5-5.2 = Albumin Level) Protein Total (test code 6.6 g/dL 6.4-8.3 = Protein Total) ALT (test code = ALT) 13 U/L 1-41 AST (test code = AST) 17 U/L 1-40 Specimen H emolyzed. Globulin (test code = 2.7 g/dL 2.9-3.1 Globulin) A/G Ratio (test code = 1.4 ratio A/G Ratio) eGFR AA (test code = eGFR >60 mL/min/1.73 m2 eGF R (estimated AA) Glomerular Filtr ation Rate) is an vero mated value, calculate d from the patient's se rum creatinine using the MDRD equation. It is NOT the patient's actual GFR. The eGFR provides a more clinically usefu l measure of kidney diseas e than serum creatinine alone.This ca lculation takes sex and ra ce into account, if the information is p rovided. If the race is n ot provided, and th e patient is -Ameri can, multiply by 1.21 2. If sex is not provided, and the patient is femal e, multiply by 0.74 2. Results for arnaud ents <18 years of age hav e not been validated b y the MDRD study and miguel pagan be interpreted with caution. eGFR Result Interpretation:e GFR > or = 60 is in the N ormal RangeeGFR < 60 m ay mean kidney diseaseeG FR < 15 may mean kidney failure Range s recommended by alex biswas [employer], http://nkdep.nih .gov Comprehensive Metabolic [id number] 07:27:52 Test Item Value Reference Range Comments Sodium Level (test code = 138.0 mmol/L 135.0-145.0 Sodium Level) Potassium Level (test 4.1 mmol/L 3.5-5.1 code = Potassium Level) Chloride Level (test code 100 mmol/L 98-105 = Chloride Level) CO2 (test code = CO2) 20 mmol/L 22-29 Anion Gap (test code = 18 mmol/L 7-16 Anion Gap) BUN (test code = BUN) 11.40 mg/dL 6.00-20.00 Creatinine Level (test 0.90 mg/dL 0.70-1.20 code = Creatinine Level) BUN/Creat Ratio (test 13 code = BUN/Creat Ratio) Glucose Level (test code 193 mg/dL 70-115 = Glucose Level) Calcium Level (test code 8.5 mg/dL 8.3-10.5 = Calcium Level) Alk Phos (test code = Alk 194 U/L 40-129 Phos) Bilirubin Total (test <0.1 mg/dL 0.1-0.9 code = Bilirubin Total) Albumin Level (test code 3.9 g/dL 3.5-5.2 = Albumin Level) Protein Total (test code 6.6 g/dL 6.4-8.3 = Protein Total) ALT (test code = ALT) 13 U/L 1-41 AST (test code = AST) 17 U/L 1-40 Specimen H emolyzed. Globulin (test code = 2.7 g/dL 2.9-3.1 Globulin) A/G Ratio (test code = 1.4 ratio A/G Ratio) eGFR AA (test code = eGFR >60 mL/min/1.73 m2 eGF R (estimated AA) Glomerular Filtr ation Rate) is an vero mated value, calculate d from the patient's se rum creatinine using the MDRD equation. It is NOT the patient's actual GFR. The eGFR provides a more clinically usefu l measure of kidney diseas e than serum creatinine alone.This ca lculation takes sex and ra ce into account, if the information is p rovided. If the race is n ot provided, and th e patient is -Ameri can, multiply by 1.21 2. If sex is not provided, and the patient is femal e, multiply by 0.74 2. Results for arnaud ents <18 years of age hav e not been validated b y the MDRD study and miguel pagan be interpreted with caution. eGFR Result Interpretation:e GFR > or = 60 is in the N ormal RangeeGFR < 60 m ay mean kidney diseaseeG FR < 15 may mean kidney failure Range s recommended by alex biswas [employer], http://nkdep.nih .gov eGFR Non-AA (test code = >60.00 mL/min/1.73 eGFR (estimated eGFR Non-AA) m2 Glomerular Filtr ation Rate) is an vero mated value, calculate d from the patient's se rum creatinine using the MDRD equation. It is NOT the patient's actual GFR. The eGFR provides a more clinically usefu l measure of kidney diseas e than serum creatinine alone.This ca lculation takes sex and ra ce into account, if the information is p rovided. If the race is n ot provided, and th e patient is -Ameri can, multiply by 1.21 2. If sex is not provided, and the patient is femal e, multiply by 0.74 2. Results for arnaud ents <18 years of age hav e not been validated b y the MDRD study and s hould be interpreted with caution. eGFR Result Interpretation:e GFR > or = 60 is in the N ormal RangeeGFR < 60 m ay mean kidney diseaseeG FR < 15 may mean kidney failure Range s recommended by alex biswas [employer], http://nkdep.nih .gov POC [id number] 07:20:10 Test Item Value Reference Range Comments Glucose POC (test code = 225 mg/dL 70-115 If you consider your patient Glucose POC) critically ill, the Eliza-Accu Check Infrom II meter should not be used for Glucose determination. D raw a venous Glucose and send to the main Lab for analysis . Creatine [id number] 07:19:03 Test Item Value Reference Range Comments CK (test code = CK) 119 U/L 39-308 Troponin [id number] 07:19:03 Test Item Value Reference Range Comments Troponin-T (test code = 19.390 ng/L 0.000-22.000 The CV o f the assay at 99th Troponin-T) percentile for b oth male and female patient p opulation is < 10%. A rise and fall in MARKELL with at least one grecia ue above the 99th percentile with clinical evidence of myoc ardial ischemia would support a diagnosis of AMI. A delta of at least 20% is recommended to a ccess acute changes in resul ts above the 99th percentile in serial measurements. St able MARKELL levels (<20%) delta abo ve the 99th percentile URL w ould support a diagnosis of chr onic myocardial injury. Creatine Kinase MB [id number] 07:17:15 Test Item Value Reference Range Comments CKMB (test code = CKMB) 3.8 ng/mL 0.0-4.9 Creatine Kinase MB [id number] 07:17:15 Test Item Value Reference Range Comments CKMB (test code = CKMB) 3.8 ng/mL 0.0-4.9 CKMB % (test code = CKMB %) 3.2 % 0.0-3.4 Complete Blood Count without [id number] 06:59:02 Test Item Value Reference Range Comments WBC (test code = WBC) 6.5 x10 4.4-10.5 RBC (test code = RBC) 4.01 x10 4.10-5.70 Hgb (test code = Hgb) 11.3 g/dL 13.4-17.4 Hct (test code = Hct) 33.6 % 38.7-52.0 MCV (test code = MCV) 83.80 fL 80.00-100.00 MCH (test code = MCH) 28.2 pg 27.0-32.5 MCHC (test code = MCHC) 33.60 g/dL 32.00-37.50 RDW CV (test code = RDW CV) 16.6 % 11.5-14.5 Platelets (test code = Platelets) 177.0 x10 140.0-440.0 MPV (test code = MPV) 9.6 fL nRBC (test code = nRBC) 0 NRBC Abs (test code = NRBC Abs) 0.00 x10 IPF (test code = IPF) 0 % POC [id number] 06:12:19 Test Item Value Reference Range Comments Glucose POC (test code = 267 mg/dL 70-115 If you consider your patient Glucose POC) critically ill, the Eliza-Accu Check Infrom II meter should not be used for Glucose determination. D raw a venous Glucose and send to the main Lab for analysis . POC [id number] 05:00:38 Test Item Value Reference Range Comments Glucose POC (test code = 61 mg/dL 70-115 If you consider your patient Glucose POC) critically ill, the Eliza-Accu Check Infrom II meter should not be used for Glucose determination. D raw a venous Glucose and send to the main Lab for analysis . POC [id number] 04:01:42 Test Item Value Reference Range Comments Glucose POC (test code = 151 mg/dL 70-115 Notify RN or MDIf you consider Glucose POC) your patient cri tically ill, the Eliza-Accu C heck Infrom II meter should not be used for Glucose determin ation. Draw a venous Glucose a nd send to the main Lab for dunia lysis. POC [id number] 03:15:14 Test Item Value Reference Range Comments Glucose POC (test code = 501 mg/dL 70-115 Notify RN or MDIf you consider Glucose POC) your patient cri tically ill, the Eliza-Accu C heck Infrom II meter should not be used for Glucose determin ation. Draw a venous Glucose a nd send to the main Lab for dunia lysis. Lactic Acid, Plasma (Venous)2018-10-03 02:23:55 Test Item Value Reference Range Comments Lactic Acid, Plasma (Venous) (test code = Lactic 1.9 mmol/L 0.5-1.9 Acid, Plasma (Venous)) POC [id number] 02:08:55 Test Item Value Reference Range Comments pH Art (test code = pH Art) 7.32 7.35-7.45 pH Temp Andrei Art (test code = pH Temp Andrei Art) 7.32 pCO2 Art (test code = pCO2 Art) 42 mmHg 35-45 pCO2 Temp Andrei Art (test code = pCO2 Temp Andrei 42 mmHg Art) pO2 Art (test code = pO2 Art) 77 mmHg 80-100 pO2 Temp Andrei Art (test code = pO2 Temp Andrei 77 mmHg Art) ctHb Art (test code = ctHb Art) 10.4 g/dL 12.2-17.4 O2 Sat Art (test code = O2 Sat Art) 94.4 % 80.0-100.0 FO2Hb Art (test code = FO2Hb Art) 91.2 % 0.0-100.0 FCOHb Art (test code = FCOHb Art) 2.4 % 0.0-20.0 FMetHb Art (test code = FMetHb Art) 1.0 % 0.0-20.0 HCO3 Art (test code = HCO3 Art) 21.2 mmol/L 22.0-26.0 L Hct Art (test code = Hct Art) 32 % 34-52 Na Art (test code = Na Art) 139 mmol/L 135-145 K Art (test code = K Art) 3.1 mmol/L 3.5-4.5 iCa Art (test code = iCa Art) 1.16 mmol/L 1.00-1.50 Cl Art (test code = Cl Art) 105 mmol/L 95-105 Glu Art (test code = Glu Art) 275 mg/dL 75-115 Base Excess Arterial (test code = Base Excess -4.7 Arterial) FiO2 Art (test code = FiO2 Art) 21 % Lactate Art (test code = Lactate Art) 1.6 mmol/L 0.5-2.2 Draw Site (test code = Draw Site) Brachial. R POC [id number] 01:25:51 Test Item Value Reference Range Comments Glucose POC (test code = 366 mg/dL 70-115 If you consider your patient Glucose POC) critically ill, the Eliza-Accu Check Infrom II meter should not be used for Glucose determination. D raw a venous Glucose and send to the main Lab for analysis . [id number] 22:30:52 Test Item Value Reference Range Comments Acetone (Ketones) (test code = Acetone (Ketones)) Negative Negative Lot # (test code = Lot #) [id number] Expiration Dt (test code = Expiration Dt) [id number] Neg Control (test code = Neg Control) Negative Pos Control (test code = Pos Control) Positive Urinalysis with Culture, if [id number] 22:29:03 Test Item Value Reference Range Comments UA Color (test code = UA STRAW Yellow Color) UA Appear (test code = UA CLEAR Clear Appear) UA pH (test code = UA pH) 5 UA Spec Grav (test code = UA 1.020 1.001-1.035 Spec Grav) UA Glucose (test code = UA 1000 mg/dL Negative Glucose) UA Bili (test code = UA Bili) NEG Negative UA Ketones (test code = UA NEG Negative Ketones) UA Blood (test code = UA NEG Negative Blood) UA Protein (test code = UA NEG Negative Protein) UA Urobilinogen (test code = 0.2 mg/dL UA Urobilinogen) UA Nitrite (test code = UA NEG Negative Nitrite) UA Leuk Est (test code = UA NEG Negative Leuk Est) UA Micro Ind? (test code = UA Not Indicated Not Indicated Re sult created by rule Micro Ind?) [id number]_ IND Comprehensive Metabolic [id number] 22:13:44 Test Item Value Reference Range Comments Sodium Level (test code = 120.0 mmol/L 135.0-145.0 Sodium Level) Potassium Level (test 5.2 mmol/L 3.5-5.1 code = Potassium Level) Chloride Level (test code 81 mmol/L 98-105 = Chloride Level) CO2 (test code = CO2) 21 mmol/L 22-29 Anion Gap (test code = 18 mmol/L 7-16 Anion Gap) BUN (test code = BUN) 17.60 mg/dL 6.00-20.00 Creatinine Level (test 1.50 mg/dL 0.70-1.20 code = Creatinine Level) BUN/Creat Ratio (test 12 code = BUN/Creat Ratio) Glucose Level (test code 920 mg/dL 70-115 Critica l results called = Glucose Level) to Luiz BOSS at 10/02/2018 22:13:2 1 CDT_ by RS_. Read back and verified? _yes Calcium Level (test code 8.4 mg/dL 8.3-10.5 = Calcium Level) Alk Phos (test code = Alk 236 U/L 40-129 Phos) Bilirubin Total (test 0.3 mg/dL 0.1-0.9 code = Bilirubin Total) Albumin Level (test code 4.1 g/dL 3.5-5.2 = Albumin Level) Protein Total (test code 6.7 g/dL 6.4-8.3 = Protein Total) ALT (test code = ALT) 14 U/L 1-41 AST (test code = AST) 16 U/L 1-40 Globulin (test code = 2.6 g/dL 2.9-3.1 Globulin) A/G Ratio (test code = 1.6 ratio A/G Ratio) eGFR AA (test code = eGFR 59 mL/min/1.73 m2 eGFR (estimated AA) Glomerular Filtr ation Rate) is an vero mated value, calculate d from the patient's se rum creatinine using the MDRD equation. It is NOT the patient's actual GFR. The eGFR provides a more clinically usefu l measure of kidney diseas e than serum creatinine alone.This ca lculation takes sex and ra ce into account, if the information is p rovided. If the race is n ot provided, and th e patient is -Ameri can, multiply by 1.21 2. If sex is not provided, and the patient is femal e, multiply by 0.74 2. Results for arnaud ents <18 years of age hav e not been validated b y the MDRD study and s latasha be interpreted with caution. eGFR Result Interpretation:e GFR > or = 60 is in the N ormal RangeeGFR < 60 m ay mean kidney diseaseeG FR < 15 may mean kidney failure Range s recommended by t [employer] Kid[employer] Foundation, http://nkdep.nih .gov eGFR Non-AA (test code = 48.96 mL/min/1.73 eGFR (estimated eGFR Non-AA) m2 Glomerular Filtr ation Rate) is an vero mated value, calculate d from the patient's se rum creatinine using the MDRD equation. It is NOT the patient's actual GFR. The eGFR provides a more clinically usefu l measure of kidney diseas e than serum creatinine alone.This ca lculation takes sex and ra ce into account, if the information is p rovided. If the race is n ot provided, and th e patient is -Ameri can, multiply by 1.21 2. If sex is not provided, and the patient is femal e, multiply by 0.74 2. Results for arnaud ents <18 years of age hav e not been validated b y the MDRD study and s latasha be interpreted with caution. eGFR Result Interpretation:e GFR > or = 60 is in the N ormal RangeeGFR < 60 m ay mean kidney diseaseeG FR < 15 may mean kidney failure Range s recommended by alex [employer] Kidney Foundation, http://nkdep.nih .gov Alcohol [id number] 22:02:32 Test Item Value Reference Range Comments Ethanol Level (test code = 0.30 g/dL 0.00-0.01 Criti gwen results called to RN, Ethanol Level) Cathy Antony at 2018 22:01:54 CDT_ by RS_. Re ad back and verified? _yesIn toxicated 0.080 g/dL or mo re Ethanol Inst (test code = 302 Ethanol Inst) Magnesium [id number] 21:53:52 Test Item Value Reference Range Comments Magnesium Level (test code = Magnesium Level) 1.6 mg/dL 1. 7-2.5 Phosphorus [id number] 21:53:52 Test Item Value Reference Range Comments Phosphorus Level (test code = Phosphorus Level) 4.40 mg/dL 2.70-4.50 Automated [id number] 21:32:53 Test Item Value Reference Range Comments Neutro Auto (test code = Neutro Auto) 57.7 % 36.0-70.0 Lymph Auto (test code = Lymph Auto) 28.4 % 12.0-44.0 Grundy Auto (test code = Grundy Auto) 10.8 % 0.0-11.0 Eos, Auto (test code = Eos, Auto) 1.4 % 0.0-7.0 Basophil Auto (test code = Basophil Auto) 0.7 % 0.0-2. 0 Neutro Absolute (test code = Neutro Absolute) 5.5 x10 1. 6-7.4 Lymph Absolute (test code = Lymph Absolute) 2.69 x10 .50- 4.60 Grundy Absolute (test code = Grundy Absolute) 1.02 x10 .00-1. 20 Eos Absolute (test code = Eos Absolute) 0.13 x10 0.00-0.7 4 Baso Absolute (test code = Baso Absolute) 0.07 x10 0.00-0 .21 IG [id number] 21:32:53 Test Item Value Reference Range Comments IG (test code = IG) 1.0 % 0.0-5.0 IG Abs (test code = IG Abs) 0 x10 Complete Blood Count with [id number] 21:32:52 Test Item Value Reference Range Comments WBC (test code = WBC) 9.5 x10 4.4-10.5 RBC (test code = RBC) 3.85 x10 4.10-5.70 Hgb (test code = Hgb) 10.8 g/dL 13.4-17.4 Hct (test code = Hct) 33.5 % 38.7-52.0 MCV (test code = MCV) 87.00 fL 80.00-100.00 MCHC (test code = MCHC) 32.20 g/dL 32.00-37.50 RDW CV (test code = RDW CV) 16.8 % 11.5-14.5 MCH (test code = MCH) 28.1 pg 27.0-32.5 Platelets (test code = 246.0 x10 140.0-440.0 Platelets) MPV (test code = MPV) 10.4 fL Slide Review (test code = Auto Auto Result created by Slide Review) [email or web address] _AUTO nRBC (test code = nRBC) 0 NRBC Abs (test code = NRBC 0.00 x10 Abs) IPF (test code = IPF) 0 % POC [id number] 20:55:21 Test Item Value Reference Range Comments pH Art (test code = pH Art) 7.28 7.35-7.45 pH Temp Andrei Art (test code = pH Temp Andrei Art) 7.28 pCO2 Art (test code = pCO2 Art) 45 mmHg 35-45 pCO2 Temp Andrei Art (test code = pCO2 Temp Andrei 45 mmHg Art) pO2 Art (test code = pO2 Art) 71 mmHg 80-100 pO2 Temp Andrei Art (test code = pO2 Temp Andrei 71 mmHg Art) ctHb Art (test code = ctHb Art) 11.0 g/dL 12.2-17.4 O2 Sat Art (test code = O2 Sat Art) 91.2 % 80.0-100.0 FO2Hb Art (test code = FO2Hb Art) 87.9 % 0.0-100.0 FCOHb Art (test code = FCOHb Art) 3.6 % 0.0-20.0 FMetHb Art (test code = FMetHb Art) 0.0 % 0.0-20.0 HCO3 Art (test code = HCO3 Art) 21.3 mmol/L 22.0-26.0 L Hct Art (test code = Hct Art) 34 % 34-52 Na Art (test code = Na Art) 124 mmol/L 135-145 K Art (test code = K Art) 4.8 mmol/L 3.5-4.5 iCa Art (test code = iCa Art) 1.15 mmol/L 1.00-1.50 Cl Art (test code = Cl Art) 86 mmol/L 95-105 Glu Art (test code = Glu Art) 892 mg/dL 75-115 L Base Excess Arterial (test code = Base Excess -5.3 Arterial) FiO2 Art (test code = FiO2 Art) 21 % Lactate Art (test code = Lactate Art) 3.1 mmol/L 0.5-2.2 Draw Site (test code = Draw Site) Radial. R COMPREHENSIVE METABOLIC [id number] 22:26:00 Test Item Value Reference Range Comments SODIUM (test code = NA) 137 MMOL/L 137-145 POTASSIUM (test code = K) 4.8 MMOL/L 3.5-5.1 CHLORIDE (test code = CL) 83 MMOL/L 98-107 CARBON DIOXIDE (test code = 28 MMOL/L 22-30 CO2) ANION GAP (test code = GAP) 31 MMOL/L 14-24 GLUCOSE (test code = GLU) 613 MG/DL 74-106 CALLED TO TRUDY Burnett & READBACK ON 07/29 12/16 AT 2225 Elizabeth Madrigal BLOOD UREA NITROGEN (test code 14 MG/DL 9-20 = BUN) GLOMERULAR FILTRATION RATE > 60 Repor ting units: (test code = GFR) ml/min/1.73 m2 (Modified MDRD Formula)Ref erence Range: > or = 60 ml/min/1.73 m2 CREATININE (test code = CREAT) 0.90 MG/DL 0.66-1.25 TOTAL PROTEIN (test code = 9.6 G/DL 6.2-7.6 PROT) ALBUMIN (test code = ALB) 5.2 G/DL 3.5-5.0 CALCIUM (test code = CA) 9.5 MG/DL 8.4-10.2 BILIRUBIN TOTAL (test code = 0.8 MG/DL 0.2-1.3 BILT) SGOT/AST (test code = AST) 120 UNITS/L 17-59 SGPT/ALT (test code = ALT) 92 UNITS/L 21-72 ALKALINE PHOSPHATASE (test 255 UNITS/L 38-126 code = ALKP) [id number] 22:26:00 Test Item Value Reference Range Comments ALCOHOL (test code = ALC) 282.0 MG/DL <10 CALLED TO TRUDY Ortiz & READBACK ON 08/25/18 AT 2 226 Domenica Madrigal CBC W/O [id number] 22:00:00 Test Item Value Reference Range Comments WHITE BLOOD CELL (test code = WBC) 8.6 K/MM3 3.8-9.8 RED BLOOD CELL (test code = RBC) 4.73 M/MM3 3.95-5.67 HEMOGLOBIN (test code = HGB) 13.0 G/DL 12.4-16.7 HEMATOCRIT (test code = HCT) 39.0 % 35.9-49.5 MEAN CELL VOLUME (test code = MCV) 83 fL 81.7-96.1 MEAN CELL HGB (test code = MCH) 27.5 pg 27.6-33.2 MEAN CELL HGB CONCETRATION (test code = MCHC) 33.3 % 32 .9-35.5 RED CELL DISTRIBUTION WIDTH (test code = RDW) 14.9 % 12 .1-15.2 PLATELET COUNT (test code = PLT) 194 K/MM3 129-368 NEUTROPHIL # (test code = NT#) 5.67 K/mm3 2.0-7.6 IMMATURE GRANULOCYTE # (test code = IG#) 0.05 x10 3/uL 0-0.03 LYMPHOCYTE # (test code = LY#) 2.40 K/mm3 1.0-3.8 MONOCYTE # (test code = MO#) 0.41 K/mm3 0.1-0.8 EOSINOPHIL # (test code = EO#) 0.02 K/mm3 0.0-0.2 BASOPHIL # (test code = BA#) 0.06 K/mm3 0.0-0.2 NUCLEATED RBC # (test code = NRBC#) 0.00 K/mm3 0.0-0.1 - XR CHEST [id number] 21:09:00 Patient Name: PRIYANKA EVANGELISTA Unit No: [id number] EXAMS: CPT CODE: [id number] XR CHEST 1V [id number] Location of dictation: B2 Portable chest one [...] Anh Beard (RT) Transcrpt Date/Tm/Trnsp: 08/25/2018 (2108) [facility] Orig Print D/T: S: 08/25/2018 (2112) [facility] NAME: PRIYANKA EVANGELISTA [id number] PHYS: [place] [address] : 1965 AGE: 53 SEX: M LOC: KATHY PHONE #: [phone] EXAM DATE: 08/25/2018 STATUS: PRE ER FAX #: [phone] RADIOLOGY NO: PAGE 1 Signed ReportGLUCOSE BEDSIDE [id number] 20:44:00 Test Item Value Reference Range Comments GLUCOSE BEDSIDE TESTING (test code = > 600 MG/DL 60-99 Notified Nurse~ GLUBED) XR Ribs w/ PA Chest [id number] 01:15:17Patient: PRIYANKA EVANGELISTA Date/Time07/20/2018 00:30 CDTReason for ExamInjuryReportLOCATION: [id number]: 53-year-old male who presents with rib pain.COMMENT:A [...] the right or left rib cage.IMPRESSION:Unremarkable radiographic exam ination of the chest, and right and left rib cage. Final Dictated by: MD Salguero RobertLDictdella DT/TM: 07/20/2018 1:13 amSigned by: MD Salguero Robert LSigned (Electronic Signature): 07/20/2018 1:15 amGLUCOSE BEDSIDE [id number] 16:12:00 Test Item Value Reference Range Comments GLUCOSE BEDSIDE TESTING (test code = GLUBED) 271 MG/DL 60- 99 [id number] 14:56:00 Test Item Value Reference Range Comments ALCOHOL (test code = ALC) 296.0 MG/DL <10 CALLED TO FANTASMA& READBACK ON 06/10/18 AT 1456 BY Romina Valdes HEPATIC FUNCTION [id number] 14:54:00 Test Item Value Reference Range Comments TOTAL PROTEIN (test code = PROT) 8.9 G/DL 6.2-7.6 ALBUMIN (test code = ALB) 5.2 G/DL 3.5-5.0 BILIRUBIN TOTAL (test code = BILT) 0.7 MG/DL 0.2-1.3 BILIRUBIN DIRECT (test code = BILD) 0.0 MG/DL 0.0-0.3 SGOT/AST (test code = AST) 48 UNITS/L 17-59 SGPT/ALT (test code = ALT) 39 UNITS/L 21-72 ALKALINE PHOSPHATASE (test code = ALKP) 317 UNITS/L 38-126 DRUGS OF ABUSE SCREEN [id number] 14:16:00 Test Item Value Reference Range Comments UR COCAINE (test code = COCAU) NEGATIVE NEGATIVE C ut off Value: 300 ng/mL UR CANNABINOIDS (THC) (test code = NEGATIVE NEGATIVE Cut off Value: 50 ng/mL CANU) UR AMPHETAMINE (test code = AMPHU) NEGATIVE NEGATIVE Cut off Value: 1000 ng/mL UR BARBITURATE QUAL (test code = NEGATIVE NEGATIVE Cut off Value: 200 ng/mL BARBQLU) UR BENZODIAZEPINE (test code = NEGATIVE NEGATIVE C ut off Value: 200 ng/mL BENZU) UR OPIATES QUAL (test code = NEGATIVE NEGATIVE Cut off Value: 300 ng/mL OPIAQLU) UR PHENCYCLIDINE (PCP) (test code NEGATIVE NEGATIVE Cut off Value: 25 ng/mL = PHENCU) BASIC METABOLIC [id number] 14:05:00 Test Item Value Reference Range Comments SODIUM (test code = NA) 134 MMOL/L 137-145 POTASSIUM (test code = K) 4.8 MMOL/L 3.5-5.1 CHLORIDE (test code = CL) 93 MMOL/L 98-107 CARBON DIOXIDE (test code = 24 MMOL/L 22-30 CO2) ANION GAP (test code = GAP) 22 MMOL/L 14-24 GLUCOSE (test code = GLU) 426 MG/DL 74-106 CALLED TO Yohan BROWNE& READBACK ON 05/28 07/16 AT 1405 BY Justin Love BLOOD UREA NITROGEN (test code 15 MG/DL 9-20 = BUN) GLOMERULAR FILTRATION RATE > 60 Repor ting units: ml/min/1.73 (test code = GFR) m2 (Modified MDRD Formula)Referenc e Range: > or = 60 ml/min/1 .73 m2 CREATININE (test code = CREAT) 0.70 MG/DL 0.66-1.25 CALCIUM (test code = CA) 9.5 MG/DL 8.4-10.2 URINALYSIS [id number] 14:00:00 Test Item Value Reference Range Comments UA COLOR (test code = COLU) YELLOW YELLOW UA APPEARANCE (test code = APPU) CLEAR CLEAR UA GLUCOSE DIPSTICK (test code = 1000 MG/DL NORMAL DGLUU) UA BILIRUBIN DIPSTICK (test code NEGATIVE MG/DL NEGATIVE = BILU) UA KETONE DIPSTICK (test code = NEGATIVE MG/DL NEGATIVE KETU) UA SPECIFIC GRAVITY (test code = 1.005 1.003-1.030 SGU) UA BLOOD DIPSTICK (test code = NEGATIVE Ben/mm3 NEGATIVE HAILEE) UA PH DIPSTICK (test code = MARLYN) 5.0 5.0-9.0 UA PROTEIN DIPSTICK (test code = NEGATIVE MG/DL NEGATIVE PROU) UA UROBILINIOGEN DIPSTICK (test NORMAL MG/DL NORMAL code = URO) UA NITRITE DIPSTICK (test code = NEGATIVE NEGATIVE LILA) UA LEUKOCYTE ESTERASE DIPSTICK NEGATIVE /mm3 NEGATIVE (test code = LEUU) UA CULTURE NEEDED? (test code = NEGATIVE, NO CULTURE Culture Chk UACULT) Criteria URINALYSIS [id number] 13:59:00 Test Item Value Reference Range Comments UA COLOR (test code = COLU) YELLOW YELLOW UA APPEARANCE (test code = APPU) CLEAR CLEAR UA GLUCOSE DIPSTICK (test code = DGLUU) 1000 MG/DL NORMAL UA BILIRUBIN DIPSTICK (test code = BILU) NEGATIVE MG/DL NEGATIV E UA KETONE DIPSTICK (test code = KETU) NEGATIVE MG/DL NEGATIVE UA SPECIFIC GRAVITY (test code = SGU) 1.005 1.003-1.03 0 UA BLOOD DIPSTICK (test code = HAILEE) NEGATIVE Ben/mm3 NEGATIVE UA PH DIPSTICK (test code = MARLYN) 5.0 5.0-9.0 UA PROTEIN DIPSTICK (test code = PROU) NEGATIVE MG/DL NEGATIVE UA UROBILINIOGEN DIPSTICK (test code = URO) NORMAL MG/DL NORM AL UA NITRITE DIPSTICK (test code = LILA) NEGATIVE NEGATIVE UA LEUKOCYTE ESTERASE DIPSTICK (test code = NEGATIVE /mm3 NEGA TIVE LEUU) UA CULTURE NEEDED? (test code = UACULT) Criteria Culture Chk PROTHROMBIN [id number] 13:41:00 Test Item Value Reference Range Comments PROTHROMBIN TIME PATIENT (test 11.1 SECONDS 9.6-11.6 code = PTP) INTERNATIONAL NORMAL RATIO 1.1 0.8-1.1 The I NR is to be used only (test code = INR) for monitoring oral anticoagulantthe rapy. INDICATION INR VALUE 1. Prophylaxis, luiza p venous thrombosis, i ncluding high risk surger y. 2.0 - 3 .0 2. Prophylaxis, luiza p venous thrombosis, h ip surgery, treatme nt for deep venous t hrombosis or pulmonary pre vention of systemic embo lism in patients with valvular heart disease, a trial fibrillation, tissue heart valve, or acute myocardial in farction. 2.0 - 3.0 3 . Mechanical prost hesis heart valves, recurrent systemic embolis m. 3.0 - 4. 5 CBC W/AUTO [id number] 13:30:00 Test Item Value Reference Range Comments WHITE BLOOD CELL (test code = WBC) 8.6 K/MM3 3.8-9.8 RED BLOOD CELL (test code = RBC) 3.33 M/MM3 3.95-5.67 HEMOGLOBIN (test code = HGB) 10.2 G/DL 12.4-16.7 HEMATOCRIT (test code = HCT) 29.9 % 35.9-49.5 MEAN CELL VOLUME (test code = MCV) 90 fL 81.7-96.1 MEAN CELL HGB (test code = MCH) 30.6 pg 27.6-33.2 MEAN CELL HGB CONCETRATION (test code = MCHC) 34.1 % 32 .9-35.5 RED CELL DISTRIBUTION WIDTH (test code = RDW) 15.0 % 12 .1-15.2 PLATELET COUNT (test code = PLT) 277 K/MM3 129-368 MEAN PLATELET VOLUME (test code = MPV) 9.0 fl 7.4-10.4 NEUTROPHIL % (test code = NT%) 65.2 % 43-75 IMMATURE GRANULOCYTE % (test code = IG%) 0.8 % 0.0-2.0 LYMPHOCYTE % (test code = LY%) 25.1 % 14-44 MONOCYTE % (test code = MO%) 7.8 % 4-13 EOSINOPHIL % (test code = EO%) 0.1 % 0-6 BASOPHIL % (test code = BA%) 1.0 % 0-2 NUCLEATED RBC % (test code = NRBC%) 0.0 % 0-1.0 NEUTROPHIL # (test code = NT#) 5.62 K/mm3 2.0-7.6 IMMATURE GRANULOCYTE # (test code = IG#) 0.07 x10 3/uL 0-0.03 LYMPHOCYTE # (test code = LY#) 2.16 K/mm3 1.0-3.8 MONOCYTE # (test code = MO#) 0.67 K/mm3 0.1-0.8 EOSINOPHIL # (test code = EO#) 0.01 K/mm3 0.0-0.2 BASOPHIL # (test code = BA#) 0.09 K/mm3 0.0-0.2 NUCLEATED RBC # (test code = NRBC#) 0.00 K/mm3 0.0-0.1 GLUCOSE BEDSIDE [id number] 13:01:00 Test Item Value Reference Range Comments GLUCOSE BEDSIDE TESTING (test code = 427 MG/DL 60-99 Notified Nurse~ GLUBED) CHEMISTRY 8 [id number] 13:00:00 Test Item Value Reference Range Comments IONIZED CALCIUM (test code = MMOL/L 1.12-1.24 CAIABG) ISTAT-TCO2 VENOUS (test code = MMOL/L 23-32 TCO2VP) ISTAT-SODIUM (test code = NAP) MMOL/L 137-144 ISTAT-POTASSIUM (test code = MMOL/L 3.1-4.8 KP) ISTAT-CHLORIDE (test code = MMOL/L 97-108 CLP) ISTAT-GLUCOSE (test code = MG/DL 60-99 GLUP) ISTAT-BUN (test code = BUNP) MG/DL 9-21 BEDSIDE CREATININE (test code = MG/DL 0.6-1.4 CREATBED) GLOMERULAR FILTRATION RATE POC 70 56-130 R eporting units: ml/min/1.73 (test code = GFRBED) m2 (Modifi ed MDRD Formula)Referenc e Range: > or = 60 ml/min/1.73 m2 CHEMISTRY 8 [id number] 13:00:00 Test Item Value Reference Range Comments IONIZED CALCIUM (test code = 1.05 MMOL/L 1.12-1.24 CAIABG) ISTAT-TCO2 VENOUS (test code 23 MMOL/L 23-32 = TCO2VP) ISTAT-SODIUM (test code = 132 MMOL/L 137-144 NAP) ISTAT-POTASSIUM (test code = 4.6 MMOL/L 3.1-4.8 KP) ISTAT-CHLORIDE (test code = 90 MMOL/L 97-108 CLP) ISTAT-GLUCOSE (test code = 426 MG/DL 60-99 GLUP) ISTAT-BUN (test code = BUNP) 13 MG/DL 9-21 BEDSIDE CREATININE (test code 1.1 MG/DL 0.6-1.4 = CREATBED) GLOMERULAR FILTRATION RATE 70 56-130 Repor ting units: ml/min/1.73 POC (test code = GFRBED) m2 (Mo dified MDRD Formula)Referenc e Range: > or = 60 ml/min/1 .73 m2 BASIC METABOLIC [id number] 11:41:00 Test Item Value Reference Range Comments SODIUM (test code = NA) 142 MMOL/L 137-145 POTASSIUM (test code = K) 4.0 MMOL/L 3.5-5.1 CHLORIDE (test code = CL) 109 MMOL/L 98-107 CARBON DIOXIDE (test code = 20 MMOL/L 22-30 CO2) GLUCOSE (test code = GLU) 294 MG/DL 74-106 BLOOD UREA NITROGEN (test code 13 MG/DL 9-20 = BUN) GLOMERULAR FILTRATION RATE > 60 Repor ting units: ml/min/1.73 (test code = GFR) m2 (Modified MDRD Formula)Referenc e Range: > or = 60 ml/min/1 .73 m2 CREATININE (test code = CREAT) 0.90 MG/DL 0.66-1.25 CALCIUM (test code = CA) 8.2 MG/DL 8.4-10.2 CBC W/AUTO [id number] 11:37:00 Test Item Value Reference Range Comments WHITE BLOOD CELL (test code = WBC) 7.2 K/MM3 3.8-9.8 RED BLOOD CELL (test code = RBC) 3.15 M/MM3 3.95-5.67 HEMOGLOBIN (test code = HGB) 9.6 G/DL 12.4-16.7 HEMATOCRIT (test code = HCT) 28.9 % 35.9-49.5 MEAN CELL VOLUME (test code = MCV) 92 fL 81.7-96.1 MEAN CELL HGB (test code = MCH) 30.5 pg 27.6-33.2 MEAN CELL HGB CONCETRATION (test code = MCHC) 33.2 % 32 .9-35.5 RED CELL DISTRIBUTION WIDTH (test code = RDW) 14.6 % 12 .1-15.2 PLATELET COUNT (test code = PLT) 278 K/MM3 129-368 MEAN PLATELET VOLUME (test code = MPV) 9.3 fl 7.4-10.4 NEUTROPHIL % (test code = NT%) 59.6 % 43-75 IMMATURE GRANULOCYTE % (test code = IG%) 1.4 % 0.0-2.0 LYMPHOCYTE % (test code = LY%) 29.6 % 14-44 MONOCYTE % (test code = MO%) 8.0 % 4-13 EOSINOPHIL % (test code = EO%) 0.4 % 0-6 BASOPHIL % (test code = BA%) 1.0 % 0-2 NUCLEATED RBC % (test code = NRBC%) 0.0 % 0-1.0 NEUTROPHIL # (test code = NT#) 4.30 K/mm3 2.0-7.6 IMMATURE GRANULOCYTE # (test code = IG#) 0.10 x10 3/uL 0-0.03 LYMPHOCYTE # (test code = LY#) 2.14 K/mm3 1.0-3.8 MONOCYTE # (test code = MO#) 0.58 K/mm3 0.1-0.8 EOSINOPHIL # (test code = EO#) 0.03 K/mm3 0.0-0.2 BASOPHIL # (test code = BA#) 0.07 K/mm3 0.0-0.2 NUCLEATED RBC # (test code = NRBC#) 0.00 K/mm3 0.0-0.1 [id number] 11:00:00 Test Item Value Reference Range Comments ALCOHOL (test code = ALC) 323.0 MG/DL <10 CALLED TO BERTHA.T& READBACK ON 06/08/18 AT 1100 BY Romina Valdes - XR HIP W/PEL UNI 2+V [id number] 09:57:00 Patient Name: PRIYANKA EVANGELISTA Unit No: [id number] EXAMS: CPT CODE: [id number] XR HIP W/PEL UNI 2+[place] [id number] Right hip History: pain Comparison: May 31, [...] Carter Chatman, RT(R) Transcrpt Date/Tm/Trnsp: 06/08/2018 (0957) t.ANGLER.[facility] OrigPrint D/T: S: 06/08/2018 (1001) [facility] NAME: PRIYANKA EVANGELISTA [id number] [address] PHYS: [place] [address] : 1965 AGE: 53 SEX: M LOC: UNK PHONE #: [phone] EXAM DATE: 06/08/2018 STATUS: DEP ER FAX #: [phone] RADIOLOGY NO: PAGE 1 Signed Report- XR HIP W/PEL UNI 2+V [id number] 09:57:00 Patient Name: PRIYANKA EVANGELISTA Unit No: [id number] EXAMS: CPT CODE: [id number] XR HIP W/PEL UNI 2+[place] [id number] Right hip History: pain Comparison: May 31, [...] MD CC: Evan Alfonso MD Technologist: Carter Chatman RT(R) Transcrpt Date/Tm/Trnsp: 06/08/2018 (0957) t.SDR.PMT OrigPrint D/T: S: 06/08/2018 (1001) [facility] NAME: PRIYANKA EVANGELISTA [id number] [address] PHYS: [place] [address] : 1965 AGE: 53 SEX: M LOC: KATHY PHONE #: [phone] EXAM DATE: 06/08/2018 STATUS: REG ER FAX #: [phone] RADIOLOGY NO: PAGE 1 Signed Report GLUCOSE BEDSIDE [id number] 12:55:00 Test Item Value Reference Range Comments GLUCOSE BEDSIDE TESTING (test code = GLUBED) 160 MG/DL 60- 99 GLUCOSE BEDSIDE [id number] 10:49:00 Test Item Value Reference Range Comments GLUCOSE BEDSIDE TESTING (test code = GLUBED) 186 MG/DL 60- 99 BASIC METABOLIC [id number] 06:15:00 Test Item Value Reference Range Comments SODIUM (test code = NA) 124 MMOL/L 137-145 POTASSIUM (test code = K) 4.3 MMOL/L 3.5-5.1 CHLORIDE (test code = CL) 89 MMOL/L 98-107 CARBON DIOXIDE (test code = 25 MMOL/L 22-30 CO2) GLUCOSE (test code = GLU) 184 MG/DL 74-106 BLOOD UREA NITROGEN (test code 14 MG/DL 9-20 = BUN) GLOMERULAR FILTRATION RATE > 60 Repor ting units: ml/min/1.73 (test code = GFR) m2 (Modified MDRD Formula)Referenc e Range: > or = 60 ml/min/1 .73 m2 CREATININE (test code = CREAT) 0.60 MG/DL 0.66-1.25 CALCIUM (test code = CA) 8.8 MG/DL 8.4-10.2 CBC W/AUTO [id number] 05:54:00 Test Item Value Reference Range Comments WHITE BLOOD CELL (test code = WBC) 4.9 K/MM3 3.8-9.8 RED BLOOD CELL (test code = RBC) 3.00 M/MM3 3.95-5.67 HEMOGLOBIN (test code = HGB) 9.2 G/DL 12.4-16.7 HEMATOCRIT (test code = HCT) 27.2 % 35.9-49.5 MEAN CELL VOLUME (test code = MCV) 91 fL 81.7-96.1 MEAN CELL HGB (test code = MCH) 30.7 pg 27.6-33.2 MEAN CELL HGB CONCETRATION (test code = MCHC) 33.8 % 32 .9-35.5 RED CELL DISTRIBUTION WIDTH (test code = RDW) 14.2 % 12 .1-15.2 PLATELET COUNT (test code = PLT) 125 K/MM3 129-368 MEAN PLATELET VOLUME (test code = MPV) 9.6 fl 7.4-10.4 NEUTROPHIL % (test code = NT%) 65.6 % 43-75 IMMATURE GRANULOCYTE % (test code = IG%) 0.6 % 0.0-2.0 LYMPHOCYTE % (test code = LY%) 21.1 % 14-44 MONOCYTE % (test code = MO%) 11.3 % 4-13 EOSINOPHIL % (test code = EO%) 1.0 % 0-6 BASOPHIL % (test code = BA%) 0.4 % 0-2 NUCLEATED RBC % (test code = NRBC%) 0.0 % 0-1.0 NEUTROPHIL # (test code = NT#) 3.19 K/mm3 2.0-7.6 IMMATURE GRANULOCYTE # (test code = IG#) 0.03 x10 3/uL 0-0.03 LYMPHOCYTE # (test code = LY#) 1.03 K/mm3 1.0-3.8 MONOCYTE # (test code = MO#) 0.55 K/mm3 0.1-0.8 EOSINOPHIL # (test code = EO#) 0.05 K/mm3 0.0-0.2 BASOPHIL # (test code = BA#) 0.02 K/mm3 0.0-0.2 NUCLEATED RBC # (test code = NRBC#) 0.00 K/mm3 0.0-0.1 GLUCOSE BEDSIDE [id number] 21:08:00 Test Item Value Reference Range Comments GLUCOSE BEDSIDE TESTING (test code = GLUBED) 198 MG/DL 60- 99 GLUCOSE BEDSIDE [id number] 18:21:00 Test Item Value Reference Range Comments GLUCOSE BEDSIDE TESTING (test code = GLUBED) 217 MG/DL 60- 99 [id number] 13:23:00 Test Item Value Reference Range Comments MAGNESIUM (test code = MAG) 1.6 MG/DL 1.6-2.3 GLUCOSE BEDSIDE [id number] 12:58:00 Test Item Value Reference Range Comments GLUCOSE BEDSIDE TESTING (test code = GLUBED) 334 MG/DL 60- 99 GLUCOSE BEDSIDE [id number] 12:40:00 Test Item Value Reference Range Comments GLUCOSE BEDSIDE TESTING (test code = GLUBED) 193 MG/DL 60- 99 GLUCOSE BEDSIDE [id number] 10:59:00 Test Item Value Reference Range Comments GLUCOSE BEDSIDE TESTING (test code = GLUBED) 173 MG/DL 60- 99 BASIC METABOLIC [id number] 06:55:00 Test Item Value Reference Range Comments SODIUM (test code = NA) 122 MMOL/L 137-145 POTASSIUM (test code = K) 4.3 MMOL/L 3.5-5.1 CHLORIDE (test code = CL) 86 MMOL/L 98-107 CARBON DIOXIDE (test code = 27 MMOL/L 22-30 CO2) ANION GAP (test code = GAP) 13 MMOL/L 14-24 GLUCOSE (test code = GLU) 198 MG/DL 74-106 BLOOD UREA NITROGEN (test code 13 MG/DL 9-20 = BUN) GLOMERULAR FILTRATION RATE > 60 Repor ting units: ml/min/1.73 (test code = GFR) m2 (Modified MDRD Formula)Referenc e Range: > or = 60 ml/min/1 .73 m2 CREATININE (test code = CREAT) 0.70 MG/DL 0.66-1.25 CALCIUM (test code = CA) 8.8 MG/DL 8.4-10.2 GLUCOSE BEDSIDE [id number] 06:37:00 Test Item Value Reference Range Comments GLUCOSE BEDSIDE TESTING (test code = GLUBED) 220 MG/DL 60- 99 CBC W/AUTO [id number] 06:17:00 Test Item Value Reference Range Comments WHITE BLOOD CELL (test code = WBC) 6.0 K/MM3 3.8-9.8 RED BLOOD CELL (test code = RBC) 3.07 M/MM3 3.95-5.67 HEMOGLOBIN (test code = HGB) 9.4 G/DL 12.4-16.7 HEMATOCRIT (test code = HCT) 27.9 % 35.9-49.5 MEAN CELL VOLUME (test code = MCV) 91 fL 81.7-96.1 MEAN CELL HGB (test code = MCH) 30.6 pg 27.6-33.2 MEAN CELL HGB CONCETRATION (test code = MCHC) 33.7 % 32 .9-35.5 RED CELL DISTRIBUTION WIDTH (test code = RDW) 14.2 % 12 .1-15.2 PLATELET COUNT (test code = PLT) 134 K/MM3 129-368 MEAN PLATELET VOLUME (test code = MPV) 9.9 fl 7.4-10.4 NEUTROPHIL % (test code = NT%) 69.4 % 43-75 IMMATURE GRANULOCYTE % (test code = IG%) 0.7 % 0.0-2.0 LYMPHOCYTE % (test code = LY%) 18.6 % 14-44 MONOCYTE % (test code = MO%) 10.1 % 4-13 EOSINOPHIL % (test code = EO%) 0.7 % 0-6 BASOPHIL % (test code = BA%) 0.5 % 0-2 NUCLEATED RBC % (test code = NRBC%) 0.0 % 0-1.0 NEUTROPHIL # (test code = NT#) 4.15 K/mm3 2.0-7.6 IMMATURE GRANULOCYTE # (test code = IG#) 0.04 x10 3/uL 0-0.03 LYMPHOCYTE # (test code = LY#) 1.11 K/mm3 1.0-3.8 MONOCYTE # (test code = MO#) 0.60 K/mm3 0.1-0.8 EOSINOPHIL # (test code = EO#) 0.04 K/mm3 0.0-0.2 BASOPHIL # (test code = BA#) 0.03 K/mm3 0.0-0.2 NUCLEATED RBC # (test code = NRBC#) 0.00 K/mm3 0.0-0.1 [id number] 21:42:00 Test Item Value Reference Range Comments MAGNESIUM (test code = MAG) 1.9 MG/DL 1.6-2.3 GLUCOSE BEDSIDE [id number] 21:08:00 Test Item Value Reference Range Comments GLUCOSE BEDSIDE TESTING (test code = GLUBED) 101 MG/DL 60- 99 GLUCOSE BEDSIDE [id number] 15:54:00 Test Item Value Reference Range Comments GLUCOSE BEDSIDE TESTING (test code = 261 MG/DL 60-99 Notified Nurse~ GLUBED) GLUCOSE BEDSIDE [id number] 11:18:00 Test Item Value Reference Range Comments GLUCOSE BEDSIDE TESTING (test code = 321 MG/DL 60-99 Notified Nurse~ GLUBED) BASIC METABOLIC [id number] 08:23:00 Test Item Value Reference Range Comments SODIUM (test code = NA) 121 MMOL/L 137-145 POTASSIUM (test code = K) 5.0 MMOL/L 3.5-5.1 CHLORIDE (test code = CL) 84 MMOL/L 98-107 CARBON DIOXIDE (test code = 27 MMOL/L 22-30 CO2) ANION GAP (test code = GAP) 15 MMOL/L 14-24 GLUCOSE (test code = GLU) 344 MG/DL 74-106 CALLED TO [facility].Damaso & READBACK ON 06/01/18 AT 0 822 BY Romina Valdes BLOOD UREA NITROGEN (test code 14 MG/DL 9-20 = BUN) GLOMERULAR FILTRATION RATE > 60 Repor ting units: ml/min/1.73 (test code = GFR) m2 (Modified MDRD Formula)Referenc e Range: > or = 60 ml/min/1 .73 m2 CREATININE (test code = CREAT) 0.80 MG/DL 0.66-1.25 CALCIUM (test code = CA) 8.9 MG/DL 8.4-10.2 CBC W/AUTO [id number] 07:18:00 Test Item Value Reference Range Comments WHITE BLOOD CELL (test code = WBC) 6.5 K/MM3 3.8-9.8 RED BLOOD CELL (test code = RBC) 3.37 M/MM3 3.95-5.67 HEMOGLOBIN (test code = HGB) 10.3 G/DL 12.4-16.7 HEMATOCRIT (test code = HCT) 30.4 % 35.9-49.5 MEAN CELL VOLUME (test code = MCV) 90 fL 81.7-96.1 MEAN CELL HGB (test code = MCH) 30.6 pg 27.6-33.2 MEAN CELL HGB CONCETRATION (test code = MCHC) 33.9 % 32 .9-35.5 RED CELL DISTRIBUTION WIDTH (test code = RDW) 14.1 % 12 .1-15.2 PLATELET COUNT (test code = PLT) 155 K/MM3 129-368 MEAN PLATELET VOLUME (test code = MPV) 9.6 fl 7.4-10.4 NEUTROPHIL % (test code = NT%) 70.8 % 43-75 IMMATURE GRANULOCYTE % (test code = IG%) 0.3 % 0.0-2.0 LYMPHOCYTE % (test code = LY%) 19.6 % 14-44 MONOCYTE % (test code = MO%) 8.6 % 4-13 EOSINOPHIL % (test code = EO%) 0.2 % 0-6 BASOPHIL % (test code = BA%) 0.5 % 0-2 NUCLEATED RBC % (test code = NRBC%) 0.0 % 0-1.0 NEUTROPHIL # (test code = NT#) 4.59 K/mm3 2.0-7.6 IMMATURE GRANULOCYTE # (test code = IG#) 0.02 x10 3/uL 0-0.03 LYMPHOCYTE # (test code = LY#) 1.27 K/mm3 1.0-3.8 MONOCYTE # (test code = MO#) 0.56 K/mm3 0.1-0.8 EOSINOPHIL # (test code = EO#) 0.01 K/mm3 0.0-0.2 BASOPHIL # (test code = BA#) 0.03 K/mm3 0.0-0.2 NUCLEATED RBC # (test code = NRBC#) 0.00 K/mm3 0.0-0.1 GLUCOSE BEDSIDE [id number] 06:36:00 Test Item Value Reference Range Comments GLUCOSE BEDSIDE TESTING (test code = GLUBED) 296 MG/DL 60- 99 [id number] 22:45:00 Test Item Value Reference Range Comments MAGNESIUM (test code = MAG) 1.2 MG/DL 1.6-2.3 GLUCOSE BEDSIDE [id number] 19:56:00 Test Item Value Reference Range Comments GLUCOSE BEDSIDE TESTING (test code = 316 MG/DL 60-99 Notified Nurse~ GLUBED) - XR HIP W/PEL UNI 2+V [id number] 13:13:00 Patient Name: PRIYANKA EVANGELISTA Unit No: [id number] EXAMS: CPT CODE: [id number] XR HIP W/PEL UNI 2+[place] [address] Right hip History: RIGHT FEMUR FRACTURE Comparison: May 30, 2018 Location: R16 13 views of the right hip from the C-arm are submitted. IMPRESSION: The images demonstrate placement of orthopedic hardware traversing a previously identified fracture of the proximal rig ht femur. There is approximation of fracture fragments. at 1313 Reported and signed by: Nicholas Cotter MD CC: Clarissa Reilly DO Technologist: Rohan Machado RT(R) Transcrpt Date/Tm/Trnsp: 05/31/2018 (1313) t.[email or web address].PMT Orig Print D/T: S: 05/31/2018 (1316) [facility] NAME: PRIYANKA EVANGELISTA [id number] PHYS: [place] [address] : 1965 AGE: 53 SEX: M LOC: [employer] PHONE #: [phone] EXAM DATE: 05/31/2018 STATUS: DIS IN FAX #: [phone] RADIOLOGY NO: PAGE 1 Signed Report- XR HIP W/PEL UNI 2+V RT 2018-05-31 13:13:00 Patient Name: PRIYANKA EVANGELISTA Unit No: [id number] EXAMS: CPT CODE: [id number] XR HIP W/PEL UNI 2+[place] [address] Right hip History: RIGHT FEMUR FRACTURE Comparison: [...] DO Technologist: RT Shalom(R) Transcrpt Date/Tm/Trnsp: 05/31/2018 (6297) t.SDR.PMT Orig Print D/T: S: 05/31/2018 (5101) [facility] NAME: PRIYANKA EVANGELISTA PHYS: [place] [address] : 1965 AGE: 53 SEX: M LOC: Z.534 A PHONE #: [phone] EXAM DATE: 05/31/2018 STATUS: ADM IN FAX #: [phone] RADIOLOGY NO: PAGE 1 Signed [id number] 12:56:00 Test Item Value Reference Range Comments HEMOGLOBIN (test code = HGB) 11.1 G/DL 12.4-16.7 Specimen comments: Patient in PACUComments to Mechanical Spreader Operator: Patient in PACU [id number] 12:56:00 Test Item Value Reference Range Comments HEMATOCRIT (test code = HCT) 34.1 % 35.9-49.5 Specimen comments: Patient in PACUComments to Mechanical Spreader Operator: Patient in PACU GLUCOSE BEDSIDE [id number] 09:21:00 Test Item Value Reference Range Comments GLUCOSE BEDSIDE TESTING (test code = GLUBED) 191 MG/DL 60- 99 LIPID PROFILE (CORONARY RISK)2018-05-31 07:50:00 Test Item Value Reference Range Comments TRIGLYCERIDES (test code = 93 MG/DL TRIGL YCERIDES REFERENCE TRIG) RANGE:Normal: <1 50 mg/dLBorderline High: 150-199 mg/dLHigh: 200-4 99 mg/dLVery High: >=500 mg/d L CHOLESTEROL (test code = CHOL) 191 MG/DL <200 HDL CHOLESTEROL (test code = 58 MG/DL 40-59 HDL) LIPOPROTEIN LDL (test code = 136 MG/DL 0-99 LDL) OPTIMAL......... <100 mg/dLNEAR OPTIMA L/ABOVE OPTIMAL......... 100-129 mg/dL BORDER LINE HIGH.........130 -159 mg/dL HIGH.........160 -189 mg/dL JOSUÉ Y HIGH.........>/= 190 mg/dL [id number] 07:50:00 Test Item Value Reference Range Comments MAGNESIUM (test code = MAG) 1.3 MG/DL 1.6-2.3 THYROID STIMULATING [id number] 07:50:00 Test Item Value Reference Range Comments THYROID STIMULATING HORMONE 3.190 MIU/L 0.465-4.68 Plea se be aware that bias (test code = TSH) results for TS H may occur forpatient who a re taking Biotin supplemen ts. LIPID PROFILE (CORONARY RISK)2018-05-31 07:30:00 Test Item Value Reference Range Comments TRIGLYCERIDES (test code = 93 MG/DL TRIGL YCERIDES REFERENCE TRIG) RANGE:Normal: <1 50 mg/dLBorderline High: 150-199 mg/dLHigh: 200-4 99 mg/dLVery High: >=500 mg/d L CHOLESTEROL (test code = CHOL) 191 MG/DL <200 HDL CHOLESTEROL (test code = 58 MG/DL 40-59 HDL) LIPOPROTEIN LDL (test code = 136 MG/DL 0-99 LDL) OPTIMAL......... <100 mg/dLNEAR OPTIMA L/ABOVE OPTIMAL......... 100-129 mg/dL BORDER LINE HIGH.........130 -159 mg/dL HIGH.........160 -189 mg/dL JOSUÉ Y HIGH.........>/= 190 mg/dL [id number] 07:30:00 Test Item Value Reference Range Comments MAGNESIUM (test code = MAG) 1.3 MG/DL 1.6-2.3 THYROID STIMULATING [id number] 07:30:00 Test Item Value Reference Range Comments THYROID STIMULATING HORMONE (test code = TSH) MIU/L 0. 465-4.68 LIPID PROFILE (CORONARY RISK)2018-05-31 07:19:00 Test Item Value Reference Range Comments TRIGLYCERIDES (test code = 93 MG/DL TRIGL YCERIDES REFERENCE TRIG) RANGE:Normal: <1 50 mg/dLBorderline High: 150-199 mg/dLHigh: 200-4 99 mg/dLVery High: >=500 mg/d L CHOLESTEROL (test code = CHOL) 191 MG/DL <200 HDL CHOLESTEROL (test code = 58 MG/DL 40-59 HDL) LIPOPROTEIN LDL (test code = MG/DL 0-99 LDL) [id number] 07:19:00 Test Item Value Reference Range Comments MAGNESIUM (test code = MAG) 1.3 MG/DL 1.6-2.3 THYROID STIMULATING [id number] 07:19:00 Test Item Value Reference Range Comments THYROID STIMULATING HORMONE (test code = TSH) MIU/L 0. 465-4.68 GLYCOSYLATED HEMOGLOBIN [id number] 22:01:00 Test Item Value Reference Range Comments GLYCOSYLATED HEMOGLOBIN 10.7 % 4.8-5.9 Any cond ition that shortens (HA1C) (test code = GLYHGB) eryt hocyte survival or decreasesmean er ythrocyte age (e.g., recovery from acute blood loss,hemolytic a nemia) will falsely lower HG BA1c resultsregardles s of the method used. HGBA1c re sults from patientswith HbS S, HbCC, and HbSc must be int erpreted with cautiongiven the pathological processes, inclu ding anemia,increased red cell turnover, transf usion requirements, th atadversely impact HGBA1c as a marker of long-term glycem iccontrol. Alternative form s of testing such as fructosa mineshould be considered for t hese patients. MEAN BLOOD GLUCOSE (test 260 MG/DL 70-110 code = MBG) COMPREHENSIVE METABOLIC [id number] 20:45:00 Test Item Value Reference Range Comments SODIUM (test code = NA) 139 MMOL/L 137-145 POTASSIUM (test code = K) 4.9 MMOL/L 3.5-5.1 CHLORIDE (test code = CL) 101 MMOL/L 98-107 CARBON DIOXIDE (test code = 24 MMOL/L 22-30 CO2) ANION GAP (test code = GAP) 19 MMOL/L 14-24 GLUCOSE (test code = GLU) 332 MG/DL 74-106 CALLED TO GERA CUMMINS CRS=448& READBACK ON 06/15 AT 5 BY Jeremías Oh BLOOD UREA NITROGEN (test code 7 MG/DL 9-20 = BUN) GLOMERULAR FILTRATION RATE > 60 Repor ting units: (test code = GFR) ml/min/1.73 m2 (Modified MDRD Formula)Ref erence Range: > or = 60 ml/min/1.73 m2 CREATININE (test code = CREAT) 0.80 MG/DL 0.66-1.25 TOTAL PROTEIN (test code = 7.6 G/DL 6.2-7.6 PROT) ALBUMIN (test code = ALB) 4.3 G/DL 3.5-5.0 CALCIUM (test code = CA) 9.6 MG/DL 8.4-10.2 BILIRUBIN TOTAL (test code = < 0.1 MG/DL 0.2-1.3 BILT) SGOT/AST (test code = AST) 31 UNITS/L 17-59 SGPT/ALT (test code = ALT) 22 UNITS/L 21-72 ALKALINE PHOSPHATASE (test 192 UNITS/L 38-126 code = ALKP) GLUCOSE BEDSIDE [id number] 16:40:00 Test Item Value Reference Range Comments GLUCOSE BEDSIDE TESTING (test code = GLUBED) 314 MG/DL 60- 99 URINALYSIS [id number] 15:07:00 Test Item Value Reference Range Comments UA COLOR (test code = COLU) YELLOW YELLOW UA APPEARANCE (test code = APPU) CLEAR CLEAR UA GLUCOSE DIPSTICK (test code = DGLUU) 1000 MG/DL NORMAL UA BILIRUBIN DIPSTICK (test code = BILU) NEGATIVE MG/DL NEGATIV E UA KETONE DIPSTICK (test code = KETU) NEGATIVE MG/DL NEGATIVE UA SPECIFIC GRAVITY (test code = SGU) 1.010 1.003-1.03 0 UA BLOOD DIPSTICK (test code = HAILEE) NEGATIVE Ben/mm3 NEGATIVE UA PH DIPSTICK (test code = MARLYN) 5.0 5.0-9.0 UA PROTEIN DIPSTICK (test code = PROU) NEGATIVE MG/DL NEGATIVE UA UROBILINIOGEN DIPSTICK (test code = URO) NORMAL MG/DL NORM AL UA NITRITE DIPSTICK (test code = LILA) NEGATIVE NEGATIVE UA LEUKOCYTE ESTERASE DIPSTICK (test code = NEGATIVE /mm3 NEGA TIVE LEUU) UA CULTURE NEEDED? (test code = UACULT) Criteria Culture Chk URINALYSIS [id number] 15:07:00 Test Item Value Reference Range Comments UA COLOR (test code = COLU) YELLOW YELLOW UA APPEARANCE (test code = APPU) CLEAR CLEAR UA GLUCOSE DIPSTICK (test code = 1000 MG/DL NORMAL DGLUU) UA BILIRUBIN DIPSTICK (test code NEGATIVE MG/DL NEGATIVE = BILU) UA KETONE DIPSTICK (test code = NEGATIVE MG/DL NEGATIVE KETU) UA SPECIFIC GRAVITY (test code = 1.010 1.003-1.030 SGU) UA BLOOD DIPSTICK (test code = NEGATIVE Ben/mm3 NEGATIVE HAILEE) UA PH DIPSTICK (test code = MARLYN) 5.0 5.0-9.0 UA PROTEIN DIPSTICK (test code = NEGATIVE MG/DL NEGATIVE PROU) UA UROBILINIOGEN DIPSTICK (test NORMAL MG/DL NORMAL code = URO) UA NITRITE DIPSTICK (test code = NEGATIVE NEGATIVE LILA) UA LEUKOCYTE ESTERASE DIPSTICK NEGATIVE /mm3 NEGATIVE (test code = LEUU) UA CULTURE NEEDED? (test code = NEGATIVE, NO CULTURE Culture Chk UACULT) Criteria GLUCOSE BEDSIDE [id number] 12:16:00 Test Item Value Reference Range Comments GLUCOSE BEDSIDE TESTING (test code = GLUBED) 368 MG/DL 60- 99 COMPREHENSIVE METABOLIC [id number] 11:34:00 Test Item Value Reference Range Comments SODIUM (test code = NA) 140 MMOL/L 137-145 POTASSIUM (test code = K) 5.1 MMOL/L 3.5-5.1 CHLORIDE (test code = CL) 99 MMOL/L 98-107 CARBON DIOXIDE (test code = 27 MMOL/L 22-30 CO2) ANION GAP (test code = GAP) 19 MMOL/L 14-24 GLUCOSE (test code = GLU) 487 MG/DL 74-[address] ALFONSO & READBACK ON 06/15 AT 1127 Elizabeth Madrigal BLOOD UREA NITROGEN (test code 6 MG/DL 9-20 = BUN) GLOMERULAR FILTRATION RATE > 60 Repor ting units: (test code = GFR) ml/min/1.73 m2 (Modified MDRD Formula)Ref erence Range: > or = 60 ml/min/1.73 m2 CREATININE (test code = CREAT) 0.80 MG/DL 0.66-1.25 TOTAL PROTEIN (test code = 8.2 G/DL 6.2-7.6 PROT) ALBUMIN (test code = ALB) 4.7 G/DL 3.5-5.0 CALCIUM (test code = CA) 9.9 MG/DL 8.4-10.2 BILIRUBIN TOTAL (test code = < 0.1 MG/DL 0.2-1.3 BILT) SGOT/AST (test code = AST) 41 UNITS/L 17-59 SGPT/ALT (test code = ALT) 28 UNITS/L 21-72 ALKALINE PHOSPHATASE (test 204 UNITS/L 38-126 code = ALKP) [id number] 11:34:00 Test Item Value Reference Range Comments ALCOHOL (test code = ALC) 348.0 MG/DL <[address] ALFONSO& READBACK ON 05/30/18 AT 1133 BY Jesus Machado PROTHROMBIN [id number] 11:11:00 Test Item Value Reference Range Comments PROTHROMBIN TIME PATIENT (test 11.3 SECONDS 9.6-11.6 code = PTP) INTERNATIONAL NORMAL RATIO 1.1 0.8-1.1 The I NR is to be used only (test code = INR) for monitoring oral anticoagulantthe rapy. INDICATION INR VALUE 1. Prophylaxis, luiza p venous thrombosis, i ncluding high risk surger y. 2.0 - 3 .0 2. Prophylaxis, luiza p venous thrombosis, h ip surgery, treatme nt for deep venous t hrombosis or pulmonary pre vention of systemic embo lism in patients with valvular heart disease, a trial fibrillation, tissue heart valve, or acute myocardial in farction. 2.0 - 3.0 3 . Mechanical prost hesis heart valves, recurrent systemic embolis m. 3.0 - 4. 5 PTT [id number] 11:11:00 Test Item Value Reference Range Comments PTT ACTIVATED (test code = APTT) 25.5 SECONDS 22.0-33.0 CBC W/AUTO [id number] 10:57:00 Test Item Value Reference Range Comments WHITE BLOOD CELL (test code = WBC) 5.5 K/MM3 3.8-9.8 RED BLOOD CELL (test code = RBC) 4.08 M/MM3 3.95-5.67 HEMOGLOBIN (test code = HGB) 12.5 G/DL 12.4-16.7 HEMATOCRIT (test code = HCT) 37.3 % 35.9-49.5 MEAN CELL VOLUME (test code = MCV) 91 fL 81.7-96.1 MEAN CELL HGB (test code = MCH) 30.6 pg 27.6-33.2 MEAN CELL HGB CONCETRATION (test code = MCHC) 33.5 % 32 .9-35.5 RED CELL DISTRIBUTION WIDTH (test code = RDW) 14.8 % 12 .1-15.2 PLATELET COUNT (test code = PLT) 238 K/MM3 129-368 MEAN PLATELET VOLUME (test code = MPV) 9.6 fl 7.4-10.4 NEUTROPHIL % (test code = NT%) 51.3 % 43-75 IMMATURE GRANULOCYTE % (test code = IG%) 1.1 % 0.0-2.0 LYMPHOCYTE % (test code = LY%) 38.6 % 14-44 MONOCYTE % (test code = MO%) 5.7 % 4-13 EOSINOPHIL % (test code = EO%) 1.5 % 0-6 BASOPHIL % (test code = BA%) 1.8 % 0-2 NUCLEATED RBC % (test code = NRBC%) 0.0 % 0-1.0 NEUTROPHIL # (test code = NT#) 2.80 K/mm3 2.0-7.6 IMMATURE GRANULOCYTE # (test code = IG#) 0.06 x10 3/uL 0-0.03 LYMPHOCYTE # (test code = LY#) 2.11 K/mm3 1.0-3.8 MONOCYTE # (test code = MO#) 0.31 K/mm3 0.1-0.8 EOSINOPHIL # (test code = EO#) 0.08 K/mm3 0.0-0.2 BASOPHIL # (test code = BA#) 0.10 K/mm3 0.0-0.2 NUCLEATED RBC # (test code = NRBC#) 0.00 K/mm3 0.0-0.1 - XR HIP W/PEL UNI 2+V [id number] 09:50:00 Patient Name: PRIYANKA EVANGELISTA Unit No: [id number] EXAMS: CPT CODE: [id number] XR HIP W/PEL UNI 2+[place] [id number] Location code: R 16 Right hip 2 [...] (0950) [id number] Orig Print D/T: S: 05/30/2018 (0953) [facility] NAME: PRIYANKA EVANGELISTA [id number] HYS: [place] [address] : 1965 AGE: 53 SEX: M LOC: UNK PHONE #: [phone] EXAM DATE: 05/30/2018 STATUS: DIS IN FAX #: [phone] RADIOLOGY NO: PAGE 1 Signed Report- XR HIP W/PEL UNI 2+V RT 2018-05-30 09:50:00 Patient Name: PRIYANKA EVANGELISTA Unit No: [id number] EXAMS: CPT CODE: [id number] XR HIP W/PEL UNI 2+[place] [id number] Location code: R 16 Right hip 2 views the: Indicat ion: R hip pain. Comparison: none Findings Degenerative changes of lower lumbar spine. Left hip intramedullary marjorie and pin. Pelvic structures intact. Sacroiliac joints and symphysis pubis intact. Right hip articulation is intact. Intertrochanteric fracture of the right hip, with mild fragment displacement. Soft tissues unremarkable. IMPRESSION: Intertrochanteric fracture right hip. at 0950 Reported and signed b y: Christiano Zapata M.D. CC: Evan Alfonso MD Technologist:Noah Rodrigues RT(R); Holger Goff (RT)(R) Transcrpt Date/Tm/Trnsp: 05/30/2018 (0950) [id number] Orig Print D/T: S: 05/30/2018 (0953) [facility] NAME: PRIYANKA EVANGELISTA Haider HYS: [place] [address] : 1965 AGE: 53 SEX: M LOC: .ERS PHONE #: [phone] EXAM DATE: 05/30/2018 STATUS: PRE ER FAX #: [phone] RADIOLOGY NO: PAGE 1 Signed Report- XR HIP W/PEL UNI 2+V LT 2016-05-16 14:25:00 Patient Name: PRIYANKA EVANGELISTA Unit No: [id number] EXAMS: CPT CODE: [id number] XR HIP W/PE[place] UNI 2+[place] [address] Fluoroscopy Left hip nailing FINDINGS: An intramed ullary nail with an intertrochanteric screw transfixes an intertrochanteric fracture. Hardware appears intact Fluoroscopy time utilized 77 seconds. Please refer to operative report for further details. at 1425 Reported and signed by: Johnson Lane M.D. CC: Adrianne Tracy MD; Lisa Narvaez Technologist: Rohan Machado RT(R); Gwen Bales RT(R) Transcrpt Date/Tm/Trnsp: 05/16/2016 (1425) [id number] Orig Print D/T:S: 05/16/2016 (1428) [facility] NAME: PRIYANKA EVANGELISTA Mathew PHYS: [place] [address] : 1965 AGE: 51 SEX: M LOC: UNK PHONE #: [phone] EXAM DATE: 05/16/2016 STATUS: UNK FAX #: [phone] RADIOLOGY NO: PAGE 1 Signed Report- XR WRIST 3+V [id number] 19:15:00 Patient Name: PRIYANKA EVANGELISTA Unit No: [id number] EXAMS: CPT CODE: [id number] XR WRIST 3+[place] [address] Location n 13 Left Wrist, 3 views History: Wristpain Comparison: None available Findings: There is a nondisplaced transverse (but slightly obliqued) fracture at the distal radial metaphysis. No definite intra-articular extension. There is surrounding soft tissue swelling. Other osseous structures atthe wrist appear intact and well aligned. Impression: Nondisplaced fracture of the distal radial metaphysis without evidence of intra-articular extension. at 191 Reported and signed by: Jacklyn Matamoros M.D. CC: Adrianne Tracy MD Technologist: Gwen Bales, RT(R) Transcrpt Date/Tm/Trnsp: 01/31/2016 (1914) [place] Orig Print D/T: S: 01/31/2016 (1917) [facility] NAME: PRIYANKA EVANGELISTA [id number] PHYS: [place] [address] : 1965 AGE: 50 SEX: M LOC: UNK PHONE #: [phone] EXAM DATE: 01/31/2016 STATUS: UNK FAX #: [phone] RADIOLOGY NO: PAGE 1 Signed Report
--- OUTSIDE RECORDS SUMMARY | 2019-07-07 01:45 | XMS REPORT ---
:1965 Author Organization eClinicalWorks Care Team Providers Name Role Phone Yogi Abramsh Provider Role Unavailable Allergies, Adverse Reactions, Alerts Substance Reaction Event Type N.K.D.A. Info Not Available Non Drug Allergy Problems Problem Type Condition Code Onset Dates Condition Statu s Assessment Non-compliant behavior R46.89 Activ e Assessment Insomnia, unspecified type G47.00 A ctive Assessment Type 2 diabetes mellitus with other E11.29 Active diabetic kidney complication Assessment Other chronic pain G89.29 Active Assessment Pain in left hip M25.552 Active Problem HTN, goal below 130/80 I10 Activ e Assessment Allergic rhinitis, unspecified J30.9 Active seasonality, [...] R56.9 Active Assessment Anemia, unspecified type D64.9 Act mike Problem Insomnia, unspecified type G47.00 A ctive Assessment GERD without esophagitis K21.9 Act mike Problem Chronic obstructive pulmonary J44.9 Active disease, unspecified COPD type Problem Depression with anxiety F41.8 Acti ve Problem penitentiary (current) use of insulin Z79.4 Active Problem GERD without esophagitis K21.9 Act mike Assessment HTN, goal below 130/80 I10 Activ e Assessment Chronic obstructive pulmonary J44.9 Active disease, unspecified COPD type Assessment Depression with anxiety F41.8 Acti ve Assessment Mixed hyperlipidemia E78.2 Active Assessment Type 2 diabetes mellitus with E11.42 Active diabetic polyneuropathy Assessment Proteinuria, unspecified R80.9 Act mike Assessment penitentiary (current) use of insulin Z79.4 Active Medications Medication Code Code Instructions Start End Status Dosage System Date Date Duloxetine HCl [facility] 68908152951 60 MG Oral Active TA KE 1 CAPSULE TWICE DAILY ProAir HFA [facility] 91488572000 108 (90 Base) Active 2 p uffs as MCG/ACT needed Inhalation every 6 hrs Folic Acid [facility] 52624437841 1 MG Orally Active 1 tab let Once a day One Touch NDC 0 Once twice a Active one Delica test day strips Gabapentin [facility] 66811269051 600 MG Oral Active TAKE 1 TABLET BY MOUTH THREE TIMES A DAY Fenofibrate [facility] 32335197669 160 MG Oral Active take 1 tablet Once a day by mouth ever y day with supper Lisinopril [facility] 11873399224 20 MG Oral Once Active t triston 1 tablet a day by mouth every day Levetiracetam [facility] 00428849715 1000 MG Orally Dec Active 1 tablet Once a day 2018 Atorvastatin [facility] 98310441812 20 MG Orally Dec Active 1 tablet Calcium Once a day 2018 Metformin HCl [facility] 41765931055 1000 MG Orally Active 1 tablet with a BID meal Trazodone HCl [facility] 97197227919 100 MG Orally Dec Active 1 tablet at Once a day 17, bedtime 2018 Pantoprazole [facility] 87871395952 40 MG Orally Active 1 tablet Sodium Once a day Tramadol HCl [facility] 52662980690 50 MG Orally Active 1 tablet as Once a day PRN needed SEVERE PAIN Vicodin [facility] 62622046996 5-300 MG Orally Dec Inactive 1 t ablet as every 6 hrs 17, needed 2018 Humulin R [facility] 79784511829 100 UNIT/ML Dec Active inject 2-18 Injection twice 13, units pe r a day 2019 sliding scale OneTouch Verio [facility] 14218292994 - In Vitro 4 Dec Active 1 test strip times a day 2018 Tresiba [facility] 20912916393 200 UNIT/ML Dec Active inject 3 0 units FlexTouch Subcutaneous 17, Once a day 2018 Cymbalta [facility] 52891473799 60 MG Orally Active 1 caps ule Twice a day Insulin Syringe [facility] 00290763986 30G X 1/2 Active 1 syringe subcutaneously six times a day One Touch NDC 0 Active not defined Delica Lancets Humulin N [facility] 99067659857 100 UNIT/ML Inactive INJEC T 20 UNITS Subcutaneous SUBCUTANEOU SLY 2 TIMES A DAY WITH MEALS Results No Known Results Summary Purpose eClinicalWorks Submission
--- OUTSIDE RECORDS SUMMARY | 2019-07-07 01:45 | XMS REPORT ---
:1965 Author Organization eClinicalWorks Care Team Providers Name Role Phone Roberto Abrams Provider Role Unavailable Allergies No Known Allergies Problems Problem Type Condition Code Onset Dates Condition Statu s Problem Tobacco use disorder F17.200 Active Problem Mixed hyperlipidemia E78.2 Active Problem Other chronic pain G89.29 Active Problem Type 2 diabetes mellitus with other E11.29 Active diabetic kidney complication Problem Type 2 diabetes mellitus with E11.42 Active diabetic polyneuropathy Problem Insomnia, unspecified type G47.00 A ctive Problem Chronic obstructive pulmonary J44.9 Active disease, unspecified COPD type Problem Depression with anxiety F41.8 Acti ve Problem group home (current) use of insulin Z79.4 Active Problem GERD without esophagitis K21.9 Act mike Assessment Type 2 diabetes mellitus with E11.42 Active diabetic polyneuropathy Assessment GERD without esophagitis K21.9 Act mike Problem HTN, goal below 130/80 I10 Activ e Assessment Depression with anxiety F41.8 Acti ve Problem Allergic rhinitis, unspecified J30.9 Active seasonality, unspecified trigger Medications Medication Code Code Instructions Start End Status Dosage System Date Date Metformin HCl [facility] 83508264817 500 MG Oral Inactive T ALEX 2 TABLETS BY MOUTH EVERY DAY Pantoprazole [facility] 14610407852 40 MG Orally Active 1 tablet Sodium Once a day Humulin R [facility] 85154058018 100 UNIT/ML Mar 11, Active inject Injection twice 2019 2-18 uni ts a day per sliding scale One Touch NDC 0 Once twice a Inactive one Delica test day strips OneTouch Verio [facility] 29501674010 - In Vitro Mar 11, Active 1 test times a day 2018 strip Cymbalta [facility] 67872761247 60 MG Orally Active 1 caps ule Twice a day Duloxetine HCl [facility] 15239081330 60 MG Oral Inactive T ALEX 1 CAPSULE TWICE DAILY Results No Known Results Summary Purpose eClinicalWorks Submission
--- OUTSIDE RECORDS SUMMARY | 2019-07-07 01:45 | XMS REPORT ---
:1965 Author Organization eClinicalWorks Care Team Providers Name Role Phone AbramsRoberto Provider Role Unavailable Allergies No Known Allergies Problems Problem Type Condition Code Onset Dates Condition Statu s Problem Tobacco use disorder F17.200 Active Problem Mixed hyperlipidemia E78.2 Active Problem Other chronic pain G89.29 Active Assessment Type 2 diabetes mellitus with E11.42 Active diabetic polyneuropathy Problem HTN, goal below 130/80 I10 Activ e Problem Allergic rhinitis, unspecified J30.9 Active seasonality, unspecified trigger Problem Type 2 diabetes mellitus with other E11.29 Active diabetic kidney complication Problem Type 2 diabetes mellitus with E11.42 Active diabetic polyneuropathy Problem Insomnia, unspecified type G47.00 A ctive Problem Chronic obstructive pulmonary J44.9 Active disease, unspecified COPD type Problem Depression with anxiety F41.8 Acti ve Problem long term care phlebotomist (current) use of insulin Z79.4 Active Problem GERD without esophagitis K21.9 Act mike Medications Medication Code System Code Instructions Start Date End Date Status Dosage Gabapentin [facility] 62786680596 600 MG Orally Active 1 t ablet three times a day Results No Known Results Summary Purpose eClinicalWorks Submission
[2019-07-07] MEDS ORDERED: PANTOPRAZOLE 40 MG INJ IVP ONE (01:46)
[2019-07-07] MEDS ORDERED: SODIUM CHLORIDE 0.9% 10ML INJ IV PRN (01:46)
[2019-07-07 01:47] VITALS: BMI 21.7
[2019-07-07] MEDS ORDERED: ALBUTEROL 2.5 MG/3 ML NEB SOL NEB SCH (02:00)
[2019-07-07] MEDS: NA CHLORIDE 0.9% 1,000 ML IV SCH ×2 (02:09→15:43)
[2019-07-07] MEDS: IPRATROPIUM BROM 0.5MG/2.5ML NEB SCH ×4 (02:13→19:55)
[2019-07-07 02:19] LABS: Absolute Lymphocytes (CBC) 0.6 K/uL (0.7-4.9); Basophils % 1.8 % (0-1.3); Hematocrit 24.8 % (39.6-49.0); Lymphocytes % 10.7 % (15.3-44.8); MPV 9.6 fL (7.6-11.3); RBC Red Blood Cell Count 2.81 M/uL (4.33-5.43)
[2019-07-07 02:31] LABS: Albumin 2.4 g/dL (3.4-5.0); Bilirubin Total 0.3 mg/dL (0.2-1.0); Potassium 3.9 mmol/L (3.5-5.1); Protein, Total 6.3 g/dL (6.4-8.2)
[2019-07-07] MEDS: CODEINE 30MG/APAP 300MG TAB PO PRN ×2 (03:03→17:27)
[2019-07-07] MEDS: DULOXETINE 30 MG CAP PO SCH ×3 (03:06→20:51)
[2019-07-07] MEDS ORDERED: ERTAPENEM SODIUM 1 GM VIAL IVPB SCH (08:00)
[2019-07-07] MEDS: INSULIN GLARGINE 100 UNITS/ML SQ SCH ×3 (08:00→21:35)
[2019-07-07] MEDS ORDERED: PANTOPRAZOLE 40 MG INJ IVP SCH (09:00)
[2019-07-07] MEDS: levETIRAcetam 500 MG TAB PO SCH (09:20)
[2019-07-07] MEDS: GABAPENTIN 300 MG CAP PO SCH ×3 (09:21→20:52)
[2019-07-07] MEDS: MIDODRINE HCL 5 MG TABLET PO SCH ×2 (09:21→20:52)
[2019-07-07] MEDS ORDERED: INSULIN 70/30 100 UNITS/ML SQ ONE ×2 (12:30→17:39)
[2019-07-07] MEDS: Meropenem 1,000 MG in NA CHLORIDE 0.9% 100 ML IV SCH ×2 (12:46→20:51)
[2019-07-07] MEDS: PANTOPRAZOLE 40MG TABLET PO SCH (15:44)
[2019-07-07] MEDS: ALBUTEROL 2.5 MG/3 ML NEB SOL NEB SCH (19:55)
[2019-07-07] MEDS: TAMSULOSIN 0.4 MG SR CAP PO SCH (20:52)
[2019-07-07] MEDS: ATORVASTATIN 20 MG TAB PO SCH (20:52)
--- NOTE | 2019-07-08 01:10 | P.HP ---
Certification for Inpatient Patient admitted to: Inpatient With expected LOS: >2 Midnights Patient will require the following post-hospital care: None Practitioner: I am a practitioner with admitting privileges, knowledge of patient current condition, hospital course, and medical plan of care. Services: Services provided to patient in accordance with Admission requirements found in Title 42 Section 412.3 of the Code of Federal Regulations Patient History Date of Service: 07/07/19 Reason for admission: ESBL E coli; bacteremic; generalized weakness; GI bleed History of Present Illness: Patient is a 54-year-old gentleman who was here for prolonged hospitalization. He has had recurrent admissions and he has been very noncompliant throughout his hospitalization. He tends to be abusive to the nursing staff at times. He has not been feeling well for the last month. He has had extensive workup performed on him after he was found in a ditch. He had left against medical advice and the following day had to come back to the ER because he was found lethargic and confused. He had a fall into a ditch. He had fracture lines but no intervention was necessary per Orthopedics. Patient was also found to have acute on chronic kidney disease. This was secondary to postobstructive renal failure/obstructive uropathy. Patient has a history of alcohol abuse as well as seizure disorder. Patient also had diabetic ketoacidosis. This resolved as well. Patient has generalized weakness. Patient will need case management to assist with placement. Allergies No Known Allergies Allergy (Verified 07/07/19 02:13) Home Medications: Atorvastatin Calcium [Lipitor*] 20 mg PO BEDTIME 06/12/19 Duloxetine HCl [Cymbalta] 60 mg PO BID 06/12/19 Fenofibrate [Tricor*] 160 mg PO DAILY 06/12/19 Folic Acid 1 mg PO DAILY 06/12/19 Levetiracetam [Keppra] 1,000 mg PO DAILY 06/12/19 Pantoprazole Sodium [Protonix] 40 mg PO DAILY 06/12/19 Codeine/APAP [Tylenol W/Codeine #3 tab] 1 tab PO TID PRN #15 tab 06/28/19 Gabapentin 600 mg PO TID #90 tablet 06/28/19 Insulin Glargine Human [Lantus*] 20 units SQ DAILY WITH BREAKFAST #1 bottle 06/28/19 Magnesium Oxide [Mag 0X*] 400 mg PO BID #60 tab 06/28/19 Midodrine HCl [Proamatine*] 5 mg PO BID #60 tab 06/28/19 Sitagliptin Phosphate [Januvia] 25 mg PO DAILY #30 tablet 06/28/19 Tamsulosin [Flomax*] 0.4 mg PO BEDTIME #30 cap 06/28/19 Thiamine HCl 100 mg PO DAILY #90 tablet 06/28/19 - Past Medical/Surgical History Has patient received pneumonia vaccine in the past: No Diabetic: Yes -: DM-IDDM -: Seizure -: HTN -: HLD -: COPD -: GERD -: L humerous sx with Titanium marjorie placement -: L hip and R hip sx - Family History Father Medical History: Heart disease, Other (see notes) Notes: [facility] Mother Medical History: Heart disease Notes: dementia - Social History Smoking Status: Current every day smoker Alcohol use: No CD- Drugs: No Caffeine use: Yes Place of Residence: [facility] Review of Systems 10-point ROS is otherwise unremarkable Physical Examination - Vital Signs Temperature: 98.3 F Blood Pressure: 101/65 Pulse: 78 Respirations: 18 Pulse Ox (%): 98 - Physical Exam General: Alert, In no apparent distress, Oriented x3 HEENT: Atraumatic, PERRLA, Mucous membr. moist/pink, EOMI, Sclerae nonicteric Neck: Supple, 2+ carotid pulse no bruit, No LAD, Without JVD or thyroid abnormality Respiratory: Clear to auscultation bilaterally, Normal air movement Cardiovascular: Regular rate/rhythm, Normal S1 S2, Systolic murmur Gastrointestinal: Normal bowel sounds, Soft and benign, Non-distended, No tenderness Musculoskeletal: No clubbing, No swelling, No tenderness Integumentary: No rashes Neurological: Normal speech, Normal tone, Sensation intact, Cranial nerves 3-12 intact, Normal affect, Abnormal gait, Abnormal strength Lymphatics: No axilla or inguinal lymphadenopathy - Studies Laboratory Data (last 24 hrs) 07/07/19 01:58: Sodium 134 L, Potassium 3.9, BUN 27 H D, Creatinine 1.86 H, Glucose 359 H, Total Bilirubin 0.3, AST 20, ALT 27, Alkaline Phosphatase 192 H 07/07/19 01:58: WBC 5.5 D, Hgb 8.1 L, Hct 24.8 L, Plt Count 129 L Assessment & Plan - Problems (Diagnosis) (1) Acute kidney injury Current Visit: No Status: Acute (2) Coffee ground emesis Current Visit: No Status: Acute (3) DKA (diabetic ketoacidoses) Current Visit: No Status: Acute (4) Hip fracture Current Visit: No Status: Acute (5) History of seizure Current Visit: No Status: Acute (6) Hyperkalemia Current Visit: No Status: Acute (7) Obstructive uropathy Current Visit: No Status: Acute (8) Urinary retention Current Visit: No Status: Acute - Plan Plan: 1. Continue with IV hydration and PPI twice daily 2. Continue with IV antibiotics; ESBL E coli-will treat with Invanz 3. Continue with pain control 4. Advanced diet as tolerated 5. Strict blood sugar control 6. Serial H&H, and we will monitor LFTs and lipase along with electrolytes. 7. Continue medication for seizure disorder 8. GI and DVT prophylax Discharge Plan: Home Plan to discharge in: Greater than 2 days - Advance Directives Does patient have a Living Will: No Does patient have a Durable POA for Healthcare: No - Code Status/Comfort Care Code Status Assessed: Yes Code Status: Full Code Critical Care: No Time Spent Managing PTS Care (In Minutes): 40
[2019-07-08] MEDS: ALBUTEROL 2.5 MG/3 ML NEB SOL NEB SCH ×4 (01:20→20:00)
[2019-07-08] MEDS: IPRATROPIUM BROM 0.5MG/2.5ML NEB SCH ×4 (01:20→20:00)
[2019-07-08 06:28] LABS: Absolute Lymphocytes (CBC) 0.6 K/uL (0.7-4.9); Basophils % 0.4 % (0-1.3); Hematocrit 23.5 % (39.6-49.0); Lymphocytes % 14.1 % (15.3-44.8); MPV 9.4 fL (7.6-11.3); RBC Red Blood Cell Count 2.69 M/uL (4.33-5.43)
[2019-07-08 06:58] LABS: Albumin 2.3 g/dL (3.4-5.0); Bilirubin Total 0.2 mg/dL (0.2-1.0); Potassium 3.4 mmol/L (3.5-5.1); Protein, Total 6.3 g/dL (6.4-8.2)
[2019-07-08] MEDS: NA CHLORIDE 0.9% 1,000 ML IV SCH ×2 (06:58→10:38)
[2019-07-08 07:05] LABS: Magnesium 0.9 mg/dL (1.8-2.4)
[2019-07-08] MEDS: Meropenem 1,000 MG in NA CHLORIDE 0.9% 100 ML IV SCH ×4 (08:13→22:35)
[2019-07-08] MEDS: GABAPENTIN 300 MG CAP PO SCH ×3 (08:31→22:36)
[2019-07-08] MEDS: DULOXETINE 30 MG CAP PO SCH ×2 (08:32→22:36)
[2019-07-08] MEDS: levETIRAcetam 500 MG TAB PO SCH (08:32)
[2019-07-08] MEDS: MIDODRINE HCL 5 MG TABLET PO SCH ×2 (08:32→22:36)
[2019-07-08] MEDS: PANTOPRAZOLE 40MG TABLET PO SCH ×2 (08:32→15:52)
[2019-07-08] MEDS: Magnesium Sulfate 2gm IVPB 2 G/50 ML BAG IV SCH ×2 (08:34→09:20)
--- NOTE | 2019-07-08 09:16 | P.PN ---
Subjective Date of Service: 07/08/19 Patient's hemoglobin was low. He states he is okay with taking 1 unit of packed red blood cells. His magnesium level came back really low. We will go ahead and replace his magnesium. patient also wants to try to get set up to go back to stay with his brother. He has 2 brothers in [place] and he states that 1 of them is a baggage porter head. He is welcome to stay with them. He needs 1 more week of IV antibiotics for his positive blood cultures. We will arrange for Invanz x1 week. He should be stable for discharge once all these arrangements are completed. Review of Systems 10-point ROS is otherwise unremarkable Physical Examination - Vital Signs Temperature: 98.0 F Blood Pressure: 100/62 Pulse: 90 Respirations: 17 Pulse Ox (%): 100 - Physical Exam General: Alert, In no apparent distress, Oriented x3 Respiratory: Clear to auscultation bilaterally, Normal air movement Cardiovascular: Regular rate/rhythm, Normal S1 S2, No murmurs Gastrointestinal: Normal bowel sounds, Soft and benign, Non-distended, No tenderness Musculoskeletal: No clubbing, No swelling, No tenderness Neurological: Normal speech, Normal strength at 5/5 x4 extr, Cranial nerves 3-12 intact - Studies Laboratory Data (last 24 hrs) 07/08/19 06:10: Sodium 138, Potassium 3.4 L, BUN 17, Creatinine 1.54 H, Glucose 313 H, Phosphorus 2.0 L, Magnesium 0.9 L* D, Total Bilirubin 0.2, AST 17, ALT 23, Alkaline Phosphatase 199 H 07/08/19 06:10: WBC 4.1 L D, Hgb 7.8 L*, Hct 23.5 L, Plt Count 127 L Medications List Reviewed: Yes Assessment & Plan - Problems (Diagnosis) (1) Acute kidney injury Current Visit: No Status: Acute (2) Coffee ground emesis Current Visit: No Status: Acute (3) DKA (diabetic ketoacidoses) Current Visit: No Status: Acute (4) Hip fracture Current Visit: No Status: Acute (5) History of seizure Current Visit: No Status: Acute (6) Hyperkalemia Current Visit: No Status: Acute (7) Obstructive uropathy Current Visit: No Status: Acute (8) Urinary retention Current Visit: No Status: Acute - Plan Plan: 1. Transfuse an additional unit of packed red blood cells 2. Continue with IV antibiotics; ESBL E coli-will treat with Invanz; arrange for Invanz 500 mg IV piggyback x1 week; patient will need CBC and BMP checked in 1 week 3. Continue with pain control 4. Advanced diet as tolerated 5. Strict blood sugar control 6. Serial H&H, and we will monitor LFTs and lipase along with electrolytes. 7. Continue medication for seizure disorder 8. GI and DVT prophylax Discharge Plan: Home Plan to discharge in: Greater than 2 days - Advance Directives Does patient have a Living Will: No Does patient have a Durable POA for Healthcare: No - Code Status/Comfort Care Code Status: Full Code Critical Care: No Time Spent Managing PTS Care (In Minutes): 30
[2019-07-08] MEDS ORDERED: NA CHLORIDE 0.9% 250 ML ONE (10:49)
[2019-07-08] MEDS: CODEINE 30MG/APAP 300MG TAB PO PRN (12:31)
[2019-07-08] MEDS ORDERED: D50W 25 GM/50 ML SYRINGE/VIAL IV PRN (13:27)
[2019-07-08] MEDS ORDERED: GLUCAGON 1 MG/VIAL IM PRN (13:27)
[2019-07-08] MEDS ORDERED: INSULIN GLARGINE 100 UNITS/ML SQ ONE (13:28)
[2019-07-08] MEDS: ENSURE HIGH PROTEIN 237 ML CAN PO SCH ×2 (13:39→22:41)
[2019-07-08 16:28] LABS: Hematocrit 26.3 % (39.6-49.0)
[2019-07-08] MEDS: GLIMEPIRIDE 2 MG TABLET PO SCH (17:23)
--- NOTE | 2019-07-08 20:04 | RAD REPORT ---
EXAM DESCRIPTION: RAD - Chest Single View - 07/08/2019 7:57 pm CLINICAL HISTORY: picc confirmation Chest pain. COMPARISON: Abdomen 1 View (KUB) dated 07/03/2019; Chest Single View dated 07/02/2019; Chest Single View dated 06/20/2019; Chest Single View dated 06/11/2019 FINDINGS: Portable technique limits examination quality. No PICC line is visualized on the presented image.
[2019-07-08] MEDS ORDERED: INSULIN 70/30 100 UNITS/ML SQ ONE (21:10)
[2019-07-08] MEDS ORDERED: GLIMEPIRIDE 2 MG TABLET PO ONE (22:31)
[2019-07-08] MEDS: ATORVASTATIN 20 MG TAB PO SCH (22:36)
[2019-07-08] MEDS: TAMSULOSIN 0.4 MG SR CAP PO SCH (22:36)
[2019-07-09] MEDS: IPRATROPIUM BROM 0.5MG/2.5ML NEB SCH ×4 (02:00→20:00)
[2019-07-09] MEDS: ALBUTEROL 2.5 MG/3 ML NEB SOL NEB SCH ×4 (02:00→20:00)
[2019-07-09] MEDS: CODEINE 30MG/APAP 300MG TAB PO PRN ×2 (03:10→20:33)
[2019-07-09 06:00] LABS: Absolute Lymphocytes (CBC) 0.8 K/uL (0.7-4.9); Basophils % 0.5 % (0-1.3); Hematocrit 25.7 % (39.6-49.0); Lymphocytes % 14.5 % (15.3-44.8); MPV 9.4 fL (7.6-11.3); RBC Red Blood Cell Count 2.96 M/uL (4.33-5.43)
[2019-07-09] MEDS: PANTOPRAZOLE 40MG TABLET PO SCH ×2 (06:13→16:12)
[2019-07-09] MEDS ORDERED: INSULIN GLARGINE 100 UNITS/ML SQ SCH (08:00)
[2019-07-09] MEDS: Meropenem 1,000 MG in NA CHLORIDE 0.9% 100 ML IV SCH ×2 (08:56→20:31)
[2019-07-09] MEDS: INSULIN GLARGINE 100 UNITS/ML SQ SCH (08:57)
[2019-07-09] MEDS: levETIRAcetam 500 MG TAB PO SCH (08:58)
[2019-07-09] MEDS: GLIMEPIRIDE 2 MG TABLET PO SCH ×2 (08:58→16:13)
[2019-07-09] MEDS: DULOXETINE 30 MG CAP PO SCH ×2 (08:58→20:32)
[2019-07-09] MEDS: ENSURE HIGH PROTEIN 237 ML CAN PO SCH ×3 (08:59→20:34)
[2019-07-09] MEDS: MIDODRINE HCL 5 MG TABLET PO SCH ×2 (08:59→20:32)
[2019-07-09] MEDS: GABAPENTIN 300 MG CAP PO SCH ×3 (08:59→20:32)
[2019-07-09 09:23] LABS: Urine Appearance CLEAR; Urine Bilirubin NEGATIVE (NEG); Urine Blood NEGATIVE (NEG); Urine Color YELLOW; Urine Glucose 3+ (NEG); Urine Protein NEGATIVE (NEG); Urine Urobilinogen 0.2 mg/dL (0.2-1.0)
[2019-07-09] MEDS ORDERED: GLUCAGON 1 MG/VIAL IM PRN (09:28)
[2019-07-09] MEDS ORDERED: D50W 25 GM/50 ML SYRINGE/VIAL IV PRN (09:28)
[2019-07-09 09:39] LABS: Urine Bacteria <20 /HPF (NONE SEEN); Urine Culture Reflex Order REFLEXED
--- NOTE | 2019-07-09 11:22 | P.PN ---
Subjective Date of Service: 07/09/19 Chief Complaint: ESBL E coli; bacteremic; generalized weakness; GI bleed Subjective: No new changes Patient currently has no complain. He states he has good appetite. Blood sugar readings are high. Physical Examination - Vital Signs Temperature: 98.1 F Blood Pressure: 110/75 Pulse: 75 Respirations: 15 Pulse Ox (%): 98 - Physical Exam General: In no apparent distress, Cooperative HEENT: Mucous membr. moist/pink Neck: Supple Respiratory: Clear to auscultation bilaterally, Normal air movement Cardiovascular: No edema, Regular rate/rhythm, Normal S1 S2 Gastrointestinal: Normal bowel sounds, Non-distended, No tenderness Neurological: Other (Nonfocal) Urinary: Keene catheter - Studies Laboratory Data (last 24 hrs) 07/09/19 05:30: Sodium 132 L, Potassium 4.0, BUN 15, Creatinine 1.37 H, Glucose 347 H 07/09/19 05:30: WBC 5.3 D, Hgb 8.6 L, Hct 25.7 L, Plt Count 165 D 07/08/19 : Hct Cancelled 07/08/19 20:02: Glucose Cancelled 07/08/19 17:32: Glucose 486 H* 07/08/19 15:59: Magnesium 1.9 D 07/08/19 15:59: Hgb 8.7 L, Hct 26.3 L Medications List Reviewed: Yes Assessment And Plan - Current Problems (Diagnosis) (1) Acute blood loss anemia Current Visit: Yes Status: Acute (2) ESBL (extended spectrum beta-lactamase) producing bacteria infection Current Visit: Yes Status: Acute (3) Hip fracture Current Visit: No Status: Chronic (4) Obstructive uropathy Current Visit: No Status: Acute (5) Urinary retention Current Visit: No Status: Acute (6) Seizure disorder Current Visit: Yes Status: Acute (7) DM type 2 (diabetes mellitus, type 2) Current Visit: Yes Status: Acute - Plan Continue IV meropenem. Patient is supposed to complete 1 week of IV meropenem. PICC line is in place for outpatient IV antibiotics. Continue and titrate Lantus insulin. Aggressive insulin sliding scale. Patient wants to go and live with his brothers in [place]. Social work/case management to assist with the arrangement as long as his brother is in agreement.
[2019-07-09] MEDS: INSULIN -REGULAR HUMAN 50 UNIT/0.5 ML ML SQ SCH ×4 (13:02→20:48)
[2019-07-09] MEDS: NA CHLORIDE 0.9% 1,000 ML IV SCH ×2 (17:52→20:33)
[2019-07-09] MEDS: ATORVASTATIN 20 MG TAB PO SCH (20:32)
[2019-07-09] MEDS: TAMSULOSIN 0.4 MG SR CAP PO SCH (20:32)
[2019-07-09] MEDS ORDERED: GLIMEPIRIDE 2 MG TABLET PO ONE (21:55)
[2019-07-10] MEDS: TEMAZEPAM 15 MG CAP PO PRN ×2 (00:38→23:47)
[2019-07-10] MEDS: ALBUTEROL 2.5 MG/3 ML NEB SOL NEB SCH ×4 (02:00→20:00)
[2019-07-10] MEDS: IPRATROPIUM BROM 0.5MG/2.5ML NEB SCH ×2 (02:00→08:00)
[2019-07-10] MEDS ORDERED: SODIUM CHLORIDE 0.9% 10ML INJ IV PRN ×2 (05:00)
[2019-07-10] MEDS ORDERED: LIDOCAINE 1% MPF 5 ML VIAL IM PRN (05:00)
[2019-07-10] MEDS: Meropenem 1,000 MG in NA CHLORIDE 0.9% 100 ML IV SCH ×2 (09:12→21:04)
[2019-07-10] MEDS: PANTOPRAZOLE 40MG TABLET PO SCH ×2 (09:13→16:59)
[2019-07-10] MEDS: DULOXETINE 30 MG CAP PO SCH ×2 (09:13→21:02)
[2019-07-10] MEDS: levETIRAcetam 500 MG TAB PO SCH (09:13)
[2019-07-10] MEDS: GLIMEPIRIDE 2 MG TABLET PO SCH ×2 (09:13→16:54)
[2019-07-10] MEDS: GABAPENTIN 300 MG CAP PO SCH ×3 (09:14→21:06)
[2019-07-10] MEDS: INSULIN -REGULAR HUMAN 50 UNIT/0.5 ML ML SQ SCH ×4 (09:14→21:04)
[2019-07-10] MEDS: INSULIN GLARGINE 100 UNITS/ML SQ SCH (09:14)
[2019-07-10] MEDS: SODIUM CHLORIDE 0.9% 10ML INJ IV SCH ×2 (09:16→21:04)
[2019-07-10] MEDS: MIDODRINE HCL 5 MG TABLET PO SCH ×2 (09:18→21:03)
[2019-07-10] MEDS: ENSURE HIGH PROTEIN 237 ML CAN PO SCH ×3 (09:29→21:08)
[2019-07-10] MEDS ORDERED: IPRATROPIUM BROM 0.5MG/2.5ML NEB PRN (09:43)
--- NOTE | 2019-07-10 09:44 | P.PN ---
Subjective Date of Service: 07/10/19 (Hospitalist) Chief Complaint: ESBL E coli; bacteremic; generalized weakness; GI bleed Subjective: Improving (Patient is improving his very agitated irritated and wants to go home now the complaint) Review of Systems Unremarkable Physical Examination - Vital Signs Temperature: 98.3 F Blood Pressure: 92/58 Pulse: 96 Respirations: 16 Pulse Ox (%): 97 - Physical Exam General: Alert, Oriented x3 Respiratory: Clear to auscultation bilaterally Cardiovascular: No edema, Regular rate/rhythm - Studies Laboratory Data (last 24 hrs) 07/09/19 15:08: Glucose 383 H 07/09/19 12:06: Glucose Cancelled Medications List Reviewed: Yes Assessment & Plan - Problems (Diagnosis) (1) ESBL (extended spectrum beta-lactamase) producing bacteria infection Current Visit: Yes Status: Acute Plan: Patient has an ESBL infection continue with meropenem recent blood cultures negative afebrile vital signs stable currently he has had infections before of the urinary tract renal ultrasound shown mild hydronephrosis patient was seen by design assistant awaiting IV antibiotics to be setup home hemoglobin stable renal function is improved labs ordered
--- NOTE | 2019-07-10 11:19 | RAD REPORT ---
EXAM DESCRIPTION: RAD - Chest Single View - 07/10/2019 12:14 am CLINICAL HISTORY: The patient is 54 years old and is Male; PICC placement TECHNIQUE: Frontal view of the chest. COMPARISON: No relevant prior studies available. FINDINGS: LUNGS: Unremarkable. No consolidation. PLEURAL SPACE: Unremarkable. No pneumothorax. HEART: Unremarkable. No cardiomegaly. MEDIASTINUM: Unremarkable. BONES/JOINTS: Postsurgical change of the left shoulder with a shoulder prosthesis is noted. TUBES, LINES AND DEVICES: A right upper extremity PICC is present with the tip at the SVC/RA jany ction. IMPRESSION: A right upper extremity PICC is present with the tip at the SVC/RA junction. Electronically signed by: Dori Yarbrough MD 07/10/2019 12:30 AM CDT Due to temporary technical issues with the PACS/Fluency reporting system, reports are being signed by the in house radiologist as a courtesy to ensure prompt reporting. The interpreting radiologist is f ully responsible for the content of the report.
[2019-07-10] MEDS: CODEINE 30MG/APAP 300MG TAB PO PRN (21:03)
[2019-07-10] MEDS: TAMSULOSIN 0.4 MG SR CAP PO SCH (21:03)
[2019-07-10] MEDS: ATORVASTATIN 20 MG TAB PO SCH (21:03)
[2019-07-11] MEDS: ALBUTEROL 2.5 MG/3 ML NEB SOL NEB SCH ×4 (02:00→20:00)
[2019-07-11 06:20] LABS: Hematocrit 26.3 % (39.6-49.0); MPV 8.8 fL (7.6-11.3); RBC Red Blood Cell Count 2.99 M/uL (4.33-5.43)
[2019-07-11 06:32] LABS: Potassium 4.8 mmol/L (3.5-5.1)
[2019-07-11] MEDS: INSULIN -REGULAR HUMAN 50 UNIT/0.5 ML ML SQ SCH ×5 (06:44→20:30)
[2019-07-11] MEDS ORDERED: PANTOPRAZOLE 40MG TABLET PO SCH (07:30)
[2019-07-11] MEDS ORDERED: Meropenem 1,000 MG in NA CHLORIDE 0.9% 100 ML IV SCH (09:00)
[2019-07-11] MEDS ORDERED: ERTAPENEM SODIUM 1 GM VIAL IVPB SCH (09:00)
--- NOTE | 2019-07-11 09:16 | P.PN ---
Subjective Date of Service: 07/11/19 Chief Complaint: ESBL E coli; bacteremic; generalized weakness; GI bleed Patient has no complain. He wants to be discharged today Blood sugar readings high this morning. Physical Examination - Vital Signs Temperature: 98.6 F Blood Pressure: 99/57 Pulse: 73 Respirations: 16 Pulse Ox (%): 94 - Physical Exam General: Alert, In no apparent distress, Oriented x3 HEENT: Mucous membr. moist/pink Respiratory: Clear to auscultation bilaterally, Normal air movement Cardiovascular: No edema, Regular rate/rhythm, Normal S1 S2 Gastrointestinal: Normal bowel sounds, Soft and benign, No tenderness Neurological: Other (Nonfocal) Urinary: Keene catheter - Studies Laboratory Data (last 24 hrs) 07/11/19 05:35: Sodium 132 L, Potassium 4.8, BUN 25 H, Creatinine 1.27, Glucose 443 H* 07/11/19 05:35: WBC 6.4 D, Hgb 8.5 L, Hct 26.3 L, Plt Count 215 D Microbiology Data (last 24 hrs): 07/09/19 09:10 Catheterized Urine [place] Count - Final 07/09/19 09:10 Catheterized Urine - Final No growth. Medications List Reviewed: Yes Assessment And Plan - Current Problems (Diagnosis) (1) Acute blood loss anemia Current Visit: Yes Status: Acute (2) ESBL (extended spectrum beta-lactamase) producing bacteria infection Current Visit: Yes Status: Acute (3) Hip fracture Current Visit: No Status: Chronic (4) Obstructive uropathy Current Visit: No Status: Acute (5) Urinary retention Current Visit: No Status: Acute (6) Seizure disorder Current Visit: Yes Status: Acute (7) DM type 2 (diabetes mellitus, type 2) Current Visit: Yes Status: Acute - Plan Hemoglobin is stable. Given a dose of Invanz prior to discharge. Patient has completed 3 days of IV meropenem. PICC line is in place for outpatient IV antibiotics. Continue Lantus insulin and aggressive insulin sliding scale. He is also glimepiride. Social work/case management to assist with the arrangement for him to go and live with his brother at [place].
[2019-07-11] MEDS: INSULIN GLARGINE 100 UNITS/ML SQ SCH (09:43)
[2019-07-11] MEDS: CODEINE 30MG/APAP 300MG TAB PO PRN (09:44)
[2019-07-11] MEDS: DULOXETINE 30 MG CAP PO SCH ×2 (09:45→20:29)
[2019-07-11] MEDS: MIDODRINE HCL 5 MG TABLET PO SCH ×2 (09:45→20:29)
[2019-07-11] MEDS: levETIRAcetam 500 MG TAB PO SCH (09:45)
[2019-07-11] MEDS: GABAPENTIN 300 MG CAP PO SCH ×3 (09:45→20:31)
[2019-07-11] MEDS: GLIMEPIRIDE 2 MG TABLET PO SCH ×2 (09:45→17:33)
[2019-07-11] MEDS: ENSURE HIGH PROTEIN 237 ML CAN PO SCH ×2 (09:48→14:00)
[2019-07-11] MEDS: SODIUM CHLORIDE 0.9% 10ML INJ IV SCH ×2 (09:59→20:32)
--- NOTE | 2019-07-11 10:48 | P.DS ---
Admission Date: 07/07/19 Discharge Date: 07/11/19 Disposition: [facility] HOME/HOME HEALTH CARE Reason for Admission: ESBL E coli; bacteremic; generalized weakness; GI bleed - Problems (1) Acute blood loss anemia Current Visit: Yes Status: Acute (2) ESBL (extended spectrum beta-lactamase) producing bacteria infection Current Visit: Yes Status: Acute (3) Hip fracture Current Visit: No Status: Chronic (4) Obstructive uropathy Current Visit: No Status: Acute (5) Urinary retention Current Visit: No Status: Acute (6) Seizure disorder Current Visit: Yes Status: Acute (7) DM type 2 (diabetes mellitus, type 2) Current Visit: Yes Status: Acute (8) GI bleed Current Visit: Yes Status: Acute Brief History of Present Illness: 54-year-old gentleman with a history of diabetes had a prolonged hospitalization for urinary retention, obstructive uropathy. At one point he signed out against medical advise, reported to have fallen in a ditch on his way home, sustained left hip fracture. He has a history of bilateral avascular necrosis of the hips. Patient was not compliant most of the time during the hospital stay. He developed acute anemia and had to be transferred to [facility] way EGD was performed and patient placed on Protonix for GI bleed. His urine culture grew ESBL Klebsiella pneumonia. Patient was transferred back from [facility] to continue antibiotics and for discharge planning. Hospital Course: IV meropenem was continued during this hospital stay. His blood sugars readings were elevated. Noted patient was initially on metformin as an outpatient. His hemoglobin A1c was 12.8. The patient had episodes of severe hyperglycemia. Blood glucose was managed with Lantus insulin and aggressive insulin sliding scale. Lantus insulin was titrated up to 50 units daily. He had a Keene catheter in for obstructive uropathy. This was maintained during this hospital stay. Patient has been on Flomax. He needs to follow with Urology within 2 weeks regarding his urinary retention. He will be discharged with Lantus insulin and insulin sliding scale as well as glimepiride for glucose management. He is also discharged with IV Invanz to complete 1 week of treatment for the UTI. Arrangement is being made for patient to go and live with his brother who is a heater operator helper in [place]. Patient has been pressing for his discharge since day 1. Vital Signs/Physical Exam: Temp Pulse Resp BP Pulse Ox 98.6 F 73 16 99/57 L 94 07/11/19 09:18 07/11/19 09:18 07/11/19 09:44 07/11/19 09:18 07/11/19 09:44 General: In no apparent distress Neck: Supple Respiratory: Clear to auscultation bilaterally, Normal air movement Cardiovascular: No edema, Regular rate/rhythm, Normal S1 S2 Gastrointestinal: Normal bowel sounds, Soft and benign, No tenderness Neurological: Normal strength at 5/5 x4 extr, Other (Nonfocal) Urinary: Keene catheter Laboratory Data at Discharge: WBC 6.4 K/uL (4.3-10.9) D 07/11/19 05:35 Hgb 8.5 g/dL (13.6-17.9) L 07/11/19 05:35 Hct 26.3 % (39.6-49.0) L 07/11/19 05:35 Plt Count 215 K/uL (152-406) D 07/11/19 05:35 Sodium 132 mmol/L (136-145) L 07/11/19 05:35 Potassium 4.8 mmol/L (3.5-5.1) 07/11/19 05:35 BUN 25 mg/dL (7-18) H 07/11/19 05:35 Creatinine 1.27 mg/dL (0.55-1.3) 07/11/19 05:35 Glucose 443 mg/dL (74-106) H* 07/11/19 05:35 Phosphorus 2.0 mg/dL (2.5-4.9) L 07/08/19 06:10 Magnesium 1.9 mg/dL (1.8-2.4) D 07/08/19 15:59 Total Bilirubin 0.2 mg/dL (0.2-1.0) 07/08/19 06:10 AST 17 U/L (15-37) 07/08/19 06:10 ALT 23 U/L (12-78) 07/08/19 06:10 Alkaline Phosphatase 199 U/L (45-117) H 07/08/19 06:10 Home Medications: Alcohol Antiseptic Pads [Alcohol Swabs] 1 each TP TID #100 med..pad 07/11/19 Atorvastatin Calcium [Lipitor*] 20 mg PO BEDTIME #30 tab 07/11/19 Blood-Glucose Meter [Contour] 1 each MC TID #1 kit 07/11/19 Codeine/APAP [Tylenol #3*] 1 tab PO TID PRN #20 tab 07/11/19 Duloxetine HCl [Cymbalta] 60 mg PO BID #30 07/11/19 Ertapenem Na [Invanz] 1 gm IVPB Q24H vial 07/11/19 Folic Acid 1 mg PO DAILY #30 07/11/19 Gabapentin 600 mg PO TID #90 tablet 07/11/19 Glimepiride [Amaryl*] 2 mg PO BIDWM #60 tab 07/11/19 Insulin Aspart [Insulin Aspart Flexpen] 100 unit SQ TID #1 insuln.pen 07/11/19 Insulin Glargine,Hum.rec.anlog [Lantus Solostar] 50 unit SQ DAILY #10 ml 07/11/19 Lancets [Glucocom Lancets] 1 each MC TID #100 each 07/11/19 Levetiracetam [Keppra] 1,000 mg PO DAILY #30 07/11/19 Magnesium Oxide [Mag 0X*] 400 mg PO BID #60 tab 07/11/19 Midodrine HCl [Proamatine*] 5 mg PO BID #60 tab 07/11/19 Pantoprazole [Protonix Tab*] 40 mg PO BIDAC #60 tab 07/11/19 Tamsulosin [Flomax*] 0.4 mg PO BEDTIME #30 cap 07/11/19 Thiamine HCl 100 mg PO DAILY #30 tablet 07/11/19 New Medications: Alcohol Antiseptic Pads [Alcohol Swabs] 1 each TP TID #100 med..pad Glimepiride [Amaryl*] 2 mg PO BIDWM #60 tab Blood-Glucose Meter [Contour] 1 each MC TID #1 kit Duloxetine HCl [Cymbalta] 60 mg PO BID #30 Tamsulosin [Flomax*] 0.4 mg PO BEDTIME #30 cap Folic Acid 1 mg PO DAILY #30 Gabapentin 600 mg PO TID #90 tablet Lancets [Glucocom Lancets] 1 each MC TID #100 each Insulin Aspart [Insulin Aspart Flexpen] 100 unit SQ TID #1 insuln.pen Levetiracetam [Keppra] 1,000 mg PO DAILY #30 Insulin Glargine,Hum.rec.anlog [Lantus Solostar] 50 unit SQ DAILY #10 ml Atorvastatin Calcium [Lipitor*] 20 mg PO BEDTIME #30 tab Magnesium Oxide [Mag 0X*] 400 mg PO BID #60 tab Midodrine HCl [Proamatine*] 5 mg PO BID #60 tab Pantoprazole [Protonix Tab*] 40 mg PO BIDAC #60 tab Thiamine HCl 100 mg PO DAILY #30 tablet Codeine/APAP [Tylenol #3*] 1 tab PO TID PRN #20 tab PRN Reason: Pain Diet: ADA Activity: Fall precautions
[2019-07-11] MEDS: Meropenem 1,000 MG in NA CHLORIDE 0.9% 100 ML IV SCH (17:31)
[2019-07-11] MEDS: PANTOPRAZOLE 40MG TABLET PO SCH (17:33)
[2019-07-11] MEDS: MAGNES/ALUMIN/SIMET 30ML UCUP PO PRN (18:32)
[2019-07-11] MEDS: ATORVASTATIN 20 MG TAB PO SCH (20:29)
[2019-07-11] MEDS: TAMSULOSIN 0.4 MG SR CAP PO SCH (20:31)
[2019-07-11] MEDS: GLUCERNA SHAKE 237 ML CAN PO SCH (20:32)
[2019-07-11 22:18] VITALS: O2SAT 97
[2019-07-11] MEDS: TEMAZEPAM 15 MG CAP PO PRN (23:54)
[2019-07-12] MEDS: Meropenem 1,000 MG in NA CHLORIDE 0.9% 100 ML IV SCH ×2 (01:46→08:25)
[2019-07-12] MEDS: ALBUTEROL 2.5 MG/3 ML NEB SOL NEB SCH ×2 (02:00→08:00)
[2019-07-12] MEDS: MAGNES/ALUMIN/SIMET 30ML UCUP PO PRN (03:03)
[2019-07-12 03:28] LABS: Absolute Lymphocytes (CBC) 1.1 K/uL (0.7-4.9); Basophils % 0.5 % (0-1.3); Hematocrit 26.3 % (39.6-49.0); Lymphocytes % 13.4 % (15.3-44.8); MPV 8.5 fL (7.6-11.3)
[2019-07-12 03:32] LABS: Potassium 5.3 mmol/L (3.5-5.1)
[2019-07-12] MEDS ORDERED: INSULIN GLARGINE 100 UNITS/ML SQ SCH (08:00)
[2019-07-12] MEDS: INSULIN -REGULAR HUMAN 50 UNIT/0.5 ML ML SQ SCH ×2 (08:24→11:44)
[2019-07-12] MEDS: GABAPENTIN 300 MG CAP PO SCH (08:25)
[2019-07-12] MEDS: GLUCERNA SHAKE 237 ML CAN PO SCH (08:26)
[2019-07-12] MEDS: DULOXETINE 30 MG CAP PO SCH (08:26)
[2019-07-12] MEDS: MIDODRINE HCL 5 MG TABLET PO SCH (08:26)
[2019-07-12] MEDS: GLIMEPIRIDE 2 MG TABLET PO SCH (08:26)
[2019-07-12] MEDS: PANTOPRAZOLE 40MG TABLET PO SCH (08:26)
[2019-07-12] MEDS: levETIRAcetam 500 MG TAB PO SCH (08:26)
[2019-07-12] MEDS: SODIUM CHLORIDE 0.9% 10ML INJ IV SCH (09:00)
[2019-07-12] MEDS ORDERED: ERTAPENEM NA 1 GM in NA CHLORIDE 0.9% 100 ML IVPB ONE (11:00)
[2019-07-12 12:08] VITALS: BP 105/66; TEMP 98.1
--- NOTE | 2019-07-12 17:11 | P.DS ---
Admission Date: 07/07/19 Discharge Date: 07/12/19 Disposition: [place] HOME/HOME HEALTH CARE Reason for Admission: ESBL E coli; bacteremic; generalized weakness; GI bleed - Problems (1) Acute blood loss anemia Status: Acute (2) Acute kidney injury Status: Acute (3) Acute renal failure Status: Acute (4) Coffee ground emesis Status: Acute (5) DKA (diabetic ketoacidoses) Status: Acute (6) DM type 2 (diabetes mellitus, type 2) Status: Acute (7) ESBL (extended spectrum beta-lactamase) producing bacteria infection Status: Acute (8) Fall Status: Acute Hospital Course: The is a 54-year-old male with a past medical history of type 2 diabetes mellitus (hemoglobin A1c of 12.8), CKD who presented to the ER fol lowing a fall incident. Apparently patient fell into a ditch. Workup during this admission revealed that he had avascular necrosis of both hips, acute on chronic CKD and severe anemia. He did require blood transfusions during this admission. His renal dysfunction was attributed to obstructive uropathy fall and improve with insertion of Keene catheter. Additional workup also revealed that patient had a UTI with urine culture E during ESBL E coli. Was initially on meropenem than she did transfer to her type and and. He will be on this antibiotic for an additional week. Vital Signs/Physical Exam: Temp Pulse Resp BP Pulse Ox 98.1 F 77 17 105/66 98 07/12/19 12:00 07/12/19 12:00 07/12/19 12:00 07/12/19 12:00 07/12/19 12:00 General: In no apparent distress HEENT: Atraumatic, Normocephalic Respiratory: Clear to auscultation bilaterally, Normal air movement Cardiovascular: No edema, Normal pulses Gastrointestinal: Normal bowel sounds, Hypoactive, Soft and benign Musculoskeletal: No clubbing, No swelling, No contractures, No erythema, No tenderness, No warmth Integumentary: No rashes, No breakdown, No significant lesion, No tenderness/swelling, No erythema, No warmth, No cyanosis Neurological: Normal gait, Normal speech, Normal strength at 5/5 x4 extr Laboratory Data at Discharge: WBC 8.0 K/uL (4.3-10.9) D 07/12/19 03:00 Hgb 8.5 g/dL (13.6-17.9) L 07/12/19 03:00 Hct 26.3 % (39.6-49.0) L 07/12/19 03:00 Plt Count 216 K/uL (152-406) 07/12/19 03:00 Sodium 134 mmol/L (136-145) L 07/12/19 03:00 Potassium 5.3 mmol/L (3.5-5.1) H 07/12/19 03:00 BUN 28 mg/dL (7-18) H 07/12/19 03:00 Creatinine 1.14 mg/dL (0.55-1.3) 07/12/19 03:00 Glucose 360 mg/dL (74-106) H 07/12/19 03:00 Phosphorus 2.0 mg/dL (2.5-4.9) L 07/08/19 06:10 Magnesium 1.9 mg/dL (1.8-2.4) D 07/08/19 15:59 Total Bilirubin 0.2 mg/dL (0.2-1.0) 07/08/19 06:10 AST 17 U/L (15-37) 07/08/19 06:10 ALT 23 U/L (12-78) 07/08/19 06:10 Alkaline Phosphatase 199 U/L (45-117) H 07/08/19 06:10 Home Medications: Alcohol Antiseptic Pads [Alcohol Swabs] 1 each TP TID #100 med..pad 07/11/19 Atorvastatin Calcium [Lipitor*] 20 mg PO BEDTIME #30 tab 07/11/19 Blood-Glucose Meter [Contour] 1 each MC TID #1 kit 07/11/19 Codeine/APAP [Tylenol #3*] 1 tab PO TID PRN #20 tab 07/11/19 Duloxetine HCl [Cymbalta] 60 mg PO BID #30 07/11/19 Ertapenem Na [Invanz] 1 gm IVPB Q24H vial 07/11/19 Folic Acid 1 mg PO DAILY #30 07/11/19 Gabapentin 600 mg PO TID #90 tablet 07/11/19 Glimepiride [Amaryl*] 2 mg PO BIDWM #60 tab 07/11/19 Insulin Aspart [Insulin Aspart Flexpen] 100 unit SQ TID #1 insuln.pen 07/11/19 Insulin Glargine,Hum.rec.anlog [Lantus Solostar] 50 unit SQ DAILY #10 ml 07/11/19 Lancets [Glucocom Lancets] 1 each MC TID #100 each 07/11/19 Levetiracetam [Keppra] 1,000 mg PO DAILY #30 07/11/19 Magnesium Oxide [Mag 0X*] 400 mg PO BID #60 tab 07/11/19 Midodrine HCl [Proamatine*] 5 mg PO BID #60 tab 07/11/19 Pantoprazole [Protonix Tab*] 40 mg PO BIDAC #60 tab 07/11/19 Tamsulosin [Flomax*] 0.4 mg PO BEDTIME #30 cap 07/11/19 Thiamine HCl 100 mg PO DAILY #30 tablet 07/11/19 New Medications: Alcohol Antiseptic Pads [Alcohol Swabs] 1 each TP TID #100 med..pad Glimepiride [Amaryl*] 2 mg PO BIDWM #60 tab Blood-Glucose Meter [Contour] 1 each MC TID #1 kit Duloxetine HCl [Cymbalta] 60 mg PO BID #30 Tamsulosin [Flomax*] 0.4 mg PO BEDTIME #30 cap Folic Acid 1 mg PO DAILY #30 Gabapentin 600 mg PO TID #90 tablet Lancets [Glucocom Lancets] 1 each MC TID #100 each Insulin Aspart [Insulin Aspart Flexpen] 100 unit SQ TID #1 insuln.pen Levetiracetam [Keppra] 1,000 mg PO DAILY #30 Insulin Glargine,Hum.rec.anlog [Lantus Solostar] 50 unit SQ DAILY #10 ml Atorvastatin Calcium [Lipitor*] 20 mg PO BEDTIME #30 tab Magnesium Oxide [Mag 0X*] 400 mg PO BID #60 tab Midodrine HCl [Proamatine*] 5 mg PO BID #60 tab Pantoprazole [Protonix Tab*] 40 mg PO BIDAC #60 tab Thiamine HCl 100 mg PO DAILY #30 tablet Codeine/APAP [Tylenol #3*] 1 tab PO TID PRN #20 tab PRN Reason: Pain Diet: ADA Activity: Fall precautions
== END 2019-07-12 13:00 | disposition home health service (06) | DRG 682 ==
LOC: 2ND 01:35
PROVIDERS: ADMIT Hospitalist; ATTEND Internal Medicine
PROC: 30233N1 Transfusion of Nonautologous Red Blood Cells into Peripheral Vein, Percutaneous Approach (ICD-10-PCS; 2019-07-08)
PROC: 02HV33Z Insertion of Infusion Device into Superior Vena Cava, Percutaneous Approach (ICD-10-PCS; principal; 2019-07-09)
DX: N17.9 Acute kidney failure, unspecified (principal); E11.10 Type 2 diabetes mellitus with ketoacidosis without coma; D62 Acute posthemorrhagic anemia; Z16.12 Extended spectrum beta lactamase (ESBL) resistance; N39.0 Urinary tract infection, site not specified; M87.252 Osteonecrosis due to previous trauma, left femur; N18.9 Chronic kidney disease, unspecified; N13.9 Obstructive and reflux uropathy, unspecified; Z79.899 Other long term (current) drug therapy; Z79.891 Long term (current) use of opiate analgesic; Z79.4 Long term (current) use of insulin; S72.009D Fracture of unspecified part of neck of unspecified femur, subsequent encounter for closed fracture with routine healing; E11.22 Type 2 diabetes mellitus with diabetic chronic kidney disease; Z91.19 Patient's noncompliance with other medical treatment and regimen; E11.65 Type 2 diabetes mellitus with hyperglycemia; E78.5 Hyperlipidemia, unspecified; J44.9 Chronic obstructive pulmonary disease, unspecified; K21.9 Gastro-esophageal reflux disease without esophagitis; F17.200 Nicotine dependence, unspecified, uncomplicated; Z59.0 Homelessness; E87.5 Hyperkalemia; W18.30XA Fall on same level, unspecified, initial encounter; R33.9 Retention of urine, unspecified; I12.9 Hypertensive chronic kidney disease with stage 1 through stage 4 chronic kidney disease, or unspecified chronic kidney disease
CPT/HCPCS: 36415; 36569; 71045; 80048; 80053; 81001; 82947; 83735; 84100; 85014; 85018; 85025; 85027; 85044; 86850; 86900; 86901; 87040; 87086; 87088; 94640; C9113; J1335; J1815; J2405; J3475; J7030; P9016